=== PATIENT | male | born 1965 | race Caucasian/White ===

== ENCOUNTER 2023-06-30 15:52 | Outpatient (OUT) | payer OTHER, SELFPAY ==
[2023-06-30 16:30] LABS: BUN Creatinine Ratio 18.7; Carbon Dioxide 27.9 mmol/L (21.0-32.0); Chloride 109 mmol/L (98-107); Estimated GFR (African America >60 (>=60); Estimated GFR (Non-African Ame >60 (>=60); Glucose 94 mg/dL (74-106); Potassium 3.9 mmol/L (3.5-5.1); Sodium 143 mmol/L (136-145)
== END 2023-06-30 15:53 | disposition home or self-care (01) ==
LOC: LAB 15:52
PROVIDERS: PCP Family Medicine; Visit Provider Nurse Practitioner Acute Care
DX: I10 Essential (primary) hypertension (principal)
CPT/HCPCS: 36415; 80048

== ENCOUNTER 2023-12-07 15:57 | Outpatient (OUT) | payer OTHER, SELFPAY ==
[2023-12-07 16:34] LABS: Anion Gap 12.9; BUN Creatinine Ratio 19.7; Calcium 9.4 mg/dL (8.5-10.1); Carbon Dioxide 26.8 mmol/L (21.0-32.0); Chloride 103 mmol/L (98-107); Estimated GFR (African America 55 (>=60); Estimated GFR (Non-African Ame 45 (>=60); Glucose 92 mg/dL (74-106); Potassium 3.7 mmol/L (3.5-5.1); Sodium 139 mmol/L (136-145)
== END 2023-12-07 15:58 | disposition home or self-care (01) ==
LOC: LAB 15:58
PROVIDERS: PCP Family Medicine; Visit Provider Internal Medicine Interventional Cardiology
DX: I10 Essential (primary) hypertension (principal)
CPT/HCPCS: 36415; 80048

== ENCOUNTER 2024-02-21 15:15 | Outpatient (OUT) | payer OTHER, SELFPAY ==
[2024-02-21 15:55] LABS: Anion Gap 14.8; BUN Creatinine Ratio 19.5; Calcium 9.6 mg/dL (8.5-10.1); Carbon Dioxide 24.8 mmol/L (21.0-32.0); Chloride 105 mmol/L (98-107); Estimated GFR (African America >60 (>=60); Estimated GFR (Non-African Ame 57 (>=60); Glucose 94 mg/dL (74-106); Potassium 3.6 mmol/L (3.5-5.1); Sodium 141 mmol/L (136-145)
== END 2024-02-21 15:16 | disposition home or self-care (01) ==
LOC: LAB 15:16
PROVIDERS: PCP Family Medicine; Visit Provider Internal Medicine Interventional Cardiology
DX: I11.9 Hypertensive heart disease without heart failure (principal)
CPT/HCPCS: 36415; 80048

== ENCOUNTER 2024-04-15 08:09 | Outpatient (OUT) | payer OTHER, SELFPAY ==
--- OUTSIDE RECORDS SUMMARY | 2024-04-15 08:26 | XMS_ITS | CCD ---
Author Organization [facility] Care Team Providers Care Pelletising Extruder Operator Name Role Phone Dimple Milligan Unavailable Emma Guerrero Unavailable Yasmine Joaquin Unavailable SAMSA, MARYURI Consulting Unavailable HOY ., DR VERDIN Primary Care Unavailable SAMSA, MARYURI Attending Unavailable SAMSA, MARYURI Admitting Unavailable LEE, BRANDAN Consulting Unavailable HOY ., DR VERDIN Primary Care Unavailable LEE, BRANDAN Attending Unavailable LEE, BRANDAN Admitting Unavailable HOY ., DR VERDIN Consulting Unavailable HOY ., DR VERDIN Primary Care Unavailable HOY ., DR VERDIN Attending Unavailable HOY ., DR VERDIN Admitting Unavailable HOY ., DR VERDIN Consulting Unavailable HOY ., DR VERDIN Primary Care Unavailable HOY ., DR VERDIN Attending Unavailable HOY ., DR VERDIN Admitting Unavailable [facility], DR PADMINI Ravi Consulting Unavailable HOY ., DR VERDIN Consulting Unavailable HOY ., DR VERDIN Referring Unavailable HOY ., DR VERDIN Primary Care Unavailable HOY ., DR VERDIN Attending Unavailable HOY ., DR VERDIN Admitting Unavailable SAMSA, MARYURI Consulting Unavailable HOY ., DR VERDIN Primary Care Unavailable SAMSA, MARYURI Attending Unavailable SAMSA, MARYURI Admitting Unavailable HOY ., DR VERDIN Consulting Unavailable HOY ., DR VERDIN Primary Care Unavailable HOY ., DR VERDIN Attending Unavailable HOY ., DR VERDIN Admitting Unavailable SAMSA, MARYURI Consulting Unavailable HOY ., DR VERDIN Primary Care Unavailable SAMSA, MARYURI Attending Unavailable SAMSA, MARYURI Admitting Unavailable ANABELLE PAPPAS Consulting Unavailable JASEN .ANABELLE Attending Unavailable JASEN ., ANABELLE Admitting Unavailable HOY ., DR VERDIN Primary Care Unavailable [facility], DR CHACON Consulting Unavailable HOY ., DR VERDIN Primary Care Unavailable [facility] Attending Unavailable [place], DR CHACON Admitting Unavailable SAMSA, MARYURI Consulting Unavailable HOY ., DR VERDIN Primary Care Unavailable SAMSA, MARYURI Attending Unavailable SAMSA, MARYURI Admitting Unavailable HOY ., DR VERDIN Consulting Unavailable HOY ., DR VERDIN Primary Care Unavailable HOY ., DR VERDIN Attending Unavailable HOY ., DR VERDIN Admitting Unavailable MORENO, WINCHA Consulting Unavailable [place], DR CHACON Consulting Unavailable MARTINA ., DR VERDIN Primary Care Unavailable [facility], DR CHACON Attending Unavailable [facility] Admitting Unavailable [place], INES Attending Unavailable [place], INES Attending Unavailable CECI LEE Attending Unavailable DEBORA ROBLES Attending Unavailable DEBORA ROBLES Attending Unavailable DEBORA ROBLES Referring Unavailable ANDRE PRESCOTT Attending Unavailable RAMANDREE, DEBORA Lynch Attending Unavailable Medications Current Medications Medication Drug Class(es) Dates Sig (Normalized) Sig (Original) amoxicillin 875 mg oral tablet (1 source) Penicillin-class Antibacterial Start: 02-15-2022 take 1 tablet by mouth every eight hours Amoxicillin 875 MG 1 tablet Orally every 8 hrs for 10 day(s) Feb, Active aspirin 81 mg chewable tablet (3 sources) Platelet Aggregation Inhibitor, Nonsteroidal Anti-inflammatory Drug Aspirin Low Dose 81 MG Oral for 90 Days Active atorvastatin 80 mg oral tablet (3 sources) HMG-CoA Reductase Inhibitor Atorvastatin Calcium 80 MG Oral for 90 Days Active Breztri Aerosphere (1 source) Breztri Aerosphe re Active carvedilol 25 mg oral tablet (4 sources) alpha-Adrenergic Zohaib, beta-Adrenergic Zohaib Carvedilol 25 MG Oral for 90 Days Active Coreg Active chlorhexidine gluconate 1.2 mg/ml mouthwash (1 source) Start: 02-15-2022 take 10 mL by mouth twice daily Peridex 0.12 % gargle 10 ml Mouth/Throat twice daily Feb, Active clopidogrel 75 mg oral tablet (3 sources) P2Y12 Platelet Inhibitor Clopidogrel Bisulfate 75 MG Oral for 90 Days Active diclofenac sodium 75 mg delayed release oral tablet (3 sources) Nonsteroidal Anti-inflammatory Drug Diclofenac Sodium 75 MG Oral for 90 Days Active doxazosin 4 mg oral tablet (3 sources) alpha-Adrenergic Zohaib Doxazosin Mesylate 4 MG Oral for 90 Days Active famotidine 40 mg oral tablet (1 source) Histamine-2 Receptor Antagonist Start: 02-17-2023 take 1 tablet by mouth every twenty-four hours Pepcid 40 MG 1 tablet at bedtime Orally Once a day for 30 days Feb, Active fenofibrate 145 mg oral tablet (3 sources) Peroxisome Proliferator Receptor alpha Agonist Fenofibrate 145 MG Oral for 90 Days Active furosemide 20 mg oral tablet (3 sources) Loop Diuretic Furosemide 20 MG Oral for 90 Days Active lisinopril 10 mg oral tablet (3 sources) Angiotensin Converting Enzyme Inhibitor Lisinopril 10 MG Oral for 90 Days Active montelukast (1 source) Leukotriene Receptor Antagonist Montelukast Sodium Active oxaprozin (1 source) Nonsteroidal Anti-inflammatory Drug Oxaprozin Active predniSONE 10 mg oral tablet (3 sources) Start: 02-23-2023 prednisone 10 MG as directed with food Orally 5 tablet x 2 days, 4 tablet x2 days, 3 tablet x2 days, 2 tablet x 2 days, 1 tablet x 2 days for 10 days Feb, Active Start: 02-17-2023 take 1 tablet by prabhakar th every twelve hours predniSONE 20 MG 1 tablet Orally bid for 5 day(s) Feb, Active theophylline 400 mg extended release oral tablet (3 sources) Methylxanthine Theophylline ER 400 MG Oral for 30 Days Active Completed/Discontinued Medications Medication Drug Class(es) Dates Sig (Normalized) Sig (Original) olmesartan (4 sources) Angiotensin 2 Receptor Zohaib Benicar Not-Taking triamcinolone acetonide 40 mg/ml injectable suspension (3 sources) Corticosteroid Start: 02-17-2023 Kenalog-40 Feb, 40 mg Problems Active Problems Problem Classification Problem Date Documented Date Episodic/Chronic Allergic reactions (7 sources) Urticaria, unspecified; Translations: [Idiopathic urticaria] Onset: 02-25-2023 Episodic Asthma (1 source) Moderate persistent asthma, uncomplicated; Translations: [MOD PERSISTENT ASTHMA UNCOMPLICATED] Onset: 07-01-2022 Chronic Coronary atherosclerosis and other heart disease (7 sources) Atherosclerotic heart disease of [place] coronary artery without angina pectoris; Translations: [Coronary atherosclerosis due to lipid rich plaque] Onset: 10-01-2022 Chronic Disorders of lipid metabolism (2 sources) Mixed hyperlipidemia; Translations: [Mixed hyperlipidemia] Onset: 05-29-2023 Chronic Essential hypertension (6 sources) Essential (primary) hypertension; Translations: [ESSENTIAL PRIMARY HYPERTENSION] Onset: 06-30-2022 Chronic Heart valve disorders (1 source) 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; Translations: [RHEUMATIC D/O AORTIC TRICUSPID VALV] Onset: 04-20-2022 Chronic Hypertension with complications and secondary hypertension (2 sources) Hypertensive heart disease without heart failure; Translations: [Hypertensive heart disease without heart failure] Onset: 02-21-2024 Chronic Other aftercare (4 sources) Encounter for therapeutic drug level monitoring; Translations: [ENC THERAPEUTC DRUG LEVL MONITORING] Onset: 03-15-2023 Episodic Other aftercare (1 source) Other prison (current) drug therapy; Translations: [OTH KILN OPERATOR CURRENT DRUG THERAPY] Onset: 03-18-2023 Episodic Other aftercare (1 source) long term acute care registered nurse (current) use of aspirin; Translations: [DETENTION CURRENT USE OF ASPIRIN] Onset: 02-27-2023 Episodic Other screening for suspected conditions (not mental disorders or infectious disease) (3 sources) Encounter for screening for malignant neoplasm of prostate; Translations: [Other specified abnormal findings of blood chemistry] Onset: 01-28-2023 Episodic Residual codes; unclassified (4 sources) Obstructive sleep apnea (adult) (pediatric); Translations: [OBSTRUCTIVE SLEEP APNEA] Onset: 07-27-2022 Chronic Substance-related disorders (1 source) Nicotine dependence, cigarettes, uncomplicated; Translations: [NICOTINE DEPEND CIGARETTES UNCOMP] Onset: 02-27-2023 Chronic Past or Other Problems Problem Classification Problem Date Documented Da te Episodic/Chronic Coronary atherosclerosis and other heart disease (4 sources) Presence of coronary angioplasty implant and graft; Translations: [PRESENCE COR ANGPLSTY IMPLANT AND GRAFT] Onset: 09-02-2022 Episodic Disorders of teeth and jaw (1 source) Periapical abscess without sinus Onset: 02-15-2022 Resolved: 02-15-2022 Episodic Nonspecific chest pain (1 source) Chest pain, unspecified; Translations: [CHEST PAIN UNSPECIFIED] Onset: 04-20-2022 Episodic Other lower respiratory disease (4 sources) Dyspnea, unspecified; Translations: [DYSPNEA UNSPECIFIED] Onset: 05-30-2022 Episodic Other lower respiratory disease (4 sources) Shortness of breath; Translations: [SHORTNESS OF BREATH] Onset: 04-18-2022 Episodic Unclassified (2 sources) Acute cough R05.1 Results Test Name Value Interpretation Reference Range Facility 36on 02-22-2024 36 Regarding lab result s from 02/21/2024: MD Karon Crain MA Great. Please let the patient know his serum creatinine is back to normal. No changes in medications. Thanks LM on VM. [facility] Office Visiton 02-21-2024 Follow-up visit [id number] Jada Grigsby 1965 M Date Provider Department Center 02/21/2024 INES MACEDO Family History Problem Relation Age of Onset Heart failure Father Coronary artery disease Father Family Status - Relation Status Age at Father Level of Service:26094 MO OFFICE/OUTPATIENT ESTABLISHED MOD MDM 30 MIN [facility] Office Visiton 11-27-2023 Follow-up visit [id number] Jdaa Grigsby 1965 M Date Provider Department Center 11/27/2023 INES MACEDO Family History Problem Relation Age of Onset Heart failure Father Coronary artery disease Father Family Status - Relation Status Age at Father Level of Service:95916 MO OFFICE/OUTPATIENT ESTABLISHED MOD MDM 30 MIN [facility] Orders Onlyon 06-21-2023 Orders Only [id number] Jada Grigsby 1965 M Date Provider Department Center 06/21/2023 ATUL DIETZ Family History Problem Relation Age of Onset Heart failure Father Coronary artery disease Father Family Status - Relation Status Age at Father [facility] 3606-19-2023 36 Please advise BP are higher than recommended targets. He can double on his Lisinopril and get BMP in 1 week after changes. Please send script and lab order. Thanks. [facility] Office Visiton 05-29-2023 Follow-up visit [id number] Jada Grigsby 1965 M Date Provider Department Center 05/29/2023 [id number] BROUSSARD [facility] Family History Problem Relation Age of Onset Heart failure Father Coronary artery disease Father Family Status - Relation Status Age at Father Level of Service:50060 MO OFFICE/OUTPATIENT ESTABLISHED LOW MDM 20-29 MIN Normal [facility] THEOPHYLLINEon 03-15-2023 THEOPHYLLINE 5.9 ug/mL Critically low 10.0-20.0 [facility] Comment on above: Performed By: #### T ALAN #### [facility] [address] [address] [address] Navneet Godwin CHUCKIE by IFAon 01-23-2023 Antinuclear Antibodies, IFA Positive Abnormal [facility] Comment on above: Result Comment: Nega tive <1:80 Borderline 1:80 Positive >1:80 Performed By: #### C BC #### [facility] [address] [address] [address] Navneet Godwin Centriole Pattern Normal [facility] Comment on above: Performed By: #### C BC #### [facility] [address] [address] [address] Navneet Godwin Centromere Pattern Normal [facility] Comment on above: Performed By: #### C BC #### [facility] [address] [address] [address] Navneet Godwin Homogeneous Pattern 1:80 Normal [facility] Comment on above: Result Comment: ICAP nomenclature: AC-1 Performed By: #### C BC #### [facility] [address] [address] [address] Navneet Godwin Midbody Pattern Normal [facility] Comment on above: Performed By: #### C BC #### [facility] [address] [address] [address] Navneet Godwin Note: Comment Normal [facility] Comment on above: Result Comment: For more information about Hep-2 cell patterns use ANApatterns.org, the official website for the International Consensus on Antinuclear Antibody (CHUCKIE) Patterns (ICAP). A positive CHUCKIE result may occur in healthy individuals (low titer) or be associated with a variety of diseases. See interpretation chart which is not all inclusive: . Pattern Antigen Detected Suggested Disease Association Homogeneous DNA(ds,ss), SLE - High titers Nucleosomes, Histones Drug-induced SLE Speckled Sm, LINOTYPER, SCL-70, SLE,MCTD,PSS (diffuse form), SS-A/SS-B Sjogrens Nucleolar SCL-70, PM-1/SCL High titers Scleroderma, PM/DM Centromere Centromere PSS (limited form) w/Crest syndrome variable Nuclear Dot [id number] Primary Biliary Cirrhosis Nuclear GP210, Primary Biliary Cirrhosis Membrane ofelia A,B,C Performed By: #### C BC #### [facility] [address] [place] [address] Dr. Navneet Godwin Nuclear Dot Pattern Normal [facility] Comment on above: Performed By: #### C BC #### [facility] [address] [place] [address] Dr. Navneet Godwin Nuclear Membrane Pattern Normal [facility] Comment on above: Performed By: #### C BC #### [facility] [address] [place] [address] Dr. Navneet Godwin Nucleolar Pattern Normal [facility] Comment on above: Performed By: #### C BC #### [facility] [address] [place] [address] Dr. Navneet Godwin PCNA Pattern Normal [facility] Comment on above: Performed By: #### C BC #### [facility] [address] [place] [address] Dr. Navneet Godwin Speckled Pattern Normal [facility] Comment on above: Performed By: #### C BC #### [facility] [address] [place] [address] Dr. Navneet Godwin Spindle Apparatus Pattern Normal [facility] Comment on above: Performed By: #### C BC #### [facility] [address] [place] [address] Dr. Navneet Godwin INSULINon 01-23-2023 Insulin 50.9 uIU/mL Critically high 2.6-24.9 [facility] Comment on above: Performed By: #### I NSULIN #### [facility] [address] [place] [address] Dr. Navneet Godwin ANTISTREPTOLYSIN O AB (ASO)o n 01-22-2023 Antistreptolysin O Ab 55.6 IU/mL Normal 0.0-200.0 [facility] Comment on above: Performed By: #### H GB #### [facility] [address] [place] [address] Dr. Navneet Godwin RHEUMATOID FACTORon 01-23-20 RA Latex Turbid. <10.0 Normal <14.0 [facility] Comment on above: Performed By: #### H GB #### [facility] [address] [place] [address] Dr. Navneet Godwin CBC AUTO DIFFon 01-21-2023 BASO # 0.0 103/ul Normal 0.0-0.1 [facility] Comment on above: Performed By: #### C BC #### [facility] [address] [place] [address] Dr. Navneet Godwin Basophils/100 WBC (Bld) 0.8 % Normal 0.2-2.0 [facility] Comment on above: Performed By: #### C BC #### [facility] [address] [place] [address] Dr. Navneet Godwin EO # 0.1 103/ul Normal 0.0-0.7 [facility] Comment on above: Performed By: #### C BC #### [facility] [address] [place] [address] Dr. Navneet Godwin Eosinophils/100 WBC (Bld) 2.1 % Normal 0.9-7.0 [facility] Comment on above: Performed By: #### C BC #### [facility] [address] [place] [address] Dr. Navneet Godwin Erythrocyte distribution width (RBC) [Ratio] 13.7 % Normal 11.0-15.0 [facility] Comment on above: Performed By: #### C BC #### [facility] [address] [place] [address] Dr. Navneet Godwin Hematocrit (Bld) [Volume fraction] 37.6 % Critically low 42.0-54.0 [facility] Comment on above: Performed By: #### C BC #### [facility] [address] [place] [address] Dr. Navneet Godwin Hemoglobin (Bld) [Mass/Vol] 12.7 g/dL Critically low 14.0-18.0 [facility] Comment on above: Performed By: #### C BC #### [facility] [address] [place] [address] Dr. Navneet Godiwn IG # 0.01 10e3/ul Normal 0.00-0.03 [facility] Comment on above: Performed By: #### C BC #### [facility] [address] [place] [address] Dr. Navneet Godwin IG % 0.2 % Normal 0.0-0.5 [facility] Comment on above: Performed By: #### C BC #### [facility] [address] [place] [address] Dr. Navneet Godwin LYMPH # 1.8 103/ul Normal 1.2-3.8 [facility] Comment on above: Performed By: #### C BC #### [facility] [address] [place] [address] Dr. Navneet Godwin Lymphocytes/100 WBC (Bld) 33.1 % Normal 20.5-60.0 [facility] Comment on above: Performed By: #### C BC #### [facility] [address] [place] [address] Dr. Navneet Godwin MANUAL DIFF REQ NO Normal [facility] [place] Comment on above: Performed By: #### C BC #### [facility] [address] [place] [address] Dr. Navneet Godwin MCH (RBC) [Entitic mass] 29.4 pg Normal 25.9-34.0 [facility] Comment on above: Performed By: #### C BC #### [facility] [address] [place] [address] Dr. Navneet Godwin MCHC (RBC) [Mass/Vol] 33.8 g/dL Normal 29.9-35.2 [facility] Comment on above: Performed By: #### C BC #### [facility] [address] [place] [address] Dr. Navneet Godwin MCV (RBC) [Entitic vol] 87.0 fL Normal 80.0-94.0 [facility] Comment on above: Performed By: #### C BC #### [facility] [address] [place] [address] Dr. Navneet Godwin MONO # 0.4 103/ul Normal 0.3-0.8 [facility] Comment on above: Performed By: #### C BC #### [facility] [address] [place] [address] Dr. Navneet Godwin Monocytes/100 WBC (Bld) 8.1 % Normal 1.7-12.0 [facility] Comment on above: Performed By: #### C BC #### [facility] [address] [place] [address] Dr. Navneet Godwin NEUT # 2.9 103/ul Normal 1.4-6.5 [facility] Comment on above: Performed By: #### C BC #### [facility] [address] [place] [address] Dr. Navneet Godwin Neutrophils/100 WBC (Bld) 55.7 % Normal 43.0-75.0 [facility] Comment on above: Performed By: #### C BC #### [facility] [address] [place] [address] Dr. Navneet Godwin Platelet mean volume (Bld) [Entitic vol] 10.6 fL Normal 9.5-13.5 [facility] Comment on above: Performed By: #### C BC #### [facility] [address] [place] [address] Dr. Navneet Godwin PLT 236 103/ul Normal 150-450 [facility] Comment on above: Performed By: #### C BC #### [facility] [address] [place] [address] Dr. Navneet Godwin RBC 4.32 106/ul Critically low 4.70-6.10 [facility] [place] Comment on above: Performed By: #### C BC #### [facility] [address] [place] [address] Dr. Navneet Godwin WBC 5.3 103/ul Normal 4.0-11.0 [facility] Comment on above: Performed By: #### C BC #### [facility] [address] [address] [address] Navneet Godwin CRPon 01-21-2023 CRP [Mass/Vol] mg/L Normal <=1.0 [facility] Comment on above: Performed By: #### H GB #### [facility] [address] [address] [address] Navneet Godwin FREE THYROXINE INDEX T7on FTI 2.59 Normal 1.30-4.50 [facility] Comment on above: Performed By: #### C BC #### [facility] [address] [address] [address] Navneet Godwin T3U 32.0 % Critically low 33.0-40.0 [facility] Comment on above: Performed By: #### C BC #### [facility] [address] [place] [address] Dr. Navneet Godwin T4 [Mass/Vol] 8.10 ug/dL Normal 4.50-12.10 [facility] Comment on above: Performed By: #### C BC #### [facility] [address] [address] [address] Navneet Godwin GLYCOHEMOGLOBIN A1Con 2022 ADA RECOMMENDATION SEE BELOW Normal [facility] Comment on above: Result Comment: ADA RECOMMENDED LIMIT 4.0 - 6.0 ADA THERAPEUTIC TARGET < 7.0 ACTION SUGGESTED > 7.0 Performed By: #### H GB #### [facility] [address] [place] [address] Dr. Navneet Godwin Glucose [Mass/Vol] 126 mg/dL Normal [facility] Comment on above: Performed By: #### H GB #### [facility] [address] [place] [address] Dr. Navneet Godwin HbA1c (Bld) [Mass fraction] 6.0 % Normal 4.5-6.2 [facility] Comment on above: Performed By: #### H GB #### [facility] [address] [place] [address] Dr. Navneet Godwin LIPID PROFILEon 01-21-2023 CHOL-HDL RATIO NORM SEE BELOW Normal [facility] Comment on above: Result Comment: 3.3 - 4.4 LOW RISK 4.4 - 7.1 AVERAGE RISK 7.1 - 11.0 MODERATE RISK >11.0 HIGH RISK Performed By: #### C BC #### [facility] [address] [address] [address] Navneet Godwin Cholesterol [Mass/Vol] 96 mg/dL Normal <=200 [facility] Comment on above: Performed By: #### C BC #### [facility] [address] [address] [address] Navneet Godwin Cholesterol in HDL [Mass/Vol] 45 mg/dL Normal 40-60 [facility] Comment on above: Performed By: #### C BC #### [facility] [address] [address] [address] Navneet Godwin Cholesterol in LDL [Mass/Vol] 37.2 mg/dL Normal [facility] Comment on above: Performed By: #### C BC #### [facility] [address] [address] [address] Navneet Godwin Cholesterol.total/C holesterol in HDL [Mass ratio] 2.1 {ratio} Normal [facility] Comment on above: Performed By: #### C BC #### [facility] [address] [address] [address] Navneet Godwin HDL NORMAL > or = 60 mg/dl - LO W CARDIOVASCULAR RISK <40 mg/dl - HIGH CARDIOVASCULAR RISK Normal [facility] Comment on above: Performed By: #### C BC #### [facility] [address] [address] [address] Navneet Godwin LDL CALC NORMAL SEE BELOW Normal [facility] Comment on above: Result Comment: <100 mg/dl OPTIMAL 100 - 129 mg/dl NEAR OR ABOVE OPTIMAL 130 - 159 mg/dl BORDERLINE HIGH 160 - 189 mg/dl HIGH >190 mg/dl VERY HIGH Performed By: #### C BC #### [facility] [address] [address] [address] Navneet Godwin Triglyceride [Mass/Vol] 69 mg/dL Normal <=150 [facility] Comment on above: Performed By: #### C BC #### [facility] [address] [place] [address] Dr. Navneet Godwin VLDL CALC 13.8 mg/dL Normal [facility] Comment on above: Performed By: #### C BC #### [facility] [address] [place] [address] Dr. Navneet Godwin OCC BLD IMMUNO SCREENon 01-04 OCCULT BLOOD Negative Normal NEGATIVE [facility] Comment on above: Performed By: #### O BSCRN #### [facility] [address] [place] [address] Dr. Navneet Godwin PROF 14(COMP METB)on 023 Albumin [Mass/Vol] 4.1 g/dL Normal 3.4-5.0 [facility] Comment on above: Performed By: #### C BC #### [facility] [address] [place] [address] Dr. Navneet Godwin Albumin/Globulin [Mass ratio] 1.4 {ratio} Normal [facility] Comment on above: Performed By: #### C BC #### [facility] [address] [place] [address] Dr. Navneet Godwin ALP [Catalytic activity/Vol] 40 U/L Critically low 46-116 [facility] Comment on above: Performed By: #### C BC #### [facility] [address] [place] [address] Dr. Navneet Godwin ALT [Catalytic activity/Vol] 33 U/L Normal 16-63 [facility] Comment on above: Performed By: #### C BC #### [facility] [facility] [address] [place] [address] Dr. Navneet Godwin Anion gap [Moles/Vol] 14.6 mmol/L Normal [facility] Comment on above: Performed By: #### C BC #### [facility] [address] [place] [address] Dr. Navneet Godwin AST [Catalytic activity/Vol] 33 U/L Normal 15-37 [facility] Comment on above: Performed By: #### C BC #### [facility] [address] [address] [address] Navneet Godwin Bilirubin [Mass/Vol] 0.4 mg/dL Normal 0.2-1.0 [facility] Comment on above: Performed By: #### C BC #### [facility] [address] [address] [address] Navneet Godwin Calcium [Mass/Vol] 9.2 mg/dL Normal 8.5-10.1 [facility] Comment on above: Performed By: #### C BC #### [facility] [address] [address] [address] Navneet Godwin Chloride [Moles/Vol] 109 mmol/L Critically high 98-107 [facility] Comment on above: Performed By: #### C BC #### [facility] [address] [place] [address] Dr. Navneet Godwin CO2 [Moles/Vol] 23.1 mmol/L Normal 21.0-32.0 [facility] Comment on above: Performed By: #### C BC #### [facility] [address] [place] [address] Dr. Navneet Godwin Creatinine [Mass/Vol] 1.12 mg/dL Normal 0.70-1.30 [facility] Comment on above: Performed By: #### C BC #### [facility] [address] [place] [address] Dr. Navneet Godwin EGFR-AF BOLIVIAN >60 Normal >=60 [facility] Comment on above: Performed By: #### C BC #### [facility] [address] [place] [address] Dr. Navneet Godwin EGFR-NON AF BOLIVIAN >60 Normal >=60 [facility] Comment on above: Performed By: #### C BC #### [facility] [address] [place] [address] Dr. Navneet Godwin Globulin (S) [Mass/Vol] 2.9 g/dL Normal [facility] Comment on above: Performed By: #### C BC #### [facility] [address] [place] [address] Dr. Navneet Godwin Glucose [Mass/Vol] 109 mg/dL Critically high 74-106 [facility] Comment on above: Performed By: #### C BC #### [facility] [address] [address] [address] Navneet Godwin Potassium [Moles/Vol] 3.7 mmol/L Normal 3.5-5.1 [facility] Comment on above: Performed By: #### C BC #### [facility] [address] [address] [address] Navneet Godwin Protein [Mass/Vol] 7.0 g/dL Normal 6.4-8.2 [facility] Comment on above: Performed By: #### C BC #### [facility] [address] [address] [address] Navneet Godwin Sodium [Moles/Vol] 143 mmol/L Normal 136-145 [facility] Comment on above: Performed By: #### C BC #### [facility] [address] [address] [address] Navneet Godwin Urea nitrogen [Mass/Vol] 18.0 mg/dL Normal 7.0-18.0 [facility] Comment on above: Performed By: #### C BC #### [facility] [address] [address] [address] Navneet Godwin Urea nitrogen/Creatinine [Mass ratio] 16.1 mg/mg Normal [facility] Comment on above: Performed By: #### C BC #### [facility] [address] [address] [address] Navneet Godwin TSHon 01-21-2023 TSH 1.912 uIU/mL Normal 0.358-3.[address] [facility] Comment on above: Performed By: #### H GB #### [facility] [address] [address] [address] Navneet Godwin URIC ACID SERUMon 01-21-2023 Urate [Mass/Vol] 6.9 mg/dL Normal 3.5-7.2 [facility] Comment on above: Performed By: #### H GB #### [facility] [address] [address] [address] Navneet Godwin THEOPHYLLINEon 12-26-2022 THEOPHYLLINE 5.3 ug/mL Critically low 10.0-20.0 [facility] Comment on above: Performed By: #### C BC #### [facility] [address] [address] [address] Navneet Godwin LIPID PROFILEon 10-01-2022 CHOL-HDL RATIO NORM SEE BELOW Normal [facility] Comment on above: Result Comment: 3.3 - 4.4 LOW RISK 4.4 - 7.1 AVERAGE RISK 7.1 - 11.0 MODERATE RISK >11.0 HIGH RISK Performed By: #### L IPID, CMP #### [facility] [address] [address] [address] Navneet Godwin Cholesterol [Mass/Vol] 92 mg/dL Normal <=200 [facility] Comment on above: Performed By: #### L IPID, CMP #### [facility] [address] [address] [address] Navneet Godwin Cholesterol in HDL [Mass/Vol] 40 mg/dL Normal 40-60 [facility] Comment on above: Performed By: #### L IPID, CMP #### [facility] [address] [address] [address] Navneet Godwin Cholesterol in LDL [Mass/Vol] 33.2 mg/dL Normal [facility] Comment on above: Performed By: #### L IPID, CMP #### [facility] [address] [address] [address] Navneet Godwin Cholesterol.total/C holesterol in HDL [Mass ratio] 2.3 {ratio} Normal [facility] Comment on above: Performed By: #### L IPID, CMP #### [facility] [address] [address] [address] Navneet Godwin HDL NORMAL > or = 60 mg/dl - LO W CARDIOVASCULAR RISK <40 mg/dl - HIGH CARDIOVASCULAR RISK Normal [facility] Comment on above: Performed By: #### L IPID, CMP #### [facility] [address] [address] [address] Navneet Godwin LDL CALC NORMAL SEE BELOW Normal [facility] Comment on above: Result Comment: <100 mg/dl OPTIMAL 100 - 129 mg/dl NEAR OR ABOVE OPTIMAL 130 - 159 mg/dl BORDERLINE HIGH 160 - 189 mg/dl HIGH >190 mg/dl VERY HIGH Performed By: #### L IPID, CMP #### [facility] [address] [address] [address] Navneet Godwin Triglyceride [Mass/Vol] 94 mg/dL Normal <=150 [facility] Comment on above: Performed By: #### L IPID, CMP #### [facility] [address] [address] [address] Navneet Godwin VLDL CALC 18.8 mg/dL Normal [facility] Comment on above: Performed By: #### L IPID, CMP #### [facility] [address] [place] [address] Dr. Navneet Godwin PROF 14(COMP METB)on 022 Albumin [Mass/Vol] 3.6 g/dL Normal 3.4-5.0 [facility] Comment on above: Performed By: #### L IPID, CMP #### [facility] [address] [address] [address] Navneet Godwin Albumin/Globulin [Mass ratio] 1.2 {ratio} Normal [facility] Comment on above: Performed By: #### L IPID, CMP #### [facility] [address] [address] [address] Navneet Godwin ALP [Catalytic activity/Vol] 45 U/L Critically low 46-116 [facility] Comment on above: Performed By: #### L IPID, CMP #### [facility] [address] [address] [address] Navneet Godwin ALT [Catalytic activity/Vol] 25 U/L Normal 16-63 [facility] Comment on above: Performed By: #### L IPID, CMP #### [facility] [address] [address] [address] Navneet Godwin Anion gap [Moles/Vol] 13.5 mmol/L Normal [facility] Comment on above: Performed By: #### L IPID, CMP #### [facility] [address] [address] [address] Navneet Godwin AST [Catalytic activity/Vol] 37 U/L Normal 15-37 [facility] Comment on above: Performed By: #### L IPID, CMP #### [facility] [address] [place] [address] Dr. Navneet Godwin Bilirubin [Mass/Vol] 0.4 mg/dL Normal 0.2-1.0 [facility] Comment on above: Performed By: #### L IPID, CMP #### [facility] [address] [place] [address] Dr. Navneet Godwin Calcium [Mass/Vol] 8.9 mg/dL Normal 8.5-10.1 [facility] Comment on above: Performed By: #### L IPID, CMP #### [facility] [address] [place] [address] Dr. Nvaneet Godwin Chloride [Moles/Vol] 109 mmol/L Critically high 98-107 [facility] Comment on above: Performed By: #### L IPID, CMP #### [facility] [address] [place] [address] Dr. Navneet Godwin CO2 [Moles/Vol] 25.3 mmol/L Normal 21.0-32.0 [facility] Comment on above: Performed By: #### L IPID, CMP #### [facility] [address] [place] [address] Dr. Navneet Godwin Creatinine [Mass/Vol] 1.07 mg/dL Normal 0.70-1.30 [facility] Comment on above: Performed By: #### L IPID, CMP #### [facility] [address] [place] [address] Dr. Navneet Godwin EGFR-AF BOLIVIAN >60 Normal >=60 [facility] Comment on above: Performed By: #### L IPID, CMP #### [facility] [address] [place] [address] Dr. Navneet Godwin EGFR-NON AF BOLIVIAN >60 Normal >=60 [facility] Comment on above: Performed By: #### L IPID, CMP #### [facility] [address] [address] [address] Navneet Godwin Globulin (S) [Mass/Vol] 3.1 g/dL Normal [facility] Comment on above: Performed By: #### L IPID, CMP #### [facility] [address] [place] [address] Dr. Navneet Godwin Glucose [Mass/Vol] 115 mg/dL Critically high 74-106 [facility] Comment on above: Performed By: #### L IPID, CMP #### [facility] [address] [place] [address] Dr. Navneet Godwin Potassium [Moles/Vol] 3.8 mmol/L Normal 3.5-5.1 [facility] Comment on above: Performed By: #### L IPID, CMP #### [facility] [address] [place] [address] Dr. Navneet Godwin Protein [Mass/Vol] 6.7 g/dL Normal 6.4-8.2 [facility] Comment on above: Performed By: #### L IPID, CMP #### [facility] [address] [place] [address] Dr. Navneet Godwin Sodium [Moles/Vol] 144 mmol/L Normal 136-145 [facility] Comment on above: Performed By: #### L IPID, CMP #### [facility] [address] [place] [address] Dr. Navneet Godwin Urea nitrogen [Mass/Vol] 21.0 mg/dL Critically high 7.0-18.0 [facility] Comment on above: Performed By: #### L IPID, CMP #### [facility] [address] [place] [address] Dr. Navneet Godwin Urea nitrogen/Creatinine [Mass ratio] 19.6 mg/mg Normal [facility] Comment on above: Performed By: #### L IPID, CMP #### [facility] [address] [place] [address] Dr. Navneet Godwin ASPERGILLUS AB, QUANTITATIVE DIDon 07-08-2022 Aspergillus flavus Negative Normal Neg:<1:1 [facility] Comment on above: Performed By: #### C BC #### [facility] [address] [place] [address] Dr. Navneet Godwin Aspergillus fumigatus Negative Normal Neg:<1:1 [facility] Comment on above: Performed By: #### C BC #### [facility] [address] [place] [address] Dr. Navneet Godwin Aspergillus niger Negative Normal Neg:<1:1 [facility] Comment on above: Performed By: #### C BC #### [facility] [address] [place] [address] Dr. Navneet Godwin IMMUNOGLOBULIN E, TOTALon Immunoglobulin E, Total 102 IU/mL Normal 6-495 [facility] Comment on above: Performed By: #### C BC #### [facility] [address] [place] [address] Dr. Navneet Godwin ANTI NEUTROPHIL CYTOPLASMIC AB (ANCA) PRon 07-05-2022 Anti-MPO Antibodies <0.2 Normal 0.0-0.9 [facility] Comment on above: Result Comment: Perf ormed at: BN Performed By: #### H GB #### [facility] [address] [place] [address] Dr. Navneet Godwin Anti-PR3 Antibodies <0.2 Normal 0.0-0.9 [facility] Comment on above: Result Comment: Perf ormed at: BN Performed By: #### H GB #### [facility] [address] [place] [address] Dr. Navneet Godwin Atypical pANCA <1:20 Normal Neg:<1:20 [facility] Comment on above: Result Comment: The atypical pANCA pattern has been observed in a significant percentage of patients with ulcerative colitis, primary sclerosing cholangitis and autoimmune hepatitis. Performed at: CB Performed By: #### H GB #### [facility] [address] [place] [address] Dr. Navneet Godwin Cytoplasmic (C-ANCA) <1:20 Normal Neg:<1:20 [facility] Comment on above: Result Comment: Perf ormed at: CB Performed By: #### H GB #### [facility] [address] [place] [address] Dr. Navneet Godwin Perinuclear (P-ANCA) <1:20 Normal Neg:<1:20 [facility] Comment on above: Result Comment: The presence of positive fluorescence exhibiting P-ANCA or C-ANCA patterns alone is not specific for the diagnosis of Phoenix's Granulomatosis (WG) or microscopic polyangiitis. Decisions about treatment should not be based solely on ANCA IFA results. The International ANCA [employer] Consensus recommends follow up testing of positive sera with both MO-3 and MPO-ANCA enzyme immunoassays. As many as 5% serum samples are positive only by EIA. Ref. AM J Clin Pathol 1999;111:507-513. Performed at: CB Performed By: #### H GB #### [facility] [address] [place] [address] Dr. Navneet Godwin CBC AUTO DIFFon 06-30-2022 BASO # 0.0 103/ul Normal 0.0-0.1 [facility] Comment on above: Performed By: #### C BC #### [facility] [address] [place] [address] Dr. Navneet Godwin Basophils/100 WBC (Bld) 0.7 % Normal 0.2-2.0 [facility] Comment on above: Performed By: #### C BC #### [facility] [address] [place] [address] Dr. Navneet Godwin EO # 0.1 103/ul Normal 0.0-0.7 [facility] Comment on above: Performed By: #### C BC #### [facility] [address] [place] [address] Dr. Navneet Godwin Eosinophils/100 WBC (Bld) 1.9 % Normal 0.9-7.0 [facility] Comment on above: Performed By: #### C BC #### [facility] [address] [place] [address] Dr. Navneet Godwin Erythrocyte distribution width (RBC) [Ratio] 12.5 % Normal 11.0-15.0 [facility] Comment on above: Performed By: #### C BC #### [facility] [address] [place] [address] Dr. Navneet Godwin Hematocrit (Bld) [Volume fraction] 38.6 % Critically low 42.0-54.0 [facility] Comment on above: Performed By: #### C BC #### [facility] [address] [place] [address] Dr. Navneet Godwin Hemoglobin (Bld) [Mass/Vol] 12.9 g/dL Critically low 14.0-18.0 [facility] Comment on above: Performed By: #### C BC #### [facility] [address] [place] [address] Dr. Navneet Godwin IG # 0.01 10e3/ul Normal 0.00-0.03 [facility] Comment on above: Performed By: #### C BC #### [facility] [address] [place] [address] Dr. Navneet Godwin IG % 0.2 % Normal 0.0-0.5 [facility] Comment on above: Performed By: #### C BC #### [facility] [address] [place] [address] Dr. Navneet Godwin LYMPH # 2.4 103/ul Normal 1.2-3.8 [facility] Comment on above: Performed By: #### C BC #### [facility] [address] [place] [address] Dr. Navneet Godwin Lymphocytes/100 WBC (Bld) 41.7 % Normal 20.5-60.0 [facility] Comment on above: Performed By: #### C BC #### [facility] [address] [place] [address] Dr. Navneet Godwin MANUAL DIFF REQ NO Normal [facility] Comment on above: Performed By: #### C BC #### [facility] [address] [place] [address] Dr. Navneet Godwin MCH (RBC) [Entitic mass] 29.8 pg Normal 25.9-34.0 [facility] Comment on above: Performed By: #### C BC #### [facility] [address] [place] [address] Dr. Navneet Godwin MCHC (RBC) [Mass/Vol] 33.4 g/dL Normal 29.9-35.2 [facility] Comment on above: Performed By: #### C BC #### [facility] [address] [place] [address] Dr. Navneet Godwin MCV (RBC) [Entitic vol] 89.1 fL Normal 80.0-94.0 [facility] Comment on above: Performed By: #### C BC #### [facility] [address] [place] [address] Dr. Navneet Godwin MONO # 0.6 103/ul Normal 0.3-0.8 [facility] Comment on above: Performed By: #### C BC #### [facility] [address] [place] [address] Dr. Navneet Godwin Monocytes/100 WBC (Bld) 10.5 % Normal 1.7-12.0 [facility] Comment on above: Performed By: #### C BC #### [facility] [address] [place] [address] Dr. Navneet Godwin NEUT # 2.6 103/ul Normal 1.4-6.5 [facility] Comment on above: Performed By: #### C BC #### [facility] [address] [place] [address] Dr. Navneet Godwin Neutrophils/100 WBC (Bld) 45.0 % Normal 43.0-75.0 [facility] Comment on above: Performed By: #### C BC #### [facility] [address] [place] [address] Dr. Navneet Godwin Platelet mean volume (Bld) [Entitic vol] 10.1 fL Normal 9.5-13.5 [facility] Comment on above: Performed By: #### C BC #### [facility] [address] [place] [address] Dr. Navneet Godwin PLT 296 103/ul Normal 150-450 [facility] Comment on above: Performed By: #### C BC #### [facility] [address] [address] [address] Navneet Godwin RBC 4.33 106/ul Critically low 4.70-6.10 [facility] Comment on above: Performed By: #### C BC #### [facility] [address] [place] [address] Dr. Navneet Godwin WBC 5.8 103/ul Normal 4.0-11.0 [facility] Comment on above: Performed By: #### C BC #### [facility] [address] [place] [address] Dr. Navneet Godwin PROF CHEM 8 (BAS METB)on Anion gap [Moles/Vol] 13.2 mmol/L Normal [facility] Comment on above: Performed By: #### B MP #### [facility] [address] [place] [address] Dr. Navneet Godwin Calcium [Mass/Vol] 9.1 mg/dL Normal 8.5-10.1 [facility] Comment on above: Performed By: #### B MP #### [facility] [address] [place] [address] Dr. Navneet Godwin Chloride [Moles/Vol] 106 mmol/L Normal 98-107 [facility] Comment on above: Performed By: #### B MP #### [facility] [address] [place] [address] Dr. Navneet Godwin CO2 [Moles/Vol] 23.7 mmol/L Normal 21.0-32.0 [facility] Comment on above: Performed By: #### B MP #### [facility] [address] [place] [address] Dr. Navneet Godwin Creatinine [Mass/Vol] 1.06 mg/dL Normal 0.70-1.30 [facility] Comment on above: Performed By: #### B MP #### [facility] [address] [place] [address] Dr. Navneet Godwin EGFR-AF BOLIVIAN >60 Normal >=60 [facility] Comment on above: Performed By: #### B MP #### [facility] [address] [address] [address] Navneet Godwin EGFR-NON AF BOLIVIAN >60 Normal >=60 [facility] Comment on above: Performed By: #### B MP #### [facility] [address] [address] [address] Navneet Godwin Glucose [Mass/Vol] 94 mg/dL Normal 74-106 [facility] Comment on above: Performed By: #### B MP #### [facility] [address] [address] [address] Navneet Godwin Potassium [Moles/Vol] 3.9 mmol/L Normal 3.5-5.1 [facility] Comment on above: Performed By: #### B MP #### [facility] [address] [address] [address] Navneet Godwin Sodium [Moles/Vol] 139 mmol/L Normal 136-145 [facility] Comment on above: Performed By: #### B MP #### [facility] [address] [address] [address] Navneet Godwin Urea nitrogen [Mass/Vol] 17.0 mg/dL Normal 7.0-18.0 [facility] Comment on above: Performed By: #### B MP #### [facility] [address] [address] [address] Navneet Godwin Urea nitrogen/Creatinine [Mass ratio] 16.0 mg/mg Normal [facility] Comment on above: Performed By: #### B MP #### [facility] [address] [address] [address] Navneet Godwin XR CHEST 2 Von 05-30-2022 XR CHEST 2 V EXAM: CHEST 2 VIEWS HISTORY: Screening mammography prior smoker, shortness of breath for one year TECHNIQUE: PA and lateral views chest. COMPARISON: 01/21/2022. FINDINGS: The lungs are clear. There is no focal lung consolidation, pleural effusion or pneumothorax. Pulmonary vasculature is within normal limits. The cardiomediastinal silhouette is normal. There is a punctate calcification overlying the right scapula, unchanged. There are mild degenerative changes of the spine. IMPRESSION: 1. Stable chest. No acute cardiopulmonary disease. Electronically authenticated by: MICKY MORENO Date: 2022-05-30 10:52 Normal [facility] ECHOCARDIO M/2D COMPLETEon 0 04-18-2022 ECHOCARDIO M/2D COMPLETE Patient: PARAS GRIGSBY Exam Date: 04/18/2022 : 1965 Gender:M Ordering : DR LAMBERT JOSE . Admission #: [id number] Family : Order #: [id number] CLICK HERE TO VIEW EXAM ECHOCARDIOGRAM REPORT PROCEDURE: CARDIO PULMONARY ECHOCARDIO M/2D COMP INDICATIONS: Chest pain, shortness of breath, hypertension, former smoker, emphysema COMPARISON: None. DESCRIPTION: COMPLETE ECHOCARDIOGRAM Real-time transthoracic echocardiography with 2D, M-mode, spectral and color flow Doppler performed. QUALITY: Technical quality was good. LEFT VENTRICLE: Mild dilatation. Normal left ventricular wall thickness. Systolic function is at the lower limits of normal. LV EF: Lower limits of normal left ventricular ejection fraction, (50-55%). DIASTOLIC: Normal diastolic function. ATRIAL SEPTUM: Visually appears intact. LEFT ATRIUM: Normal chamber size. RIGHT ATRIUM: Normal chamber size. RIGHT VENTRICLE: Normal chamber size. Normal right ventricular systolic function. TRICUSPID VALVE: Normal mobility and thickness. No stenosis with mild regurgitation. Doppler studies reveal mildly (35-45) elevated right sided pressures. RVSP 38 mmHg MITRAL VALVE: Normal mobility and thickness. No evidence of mitral valve stenosis. There is no mitral annular calcification. No mitral regurgitation. AORTIC VALVE: Normal trileaflet appearance. Thickened aortic valve. Normal leaflet mobility. No evidence of aortic valve stenosis. Mild aortic regurgitation. AORTIC ROOT: Mildly dilated, 3.9 cm. Ascending aorta is normal in size. PULMONIC VALVE: Normal thickness and mobility. No stenosis. No regurgitation. PERICARDIUM: No evidence of pericardial effusion. IVC: Collapses with inspirations. PLEURA: CONCLUSION: 1. Left ventricular systolic function is at the lower limits of normal. The left ventricle is mildly dilated. LVEF is 50 to 55%. 2. Right ventricular systolic function is normal. 3. Normal diastolic function. 4. Mild aortic valve regurgitation. 5. Mild tricuspid regurgitation. 6. Mildly elevated right-sided pressures. 7. Aortic root is mildly dilated, 3.9 cm. Adult Echocardiography Procedure Report Left Ventricle LVEDD (3.7 - 5.6 cm): 5.81 cm LVESD (2.2 - 4.0 cm): 3.96 cm LVIVS thickness (0.6 - 1.2 cm): 9.99 mm LVPW thickness (0.5 - 1.0 cm): 1.07 cm e': 9.32 cm/s E - e': 8.30 LVOT Area (cm2): 5.31 cm2 LVOT Diameter 2.60 cm Left Ventricular Ejection Fraction: 50-55 % Left Atrium LA Volume Index (2D A2C): 37.90 ml/m2 Left Atrium Systolic Dimension: 4.10 cm Left Atrium Systolic Area(A2C): 25.80 cm2 Left Atrium Systolic Area(A4C): 16.30 cm2 Left Atrium Systolic Volume(A2C): 64098 mm3 Left Atrium Systolic Volume(A4C): 12237 mm3 Mitral Valve MV E to A Ratio: 1 Mitral Valve A-Wave Peak Velocity: 73.10 cm/s Mitral Valve E-Wave Peak Velocity: 55.80 cm/s Mitral Valve A-Wave Peak Velocity: 77.00 cm/s Mitral Valve E-Wave Peak Velocity: 77.00 cm/s Deceleration Time: 213 ms Right Ventricle Aorta AO Root Diam: 3.90 cm Aortic Valve AoV Area (Peak Chandler): 4.04 cm2 Peak Velocity(Antegrade Flow): 151.00 cm/s Peak Gradient(Antegrade Flow): 9 mm[Hg] Tricuspid Valve Pulmonic Valve Peak Velocity: 98.70 cm/s Peak Gradient: 4 mm[Hg] Right Atrium Dictated by: Arturo Yu M.D. on 04/19/2022 at 18:10 Approved by: Arturo Yu M.D. on 04/19/2022 at 18:16 Normal [facility] CTA CHEST WO W CONon -06-2 022 CTA CHEST WO W CON EXAMINATION: CTA YOU ST WO W CON HISTORY: Dyspnea COMPARISON: 01/21/2022 chest x-ray TECHNIQUE: Axial, Coronal, and Sagittal images were created without and with IV contrast. Dose reduction techniques were achieved by using automated exposure control and/or adjustment of mA and/or kV according to patient size and/or use of iterative reconstruction technique. FINDINGS: LUNGS: Minimal scattered emphysematous change most significant in the left apex. No significant pulmonary nodule or mass. PLEURA: No mass, effusion, or pneumothorax. VASCULATURE: Normal postcontrast opacification of the central pulmonary arterial tree PHYLICIA: No mass or adenopathy. MEDIASTINUM: No mass or adenopathy. CARDIAC: No enlargement, pericardial thickening, or significant calcification. AORTA: No aneurysm or dissection. CHEST WALL: No mass or axillary adenopathy. BONES: No bone lesion or fracture. LIMITED ABDOMEN: No suspicious findings. Limited images of the upper abdomen. OTHER: Negative. IMPRESSION: No central pulmonary thromboembolic disease Electronically authenticated by: PADMINI WHITE Date: 2022-04-11 07:16 Normal [facility] HEMOGLOBINon 03-24-2022 Hemoglobin (Bld) [Mass/Vol] 13.2 g/dL Critically low 14.0-18.0 [facility] Comment on above: Performed By: #### H GB #### [facility] [address] [place] [address] Dr. Navneet Godwin Progress Note-Physicianon Progress Note-Physician Patient: PARAS GRIGSBY Age: 53 years Sex: Male : 1965 Associated Diagnoses: None Author: Sg Thayer Jr, DO Postoperative Information Date/ Time: 10/07/19 09:30:00 Preoperative Diagnosis: Acute postoperative pain.. Postoperative Diagnosis: Acute postoperative pain. Procedure: TAP block. Anesthesia Method: Local, Monitored anesthesia care. Performed by: Sg Thayer Jr, DO. Medications Complications: None. Notes: The patient was interviewed and examined prior to the planned operation. Anesthesia options were discussed including TAP block for postoperative analgesia. This discussion included a description of the procedure, risks and benefits, as well as alternatives to the block. The patients questions were addressed and the patient elected to proceed with the TAP block. The patient was placed in the supine position and monitored with continuous pulse oximetry, non-invasive blood pressure, and electrocardiography. The patient was then induced for general anesthesia and preparations for the proposed operation continued. The LEFT and right ABDOMEN AND FLANK AREA was prepped with ChloraPrep and sterilely draped. Anatomical landmarks were identified with ultrasonographic guidance. A 2 x 22 gauge Stimuplex needle was inserted without pain or paresthesias. Following a negative attempted aspiration for blood,e XParel 1.3% with 0.25% bupivicaine was slowly injected with to a total volume of _30_ cc bilaterally. Periodic negative attempts at aspiration for blood were made as the local was injected. The patient tolerated the procedure well. . Normal [facility] Comment on above: Result Comment: Elec tronically Signed By: Sg Thayer Jr, DO\.br\Date and Time Signed: 10/15/19 10:48 EST Coding Summary.on 10-11-2019 Coding Summary. CODING DATE: 019 FINAL [facility] STATUS: Home (Routine DC) PAYOR: [facility] APC DESCRIPTION 5361 Level 1 Laparoscopy and Related Services ADMIT DX: REASON FOR VISIT DX: K42.9 Umbilical hernia without obstruction or gangrene FINAL DX: PRINCIPAL: K42.9 Umbilical hernia without obstruction or gangrene SECONDARY: I10 Essential (primary) hypertension J44.9 Chronic obstructive pulmonary disease, unspecified PYMT PROC APC STAT DESCRIPTION DOCTOR NAME DATE 98161 5361 J1 Laparoscopy, surgical, Lee HAMPTON MD 10/07/2019 repair, ventral, umbilical, spigelian or epigastric hernia (includes mesh insertion, when performed); reducible 47031 Transversus abdominis Sg Thayer Jr, DO 10/07/2019 plane (TAP) block (abdominal plane block, rectus sheath block) bilateral; by injections (includes imaging guidance, when performed) XP Separate practitioner, a service that is distinct because it was performed by a different practitioner [id number] Anesthesia for hernia Sg Thayer Jr, DO 10/07/2019 repairs in upper abdomen; lumbar and ventral (incisional) hernias and/or wound dehiscence NOTE: The code number assigned matches the documented diagnosis and / or procedure in the patient's chart. However, the narrative phrase printed from the coding software may appear abbreviated, or result in slightly different terminology. Revised Coded By: Tisha Gracia Revised Date Saved: 10/11/2019 11:51 am Normal [facility] Progress Note-Physicianon Progress Note-Physician Patient: PARAS GRIGSBY Age: 53 years Sex: Male : 1965 Associated Diagnoses: None Author: Sg Thayer Jr, DO Preoperative Information Time patient last ate or drank:=== (npo 8 hours) Anesthesia history: Patient history: No prior anesthesia problems. Re-evaluation prior to induction: Completed, Initial evaluation reviewed. Review of Systems Respiratory: No shortness of breath. Cardiovascular: No chest pain. Hematology/Lymphatics: No bruising tendency, No bleeding tendency. Health Status Allergies: Allergic Reactions (All) No Known Medication Allergies Canceled/Inactive Reactions (All) No Known Allergies Current medications: (Selected) Inpatient Medications Ordered Lactated Ringers IV Heather 1000 mL 1,000 mL: 1,000 mL, IV, 150 mL/hr, Routine, Start date 10/07/19 7:30:00 EST, 6.7 hour(s), Total volume (mL): 1,000 ampicillin-sulbactam additive + Sodium Chloride 0.9% intravenous solution 100 mL: 3 gram = 1 EA, IV Piggyback, PREOP, Routine, Start date 10/07/19 7:30:00 EST, 200 mL/hr, Infuse over 30 minute(s) Documented Medications Documented Benicar 40 mg Tab: 40 mg = 1 tab(s), Oral, Daily, High blood pressure Multivitamin, Therapeutic w/ Minerals: 1 tab(s), Oral, Daily, Refill(s) 0, Prophylaxis carvedilol 12.5 mg Tab: 12.5 mg = 1 tab(s), Oral, BID, High blood pressure fenofibrate 145 mg Tab: 145 mg = 1 tab(s), Oral, Daily, Other (see comment) Problem list: All Problems COPD exacerbation / SNOMED CT 452917398 / Confirmed BMI 38.0-38.9,adult / SNOMED CT 232676219 / Confirmed Diabetes / SNOMED CT 693033527 / Confirmed new diagnosis on no meds yet Hypertension / SNOMED CT 7070081370 / Confirmed Hypertensive retinopathy / SNOMED CT 16140692 / Confirmed Umbilical hernia / SNOMED CT 0445905868 / Confirmed Resolved: Kidney stone / SNOMED CT 517704393 Histories Past Medical History: Resolved Kidney stone (024745608): Resolved. Family History: Heart disease Father Leukemia Mother Procedure history: Arthroscopy of knee (552297037). Comments: 09/30/2019 10:32 - Deya Guzman RN and left knee 09/18/2019 11:41 - Jose Ramon Caba RIGHT KNEE Tonsillectomy (319260244). ESWL of kidney (16427148). Arthroscopy of shoulder (816199452). Comments: 09/30/2019 10:33 - Thomas RN, Deya bilateral Social History Social & Psychosocial Habits Alcohol 09/18/2019 Risk Assessment: Denies Alcohol Use Substance Abuse 09/18/2019 Risk Assessment: Denies Substance Abuse Tobacco 09/18/2019 Tobacco Use: Former smoker, quit more Smokeless tobacco use: Never Type: Cigarettes. Physical Examination Vital Signs 10/07/2019 07:25 EST Heart Rate Monitored 75 bpm Systolic Blood Pressure 124 mmHg Diastolic Blood Pressure 77 mmHg Mean Arterial Pressure, Monitered 92 mmHg SpO2 97 % 10/07/2019 07:25 EST Apical Heart Rate 72 bpm Blood Pressure Location Right arm 10/07/2019 07:24 EST Temperature Oral 36.6 DegC Heart Rate Monitored 71 bpm Respiratory Rate 16 br/min Systolic Blood Pressure 123 mmHg Diastolic Blood Pressure 71 mmHg Mean Arterial Pressure, Monitered 89 mmHg SpO2 98 % 10/07/2019 07:24 EST Blood Pressure Location Left arm Respiratory: Lungs are clear to auscultation. Cardiovascular: Normal rate, Regular rhythm. Review / Management Results review Interpretation of Outside Results Chest x-ray results Radiology results ECG interpretation Condition Plan [place] Society of Anesthesiologists (ASA) physical status classification: Class III. Anesthetic Preoperative Plan Anesthesia: General. . Anesthetic plan, risks, benefits, and alternatives discussed with the patient and/or family. Risks discussed: nausea, vomiting, headache, sore throat, dental injury, serious complications. Patient verbalized understanding. Communication: face to face with (patient 5 minutes, Pt educated on the importance of smoking cessation.). [facility] Comment on above: Result Comment: Elec tronically Signed By: Sg Thayer Jr, DO\.ryley\Date and Time Signed: 10/11/19 08:51 EST Main OR Intraoperative Recor don 10-08-2019 Main OR Intraoperative Record IntraOp Document Type FT Summary Primary Physician: Lee HAMPTON MD Finalized Date/Time: 10/08/19 13:41:00 Pt. Name: PARAS GRIGSBY./Sex: 1965 Male Med Rec #: [id number] Physician: Lee HAMPTON MD Financial #: [id number] Pt. Type: A Room/Bed: 03/06 Admit/Disch: 10/07/19 07:08:00 - 10/07/19 15:10:00 Institution: Case Times FT Entry 1 Patient Times In Room 10/07/19 09:32:00 Out Room 10/07/19 11:43:00 Procedure Times Start 10/07/19 10:05:00 Stop 10/07/19 11:36:00 Anesthesia Times Start 10/07/19 09:32:00 Stop 10/07/19 11:43:00 Block Timeout w/ 10/07/19 09:47:00 Anesthesia Last Modified By: Angelica Israel CST 10/07/19 11:42:42 General Comments: 0947- bilateral tap block done by Dr. thayer in OR, while patient under anesthesia and constant vitals taken, Mira Logan RN assisting, area prepped wtih chloraprep and ultrasound used. - barbi arias 1016- robot docked by this RN at patient. - barbi arias 1023- surgeon back to console at this time. - barbi arias 1121- surgeon away from console and rescrubbed. - barbi arias 1122- robot undocked at this time by this RN. - barbi arias 10/08/19 Chart opened to review and send charges Gabriela Israel CST Case Attendance FT Entry 1 Entry 2 Entry 3 Case Attendee Jeovany Lester DO, Sg HAMPTON MD, Lee Logan RN, CNOR, Cheyenne Schaffer Role Performed Anesthesiologist of Surgeon - Primary SHOE STITCHER Record Time In 10/07/19 09:32:00 10/07/19 09:32:00 10/07/19 09:32:00 Time Out 10/07/19 11:43:00 10/07/19 11:43:00 10/07/19 11:43:00 Procedure HERNIA REPAIR, ROBOT HERNIA REPAIR, ROBOT HERNIA REPAIR, ROBOT ASSISTED(.) ASSISTED(.) ASSISTED(.) Comments Last Modified By: Harsh RN, Gricelda House RN, Gricelda Richards RN 10/07/19 11:47:03 10/07/19 11:47:03 10/07/19 11:47:03 Entry 4 Entry 5 Case Attendee Harsh RN, Gricelda Richards CST, Ashely Lynch Role Performed Spring Winder - Primary Scrub - Primary Time In 10/07/19 09:32:00 10/07/19 09:32:00 Time Out 10/07/19 11:43:00 10/07/19 11:43:00 Procedure HERNIA REPAIR, ROBOT HERNIA REPAIR, ROBOT ASSISTED(.) ASSISTED(.) Comments Last Modified By: Gricelda Huose RN, RN, Emily A 10/07/19 11:47:03 10/07/19 11:47:03 Perioperative Protocols FT Pre-Care Text: Implements protective measures prior to operative or invasive procedure, confirms identity before the operative or invasive procedure, verifies operative procedure, surgical site, and laterality Entry 1 Procedure(s) HERNIA REPAIR, ROBOT Patient Identity Birthday, ID Band ASSISTED(.) Verified (select at Check, Patient least 2): Participation Consents / H and P Anesthesia Consent, Operative Site N/A Verified HandP, Surgery/Procedure Marking Verified Consent Surgical Site Yes Laterality Verified n/a Verified Procedure Verified Yes Correct Patient Yes Position Verified Availability Equipment, Implant, Prep Dry n/a Verified (If Medication Applicable) PreOp Antibiotic Yes Time Out Jeovany Lester DO, Sg Jim, Given Participants ALEXIA LEWIS, Doreen Pavon RN, CNOR, Cheyenne Schaffer, Harsh ARIAS, Maurice Ghotra CST, Gwen E Time Out Complete 10/07/19 10:03:00 Outcomes Met? Yes Last Modified By: Gricelda House RN 10/07/19 10:25:26 Post-Care Text: The patient is free from signs and symptoms of injury caused by extraneous objects Allergy Information FT Pre-Care Text: Verifies allergies Entry 1 Allergies Reviewed? Yes Allergies Reviewed Self/Patient With Outcomes Met? Yes Last Modified By: Gricelda House RN 10/07/19 10:25:32 Post-Care Text: The patient received appropriate medication(s) safely administered during the perioperative period Surgical Procedures FT Entry 1 Procedure Description Procedure HERNIA REPAIR, ROBOT Modifiers . ASSISTED Surgeon Description ROBOTIC ASSISTED UMBILICAL HERNIA REPAIR WITH MESH Primary Procedure Yes Primary Surgeon Lee HAMPTON MD Start 10/07/19 10:05:00 Stop 10/07/19 11:36:00 Anesthesia Type General Surgical Service General Wound Class 1 - Clean Last Modified By: Gricelda House RN 10/07/19 11:47:05 General Case Data FT Pre-Care Text: Classifies surgical wound, implements aseptic technique, initiates traffic control Entry 1 Case Information OR OR 6 FT Case Level Level 5 Wound Class 1 - Clean Specialty General ASA Class 3 Preop Diagnosis UMBILICAL HERNIA Postop Same As Preop Yes Postop Diagnosis UMBILICAL HERNIA Outcomes Met? Yes Last Modified By: Gricelda House RN 10/07/19 10:47:36 Post-Care Text: The patient is free from signs and symptoms of infection Skin Assessment (Pre Procedure) FT Pre-Care Text: Implements protective measures to prevent skin/ tissue injury due to thermal or mechanical sources Evaluates for signs and symptoms of physical injury to skin and tissue Entry 1 Skin Integrity Intact, Mur[place]ugh, Warm, and Skin Abnormality No Dry Outcomes Met? Yes Last Modified By: Gricelda House RN 10/07/19 10:25:42 Post-Care Text: The patient is free from signs and symptoms of injury caused by extraneous objects Patient Positioning FT Pre-Care Text: Identifies physical alterations that require additional precautions for procedure-specific positioning, verifies presence of prosthetics or corrective devices, positions the patient, evaluates the patient for signs and symptoms of injury as a result of positioning Entry 1 Procedure HERNIA REPAIR, ROBOT Additional gel arm padding used to ASSISTED(.) Information pad left arm and safety strap x2, disposable goggles used for patient Body Position Supine Feet Uncrossed? Yes Left Arm Position Tucked and Padded at Right Arm Position Extended on Padded Arm Side Board Left Leg Position Extended Right Leg Position Extended Positioning Device Safety Strap, Pillow Press Points Checked Yes Under Head Large, Arm Sled Left, Other/See Comments, [place] Wedge Right Side By Gricelda House RN, Blank Outcomes Met? Yes RN, RAZOR, Cheyenne Schaffer, Jeovany Lester DO, ALEXIA Woody MD, Lee R Last Modified By: Gricelda House RN 10/07/19 10:31:55 Post-Care Text: The patient is free from signs and symptoms of injury related to positioning Patient Care Devices FT Pre-Care Text: Implements protective measures to prevent skin/ tissue injury due to thermal or mechanical sources Entry 1 Entry 2 Entry 3 Equipment Type CAUTERY UNIT[F] INSUFLATORS[F] INSUFLOW HEATER UNIT[F] Equipment Number [id number] BOOM ROOM 6 BOOM ROOM 6 Equipment Setting Outcomes Met? Yes Yes Yes Last Modified By: Gricelda House RN, RN, Emily A Coy RN, Emily A 10/07/19 10:27:41 10/07/19 10:27:41 10/07/19 10:27:41 Entry 4 Entry 5 Entry 6 Equipment Type MISTRAL FORCED AIR MONITOR CHARGE SURGERY SONOSITE ULTRASOUND WARMING SYSTEM UNIT[F] [F] UNIT[F] Equipment Number [id number] Equipment Setting Outcomes Met? Yes Yes Yes Last Modified By: Gricelda House RN, RN, Emily A Coy RN, Emily A 10/07/19 10:27:41 10/07/19 10:27:41 10/07/19 10:27:41 Entry 7 Entry 8 Entry 9 Equipment Type VENA FLOW UNIT[F] DAVINCI EQUIPMENT [F] GLIDESCOPE, INTUBATING[F] Equipment Number Equipment Setting Outcomes Met? Yes Yes Yes Last Modified By: Gricelda House RN, RN, Emily A Coy RN, Emily A 10/07/19 10:27:41 10/07/19 10:27:41 10/07/19 10:39:11 Post-Care Text: The patient is free from signs and symptoms of injury caused by extraneous objects Transport To OR FT Pre-Care Text: Transports according to individual needs. Evaluates for signs and symptoms of skin and tissue injury as a result of transfer or transport Entry 1 Via Cart By Gricelda House RN Safety Precautions Side Rails Up Outcomes Met? Yes Last Modified By: Gricelda House RN 10/07/19 10:27:56 Post-Care Text: The patient is free from signs and symptoms of injury related to transfer/transport Cautery FT Pre-Care Text: Implements protective measures to prevent injury due to electrical sources, and evaluates for signs and symptoms of electrical injury Entry 1 ESU Identification Equipment Number C4 ESU Settings Cut 35 Coag 35 Bipolar 35 ESU Grounding Pad Site Right Thigh Hair Removal Pad No Site Pre Pad Site Clear and Intact Post Pad Site Clear and Intact Condition Condition Grounding Pad Gricelda House RN Placed By Outcomes Met? Yes Last Modified By: Gricelda House RN 10/07/19 10:28:12 Post-Care Text: The patient if free from signs and symptoms of electrical injury Counts Verification FT Pre-Care Text: Performs required counts Entry 1 Entry 2 Procedure(s) HERNIA REPAIR, ROBOT HERNIA REPAIR, ROBOT ASSISTED(.) ASSISTED(.) Type Initial Final Items Instruments, Sponges, Sponges, Sharps, Sharps, Other/See Other/See Comments Comments Status Correct Correct Time 10/07/19 09:35:00 10/07/19 11:26:00 By SATISH Logan RN, Lou Coy RN, Emily A, Ann, Churchill CST, Maurice FARLEY, Ashely Lynch Outcomes Met? Yes Yes Last Modified By: Gricelda House RN, RN, Emily A 10/07/19 10:28:52 10/07/19 11:36:04 Post-Care Text: The patient is free from signs and symptoms of injury caused by extraneous objects General Comments: OTHER ITEM COUNTED: SCISSOR PIECES. Cheryl STRINGER RN Skin Prep FT Pre-Care Text: Performs skin preparations Entry 1 Procedure HERNIA REPAIR, ROBOT Prep Area abdomen ASSISTED(.) Prep Agents Betadine Scrub and Solution Hair Removal Methods Clipper Site DR NILL USED CLIPPERS ON ABDOMEN By Doreen ARIAS, Cheyenne COVARRUBIAS Outcomes Met? Yes Last Modified By: Gricelda House RN 10/07/19 10:29:13 Post-Care Text: The patient is free from signs and symptoms of infection Departure From OR FT Pre-Care Text: Transports according to individual needs. Evaluates for signs and symptoms of skin and tissue injury as a result of transfer or transport. Entry 1 Via Patient Bed Safety Precautions Side Rails Up PostOp Destination PACU Transported By Gricelda House RN Patient Status Stable Skin. Condition Other/See Comments Description ABDOMINAL INCISIONS, OTHER SKIN UNCHANGED FROM PREVIOUSLY Airway Maintenance Oxygen in Use? Yes Airway Device Simple Mask Flow Rate 8 L/min Outcomes Met? Yes Last Modified By: Grcielda House RN 10/07/19 11:47:13 Post-Care Text: The patient is free from signs and symptoms of injury related to transfer/transport General Comments: REPORT GIVEN TO BANQUET STEWARD. Cheryl STRINGER RN Dressing/Packing FT Pre-Care Text: Administers care to wound sites Entry 1 Type Dressing Site and Details SKIN AFFIX to all incisions, 2x2 and opsites to 12mm port sites and 4x4 and medipore tape to umbilical area - and abdominal binder Outcomes Met? Yes Last Modified By: Gricelda House RN 10/07/19 11:37:45 Post-Care Text: The patient is free from signs and symptoms of infection Medication Administration FT Pre-Care Text: Verifies allergies, administers prescribed medications and solutions, administers prescribed antibiotic therapy and immunizing agents as ordered, evaluates response to medications Administers prescribed medications and solutions Entry 1 Route of Admin Field Expiration Date Yes Verified Outcomes Met? Yes Last Modified By: Gricelda House RN 10/07/19 10:30:01 Post-Care Text: The patient received appropriate medication(s) safely administered during the perioperative period For Trevino-Steven please see scanned medication reconcilliation form for medications used at the field during the procedure. Implant Log FT Pre-Care Text: Records devices implanted during the operative or invasive procedure Entry 1 Procedure HERNIA REPAIR, ROBOT Implant/Explant Implant ASSISTED(.) Implant Identification FT Description MESH STEX ROUND 9CM Lot Number [id number] (3.6 ) [SYM9][F] Clear Coat Sprayer FT-Pairy Catalog ?# [id number] [F] Size 9cm Expiration Date 11/05/23 Unique Device [id number] Human Readable {[id number] Identifier (DEE) Barcode {[id number]{10 [id number] Machine Readable [id number] Barcode [id number] Usage Data FT Implant Site Abdomen Implant Site Comment umbilical Quantity 1 Implant/Explant Date 10/07/19 10:46:00 Implanted By Lee HAMPTON MD Biological Implants MR Classification MR Conditional Outcomes Met? Yes Last Modified By: Gricelda House RN 10/07/19 10:46:56 Post-Care Text: The patient is free from signs and symptoms of injury caused by extraneous objects Drains/Tubes FT Pre-Care Text: Administers care to invasive device sites Entry 1 Device Type TUBE NASOGASTIC SUMP Location mouth 18FR [[id number]][F] Quantity 1 Inserted By Sg Thayer Jr, DO Present on Arrival? No Immediate DC? No DC'd at End of Case? Yes DC'd By Sg Thayer Jr, DO Outcomes Met? Yes Last Modified By: Gricelda House RN 10/07/19 11:36:13 Post-Care Text: The patient is free from signs and symptoms of infection Urinary Catheter Pre-Care Text: Patient is prepped using sterile technique. Entry 1 Urinary Catheter TRAY URINE DENIS CATH Present Upon Arrival No Inserted LF 16FR [[id number]][F] Insertion Date/Time 10/07/19 09:58:00 Urine Residual 125 Insertion Site Uretheral Urine CLEAR YELLOW URINE Characteristics Inserted By Gricelda House RN Outcomes Met? Yes Last Modified By: Gricelda House RN 10/07/19 10:31:13 Post-Care Text: The patient is free from signs of trauma. Cultures and Specimens FT Pre-Care Text: Manages specimen handling and disposition Manages culture specimen collection Entry 1 Cultures Ordered Yes Culture Disposition Designated OR Area Culture Source urine from villegas Specimens Ordered No Frozen Section Times Outcomes Met? Yes Last Modified By: Gricelda House RN 10/07/19 10:33:26 Post-Care Text: The patient is free from signs and symptoms of injury caused by extraneous objects The patient is free from signs and symptoms of infection Temperature Control Entry 1 Temperature Control BLANKET MISTRAL AIR Quantity 1 Aid TORSO [[id number]][F] Fluid/Strafford Unit Mistral warming system Setting high/43 Body Site Upper anterior torso Last Modified By: Gricelda House RN 10/07/19 10:32:35 Case Comments Finalized By: Angelica Israel CST Document Signatures Signed By: Gricelda House RN 10/07/19 11:47 Angelica Israel CST 10/08/19 13:40 Normal [facility] History and Physicalon 10-07 History and Physical Patient: PARAS GRIGSBY Age: 53 years Sex: Male : 1965 Associated Diagnoses: None Author: Lee HAMPTON MD Subjective no changes to H & P Normal [facility] Comment on above: Result Comment: Elec tronically Signed By: Lee HAMPTON MD\.br\Date and Time Signed: 10/07/19 09:08 EST Inpatient Patient Summaryon 10-07-2019 Inpatient Patient Summary [facility] Clinical Discharge Instructions PERSON INFORMATION Name: PARAS GRIGSBY PHYSICIANS Admitting Physician: Lee HAMPTON MD Attending Physician: Lee HAMPTON MD PCP: Lambert Jose MD Discharge Diagnosis: Hernia, umbilical Comment: PATIENT EDUCATION INFORMATION Instructions: Post Op Patient Instructions - FT (CUSTOM) Medication Leaflets: Follow up: With: Address: When: Lee ALEXIA Rehan [employer] [place] [address] Business (1) Within 7 to 10 days MEDICATION LIST Fill New Prescriptions: acetaminophen-hydrocodone (acetaminophen-hydrocodone 325 mg-5 mg oral tablet) 1 tab(s) By Mouth every 4 hours as needed for Pain take with food or milk Comment: Adiel [facility] Main OR PACU I Recordon Main OR PACU I Record PACU Phase I Document Type FT Summary Primary Physician: Lee HAMPTON MD Finalized Date/Time: 10/07/19 12:51:42 Pt. Name: PARAS GRIGSBY/Sex: 1965 Male Med Rec #: [id number] Physician: Lee HAMPTON MD Financial #: [id number] Pt. Type: A Room/Bed: 03/06 Admit/Disch: 10/07/19 07:08:33 - Institution: Case Times PACU I FT Pre-Care Text: Identifies barriers to communication and implements measures to provide psychological support Develops individualized plan of care, and ensures continuity of care Maintains patient's dignity and privacy, and maintains patient confidentiality Identifies and reports philosophical, cultural, and spiritual beliefs and values Identifies individual values and wishes concerning care Implements aseptic technique, and administers prescribed antibiotic therapy and immunizing agents as ordered Evaluates postoperative tissue perfusion Implements thermoregulation measures, and monitors body temperature Evaluates postoperative respiratory status Evaluates postoperative cardiac status Evaluates postoperative neurological status Assesses pain control, collaborated in initiating patient-controlled analgesia and implements alternative methods of pain control Verifies allergies, administers prescribed medications and solutions, evaluates response to medications Entry 1 In PACU I 10/07/19 11:45:00 Discharge from PACU 10/07/19 12:45:00 I Outcomes Met? Yes Last Modified By: Jason Chacon RN 10/07/19 12:51:27 Post-Care Text: The patient demonstrates knowledge of the expected response to the operative or invasive procedure The patient's care is consistent with the individualized perioperative plan of care The patient's right to privacy is maintained The patient's value system, lifestyle, ethnicity, and culture are considered, respected, and incorporated into the perioperative plan of care The patient participates in decisions affecting his or her perioperative plan of care The patient is free from signs and symptoms of infection The patient has wound/tissue perfusion consistent with or improved from baseline levels established preoperatively The patient is at or returning to normothermia at the conclusion of the immediate postoperative period The patient's respiratory function is consistent with or improved from baseline levels established preoperatively The patient's cardiovascular status is consistent with or improved from baseline levels established preoperatively The patient's cardiovascular status is consistent with or improved from baseline levels established preoperatively The patient demonstrates and/or reports adequate pain control throughout the perioperative period The patient received appropriate medication(s), safely administered during the perioperative period Acuity Level PACU I FT Entry 1 Start Time 10/07/19 11:45:00 Stop Time 10/07/19 12:45:00 Acuity Level Acuity Level I Last Modified By: Jason Chacon RN 10/07/19 12:51:36 Finalized By: Jason Chacon RN Document Signatures Signed By: Jason Chacon RN 10/07/19 12:51 Normal [facility] Main OR PACU II Recordon Main OR PACU II Record PACU Phase II Document Type FT Summary Primary Physician: Lee HAMPTON MD Finalized Date/Time: 10/07/19 17:37:19 Pt. Name: PARAS GRIGSBY/Sex: 1965 Male Med Rec #: [id number] Physician: Lee HAMPTON MD Financial #: [id number] Pt. Type: A Room/Bed: 03/06 Admit/Disch: 10/07/19 07:08:00 - 10/07/19 15:10:00 Institution: Case Times PACU II FT Pre-Care Text: Identifies barriers to communication and implements measures to provide psychological support and determines knowledge level Develops individualized plan of care, and ensures continuity of care Maintains patient's dignity and privacy, and maintains patient confidentiality Identifies and reports philosophical, cultural, and spiritual beliefs and values Identifies individual values and wishes concerning care administers prescribed antibiotic therapy and immunizing agents as ordered, Evaluates postoperative tissue perfusion Implements thermoregulation measures, and monitors body temperature Evaluates postoperative respiratory status Evaluates postoperative cardiac status Evaluates postoperative neurological status Assesses pain control, collaborated in initiating patient-controlled analgesia and implements alternative methods of pain control Verifies allergies, administers prescribed medications and solutions, evaluates response to medications Entry 1 In PACU II 10/07/19 12:50:00 Discharge from PACU 10/07/19 15:10:00 II Outcomes Met? Yes Last Modified By: Karie Fletcher RN 10/07/19 17:36:38 Post-Care Text: The patient demonstrates knowledge of the expected response to the operative or invasive procedure The patient's care is consistent with the individualized perioperative plan of care The patient's right to privacy is maintained The patient's value system, lifestyle, ethnicity, and culture are considered, respected, and incorporated into the perioperative plan of care The patient participates in decisions affecting his or her perioperative plan of care. The patient is free from signs and symptoms of infection The patient has wound/tissue perfusion consistent with or improved from baseline levels established preoperatively The patient is at or returning to normothermia at the conclusion of the immediate postoperative period The patient's respiratory function is consistent with or improved from baseline levels established preoperatively The patient's cardiovascular status is consistent with or improved from baseline levels established preoperatively The patient's neurological status is consistent with or improved from baseline levels established preoperatively The patient demonstrates and/or reports adequate pain control throughout the perioperative period The patient received appropriate medication(s), safely administered during the perioperative period Finalized By: Karie Fletcher RN Document Signatures Signed By: Karie Fletcher RN 10/07/19 17:37 Normal [facility] Main OR Preoperative Recordo n 10-07-2019 Main OR Preoperative Record PreOp Document Type FT Summary Primary Physician: Lee HAMPTON MD Finalized Date/Time: 10/07/19 10:13:38 Pt. Name: PARAS GRIGSBY/Sex: 1965 Male Med Rec #: [id number] Physician: Lee HAMPTON MD Financial #: [id number] Pt. Type: A Room/Bed: [facility] Admit/Disch: 10/07/19 07:08:33 - Institution: Case Times PreOp FT Pre-Care Text: Verifies consent for planned procedure, identifies individual values and wishes concerning care, includes family members in perioperative teaching Entry 1 Patient Times. In Pre Surgery 10/07/19 07:15:00 Out Pre Surgery 10/07/19 09:30:00 Outcomes Met? Yes Last Modified By: Gricelda House RN 10/07/19 10:13:34 Post-Care Text: The patient participates in decisions affecting his or her perioperative plan of care Finalized By: Gricelda House RN Document Signatures Signed By: Gricelda House RN 10/07/19 10:13 Normal [facility] Operative Reporton 9 Operative Report Date of Surgery: 12/2018 SURGEON: Lee Hampton M.D. PREOPERATIVE DIAGNOSIS: Enlarging umbilical hernia POSTOPERATIVE DIAGNOSIS: Enlarging umbilical hernia OPERATION: Robotic-assisted umbilical herniorrhaphy with 9 cm Symbotex mesh insertion ANESTHESIA: General endotracheal ANESTHESIOLOGIST: Sg Thayer Jr., D.O. ESTIMATED BLOOD LOSS: Less than 5 mL INDICATIONS AND CONSENT: The patient is a 53-year-old male with history of enlarging umbilical hernia as well as prominent diastasis recti. Indications, risks, benefits, alternatives of proceeding with umbilical herniorrhaphy with mesh insertion robotic-assisted were explained extensively to the patient including the risk of bleeding, infection, bowel injury, recurrent hernia, blood clot, pulmonary embolus, heart attack, anesthetic complications, need for further surgery or mesh removal. All of his questions were answered. Informed consent was obtained. PROCEDURE: The patient was brought to the Operating Room and placed in the supine position. General anesthesia was induced. Villegas catheter was inserted using sterile technique. Bilateral TAP block was performed by Dr. Thayer. The patient was then prepped and draped in the usual sterile fashion. A right subcostal port site incision was made with a scalpel blade and carried down through subcutaneous tissue using blunt dissection. The fascia was grasped and incised. 2-0 Vicryl stay sutures were placed on either side of the midline fascia. A Marc trocar was inserted and secured. Abdomen was then insufflated with carbon dioxide to a pressure of 15 mmHg. The scope was then inserted and the abdomen was visualized. A robotic camera port was inserted under direct visualization in the right mid abdomen laterally and an 8.5 mm robotic port was placed in the right lower quadrant also under direct visualization. The patient was placed in a slight Trendelenburg position with the right side up. The robot was docked. A bipolar grasper was placed in the #2 arm and a monopolar scissors in the #1 arm. I then broke scrub and went to the console. The peritoneum and fatty tissue to the right of the defect was incised with monopolar scissors and a flap was then created encompassing the area around the umbilical hernia. The peritoneum and fat was dissected free down across the midline allowing an adequate pocket for the mesh insertion. Hemostasis was achieved with electrocautery. Once this was completed, the grasper and scissors were changed out for two needle drivers. It should be noted that a #1 nonabsorbable V-Loc suture had been placed prior to docking the robot and was secured in the falciform ligament. This was then used to close the defect. The fascia was run from the inferior aspect cephalad and then back inferiorly completely closing the defect. Once this was complete, the scissors were brought in. Suture was cut. The needle was then brought out through the right subcostal Marc trocar under direct visualization. After this was complete, the 9 cm Symbotex mesh was inserted through the right subcostal Marc along with three 2-0 absorbable V-Loc sutures. These were all placed within the falciform ligament and the mesh was unrolled so that the coated side was out. Textured side was up against the abdominal wall. The sutures were then used to secure the mesh circumferentially around the outer edge. Once this was complete, the peritoneum was then reapproximated along with the fatty tissue to totally close the area over the mesh. Scissors were then brought in, exchanged for the #2 needle school bus driver/custodian and sutures were all cut. The needles were then brought out through the right subcostal Marc under direct visualization. The remaining grasper was removed. The robot was undocked. I then scrubbed back into the field. The camera was inserted. The area was examined. It was noted to be intact. Completely covered with the peritoneum and fat. Good hemostasis. All port sites were examined. Upon withdrawal of the ports, there was noted to be good hemostasis. The remainder of the abdomen was unremarkable. Abdomen was deflated. The Marc trocar was removed. The right subcostal Marc port site fascia was closed with a 0 Vicryl [id number]-xy-[id number] suture. All port sites were infiltrated with the remaining Exparel solution. The skin was then closed with interrupted 4-0 subcuticular Monocryl sutures and skin glue. Sterile dressings were applied as well as a pressure dressing on the umbilical area and abdominal binder. The patient tolerated the procedure well. Villegas catheter was removed. He was extubated and sent to the Recovery Room in good condition. Lee Hampton M.D. gls Dictated: 10/07/2019 #[id number] Typed: 10/07/2019 #[id number] cc: Alex Hdz M.D. Normal [facility] Comment on above: Result Comment: Elec tronically Signed By: ALEXIA LEWIS, Lee Whitleybr\Date and Time Signed: 10/07/19 13:50 EST Patient Education - Texton 1 12-08-2018 Patient Education - Text Normal [facility] UA With Cult Reflexon 2018 Bilirubin Ql (U) Negative Normal Negative [facility] Comment on above: Performed By: #### 2 491827, 6922239, 9038264, 40766014, 1743630, 5306250 #### [facility] [address] [place] [address] Clarity (U) CLEAR Normal Clear [facility] Comment on above: Performed By: #### 2 605127, 9271319, 3562034, 79183138, 4840200, 2858542 #### [facility] [address] [place] [address] Color (U) YELLOW Normal Yellow [facility] Comment on above: Performed By: #### 2 935153, 3128377, 8783213, 64370467, 3132618, 3228772 #### [facility] [address] [place] [address] Epithelial cells.squamous LM.HPF (Urine sed) [#/Area] 0-2 Normal 0-2 [facility] Comment on above: Performed By: #### 2 072870, 6752878, 5670706, 82326396, 1938689, 9133468 #### [facility] [address] [place] [address] Glucose Test strip (U) [Mass/Vol] Negative Normal Negative [facility] Comment on above: Performed By: #### 2 072706, 7877856, 6988419, 46721656, 6859988, 0510645 #### [facility] [address] [place] [address] Hemoglobin Ql (U) Negative Normal Negative [facility] Comment on above: Performed By: #### 2 572491, 2984068, 5943157, 13188264, 6869880, 2258079 #### [facility] [address] [place] [address] Ketones (U) [Mass/Vol] Negative Normal Negative [facility] Comment on above: Performed By: #### 2 342325, 4960188, 4069794, 45437511, 5180745, 0048003 #### [facility] [address] [place] [address] Hobbs.plasma/Lith ium.RBC (Bld) [Mass ratio] 0-3 Normal 0-3 [facility] Comment on above: Performed By: #### 2 179540, 9836512, 0704175, 47935950, 2747032, 6128803 #### [facility] [address] [place] [address] Nitrite Ql (U) Negative Normal Negative [facility] Comment on above: Performed By: #### 2 590643, 4236527, 2246121, 65813547, 7755573, 7422634 #### [facility] [address] [place] [address] pH (U) 5.5 [pH] 5.0-9.0 [facility] Comment on above: Performed By: #### 2 839384, 4604186, 3811104, 09848826, 9329930, 5207851 #### [facility] [address] [place] [address] Protein (U) [Mass/Vol] Negative Normal Negative [facility] Comment on above: Performed By: #### 2 068297, 9757479, 2927562, 21994576, 8395268, 9981878 #### [facility] [address] [place] [address] Specific gravity (U) [Rel density] >=1.030 1.005-1.030 [facility] Comment on above: Performed By: #### 2 078333, 0870715, 7026714, 53848820, 9019017, 6495630 #### [facility] [address] [place] [address] UA Spec Desc Villegas Normal [facility] Comment on above: Performed By: #### 2 745339, 6529152, 1753156, 56920058, 4252249, 2820447 #### [facility] [address] [place], [place] [address] Urobilinogen Qn (U) 0.2 {Nayeli'U}/dL Normal 0.0-1.0 [facility] Comment on above: Performed By: #### 2 073270, 3900007, 4146925, 89050118, 4898970, 6938245 #### [facility] [address] [place] [address] WBC Auto Ql (U) Negative Normal Negative [facility] Comment on above: Performed By: #### 2 446060, 7387155, 1095139, 90857382, 4931960, 1404182 #### [facility] [address] [place], [place] [address] WBC LM.HPF (Urine sed) [#/Area] 0-5 Normal 0-5 [facility] Comment on above: Performed By: #### 2 598652, 0254464, 7262753, 20241623, 5789003, 9651244 #### [facility] [address] [place], [place] [address] Coding Summary.on 10-01-2019 Coding Summary. CODING DATE: 019 FINAL [facility] STATUS: Home (Routine DC) PAYOR: [facility] DESCRIPTION 5521 Level 1 Imaging without Contrast ADMIT DX: REASON FOR VISIT DX: Z01.818 Encounter for other preprocedural examination FINAL DX: PRINCIPAL: Z01.818 Encounter for other preprocedural examination SECONDARY: PYMT PROC APC STAT DESCRIPTION DOCTOR NAME DATE NOTE: The code number assigned matches the documented diagnosis and / or procedure in the patient's chart. However, the narrative phrase printed from the coding software may appear abbreviated, or result in slightly different terminology. Coded By: Tana Salter CphT Date Saved: 10/01/2019 06:34 am Normal [facility] XR Chest 2 Viewson 9 XR Chest 2 Views Exam Date/Time: 09/30/2019 11:12 EST Reason for Exam: Pre Op Report IMPRESSION: NO ACTIVE DISEASE REASON FOR EXAM: Pre Op COMPARISONS: None available. FINDINGS: 2 views of the chest reveal no active cardiopulmonary disease. Metallic densities consistent with punctate foreign bodies overlies the superficial soft tissues of the right hemithorax. FINAL REPORT Dictated: 10/01/2019 11:31 am Akira Shrestha MD Signed (Electronic Signature): 10/01/2019 11:31 am Signed by: Akira Shrestha MD Transcribed by: ANKITA Technologist: RH Normal [facility] BUNon 09-30-2019 Urea nitrogen [Mass/Vol] 15 mg/dL Normal 5-21 [facility] Comment on above: Performed By: #### 2 163874, 9609390, 2540040, 59015152, 6829315, 8090717 #### [facility] [address] [place] [address] CBC w/Indiceson 09-30-2019 Erythrocyte distribution width (RBC) [Ratio] 13.2 % Normal 10.9-14.2 [facility] Comment on above: Performed By: #### 2 224323, 5691249, 7807448, 52522938, 6180335, 2855490 #### [facility] [address] [place] [address] Hematocrit (Bld) [Volume fraction] 42.9 % Normal 37.7-49.0 [facility] Comment on above: Performed By: #### 2 916971, 2820237, 3056087, 39041964, 9654605, 0931826 #### [facility] [address] [place] [address] Hemoglobin (Bld) [Mass/Vol] 14.7 g/dL Normal 13.5-17.5 [facility] Comment on above: Performed By: #### 2 647860, 5881918, 0864148, 26250785, 4530090, 8133137 #### [facility] [address] [place] [address] 43314 MCH (RBC) [Entitic mass] 31.4 pg Normal 27.0-34.0 [facility] Comment on above: Performed By: #### 2 279992, 9336166, 5228753, 50472149, 8425820, 8088148 #### [facility] [address] [place] [address]46 MCHC (RBC) [Mass/Vol] 34.2 g/dL Normal 31.4-36.0 [facility] Comment on above: Performed By: #### 2 527222, 5425434, 3176203, 81538612, 4006592, 0235812 #### [facility] [address] [place] [address] 38394 MCV (RBC) [Entitic vol] 91.9 fL Normal 80.0-100.0 [facility] Comment on above: Performed By: #### 2 283629, 9275462, 7858888, 03074955, 9402288, 9216701 #### [facility] [address] [place] [address] Platelet mean volume (Bld) [Entitic vol] 9.0 fL Normal 6.4-10.8 [facility] Comment on above: Performed By: #### 2 044330, 1880430, 9289994, 22018759, 3904473, 3717056 #### [facility] [address] [place] [address] Platelets (Bld) [#/Vol] 230.0 E9/L Normal 150.0-500.0 [facility] Comment on above: Performed By: #### 2 596513, 9795474, 9568536, 75963478, 8008279, 5733389 #### [facility] [address] [place] [address] RBC (Bld) [#/Vol] 4.7 E12/L Normal 4.3-5.9 [facility] Comment on above: Performed By: #### 2 519310, 8054954, 6663619, 70287286, 4147140, 6249405 #### [facility] [address] [place] [address] WBC corrected for nucl RBC Auto (Bld) [#/Vol] 5.7 E9/L Normal 4.0-11.0 [facility] Comment on above: Performed By: #### 2 379391, 3343783, 2562496, 89648960, 7021908, 5545269 #### [facility] [address] [place] [address] Creatinineon 09-30-2019 Creatinine [Mass/Vol] 0.8 mg/dL Normal 0.5-1.3 [facility] Comment on above: Performed By: #### 2 537287, 1684056, 7405172, 53023484, 0097280, 1870429 #### [facility] [address] [place] [address] Glucoseon 09-30-2019 Glucose [Mass/Vol] 91 mg/dL Normal 55-199 [facility] Comment on above: Performed By: #### 2 136266, 1013898, 4312134, 81346155, 2606290, 2094550 #### [facility] [address] [place] [address] Lyteson 09-30-2019 Anion gap [Moles/Vol] 13 mmol/L Normal 6-16 [facility] Comment on above: Performed By: #### 2 106476, 4900575, 0199387, 91503947, 0236297, 2642343 #### [facility] [address] [place] [address] Chloride [Moles/Vol] 109 mmol/L Normal 101-111 [facility] Comment on above: Performed By: #### 2 072242, 0104340, 1241996, 73039830, 0741144, 5417396 #### [facility] [address] [place] [address] CO2 [Moles/Vol] 22 mmol/L Normal 21-31 [facility] Comment on above: Performed By: #### 2 451530, 6925528, 1679626, 75842884, 2908388, 5155789 #### [facility] [address] [place] [address] Potassium [Moles/Vol] 4.0 mmol/L Normal 3.5-5.3 [facility] Comment on above: Performed By: #### 2 155393, 5746274, 2769617, 88253400, 3614829, 2498323 #### [facility] [address] [place] [address] Sodium [Moles/Vol] 140 mmol/L Normal 135-145 [facility] Comment on above: Performed By: #### 2 152069, 1043388, 9215016, 95837560, 9760573, 0869020 #### [facility] [address] [place] [address] eGFRon 09-30-2019 GFR/1.73 sq M predicted among blacks MDRD (S/P/Bld) [Vol rate/Area] mL/min/{1.73_m2} Normal >=59 [facility] Comment on above: Order Comment: Order added by Discern Expert. Result Comment: eGFR is race adjusted. AA=. Performed By: #### 2 930352, 3908937, 4246323, 50516871, 0525015, 0648959 #### [facility] [address] [place] [address] GFR/1.73 sq M predicted among non-blacks MDRD (S/P/Bld) [Vol rate/Area] mL/min/{1.73_m2} Normal >=59 [facility] Comment on above: Order Comment: Order added by Discern Expert. Result Comment: Bar Waiter/Waitress amy kidney disease could be indicated at eGFR's of less than 60 mL/min/1.73m2. Kidney failure is indicated at less than 15 mL/min/1.73m2. Performed By: #### 2 642371, 9444260, 8205612, 42731530, 6910413, 7655580 #### [facility] [address] [place] [address] Vital Signs Date Time Vital Sign Value Performing Clinician Facility 02-23-2023 16:25-0400 Body height 170.18 cm Yasmine Joaquin Other [facility] Other 02-23-2023 16:25-0400 Body mass index (BMI) [Ratio] 40.72 kg/m2 Yasmine Joaquin Other [facility] Other 02-23-2023 16:25-0400 Body temperature 98.8 [degF] Yasmine Joaquin Other [facility] Other 02-23-2023 16:25-0400 Body weight 117.94 kg Yasmine Joaquin Other [facility] Other 02-23-2023 16:25-0400 Diastolic blood pressure 70 mm[Hg] Yasmine Joaquin Other [facility] Other 02-23-2023 16:25-0400 Respiratory rate 18 /min Yasmine Joaquin Other [facility] Other 02-23-2023 16:25-0400 SaO2% (BldA) [Mass fraction] 97 % Yasmine Joaquin Other [facility] Other 02-23-2023 16:25-0400 Systolic blood pressure 131 mm[Hg] Yasmine Joaquin Other [facility] Other 02-17-2023 10:10-0400 Body height 170.18 cm Emma Guerrero Other [facility] Other 02-17-2023 10:10-0400 Body mass index (BMI) [Ratio] 40.72 kg/m2 Emma Guerrero Other [facility] Other 02-17-2023 10:10-0400 Body temperature 97.7 [degF] Emma Guerrero Other [facility] Other 02-17-2023 10:10-0400 Body weight 117.94 kg Emma Guerrero Other [facility] Other 02-17-2023 10:10-0400 Respiratory rate 18 /min Emma Guerrero Other [facility] Other 02-17-2023 10:10-0400 SaO2% (BldA) [Mass fraction] 94 % Emma Guerrero Other [facility] Other 02-15-2022 18:45-0400 Body height 170.18 cm Dimple Milligan Other [facility] Other 02-15-2022 18:45-0400 Body mass index (BMI) [Ratio] 39.46 kg/m2 Dimple Milligan Other [facility] Other 02-15-2022 18:45-0400 Body temperature 98.2 [degF] Dimple Milligan Other [facility] Other 02-15-2022 18:45-0400 Body weight 114.31 kg Dimple Milligan Other [facility] Other 02-15-2022 18:45-0400 Diastolic blood pressure 93 mm[Hg] Dimple Milligan Other [facility] Other 02-15-2022 18:45-0400 Respiratory rate 18 /min Dimple Milligan Other [facility] Other 02-15-2022 18:45-0400 SaO2% (BldA) [Mass fraction] 96 % Dimple Milligan Other [facility] Other 02-15-2022 18:45-0400 Systolic blood pressure 158 mm[Hg] Dimple Milligan Other [facility] Other Encounters Encounter Date Encounter Type Care Provider Facility Start: 03-28-2024 End: 03-28-2024 ambulatory DEBORA E RAMBASEK Not Available Start: 02-21-2024 End: 02-21-2024 ambulatory [facility] Start: 02-14-2024 End: 02-14-2024 ambulatory ANDRE PRESCOTT Not Available Start: 11-27-2023 End: 11-27-2023 ambulatory [facility] Start: 11-23-2023 End: 11-23-2023 ambulatory DEBORA E RAMBASEK Not Available Start: 10-09-2023 End: 10-10-2023 ambulatory DEBORA E RAMBASEK Not Available Start: 09-27-2023 End: 09-27-2023 ambulatory DEBORA E RAMBASEK Not Available Start: 05-29-2023 End: 05-29-2023 ambulatory CECI [facility] Start: 03-15-2023 End: 03-16-2023 ambulatory MARYURI HADDAD Facility:[facility]1 Start: 02-25-2023 End: 02-25-2023 ambulatory ANABELLE JASEN . Facility:[facility] Start: 02-23-2023 End: 02-23-2023 ambulatory Yasmine Joaquin Other [facility] Other Start: 02-23-2023 Office outpatient vi sit 15 minutes Yasmine Joaquin [facility] Start: 02-17-2023 End: 02-17-2023 ambulatory Emma Guerrero Other [facility] Other Start: 02-17-2023 Office outpatient vi sit 15 minutes Emmakelsea Guerrero [facility] Start: 01-28-2023 Encounter for genera l adult medical examination without abnormal findings DR LAMBERT JOSE . [facility] Start: 01-21-2023 End: 01-22-[address] LAMBERT JOSE . Facility:[facility]1 Start: 01-21-2023 End: 01-22-2023 Encounter for general adult medical examination without abnormal findings DR LAMBERT JOSE . Facility:[facility] Start: 12-26-2022 End: 12-27-2022 ambulatory MARYURI HADDAD Facility:[facility] Start: 10-01-2022 End: 10-02-[address] INES SERNA Facility:[facility] Start: 09-02-2022 End: 10-12-[address] INES SERNA Facility:[facility]1 Start: 07-27-2022 End: 07-28-2022 ambulatory MARYURI HADDAD Facility:[facility] Start: 06-30-2022 End: 07-01-2022 ambulatory MARYURI HADDAD Facility:[facility] Start: 06-30-2022 End: 07-01-2022 ambulatory BRANDAN HOWARD Facility:[facility] Start: 05-30-2022 End: 05-31-[address] LAMBERT JOSE . Facility:[facility] Start: 04-18-2022 End: 04-19-[address] LAMBERT JOSE . Facility:[facility] Start: 04-09-2022 End: 04-10-[address] LAMBERT JOSE . Facility:[facility] Start: 03-24-2022 End: 03-25-[address] LAMBERT JOSE . Facility:[facility] Start: 02-15-2022 End: 02-15-2022 ambulatory Dimple Milligan Other [facility] Other Start: 02-15-2022 Office outpatient vi sit 15 minutes Dimple Milligan [facility] Procedures Date Procedure Procedure Detail Performing Clinician Start: 01-21-2023 PSA screening MARYURI CHAMPION MSA Comment on above: Performed By: #### P [facility] #### [facility] [address] [place] [address] Dr. Navneet Godwin Payers Date Payer Category Payer Unknown [id number] 2.16.84 [id number] 1965 Unknown [id number] 2.16.84 [id number] 1965 Unknown [id number] 2.16.84 0.1.414241.3.579.2.593 1965 Unknown [id number] 2.16.84 0.1.742977.3.579.2.593 1965 Unknown [id number] 2.16.84 0.1.945187.3.579.2.593 1965 Unknown [id number] 2.16.84 0.1.350217.3.579.2.593 1965 Unknown [id number] 2.16.84 0.1.467229.3.579.2.593 1965 Unknown [id number] 2.16.84 0.1.013503.3.579.2.593 1965 Unknown [id number] 2.16.84 0.1.667137.3.579.2.593 1965 Unknown [id number] 2.16.84 0.1.875218.3.579.2.593 1965 Unknown [id number] 2.16.84 0.1.695378.3.579.2.593 1965 Unknown [id number] 2.16.84 0.1.288988.3.579.2.593 1965 Unknown [id number] 2.16.84 0.1.771475.3.579.2.593 1965 Unknown [id number] 2.16.84 0.1.924448.3.579.2.1259 1965 Unknown [id number] 2.16.84 0.1.770325.3.579.2.1259 1965 Unknown [id number] 2.16.84 0.1.443345.3.579.2.1259 1965 Unknown [id number] 2.16.840 .1.763133.3.579.2.1259 1965 Unknown [id number] 2.16.840 .1.611401.3.579.2.1259 1959 Unknown [id number] 2. [id number] Social History Date Type Detail Facility Sex Assigned At [facility] Other Progress note 02-21-2024 Note Date & Type Note Facility 02-21-2024 Note [facility] Note Chief Complaint: Patient here for 3 mo follow up hypertension, CAD s/p PCI, and hyperlipidemia. Chlorthalidone was added at last visit in Nov 2023. BP readings from home look good. He still denies chest pain and palpitations. Says his VILLAVICENCIO is improving. HPI: Paras Grigsby is a 58 y.o. year old male patient with coronary artery disease status post left circumflex PCI in 2021 and hypertension seen in follow-up. No anginal chest pain, no worsening shortness of breath Notably, he has severe pain in the right elbow, right shoulder, and cervical disc. He is on long-term diclofenac orally He has apparently seen rheumatology in the past without much improvement UPDATE 02/21/2024 Doing well; blood pressure readings from home are markedly improved in the 110s to 130 mmHg systolic range Has no new cardiovascular complaints Started on a new medication for asthma/emphysema Cardiology ROS: Review of Systems Cardiovascular: Positive for dyspnea on exertion (improving). Respiratory: Positive for cough and wheezing. Musculoskeletal: Positive for arthritis, back pain, joint pain and myalgias. Neurological: Positive for light-headedness. All other systems reviewed and are negative. Past Medical History He has a past medical history of COPD (chronic obstructive pulmonary disease) ([facility]), Coronary artery disease, Hyperlipidemia, Hypertension, and Sleep apnea. Surgical History He has a past surgical history that includes Cardiac catheterization (Left, 05/15/2014) and Cardiac catheterization. Social History He reports that he quit smoking about 12 years ago. His smoking use included cigarettes. He has a 30.00 pack-year smoking history. He quit smokeless tobacco use about 22 years ago. He reports that he does not currently use alcohol. He reports that he does not use drugs. Family History Family History Problem Relation Name Age of Onset Heart failure Father Coronary artery disease Father Allergies Patient has no known allergies. Medications Current Outpatient Medications: aspirin 81 mg chewable tablet, CHEW AND SWALLOW 1 TABLET IN THE MORNING, Disp: 90 tablet, Rfl: 3 atorvastatin (Lipitor) 80 mg tablet, TAKE 1 TABLET AT BEDTIME, Disp: 90 tablet, Rfl: 3 carvedilol (Coreg) 25 mg tablet, Take by mouth with breakfast and with evening meal., Disp: , Rfl: chlorthalidone (Hygroton) 25 mg tablet, Take 1 tablet (25 mg) by mouth in the morning., Disp: 90 tablet, Rfl: 3 clopidogrel (Plavix) 75 mg tablet, TAKE 1 TABLET IN THE MORNING, Disp: 90 tablet, Rfl: 3 diclofenac (Voltaren) 50 mg EC tablet, Take 50 mg by mouth twice a day., Disp: , Rfl: doxazosin (Cardura) 4 mg tablet, Take 4 mg by mouth at bedtime., Disp: , Rfl: fenofibrate (Tricor) 145 mg tablet, Take 145 mg by mouth in the morning., Disp: , Rfl: furosemide (Lasix) 20 mg tablet, TAKE ONE-HALF (1/2) TABLET DAILY, Disp: 45 tablet, Rfl: 3 lisinopril 10 mg tablet, TAKE 1 TABLET IN THE MORNING, Disp: 90 tablet, Rfl: 3 lisinopril 20 mg tablet, Take 1 tablet (20 mg) by mouth in the morning., Disp: 90 tablet, Rfl: 3 Last Recorded Vitals BP 114/70 (BP Location: Right arm, Patient Position: Sitting) Pulse 77 Ht 1.702 m (5' 7 ) Wt 115 kg (253 lb) SpO2 96% BMI 39.63 kg/m??? Physical Examination: GENERAL: alert and oriented x3, well developed, in no acute distress. HEAD: atraumatic, normocephalic. EYES: JACKIE, EOMI. NECK: trachea midline, no JVD present, no carotid bruits present. CARDIAC: S1, S2 present. RRR. No murmur, rubs, or gallops. RESPIRATORY: CTAB, no increased effort of breathing, no rales, rhonchi, or wheezing. ABDOMEN: soft, nontender, nondistended. EXTREMITIES: no lower extremity edema, peripheral pulses are 2+ bilaterally. No rash/skin discoloration present. NEURO: strength/sensation equal and symmetric in bilateral upper and lower extremities. PSYCH: appropriate mood, affect, and judgement. Investigations: Recent Labs 01/21/2023 WBC 5.3, hemoglobin 12.7, hematocrit 37.6, platelets 236 Sodium 143, potassium 3.7, chloride 109, BUN 18, serum creatinine 1.12, estimated GFR greater than 60% Total cholesterol 96, HDL 45, triglyceride 69, LDL 37.2 Labs from 12/27/2021 BUN 14, creatinine 0.97 Liver function normal TSH 1.473 normal CBC normal 10/02/2021 cholesterol 155, HDL 48, triglyceride 167 and LDL 73.6 currently well controlled Imaging and other tests Cardiac catheterization 08/03/2022 Final impressions: 1. Severe stenosis of the left circumflex coronary artery successfully treated by balloon angioplasty and Synergy drug-eluting stent placement 2. Mild disease of the left anterior descending with superimposed myocardial bridge 3. Mild disease of the right coronary artery 4. Normal global left ventricular systolic function by noninvasive imaging 5. Normal right-sided heart pressures and wedge pressure 6. Normal cardiac output/cardi (more content not included)... [facility] Progress note 11-27-2023 Note Date & Type Note Facility 11-27-2023 Note [facility] Cardiology Clinic Note Chief Complaint: Patient here for 6 mo follow up CAD, hypertension, and hyperlipidemia. BP log in Jun 2023 continued to show elevated BP so Ceci Lee CNP doubled lisinorpil. BMP was done shortly after. Denies chest pain but has chest soreness , and sometimes sore to the touch. Does see pulmonology with [facility] and had PFT's last month. BP still running mostly between high 130's-high 140's systolic. HPI: Paras Grigsby is a 57 y.o. year old male patient with coronary artery disease status post left circumflex PCI in 2021 and hypertension seen in follow-up. No anginal chest pain, no worsening shortness of breath Notably, he has severe pain in the right elbow, right shoulder, and cervical disc. He is on long-term diclofenac orally He has apparently seen rheumatology in the past without much improvement Cardiology ROS: Review of Systems Cardiovascular: Positive for dyspnea on exertion. Respiratory: Positive for cough and wheezing. Musculoskeletal: Positive for arthritis, back pain, joint pain and myalgias. All other systems reviewed and are negative. Past Medical History He has a past medical history of COPD (chronic obstructive pulmonary disease) ([facility]), Coronary artery disease, Hyperlipidemia, Hypertension, and Sleep apnea. Surgical History He has a past surgical history that includes Cardiac catheterization (Left, 05/15/2014) and Cardiac catheterization. Social History He reports that he quit smoking about 12 years ago. His smoking use included cigarettes. He has a 30.00 pack-year smoking history. He quit smokeless tobacco use about 22 years ago. He reports that he does not currently use alcohol. He reports that he does not use drugs. Family History Family History Problem Relation Name Age of Onset Heart failure Father Coronary artery disease Father Allergies Patient has no known allergies. Medications Current Outpatient Medications: aspirin 81 mg chewable tablet, CHEW AND SWALLOW 1 TABLET IN THE MORNING, Disp: 90 tablet, Rfl: 3 atorvastatin (Lipitor) 80 mg tablet, TAKE 1 TABLET AT BEDTIME, Disp: 90 tablet, Rfl: 3 carvedilol (Coreg) 25 mg tablet, Take by mouth with breakfast and with evening meal., Disp: , Rfl: clopidogrel (Plavix) 75 mg tablet, TAKE 1 TABLET IN THE MORNING, Disp: 90 tablet, Rfl: 3 doxazosin (Cardura) 4 mg tablet, Take 4 mg by mouth at bedtime., Disp: , Rfl: fenofibrate (Tricor) 145 mg tablet, Take 145 mg by mouth in the morning., Disp: , Rfl: furosemide (Lasix) 20 mg tablet, Take 1/2 tab daily, Disp: 45 tablet, Rfl: 3 lisinopril 10 mg tablet, TAKE 1 TABLET IN THE MORNING, Disp: 90 tablet, Rfl: 3 lisinopril 20 mg tablet, Take 1 tablet (20 mg) by mouth in the morning., Disp: 90 tablet, Rfl: 3 Last Recorded Vitals BP 138/78 (BP Location: Left arm, Patient Position: Sitting) Pulse 59 Ht 1.702 m (5' 7 ) Wt 119 kg (262 lb) SpO2 96% BMI 41.04 kg/m??? Physical Examination: GENERAL: alert and oriented x3, well developed, in no acute distress. HEAD: atraumatic, normocephalic. EYES: JACKIE, EOMI. NECK: trachea midline, no JVD present, no carotid bruits present. CARDIAC: S1, S2 present. RRR. No murmur, rubs, or gallops. RESPIRATORY: CTAB, no increased effort of breathing, no rales, rhonchi, or wheezing. ABDOMEN: soft, nontender, nondistended. EXTREMITIES: no lower extremity edema, peripheral pulses are 2+ bilaterally. No rash/skin discoloration present. NEURO: strength/sensation equal and symmetric in bilateral upper and lower extremities. PSYCH: appropriate mood, affect, and judgement. Investigations: Recent Labs 01/21/2023 WBC 5.3, hemoglobin 12.7, hematocrit 37.6, platelets 236 Sodium 143, potassium 3.7, chloride 109, BUN 18, serum creatinine 1.12, estimated GFR greater than 60% Total cholesterol 96, HDL 45, triglyceride 69, LDL 37.2 Labs from 12/27/2021 BUN 14, creatinine 0.97 Liver function normal TSH 1.473 normal CBC normal 10/02/2021 cholesterol 155, HDL 48, triglyceride 167 and LDL 73.6 currently well controlled Imaging and other tests Cardiac catheterization 08/03/2022 Final impressions: 1. Severe stenosis of the left circumflex coronary artery successfully treated by balloon angioplasty and Synergy drug-eluting stent placement 2. Mild disease of the left anterior descending with superimposed myocardial bridge 3. Mild disease of the right coronary artery 4. Normal global left ventricular systolic function by noninvasive imaging 5. Normal right-sided heart pressures and wedge pressure 6. Normal cardiac output/cardiac index Recommendations: 1. Aspirin 81 mg lifelong 2. Plavix 75 mg daily for minimum of 6 months preferably long-term 3. Aggressive cardiovascular risk factor modification 4. Optimal medical therapy for coronary artery disease should include dual antiplatelet therapy, high intensity statin therapy, beta-zohaib plus or min (more content not included)... [facility] Progress note 05-29-2023 Note Date & Type Note Facility 05-29-2023 Note Cardiology Clinic No te Subjective Paras Grigsby is a 57 y.o. year old male patient with coronary artery disease status post left circumflex PCI in 2021 and hypertension seen in follow-up. seen for No chief complaint on file. Patient Active Problem List Diagnosis Chest pain CAD in [place] artery Essential hypertension COPD (chronic obstructive pulmonary disease) ([facility]) S/P drug eluting coronary stent placement Hyperplastic polyp of intestine Dyspnea Shortness of breath Family History Problem Relation Name Age of Onset Heart failure Father Coronary artery disease Father Social History Tobacco Use Smoking status: Former Packs/day: 1.00 Years: 30.00 Pack years: 30.00 Types: Cigarettes Quit date: 2011 Years since quittin.5 Smokeless tobacco: Former Quit date: 2001 Substance Use Topics Alcohol use: Not Currently Drug use: Never PI Paras Grigsby is a 57 y.o. year old male Past medical history of coronary artery disease status post left circumflex PCI (08/03/2022), mild LAD stenosis with superimposed myocardial bridging, hypertension, former tobacco use, and COPD. 11/15/2022 He continues to have VILLAVICENCIO and fatigue. He has seen pulmonary, he's tried a few inhalers without improvement. Bp at home running 120-130s/60-70s. He denies any c/o chest pain, dyspnea at rest, orthopnea, PND, LE edema, dizziness/LH, palpitations. Update: 05/29/2023 Stable dyspnea on exertion Does not monitor BP at home routinely No chest pain, palpitation, or lower extremity edema Review of Systems Cardiovascular: Positive for dyspnea on exertion and syncope. Negative for chest pain, irregular heartbeat, leg swelling, near-syncope, orthopnea, palpitations and paroxysmal nocturnal dyspnea. Objective Visit Vitals BP 152/81 (BP Location: Left arm, Patient Position: Sitting) Pulse 66 Ht 1.702 m (5' 7 ) Wt 116 kg (256 lb) SpO2 96% BMI 40.10 kg/m??? Smoking Status Former BSA 2.34 m??? Physical Exam General: Awake, alert, NAD Pulm: Breath sounds clear to ascultation bilaterally with no wheeze, crackles or rhonchi Cards: Regular rate and rhythm, S1, S2. No S3 or S4 gallop. Murmur: none Extr: Lower extremity edema: None. Skin: warm, dry, well perfused Neuro: A&Ox3, No gross deficits Allergies No Known Allergies Medications Current Outpatient Medications: aspirin 81 mg chewable tablet, , Disp: , Rfl: atorvastatin (Lipitor) 80 mg tablet, Take 1 tablet (80 mg) by mouth at bedtime for 98 doses., Disp: 90 tablet, Rfl: 3 carvedilol (Coreg) 25 mg tablet, Take by mouth with breakfast and with evening meal., Disp: , Rfl: clopidogrel (Plavix) 75 mg tablet, , Disp: , Rfl: doxazosin (Cardura) 4 mg tablet, Take 4 mg by mouth at bedtime., Disp: , Rfl: fenofibrate (Tricor) 145 mg tablet, Take 145 mg by mouth in the morning., Disp: , Rfl: furosemide (Lasix) 20 mg tablet, Take 1/2 tab daily, Disp: 45 tablet, Rfl: 3 lisinopril 10 mg tablet, Take 1 tablet (10 mg) by mouth in the morning., Disp: 90 tablet, Rfl: 3 Recent Labs 01/21/2023 WBC 5.3, hemoglobin 12.7, hematocrit 37.6, platelets 236 Sodium 143, potassium 3.7, chloride 109, BUN 18, serum creatinine 1.12, estimated GFR greater than 60% Total cholesterol 96, HDL 45, triglyceride 69, LDL 37.2 Labs from 12/27/2021 BUN 14, creatinine 0.97 Liver function normal TSH 1.473 normal CBC normal 10/02/2021 cholesterol 155, HDL 48, triglyceride 167 and LDL 73.6 currently well controlled Imaging and other tests Cardiac catheterization 08/03/2022 Final impressions: 1. Severe stenosis of the left circumflex coronary artery successfully treated by balloon angioplasty and Synergy drug-eluting stent placement 2. Mild disease of the left anterior descending with superimposed myocardial bridge 3. Mild disease of the right coronary artery 4. Normal global left ventricular systolic function by noninvasive imaging 5. Normal right-sided heart pressures and wedge pressure 6. Normal cardiac output/cardiac index Recommendations: 1. Aspirin 81 mg lifelong 2. Plavix 75 mg daily for minimum of 6 months preferably long-term 3. Aggressive cardiovascular risk factor modification 4. Optimal medical therapy for coronary artery disease should include dual antiplatelet therapy, high intensity statin therapy, beta-zohaib plus or minus an angiotensin-converting enzyme inhibitor 5. Follow-up with Dr. Serna in the [facility] in the next 2 to 4 weeks 6. Follow-up with his family physician as scheduled Findings: Hemodynamics: RA mean of 13 PCWP mean of 10 PA 32/0] 16 RV 32/4] 6 Cardiac output 6.0/cardiac index 2.72 AO 125/71] 92 AO sat 96%/PA sat 69% Cardiolite stress test: 01/14/2022 no acute or reversible ischemia Diaphragm attenuation artifact versus mild fixed ischemia of the inferior wall Mild left ventriculomegaly Normal wall motion and ejection fraction 61% Echo: 04/18/2022 LV syst (more content not included)... [facility] Progress note 05-29-2023 Note Date & Type Note Facility 05-29-2023 Note Patient here for 6 m o follow up CAD, hypertension, and dyslipidemia. He had routine labs in January 2023. Denies chest pain. Says his VILLAVICENCIO remains unchanged. Review of Systems Cardiovascular: Positive for dyspnea on exertion. Respiratory: Positive for cough and wheezing. Musculoskeletal: Positive for arthritis, back pain, joint pain and myalgias. All other systems reviewed and are negative. [facility] Evaluation note 02-23-2023 Note Date & Type Note Facility 02-23-2023 Evaluation note Encounter Date Diagnosis Assessment Notes Feb, Urticaria (ICD-10 - L50.9) Discussed diagnosis with patient. We will send in Rx of prednisone taper to use as directed. Continue tido-kjf-wgyeefh Benadryl/Zyrtec or Claritin. Advised patient to avoid hot showers/baths encouraged use of cool compresses. Patient needs to follow-up with PCP if this rash does not improve with treatment. Immediate evaluation in ER for signs and symptoms as discussed. Patient verbalizes understanding and is agreeable to treatment plan. [facility] Other Evaluation note 02-17-2023 Note Date & Type Note Facility 02-17-2023 Evaluation note Encounter Date Diagnosis Assessment Notes Feb, Urticaria (ICD-10 - L50.9) Hives home care material was printed Drink plenty fluids, get plenty of rest. Take the prednisone and Pepcid as prescribed, you may stop the Pepcid after 7 days. Take Zyrtec every morning and Benadryl every night until the symptoms are gone. Follow-up with your family physician if no improvement in the rash or no improvement in your cough in 2 to 3 days. Go to the ER for worsening symptoms or concerns Feb, Acute cough (ICD-10 - R05.1) [facility] Other Evaluation note 02-15-2022 Note Date & Type Note Facility 02-15-2022 Evaluation note Encounter Date Diagnosis Assessment Notes Feb, Infected tooth (ICD-10 - K04.7) Take medications as directed.Highly encourage patient to contact dentist TIARA for further treatment of infection. Do not take OTC medications like ibuprofen with prescriptions [facility] Other History general Narrative - Reported Note Date & Type Note Facility History general Narrative - Reported Type Medical History Benign essential HTN Surgical History knee surgery Surgical History shoulder surgery Surgical History tonsillectomy and adenoidectomy Surgical History wisdom teeth Surgical History vasectomy Hospitalization History see above [facility] Other History general Narrative - Reported Note Date & Type Note Facility History general Narrative - Reported Type Medical History Benign essential HTN Medical History High cholesterol Surgical History knee surgery Surgical History shoulder surgery Surgical History tonsillectomy and adenoidectomy Surgical History wisdom teeth Surgical History vasectomy Surgical History stent 2021 Hospitalization History see above [facility] Other Summary Purpose Family History No Family History Records FoundNo Family History Records FoundNo Family History Records FoundNo Family History Records Found Advance Directives No Advanced Directives Records FoundNo Advanced Directives Records FoundNo Advanced Directives Records FoundNo Advanced Directives Records Found Procedure Findings Note Patient: PARAS GRIGSBY [facility]: [id number] Age: 53 years Sex: Male : 1965 Associated Diagnoses: None Author: Sg Thayer Jr, DO Postoperative Information Post Operative Note: Post Anesthesia Care Unit. Anesthetic utilized: General. Health Status Allergies: Allergic Reactions (Selected) No Known Medication Allergies Problem list: All Problems COPD exacerbation / SNOMED CT 346303372 / Confirmed BMI 38.0-38.9,adult / SNOMED CT 774943029 / Confirmed Diabetes / SNOMED CT 314702879 / Confirmed new diagnosis on no meds yet Hypertension / SNOMED CT 4653615812 / Confirmed Hypertensive retinopathy / SNOMED CT 63326235 / Confirmed Umbilical hernia / SNOMED CT 6953701896 / Confirmed Resolved: Kidney stone / SNOMED CT 713825425 Physical Examination Vital Signs 10/07/2019 14:40 EST Heart Rate Monitored 82 bpm Respiratory Rate 16 br/min Systolic Blood Pressure 129 mmHg Diastolic Blood Pressure 78 mmHg Mean Arterial Pressure, Monitered 95 mmHg SpO2 99 % 10/07/2019 13:52 EST Heart (more content not included)... Additional Source Comments (unrecognized sect ion and content) No Status Records FoundNo Status Records FoundNo Status Records FoundNo Status Records Found INFORMATION SOURCE (unrecogn ized section and content) DATE CREATED AUTHOR 02/03/2020 [facility] DATE CREATED AUTHOR AUTHOR'S ORGANIZ ATION 03/19/2023 [facility] DATE CREATED AUTHOR AUTHOR'S ORGANIZ ATION 02/23/2024 [facility] DATE CREATED AUTHOR AUTHOR'S ORGANIZ ATION 03/31/2024 [facility] EPIC REASON FOR VISIT (unrecogniz ed section and content) RIGHT TOOTH PAINRIASH ALL OV ERRASH CAME BACKRIASH ALL OVER FOR RECORDS PERTAINING TO PATIENTS WHO ARE OR HAVE BEEN ENROLLED IN A CHEMICAL DEPENDENCY/SUBSTANCEABUSE PROGRAM, SOME INFORMATION MAY BE OMITTED. This clinical summary was aggregated from multiple sources. Caution should be exercised in using it in the provision of clinical care. This summary normalizes information from multiple sources, and as a consequence, information in this document may materially change the coding, format and clinical context of patient data. In addition, data may be omitted in some cases. CLINICAL DECISIONS SHOULD BE BASED ON THE PRIMARY CLINICAL RECORDS. [employer] provides no warranty or guarantee of the accuracy or [phone] in [phone] [id number]
--- NOTE | 2024-04-15 08:40 | NM_ITS ---
Patient Name: PARAS GRIGSBY MR#: [id number] : 1965 Exam Date: 04/15/2024 Ordering Doctor: DR Ben Jose . RADIOLOGY REPORT PROCEDURE: NM UMESH PERF SPECT REST STR COMPARISON: None. INDICATIONS: CHEST PAIN, HYPERTENSION, CORONARY ARTERY DISEASE TECHNIQUE: Exam Description: Stress/Rest two day protocol gated SPECT Rest Imagin.1 mCi Tc-99m Cardiolite IV on 04/15/2024 Stress Imaging 25.9 mCi Tc-99m Cardiolite IV on 04/16/2024 Exercise Protocol: 0.4 mg Lexiscan given IV Heart Rate (bpm): Rest: 53 Max: 81 PMHR: 50 Blood Pressure: Rest: 104/61 Max: 115/68 Symptoms: Rest and peak stress ECG findings were normal and the exercise portion of the study was normal per attending physician Dr. Patterson . For more details please see separate cardiac stress test report. FINDINGS: QUALITY OF STUDY: Good. PERFUSION DEFECT: LOCATION: Basal inferoseptal. Basal inferior. Mid-inferior. Apical inferior. [place]. SIZE: Large (5 or more segments). SEVERITY: Moderate. TYPE: Persistent. WALL MOTION: Normal. LV SIZE: Enlarged; EDV 144 mL. TID / TCD: None; 1.0 LVEF: Normal. Calculated EF 64%. SUMMARY: Myocardial perfusion imaging study has ABNORMAL findings. CONCLUSION: 1. Large fixed defect in the inferior wall, RCA distribution with no definite reversible ischemia 2. Dilated left ventricle, EDV 144 milliliters 3. Normal exercise test Dictated by: Christ Arce MD on 04/17/2024 at 08:50 Approved by: Christ Arce MD on 04/17/2024 at 08:51
== END 2024-04-15 08:10 | disposition home or self-care (01) ==
LOC: NM 08:10
PROVIDERS: PCP Family Medicine; Visit Provider Family Medicine
DX: R07.9 Chest pain, unspecified (principal); I25.10 Atherosclerotic heart disease of native coronary artery without angina pectoris; R06.00 Dyspnea, unspecified; E78.1 Pure hyperglyceridemia; G25.0 Essential tremor; E78.5 Hyperlipidemia, unspecified; R73.09 Other abnormal glucose; I11.0 Hypertensive heart disease with heart failure; I50.30 Unspecified diastolic (congestive) heart failure
CPT/HCPCS: 36415; 78452; 80053; 80061; 83036; 83525; 83880; 84153; 84436; 84443; 84481; 85025; A9500

== ENCOUNTER 2024-04-15 08:13 | Outpatient (OUT) | payer OTHER, SELFPAY ==
--- OUTSIDE RECORDS SUMMARY | 2024-04-15 08:28 | XMS_ITS | CCD ---
Author Organization [facility] Care Team Providers Care Desktop Operator Name Role Phone Dimple Milligan Unavailable [...] Unavailable HOY ., DR VERDIN Admitting Unavailable GUNNISON, DR PADMINI Ravi Consulting Unavailable HOY ., [...] HOY ., DR VERDIN Primary Care Unavailable [facility], DR CHACON Consulting Unavailable HOY ., DR VERDIN Primary Care Unavailable [facility] CHACON Attending Unavailable [place]TAHAW[place], DR CHACON [...] MARTINA ., DR VERDIN Primary Care Unavailable [facility], DR CHACON Attending Unavailable [facility] DR CHACON Admitting Unavailable [place], INES Attending [...] disease (7 sources) Atherosclerotic heart disease of [place] coronary artery without angina pectoris; Translations: [Coronary [...] 03-15-2023 Episodic Other aftercare (1 source) Other group home (current) drug therapy; Translations: [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 Thanks LM on VM. [facility] Office Visiton 02-21-2024 Follow-up visit [id number] Jada Grigsby 1965 M Date Provider Department Center 02/21/2024 INES MACEDO Family History Problem Relation Age of Onset Heart failure Father Coronary artery disease Father Family Status - Relation Status Age at Father Level of Service:94817 CT OFFICE/OUTPATIENT ESTABLISHED MOD MDM 30 MIN [facility] 11-27-2023 Follow-up visit [id number] Jada Grigsby 1965 M Date Provider Department Center 11/27/2023 INES MACEDO Family History Problem Relation Age of Onset Heart failure Father Coronary artery disease Father Family Status - Relation Status Age at Father Level of Service:14305 CT OFFICE/OUTPATIENT ESTABLISHED MOD MDM 30 MIN [facility] Orders Onlyon 06-21-2023 Orders Only [id number] Jada Grigsby 1965 M Date Provider Department Center 06/21/2023 ATUL DIETZ Family History Problem Relation Age of Onset Heart failure Father Coronary artery disease Father Family Status - Relation Status Age at Father [facility] 3606-19-2023 34 Please advise BP are higher than recommended targets. He can double on his Lisinopril and get BMP in 1 week after changes. Please send script and lab order. Thanks. [facility] 05-29-2023 Follow-up visit [id number] Jada Grigsby 1965 M Date Provider Department Center 05/29/2023 [id number] BROUSSARD [facility] Family History Problem Relation Age of Onset Heart failure Father Coronary artery disease Father Family Status - Relation Status Age at Father Level of Service:33034 CT OFFICE/OUTPATIENT ESTABLISHED LOW MDM 20-29 MIN Normal [facility] THEOPHYLLINEon 03-15-2023 THEOPHYLLINE 5.9 ug/mL Critically low 10.0-20.[address] [facility] Comment on above: Performed By: #### T ALAN #### [facility] [address] [address] [address] Navneet Godwin CHUCKIE by IFAon 01-23-2023 Antinuclear Antibodies, IFA Positive Abnormal [facility] Comment on above: Result Comment: Nega tive <1:80 Borderline 1:80 Positive >1:80 Performed By: #### C BC #### [facility] [address] [address] [address] Navneet Godwin Centriole Pattern Normal [facility] Comment on above: Performed By: #### C BC #### [facility] [address] [address] [address] Navneet Godwin Centromere Pattern Normal [facility] Comment on above: Performed By: #### C BC #### [facility] [address] [address] [address] Navneet Godwin Homogeneous Pattern 1:80 Normal [facility] Comment on above: Result Comment: ICAP nomenclature: AC-1 Performed By: #### C BC #### [facility] [address] [address] [address] Navneet Godwin Midbody Pattern Normal [facility] Comment on above: Performed By: #### C BC #### [facility] [address] [address] [address] Navneet Godwin Note: Comment Normal [facility] Comment on above: Result Comment: For [...] titers Nucleosomes, Histones Drug-induced SLE Speckled Sm, JAVA FLEX DEVELOPER, SCL-70, SLE,MCTD,PSS (diffuse form), SS-A/SS-B Sjogrens Nucleolar SCL-70, PM-1/SCL High titers Scleroderma, PM/DM Centromere Centromere PSS (limited form) w/Crest syndrome variable Nuclear Dot [id number] Primary Biliary Cirrhosis Nuclear GP210, Primary Biliary Cirrhosis Membrane ofelia A,B,C Performed By: #### C BC #### [facility] [address] [place] [address] Dr. Navneet Godwin Nuclear Dot Pattern Normal [facility] Comment on above: Performed By: #### C BC #### [facility] [address] [place] [address] Dr. Navneet Godwin Nuclear Membrane Pattern Normal [facility] Comment on above: Performed By: #### C BC #### [facility] [address] [place] [address] Dr. Navneet Godwin Nucleolar Pattern Normal [facility] Comment on above: Performed By: #### C BC #### [facility] [address] [place] [address] Dr. Navneet Godwin PCNA Pattern Normal [facility] Comment on above: Performed By: #### C BC #### [facility] [address] [place] [address] Dr. Navneet Godwin Speckled Pattern Normal [facility] Comment on above: Performed By: #### C BC #### [facility] [address] [place] [address] Dr. Navneet Godwin Spindle Apparatus Pattern Normal [facility] Comment on above: Performed By: #### C BC #### [facility] [address] [place] [address] Dr. Navneet Godwin INSULINon 01-23-2023 Insulin 50.9 uIU/mL Critically high 2.6-24.9 [facility] Comment on above: Performed By: #### I NSULIN #### [facility] [address] [place] [address] Dr. Navneet Godwin ANTISTREPTOLYSIN O AB (ASO)o n 01-22-2023 Antistreptolysin O Ab 55.6 IU/mL Normal 0.0-200.0 [facility] Comment on above: Performed By: #### H GB #### [facility] [address] [place] [address] Dr. Navneet Godwin RHEUMATOID FACTORon 01-23-20 RA Latex Turbid. <10.0 Normal <14.0 [facility] Comment on above: Performed By: #### H GB #### [facility] [address] [place] [address] Dr. Navneet Godwin CBC AUTO DIFFon 01-21-2023 BASO # 0.0 103/ul Normal 0.0-0.1 [facility] Comment on above: Performed By: #### C BC #### [facility] [address] [place] [address] Dr. Navneet Godwin Basophils/100 WBC (Bld) 0.8 % Normal 0.2-2.0 [facility] Comment on above: Performed By: #### C BC #### [facility] [address] [place] [address] Dr. Navneet Godwin EO # 0.1 103/ul Normal 0.0-0.7 [facility] Comment on above: Performed By: #### C BC #### [facility] [address] [place] [address] Dr. Navneet Godwin Eosinophils/100 WBC (Bld) 2.1 % Normal 0.9-7.0 [facility] Comment on above: Performed By: #### C BC #### [facility] [address] [place] [address] Dr. Navneet Godwin Erythrocyte distribution width (RBC) [Ratio] 13.7 % Normal 11.0-15.0 [facility] Comment on above: Performed By: #### C BC #### [facility] [address] [place] [address] Dr. Navneet Godwin Hematocrit (Bld) [Volume fraction] 37.6 % Critically low 42.0-54.0 [facility] Comment on above: Performed By: #### C BC #### [facility] [address] [place] [address] Dr. Navneet Godwin Hemoglobin (Bld) [Mass/Vol] 12.7 g/dL Critically low 14.0-18.0 [facility] Comment on above: Performed By: #### C BC #### [facility] [address] [place] [address] Dr. Navneet Godwin IG # 0.01 10e3/ul Normal 0.00-0.03 [facility] Comment on above: Performed By: #### C BC #### [facility] [address] [place] [address] Dr. Navneet Godwin IG % 0.2 % Normal 0.0-0.5 [facility] Comment on above: Performed By: #### C BC #### [facility] [address] [place] [address] Dr. Navneet Godwin LYMPH # 1.8 103/ul Normal 1.2-3.8 [facility] Comment on above: Performed By: #### C BC #### [facility] [address] [place] [address] Dr. Navneet Godwin Lymphocytes/100 WBC (Bld) 33.1 % Normal 20.5-60.0 [facility] Comment on above: Performed By: #### C BC #### [facility] [address] [place] [address] Dr. Navneet Godwin MANUAL DIFF REQ NO Normal [facility] Comment on above: Performed By: #### C BC #### [facility] [address] [place] [address] Dr. Navneet Godwin MCH (RBC) [Entitic mass] 29.4 pg Normal 25.9-34.0 [facility] Comment on above: Performed By: #### C BC #### [facility] [address] [place] [address] Dr. Navneet Godwin MCHC (RBC) [Mass/Vol] 33.8 g/dL Normal 29.9-35.2 [facility] Comment on above: Performed By: #### C BC #### [facility] [address] [place] [address] Dr. Navneet Godwin MCV (RBC) [Entitic vol] 87.0 fL Normal 80.0-94.0 [facility] Comment on above: Performed By: #### C BC #### [facility] [address] [place] [address] Dr. Navneet Godwin MONO # 0.4 103/ul Normal 0.3-0.8 [facility] Comment on above: Performed By: #### C BC #### [facility] [address] [place] [address] Dr. Navneet Godwin Monocytes/100 WBC (Bld) 8.1 % Normal 1.7-12.0 [facility] Comment on above: Performed By: #### C BC #### [facility] [address] [place] [address] Dr. Navneet Godwin NEUT # 2.9 103/ul Normal 1.4-6.5 [facility] Comment on above: Performed By: #### C BC #### [facility] [address] [place] [address] Dr. Navneet Godwin Neutrophils/100 WBC (Bld) 55.7 % Normal 43.0-75.0 [facility] Comment on above: Performed By: #### C BC #### [facility] [address] [place] [address] Dr. Navneet Godwin Platelet mean volume (Bld) [Entitic vol] 10.6 fL Normal 9.5-13.5 [facility] Comment on above: Performed By: #### C BC #### [facility] [address] [place] [address] Dr. Navneet Godwin PLT 236 103/ul Normal 150-450 [facility] Comment on above: Performed By: #### C BC #### [facility] [address] [place] [address] Dr. Navneet Godwin RBC 4.32 106/ul Critically low 4.70-6.10 [facility] Comment on above: Performed By: #### C BC #### [facility] [address] [place] [address] Dr. Navneet Godwin WBC 5.3 103/ul Normal 4.0-11.0 [facility] Comment on above: Performed By: #### C BC #### [facility] [address] [address] [address] Navneet Godwin CRPon 01-21-2023 CRP [Mass/Vol] mg/L Normal <=1.0 [facility] Comment on above: Performed By: #### H GB #### [facility] [address] [address] [address] Navneet Godwin FREE THYROXINE INDEX T7on FTI 2.59 Normal 1.30-4.50 [facility] Comment on above: Performed By: #### C BC #### [facility] [address] [address] [address] Navneet Godwin T3U 32.0 % Critically low 33.0-40.0 [facility] Comment on above: Performed By: #### C BC #### [facility] [address] [place] [address] Dr. Navneet Godwin T4 [Mass/Vol] 8.10 ug/dL Normal 4.50-12.10 [facility] Comment on above: Performed By: #### C BC #### [facility] [address] [address] [address] Navneet Godwin GLYCOHEMOGLOBIN A1Con 2022 ADA RECOMMENDATION SEE BELOW Normal [facility] Comment on above: Result Comment: ADA RECOMMENDED LIMIT 4.0 - 6.0 ADA THERAPEUTIC TARGET < 7.0 ACTION SUGGESTED > 7.0 Performed By: #### H GB #### [facility] [address] [place] [address] Dr. Navneet Godwin Glucose [Mass/Vol] 126 mg/dL Normal [facility] Comment on above: Performed By: #### H GB #### [facility] [address] [place] [address] Dr. Navneet Godwin HbA1c (Bld) [Mass fraction] 6.0 % Normal 4.5-6.2 [facility] Comment on above: Performed By: #### H GB #### [facility] [address] [place] [address] Dr. Navneet Godwin LIPID PROFILEon 01-21-2023 CHOL-HDL RATIO NORM SEE BELOW Normal [facility] Comment on above: Result Comment: 3.3 - 4.4 LOW RISK 4.4 - 7.1 AVERAGE RISK 7.1 - 11.0 MODERATE RISK >11.0 HIGH RISK Performed By: #### C BC #### [facility] [address] [address] [address] Navneet Godwin Cholesterol [Mass/Vol] 96 mg/dL Normal <=200 [facility] Comment on above: Performed By: #### C BC #### [facility] [address] [address] [address] Navneet Godwin Cholesterol in HDL [Mass/Vol] 45 mg/dL Normal 40-60 [facility] Comment on above: Performed By: #### C BC #### [facility] [address] [address] [address] Navneet Godwin Cholesterol in LDL [Mass/Vol] 37.2 mg/dL Normal [facility] Comment on above: Performed By: #### C BC #### [facility] [address] [address] [address] Navneet Godwin Cholesterol.total/C holesterol in HDL [Mass ratio] 2.1 {ratio} Normal [facility] Comment on above: Performed By: #### C BC #### [facility] [address] [address] [address] Navneet Godwin HDL NORMAL > or = 60 mg/dl - LO W CARDIOVASCULAR RISK <40 mg/dl - HIGH CARDIOVASCULAR RISK Normal [facility] Comment on above: Performed By: #### C BC #### [facility] [address] [address] [address] Navneet Godwin LDL CALC NORMAL SEE BELOW Normal [facility] Comment on above: Result Comment: <100 mg/dl OPTIMAL 100 - 129 mg/dl NEAR OR ABOVE OPTIMAL 130 - 159 mg/dl BORDERLINE HIGH 160 - 189 mg/dl HIGH >190 mg/dl VERY HIGH Performed By: #### C BC #### [facility] [address] [address] [address] Navneet Godwin Triglyceride [Mass/Vol] 69 mg/dL Normal <=150 [facility] Comment on above: Performed By: #### C BC #### [facility] [address] [place] [address] Dr. Navneet Godwin VLDL CALC 13.8 mg/dL Normal [facility] Comment on above: Performed By: #### C BC #### [facility] [address] [place] [address] Dr. Navneet Godwin OCC BLD IMMUNO SCREENon 01-04 OCCULT BLOOD Negative Normal NEGATIVE [facility] Comment on above: Performed By: #### O BSCRN #### [facility] [address] [place] [address] Dr. Navneet Godwin PROF 14(COMP METB)on 023 Albumin [Mass/Vol] 4.1 g/dL Normal 3.4-5.0 [facility] Comment on above: Performed By: #### C BC #### [facility] [address] [place] [address] Dr. Navneet Godwin Albumin/Globulin [Mass ratio] 1.4 {ratio} Normal [facility] Comment on above: Performed By: #### C BC #### [facility] [address] [place] [address] Dr. Navneet Godwin ALP [Catalytic activity/Vol] 40 U/L Critically low 46-116 [facility] Comment on above: Performed By: #### C BC #### [facility] [address] [place] [address] Dr. Navneet Godwin ALT [Catalytic activity/Vol] 33 U/L Normal 16-63 [facility] Comment on above: Performed By: #### C BC #### [facility] [address] [place] [address] Dr. Navneet Godwin Anion gap [Moles/Vol] 14.6 mmol/L Normal [facility] Comment on above: Performed By: #### C BC #### [facility] [address] [place] [address] Dr. Navneet Godwin AST [Catalytic activity/Vol] 33 U/L Normal 15-37 [facility] Comment on above: Performed By: #### C BC #### [facility] [address] [address] [address] Navneet Godwin Bilirubin [Mass/Vol] 0.4 mg/dL Normal 0.2-1.0 [facility] Comment on above: Performed By: #### C BC #### [facility] [address] [address] [address] Navneet Godwin Calcium [Mass/Vol] 9.2 mg/dL Normal 8.5-10.1 [facility] Comment on above: Performed By: #### C BC #### [facility] [address] [address] [address] Navneet oGdwin Chloride [Moles/Vol] 109 mmol/L Critically high 98-107 [facility] Comment on above: Performed By: #### C BC #### [facility] [address] [place] [address] Dr. Navneet Godwin CO2 [Moles/Vol] 23.1 mmol/L Normal 21.0-32.0 [facility] Comment on above: Performed By: #### C BC #### [facility] [address] [place] [address] Dr. Navneet Godwin Creatinine [Mass/Vol] 1.12 mg/dL Normal 0.70-1.30 [facility] Comment on above: Performed By: #### C BC #### [facility] [address] [place] [address] Dr. Navneet Godwin EGFR-AF PARAGUAYAN >60 Normal >=[address] [facility] Comment on above: Performed By: #### C BC #### [facility] [address] [place] [address] Dr. Navneet Godwin EGFR-NON AF PARAGUAYAN >60 Normal >=60 [facility] Comment on above: Performed By: #### C BC #### [facility] [address] [place] [address] Dr. Navneet Godwin Globulin (S) [Mass/Vol] 2.9 g/dL Normal [facility] Comment on above: Performed By: #### C BC #### [facility] [address] [place] [address] Dr. Navneet Godwin Glucose [Mass/Vol] 109 mg/dL Critically high 74-106 [facility] Comment on above: Performed By: #### C BC #### [facility] [address] [address] [address] Navneet Godwin Potassium [Moles/Vol] 3.7 mmol/L Normal 3.5-5.1 [facility] Comment on above: Performed By: #### C BC #### [facility] [address] [address] [address] Navneet Godwin Protein [Mass/Vol] 7.0 g/dL Normal 6.4-8.2 [facility] Comment on above: Performed By: #### C BC #### [facility] [address] [address] [address] Navneet Godwin Sodium [Moles/Vol] 143 mmol/L Normal 136-145 [facility] Comment on above: Performed By: #### C BC #### [facility] [address] [address] [address] Navneet Godwin Urea nitrogen [Mass/Vol] 18.0 mg/dL Normal 7.0-18.0 [facility] Comment on above: Performed By: #### C BC #### [facility] [address] [address] [address] Navneet Godwin Urea nitrogen/Creatinine [Mass ratio] 16.1 mg/mg Normal [facility] Comment on above: Performed By: #### C BC #### [facility] [address] [address] [address] Navneet Godwin TSHon 01-21-2023 TSH 1.912 uIU/mL Normal 0.358-3.740 [facility] Comment on above: Performed By: #### H GB #### [facility] [address] [address] [address] Navneet Godwin URIC ACID SERUMon 01-21-2023 Urate [Mass/Vol] 6.9 mg/dL Normal 3.5-7.2 [facility] Comment on above: Performed By: #### H GB #### [facility] [address] [address] [address] Navneet Godwin THEOPHYLLINEon 12-26-2022 THEOPHYLLINE 5.3 ug/mL Critically low 10.0-20.0 [facility] Comment on above: Performed By: #### C BC #### [facility] [address] [address] [address] Navneet Godwin LIPID PROFILEon 10-01-2022 CHOL-HDL RATIO NORM SEE BELOW Normal [facility] Comment on above: Result Comment: 3.3 - 4.4 LOW RISK 4.4 - 7.1 AVERAGE RISK 7.1 - 11.0 MODERATE RISK >11.0 HIGH RISK Performed By: #### L IPID, CMP #### [facility] [address] [address] [address] Navneet Godwin Cholesterol [Mass/Vol] 92 mg/dL Normal <=200 [facility] Comment on above: Performed By: #### L IPID, CMP #### [facility] [address] [address] [address] Navneet Godwin Cholesterol in HDL [Mass/Vol] 40 mg/dL Normal 40-60 [facility] Comment on above: Performed By: #### L IPID, CMP #### [facility] [address] [address] [address] Navneet Godwin Cholesterol in LDL [Mass/Vol] 33.2 mg/dL Normal [facility] Comment on above: Performed By: #### L IPID, CMP #### [facility] [address] [address] [address] Navneet Godwin Cholesterol.total/C holesterol in HDL [Mass ratio] 2.3 {ratio} Normal [facility] Comment on above: Performed By: #### L IPID, CMP #### [facility] [address] [address] [address] Navneet Godwin HDL NORMAL > or = 60 mg/dl - LO W CARDIOVASCULAR RISK <40 mg/dl - HIGH CARDIOVASCULAR RISK Normal [facility] Comment on above: Performed By: #### L IPID, CMP #### [facility] [address] [address] [address] Navneet Godwin LDL CALC NORMAL SEE BELOW Normal [facility] Comment on above: Result Comment: <100 mg/dl OPTIMAL 100 - 129 mg/dl NEAR OR ABOVE OPTIMAL 130 - 159 mg/dl BORDERLINE HIGH 160 - 189 mg/dl HIGH >190 mg/dl VERY HIGH Performed By: #### L IPID, CMP #### [facility] [address] [address] [address] Navneet Godwin Triglyceride [Mass/Vol] 94 mg/dL Normal <=150 [facility] Comment on above: Performed By: #### L IPID, CMP #### [facility] [address] [address] [address] Navneet Godwin VLDL CALC 18.8 mg/dL Normal [facility] Comment on above: Performed By: #### L IPID, CMP #### [facility] [address] [place] [address] Dr. Navneet Godwin PROF 14(COMP METB)on 022 Albumin [Mass/Vol] 3.6 g/dL Normal 3.4-5.0 [facility] Comment on above: Performed By: #### L IPID, CMP #### [facility] [address] [address] [address] Navneet Godwin Albumin/Globulin [Mass ratio] 1.2 {ratio} Normal [facility] Comment on above: Performed By: #### L IPID, CMP #### [facility] [address] [address] [address] Navneet Godwin ALP [Catalytic activity/Vol] 45 U/L Critically low 46-116 [facility] Comment on above: Performed By: #### L IPID, CMP #### [facility] [address] [address] [address] Navneet Godwin ALT [Catalytic activity/Vol] 25 U/L Normal 16-63 [facility] Comment on above: Performed By: #### L IPID, CMP #### [facility] [address] [address] [address] Navneet Godwin Anion gap [Moles/Vol] 13.5 mmol/L Normal [facility] Comment on above: Performed By: #### L IPID, CMP #### [facility] [address] [address] [address] Navneet Godwin AST [Catalytic activity/Vol] 37 U/L Normal 15-37 [facility] Comment on above: Performed By: #### L IPID, CMP #### [facility] [address] [place] [address] Dr. Navneet Godwin Bilirubin [Mass/Vol] 0.4 mg/dL Normal 0.2-1.0 [facility] Comment on above: Performed By: #### L IPID, CMP #### [facility] [address] [place] [address] Dr. Navneet Godwin Calcium [Mass/Vol] 8.9 mg/dL Normal 8.5-10.1 [facility] Comment on above: Performed By: #### L IPID, CMP #### [facility] [address] [place] [address] Dr. Navneet Godwin Chloride [Moles/Vol] 109 mmol/L Critically high 98-107 [facility] Comment on above: Performed By: #### L IPID, CMP #### [facility] [address] [place] [address] Dr. Navneet Godwin CO2 [Moles/Vol] 25.3 mmol/L Normal 21.0-32.0 [facility] Comment on above: Performed By: #### L IPID, CMP #### [facility] [address] [place] [address] Dr. Navneet Godwin Creatinine [Mass/Vol] 1.07 mg/dL Normal 0.70-1.30 [facility] Comment on above: Performed By: #### L IPID, CMP #### [facility] [address] [place] [address] Dr. Navneet Godwin EGFR-AF PARAGUAYAN >60 Normal >=60 [facility] Comment on above: Performed By: #### L IPID, CMP #### [facility] [address] [place] [address] Dr. Navneet Godwin EGFR-NON AF PARAGUAYAN >60 Normal >=60 [facility] Comment on above: Performed By: #### L IPID, CMP #### [facility] [address] [address] [address] Navneet Godwin Globulin (S) [Mass/Vol] 3.1 g/dL Normal [facility] Comment on above: Performed By: #### L IPID, CMP #### [facility] [address] [place] [address] Dr. Navneet Godwin Glucose [Mass/Vol] 115 mg/dL Critically high 74-106 [facility] Comment on above: Performed By: #### L IPID, CMP #### [facility] [address] [place] [address] Dr. Navneet Godwin Potassium [Moles/Vol] 3.8 mmol/L Normal 3.5-5.1 [facility] Comment on above: Performed By: #### L IPID, CMP #### [facility] [address] [place] [address] Dr. Navneet Godwin Protein [Mass/Vol] 6.7 g/dL Normal 6.4-8.2 [facility] Comment on above: Performed By: #### L IPID, CMP #### [facility] [address] [place] [address] Dr. Navneet Godwin Sodium [Moles/Vol] 144 mmol/L Normal 136-145 [facility] Comment on above: Performed By: #### L IPID, CMP #### [facility] [address] [place] [address] Dr. Navneet Godwin Urea nitrogen [Mass/Vol] 21.0 mg/dL Critically high 7.0-18.0 [facility] Comment on above: Performed By: #### L IPID, CMP #### [facility] [address] [place] [address] Dr. Navneet Godwin Urea nitrogen/Creatinine [Mass ratio] 19.6 mg/mg Normal [facility] Comment on above: Performed By: #### L IPID, CMP #### [facility] [address] [place] [address] Dr. Navneet Godwin ASPERGILLUS AB, QUANTITATIVE DIDon 07-08-2022 Aspergillus flavus Negative Normal Neg:<1:1 [facility] Comment on above: Performed By: #### C BC #### [facility] [address] [place] [address] Dr. Navneet Godwin Aspergillus fumigatus Negative Normal Neg:<1:1 [facility] Comment on above: Performed By: #### C BC #### [facility] [address] [place] [address] Dr. Navneet Godwin Aspergillus niger Negative Normal Neg:<1:1 [facility] Comment on above: Performed By: #### C BC #### [facility] [address] [place] [address] Dr. Navneet Godwin IMMUNOGLOBULIN E, TOTALon Immunoglobulin E, Total 102 IU/mL Normal 6-495 [facility] Comment on above: Performed By: #### C BC #### [facility] [address] [place] [address] Dr. Navneet Godwin ANTI NEUTROPHIL CYTOPLASMIC AB (ANCA) PRon 07-05-2022 Anti-MPO Antibodies <0.2 Normal 0.0-0.9 [facility] Comment on above: Result Comment: Perf ormed at: BN Performed By: #### H GB #### [facility] [address] [place] [address] Dr. Navneet Godwin Anti-PR3 Antibodies <0.2 Normal 0.0-0.9 [facility] Comment on above: Result Comment: Perf ormed at: BN Performed By: #### H GB #### [facility] [address] [place] [address] Dr. Navneet Godwin Atypical pANCA <1:20 Normal Neg:<1:20 [facility] Comment on above: Result Comment: The atypical pANCA pattern has been observed in a significant percentage of patients with ulcerative colitis, primary sclerosing cholangitis and autoimmune hepatitis. Performed at: CB Performed By: #### H GB #### [facility] [address] [place] [address] Dr. Navneet Godwin Cytoplasmic (C-ANCA) <1:20 Normal Neg:<1:20 [facility] Comment on above: Result Comment: Perf ormed at: CB Performed By: #### H GB #### [facility] [address] [place] [address] Dr. Navneet Godwin Perinuclear (P-ANCA) <1:20 Normal Neg:<1:20 [facility] Comment on above: Result Comment: The presence of positive fluorescence exhibiting P-ANCA or C-ANCA patterns alone is not specific for the diagnosis of Phoenix's Granulomatosis (WG) or microscopic polyangiitis. Decisions about treatment should not be based solely on ANCA IFA results. The International ANCA Group Consensus recommends follow up testing of positive sera with both CT-3 and MPO-ANCA enzyme immunoassays. As many as 5% serum samples are positive only by EIA. Ref. AM J Clin Pathol 1999;111:507-513. Performed at: CB Performed By: #### H GB #### [facility] [address] [place] [address] Dr. Navneet Godwin CBC AUTO DIFFon 06-30-2022 BASO # 0.0 103/ul Normal 0.0-0.1 [facility] Comment on above: Performed By: #### C BC #### [facility] [address] [place] [address] Dr. Navneet Godwin Basophils/100 WBC (Bld) 0.7 % Normal 0.2-2.0 [facility] Comment on above: Performed By: #### C BC #### [facility] [address] [place] [address] Dr. Navneet Godwin EO # 0.1 103/ul Normal 0.0-0.7 [facility] Comment on above: Performed By: #### C BC #### [facility] [address] [place] [address] Dr. Navneet Godwin Eosinophils/100 WBC (Bld) 1.9 % Normal 0.9-7.0 [facility] Comment on above: Performed By: #### C BC #### [facility] [address] [place] [address] Dr. Navneet Godwin Erythrocyte distribution width (RBC) [Ratio] 12.5 % Normal 11.0-15.0 [facility] Comment on above: Performed By: #### C BC #### [facility] [address] [place] [address] Dr. Navneet Godwin Hematocrit (Bld) [Volume fraction] 38.6 % Critically low 42.0-54.0 [facility] Comment on above: Performed By: #### C BC #### [facility] [address] [place] [address] Dr. Navneet Godwin Hemoglobin (Bld) [Mass/Vol] 12.9 g/dL Critically low 14.0-18.0 [facility] Comment on above: Performed By: #### C BC #### [facility] [address] [place] [address] Dr. Navneet Godwin IG # 0.01 10e3/ul Normal 0.00-0.03 [facility] Comment on above: Performed By: #### C BC #### [facility] [address] [place] [address] Dr. Navneet Godwin IG % 0.2 % Normal 0.0-0.5 [facility] Comment on above: Performed By: #### C BC #### [facility] [address] [place] [address] Dr. Navneet Godwin LYMPH # 2.4 103/ul Normal 1.2-3.8 [facility] Comment on above: Performed By: #### C BC #### [facility] [address] [place] [address] Dr. Navneet Godwin Lymphocytes/100 WBC (Bld) 41.7 % Normal 20.5-60.0 [facility] Comment on above: Performed By: #### C BC #### [facility] [address] [place] [address] Dr. Navneet Godwin MANUAL DIFF REQ NO Normal [facility] Comment on above: Performed By: #### C BC #### [facility] [address] [place] [address] Dr. Navneet Godwin MCH (RBC) [Entitic mass] 29.8 pg Normal 25.9-34.0 [facility] Comment on above: Performed By: #### C BC #### [facility] [address] [place] [address] Dr. Navneet Godwin MCHC (RBC) [Mass/Vol] 33.4 g/dL Normal 29.9-35.2 [facility] Comment on above: Performed By: #### C BC #### [facility] [address] [place] [address] Dr. Navneet Godwin MCV (RBC) [Entitic vol] 89.1 fL Normal 80.0-94.0 [facility] Comment on above: Performed By: #### C BC #### [facility] [address] [place] [address] Dr. Navneet Godwin MONO # 0.6 103/ul Normal 0.3-0.8 [facility] Comment on above: Performed By: #### C BC #### [facility] [address] [place] [address] Dr. Navneet Godwin Monocytes/100 WBC (Bld) 10.5 % Normal 1.7-12.0 [facility] Comment on above: Performed By: #### C BC #### [facility] [address] [place] [address] Dr. Navneet Godwin NEUT # 2.6 103/ul Normal 1.4-6.5 [facility] Comment on above: Performed By: #### C BC #### [facility] [address] [place] [address] Dr. Navneet Godwin Neutrophils/100 WBC (Bld) 45.0 % Normal 43.0-75.0 [facility] Comment on above: Performed By: #### C BC #### [facility] [address] [place] [address] Dr. Navneet Godwin Platelet mean volume (Bld) [Entitic vol] 10.1 fL Normal 9.5-13.5 [facility] Comment on above: Performed By: #### C BC #### [facility] [address] [place] [address] Dr. Navneet Godwin PLT 296 103/ul Normal 150-450 [facility] Comment on above: Performed By: #### C BC #### [facility] [address] [address] [address] Navneet Godwin RBC 4.33 106/ul Critically low 4.70-6.10 [facility] Comment on above: Performed By: #### C BC #### [facility] [address] [place] [address] Dr. Navneet Godwin WBC 5.8 103/ul Normal 4.0-11.0 [facility] Comment on above: Performed By: #### C BC #### [facility] [address] [place] [address] Dr. Navneet Godwin PROF CHEM 8 (BAS METB)on Anion gap [Moles/Vol] 13.2 mmol/L Normal [facility] Comment on above: Performed By: #### B MP #### [facility] [address] [place] [address] Dr. Navneet Godwin Calcium [Mass/Vol] 9.1 mg/dL Normal 8.5-10.1 [facility] Comment on above: Performed By: #### B MP #### [facility] [address] [place] [address] Dr. Navneet Godwin Chloride [Moles/Vol] 106 mmol/L Normal 98-107 [facility] Comment on above: Performed By: #### B MP #### [facility] [address] [place] [address] Dr. Navneet Godwin CO2 [Moles/Vol] 23.7 mmol/L Normal 21.0-32.[address] [facility] Comment on above: Performed By: #### B MP #### [facility] [address] [place] [address] Dr. Navneet Godwin Creatinine [Mass/Vol] 1.06 mg/dL Normal 0.70-1.30 [facility] Comment on above: Performed By: #### B MP #### [facility] [address] [place] [address] Dr. Navneet Godwin EGFR-AF PARAGUAYAN >60 Normal >=[address] [facility] Comment on above: Performed By: #### B MP #### [facility] [address] [address] [address] Navneet Godwin EGFR-NON AF PARAGUAYAN >60 Normal >=60 [facility] Comment on above: Performed By: #### B MP #### [facility] [address] [address] [address] Navneet Godwin Glucose [Mass/Vol] 94 mg/dL Normal 74-106 [facility] Comment on above: Performed By: #### B MP #### [facility] [address] [address] [address] Navneet Godwin Potassium [Moles/Vol] 3.9 mmol/L Normal 3.5-5.1 [facility] Comment on above: Performed By: #### B MP #### [facility] [address] [address] [address] Navneet Godwin Sodium [Moles/Vol] 139 mmol/L Normal 136-145 [facility] Comment on above: Performed By: #### B MP #### [facility] [address] [address] [address] Navneet Godwin Urea nitrogen [Mass/Vol] 17.0 mg/dL Normal 7.0-18.0 [facility] Comment on above: Performed By: #### B MP #### [facility] [address] [address] [address] Navneet Godwin Urea nitrogen/Creatinine [Mass ratio] 16.0 mg/mg Normal [facility] Comment on above: Performed By: #### B MP #### [facility] [address] [address] [address] Navneet Godwin XR CHEST 2 Von [...] by: MICKY MORENO Date: 2022-05-30 10:52 Normal [facility] ECHOCARDIO M/2D COMPLETEon 0 04-18-2022 ECHOCARDIO M/2D COMPLETE Patient: PARAS GRIGSBY Exam Date: 04/18/2022 : 1965 Gender:M Ordering : DR LAMBERT JOSE . Admission #: [id number] Family : Order #: [id number] CLICK HERE TO VIEW EXAM ECHOCARDIOGRAM REPORT [...] Area(A4C): 16.30 cm2 Left Atrium Systolic Volume(A2C): 70180 mm3 Left Atrium Systolic Volume(A4C): 83209 mm3 Mitral Valve MV E to A [...] Yu M.D. on 04/19/2022 at 18:16 Normal [facility] CTA CHEST WO W CONon -06-2 [...] PADMINI WHITE Date: 2022-04-11 07:16 Normal [facility] HEMOGLOBINon 03-24-2022 Hemoglobin (Bld) [Mass/Vol] 13.2 g/dL Critically low 14.0-18.0 [facility] Comment on above: Performed By: #### H GB #### [facility] [address] [place] [address] Dr. Navneet Godwin Progress Note-Physicianon Progress Note-Physician [...] patient tolerated the procedure well. . Normal [facility] Comment on above: Result Comment: Elec tronically Signed By: Sg Thayer Jr, DO\.br\Date and Time Signed: 10/15/19 10:48 EST Coding Summary.on 10-11-2019 Coding Summary. CODING DATE: 019 FINAL [facility] STATUS: Home (Routine DC) PAYOR: Medical Arthur APC DESCRIPTION 5361 Level 1 Laparoscopy and Related Services ADMIT DX: REASON FOR VISIT DX: K42.9 Umbilical hernia without obstruction or gangrene FINAL DX: PRINCIPAL: K42.9 Umbilical hernia without obstruction or gangrene SECONDARY: I10 Essential (primary) hypertension J44.9 Chronic obstructive pulmonary disease, unspecified PYMT PROC APC STAT DESCRIPTION DOCTOR NAME DATE 74933 5361 J1 Laparoscopy, surgical, Lee HAMPTON MD 10/07/2019 repair, ventral, umbilical, spigelian or epigastric hernia (includes mesh insertion, when performed); reducible 08593 Transversus abdominis Sg Thayer Jr, DO 10/07/2019 plane (TAP) block (abdominal plane block, rectus sheath block) bilateral; by injections (includes imaging guidance, when performed) XP Separate practitioner, a service that is distinct because it was performed by a different practitioner 94156 Anesthesia for hernia Sg Thayer Jr, DO [...] Revised Date Saved: 10/11/2019 11:51 am Normal [facility] Progress Note-Physicianon Progress Note-Physician Patient: PARAS GRIGSBY [...] All Problems COPD exacerbation / SNOMED CT 580452849 / Confirmed BMI 38.0-38.9,adult / SNOMED CT 890532147 / Confirmed Diabetes / SNOMED CT 402283822 / Confirmed new diagnosis on no meds yet Hypertension / SNOMED CT 9008114323 / Confirmed Hypertensive retinopathy / SNOMED CT 28764835 / Confirmed Umbilical hernia / SNOMED CT 3382873177 / Confirmed Resolved: Kidney stone / SNOMED CT 421460743 Histories Past Medical History: Resolved Kidney stone (840984973): Resolved. Family History: Heart disease Father Leukemia Mother Procedure history: Arthroscopy of knee (676058923). Comments: 09/30/2019 10:32 - Deya Guzman RN and left knee 09/18/2019 11:41 - Jose Ramon Caba RIGHT KNEE Tonsillectomy (040009705). ESWL of kidney (81073479). Arthroscopy of shoulder (261859235). Comments: 09/30/2019 10:33 - Thomas RN, Deya [...] results Radiology results ECG interpretation Condition Plan [place] [employer]hesi[employer] (ASA) physical status classification: Class III. Anesthetic Preoperative Plan Anesthesia: General. . Anesthetic plan, risks, benefits, and alternatives discussed with the patient and/or family. Risks discussed: nausea, vomiting, headache, sore throat, dental injury, serious complications. Patient verbalized understanding. Communication: face to face with (patient 5 minutes, Pt educated on the importance of smoking cessation.). [facility] Comment on above: Result Comment: Elec tronically Signed By: Sg Thayer Jr, DO\.ryley\Date and Time Signed: 10/11/19 08:51 EST Main OR Intraoperative Recor don 10-08-2019 Main OR Intraoperative Record IntraOp Document Type FT Summary Primary Physician: Lee HAMPTON MD Finalized Date/Time: 10/08/19 13:41:00 Pt. Name: PARAS GRIGSBY./Sex: 1965 Male Med Rec #: [id number] Physician: Lee HAMPTON MD Financial #: [id number] Pt. Type: A Room/Bed: 03/06 Admit/Disch: 10/07/19 07:08:00 - 10/07/19 15:10:00 Institution: Case Times FT Entry 1 Patient Times In Room 10/07/19 09:32:00 Out Room 10/07/19 11:43:00 Procedure Times Start 10/07/19 10:05:00 Stop 10/07/19 11:36:00 Anesthesia Times Start 10/07/19 09:32:00 Stop 10/07/19 11:43:00 Block Timeout w/ 10/07/19 09:47:00 Anesthesia Last Modified By: nAgelica Israel CST 10/07/19 11:42:42 General Comments: 0947- [...] Role Performed Anesthesiologist of Surgeon - Primary SECOND BUTLER Record Time In 10/07/19 09:32:00 10/07/19 09:32:00 10/07/19 09:32:00 Time Out 10/07/19 11:43:00 10/07/19 11:43:00 10/07/19 11:43:00 Procedure HERNIA REPAIR, ROBOT HERNIA REPAIR, ROBOT HERNIA REPAIR, ROBOT ASSISTED(.) ASSISTED(.) ASSISTED(.) Comments Last Modified By: Harsh RN, Gricelda House RN, Gricelda Richards RN 10/07/19 11:47:03 10/07/19 11:47:03 10/07/19 11:47:03 Entry 4 Entry 5 Case Attendee Harsh RN, Gricelda Richards CST, Ashely Lynch Role Performed Receivable Clerk - Primary Scrub - Primary Time In 10/07/19 09:32:00 10/07/19 09:32:00 Time Out 10/07/19 11:43:00 10/07/19 11:43:00 Procedure HERNIA REPAIR, ROBOT HERNIA REPAIR, ROBOT ASSISTED(.) ASSISTED(.) Comments Last Modified By: Gricelda House RN, RN, Emily A 10/07/19 11:47:03 10/07/19 [...] Antibiotic Yes Time Out Jeovany Lester DO, gS Jim, Given Participants ALEXIA LEWIS, Doreen Pavon [...] and tissue Entry 1 Skin Integrity Intact, Epps, Warm, and Skin Abnormality No Dry Outcomes [...] Head Large, Arm Sled Left, Other/See Comments, [place] Wedge Right Side By Gricelda House RN, [...] L/min Outcomes Met? Yes Last Modified By: Gricelda House RN 10/07/19 11:47:13 Post-Care Text: The patient is free from signs and symptoms of injury related to transfer/transport General Comments: REPORT GIVEN TO STUMPER FELLER. Cheryl STRINGER RN Dressing/Packing FT Pre-Care Text: [...] Description MESH STEX ROUND 9CM Lot Number [id number] (3.6 ) [SYM9][F] Cheese Blender FT-EntraTympanic Catalog ?# SYM9 [F] Size 9cm Expiration Date 11/05/23 Unique Device [id number] Human Readable {[id number] Identifier (DEE) Barcode [id number]{10 [id number] Machine Readable [id number] Barcode [id number] Usage Data FT Implant Site Abdomen Implant [...] Type TUBE NASOGASTIC SUMP Location mouth 18FR [111021][F] Quantity 1 Inserted By Sg Thayer Jr, [...] Present Upon Arrival No Inserted LF 16FR [[id number]][F] Insertion Date/Time 10/07/19 09:58:00 Urine Residual 125 [...] BLANKET MISTRAL AIR Quantity 1 Aid TORSO [[id number]][F] Fluid/[place] Unit Mistral warming system Setting high/43 Body Site Upper anterior torso Last Modified By: Gricelda House RN 10/07/19 10:32:35 Case Comments Finalized By: Angelica Israel CST Document Signatures Signed By: Gricelda House RN 10/07/19 11:47 Angelica Israel CST 10/08/19 13:40 Normal [facility] History and Physicalon 10-07 History and Physical Patient: PARAS GRIGSBY Age: 53 years Sex: Male : 1965 Associated Diagnoses: None Author: Lee HAMPTON MD Subjective no changes to H & P Normal [facility] Comment on above: Result Comment: Elec tronically Signed By: Lee HAMPTON MD\.br\Date and Time Signed: 10/07/19 09:08 EST Inpatient Patient Summaryon 10-07-2019 Inpatient Patient Summary [facility] Clinical Discharge Instructions PERSON INFORMATION Name: PARAS GRIGSBY PHYSICIANS Admitting Physician: Lee HAMPTON MD Attending Physician: Lee HAMPTON MD PCP: Lambert Jose MD Discharge Diagnosis: Hernia, umbilical Comment: PATIENT EDUCATION INFORMATION Instructions: Post Op Patient Instructions - FT (CUSTOM) Medication Leaflets: Follow up: With: Address: When: Lee ALEXIA [employer] [place] [address] [address] (1) Within 7 to 10 days MEDICATION LIST Fill New Prescriptions: acetaminophen-hydrocodone (acetaminophen-hydrocodone 325 mg-5 mg oral tablet) 1 tab(s) By Mouth every 4 hours as needed for Pain take with food or milk Comment: Adiel [facility] Main OR PACU I Recordon Main OR PACU I Record PACU Phase I Document Type FT Summary Primary Physician: Lee HAMPTON MD Finalized Date/Time: 10/07/19 12:51:42 Pt. Name: PARAS GRIGSBY/Sex: 1965 Male Med Rec #: [id number] Physician: Lee HAMPTON MD Financial #: [id number] Pt. Type: A Room/Bed: 03/06 Admit/Disch: 10/07/19 [...] By: Jason Chacon RN 10/07/19 12:51 Normal [facility] Main OR PACU II Recordon Main OR PACU II Record PACU Phase II Document Type FT Summary Primary Physician: Lee HAMPTON MD Finalized Date/Time: 10/07/19 17:37:19 Pt. Name: PARAS GRIGSBY/Sex: 1965 Male Med Rec #: [id number] Physician: Lee HAMPTON MD Financial #: [id number] Pt. Type: A Room/Bed: 03/06 Admit/Disch: 10/07/19 [...] By: Karie Fletcher RN 10/07/19 17:37 Normal [facility] Main OR Preoperative Recordo n 10-07-2019 Main OR Preoperative Record PreOp Document Type FT Summary Primary Physician: Lee HAMPTON MD Finalized Date/Time: 10/07/19 10:13:38 Pt. Name: PARAS GRIGSBY/Sex: 1965 Male Med Rec #: [id number] Physician: Lee HAMPTON MD Financial #: [id number] Pt. Type: A Room/Bed: [facility] [...] By: Gricelda House RN 10/07/19 10:13 Normal [facility] Operative Reporton 9 Operative Report Date of Surgery: 12/2018 SURGEON: Lee Hampton M.D. PREOPERATIVE DIAGNOSIS: Enlarging umbilical hernia POSTOPERATIVE DIAGNOSIS: Enlarging umbilical hernia OPERATION: Robotic-assisted umbilical herniorrhaphy with 9 cm Symbotex mesh insertion ANESTHESIA: General endotracheal ANESTHESIOLOGIST: Sg hTayer Jr., D.O. ESTIMATED BLOOD LOSS: Less than [...] brought in, exchanged for the #2 needle rickshaw driver and sutures were all cut. The needles [...] fascia was closed with a 0 Vicryl [id number]-[id number] suture. All port sites were infiltrated with [...] condition. Lee Hampton M.D. gls Dictated: 10/07/2019 #[id number] Typed: 10/07/2019 #[id number] cc: Alex Hdz M.D. Normal [facility] Comment on above: Result Comment: Elec tronically Signed By: ALEXIA LEWIS, Lee Whitleybr\Date and Time Signed: 10/07/19 13:50 EST Patient Education - Texton 1 12-08-2018 Patient Education - Text Normal [facility] UA With Cult Reflexon 2018 Bilirubin Ql (U) Negative Normal Negative [facility] Comment on above: Performed By: #### 2 748783, 9210061, 6826748, 67329113, 7321649, 5445627 #### [facility] [address] [place] [address] Clarity (U) CLEAR Normal Clear [facility] Comment on above: Performed By: #### 2 779963, 4240057, 3190220, 09348860, 1511408, 1897115 #### [facility] [address] [place] [address] Color (U) YELLOW Normal Yellow [facility] Comment on above: Performed By: #### 2 147211, 8385316, 9521532, 95783558, 0065375, 3170271 #### [facility] [address] [place] [address] Epithelial cells.squamous LM.HPF (Urine sed) [#/Area] 0-2 Normal 0-2 [facility] Comment on above: Performed By: #### 2 575621, 1484469, 7558163, 78259113, 2469025, 1382401 #### [facility] [address] [place] [address] Glucose Test strip (U) [Mass/Vol] Negative Normal Negative [facility] Comment on above: Performed By: #### 2 646367, 1136830, 7446864, 20991881, 0741501, 1583400 #### [facility] [address] [place] [address] Hemoglobin Ql (U) Negative Normal Negative [facility] Comment on above: Performed By: #### 2 256162, 5628362, 6121215, 60583494, 9525190, 1806088 #### [facility] [address] [place] [address] Ketones (U) [Mass/Vol] Negative Normal Negative [facility] Comment on above: Performed By: #### 2 108055, 1292011, 1264532, 56577056, 2541364, 7666620 #### [facility] [address] [place] [address] [place].plasma/Lith ium.RBC (Bld) [Mass ratio] 0-3 Normal 0-3 [facility] Comment on above: Performed By: #### 2 889812, 4906210, 2476335, 88640053, 2600866, 7416372 #### [facility] [address] [place] [address] Nitrite Ql (U) Negative Normal Negative [facility] Comment on above: Performed By: #### 2 701153, 5847486, 0043350, 50886906, 8544107, 9043941 #### [facility] [address] [place] [address] pH (U) 5.5 [pH] 5.0-9.0 [facility] Comment on above: Performed By: #### 2 634826, 5227675, 6485146, 94338335, 3630415, 9494272 #### [facility] [address] [place] [address] Protein (U) [Mass/Vol] Negative Normal Negative [facility] Comment on above: Performed By: #### 2 158940, 4383878, 9255804, 93986114, 3100431, 6207387 #### [facility] [address] [place] [address] Specific gravity (U) [Rel density] >=1.030 1.005-1.030 [facility] Comment on above: Performed By: #### 2 550373, 4916434, 3810136, 62814181, 0221431, 2603997 #### [facility] [address] [place] [address] UA Spec Desc Villegas Normal [facility] Comment on above: Performed By: #### 2 696363, 8998172, 1670494, 87290043, 1899977, 9034078 #### [facility] [address] [place], [place] [address] Urobilinogen Qn (U) 0.2 {Nayeli'U}/dL Normal 0.0-1.0 [facility] Comment on above: Performed By: #### 2 367388, 8533216, 1432159, 20869499, 5132807, 4069396 #### [facility] [address] [place] [address] WBC Auto Ql (U) Negative Normal Negative [facility] Comment on above: Performed By: #### 2 414945, 6745027, 9832911, 34911605, 8288362, 9977038 #### [facility] [address] [place], [place] [id number] WBC LM.HPF (Urine sed) [#/Area] 0-5 Normal 0-5 [facility] Comment on above: Performed By: #### 2 595335, 9549788, 3460072, 69506087, 5431737, 5082286 #### [facility] [address] [place], [place] [id number] Coding Summary.on 10-01-2019 Coding Summary. CODING DATE: 019 FINAL [facility] STATUS: Home (Routine DC) PAYOR: Medical Arthur APC DESCRIPTION 5521 Level 1 Imaging without [...] CphT Date Saved: 10/01/2019 06:34 am Normal [facility] XR Chest 2 Viewson 9 XR Chest [...] MD Transcribed by: ANKITA Technologist: RH Normal [facility] BUNon 09-30-2019 Urea nitrogen [Mass/Vol] 15 mg/dL Normal 5-21 [facility] Comment on above: Performed By: #### 2 129160, 9065180, 2752172, 70706440, 9306770, 1622031 #### [facility] [address] [place] [address] CBC w/Indiceson 09-30-2019 Erythrocyte distribution width (RBC) [Ratio] 13.2 % Normal 10.9-14.2 [facility] Comment on above: Performed By: #### 2 661618, 0499119, 8039816, 19104656, 3740398, 8726952 #### [facility] [address] [place] [address] Hematocrit (Bld) [Volume fraction] 42.9 % Normal 37.7-49.0 [facility] Comment on above: Performed By: #### 2 681160, 7028398, 5896783, 01554532, 7846785, 6021792 #### [facility] [address] [place] [address] Hemoglobin (Bld) [Mass/Vol] 14.7 g/dL Normal 13.5-17.5 [facility] Comment on above: Performed By: #### 2 769034, 4061063, 9853745, 44002471, 9203239, 0117681 #### [facility] [address] [place] [address] 94067 MCH (RBC) [Entitic mass] 31.4 pg Normal 27.0-34.0 [facility] Comment on above: Performed By: #### 2 653655, 7223707, 9347423, 32714182, 4136273, 4136618 #### [facility] [address] [place] [address]4942 MCHC (RBC) [Mass/Vol] 34.2 g/dL Normal 31.4-36.0 [facility] Comment on above: Performed By: #### 2 147425, 7411886, 3332475, 56830437, 3455600, 5723221 #### [facility] [address] [place] [address]77 MCV (RBC) [Entitic vol] 91.9 fL Normal 80.0-100.0 [facility] Comment on above: Performed By: #### 2 143498, 3693953, 1149858, 06491886, 0345063, 0058045 #### [facility] [address] [place] [address]658 Platelet mean volume (Bld) [Entitic vol] 9.0 fL Normal 6.4-10.8 [facility] Comment on above: Performed By: #### 2 014471, 4159277, 4946420, 28741647, 3690697, 7583399 #### [facility] [address] [place] [address] Platelets (Bld) [#/Vol] 230.0 E9/L Normal 150.0-500.0 [facility] Comment on above: Performed By: #### 2 546731, 5896788, 5590497, 33012760, 4196514, 8228995 #### [facility] [address] [place] [address] RBC (Bld) [#/Vol] 4.7 E12/L Normal 4.3-5.9 [facility] Comment on above: Performed By: #### 2 466568, 7582777, 3970887, 97292464, 2686320, 5426228 #### [facility] [address] [place] [address] WBC corrected for nucl RBC Auto (Bld) [#/Vol] 5.7 E9/L Normal 4.0-11.0 [facility] Comment on above: Performed By: #### 2 248882, 4045465, 6774645, 89006968, 2320036, 1264721 #### [facility] [address] [place] [address] Creatinineon 09-30-2019 Creatinine [Mass/Vol] 0.8 mg/dL Normal 0.5-1.3 [facility] Comment on above: Performed By: #### 2 335673, 0530573, 1164708, 90160486, 2568379, 0276492 #### [facility] [address] [place] [address] Glucoseon 09-30-2019 Glucose [Mass/Vol] 91 mg/dL Normal 55-199 [facility] Comment on above: Performed By: #### 2 532585, 1652853, 8947087, 89555920, 3630715, 1681470 #### [facility] [address] [place] [address] Lyteson 09-30-2019 Anion gap [Moles/Vol] 13 mmol/L Normal 6-16 [facility] Comment on above: Performed By: #### 2 085302, 2681974, 2819140, 68203468, 1758896, 2164708 #### [facility] [address] [place] [address] Chloride [Moles/Vol] 109 mmol/L Normal 101-111 [facility] Comment on above: Performed By: #### 2 592608, 8356050, 7072992, 80350702, 8977889, 3071506 #### [facility] [address] [place] [address] CO2 [Moles/Vol] 22 mmol/L Normal 21-31 [facility] Comment on above: Performed By: #### 2 523775, 7697437, 4753401, 26566631, 4308356, 2207245 #### [facility] [address] [place] [address] Potassium [Moles/Vol] 4.0 mmol/L Normal 3.5-5.3 [facility] Comment on above: Performed By: #### 2 244158, 4669976, 8870863, 36108075, 2549182, 3216667 #### [facility] [address] [place] [address] Sodium [Moles/Vol] 140 mmol/L Normal 135-145 [facility] Comment on above: Performed By: #### 2 941029, 4063501, 0434027, 46277377, 5937234, 8484867 #### [facility] [address] [place] [address] eGFRon 09-30-2019 GFR/1.73 sq M predicted among blacks MDRD (S/P/Bld) [Vol rate/Area] mL/min/{1.73_m2} Normal >=59 [facility] Comment on above: Order Comment: Order added by Discern Expert. Result Comment: eGFR is race adjusted. AA=. Performed By: #### 2 509594, 1294302, 5941726, 45988769, 3665849, 8693032 #### [facility] [address] [place] [address] GFR/1.73 sq M predicted among non-blacks MDRD (S/P/Bld) [Vol rate/Area] mL/min/{1.73_m2} Normal >=59 [facility] Comment on above: Order Comment: Order added by Discern Expert. Result Comment: Tapper Supervisor amy kidney disease could be indicated at eGFR's of less than 60 mL/min/1.73m2. Kidney failure is indicated at less than 15 mL/min/1.73m2. Performed By: #### 2 951888, 9275721, 0291465, 32264227, 5002475, 0685609 #### [facility] [address] [place] [address] Vital Signs Date Time Vital Sign Value Performing Clinician Facility 02-23-2023 16:25-0400 Body height 170.18 cm Yasmine Joaquin Other [facility] Other 02-23-2023 16:25-0400 Body mass index (BMI) [Ratio] 40.72 kg/m2 Yasmine Joaquin Other [facility] Other 02-23-2023 16:25-0400 Body temperature 98.8 [degF] Yasmine Joaquin Other [facility] Other 02-23-2023 16:25-0400 Body weight 117.94 kg Yasmine Joaquin Other [facility] Other 02-23-2023 16:25-0400 Diastolic blood pressure 70 mm[Hg] Yasmine Joaquin Other [facility] Other 02-23-2023 16:25-0400 Respiratory rate 18 /min Yasmine Joaquin Other [facility] Other 02-23-2023 16:25-0400 SaO2% (BldA) [Mass fraction] 97 % Yasmine Joaquin Other [facility] Other 02-23-2023 16:25-0400 Systolic blood pressure 131 mm[Hg] Yasmine Joaquin Other [facility] Other 02-17-2023 10:10-0400 Body height 170.18 cm Emma Guerrero Other [facility] Other 02-17-2023 10:10-0400 Body mass index (BMI) [Ratio] 40.72 kg/m2 Emma Guerrero Other [facility] Other 02-17-2023 10:10-0400 Body temperature 97.7 [degF] Emma Guerrero Other [facility] Other 02-17-2023 10:10-0400 Body weight 117.94 kg Emma Guerrero Other [facility] Other 02-17-2023 10:10-0400 Respiratory rate 18 /min Emma Guerrero Other [facility] Other 02-17-2023 10:10-0400 SaO2% (BldA) [Mass fraction] 94 % Emma Guerrero Other [facility] Other 02-15-2022 18:45-0400 Body height 170.18 cm Dimple Milligan Other [facility] Other 02-15-2022 18:45-0400 Body mass index (BMI) [Ratio] 39.46 kg/m2 Dimple Milligan Other [facility] Other 02-15-2022 18:45-0400 Body temperature 98.2 [degF] Dimple Milligan Other [facility] Other 02-15-2022 18:45-0400 Body weight 114.31 kg Dimple Milligan Other [facility] Other 02-15-2022 18:45-0400 Diastolic blood pressure 93 mm[Hg] Dimple Milligan Other [facility] Other 02-15-2022 18:45-0400 Respiratory rate 18 /min Dimple Milligan Other [facility] Other 02-15-2022 18:45-0400 SaO2% (BldA) [Mass fraction] 96 % Dimple Milligan Other [facility] Other 02-15-2022 18:45-0400 Systolic blood pressure 158 mm[Hg] Dimple Milligan Other [facility] Other Encounters Encounter Date Encounter Type Care Provider Facility Start: 03-28-2024 End: 03-28-2024 ambulatory DEBORA E RAMBASEK Not Available Start: 02-21-2024 End: 02-21-2024 ambulatory [facility] Start: 02-14-2024 End: 02-14-2024 ambulatory ANDRE PRESCOTT Not Available Start: 11-27-2023 End: 11-27-2023 ambulatory [facility] Start: 11-23-2023 End: 11-23-2023 ambulatory DEBORA E RAMBASEK Not Available Start: 10-09-2023 End: 10-10-2023 ambulatory DEBORA E RAMBASEK Not Available Start: 09-27-2023 End: 09-27-2023 ambulatory DEBORA E RAMBASEK Not Available Start: 05-29-2023 End: 05-29-2023 ambulatory CECI [facility] Start: 03-15-2023 End: 03-16-2023 ambulatory MARYURI HADDAD Facility:[facility] Start: 02-25-2023 End: 02-25-2023 ambulatory ANABELLE JASEN . Facility:[facility] Start: 02-23-2023 End: 02-23-2023 ambulatory Yasmine Joaquin Other [facility] Other Start: 02-23-2023 Office outpatient vi sit 15 minutes Yasmine Joaquin [facility] Start: 02-17-2023 End: 02-17-2023 ambulatory Emma Guerrero Other [facility] Other Start: 02-17-2023 Office outpatient vi sit 15 minutes Emmakelsea Guerrero [facility] Start: 01-28-2023 Encounter for genera l adult medical examination without abnormal findings DR LAMBERT JOSE . [facility] Start: 01-21-2023 End: 01-22-[address] [...] 02-15-2022 End: 02-15-2022 ambulatory Dimple Milligan Other [facility] Other Start: 02-15-2022 Office outpatient vi sit [address] [facility] Procedures Date Procedure Procedure Detail Performing Clinician Start: 01-21-2023 PSA screening MARYURI CHAMPION [facility] Comment on above: Performed By: #### P [facility] #### [facility] [address] [place] [address] Dr. Navneet Godwin Payers Date Payer Category Payer Unknown [id number] 2.16.84 0.1.289412.3.579.2.593 1965 Unknown [id number] 2.16.84 0.1.079134.3.579.2.593 1965 Unknown [id number] 2.16.84 0.1.951110.3.579.2.593 1965 Unknown [id number] 2.16.84 0.1.415365.3.579.2.593 1965 Unknown [id number] 2.16.84 0.1.935901.3.579.2.593 1965 Unknown [id number] 2.16.84 0.1.748631.3.579.2.593 1965 Unknown [id number] 2.16.84 0.1.641858.3.579.2.593 1965 Unknown [id number] 2.16.84 0.1.089359.3.579.2.593 1965 Unknown [id number] 2.16.84 0.1.490736.3.579.2.593 1965 Unknown [id number] 2.16.84 0.1.627201.3.579.2.593 1965 Unknown [id number] 2.16.84 0.1.785626.3.579.2.593 1965 Unknown [id number] 2.16.84 0.1.191787.3.579.2.593 1963 Unknown [id number] 2.16.84 0.1.106288.3.579.2.593 1963 Unknown [id number] 2.16.84 0.1.100525.3.579.2.1259 1963 Unknown [id number] 2.16.84 0.1.381952.3.579.2.1259 1963 Unknown [id number] 2.16.84 0.1.085589.3.579.2.1259 1963 Unknown [id number] 2.16.840 .1.008907.3.579.2.1259 1965 Unknown [id number] 2.16.840 .1.029461.3.579.2.1259 1959 Unknown [id number] 2. 16.840.1.163334.19 Social History Date Type Detail Facility Sex Assigned At [facility] Other Progress note 02-21-2024 Note Date & Type Note Facility 02-21-[address] [facility] Cardiology Clinic Note Chief Complaint: Patient here [...] history of COPD (chronic obstructive pulmonary disease) ([facility]), Coronary artery disease, Hyperlipidemia, Hypertension, and Sleep [...] Normal cardiac output/cardi (more content not included)... [facility] Progress note 11-27-2023 Note Date & Type [...] history of COPD (chronic obstructive pulmonary disease) ([facility]), Coronary artery disease, Hyperlipidemia, Hypertension, and Sleep [...] plus or min (more content not included)... [facility] Progress note 05-29-2023 Note Date & Type Note Facility 05-29-2023 Note Cardiology Clinic No te Subjective Paras Grigsby is a 57 y.o. year old male patient with coronary artery disease status post left circumflex PCI in 2021 and hypertension seen in follow-up. seen for No chief complaint on file. Patient Active Problem List Diagnosis Chest pain CAD in [place] artery Essential hypertension COPD (chronic obstructive pulmonary disease) ([facility]) S/P drug eluting coronary stent placement Hyperplastic [...] 5. Follow-up with Dr. Serna in the [facility] in the next 2 to 4 weeks [...] 04/18/2022 LV syst (more content not included)... [facility] Progress note 05-29-2023 Note Date & Type [...] All other systems reviewed and are negative. [facility] Evaluation note 02-23-2023 Note Date & Type Note Facility 02-23-2023 Evaluation note Encounter Date Diagnosis Assessment Notes Feb, Urticaria (ICD-10 - L50.9) Discussed diagnosis with patient. We will send in Rx of prednisone taper to use as directed. Continue dezw-sia-ccswdwa Benadryl/Zyrtec or Claritin. Advised patient to avoid hot showers/baths encouraged use of cool compresses. Patient needs to follow-up with PCP if this rash does not improve with treatment. Immediate evaluation in ER for signs and symptoms as discussed. Patient verbalizes understanding and is agreeable to treatment plan. [facility] Other Evaluation note 02-17-2023 Note Date & [...] concerns Feb, Acute cough (ICD-10 - R05.1) [facility] Other Evaluation note 02-15-2022 Note Date & Type Note Facility 02-15-2022 Evaluation note Encounter Date Diagnosis Assessment Notes Feb, Infected tooth (ICD-10 - K04.7) Take medications as directed.Highly encourage patient to contact dentist TIARA for further treatment of infection. Do not take OTC medications like ibuprofen with prescriptions [facility] Other History general Narrative - Reported Note Date & Type Note Facility History general Narrative - Reported Type Medical History Benign essential HTN Surgical History knee surgery Surgical History shoulder surgery Surgical History tonsillectomy and adenoidectomy Surgical History wisdom teeth Surgical History vasectomy Hospitalization History see above [facility] Other History general Narrative - Reported Note Date & Type Note Facility History general Narrative - Reported Type Medical History Benign essential HTN Medical History High cholesterol Surgical History knee surgery Surgical History shoulder surgery Surgical History tonsillectomy and adenoidectomy Surgical History wisdom teeth Surgical History vasectomy Surgical History stent 2021 Hospitalization History see above [facility] Other Summary Purpose Family History No Family History Records FoundNo Family History Records FoundNo Family History Records FoundNo Family History Records Found Advance Directives No Advanced Directives Records FoundNo Advanced Directives Records FoundNo Advanced Directives Records FoundNo Advanced Directives Records Found Procedure Findings Note Patient: PARAS GRIGSBY [facility]: [id number] Age: 53 years Sex: Male : 1965 Associated Diagnoses: None Author: Sg Thayer Jr, DO Postoperative Information Post Operative Note: Post Anesthesia Care Unit. Anesthetic utilized: General. Health Status Allergies: Allergic Reactions (Selected) No Known Medication Allergies Problem list: All Problems COPD exacerbation / SNOMED CT 111259731 / Confirmed BMI 38.0-38.9,adult / SNOMED CT 868945129 / Confirmed Diabetes / SNOMED CT 167901991 / Confirmed new diagnosis on no meds yet Hypertension / SNOMED CT 4005022035 / Confirmed Hypertensive retinopathy / SNOMED CT 19479027 / Confirmed Umbilical hernia / SNOMED CT 5388652257 / Confirmed Resolved: Kidney stone / SNOMED CT 126389388 Physical Examination Vital Signs 10/07/2019 14:40 EST [...] section and content) DATE CREATED AUTHOR 02/03/2020 [facility] DATE CREATED AUTHOR AUTHOR'S ORGANIZ ATION 03/19/2023 [facility] DATE CREATED AUTHOR AUTHOR'S ORGANIZ ATION 02/23/2024 [facility] DATE CREATED AUTHOR AUTHOR'S ORGANIZ ATION 03/31/2024 [facility] EPIC REASON FOR VISIT (unrecogniz [...] BE BASED ON THE PRIMARY CLINICAL RECORDS. [employer] provides no warranty or guarantee of the accuracy or completeness of information in this document.
[2024-04-15 08:36] LABS: Basophils Absolute Auto 0.1 10^3/uL (0.0-0.1); Basophils Percent Auto 1.1 % (0.2-2.0); Eosinophils Absolute Auto 0.2 10^3/uL (0.0-0.7); Eosinophils Percent Auto 4.2 % (0.9-7.0); Hematocrit 34.8 % (42.0-54.0); Hemoglobin 11.7 g/dL (14.0-18.0); Immature Granulocytes Abs Auto 0.02 10^3/uL (0.00-0.03); Immature Granulocytes Pct Auto 0.4 % (0.0-0.5); Lymphocytes Absolute Auto 1.9 10^3/uL (1.2-3.8); Lymphocytes Percent Auto 34.9 % (20.5-60.0); Mean Corpuscular HGB Conc 33.6 g/dL (29.9-35.2); Mean Corpuscular Hemoglobin 30.5 pg (25.9-34.0); Mean Corpuscular Volume 90.6 fL (80.0-94.0); Mean Platelet Volume 10.2 fL (9.5-13.5); Monocytes Absolute Auto 0.5 10^3/uL (0.3-0.8); Monocytes Percent Auto 8.9 % (1.7-12.0); Neutrophils Absolute Auto 2.8 10^3/uL (1.4-6.5); Neutrophils Percent Auto 50.5 % (43.0-75.0); Platelet Count 256 10^3/uL (150-450); Red Blood Count 3.84 10^6/uL (4.70-6.10); Red Cell Distribution Width 13.3 % (11.0-15.0); White Blood Count 5.5 10^3/uL (4.0-11.0)
[2024-04-15 10:34] LABS: Prostate Specific Antigen Dx 0.83 ng/mL (<=4.00)
[2024-04-15 10:41] LABS: Alanine Aminotransferase 28 U/L (16-63); Albumin Globulin Ratio 1.2; Albumin Level 3.7 g/dL (3.4-5.0); Alkaline Phosphatase 38 U/L (46-116); Anion Gap 13.8; Aspartate Amino Transferase 36 U/L (15-37); BUN Creatinine Ratio 22.1; Bilirubin Total 0.4 mg/dL (0.2-1.0); Calcium 8.9 mg/dL (8.5-10.1); Carbon Dioxide 26.1 mmol/L (21.0-32.0); Chloride 107 mmol/L (98-107); Chol HDL Ratio 2.8; Cholesterol 99 mg/dL (<=200); Estimated GFR (African America 56 (>=60); Estimated GFR (Non-African Ame 46 (>=60); Free T3 1.73 pg/mL (2.18-3.98); Globulin 3.2 g/dL; Glucose 102 mg/dL (74-106); HDL Cholesterol 35 mg/dL (40-60); Potassium 3.9 mmol/L (3.5-5.1); Sodium 143 mmol/L (136-145); Thyroid Stimulating Hormone 1.614 uIU/mL (0.358-3.740); Total Protein 6.9 g/dL (6.4-8.2); Triglycerides 129 mg/dL (<=150); VLDL CHOLESTEROL 25.8 mg/dL
[2024-04-15 10:59] LABS: Estimated Average Glucose 131 mg/dL; Glycohemoglobin A1C 6.2 % (4.5-6.2)
== END 2024-04-15 08:14 | disposition home or self-care (01) ==
LOC: LAB 08:14
PROVIDERS: PCP Family Medicine; Visit Provider Family Medicine
DX: R07.9 Chest pain, unspecified (principal); I25.10 Atherosclerotic heart disease of native coronary artery without angina pectoris; R06.00 Dyspnea, unspecified; E78.1 Pure hyperglyceridemia; G25.0 Essential tremor; E78.5 Hyperlipidemia, unspecified; R73.09 Other abnormal glucose; I50.30 Unspecified diastolic (congestive) heart failure; I11.0 Hypertensive heart disease with heart failure
CPT/HCPCS: 36415; 80053; 80061; 83036; 83525; 83880; 84153; 84436; 84443; 84481; 85025

== ENCOUNTER 2024-04-16 07:29 | Outpatient (OUT) | payer OTHER, SELFPAY ==
--- OUTSIDE RECORDS SUMMARY | 2024-04-16 07:32 | XMS_ITS ---
Patient Summarization (C-CDA 2.1 CCD) Created on: April 16, 2024 Yessica DE LA TORRE~[place] : 1965 Sex: Male Author Organization Sample organization Care Team Providers Care Medical Delivery Driver Name Role Phone Dimple Milligan Unavailable Emma [...] Unavailable HOY ., DR VERDIN Admitting Unavailable W[place], DR PADMINI Ravi Consulting Unavailable HOY ., [...] MARYURI Attending Unavailable SAMSA, MARYURI Admitting Unavailable JASEN .ANABELLE Consulting Unavailable JASEN ., ANABELLE Attending Unavailable JASEN .ANABELLE Admitting Unavailable HOY ., DR VERDIN Primary Care Unavailable ELTAHAWY, DR CHACON Consulting Unavailable HOY ., DR VERDIN Primary Care Unavailable ELTAHAWY, DR CHACON Attending Unavailable ELTAHAWY, DR CHACON Admitting Unavailable SAMSA, MARYURI Consulting Unavailable HOY ., DR VERDIN Primary Care Unavailable SAMSA, MARYURI Attending Unavailable SAMSA, MARYURI Admitting Unavailable HOY ., DR VERDIN Consulting Unavailable HOY ., DR VERDIN Primary Care Unavailable HOY ., DR VERDIN Attending Unavailable HOY ., DR VERDIN Admitting Unavailable MORENO, WINCHA Consulting Unavailable ELTAHAWY, DR CHACON Consulting Unavailable HOY ., DR VERDIN Primary Care Unavailable ELTAHAWY, DR CHACON Attending Unavailable ELTAHAWY, DR CHACON Admitting Unavailable ELTAHAWY, INES Attending Unavailable ELTAHAWY, INES Attending Unavailable GEORGE, CECI Attending Unavailable RAMBASEK, DEBORA Lynch Attending Unavailable RAMBASEK, DEBORA Lynch Attending Unavailable RAMBASEK, DEBORA Lynch Referring Unavailable ANDRE PRESCOTT Attending Unavailable RAMBASEK, DEBORA Lynch Attending Unavailable Encounters Encounter Date Encounter Type Care Provider Facility Start: 03-28-2024 End: 03-28-2024 ambulatory DEBORA E RAMBASEK Not Available Start: 02-21-2024 End: 02-21-2024 ambulatory [facility] Start: 02-14-2024 End: 02-14-2024 ambulatory ANDRE PRESCOTT Not Available Start: 11-27-2023 End: 11-27-2023 ambulatory [facility] Start: 11-23-2023 End: 11-23-2023 ambulatory DEBORA E RAMBASEK Not Available Start: 10-09-2023 End: 10-10-2023 ambulatory DEBORA E RAMBASEK Not Available Start: 09-27-2023 End: 09-27-2023 ambulatory DEBORA E RAMBASEK Not Available Start: 05-29-2023 End: 05-29-2023 ambulatory CECI LEE [facility] Start: 03-15-2023 End: 03-16-2023 ambulatory MARYURI HADDAD Facility:[facility] Start: 02-25-2023 End: 02-25-2023 ambulatory ANABELLE Argueta Facility:[facility] Start: 02-23-2023 End: 02-23-2023 ambulatory Yasmine Joaquin Other [employer] Other Start: 02-23-2023 Office outpatient vi sit 15 minutes Yasmine Joaquin [facility] Start: 02-17-2023 End: 02-17-2023 ambulatory Emma Yolanda Other [employer] Other Start: 02-17-2023 Office outpatient vi sit 15 minutes Emma Oropezamond [facility] Start: 01-28-2023 Encounter for genera l adult medical examination without abnormal findings DR LAMBERT MACK . [facility] Start: 01-21-2023 End: 01-22-[address] LAMBERT MACK . Facility:[facility] Start: 01-21-2023 End: 01-22-2023 Encounter for general adult medical examination without abnormal findings DR LAMBERT MACK . Facility:[facility] Start: 12-26-2022 End: 12-27-2022 ambulatory MARYURI HADDAD Facility:[facility] Start: 10-01-2022 End: 10-02-[address] INES SERNA Facility:[facility] Start: 09-02-2022 End: 10-12-[address] INES SERNA Facility:[facility] Start: 07-27-2022 End: 07-28-2022 ambulatory MARYURI HADDAD Facility:[facility] Start: 06-30-2022 End: 07-01-2022 ambulatory MARYURI HADDAD Facility:[facility] Start: 06-30-2022 End: 07-01-2022 ambulatory BRANDAN HOWARD Facility:[facility] Start: 05-30-2022 End: 05-31-[address] LAMBERT MACK . Facility:[facility] Start: 04-18-2022 End: 04-19-[address] LAMBERT MACK . Facility:[facility] Start: 04-09-2022 End: 04-10-[address] LAMBERT MACK . Facility:[facility] Start: 03-24-2022 End: 03-25-[address] LAMBERT MACK . Facility:[facility] Start: 02-15-2022 End: 02-15-2022 ambulatory Dimple Milligan Other [facility] [employer] Other Start: 02-15-2022 Office outpatient vi sit 15 minutes Dimple Milligan [facility] Medications Current Medications Medication Drug Class(es) Dates [...] Corticosteroid Start: 02-17-2023 Kenalog-40 Feb, 40 mg Payers Date Payer Category Payer Unknown [id number] 2.16.84 [id number] 1965 Unknown [id number] 2.16.84 [id number] 1965 Unknown [id number] 2.16.84 0.1.507318.3.579.2.593 1965 Unknown [id number] 2.16.84 0.1.791441.3.579.2.593 1965 Unknown [id number] 2.16.84 0.1.171502.3.579.2.593 1965 Unknown [id number] 2.16.84 0.1.805750.3.579.2.593 1965 Unknown [id number] 2.16.84 0.1.463322.3.579.2.593 1965 Unknown [id number] 2.16.84 0.1.675708.3.579.2.593 1965 Unknown [id number] 2.16.84 0.1.081500.3.579.2.593 1965 Unknown [id number] 2.16.84 0.1.039163.3.579.2.593 1965 Unknown [id number] 2.16.84 0.1.730701.3.579.2.593 1965 Unknown [id number] 2.16.84 0.1.880166.3.579.2.593 1965 Unknown [id number] 2.16.84 0.1.943564.3.579.2.593 1965 Unknown [id number] 2.16.84 0.1.108342.3.579.2.1259 1965 Unknown [id number] 2.16.84 0.1.355410.3.579.2.1259 1965 Unknown [id number] 2.16.84 0.1.209015.3.579.2.1259 1965 Unknown [id number] 2.16.840 .1.711762.3.579.2.1259 1965 Unknown [id number] 2.16.840 .1.641786.3.579.2.1259 1959 Unknown [id number] 2. [id number] Problems Active Problems Problem Classification Problem Date Documented Date Episodic/Chronic Allergic reactions (7 sources) Urticaria, unspecified; Translations: [Idiopathic urticaria] Onset: 02-25-2023 Episodic Asthma (1 source) Moderate persistent asthma, uncomplicated; Translations: [MOD PERSISTENT ASTHMA UNCOMPLICATED] Onset: 07-01-2022 Chronic Coronary atherosclerosis and other heart disease (7 sources) Atherosclerotic heart disease of [place] coronary artery without angina pectoris; Translations: [Coronary [...] 03-15-2023 Episodic Other aftercare (1 source) 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 Navneet Godwin Results Test Name Value Interpretation Reference Range Facility 36on 02-22-2024 36 Regarding lab result s from 02/21/2024: MD Karon Crain MA Great. Please let the patient know his serum creatinine is back to normal. No changes in medications. Thanks LM on VM. [facility] Office Visiton 02-21-2024 Follow-up visit [id number] Jada Grigsby 1965 M [facility] Provider Department Center 02/21/2024 INES MACEDO Family History Problem Relation Age of Onset Heart failure Father Coronary artery disease Father Family Status - Relation Status Age at Father Level of Service:43768 MT OFFICE/OUTPATIENT ESTABLISHED MOD MDM 30 MIN [facility] Office Visiton 11-27-2023 Follow-up visit [id number] Jada Grigsby 1965 [facility] Provider Department Center 11/27/2023 INES MACEDO Family History Problem Relation Age of Onset Heart failure Father Coronary artery disease Father Family Status - Relation Status Age at Father Level of Service:19599 MT OFFICE/OUTPATIENT ESTABLISHED MOD MDM 30 MIN [facility] Orders Onlyon 06-21-2023 Orders Only [id number] Jada Grigsby 1965 [facility] Provider Department Center 06/21/2023 ATUL DIETZ Family History Problem Relation Age of Onset Heart failure Father Coronary artery disease Father Family Status - Relation Status Age at Father [facility] 36on 06-19-2023 36 Please advise BP are higher than recommended targets. He can double on his Lisinopril and get BMP in 1 week after changes. Please send script and lab order. Thanks. [facility] Office Visiton 05-29-2023 Follow-up visit [id number] Jada Grigsby 1965 [facility] Provider Department Center 05/29/2023 [id number] [facility] Family History Problem Relation Age of Onset Heart failure Father Coronary artery disease Father Family Status - Relation Status Age at Father Level of Service:72560 MT OFFICE/OUTPATIENT ESTABLISHED LOW MDM 20-29 MIN Normal [facility] THEOPHYLLINEon 03-15-2023 THEOPHYLLINE 5.9 ug/mL Critically low 10.0-20.0 [facility] Comment on above: Performed By: #### T ALAN #### [facility] [address] [address] [address] Navneet Godwin CHUCKIE by IFAon 01-23-2023 Antinuclear Antibodies, IFA Positive Abnormal [facility] Comment on above: Result Comment: Nega tive <1:80 Borderline 1:80 Positive >1:80 Performed By: #### C BC #### [facility] [address] [address] [address] Navneet Godwin Centriole Pattern Normal [facility] Comment on above: Performed By: #### C BC #### [facility] [address] [address] [address] Navneet Godwin Centromere Pattern Normal [facility] Comment on above: Performed By: #### C BC #### [facility] [address] [address] [address] Navneet Godwin Homogeneous Pattern 1:80 Normal [facility] Comment on above: Result Comment: ICAP nomenclature: AC-1 Performed By: #### C BC #### [facility] [address] [address] [address] Navneet Godwin Midbody Pattern Normal [facility] Comment on above: Performed By: #### C BC #### [facility] [address] [address] [address] Navneet Godwin Note: Comment Normal [facility] Comment on above: Result Comment: For more [...] titers Nucleosomes, Histones Drug-induced SLE Speckled Sm, COFFIN MAKER, SCL-70, SLE,MCTD,PSS (diffuse form), SS-A/SS-B Sjogrens Nucleolar SCL-70, PM-1/SCL High titers Scleroderma, PM/DM Centromere Centromere PSS (limited form) w/Crest syndrome variable Nuclear Dot Sp100,t30-wackum Primary Biliary Cirrhosis Nuclear GP210, Primary Biliary Cirrhosis Membrane ofelia A,B,C Performed By: #### C BC #### [facility] [address] [place] [address] Dr. Navneet Godwin Nuclear Dot Pattern Normal [facility] Comment on above: Performed By: #### C BC #### [facility] [address] [place] [address] Dr. Navneet Godwin Nuclear Membrane Pattern Normal [facility] Comment on above: Performed By: #### C BC #### [facility] [address] [place] [address] Dr. Navneet Godwin Nucleolar Pattern Normal [facility] Comment on above: Performed By: #### C BC #### [facility] [address] [place] [address] Dr. Navneet Godwin PCNA Pattern Normal [facility] Comment on above: Performed By: #### C BC #### [facility] [address] [address] [address] Navneet Godwin Speckled Pattern Normal [facility] Comment on above: Performed By: #### C BC #### [facility] [address] [place] [address] Dr. Navneet Godwin Spindle Apparatus Pattern Normal [facility] Comment on above: Performed By: #### C BC #### [facility] [address] [place] [address] Dr. Navneet Godwin INSULINon 01-23-2023 Insulin 50.9 uIU/mL Critically high 2.6-24.9 [facility] Comment on above: Performed By: #### I NSULIN #### [facility] [address] [place] [address] Dr. Navneet Godwin ANTISTREPTOLYSIN O AB (ASO)o n 01-22-2023 Antistreptolysin O Ab 55.6 IU/mL Normal 0.0-200.0 [facility] Comment on above: Performed By: #### H GB #### [facility] [address] [address] [address] Navneet Godwin RHEUMATOID FACTORon 01-23-20 RA Latex Turbid. <10.0 Normal <14.0 [facility] Comment on above: Performed By: #### H GB #### [facility] [address] [address] [address] Navneet Godwin CBC AUTO DIFFon 01-21-2023 BASO # 0.0 103/ul Normal 0.0-0.1 [facility] Comment on above: Performed By: #### C BC #### [facility] [address] [address] [address] Navneet Godwin Basophils/100 WBC (Bld) 0.8 % Normal 0.2-2.0 [facility] Comment on above: Performed By: #### C BC #### [facility] [address] [place] [address] Dr. Navneet Godwin EO # 0.1 103/ul Normal 0.0-0.7 [facility] Comment on above: Performed By: #### C BC #### [facility] [address] [place] [address] Dr. Navneet Godwin Eosinophils/100 WBC (Bld) 2.1 % Normal 0.9-7.0 [facility] Comment on above: Performed By: #### C BC #### [facility] [address] [address] [address] Navneet Godwin Erythrocyte distribution width (RBC) [Ratio] 13.7 % Normal 11.0-15.0 [facility] Comment on above: Performed By: #### C BC #### [facility] [address] [place] [address] Dr. Navneet Godwin Hematocrit (Bld) [Volume fraction] 37.6 % Critically low 42.0-54.0 [facility] Comment on above: Performed By: #### C BC #### [facility] [address] [place] [address] Dr. Navneet Godwin Hemoglobin (Bld) [Mass/Vol] 12.7 g/dL Critically low 14.0-18.0 [facility] Comment on above: Performed By: #### C BC #### [facility] [address] [place] [address] Dr. Navneet Godwin IG # 0.01 10e3/ul Normal 0.00-0.03 [facility] Comment on above: Performed By: #### C BC #### [facility] [address] [place] [address] Dr. Navneet Godwin IG % 0.2 % Normal 0.0-0.5 [facility] Comment on above: Performed By: #### C BC #### [facility] [address] [place] [address] Dr. Navneet Godwin LYMPH # 1.8 103/ul Normal 1.2-3.8 [facility] Comment on above: Performed By: #### C BC #### [facility] [address] [place] [address] Dr. Navneet Godwin Lymphocytes/100 WBC (Bld) 33.1 % Normal 20.5-60.0 [facility] Comment on above: Performed By: #### C BC #### [facility] [address] [place] [address] Dr. Navneet Godwin MANUAL DIFF REQ NO Normal [facility] Comment on above: Performed By: #### C BC #### [facility] [address] [place] [address] Dr. Navneet Godwin MCH (RBC) [Entitic mass] 29.4 pg Normal 25.9-34.0 [facility] Comment on above: Performed By: #### C BC #### [facility] [address] [place] [address] Dr. Navneet Godwin MCHC (RBC) [Mass/Vol] 33.8 g/dL Normal 29.9-35.2 [facility] Comment on above: Performed By: #### C BC #### [facility] [address] [place] [address] Dr. Navneet Godwin MCV (RBC) [Entitic vol] 87.0 fL Normal 80.0-94.0 [facility] Comment on above: Performed By: #### C BC #### [facility] [address] [address] [address] Navneet Godwin MONO # 0.4 103/ul Normal 0.3-0.8 [facility] Comment on above: Performed By: #### C BC #### [facility] [address] [address] [address] Navneet Godwin Monocytes/100 WBC (Bld) 8.1 % Normal 1.7-12.0 [facility] Comment on above: Performed By: #### C BC #### [facility] [address] [place] [address] Dr. Navneet Godwin NEUT # 2.9 103/ul Normal 1.4-6.5 [facility] Comment on above: Performed By: #### C BC #### [facility] [address] [place] [address] Dr. Navneet Godwin Neutrophils/100 WBC (Bld) 55.7 % Normal 43.0-75.0 [facility] Comment on above: Performed By: #### C BC #### [facility] [address] [place] [address] Dr. Navneet Godwin Platelet mean volume (Bld) [Entitic vol] 10.6 fL Normal 9.5-13.5 [facility] Comment on above: Performed By: #### C BC #### [facility] [address] [place] [address] Dr. Navneet Godwin PLT 236 103/ul Normal 150-450 [facility] Comment on above: Performed By: #### C BC #### [facility] [address] [place] [address] Dr. Navneet Godwin RBC 4.32 106/ul Critically low 4.70-6.[address] [facility] Comment on above: Performed By: #### C BC #### [facility] [address] [place] [address] Dr. Navneet Godwin WBC 5.3 103/ul Normal 4.0-11.0 [facility] Comment on above: Performed By: #### C BC #### [facility] [address] [address] [address] Navneet Godwin CRPon 01-21-2023 CRP [Mass/Vol] mg/L Normal <=1.0 [facility] Comment on above: Performed By: #### H GB #### [facility] [address] [address] [address] Navneet Godwin FREE THYROXINE INDEX T7on FTI 2.59 Normal 1.30-4.50 [facility] Comment on above: Performed By: #### C BC #### [facility] [address] [address] [address] Navneet Godwin T3U 32.0 % Critically low 33.0-40.0 [facility] Comment on above: Performed By: #### C BC #### [facility] [address] [address] [address] Navneet Godwin T4 [Mass/Vol] 8.10 ug/dL Normal 4.50-12.10 [facility] Comment on above: Performed By: #### C BC #### [facility] [address] [address] [address] Navneet Godwin GLYCOHEMOGLOBIN A1Con 2022 ADA RECOMMENDATION SEE BELOW Normal [facility] Comment on above: Result Comment: ADA RECOMMENDED LIMIT 4.0 - 6.0 ADA THERAPEUTIC TARGET < 7.0 ACTION SUGGESTED > 7.0 Performed By: #### H GB #### [facility] [address] [address] [address] Navneet Godwin Glucose [Mass/Vol] 126 mg/dL Normal [facility] Comment on above: Performed By: #### H GB #### [facility] [address] [address] [address] Navneet Godwin HbA1c (Bld) [Mass fraction] 6.0 % Normal 4.5-6.2 [facility] Comment on above: Performed By: #### H GB #### [facility] [address] [address] [address] Navneet Godwin LIPID PROFILEon 01-21-2023 CHOL-HDL RATIO NORM SEE BELOW Normal [facility] Comment on above: Result Comment: 3.3 - 4.4 LOW RISK 4.4 - 7.1 AVERAGE RISK 7.1 - 11.0 MODERATE RISK >11.0 HIGH RISK Performed By: #### C BC #### [facility] [address] [place] [address] Dr. Navneet Godwin Cholesterol [Mass/Vol] 96 mg/dL Normal <=200 [facility] Comment on above: Performed By: #### C BC #### [facility] [address] [address] [address] Navneet Godwin Cholesterol in HDL [Mass/Vol] 45 mg/dL Normal 40-60 [facility] Comment on above: Performed By: #### C BC #### [facility] [address] [place] [address] Dr. Navneet Godwin Cholesterol in LDL [Mass/Vol] 37.2 mg/dL Normal [facility] Comment on above: Performed By: #### C BC #### [facility] [address] [place] [address] Dr. Navneet Godwin Cholesterol.total/C holesterol in HDL [Mass ratio] 2.1 {ratio} Normal [facility] Comment on above: Performed By: #### C BC #### [facility] [address] [place] [address] Dr. Navneet Godwin HDL NORMAL > or = 60 mg/dl - LO W CARDIOVASCULAR RISK <40 mg/dl - HIGH CARDIOVASCULAR RISK Normal [facility] Comment on above: Performed By: #### C BC #### [facility] [address] [place] [address] Dr. Navneet Godwin LDL CALC NORMAL SEE BELOW Normal [facility] Comment on above: Result Comment: <100 mg/dl OPTIMAL 100 - 129 mg/dl NEAR OR ABOVE OPTIMAL 130 - 159 mg/dl BORDERLINE HIGH 160 - 189 mg/dl HIGH >190 mg/dl VERY HIGH Performed By: #### C BC #### [facility] [address] [place] [address] Dr. Navneet Godwin Triglyceride [Mass/Vol] 69 mg/dL Normal <=150 [facility] Comment on above: Performed By: #### C BC #### [facility] [address] [place] [address] Dr. Navneet Godwin VLDL CALC 13.8 mg/dL Normal [facility] Comment on above: Performed By: #### C BC #### [facility] [address] [place] [address] Dr. Navneet Godwin OCC BLD IMMUNO SCREENon 01-04 OCCULT BLOOD Negative Normal NEGATIVE [facility] Comment on above: Performed By: #### O BSCRN #### [facility] [address] [place] [address] Dr. Navneet Godwin PROF 14(COMP METB)on 023 Albumin [Mass/Vol] 4.1 g/dL Normal 3.4-5.0 [facility] Comment on above: Performed By: #### C BC #### [facility] [address] [place] [address] Dr. Navneet Godwin Albumin/Globulin [Mass ratio] 1.4 {ratio} Normal [facility] Comment on above: Performed By: #### C BC #### [facility] [address] [place] [address] Dr. Navneet Godwin ALP [Catalytic activity/Vol] 40 U/L Critically low 46-116 [facility] Comment on above: Performed By: #### C BC #### [facility] [address] [place] [address] Dr. Navneet Godwin ALT [Catalytic activity/Vol] 33 U/L Normal 16-63 [facility] Comment on above: Performed By: #### C BC #### [facility] [address] [place] [address] Dr. Navneet Godwin Anion gap [Moles/Vol] 14.6 mmol/L Normal [facility] Comment on above: Performed By: #### C BC #### [facility] [address] [place] [address] Dr. Navneet Godwin AST [Catalytic activity/Vol] 33 U/L Normal 15-37 [facility] Comment on above: Performed By: #### C BC #### [facility] [address] [place] [address] Dr. Navneet Godwin Bilirubin [Mass/Vol] 0.4 mg/dL Normal 0.2-1.0 [facility] Comment on above: Performed By: #### C BC #### [facility] [address] [address] [address] Navneet Godwin Calcium [Mass/Vol] 9.2 mg/dL Normal 8.5-10.1 [facility] Comment on above: Performed By: #### C BC #### [facility] [address] [address] [address] Navneet Godwin Chloride [Moles/Vol] 109 mmol/L Critically high 98-107 [facility] Comment on above: Performed By: #### C BC #### [facility] [address] [address] [address] Navneet Godwin CO2 [Moles/Vol] 23.1 mmol/L Normal 21.0-32.0 [facility] Comment on above: Performed By: #### C BC #### [facility] [address] [address] [address] Navneet Godwin Creatinine [Mass/Vol] 1.12 mg/dL Normal 0.70-1.30 [facility] Comment on above: Performed By: #### C BC #### [facility] [address] [place] [address] Dr. Navneet Godwin EGFR-AF MAURITIAN >60 Normal >=60 [facility] Comment on above: Performed By: #### C BC #### [facility] [address] [address] [address] Navneet Godwin EGFR-NON AF MAURITIAN >60 Normal >=60 [facility] Comment on above: Performed By: #### C BC #### [facility] [address] [address] [address] Navneet Godwin Globulin (S) [Mass/Vol] 2.9 g/dL Normal [facility] Comment on above: Performed By: #### C BC #### [facility] [address] [address] [address] Navneet Godwin Glucose [Mass/Vol] 109 mg/dL Critically high 74-106 [facility] Comment on above: Performed By: #### C BC #### [facility] [address] [address] [address] Navneet Godwin Potassium [Moles/Vol] 3.7 mmol/L Normal 3.5-5.1 [facility] Comment on above: Performed By: #### C BC #### [facility] [facility] [address] [address] [address] Navneet Godwin Protein [Mass/Vol] 7.0 g/dL Normal 6.4-8.2 [facility] Comment on above: Performed By: #### C BC #### [facility] [address] [address] [address] Navneet Godwin Sodium [Moles/Vol] 143 mmol/L Normal 136-145 [facility] Comment on above: Performed By: #### C BC #### [facility] [address] [place] [address] Dr. Navneet Godwin Urea nitrogen [Mass/Vol] 18.0 mg/dL Normal 7.0-18.0 [facility] Comment on above: Performed By: #### C BC #### [facility] [address] [place] [address] Dr. Navneet Godwin Urea nitrogen/Creatinine [Mass ratio] 16.1 mg/mg Normal [facility] Comment on above: Performed By: #### C BC #### [facility] [address] [place] [address] Dr. Navneet Godwin TSHon 01-21-2023 TSH 1.912 uIU/mL Normal 0.358-3.740 [facility] Comment on above: Performed By: #### H GB #### [facility] [address] [place] [address] Dr. Navneet Godwin URIC ACID SERUMon 01-21-2023 Urate [Mass/Vol] 6.9 mg/dL Normal 3.5-7.2 [facility] Comment on above: Performed By: #### H GB #### [facility] [address] [place] [address] Dr. Navneet Godwin THEOPHYLLINEon 12-26-2022 THEOPHYLLINE 5.3 ug/mL Critically low 10.0-20.0 [facility] Comment on above: Performed By: #### C BC #### [facility] [address] [address] [address] Navneet Godwin LIPID PROFILEon 10-01-2022 CHOL-HDL RATIO NORM SEE BELOW Normal [facility] Comment on above: Result Comment: 3.3 - 4.4 LOW RISK 4.4 - 7.1 AVERAGE RISK 7.1 - 11.0 MODERATE RISK >11.0 HIGH RISK Performed By: #### L IPID, CMP #### [facility] [address] [address] [address] Navneet Godwin Cholesterol [Mass/Vol] 92 mg/dL Normal <=200 [facility] Comment on above: Performed By: #### L IPID, CMP #### [facility] [address] [address] [address] Navneet Godwin Cholesterol in HDL [Mass/Vol] 40 mg/dL Normal 40-60 [facility] Comment on above: Performed By: #### L IPID, CMP #### [facility] [address] [address] [address] Navneet Godwin Cholesterol in LDL [Mass/Vol] 33.2 mg/dL Normal [facility] Comment on above: Performed By: #### L IPID, CMP #### [facility] [address] [address] [address] Navneet Godwin Cholesterol.total/C holesterol in HDL [Mass ratio] 2.3 {ratio} Normal [facility] Comment on above: Performed By: #### L IPID, CMP #### [facility] [address] [address] [address] Navneet Godwin HDL NORMAL > or = 60 mg/dl - LO W CARDIOVASCULAR RISK <40 mg/dl - HIGH CARDIOVASCULAR RISK Normal [facility] Comment on above: Performed By: #### L IPID, CMP #### [facility] [address] [address] [address] Navneet Godwin LDL CALC NORMAL SEE BELOW Normal [facility] Comment on above: Result Comment: <100 mg/dl OPTIMAL 100 - 129 mg/dl NEAR OR ABOVE OPTIMAL 130 - 159 mg/dl BORDERLINE HIGH 160 - 189 mg/dl HIGH >190 mg/dl VERY HIGH Performed By: #### L IPID, CMP #### [facility] [address] [address] [address] Navneet Gowdin Triglyceride [Mass/Vol] 94 mg/dL Normal <=150 [facility] Comment on above: Performed By: #### L IPID, CMP #### [facility] [address] [address] [address] Navneet Godwin VLDL CALC 18.8 mg/dL Normal [facility] Comment on above: Performed By: #### L IPID, CMP #### [facility] [address] [address] [address] Navneet Godwin PROF 14(COMP METB)on 022 Albumin [Mass/Vol] 3.6 g/dL Normal 3.4-5.0 [facility] Comment on above: Performed By: #### L IPID, CMP #### [facility] [address] [place] [address] Dr. Navneet Godwin Albumin/Globulin [Mass ratio] 1.2 {ratio} Normal [facility] Comment on above: Performed By: #### L IPID, CMP #### [facility] [address] [place] [address] Dr. Navneet Godwin ALP [Catalytic activity/Vol] 45 U/L Critically low 46-116 [facility] Comment on above: Performed By: #### L IPID, CMP #### [facility] [address] [place] [address] Dr. Navneet Godwin ALT [Catalytic activity/Vol] 25 U/L Normal 16-63 [facility] Comment on above: Performed By: #### L IPID, CMP #### [facility] [address] [place] [address] Dr. Navneet Godwin Anion gap [Moles/Vol] 13.5 mmol/L Normal [facility] Comment on above: Performed By: #### L IPID, CMP #### [facility] [address] [address] [address] Navneet Godwin AST [Catalytic activity/Vol] 37 U/L Normal 15-37 [facility] Comment on above: Performed By: #### L IPID, CMP #### [facility] [address] [address] [address] Navneet Godwin Bilirubin [Mass/Vol] 0.4 mg/dL Normal 0.2-1.0 [facility] Comment on above: Performed By: #### L IPID, CMP #### [facility] [address] [address] [address] Navneet Godwin Calcium [Mass/Vol] 8.9 mg/dL Normal 8.5-10.1 [facility] Comment on above: Performed By: #### L IPID, CMP #### [facility] [address] [place] [address] Dr. Navneet Godwin Chloride [Moles/Vol] 109 mmol/L Critically high 98-107 [facility] Comment on above: Performed By: #### L IPID, CMP #### [facility] [address] [place] [address] Dr. Navneet Godwin CO2 [Moles/Vol] 25.3 mmol/L Normal 21.0-32.0 [facility] Comment on above: Performed By: #### L IPID, CMP #### [facility] [address] [place] [address] Dr. Navneet Godwin Creatinine [Mass/Vol] 1.07 mg/dL Normal 0.70-1.30 [facility] Comment on above: Performed By: #### L IPID, CMP #### [facility] [address] [place] [address] Dr. Navneet Godwin EGFR-AF MAURITIAN >60 Normal >=60 [facility] Comment on above: Performed By: #### L IPID, CMP #### [facility] [address] [place] [address] Dr. Navneet Godwin EGFR-NON AF MAURITIAN >60 Normal >=60 [facility] Comment on above: Performed By: #### L IPID, CMP #### [facility] [address] [address] [address] Navneet Godwin Globulin (S) [Mass/Vol] 3.1 g/dL Normal [facility] Comment on above: Performed By: #### L IPID, CMP #### [facility] [address] [address] [address] Navneet Godwin Glucose [Mass/Vol] 115 mg/dL Critically high 74-106 [facility] Comment on above: Performed By: #### L IPID, CMP #### [facility] [address] [address] [address] Navneet Godwin Potassium [Moles/Vol] 3.8 mmol/L Normal 3.5-5.1 [facility] Comment on above: Performed By: #### L IPID, CMP #### [facility] [address] [place] [address] Dr. Navneet Godwin Protein [Mass/Vol] 6.7 g/dL Normal 6.4-8.2 [facility] Comment on above: Performed By: #### L IPID, CMP #### [facility] [address] [place] [address] Dr. Navneet Godwin Sodium [Moles/Vol] 144 mmol/L Normal 136-145 [facility] Comment on above: Performed By: #### L IPID, CMP #### [facility] [address] [place] [address] Dr. Navneet Godwin Urea nitrogen [Mass/Vol] 21.0 mg/dL Critically high 7.0-18.0 [facility] Comment on above: Performed By: #### L IPID, CMP #### [facility] [address] [place] [address] Dr. Navneet Godwin Urea nitrogen/Creatinine [Mass ratio] 19.6 mg/mg Normal [facility] Comment on above: Performed By: #### L IPID, CMP #### [facility] [address] [place] [address] Dr. Navneet Godwin ASPERGILLUS AB, QUANTITATIVE DIDon 07-08-2022 Aspergillus flavus Negative Normal Neg:<1:1 [facility] Comment on above: Performed By: #### C BC #### [facility] [address] [address] [address] Navneet Godwin Aspergillus fumigatus Negative Normal Neg:<1:1 [facility] Comment on above: Performed By: #### C BC #### [facility] [address] [place] [address] Dr. Navneet Godwin Aspergillus niger Negative Normal Neg:<1:1 [facility] Comment on above: Performed By: #### C BC #### [facility] [address] [place] [address] Dr. Navneet Godwin IMMUNOGLOBULIN E, TOTALon Immunoglobulin E, Total 102 IU/mL Normal 6-495 [facility] Comment on above: Performed By: #### C BC #### [facility] [address] [place] [address] Dr. Navneet Godwin ANTI NEUTROPHIL CYTOPLASMIC AB (ANCA) PRon 07-05-2022 Anti-MPO Antibodies <0.2 Normal 0.0-0.9 [facility] Comment on above: Result Comment: Perf ormed at: BN Performed By: #### H GB #### [facility] [address] [place] [address] Dr. Navneet Godwin Anti-PR3 Antibodies <0.2 Normal 0.0-0.9 [facility] Comment on above: Result Comment: Perf ormed at: BN Performed By: #### H GB #### [facility] [address] [place] [address] Dr. Navneet oGdwin Atypical pANCA <1:20 Normal Neg:<1:20 [facility] Comment on above: Result Comment: The atypical pANCA pattern has been observed in a significant percentage of patients with ulcerative colitis, primary sclerosing cholangitis and autoimmune hepatitis. Performed at: CB Performed By: #### H GB #### [facility] [address] [place] [address] Dr. Navneet Godwin Cytoplasmic (C-ANCA) <1:20 Normal Neg:<1:20 [facility] Comment on above: Result Comment: Perf ormed at: CB Performed By: #### H GB #### [facility] [address] [place] [address] Dr. Navneet Godwin Perinuclear (P-ANCA) <1:20 Normal Neg:<1:20 [facility] Comment on above: Result Comment: The presence of positive fluorescence exhibiting P-ANCA or C-ANCA patterns alone is not specific for the diagnosis of [place]'s Granulomatosis (WG) or microscopic polyangiitis. Decisions about treatment should not be based solely on ANCA IFA results. The [employer] ANCA [employer] Consensus recommends follow up testing of positive sera with both MT-3 and MPO-ANCA enzyme immunoassays. As many as 5% serum samples are positive only by EIA. Ref. AM J Clin Pathol 1999;111:507-513. Performed at: CB Performed By: #### H GB #### [facility] [address] [place] [address] Dr. Navneet Godwin CBC AUTO DIFFon 06-30-2022 BASO # 0.0 103/ul Normal 0.0-0.1 [facility] Comment on above: Performed By: #### C BC #### [facility] [address] [place] [address] Dr. Navneet Godwin Basophils/100 WBC (Bld) 0.7 % Normal 0.2-2.0 [facility] Comment on above: Performed By: #### C BC #### [facility] [address] [place] [address] Dr. Navneet Godwin EO # 0.1 103/ul Normal 0.0-0.7 [facility] Comment on above: Performed By: #### C BC #### [facility] [address] [place] [address] Dr. Navneet Godwin Eosinophils/100 WBC (Bld) 1.9 % Normal 0.9-7.0 [facility] Comment on above: Performed By: #### C BC #### [facility] [address] [place] [address] Dr. Navneet Godwin Erythrocyte distribution width (RBC) [Ratio] 12.5 % Normal 11.0-15.0 [facility] Comment on above: Performed By: #### C BC #### [facility] [address] [place] [address] Dr. Navneet Godwin Hematocrit (Bld) [Volume fraction] 38.6 % Critically low 42.0-54.0 [facility] Comment on above: Performed By: #### C BC #### [facility] [address] [place] [address] Dr. Navneet Godwin Hemoglobin (Bld) [Mass/Vol] 12.9 g/dL Critically low 14.0-18.0 [facility] Comment on above: Performed By: #### C BC #### [facility] [address] [place] [address] Dr. Navneet Godwin IG # 0.01 10e3/ul Normal 0.00-0.03 [facility] Comment on above: Performed By: #### C BC #### [facility] [address] [place] [address] Dr. Navneet Godwin IG % 0.2 % Normal 0.0-0.5 [facility] Comment on above: Performed By: #### C BC #### [facility] [address] [place] [address] Dr. Navneet Godwin LYMPH # 2.4 103/ul Normal 1.2-3.8 [facility] Comment on above: Performed By: #### C BC #### [facility] [address] [place] [address] Dr. Navneet Godwin Lymphocytes/100 WBC (Bld) 41.7 % Normal 20.5-60.0 [facility] Comment on above: Performed By: #### C BC #### [facility] [address] [place] [address] Dr. Navneet Godwin MANUAL DIFF REQ NO Normal [facility] Comment on above: Performed By: #### C BC #### [facility] [address] [place] [address] Dr. Navneet Godwin MCH (RBC) [Entitic mass] 29.8 pg Normal 25.9-34.0 [facility] Comment on above: Performed By: #### C BC #### [facility] [address] [place] [address] Dr. Navneet Godwin MCHC (RBC) [Mass/Vol] 33.4 g/dL Normal 29.9-35.2 [facility] Comment on above: Performed By: #### C BC #### [facility] [address] [place] [address] Dr. Navneet Godwin MCV (RBC) [Entitic vol] 89.1 fL Normal 80.0-94.0 [facility] Comment on above: Performed By: #### C BC #### [facility] [address] [place] [address] Dr. Navneet Godwin MONO # 0.6 103/ul Normal 0.3-0.8 [facility] Comment on above: Performed By: #### C BC #### [facility] [address] [place] [address] Dr. Navneet Godwin Monocytes/100 WBC (Bld) 10.5 % Normal 1.7-12.0 [facility] Comment on above: Performed By: #### C BC #### [facility] [address] [place] [address] Dr. Navneet Godwin NEUT # 2.6 103/ul Normal 1.4-6.5 [facility] Comment on above: Performed By: #### C BC #### [facility] [address] [place] [address] Dr. Navneet Godwin Neutrophils/100 WBC (Bld) 45.0 % Normal 43.0-75.0 [facility] Comment on above: Performed By: #### C BC #### [facility] [address] [place] [address] Dr. Navneet Godwin Platelet mean volume (Bld) [Entitic vol] 10.1 fL Normal 9.5-13.5 [facility] Comment on above: Performed By: #### C BC #### [facility] [address] [place] [address] Dr. Navneet Godwin PLT 296 103/ul Normal 150-450 [facility] Comment on above: Performed By: #### C BC #### [facility] [address] [place] [address] Dr. Navneet Godwin RBC 4.33 106/ul Critically low 4.70-6.10 [facility] Comment on above: Performed By: #### C BC #### [facility] [address] [place] [address] Dr. Navneet Godwin WBC 5.8 103/ul Normal 4.0-11.0 [facility] Comment on above: Performed By: #### C BC #### [facility] [address] [place] [address] Dr. Navneet Godwin PROF CHEM 8 (BAS METB)on Anion gap [Moles/Vol] 13.2 mmol/L Normal [facility] Comment on above: Performed By: #### B MP #### [facility] [address] [place] [address] Dr. Navneet Godwin Calcium [Mass/Vol] 9.1 mg/dL Normal 8.5-10.1 [facility] Comment on above: Performed By: #### B MP #### [facility] [address] [place] [address] Dr. Navneet Godwin Chloride [Moles/Vol] 106 mmol/L Normal 98-107 [facility] Comment on above: Performed By: #### B MP #### [facility] [address] [place] [address] Dr. Navneet Godwin CO2 [Moles/Vol] 23.7 mmol/L Normal 21.0-32.0 [facility] Comment on above: Performed By: #### B MP #### [facility] [address] [place] [address] Dr. Navneet Godwin Creatinine [Mass/Vol] 1.06 mg/dL Normal 0.70-1.30 [facility] Comment on above: Performed By: #### B MP #### [facility] [address] [place] [address] Dr. Navneet Godwin EGFR-AF MAURITIAN >60 Normal >=60 [facility] Comment on above: Performed By: #### B MP #### [facility] [address] [place] [address] Dr. Navneet Godwin EGFR-NON AF MAURITIAN >60 Normal >=60 [facility] Comment on above: Performed By: #### B MP #### [facility] [address] [address] [address] Navneet Godwin Glucose [Mass/Vol] 94 mg/dL Normal 74-106 [facility] Comment on above: Performed By: #### B MP #### [facility] [id number] Navneet Godwin Potassium [Moles/Vol] 3.9 mmol/L Normal 3.5-5.1 [facility] Comment on above: Performed By: #### B MP #### [facility] [address] [address] [address] Navneet Godwin Sodium [Moles/Vol] 139 mmol/L Normal 136-145 [facility] Comment on above: Performed By: #### B MP #### [facility] [address] [address] [address] Navneet Godwin Urea nitrogen [Mass/Vol] 17.0 mg/dL Normal 7.0-18.0 [facility] Comment on above: Performed By: #### B MP #### [facility] [id number] Navneet Godwin Urea nitrogen/Creatinine [Mass ratio] 16.0 mg/mg Normal [facility] Comment on above: Performed By: #### B MP #### [facility] [id number] Navneet Godwin XR CHEST 2 Von [...] by: MICKY MORENO Date: 2022-05-30 10:52 Normal [facility] ECHOCARDIO M/2D COMPLETEon 0 6-13-2022 ECHOCARDIO M/2D COMPLETE Patient: PARAS GRIGSBY Exam Date: 04/18/2022 : 1965 Gender:M Ordering : DR LAMBERT MACK . Admission #: [id number] Family : Order #: [id number] CLICK HERE TO VIEW EXAM ECHOCARDIOGRAM REPORT [...] Area(A4C): 16.30 cm2 Left Atrium Systolic Volume(A2C): 26867 mm3 Left Atrium Systolic Volume(A4C): 86103 mm3 Mitral Valve MV E to A [...] Yu M.D. on 04/19/2022 at 18:16 Normal [facility] CTA CHEST WO W CONon 06-06-2 022 CTA CHEST WO W CON EXAMINATION: [...] by: PADMINI WHITE Date: 2022-04-11 07:16 Normal [facility] HEMOGLOBINon 03-24-2022 Hemoglobin (Bld) [Mass/Vol] 13.2 g/dL Critically low 14.0-18.0 [facility] Comment on above: Performed By: #### H GB #### [facility] [address] [place] [address] Dr. Navneet Godwin Progress Note-Physicianon Progress Note-Physician [...] patient tolerated the procedure well. . Normal [facility] Comment on above: Result Comment: Elec tronically Signed By: Sg Thayer Jr, DO\.br\Date and Time Signed: 10/15/19 10:48 EST Coding Summary.on 10-11-2019 Coding Summary. CODING DATE: 019 FINAL [facility] STATUS: Home (Routine DC) PAYOR: [facility] [place] [facility] DESCRIPTION 5361 Level 1 Laparoscopy and Related Services ADMIT DX: REASON FOR VISIT DX: K42.9 Umbilical hernia without obstruction or gangrene FINAL DX: PRINCIPAL: K42.9 Umbilical hernia without obstruction or gangrene SECONDARY: I10 Essential (primary) hypertension J44.9 Chronic obstructive pulmonary disease, unspecified PYMT PROC APC STAT DESCRIPTION DOCTOR NAME DATE 88556 5361 J1 Laparoscopy, surgical, Lee HAMPTON MD 10/07/2019 repair, ventral, umbilical, spigelian or epigastric hernia (includes mesh insertion, when performed); reducible 94017 Transversus abdominis Sg Thayer Jr, DO 10/07/2019 plane (TAP) block (abdominal plane block, rectus sheath block) bilateral; by injections (includes imaging guidance, when performed) XP Separate practitioner, a service that is distinct because it was performed by a different practitioner 96361 Anesthesia for hernia Sg Thayer Jr, DO [...] Gracia Revised Date Saved: 10/11/2019 11:51 am [facility] Progress Note-Physicianon Progress Note-Physician Patient: PARAS [...] All Problems COPD exacerbation / SNOMED CT 056794296 / Confirmed BMI 38.0-38.9,adult / SNOMED CT 364235495 / Confirmed Diabetes / SNOMED CT 213243399 / Confirmed new diagnosis on no meds yet Hypertension / SNOMED CT 7719992300 / Confirmed Hypertensive retinopathy / SNOMED CT 54919288 / Confirmed Umbilical hernia / SNOMED CT 5331344422 / Confirmed Resolved: Kidney stone / SNOMED CT 104416503 Histories Past Medical History: Resolved Kidney stone (371130968): Resolved. Family History: Heart disease Father Leukemia Mother Procedure history: Arthroscopy of knee (548187807). Comments: 09/30/2019 10:32 - Deya Guzman RN and left knee 09/18/2019 11:41 - Jose Ramon Caba RIGHT KNEE Tonsillectomy (471367951). ESWL of kidney (93516817). Arthroscopy of shoulder (052462357). Comments: 09/30/2019 10:33 - Thomas RN, Deya [...] results Radiology results ECG interpretation Condition Plan [place] [employer] (ASA) physical status classification: Class III. Anesthetic Preoperative Plan Anesthesia: General. . Anesthetic plan, risks, benefits, and alternatives discussed with the patient and/or family. Risks discussed: nausea, vomiting, headache, sore throat, dental injury, serious complications. Patient verbalized understanding. Communication: face to face with (patient 5 minutes, Pt educated on the importance of smoking cessation.). [facility] Comment on above: Result Comment: Elec tronically Signed By: Sg Thayer Jr, DO\.br\Date and Time Signed: 10/11/19 08:51 EST Main OR Intraoperative Recor don 10-08-2019 Main OR Intraoperative Record IntraOp Document Type FT Summary Primary Physician: Lee HAMPTON MD Finalized Date/Time: 10/08/19 13:41:00 Pt. Name: PARAS GRIGSBY./Sex: 1965 Male Med Rec #: [id number] Physician: Lee HAMPTON MD Financial #: [id number] Pt. Type: A Room/Bed: 03/06 Admit/Disch: 10/07/19 07:08:00 - 10/07/19 15:10:00 Institution: Case Times FT Entry 1 Patient Times In Room 10/07/19 09:32:00 Out Room 10/07/19 11:43:00 Procedure Times Start 10/07/19 10:05:00 Stop 10/07/19 11:36:00 Anesthesia Times Start 10/07/19 09:32:00 Stop 10/07/19 11:43:00 Block Timeout w/ 10/07/19 09:47:00 Anesthesia Last Modified By: Angelica Israel CST 10/07/19 11:42:42 General Comments: 47- bilateral tap block done by Dr. thayer in OR, while patient under anesthesia and constant vitals taken, Mira Logan RN assisting, area prepped wtih chloraprep and ultrasound used. - barbi rn 1016- robot docked by this RN at patient. - barbi rn 1023- surgeon back to console at this time. - barbi rn 1121- surgeon away from console and rescrubbed. - barbi rn 1122- robot undocked at this time by this RN. - barbi arias 10/08/19 Chart opened to review and send charges J Jhonatan FARLEY Case Attendance FT Entry 1 Entry 2 Entry 3 Case Attendee Jeovany Lester DO, Sg HAMPTON MD, Lee Logan RN, CNOR, Cheyenne Schaffer Role Performed Anesthesiologist of Surgeon - Primary DUMP GROUNDS CHECKER Record Time In 10/07/19 09:32:00 10/07/19 09:32:00 10/07/19 09:32:00 Time Out 10/07/19 11:43:00 10/07/19 11:43:00 10/07/19 11:43:00 Procedure HERNIA REPAIR, ROBOT HERNIA REPAIR, ROBOT HERNIA REPAIR, ROBOT ASSISTED(.) ASSISTED(.) ASSISTED(.) Comments Last Modified By: Harsh RN, Gricelda House RN, Gricelda House RN, Gricelda Jim 10/07/19 11:47:03 10/07/19 11:47:03 10/07/19 11:47:03 Entry 4 Entry 5 Case Attendee Harsh RN, Gricelda Richards CST, Ashely Lynch Role Performed Stopperer Assembler - Primary Scrub - Primary Time In [...] LEWIS, Doreen Pavon RN, CNOR, Cheyenne Schaffer, Gricelda House RN, [place] FAMILY PRACTICE PHYSICIAN, Ashely Lynch Time Out Complete 10/07/19 10:03:00 Outcomes Met? [...] and tissue Entry 1 Skin Integrity Intact, [place], Warm, and Skin Abnormality No Dry Outcomes [...] Head Large, Arm Sled Left, Other/See Comments, [place] Wedge Right Side By Harsh ARIAS, Doreen Ghotra Outcomes Met? Yes RN, RAZOR, Cheyenne Schaffer, Jeovany Lester DO, ALEXIA Woody MD, Lee Wagner Last Modified By: Gricelda House RN 10/07/19 [...] House RN, RN, Emily A Coy RN, Gricelda A 10/07/19 10:27:41 10/07/19 10:27:41 10/07/19 10:27:41 Entry 4 Entry 5 Entry 6 Equipment Type MISTRAL FORCED AIR MONITOR CHARGE SURGERY SONOSITE ULTRASOUND WARMING SYSTEM UNIT[F] [F] UNIT[F] Equipment Number M3 Equipment Setting Outcomes Met? Yes Yes Yes Last Modified By: Gricelda House RN, RN, Gricelda Richards RN 10/07/19 10:27:41 10/07/19 10:27:41 10/07/19 10:27:41 Entry [...] Outcomes Met? Yes Last Modified By: Gricelda oHuse RN 10/07/19 10:28:12 Post-Care Text: The patient if free from signs and symptoms of electrical injury Counts Verification FT Pre-Care Text: Performs required counts Entry 1 Entry 2 Procedure(s) HERNIA REPAIR, ROBOT HERNIA REPAIR, ROBOT ASSISTED(.) ASSISTED(.) Type Initial Final Items Instruments, Sponges, Sponges, Sharps, Sharps, Other/See Other/See Comments Comments Status Correct Correct Time 10/07/19 09:35:00 10/07/19 11:26:00 By Doreen ARIAS, SATISH, Gricelda Self RN, Ann, Maurice FAMILY PRACTICE PHYSICIAN, [place] FAMILY PRACTICE PHYSICIAN, Ashely Lynch Outcomes Met? Yes Yes Last [...] Solution Hair Removal Methods Clipper Site DR NILRenetta USED CLIPPERS ON ABDOMEN By Doreen ARIAS, [...] to transfer/transport General Comments: REPORT GIVEN TO BOOK JOGGER. Cheryl STRINGER RN Dressing/Packing FT Pre-Care Text: [...] Description MESH STEX ROUND 9CM Lot Number [id number] (3.6 ) [SYM9][F] Truss Puller Helper FT-eTutor Catalog ?# SYM9 [F] Size 9cm Expiration Date 11/05/23 Unique Device [id number] Human Readable [id number] Identifier (DEE) Barcode [id number]{10 [id number] Machine Readable [id number] Barcode [id number] Usage Data FT Implant Site Abdomen Implant [...] Type TUBE NASOGASTIC SUMP Location mouth 18FR [[id number]][F] Quantity 1 Inserted By Sg Thayer Jr, [...] Present Upon Arrival No Inserted LF 16FR [[id number]][F] Insertion Date/Time 10/07/19 09:58:00 Urine Residual 125 [...] BLANKET MISTRAL AIR Quantity 1 Aid TORSO [[id number]][F] Fluid/[place] Unit Mistral warming system Setting high/43 Body Site Upper anterior torso Last Modified By: Gricelda House RN 10/07/19 10:32:35 Case Comments Finalized By: Angelica Israel CST Document Signatures Signed By: Gricelda House RN 10/07/19 11:47 Angelica Israel CST 10/08/19 13:40 Normal [facility] History and Physicalon 10-07 History and Physical Patient: PARAS GRIGSBY Age: 53 years Sex: Male : 1965 Associated Diagnoses: None Author: Lee HAMPTON MD Subjective no changes to H & P Normal [facility] Comment on above: Result Comment: Elec tronically Signed By: Lee HAMPTON MD\.br\Date and Time Signed: 10/07/19 09:08 EST Inpatient Patient Summaryon 10-07-2019 Inpatient Patient Summary [facility] Clinical Discharge Instructions PERSON INFORMATION Name: PARAS GRIGSBY PHYSICIANS Admitting Physician: Lee HAMPTON MD Attending Physician: Lee HAMPTON MD PCP: Rebeca LEWIS, Lambert Discharge Diagnosis: Hernia, umbilical Comment: PATIENT EDUCATION INFORMATION Instructions: Post Op Patient Instructions - FT (CUSTOM) Medication Leaflets: Follow up: With: Address: When: Lee HAMPTON [address] [place] [address] Business (1) Within 7 to 10 days MEDICATION LIST Fill New Prescriptions: acetaminophen-hydrocodone (acetaminophen-hydrocodone 325 mg-5 mg oral tablet) 1 tab(s) By Mouth every 4 hours as needed for Pain take with food or milk Comment: Adiel [facility] Main OR PACU I [facility] Main OR PACU I Record PACU Phase I Document Type FT Summary Primary Physician: Lee HAMPTON MD Finalized Date/Time: 10/07/19 12:51:42 Pt. Name: PARAS GRIGSBY/Sex: 1965 Male Med Rec #: [id number] Physician: Lee HAMPTON MD Financial #: [id number] Pt. Type: A Room/Bed: [facility] Admit/Disch: 10/07/19 07:08:33 - Institution: Case [...] By: Jason Chacon RN 10/07/19 12:51 Normal [facility] Main OR PACU II Recordon Main OR PACU II Record PACU Phase II Document Type FT Summary Primary Physician: Lee HAMPTON MD Finalized Date/Time: 10/07/19 17:37:19 Pt. Name: SHANTE GRIGSBYALIVIA Cabrera/Sex: 1965 Male Med Rec #: [id number] Physician: Lee HAMPTON MD Financial #: [id number] Pt. Type: A Room/Bed: Admit/Disch: 10/07/19 07:08:00 - 10/07/19 15:10:00 Institution: [...] By: Karie Fletcher RN 10/07/19 17:37 Normal [facility] Main OR Preoperative Recordo n 10-07-2019 Main OR Preoperative Record PreOp Document Type FT Summary Primary Physician: Lee HAMPTON MD Finalized Date/Time: 10/07/19 10:13:38 Pt. Name: PARAS GRIGSBY/Sex: 1965 Male Med Rec #: [id number] Physician: Lee HAMPTON MD Financial #: [id number] Pt. 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 The [...] fascia was closed with a 0 Vicryl aegqom-jc-asgbf suture. All port sites were infiltrated with [...] condition. Lee Hampton M.D. gls Dictated: 10/07/2019 #[id number] Typed: 10/07/2019 #[id number] cc: Alex Hdz M.D. Normal [facility] Comment on above: Result Comment: Elec tronically Signed By: ALEXIA LEWIS, Lee Whitleybr\Date and Time Signed: 10/07/19 13:50 EST Patient Education - Texton 1 12-08-2018 Patient Education - Text Normal [facility] UA With Cult Reflexon 2018 Bilirubin Ql (U) Negative Normal Negative [facility] Comment on above: Performed By: #### 2 787676, 6972994, 5642550, 34841629, 4657653, 7157434 #### [facility] [address] [place] [address] Clarity (U) CLEAR Normal Clear [facility] Comment on above: Performed By: #### 2 396313, 4068822, 1881953, 33044691, 9169745, 0226901 #### [facility] [address] [place] [address] Color (U) YELLOW Normal Yellow [facility] Comment on above: Performed By: #### 2 183553, 8818865, 8208242, 76928284, 7182687, 4514743 #### [facility] [address] [place] [address] Epithelial cells.squamous LM.HPF (Urine sed) [#/Area] 0-2 Normal 0-2 [facility] Comment on above: Performed By: #### 2 947732, 9661498, 1823835, 13465068, 8471685, 4578636 #### [facility] [address] [place] [address] Glucose Test strip (U) [Mass/Vol] Negative Normal Negative [facility] Comment on above: Performed By: #### 2 318396, 3698628, 7901930, 66825271, 8469959, 3348929 #### [facility] [address] [place] [address] Hemoglobin Ql (U) Negative Normal Negative [facility] Comment on above: Performed By: #### 2 926954, 1709512, 4542413, 92971717, 0517627, 6249560 #### [facility] [address] [place] [address] Ketones (U) [Mass/Vol] Negative Normal Negative [facility] Comment on above: Performed By: #### 2 373853, 7454240, 3571292, 10804384, 3281178, 4928819 #### [facility] [address] [place] [address] [place].plasma/Lith ium.RBC (Bld) [Mass ratio] 0-3 Normal 0-3 [facility] Comment on above: Performed By: #### 2 064407, 1304959, 2370724, 92813286, 2750431, 9319805 #### [facility] [address] [place] [address] Nitrite Ql (U) Negative Normal Negative [facility] Comment on above: Performed By: #### 2 323692, 1413255, 5569597, 23945100, 9668908, 7201828 #### [facility] [address] [place] [address] pH (U) 5.5 [pH] 5.0-9.0 [facility] Comment on above: Performed By: #### 2 624695, 7130386, 4246549, 34770142, 0789663, 2462708 #### [facility] [address] [place] [address] Protein (U) [Mass/Vol] Negative Normal Negative [facility] Comment on above: Performed By: #### 2 421770, 8352026, 5986814, 31848325, 1174627, 3738186 #### [facility] [address] [place] [address] Specific gravity (U) [Rel density] >=1.030 1.005-1.030 [facility] Comment on above: Performed By: #### 2 268160, 3284842, 3914775, 37178409, 5345988, 2888832 #### [facility] [address] [place] [address] UA Spec Desc Villegas Normal [facility] Comment on above: Performed By: #### 2 227876, 5334181, 3027092, 93944540, 2503570, 4269345 #### [facility] [address] [id number] Urobilinogen Qn (U) 0.2 {Nayeli'U}/dL Normal 0.0-1.0 [facility] Comment on above: Performed By: #### 2 543951, 1406834, 1652875, 13253456, 4156070, 6046439 #### [facility] [address] [place] [address] WBC Auto Ql (U) Negative Normal Negative [facility] Comment on above: Performed By: #### 2 939386, 8747544, 6871321, 62901659, 4616225, 7119498 #### [facility] [address] [place] [address] WBC LM.HPF (Urine sed) [#/Area] 0-5 Normal 0-5 [facility] Comment on above: Performed By: #### 2 765442, 0889361, 4069677, 84578040, 3624291, 5108651 #### [facility] [address] [place] [address] Coding Summary.on 10-01-2019 Coding Summary. CODING DATE: 019 FINAL [facility] STATUS: Home (Routine DC) PAYOR: [employer] [place] [employer] DESCRIPTION 5521 Level 1 Imaging without [...] CphT Date Saved: 10/01/2019 06:34 am Normal [facility] XR Chest 2 Viewson 9 XR Chest [...] Akira Shrestha MD Transcribed by: ANKITA Technologist: SUNITA Normal [facility] BUNon 09-30-2019 Urea nitrogen [Mass/Vol] 15 mg/dL Normal 5-21 [facility] Comment on above: Performed By: #### 2 612864, 9319844, 0561653, 66588176, 4273007, 8749426 #### [facility] [address] [place] [address] CBC w/Indiceson 09-30-2019 Erythrocyte distribution width (RBC) [Ratio] 13.2 % Normal 10.9-14.2 [facility] Comment on above: Performed By: #### 2 259257, 9688829, 6562683, 94975939, 2477310, 5643358 #### [facility] [address] [place] [address] Hematocrit (Bld) [Volume fraction] 42.9 % Normal 37.7-49.0 [facility] Comment on above: Performed By: #### 2 845314, 6905371, 3240518, 26980669, 2660806, 4391208 #### [facility] [address] [place] [address] Hemoglobin (Bld) [Mass/Vol] 14.7 g/dL Normal 13.5-17.5 [facility] Comment on above: Performed By: #### 2 792606, 6489079, 6316759, 69332637, 8744967, 3900347 #### [facility] [address] [place] [address] MCH (RBC) [Entitic mass] 31.4 pg Normal 27.0-34.0 [facility] Comment on above: Performed By: #### 2 278794, 7775662, 9326924, 85898898, 7557095, 0274469 #### [facility] [address] [place] [address] MCHC (RBC) [Mass/Vol] 34.2 g/dL Normal 31.4-36.0 [facility] Comment on above: Performed By: #### 2 170467, 8225930, 7446950, 94034895, 0123348, 8332320 #### [facility] [address] [place] [address] MCV (RBC) [Entitic vol] 91.9 fL Normal 80.0-100.0 [facility] Comment on above: Performed By: #### 2 563682, 5456766, 8026970, 92418200, 4608773, 8296045 #### [facility] [address] [place] [address] Platelet mean volume (Bld) [Entitic vol] 9.0 fL Normal 6.4-10.8 [facility] Comment on above: Performed By: #### 2 566109, 9851411, 9153089, 36476218, 1177829, 9192222 #### [facility] [address] [place] [address] Platelets (Bld) [#/Vol] 230.0 E9/L Normal 150.0-500.0 [facility] Comment on above: Performed By: #### 2 552016, 2909843, 7783793, 83143216, 0387059, 6237254 #### [facility] [address] [place] [address] RBC (Bld) [#/Vol] 4.7 E12/L Normal 4.3-5.9 [facility] Comment on above: Performed By: #### 2 657307, 4492177, 8374365, 27032361, 3682700, 6016362 #### [facility] [address] [id number] WBC corrected for nucl RBC Auto (Bld) [#/Vol] 5.7 E9/L Normal 4.0-11.0 [facility] Comment on above: Performed By: #### 2 612300, 3675703, 5044235, 65039446, 0826314, 2003464 #### [facility] [address] [place] [address] Creatinineon 09-30-2019 Creatinine [Mass/Vol] 0.8 mg/dL Normal 0.5-1.3 [facility] Comment on above: Performed By: #### 2 615700, 7487799, 3551503, 78746823, 0141473, 6211481 #### [facility] [address] [id number] Glucoseon 09-30-2019 Glucose [Mass/Vol] 91 mg/dL Normal 55-199 [facility] Comment on above: Performed By: #### 2 196566, 8268574, 7152961, 28086230, 2751053, 1938485 #### [facility] [address] [place] [address] Lyteson 09-30-2019 Anion gap [Moles/Vol] 13 mmol/L Normal 6-16 [facility] Comment on above: Performed By: #### 2 354044, 4264836, 3690431, 93030906, 5660634, 2564866 #### [facility] [address] [place] [address] Chloride [Moles/Vol] 109 mmol/L Normal 101-111 [facility] Comment on above: Performed By: #### 2 656698, 0085987, 8662950, 98586130, 4585318, 2194386 #### [facility] [address] [place] [address] CO2 [Moles/Vol] 22 mmol/L Normal 21-31 [facility] Comment on above: Performed By: #### 2 582149, 4735380, 9488955, 52094911, 2725824, 0150976 #### [facility] [address] [place] [address] Potassium [Moles/Vol] 4.0 mmol/L Normal 3.5-5.3 [facility] Comment on above: Performed By: #### 2 947330, 1776012, 3877350, 77891115, 4286888, 0603209 #### [facility] [address] [place] [address] Sodium [Moles/Vol] 140 mmol/L Normal 135-145 [facility] Comment on above: Performed By: #### 2 384440, 9264871, 4235750, 57827123, 6040377, 3056156 #### [facility] [address] [place] [address] eGFRon 09-30-2019 GFR/1.73 sq M predicted among blacks MDRD (S/P/Bld) [Vol rate/Area] mL/min/{1.73_m2} Normal >=59 [facility] Comment on above: Order Comment: Order added by Discern Expert. Result Comment: eGFR is race adjusted. AA=. Performed By: #### 2 723877, 0670544, 0108610, 98484084, 3230747, 8570651 #### [facility] [address] [place] [address] GFR/1.73 sq M predicted among non-blacks MDRD (S/P/Bld) [Vol rate/Area] mL/min/{1.73_m2} Normal >=59 [facility] Comment on above: Order Comment: Order added by Discern Expert. Result Comment: Copy And Print Associate amy kidney disease could be indicated at eGFR's of less than 60 mL/min/1.73m2. Kidney failure is indicated at less than 15 mL/min/1.73m2. Performed By: #### 2 593737, 3005719, 3856093, 89674006, 1727272, 1816045 #### [facility] [address] [place] [address] Social History Date Type Detail Facility Sex Assigned At [facility] Other Vital Signs Date Time Vital Sign Value Performing Clinician Facility 02-23-2023 16:25-0400 Body height 170.18 cm Yasmine Joaquin Other [facility] Other 02-23-2023 16:25-0400 Body mass index (BMI) [Ratio] 40.72 kg/m2 Yasmine Joaquin Other [facility] Other 02-23-2023 16:25-0400 Body temperature 98.8 [degF] Yasmine Joaquin Other [facility] Other 02-23-2023 16:25-0400 Body weight 117.94 kg Yasmine Joaquin Other [facility] Other 02-23-2023 16:25-0400 Diastolic blood pressure 70 mm[Hg] Yasmine Joaquin Other [facility] Other 02-23-2023 16:25-0400 Respiratory rate 18 /min Yasmine Joaquin Other [facility] Other 02-23-2023 16:25-0400 SaO2% (BldA) [Mass fraction] 97 % Yasmine Joaquin Other [facility] Other 02-23-2023 16:25-0400 Systolic blood pressure 131 mm[Hg] Yasmine Joaquin Other [facility] Other 02-17-2023 10:10-0400 Body height 170.18 cm Emma Guerrero Other [facility] Other 02-17-2023 10:10-0400 Body mass index (BMI) [Ratio] 40.72 kg/m2 Emma Guerrero Other [facility] Other 02-17-2023 10:10-0400 Body temperature 97.7 [degF] Emma Guerrero Other [facility] Other 02-17-2023 10:10-0400 Body weight 117.94 kg Emma Guerrero Other [facility] Other 02-17-2023 10:10-0400 Respiratory rate 18 /min Emma Guerrero Other [facility] Other 02-17-2023 10:10-0400 SaO2% (BldA) [Mass fraction] 94 % Emma Guerrero Other [facility] Other 02-15-2022 18:45-0400 Body height 170.18 cm Dimple Milligan Other [facility] Other 02-15-2022 18:45-0400 Body mass index (BMI) [Ratio] 39.46 kg/m2 Dimple Milligan Other [facility] Other 02-15-2022 18:45-0400 Body temperature 98.2 [degF] Dimple Milligan Other [facility] Other 02-15-2022 18:45-0400 Body weight 114.31 kg Dimple Milligan Other [facility] Other 02-15-2022 18:45-0400 Diastolic blood pressure 93 mm[Hg] Dimple Milligan Other [facility] Other 02-15-2022 18:45-0400 Respiratory rate 18 /min Dimple Milligan Other [facility] Other 02-15-2022 18:45-0400 SaO2% (BldA) [Mass fraction] 96 % Dimple Milligan Other [facility] Other 02-15-2022 18:45-0400 Systolic blood pressure 158 mm[Hg] Dimple Milligan Other [facility] Other Progress note 02-21-2024 Note Date & Type Note Facility 02-21-2024 Note [facility] Cardiology Clinic Note Chief Complaint: Patient [...] history of COPD (chronic obstructive pulmonary disease) ([facility]), Coronary artery disease, Hyperlipidemia, Hypertension, and Sleep [...] Normal cardiac output/cardi (more content not included)... [facility] Progress note 11-27-2023 Note Date & Type Note Facility 11-27-2023 Note [facility] Cardiology Clinic Note Chief Complaint: Patient [...] history of COPD (chronic obstructive pulmonary disease) ([facility]), Coronary artery disease, Hyperlipidemia, Hypertension, and Sleep [...] plus or min (more content not included)... [facility] Progress note 05-29-2023 Note Date & Type Note Facility 05-29-2023 Note Cardiology Clinic No te Subjective Paras Grigsby is a 57 y.o. year old male patient with coronary artery disease status post left circumflex PCI in 2021 and hypertension seen in follow-up. seen for No chief complaint on file. Patient Active Problem List Diagnosis Chest pain CAD in [place] artery Essential hypertension COPD (chronic obstructive pulmonary disease) ([facility]) S/P drug eluting coronary stent placement Hyperplastic [...] 5. Follow-up with Dr. Serna in the [facility] in the next 2 to 4 [...] 04/18/2022 LV syst (more content not included)... [facility] Progress note 05-29-2023 Note Date & Type [...] All other systems reviewed and are negative. [facility] Evaluation note 02-23-2023 Note Date & Type Note Facility 02-23-2023 Evaluation note Encounter Date Diagnosis Assessment Notes Feb, Urticaria (ICD-10 - L50.9) Discussed diagnosis with patient. We will send in Rx of prednisone taper to use as directed. Continue [id number] Benadryl/Zyrtec or Claritin. Advised patient to avoid hot showers/baths encouraged use of cool compresses. Patient needs to follow-up with PCP if this rash does not improve with treatment. Immediate evaluation in ER for signs and symptoms as discussed. Patient verbalizes understanding and is agreeable to treatment plan. [facility] Other Evaluation note 02-17-2023 Note Date & [...] concerns Feb, Acute cough (ICD-10 - R05.1) [facility] Other Evaluation note 02-15-2022 Note Date & Type Note Facility 02-15-2022 Evaluation note Encounter Date Diagnosis Assessment Notes Feb, Infected tooth (ICD-10 - K04.7) Take medications as directed.Highly encourage patient to contact dentist TIARA for further treatment of infection. Do not take OTC medications like ibuprofen with prescriptions [facility] Other History general Narrative - Reported Note Date & Type Note Facility History general Narrative - Reported Type Medical History Benign essential HTN Surgical History knee surgery Surgical History shoulder surgery Surgical History tonsillectomy and adenoidectomy Surgical History wisdom teeth Surgical History vasectomy Hospitalization History see above [facility] Other History general Narrative - Reported Note Date & Type Note Facility History general Narrative - Reported Type Medical History Benign essential HTN Medical History High cholesterol Surgical History knee surgery Surgical History shoulder surgery Surgical History tonsillectomy and adenoidectomy Surgical History wisdom teeth Surgical History vasectomy Surgical History stent 2021 Hospitalization History see above [facility] Other Summary Purpose Family History No Family History Records FoundNo Family History Records FoundNo Family History Records FoundNo Family History Records Found Advance Directives No Advanced Directives Records FoundNo Advanced Directives Records FoundNo Advanced Directives Records FoundNo Advanced Directives Records Found Procedure Findings Note Patient: PARAS GRIGSBY Age: 53 years Sex: Male : 1965 Associated Diagnoses: None Author: Sg Thayer Jr, DO Postoperative Information Post Operative Note: Post Anesthesia Care Unit. Anesthetic utilized: General. Health Status Allergies: Allergic Reactions (Selected) No Known Medication Allergies Problem list: All Problems COPD exacerbation / SNOMED CT 897004086 / Confirmed BMI 38.0-38.9,adult / SNOMED CT 162874730 / Confirmed Diabetes / SNOMED CT 614232859 / Confirmed new diagnosis on no meds yet Hypertension / SNOMED CT 2345130427 / Confirmed Hypertensive retinopathy / SNOMED CT 64611509 / Confirmed Umbilical hernia / SNOMED CT 0525684830 / Confirmed Resolved: Kidney stone / SNOMED CT 272035782 Physical Examination Vital Signs 10/07/2019 14:40 EST [...] section and content) DATE CREATED AUTHOR 02/03/2020 [facility] DATE CREATED AUTHOR AUTHOR'S ORGANIZ ATION 03/19/2023 [facility] DATE CREATED AUTHOR AUTHOR'S ORGANIZ ATION 02/23/2024 [facility] DATE CREATED AUTHOR AUTHOR'S ORGANIZ ATION 03/31/2024 [facility] EPIC REASON FOR VISIT (unrecogniz ed [...] BE BASED ON THE PRIMARY CLINICAL RECORDS. [employer] provides no warranty or guarantee of the accuracy or completeness of information in this document.
[2024-04-16] MEDS: REGADENOSON 0.4 MG/5 ML SYRINGE 0.400000000000000022 MG IV (08:16)
--- NOTE | 2024-04-16 17:27 | P.STRESS_ITS ---
Stress Test Stress Test Requesting physician: Ben Jose Procedure: Lexiscan Cardiolite stress test General Information: Reason for Stress Test: Dyspnea Cardiac History and Risk Factors: Cardiac stent, father had VT. Resting 12 - Lead Electrocardiogram: Rate & rhythm: Sinus bradycardia at a rate of 53. [place]: Normal T-waves: Flattened T-waves across all leads ST-segments: Normal orientation Stress Test: Protocol: Lexiscan protocol was initiated with injection of 0.4mg Lexiscan IV push followed by Cardiolite. Blood pressure: Initial: 104/61, Maximum: 115/68 Rate & rhythm: Patient remained in sinus rhythm during the exercise and recovery portions of the study.? The maximum heart rate was 81, which was 50% of the maximum predicted heart rate. PVCs were noted. ST-segments & T-waves: There were no T-wave changes and no ST-segment changes when compared to the baseline EKG. Patient response/symptoms: There were no symptoms similar to the chief complaint . Interpretation: Normal Lexiscan stress test without electrocardiographical evidence of ischemia. Patient was asymptomatic regarding chief complaint. Cardiolite imaging interpretation will be reported separately. Clinical correlation required.
== END 2024-04-16 07:30 | disposition home or self-care (01) ==
LOC: CARD 07:30
PROVIDERS: PCP Family Medicine; Visit Provider Family Medicine
DX: R07.9 Chest pain, unspecified (principal); I10 Essential (primary) hypertension; I25.10 Atherosclerotic heart disease of native coronary artery without angina pectoris
CPT/HCPCS: 93017; J2785

== ENCOUNTER 2024-04-24 08:29 | Outpatient (OUT) | payer OTHER, SELFPAY ==
--- OUTSIDE RECORDS SUMMARY | 2024-04-24 08:53 | XMS_ITS | CCD ---
Author Organization [facility] Care Team Providers Care Honeycomb Blanket Maker Name Role Phone Dimple Milligan Unavailable YolandaDyanEmma Unavailable Yasmine Joaquin Unavailable SAMSA, MARYURI Consulting [...] DR VERDIN Attending Unavailable HOY ., DR VERDNI Admitting Unavailable TOBIAS, DR PADMINI Ravi Consulting Unavailable HOY ., [...] Consulting Unavailable JASEN .ANABELLE Attending Unavailable JASEN .ANABELLE Admitting Unavailable HOY ., DR VERDIN Primary Care Unavailable [facility], DR CHACON Consulting Unavailable HOY ., DR VERDIN Primary Care Unavailable [facility], DR CHACON Attending Unavailable ELTAHAWY, DR CHACON Admitting Unavailable SAMSA, MARYURI Consulting Unavailable HOY ., DR VERDIN Primary Care Unavailable SAMSA, MARYURI Attending Unavailable SAMSA, MARYURI Admitting Unavailable HOY ., DR VERDIN Consulting Unavailable HOY ., DR VERDIN Primary Care Unavailable HOY ., DR VERDIN Attending Unavailable HOY ., DR VERDIN Admitting Unavailable MORENO, WINCHA Consulting Unavailable [facility], DR CHACON Consulting Unavailable MARTINA ., DR VERDIN Primary Care Unavailable [facility], DR CHACON Attending Unavailable ELTAHAWY, DR CHACON Admitting Unavailable RAMBASEKDEBORA Attending Unavailable RAMBASEK, DEBORA Lynch Attending Unavailable RAMBASEK, DEBORA Lynch Referring Unavailable ANDRE PRESCOTT Attending Unavailable RAMADVIDK, DEBORA Lynch Attending Unavailable CECI LEE Attending [facility] Attending Unavailable [facility], INES Attending Unavailable Medications Current Medications Medication Drug [...] disease (7 sources) Atherosclerotic heart disease of chilkoot coronary artery without angina pectoris; Translations: [Coronary [...] 03-15-2023 Episodic Other aftercare (1 source) Other correction (current) drug therapy; Translations: [OTH RESIDENTIAL CURRENT DRUG THERAPY] Onset: 03-18-2023 Episodic Other aftercare (1 source) intermediate (current) use of aspirin; Translations: [RESIDENTIAL CURRENT USE OF ASPIRIN] Onset: 02-27-2023 Episodic [...] Name Value Interpretation Reference Range Facility 36on 04-19-2024 [address] tried to call [address]. Jose's office back on this. No VM. Can you please follow up on this and try to call them Monday? Thanks. [facility] 36 Good morning. I was off yesterday, but Atul left me a message about this patient. She said Dr. Jose's office called and asked what the plan was with this patient's recent stress test. When I got in today, I realized that you didn't order it. Dr. Jose did. I scanned it into [employer] Experience for you to review. Thanks. [facility] 36on 02-22-2024 36 Regarding lab result s from 02/21/2024: MD Karon Crain MA Great. Please let the patient know his serum creatinine is back to normal. No changes in medications. Thanks LM on VM. [facility] Office Visiton 02-21-2024 Follow-up visit [id number] Jada Grigsby 1965 M Date Provider Department Center 02/21/2024 INES MACEDO Family History Problem Relation Age of Onset Heart failure Father Coronary artery disease Father Family Status - Relation Status Age at Father Level of Service:28119 CA OFFICE/OUTPATIENT ESTABLISHED MOD MDM 30 MIN [facility] Office Visiton 11-27-2023 Follow-up visit [id number] Jada Grigsby 1965 M Date Provider Department Center 11/27/2023 INES MACEDO Family History Problem Relation Age of Onset Heart failure Father Coronary artery disease Father Family Status - Relation Status Age at Father Level of Service:89360 CA OFFICE/OUTPATIENT ESTABLISHED MOD MDM 30 MIN [facility] Orders Onlyon 06-21-2023 Orders Only [id number] Jada Grigsby 1965 M Date Provider Department Center 06/21/2023 ATUL DIETZ GENNARO [facility] Family History Problem Relation Age of Onset Heart failure Father Coronary artery disease Father Family Status - Relation Status Age at Father Normal [facility] 36on 06-19-2023 36 Please advise BP are higher than recommended targets. He can double on his Lisinopril and get BMP in 1 week after changes. Please send script and lab order. Thanks. Normal [facility] Office Visiton 05-29-2023 Follow-up visit [id number] Jada Grigsby 1965 M Date Provider Department Center 05/29/2023 [id number] RAMACHANDRAN GENNARO [facility] Family History Problem Relation Age of Onset Heart failure Father Coronary artery disease Father Family Status - Relation Status Age at Father Level of Service:27717 CA OFFICE/OUTPATIENT ESTABLISHED LOW MDM 20-29 MIN Normal [facility] THEOPHYLLINEon 03-15-2023 THEOPHYLLINE 5.9 ug/mL Critically low 10.0-20.0 [facility] Comment on above: Performed By: #### T ALAN #### [facility] [address] [address] [address] Navneet Godwin CHUCKIE by IFAon 01-23-2023 Antinuclear Antibodies, IFA Positive Abnormal [facility] Comment on above: Result Comment: Nega tive <1:80 Borderline 1:80 Positive >1:80 Performed By: #### C BC #### [facility] [address] [address] [address] Navneet Godwin Centriole Pattern Normal [facility] Comment on above: Performed By: #### C BC #### [facility] [address] [address] [address] Navneet Godwin Centromere Pattern Normal [facility] Comment on above: Performed By: #### C BC #### [facility] [address] [address] [address] Navneet Godwin Homogeneous Pattern 1:80 Normal [facility] Comment on above: Result Comment: ICAP nomenclature: AC-1 Performed By: #### C BC #### [facility] [address] [place], [place] [address] Dr. Navneet Godwin Midbody Pattern Normal [facility] Comment on above: Performed By: #### C BC #### [facility] [address] [place], [place] [address] Dr. Navneet Godwin Note: Comment Normal [facility] Comment on above: Result Comment: For [...] titers Nucleosomes, Histones Drug-induced SLE Speckled Sm, HOBBING PRESS OPERATOR, SCL-70, SLE,MCTD,PSS (diffuse form), SS-A/SS-B Sjogrens Nucleolar SCL-70, PM-1/SCL High titers Scleroderma, PM/DM Centromere Centromere PSS (limited form) w/Crest syndrome variable Nuclear Dot [id number] Primary Biliary Cirrhosis Nuclear GP210, Primary Biliary Cirrhosis Membrane ofelia A,B,C Performed By: #### C BC #### [facility] [address] [place] [address] Dr. Navneet Godwin Nuclear Dot Pattern Normal [facility] Comment on above: Performed By: #### C BC #### [facility] [address] [place] [address] Dr. Navneet Godwin Nuclear Membrane Pattern Normal [facility] Comment on above: Performed By: #### C BC #### [facility] [address] [place] [address] Dr. Navneet Godwin Nucleolar Pattern Normal [facility] Comment on above: Performed By: #### C BC #### [facility] [address] [place] [address] Dr. Navneet Godwin PCNA Pattern Normal [facility] Comment on above: Performed By: #### C BC #### [facility] [address] [place] [address] Dr. Navneet Godwin Speckled Pattern Normal [facility] Comment on above: Performed By: #### C BC #### [facility] [address] [place] [address] Dr. Navneet Godwin Spindle Apparatus Pattern Normal [facility] Comment on above: Performed By: #### C BC #### [facility] [address] [place] [address] Dr. Navneet Godwin INSULINon 01-23-2023 Insulin 50.9 uIU/mL Critically high 2.6-24.9 [facility] Comment on above: Performed By: #### I NSULIN #### [facility] [address] [place] [address] Dr. Navneet Godwin ANTISTREPTOLYSIN O AB (ASO)o n 01-22-2023 Antistreptolysin O Ab 55.6 IU/mL Normal 0.0-200.0 [facility] Comment on above: Performed By: #### H GB #### [facility] [address] [place] [address] Dr. Navneet Godwin RHEUMATOID FACTORon 01-23-20 RA Latex Turbid. <10.0 Normal <14.0 [facility] Comment on above: Performed By: #### H GB #### [facility] [address] [place] [address] Dr. Navneet Godwin CBC AUTO DIFFon 01-21-2023 BASO # 0.0 103/ul Normal 0.0-0.1 [facility] Comment on above: Performed By: #### C BC #### [facility] [address] [place] [address] Dr. Navneet Godwin Basophils/100 WBC (Bld) 0.8 % Normal 0.2-2.0 [facility] Comment on above: Performed By: #### C BC #### [facility] [address] [place] [address] Dr. Navneet Godwin EO # 0.1 103/ul Normal 0.0-0.7 [facility] Comment on above: Performed By: #### C BC #### [facility] [address] [place] [address] Dr. Navneet Godwin Eosinophils/100 WBC (Bld) 2.1 % Normal 0.9-7.0 [facility] Comment on above: Performed By: #### C BC #### [facility] [address] [place] [address] Dr. Navneet Godwin Erythrocyte distribution width (RBC) [Ratio] 13.7 % Normal 11.0-15.0 [facility] Comment on above: Performed By: #### C BC #### [facility] [address] [place] [address] Dr. Navneet Godwin Hematocrit (Bld) [Volume fraction] 37.6 % Critically low 42.0-54.0 [facility] Comment on above: Performed By: #### C BC #### [facility] [address] [place] [address] Dr. Navneet Godwin Hemoglobin (Bld) [Mass/Vol] 12.7 g/dL Critically low 14.0-18.0 [facility] Comment on above: Performed By: #### C BC #### [facility] [address] [place] [address] Dr. Navneet Godwin IG # 0.01 10e3/ul Normal 0.00-0.03 [facility] Comment on above: Performed By: #### C BC #### [facility] [address] [place] [address] Dr. Navneet Godwin IG % 0.2 % Normal 0.0-0.5 [facility] Comment on above: Performed By: #### C BC #### [facility] [address] [place] [address] Dr. Navneet Godwin LYMPH # 1.8 103/ul Normal 1.2-3.8 [facility] Comment on above: Performed By: #### C BC #### [facility] [address] [place] [address] Dr. Navneet Godwin Lymphocytes/100 WBC (Bld) 33.1 % Normal 20.5-60.0 [facility] Comment on above: Performed By: #### C BC #### [facility] [address] [place] [address] Dr. Navneet Godwin MANUAL DIFF REQ NO Normal [facility] Comment on above: Performed By: #### C BC #### [facility] [address] [place] [address] Dr. Navneet Godwin MCH (RBC) [Entitic mass] 29.4 pg Normal 25.9-34.0 [facility] Comment on above: Performed By: #### C BC #### [facility] [address] [place] [address] Dr. Navneet Godwin MCHC (RBC) [Mass/Vol] 33.8 g/dL Normal 29.9-35.2 [facility] Comment on above: Performed By: #### C BC #### [facility] [address] [place] [address] Dr. Navneet Godwin MCV (RBC) [Entitic vol] 87.0 fL Normal 80.0-94.0 [facility] Comment on above: Performed By: #### C BC #### [facility] [address] [place] [address] Dr. Navneet Godwin MONO # 0.4 103/ul Normal 0.3-0.8 [facility] Comment on above: Performed By: #### C BC #### [facility] [address] [place] [address] Dr. Navneet Godwin Monocytes/100 WBC (Bld) 8.1 % Normal 1.7-12.0 [facility] Comment on above: Performed By: #### C BC #### [facility] [address] [place] [address] Dr. Navneet Godwin NEUT # 2.9 103/ul Normal 1.4-6.5 [facility] Comment on above: Performed By: #### C BC #### [facility] [address] [place] [address] Dr. Navneet Godwin Neutrophils/100 WBC (Bld) 55.7 % Normal 43.0-75.0 [facility] Comment on above: Performed By: #### C BC #### [facility] [address] [place] [address] Dr. Navneet Godwin Platelet mean volume (Bld) [Entitic vol] 10.6 fL Normal 9.5-13.5 [facility] Comment on above: Performed By: #### C BC #### [facility] [address] [place] [address] Dr. Navneet Godwin PLT 236 103/ul Normal 150-450 [facility] Comment on above: Performed By: #### C BC #### [facility] [address] [address] [address] Navneet Godwin RBC 4.32 106/ul Critically low 4.70-6.10 [facility] Comment on above: Performed By: #### C BC #### [facility] [address] [address] [address] Navneet Godwin WBC 5.3 103/ul Normal 4.0-11.0 [facility] Comment on above: Performed By: #### C BC #### [facility] [address] [address] [address] Navneet Godwin CRPon 01-21-2023 CRP [Mass/Vol] mg/L Normal <=1.0 [facility] Comment on above: Performed By: #### H GB #### [facility] [address] [place] [address] Dr. Navneet Godwin FREE THYROXINE INDEX T7on FTI 2.59 Normal 1.30-4.50 [facility] Comment on above: Performed By: #### C BC #### [facility] [address] [place] [address] Dr. Navneet Godwin T3U 32.0 % Critically low 33.0-40.0 [facility] Comment on above: Performed By: #### C BC #### [facility] [address] [address] [address] Navneet Godwin T4 [Mass/Vol] 8.10 ug/dL Normal 4.50-12.10 [facility] Comment on above: Performed By: #### C BC #### [facility] [address] [place] [address] Dr. Navneet Godwin GLYCOHEMOGLOBIN A1Con 2022 ADA RECOMMENDATION SEE BELOW Normal [facility] Comment on above: Result Comment: ADA RECOMMENDED LIMIT 4.0 - 6.0 ADA THERAPEUTIC TARGET < 7.0 ACTION SUGGESTED > 7.0 Performed By: #### H GB #### [facility] [address] [address] [address] Navneet Godwin Glucose [Mass/Vol] 126 mg/dL Normal [facility] Comment on above: Performed By: #### H GB #### [facility] [address] [address] [address] Navneet Godwin HbA1c (Bld) [Mass fraction] 6.0 % Normal 4.5-6.2 [facility] Comment on above: Performed By: #### H GB #### [facility] [address] [address] [address] Navneet Godwin LIPID PROFILEon 01-21-2023 CHOL-HDL RATIO NORM SEE BELOW Normal [facility] Comment on above: Result Comment: 3.3 - 4.4 LOW RISK 4.4 - 7.1 AVERAGE RISK 7.1 - 11.0 MODERATE RISK >11.0 HIGH RISK Performed By: #### C BC #### [facility] [address] [place] [address] Dr. Navneet Godwin Cholesterol [Mass/Vol] 96 mg/dL Normal <=200 [facility] Comment on above: Performed By: #### C BC #### [facility] [address] [address] [address] Navneet Godwin Cholesterol in HDL [Mass/Vol] 45 mg/dL Normal 40-60 [facility] Comment on above: Performed By: #### C BC #### [facility] [address] [place] [address] Dr. Navneet Godwin Cholesterol in LDL [Mass/Vol] 37.2 mg/dL Normal [facility] Comment on above: Performed By: #### C BC #### [facility] [address] [place] [address] Dr. Navneet Godwin Cholesterol.total/C holesterol in HDL [Mass ratio] 2.1 {ratio} Normal [facility] Comment on above: Performed By: #### C BC #### [facility] [address] [address] [address] Navneet Godwin HDL NORMAL > or = 60 mg/dl - LO W CARDIOVASCULAR RISK <40 mg/dl - HIGH CARDIOVASCULAR RISK Normal [facility] Comment on above: Performed By: #### C BC #### [facility] [address] [address] [address] Navneet Godwin LDL CALC NORMAL SEE BELOW Normal [facility] Comment on above: Result Comment: <100 mg/dl OPTIMAL 100 - 129 mg/dl NEAR OR ABOVE OPTIMAL 130 - 159 mg/dl BORDERLINE HIGH 160 - 189 mg/dl HIGH >190 mg/dl VERY HIGH Performed By: #### C BC #### [facility] [address] [place] [address] Dr. Navneet Godwin Triglyceride [Mass/Vol] 69 mg/dL Normal <=150 [facility] Comment on above: Performed By: #### C BC #### [facility] [address] [place] [address] Dr. Navneet Godwin VLDL CALC 13.8 mg/dL Normal [facility] Comment on above: Performed By: #### C BC #### [facility] [address] [place] [address] Dr. Navneet Godwin OCC BLD IMMUNO SCREENon 01-04 OCCULT BLOOD Negative Normal NEGATIVE [facility] Comment on above: Performed By: #### O BSCRN #### [facility] [address] [place] [address] Dr. Navneet Godwin PROF 14(COMP METB)on 023 Albumin [Mass/Vol] 4.1 g/dL Normal 3.4-5.0 [facility] Comment on above: Performed By: #### C BC #### [facility] [address] [place] [address] Dr. Navneet Godwin Albumin/Globulin [Mass ratio] 1.4 {ratio} Normal [facility] Comment on above: Performed By: #### C BC #### [facility] [address] [place] [address] Dr. Navneet Godwin ALP [Catalytic activity/Vol] 40 U/L Critically low 46-116 [facility] Comment on above: Performed By: #### C BC #### [facility] [address] [place] [address] Dr. Navneet Godwin ALT [Catalytic activity/Vol] 33 U/L Normal 16-63 [facility] Comment on above: Performed By: #### C BC #### [facility] [address] [address] [address] Navneet Godwin Anion gap [Moles/Vol] 14.6 mmol/L Normal [facility] Comment on above: Performed By: #### C BC #### [facility] [address] [address] [address] Navneet Godwin AST [Catalytic activity/Vol] 33 U/L Normal 15-37 [facility] Comment on above: Performed By: #### C BC #### [facility] [address] [address] [address] Navneet Godwin Bilirubin [Mass/Vol] 0.4 mg/dL Normal 0.2-1.0 [facility] Comment on above: Performed By: #### C BC #### [facility] [address] [address] [address] Navneet Godwin Calcium [Mass/Vol] 9.2 mg/dL Normal 8.5-10.1 [facility] Comment on above: Performed By: #### C BC #### [facility] [address] [address] [address] Navneet Godwin Chloride [Moles/Vol] 109 mmol/L Critically high 98-107 [facility] Comment on above: Performed By: #### C BC #### [facility] [address] [address] [address] Navneet Godwin CO2 [Moles/Vol] 23.1 mmol/L Normal 21.0-32.0 [facility] Comment on above: Performed By: #### C BC #### [facility] [address] [address] [address] Navneet Godwin Creatinine [Mass/Vol] 1.12 mg/dL Normal 0.70-1.30 [facility] Comment on above: Performed By: #### C BC #### [facility] [address] [address] [address] Navneet Godwin EGFR-AF NAMIBIAN >60 Normal >=60 [facility] Comment on above: Performed By: #### C BC #### [facility] [address] [place] [address] Dr. Navneet Godwin EGFR-NON AF NAMIBIAN >60 Normal >=60 [facility] Comment on above: Performed By: #### C BC #### [facility] [address] [address] [address] Navneet Godwin Globulin (S) [Mass/Vol] 2.9 g/dL Normal [facility] Comment on above: Performed By: #### C BC #### [facility] [address] [address] [address] Navneet Godwin Glucose [Mass/Vol] 109 mg/dL Critically high 74-106 [facility] Comment on above: Performed By: #### C BC #### [facility] [address] [place] [address] Dr. Navneet Godwin Potassium [Moles/Vol] 3.7 mmol/L Normal 3.5-5.1 [facility] Comment on above: Performed By: #### C BC #### [facility] [address] [place] [address] Dr. Navneet Godwin Protein [Mass/Vol] 7.0 g/dL Normal 6.4-8.2 [facility] Comment on above: Performed By: #### C BC #### [facility] [address] [place] [address] Dr. Navneet Godwin Sodium [Moles/Vol] 143 mmol/L Normal 136-145 [facility] Comment on above: Performed By: #### C BC #### [facility] [address] [place] [address] Dr. Navneet Godwin Urea nitrogen [Mass/Vol] 18.0 mg/dL Normal 7.0-18.0 [facility] Comment on above: Performed By: #### C BC #### [facility] [address] [place] [address] Dr. Navneet Godwin Urea nitrogen/Creatinine [Mass ratio] 16.1 mg/mg Normal [facility] Comment on above: Performed By: #### C BC #### [facility] [address] [place], [place] [id number] Dr. Navneet Godwin TSHon 01-21-2023 TSH 1.912 uIU/mL Normal 0.358-3.740 [facility] Comment on above: Performed By: #### H GB #### [facility] [address] [place] [address] Dr. Navneet Godwin URIC ACID SERUMon 01-21-2023 Urate [Mass/Vol] 6.9 mg/dL Normal 3.5-7.2 [facility] Comment on above: Performed By: #### H GB #### [facility] [address] [place] [address] Dr. Navneet Godwin THEOPHYLLINEon 12-26-2022 THEOPHYLLINE 5.3 ug/mL Critically low 10.0-20.0 [facility] Comment on above: Performed By: #### C BC #### [facility] [address] [place] [address] Dr. Navneet Godwin LIPID PROFILEon 10-01-2022 CHOL-HDL RATIO NORM SEE BELOW Normal [facility] Comment on above: Result Comment: 3.3 - 4.4 LOW RISK 4.4 - 7.1 AVERAGE RISK 7.1 - 11.0 MODERATE RISK >11.0 HIGH RISK Performed By: #### L IPID, CMP #### [facility] [address] [place] [address] Dr. Navneet Godwin Cholesterol [Mass/Vol] 92 mg/dL Normal <=200 [facility] Comment on above: Performed By: #### L IPID, CMP #### [facility] [address] [place] [address] Dr. Navneet Godwin Cholesterol in HDL [Mass/Vol] 40 mg/dL Normal 40-60 [facility] Comment on above: Performed By: #### L IPID, CMP #### [facility] [address] [place] [address] Dr. Navneet Godwin Cholesterol in LDL [Mass/Vol] 33.2 mg/dL Normal [facility] Comment on above: Performed By: #### L IPID, CMP #### [facility] [address] [place] [address] Dr. Navneet Godwin Cholesterol.total/C holesterol in HDL [Mass ratio] 2.3 {ratio} Normal [facility] Comment on above: Performed By: #### L IPID, CMP #### [facility] [address] [address] [address] Navneet Godwin HDL NORMAL > or = 60 mg/dl - LO W CARDIOVASCULAR RISK <40 mg/dl - HIGH CARDIOVASCULAR RISK Normal [facility] Comment on above: Performed By: #### L IPID, CMP #### [facility] [address] [address] [address] Navneet Godwin LDL CALC NORMAL SEE BELOW Normal [facility] Comment on above: Result Comment: <100 mg/dl OPTIMAL 100 - 129 mg/dl NEAR OR ABOVE OPTIMAL 130 - 159 mg/dl BORDERLINE HIGH 160 - 189 mg/dl HIGH >190 mg/dl VERY HIGH Performed By: #### L IPID, CMP #### [facility] [address] [address] [address] Navneet Godwin Triglyceride [Mass/Vol] 94 mg/dL Normal <=150 [facility] Comment on above: Performed By: #### L IPID, CMP #### [facility] [address] [address] [address] Navneet Godwin VLDL CALC 18.8 mg/dL Normal [facility] Comment on above: Performed By: #### L IPID, CMP #### [facility] [address] [address] [address] Navneet Godwin PROF 14(COMP METB)on 022 Albumin [Mass/Vol] 3.6 g/dL Normal 3.4-5.0 [facility] Comment on above: Performed By: #### L IPID, CMP #### [facility] [address] [address] [address] Navneet Godwin Albumin/Globulin [Mass ratio] 1.2 {ratio} Normal [facility] Comment on above: Performed By: #### L IPID, CMP #### [facility] [address] [address] [address] Navneet Godwin ALP [Catalytic activity/Vol] 45 U/L Critically low 46-116 [facility] Comment on above: Performed By: #### L IPID, CMP #### [facility] [address] [place] [address] Dr. Navneet Godwin ALT [Catalytic activity/Vol] 25 U/L Normal 16-63 [facility] Comment on above: Performed By: #### L IPID, CMP #### [facility] [address] [place] [address] Dr. Navneet Godwin Anion gap [Moles/Vol] 13.5 mmol/L Normal [facility] Comment on above: Performed By: #### L IPID, CMP #### [facility] [address] [place] [address] Dr. Navneet Godwin AST [Catalytic activity/Vol] 37 U/L Normal 15-37 [facility] Comment on above: Performed By: #### L IPID, CMP #### [facility] [address] [place] [address] Dr. Navneet Godwin Bilirubin [Mass/Vol] 0.4 mg/dL Normal 0.2-1.0 [facility] Comment on above: Performed By: #### L IPID, CMP #### [facility] [address] [place] [address] Dr. Navneet Godwin Calcium [Mass/Vol] 8.9 mg/dL Normal 8.5-10.1 [facility] Comment on above: Performed By: #### L IPID, CMP #### [facility] [address] [place] [address] Dr. Navneet Godwin Chloride [Moles/Vol] 109 mmol/L Critically high 98-107 [facility] Comment on above: Performed By: #### L IPID, CMP #### [facility] [address] [place] [address] Dr. Navneet Godwin CO2 [Moles/Vol] 25.3 mmol/L Normal 21.0-32.0 [facility] Comment on above: Performed By: #### L IPID, CMP #### [facility] [address] [place] [address] Dr. Navneet Godwin Creatinine [Mass/Vol] 1.07 mg/dL Normal 0.70-1.30 [facility] Comment on above: Performed By: #### L IPID, CMP #### [facility] [address] [place] [address] Dr. Navneet Godwin EGFR-AF NAMIBIAN >60 Normal >=60 [facility] Comment on above: Performed By: #### L IPID, CMP #### [facility] [address] [address] [address] Navneet Godwin EGFR-NON AF NAMIBIAN >60 Normal >=60 [facility] Comment on above: Performed By: #### L IPID, CMP #### [facility] [address] [place] [address] Dr. Navneet Godwin Globulin (S) [Mass/Vol] 3.1 g/dL Normal [facility] Comment on above: Performed By: #### L IPID, CMP #### [facility] [address] [place] [address] Dr. Navneet Godwin Glucose [Mass/Vol] 115 mg/dL Critically high 74-106 [facility] Comment on above: Performed By: #### L IPID, CMP #### [facility] [address] [place] [address] Dr. Navneet Godwin Potassium [Moles/Vol] 3.8 mmol/L Normal 3.5-5.1 [facility] Comment on above: Performed By: #### L IPID, CMP #### [facility] [address] [place] [address] Dr. Navneet Godwin Protein [Mass/Vol] 6.7 g/dL Normal 6.4-8.2 [facility] Comment on above: Performed By: #### L IPID, CMP #### [facility] [address] [place] [address] Dr. Navneet Godwin Sodium [Moles/Vol] 144 mmol/L Normal 136-145 [facility] Comment on above: Performed By: #### L IPID, CMP #### [facility] [address] [place] [address] Dr. Navneet Godwin Urea nitrogen [Mass/Vol] 21.0 mg/dL Critically high 7.0-18.0 [facility] Comment on above: Performed By: #### L IPID, CMP #### [facility] [address] [place] [address] Dr. Navneet Godwin Urea nitrogen/Creatinine [Mass ratio] 19.6 mg/mg Normal [facility] Comment on above: Performed By: #### L IPID, CMP #### [facility] [address] [place] [address] Dr. Navneet Godwin ASPERGILLUS AB, QUANTITATIVE DIDon 07-08-2022 Aspergillus flavus Negative Normal Neg:<1:1 [facility] Comment on above: Performed By: #### C BC #### [facility] [address] [place] [address] Dr. Navneet Godwin Aspergillus fumigatus Negative Normal Neg:<1:1 [facility] Comment on above: Performed By: #### C BC #### [facility] [address] [place] [address] Dr. Navneet Godwin Aspergillus niger Negative Normal Neg:<1:1 [facility] Comment on above: Performed By: #### C BC #### [facility] [address] [place] [address] Dr. Navneet Godwin IMMUNOGLOBULIN E, TOTALon Immunoglobulin E, Total 102 IU/mL Normal 6-495 [facility] Comment on above: Performed By: #### C BC #### [facility] [address] [place] [address] Dr. Navneet Godwin ANTI NEUTROPHIL CYTOPLASMIC AB (ANCA) PRon 07-05-2022 Anti-MPO Antibodies <0.2 Normal 0.0-0.9 [facility] Comment on above: Result Comment: Perf ormed at: BN Performed By: #### H GB #### [facility] [address] [place] [address] Dr. Navneet Godwin Anti-PR3 Antibodies <0.2 Normal 0.0-0.9 [facility] Comment on above: Result Comment: Perf ormed at: BN Performed By: #### H GB #### [facility] [address] [address] [address] Navneet Godwin Atypical pANCA <1:20 Normal Neg:<1:20 [facility] Comment on above: Result Comment: The atypical pANCA pattern has been observed in a significant percentage of patients with ulcerative colitis, primary sclerosing cholangitis and autoimmune hepatitis. Performed at: CB Performed By: #### H GB #### [facility] [address] [address] [address] Navneet Godwin Cytoplasmic (C-ANCA) <1:20 Normal Neg:<1:20 [facility] Comment on above: Result Comment: Perf ormed at: CB Performed By: #### H GB #### [facility] [address] [place] [address] Dr. Navneet Godwin Perinuclear (P-ANCA) <1:20 Normal Neg:<1:20 [facility] Comment on above: Result Comment: The presence of positive fluorescence exhibiting P-ANCA or C-ANCA patterns alone is not specific for the diagnosis of [place]'s Granulomatosis (WG) or microscopic polyangiitis. Decisions about treatment should not be based solely on ANCA IFA results. The [employer] ANCA [employer] Consensus recommends follow up testing of positive sera with both CA-3 and MPO-ANCA enzyme immunoassays. As many as 5% serum samples are positive only by EIA. Ref. AM J Clin Pathol 1999;111:507-513. Performed at: CB Performed By: #### H GB #### [facility] [address] [place] [address] Dr. Navneet Godwin CBC AUTO DIFFon 06-30-2022 BASO # 0.0 103/ul Normal 0.0-0.1 [facility] Comment on above: Performed By: #### C BC #### [facility] [address] [place] [address] Dr. Navneet Godwin Basophils/100 WBC (Bld) 0.7 % Normal 0.2-2.0 [facility] Comment on above: Performed By: #### C BC #### [facility] [address] [place] [address] Dr. Navneet Godwin EO # 0.1 103/ul Normal 0.0-0.7 [facility] Comment on above: Performed By: #### C BC #### [facility] [address] [place] [address] Dr. Navneet Godwin Eosinophils/100 WBC (Bld) 1.9 % Normal 0.9-7.0 [facility] Comment on above: Performed By: #### C BC #### [facility] [address] [place] [address] Dr. Navneet Godwin Erythrocyte distribution width (RBC) [Ratio] 12.5 % Normal 11.0-15.0 [facility] Comment on above: Performed By: #### C BC #### [facility] [address] [place] [address] Dr. Navneet Godwin Hematocrit (Bld) [Volume fraction] 38.6 % Critically low 42.0-54.0 [facility] Comment on above: Performed By: #### C BC #### [facility] [address] [place] [address] Dr. Navneet Godwin Hemoglobin (Bld) [Mass/Vol] 12.9 g/dL Critically low 14.0-18.0 [facility] Comment on above: Performed By: #### C BC #### [facility] [address] [place] [address] Dr. Navneet Godwin IG # 0.01 10e3/ul Normal 0.00-0.03 [facility] Comment on above: Performed By: #### C BC #### [facility] [address] [place] [address] Dr. Navneet Godwin IG % 0.2 % Normal 0.0-0.5 [facility] Comment on above: Performed By: #### C BC #### [facility] [address] [place] [address] Dr. Navneet Godwin LYMPH # 2.4 103/ul Normal 1.2-3.8 [facility] Comment on above: Performed By: #### C BC #### [facility] [address] [place] [address] Dr. Navneet Godwin Lymphocytes/100 WBC (Bld) 41.7 % Normal 20.5-60.0 [facility] Comment on above: Performed By: #### C BC #### [facility] [address] [place] [address] Dr. Navneet Godwin MANUAL DIFF REQ NO Normal [facility] Comment on above: Performed By: #### C BC #### [facility] [address] [place] [address] Dr. Navneet Godwin MCH (RBC) [Entitic mass] 29.8 pg Normal 25.9-34.0 [facility] Comment on above: Performed By: #### C BC #### [facility] [address] [place] [address] Dr. Navneet Godwin MCHC (RBC) [Mass/Vol] 33.4 g/dL Normal 29.9-35.2 [facility] Comment on above: Performed By: #### C BC #### [facility] [address] [place] [address] Dr. Navneet Godwin MCV (RBC) [Entitic vol] 89.1 fL Normal 80.0-94.0 [facility] Comment on above: Performed By: #### C BC #### [facility] [address] [place] [address] Dr. Navneet Godwin MONO # 0.6 103/ul Normal 0.3-0.8 [facility] Comment on above: Performed By: #### C BC #### [facility] [address] [place] [address] Dr. Navneet Godwin Monocytes/100 WBC (Bld) 10.5 % Normal 1.7-12.0 [facility] Comment on above: Performed By: #### C BC #### [facility] [address] [place] [address] Dr. Navneet Godwin NEUT # 2.6 103/ul Normal 1.4-6.5 [facility] Comment on above: Performed By: #### C BC #### [facility] [address] [place] [address] Dr. Navneet Godwin Neutrophils/100 WBC (Bld) 45.0 % Normal 43.0-75.0 [facility] Comment on above: Performed By: #### C BC #### [facility] [address] [place] [address] Dr. Navneet Godwin Platelet mean volume (Bld) [Entitic vol] 10.1 fL Normal 9.5-13.5 [facility] Comment on above: Performed By: #### C BC #### [facility] [address] [place] [address] Dr. Navneet Godwin PLT 296 103/ul Normal 150-450 [facility] Comment on above: Performed By: #### C BC #### [facility] [address] [address] [address] Navneet Godwin RBC 4.33 106/ul Critically low 4.70-6.10 [facility] Comment on above: Performed By: #### C BC #### [facility] [address] [place] [address] Dr. Navneet Godwin WBC 5.8 103/ul Normal 4.0-11.0 [facility] Comment on above: Performed By: #### C BC #### [facility] [address] [place] [address] Dr. Navneet Godwin PROF CHEM 8 (BAS METB)on Anion gap [Moles/Vol] 13.2 mmol/L Normal [facility] Comment on above: Performed By: #### B MP #### [facility] [address] [place] [address] Dr. Navneet Godwin Calcium [Mass/Vol] 9.1 mg/dL Normal 8.5-10.1 [facility] Comment on above: Performed By: #### B MP #### [facility] [address] [place] [address] Dr. Navneet Godwin Chloride [Moles/Vol] 106 mmol/L Normal 98-107 [facility] Comment on above: Performed By: #### B MP #### [facility] [address] [place] [address] Dr. Navneet Godwin CO2 [Moles/Vol] 23.7 mmol/L Normal 21.0-32.0 [facility] Comment on above: Performed By: #### B MP #### [facility] [address] [address] [address] Navneet Godwin Creatinine [Mass/Vol] 1.06 mg/dL Normal 0.70-1.30 [facility] Comment on above: Performed By: #### B MP #### [facility] [address] [address] [address] Navneet Godwin EGFR-AF NAMIBIAN >60 Normal >=60 [facility] Comment on above: Performed By: #### B MP #### [facility] [address] [address] [address] Navneet Godwin EGFR-NON AF NAMIBIAN >60 Normal >=60 [facility] Comment on above: Performed By: #### B MP #### [facility] [address] [place] [address] Dr. Navneet Godwin Glucose [Mass/Vol] 94 mg/dL Normal 74-106 [facility] Comment on above: Performed By: #### B MP #### [facility] [address] [place] [address] Dr. Navneet Godwin Potassium [Moles/Vol] 3.9 mmol/L Normal 3.5-5.1 [facility] Comment on above: Performed By: #### B MP #### [facility] [address] [place] [address] Dr. Navneet Godwin Sodium [Moles/Vol] 139 mmol/L Normal 136-145 [facility] Comment on above: Performed By: #### B MP #### [facility] [address] [place] [address] Dr. Navenet Godwin Urea nitrogen [Mass/Vol] 17.0 mg/dL Normal 7.0-18.0 [facility] Comment on above: Performed By: #### B MP #### [facility] [address] [place] [address] Dr. Navneet Godwin Urea nitrogen/Creatinine [Mass ratio] 16.0 mg/mg Normal [facility] Comment on above: Performed By: #### B MP #### [facility] [address] [place] [address] Dr. Navneet Godwin XR CHEST 2 Von [...] by: MICKY MORENO Date: 2022-05-30 10:52 Normal [facility] ECHOCARDIO M/2D COMPLETEon 0 04-18-2022 ECHOCARDIO M/2D COMPLETE Patient: PARAS GRIGSBY Exam Date: 04/18/2022 : 1965 Gender:M Ordering : DR LAMBERT JOSE . Admission #: [id number] Family : Order #: [id number] CLICK HERE TO VIEW EXAM ECHOCARDIOGRAM REPORT [...] Area(A4C): 16.30 cm2 Left Atrium Systolic Volume(A2C): 95886 mm3 Left Atrium Systolic Volume(A4C): 33013 mm3 Mitral Valve MV E to A [...] Yu M.D. on 04/19/2022 at 18:16 Normal [facility] CHEST WO W CONon 022 CTA CHEST WO W CON EXAMINATION: [...] by: PADMINI WHITE Date: 2022-04-11 07:16 Normal [facility] HEMOGLOBINon 03-24-2022 Hemoglobin (Bld) [Mass/Vol] 13.2 g/dL Critically low 14.0-18.0 [facility] Comment on above: Performed By: #### H GB #### [facility] [address] [place] [address] Dr. Navneet Godwin Progress Note-Physicianon Progress Note-Physician [...] patient tolerated the procedure well. . Normal [facility] Comment on above: Result Comment: Elec tronically Signed By: Sg Thayer Jr, DO\.br\Date and Time Signed: 10/15/19 10:48 EST Coding Summary.on 10-11-2019 Coding Summary. CODING DATE: 019 FINAL [facility] STATUS: Home (Routine DC) PAYOR: [facility] [place] [facility] DESCRIPTION 5361 Level 1 Laparoscopy and Related Services ADMIT DX: REASON FOR VISIT DX: K42.9 Umbilical hernia without obstruction or gangrene FINAL DX: PRINCIPAL: K42.9 Umbilical hernia without obstruction or gangrene SECONDARY: I10 Essential (primary) hypertension J44.9 Chronic obstructive pulmonary disease, unspecified PYMT PROC APC STAT DESCRIPTION DOCTOR NAME DATE 22109 5361 J1 Laparoscopy, surgical, ALEXIA LEWIS, Lee Wagner 10/07/2019 repair, ventral, umbilical, spigelian or epigastric hernia (includes mesh insertion, when performed); reducible 22335 Transversus abdominis Sg Thayer Jr, DO 10/07/2019 plane (TAP) block (abdominal plane block, rectus sheath block) bilateral; by injections (includes imaging guidance, when performed) XP Separate practitioner, a service that is distinct because it was performed by a different practitioner 08835 Anesthesia for hernia Sg Thayer Jr, DO [...] Revised Date Saved: 10/11/2019 11:51 am Normal [facility] Progress Note-Physicianon Progress Note-Physician Patient: PARAS [...] All Problems COPD exacerbation / SNOMED CT 857012200 / Confirmed BMI 38.0-38.9,adult / SNOMED CT 301097944 / Confirmed Diabetes / SNOMED CT 263895580 / Confirmed new diagnosis on no meds yet Hypertension / SNOMED CT 4863100966 / Confirmed Hypertensive retinopathy / SNOMED CT 95736729 / Confirmed Umbilical hernia / SNOMED CT 5394973700 / Confirmed Resolved: Kidney stone / SNOMED CT 700049052 Histories Past Medical History: Resolved Kidney stone (592122610): Resolved. Family History: Heart disease Father Leukemia Mother Procedure history: Arthroscopy of knee (336969489). Comments: 09/30/2019 10:32 - Deya Guzman RN and left knee 09/18/2019 11:41 - Jose Ramon Caba RIGHT KNEE Tonsillectomy (853432576). ESWL of kidney (99048434). Arthroscopy of shoulder (781246286). Comments: 09/30/2019 10:33 - Deya Guzman RN bilateral Social History Social & Psychosocial Habits [...] results Radiology results ECG interpretation Condition Plan [place] [employer] Anesthesiologists (ASA) physical status classification: Class III. Anesthetic Preoperative Plan Anesthesia: General. . Anesthetic plan, risks, benefits, and alternatives discussed with the patient and/or family. Risks discussed: nausea, vomiting, headache, sore throat, dental injury, serious complications. Patient verbalized understanding. Communication: face to face with (patient 5 minutes, Pt educated on the importance of smoking cessation.). [facility] Comment on above: Result Comment: Elec tronically Signed By: Sg Thayer Jr, DO\.br\Date and Time Signed: 10/11/19 08:51 EST Main OR Intraoperative Recor don 10-08-2019 Main OR Intraoperative Record IntraOp Document Type FT Summary Primary Physician: Lee HAMPTON MD Finalized Date/Time: 10/08/19 13:41:00 Pt. Name: PARAS GRIGSBY /Sex: 1965 Male Med Rec #: [id number] Physician: Lee HAMPTON MD Financial #: [id number] Pt. Type: A Room/Bed: 03/06 Admit/Disch: 10/07/19 [...] 1 Entry 2 Entry 3 Case Attendee Sg Thayer Jr, DO, MD, Lee Logan RN, CNOR, Janet Role Performed Anesthesiologist of Surgeon - Primary INSEAM TRIMMER Record Time In 10/07/19 09:32:00 10/07/19 09:32:00 10/07/19 09:32:00 Time Out 10/07/19 11:43:00 10/07/19 11:43:00 10/07/19 11:43:00 Procedure HERNIA REPAIR, ROBOT HERNIA REPAIR, ROBOT HERNIA REPAIR, ROBOT ASSISTED(.) ASSISTED(.) ASSISTED(.) Comments Last Modified By: Harsh ARIAS, Gricelda House RN, Gricelda Richards RN 10/07/19 11:47:03 10/07/19 11:47:03 10/07/19 11:47:03 Entry 4 Entry 5 Case Attendee Harsh ARIAS, Gricelda Richards CST, Ashely Lynch Role Performed Supervisor Cook Room - Primary Scrub - Primary Time In 10/07/19 09:32:00 10/07/19 09:32:00 Time Out 10/07/19 11:43:00 10/07/19 11:43:00 Procedure HERNIA REPAIR, ROBOT HERNIA REPAIR, ROBOT ASSISTED(.) ASSISTED(.) Comments Last Modified By: Harsh RN, Gricelda Richards RN 10/07/19 11:47:03 10/07/19 11:47:03 Perioperative Protocols FT [...] Medication Applicable) PreOp Antibiotic Yes Time Out Sg Thayer Jr, DO, Given Participants ALEXIA LEWIS, Doreen Pavon RN, CNOR, Harsh Gonzales RN, Maurice Ghotra CST, Ashely Lynch Time Out Complete 10/07/19 10:03:00 [...] and tissue Entry 1 Skin Integrity Intact, [place], Warm, and Skin Abnormality No Dry Outcomes [...] Head Large, Arm Sled Left, Other/See Comments, [place] Wedge Right Side By [place] RN, Gricelda A, Blank Outcomes Met? Yes RN, CNOR, Cheyenne Schaffer, Jeovany Lester DO, ALEXIA Woody [...] Richards RN 10/07/19 10:27:41 10/07/19 10:27:41 10/07/19 10:39:11 Post-Care [...] Outcomes Met? Yes Last Modified By: Gricelda Hosue RN 10/07/19 10:28:12 Post-Care Text: The patient if free from signs and symptoms of electrical injury Counts Verification FT Pre-Care Text: Performs required counts Entry 1 Entry 2 Procedure(s) HERNIA REPAIR, ROBOT HERNIA REPAIR, ROBOT ASSISTED(.) ASSISTED(.) Type Initial Final Items Instruments, Sponges, Sponges, Sharps, Sharps, Other/See Other/See Comments Comments Status Correct Correct Time 10/07/19 09:35:00 10/07/19 11:26:00 By SATISH Logan RN, Gricelda Self RN, Ann, [place] RADIO REPAIR TEACHER, Maurice FARLEY, Ashely Lynch Outcomes Met? Yes Yes Last Modified By: Gricelda House RN, RN, Emily A 10/07/19 10:28:52 10/07/19 11:36:04 Post-Care Text: The patient is free from signs and symptoms of injury caused by extraneous objects General Comments: OTHER ITEM COUNTED: SCISSOR PIECES. - E.HARSH ARIAS Skin Prep FT Pre-Care Text: Performs skin preparations Entry 1 Procedure HERNIA REPAIR, ROBOT Prep Area abdomen ASSISTED(.) Prep Agents Betadine Scrub and Solution Hair Removal Methods Clipper Site DR HAMPTON USED CLIPPERS ON ABDOMEN By Doreen ARIAS, SATISH, Cheyenne Schaffer Outcomes Met? Yes Last Modified By: Gricelda [...] to transfer/transport General Comments: REPORT GIVEN TO HVAC DESIGN ENGINEERRN. Cheryl STRINGER RN Dressing/Packing FT Pre-Care Text: [...] safely administered during the perioperative period For [place] please see scanned medication reconcilliation form for medications used at the field during the procedure. Implant Log FT Pre-Care Text: Records devices implanted during the operative or invasive procedure Entry 1 Procedure HERNIA REPAIR, ROBOT Implant/Explant Implant ASSISTED(.) Implant Identification FT Description MESH STEX ROUND 9CM Lot Number [id number] (3.6 ) [SYM9][F] Store Group Manager FT-AddMyBest Catalog ?# SYM9 [F] Size 9cm Expiration Date 11/05/23 Unique Device [id number] Human Readable [id number] Identifier (DEE) Barcode {[id number]{10 [id number] Machine Readable [id number] Barcode [id number] Usage Data FT Implant Site Abdomen Implant Site Comment umbilical Quantity 1 Implant/Explant Date 10/07/19 10:46:00 Implanted By ALEXIA LEWIS, Lee Wagner Biological Implants MR Classification MR Conditional Outcomes Met? Yes Last Modified By: Gricelda House RN 10/07/19 10:46:56 Post-Care Text: The patient is free from signs and symptoms of injury caused by extraneous objects Drains/Tubes FT Pre-Care Text: Administers care to invasive device sites Entry 1 Device Type TUBE NASOGASTIC SUMP Location mouth 18FR [[id number]][F] Quantity 1 Inserted By Sg Thayer Jr, [...] Present Upon Arrival No Inserted LF 16FR [[id number]][F] Insertion Date/Time 10/07/19 09:58:00 Urine Residual 125 [...] BLANKET MISTRAL AIR Quantity 1 Aid TORSO [[id number]][F] Fluid/Riverbank Unit Mistral warming system Setting high/43 Body Site Upper anterior torso Last Modified By: Gricelda House RN 10/07/19 10:32:35 Case Comments Finalized By: Angelica Israel CST Document Signatures Signed By: Gricelda House RN 10/07/19 11:47 Angelica Israel CST 10/08/19 13:40 Normal [facility] History and Physicalon 10-07 History and Physical Patient: PARAS GRIGSBY Age: 53 years Sex: Male : 1965 Associated Diagnoses: None Author: Lee HAMPTON MD Subjective no changes to H & P Normal [facility] Comment on above: Result Comment: Elec tronically Signed By: Lee HAMPTON MD\.br\Date and Time Signed: 10/07/19 09:08 EST Inpatient Patient Summaryon 10-07-2019 Inpatient Patient Summary [facility] Clinical Discharge Instructions PERSON INFORMATION Name: PARAS GRIGSBY PHYSICIANS Admitting Physician: Lee HAMPTON MD Attending Physician: Lee HAMPTON MD PCP: Martina LEWIS, Lambert Discharge Diagnosis: Hernia, umbilical Comment: PATIENT EDUCATION INFORMATION Instructions: Post Op Patient Instructions - FT (CUSTOM) Medication Leaflets: Follow up: With: Address: When: [place] [address] [facility] ([place] Within 7 to 10 days MEDICATION LIST Fill New Prescriptions: acetaminophen-hydrocodone (acetaminophen-hydrocodone 325 mg-5 mg oral tablet) 1 tab(s) By Mouth every 4 hours as needed for Pain take with food or milk Comment: Normal [facility] Main OR PACU I [facility] Main OR PACU I Record PACU Phase I Document Type FT Summary Primary Physician: Lee HAMPTON MD Finalized Date/Time: 10/07/19 12:51:42 Pt. Name: PARAS GRIGSBY /Sex: 1965 Male Med Rec #: [id number] Physician: Lee HAMPTON MD Financial #: [id number] Pt. Type: A Room/Bed: Admit/Disch: 10/07/19 07:08:33 - Institution: Case Times [...] By: Jason Chacon RN 10/07/19 12:51 Normal [facility] Main OR PACU II Recordon Main OR PACU II Record PACU Phase II Document Type FT Summary Primary Physician: Lee HAMPTON MD Finalized Date/Time: 10/07/19 17:37:19 Pt. Name: PARAS GRIGSBY/Sex: 1965 Male Med Rec #: [id number] Physician: Lee HAMPTON MD Financial #: [id number] Pt. Type: A Room/Bed: [facility] Admit/Disch: 10/07/19 07:08:00 - 10/07/19 15:10:00 Institution: [...] Signed By: Karie Fletcher RN 10/07/19 17:37 [facility] OR Preoperative Recordo n 10-07-2019 Main OR Preoperative Record PreOp Document Type FT Summary Primary Physician: Lee HAMPTON MD Finalized Date/Time: 10/07/19 10:13:38 Pt. Name: PARAS GRIGSBY /Sex: 1965 Male Med Rec #: [id number] Physician: Lee HAMPTON MD Financial #: [id number] Pt. Type: A Room/Bed: Admit/Disch: 10/07/19 07:08:33 - Institution: Case Times [...] By: Gricelda House RN 10/07/19 10:13 Normal [facility] Operative Reporton 9 Operative Report Date [...] brought in, exchanged for the #2 needle tram driver and sutures were all cut. The [...] fascia was closed with a 0 Vicryl cxppia-cz-tgfks suture. All port sites were infiltrated with [...] condition. Lee Hampton M.D. gls Dictated: 10/07/2019 #[id number] Typed: 10/07/2019 #[id number] cc: Alex Hdz M.D. Normal [facility] Comment on above: Result Comment: Elec tronically Signed By: ALEXIA LEWIS, Lee Cervantes.br\Date and Time Signed: 10/07/19 13:50 EST Patient Education - Texton 1 12-08-2018 Patient Education - Text Normal [facility] UA With Cult Reflexon 2018 Bilirubin Ql (U) Negative Normal Negative [facility] Comment on above: Performed By: #### 2 871925, 8208049, 2372870, 07810975, 3056493, 6874792 #### [facility] [address] [place] [address] Clarity (U) CLEAR Normal Clear [facility] Comment on above: Performed By: #### 2 631448, 1736949, 2128663, 65984059, 7557389, 8384158 #### [facility] [address] [place] [address] Color (U) YELLOW Normal Yellow [facility] Comment on above: Performed By: #### 2 797855, 6101649, 7579842, 21892565, 0739224, 9628667 #### [facility] [address] [place] [address] Epithelial cells.squamous LM.HPF (Urine sed) [#/Area] 0-2 Normal 0-2 [facility] Comment on above: Performed By: #### 2 617712, 0854094, 3866454, 40213491, 4237489, 7649139 #### [facility] [address] [place] [address] Glucose Test strip (U) [Mass/Vol] Negative Normal Negative [facility] Comment on above: Performed By: #### 2 751663, 3259483, 9595790, 83584900, 6103014, 2849969 #### [facility] [address] [place] [address] Hemoglobin Ql (U) Negative Normal Negative [facility] Comment on above: Performed By: #### 2 909310, 5352234, 4879343, 58545641, 0262656, 3585257 #### [facility] [address] [place] [address] Ketones (U) [Mass/Vol] Negative Normal Negative [facility] Comment on above: Performed By: #### 2 215389, 2528993, 3261498, 53070511, 5176836, 5130830 #### [facility] [address] [place] [address] Cobden.plasma/Lith ium.RBC (Bld) [Mass ratio] 0-3 Normal 0-3 [facility] Comment on above: Performed By: #### 2 590859, 3114210, 5519189, 27511754, 9485454, 8992364 #### [facility] [address] [place] [address] Nitrite Ql (U) Negative Normal Negative [facility] Comment on above: Performed By: #### 2 567612, 3783238, 3120544, 40612868, 1584539, 3535185 #### [facility] [address] [place] [address] pH (U) 5.5 [pH] 5.0-9.0 [facility] Comment on above: Performed By: #### 2 055905, 2406570, 6646999, 27127596, 4284434, 9427222 #### [facility] [address] [place] [address] Protein (U) [Mass/Vol] Negative Normal Negative [facility] Comment on above: Performed By: #### 2 231051, 3563546, 3044433, 98611607, 2377063, 3263374 #### [facility] [address] [place] [address] Specific gravity (U) [Rel density] >=1.030 1.005-1.030 [facility] Comment on above: Performed By: #### 2 569840, 2127110, 3278494, 76110305, 6422570, 7224689 #### [facility] [address] [place] [address] UA Spec Desc Villegas Normal [facility] Comment on above: Performed By: #### 2 829492, 3670513, 0519844, 06379556, 2013228, 2851081 #### [facility] [address] [place] [address] Urobilinogen Qn (U) 0.2 {Nayeli'U}/dL Normal 0.0-1.0 [facility] Comment on above: Performed By: #### 2 200517, 6167700, 9435182, 42711677, 5940258, 6179342 #### [facility] [address] [place] [address] WBC Auto Ql (U) Negative Normal Negative [facility] Comment on above: Performed By: #### 2 063936, 2682191, 3823469, 81840543, 7262483, 1735151 #### [facility] [address] [place] [address] WBC LM.HPF (Urine sed) [#/Area] 0-5 Normal 0-5 [facility] Comment on above: Performed By: #### 2 387859, 1262159, 0244219, 05022734, 3217455, 8330769 #### [facility] [address] [place] [address] Coding Summary.on 10-01-2019 Coding Summary. CODING DATE: 019 FINAL [facility] STATUS: Home (Routine DC) PAYOR: Medical [place] [facility] DESCRIPTION 5521 Level 1 Imaging without [...] CphT Date Saved: 10/01/2019 06:34 am Normal [facility] XR Chest 2 Viewson 9 XR [...] MD Transcribed by: ANKITA Technologist: RH Normal [facility] BUNon 09-30-2019 Urea nitrogen [Mass/Vol] 15 mg/dL Normal 5-21 [facility] Comment on above: Performed By: #### 2 487238, 6287229, 3832833, 58760727, 9029323, 5375908 #### [facility] [address] [place] [address] CBC w/Indiceson 09-30-2019 Erythrocyte distribution width (RBC) [Ratio] 13.2 % Normal 10.9-14.2 [facility] Comment on above: Performed By: #### 2 756507, 1313008, 4216607, 21581380, 2845271, 5187993 #### [facility] [address] [place] [address] Hematocrit (Bld) [Volume fraction] 42.9 % Normal 37.7-49.0 [facility] Comment on above: Performed By: #### 2 188376, 0035251, 2854175, 66833412, 8586775, 7101371 #### [facility] [address] [place] [address] Hemoglobin (Bld) [Mass/Vol] 14.7 g/dL Normal 13.5-17.5 [facility] Comment on above: Performed By: #### 2 968896, 8662483, 9850669, 18349015, 0271981, 3538608 #### [facility] [address] [place] [address] MCH (RBC) [Entitic mass] 31.4 pg Normal 27.0-34.0 [facility] Comment on above: Performed By: #### 2 357870, 6732579, 5681606, 78899401, 0552819, 0633087 #### [facility] [address] [place] [address] MCHC (RBC) [Mass/Vol] 34.2 g/dL Normal 31.4-36.0 [facility] Comment on above: Performed By: #### 2 742596, 4656439, 7588927, 60769148, 3266841, 2669053 #### [facility] [address] [place] [address] MCV (RBC) [Entitic vol] 91.9 fL Normal 80.0-100.0 [facility] Comment on above: Performed By: #### 2 632788, 6880034, 3187724, 60209830, 7285569, 4187998 #### [facility] [address] [place] [address] Platelet mean volume (Bld) [Entitic vol] 9.0 fL Normal 6.4-10.8 [facility] Comment on above: Performed By: #### 2 731223, 5252573, 3452176, 53857604, 8913429, 6077731 #### [facility] [address] [place] [address] Platelets (Bld) [#/Vol] 230.0 E9/L Normal 150.0-500.0 [facility] Comment on above: Performed By: #### 2 305582, 8448117, 1735634, 81580018, 0944191, 2465275 #### [facility] [address] [place] [address] RBC (Bld) [#/Vol] 4.7 E12/L Normal 4.3-5.9 [facility] Comment on above: Performed By: #### 2 235096, 1693765, 7782482, 41959363, 2525029, 4677693 #### [facility] [address] [place] [address] WBC corrected for nucl RBC Auto (Bld) [#/Vol] 5.7 E9/L Normal 4.0-11.0 [facility] Comment on above: Performed By: #### 2 860306, 8501711, 7610128, 23858892, 3525122, 3542752 #### [facility] [address] [place] [address] Creatinineon 09-30-2019 Creatinine [Mass/Vol] 0.8 mg/dL Normal 0.5-1.3 [facility] Comment on above: Performed By: #### 2 976467, 6914257, 1444876, 37799526, 4372553, 7150061 #### [facility] [address] [place] [address] Glucoseon 09-30-2019 Glucose [Mass/Vol] 91 mg/dL Normal 55-199 [facility] Comment on above: Performed By: #### 2 771395, 5715698, 3948226, 91934179, 7320920, 7904427 #### [facility] [address] [place] [address] Lyteson 09-30-2019 Anion gap [Moles/Vol] 13 mmol/L Normal 6-16 [facility] Comment on above: Performed By: #### 2 181715, 8155557, 8588893, 30415452, 0820080, 7609937 #### [facility] [address] [place] [address] Chloride [Moles/Vol] 109 mmol/L Normal 101-111 [facility] Comment on above: Performed By: #### 2 352416, 9474361, 5064765, 45657712, 0000369, 8229345 #### [facility] [address] [place] [address] CO2 [Moles/Vol] 22 mmol/L Normal 21-31 [facility] Comment on above: Performed By: #### 2 657276, 0150611, 1186216, 67106758, 3172281, 3103786 #### [facility] [address] [place] [address] Potassium [Moles/Vol] 4.0 mmol/L Normal 3.5-5.3 [facility] Comment on above: Performed By: #### 2 268723, 2631565, 4393257, 64179934, 8971428, 2575499 #### [facility] [address] [place] [address] Sodium [Moles/Vol] 140 mmol/L Normal 135-145 [facility] Comment on above: Performed By: #### 2 051109, 7388810, 3429467, 07149836, 4110280, 5768655 #### [facility] [address] [place] [address] eGFRon 09-30-2019 GFR/1.73 sq M predicted among blacks MDRD (S/P/Bld) [Vol rate/Area] mL/min/{1.73_m2} Normal >=59 [facility] Comment on above: Order Comment: Order added by Discern Expert. Result Comment: eGFR is race adjusted. AA=. Performed By: #### 2 991792, 7045971, 2964544, 67684284, 6846328, 6915708 #### [facility] [address] [place] [address] GFR/1.73 sq M predicted among non-blacks MDRD (S/P/Bld) [Vol rate/Area] mL/min/{1.73_m2} Normal >=59 [facility] Comment on above: Order Comment: Order added by Discern Expert. Result Comment: Telephone Surveyor amy kidney disease could be indicated at eGFR's of less than 60 mL/min/1.73m2. Kidney failure is indicated at less than 15 mL/min/1.73m2. Performed By: #### 2 079938, 1725406, 3261579, 16480949, 3443752, 3726205 #### [facility] [address] [place] [address] Vital Signs Date Time Vital Sign Value Performing Clinician Facility 02-23-2023 16:25-0400 Body height 170.18 cm Yasmine Joaquin Other [facility] Other 02-23-2023 16:25-0400 Body mass index (BMI) [Ratio] 40.72 kg/m2 Yasmine Joaquin Other [facility] Other 02-23-2023 16:25-0400 Body temperature 98.8 [degF] Yasmine Joaquin Other [facility] Other 02-23-2023 16:25-0400 Body weight 117.94 kg Yasmine Joaquin Other [facility] Other 02-23-2023 16:25-0400 Diastolic blood pressure 70 mm[Hg] Yasmine Joaquin Other [facility] Other 02-23-2023 16:25-0400 Respiratory rate 18 /min Yasmine Joaquin Other [facility] Other 02-23-2023 16:25-0400 SaO2% (BldA) [Mass fraction] 97 % Yasmine Jemal Other [facility] Other 02-23-2023 16:25-0400 Systolic blood pressure 131 mm[Hg] Yasmine Joaquin Other [facility] Other 02-17-2023 10:10-0400 Body height 170.18 cm Emma Guerrero Other [facility] Other 02-17-2023 10:10-0400 Body mass index (BMI) [Ratio] 40.72 kg/m2 Emma Oropezamond Other [facility] Other 02-17-2023 10:10-0400 Body temperature 97.7 [degF] Emma Yolanda Other [facility] Other 02-17-2023 10:10-0400 Body weight 117.94 kg Emma Yolanda Other [facility] Other 02-17-2023 10:10-0400 Respiratory rate 18 /min Emma Oropezamond Other [facility] Other 02-17-2023 10:10-0400 SaO2% (BldA) [Mass fraction] 94 % Emma Yolanda Other [facility] Other 02-15-2022 18:45-0400 Body height 170.18 cm Dimple Milligan Other [facility] Other 02-15-2022 18:45-0400 Body mass index (BMI) [Ratio] 39.46 kg/m2 Dimple Milligan Other [facility] Other 02-15-2022 18:45-0400 Body temperature 98.2 [degF] Dimple Milligan Other [facility] Other 02-15-2022 18:45-0400 Body weight 114.31 kg Dimple Milligan Other [facility] Other 02-15-2022 18:45-0400 Diastolic blood pressure 93 mm[Hg] Dimple Milligan Other [facility] Other 02-15-2022 18:45-0400 Respiratory rate 18 /min Dimple Milligan Other [facility] Other 02-15-2022 18:45-0400 SaO2% (BldA) [Mass fraction] 96 % Dimple Milligan Other [facility] Other 02-15-2022 18:45-0400 Systolic blood pressure 158 mm[Hg] Dimple Milligan Other [facility] Other Encounters Encounter Date Encounter Type Care Provider Facility Start: 03-28-2024 End: 03-28-2024 ambulatory DEBORA E RAMBASEK Not Available Start: 02-21-2024 End: 02-21-2024 ambulatory EHAB [facility] Start: 02-14-2024 End: 02-14-2024 ambulatory ANDRE Yessica GENIE Not Available Start: 11-27-2023 End: 11-27-2023 ambulatory [facility] Start: 11-23-2023 End: 11-23-2023 ambulatory DEBORA E RAMBASEK Not Available Start: 10-09-2023 End: 10-10-2023 ambulatory DEBORA E RAMBASEK Not Available Start: 09-27-2023 End: 09-27-2023 ambulatory DEBORA E RAMBASEK Not Available Start: 05-29-2023 End: 05-29-2023 [facility] Start: 03-15-2023 End: 03-16-2023 ambulatory MARYURI HADDAD Facility:[facility] Start: 02-25-2023 End: 02-25-2023 ambulatory ANABELLE AGGARWAL . Facility:[facility] Start: 02-23-2023 End: 02-23-2023 ambulatory Yasmine Joaquin Other [facility] Other Start: 02-23-2023 Office outpatient vi sit 15 minutes Yasmine Joaquin [facility] Start: 02-17-2023 End: 02-17-2023 ambulatory mEma Guerrero Other [facility] Other Start: 02-17-2023 Office outpatient vi sit 15 minutes Emmakelsea Guerrero [facility] Start: 01-28-2023 Encounter for genera l adult medical examination without abnormal findings DR LAMBERT JOSE . [facility] Start: 01-21-2023 End: 01-22-[address] LAMBERT JOSE . Facility:[facility] Start: 01-21-2023 End: 01-22-2023 Encounter for general adult medical examination without abnormal findings DR LAMBERT JOSE . Facility:[facility] Start: 12-26-2022 End: 12-27-2022 ambulatory MARYURI HADDAD Facility:[facility] Start: 10-01-2022 End: 10-02-[address] INES SERNA Facility:[facility] Start: 09-02-2022 End: 10-12-[address] INES SERNA Facility:[facility] Start: 07-27-2022 End: 07-28-2022 ambulatory MARYURI JESSICA Facility:[facility] Start: 06-30-2022 End: 07-01-2022 ambulatory MARYURI [...] 02-15-2022 End: 02-15-2022 ambulatory Dimple Milligan Other [facility] Other Start: 02-15-2022 Office outpatient vi sit 15 minutes Dimple Milligan [facility] Procedures Date Procedure Procedure Detail Performing Clinician Start: 01-21-2023 PSA screening MARYURI CHAMPION [facility] Comment on above: Performed By: #### P [facility] #### [facility] [address] [place] [address] Dr. Navneet Godwin Payers Date Payer Category Payer Unknown [id number] 2.16.84 0.1.504307.3.579.2.593 1965 Unknown [id number] 2.16.84 0.1.870340.3.579.2.593 1965 Unknown [id number] 2.16.84 0.1.727336.3.579.2.593 1965 Unknown [id number] 2.16.84 0.1.900581.3.579.2.593 1965 Unknown [id number] 2.16.84 0.1.419312.3.579.2.593 1965 Unknown [id number] 2.16.84 0.1.041363.3.579.2.593 1965 Unknown [id number] 2.16.84 0.1.223815.3.579.2.593 1965 Unknown [id number] 2.16.84 0.1.453340.3.579.2.593 1965 Unknown [id number] 2.16.84 0.1.995647.3.579.2.593 1965 Unknown [id number] 2.16.84 0.1.368728.3.579.2.593 1965 Unknown [id number] 2.16.84 0.1.581843.3.579.2.593 1965 Unknown [id number] 2.16.84 0.1.961139.3.579.2.593 1965 Unknown [id number] 2.16.84 0.1.401749.3.579.2.593 1965 Unknown [id number] 2.16.84 0.1.544998.3.579.2.1259 1965 Unknown [id number] 2.16.84 0.1.864126.3.579.2.1259 1965 Unknown [id number] 2.16.84 0.1.217001.3.579.2.1259 1965 Unknown [id number] 2.16.840 .1.218640.3.579.2.1259 1965 Unknown [id number] 2.16.840 .1.680238.3.579.2.1259 1959 Unknown [id number] 2. 16.840.1.618397.19 Social History Date Type Detail Facility Sex Assigned At [facility] Other Progress note 02-21-2024 Note Date & Type Note Facility 02-21-2024 Note [facility] Cardiology Clinic Note Chief Complaint: Patient [...] history of COPD (chronic obstructive pulmonary disease) ([facility]), Coronary artery disease, Hyperlipidemia, Hypertension, [...] Normal cardiac output/cardi (more content not included)... [facility] Progress note 11-27-2023 Note Date & Type Note Facility 11-27-2023 Note [facility] Cardiology Clinic Note Chief Complaint: Patient [...] history of COPD (chronic obstructive pulmonary disease) ([facility]), Coronary artery disease, Hyperlipidemia, Hypertension, [...] plus or min (more content not included)... [facility] Progress note 05-29-2023 Note Date & Type Note Facility 05-29-2023 Note [facility]iology [facility] No te Subjective Paras Grigsby is a 57 y.o. year old male patient with coronary artery disease status post left circumflex PCI in 2021 and hypertension seen in follow-up. seen for No chief complaint on file. Patient Active Problem List Diagnosis Chest pain CAD in chilkoot artery Essential hypertension COPD (chronic obstructive pulmonary disease) ([facility]) S/P drug eluting coronary stent [...] 5. Follow-up with Dr. Serna in the [facility] in the next 2 to 4 [...] 04/18/2022 LV syst (more content not included)... [facility] Progress note 05-29-2023 Note Date & [...] All other systems reviewed and are negative. [facility] Evaluation note 02-23-2023 Note Date & Type Note Facility 02-23-2023 Evaluation note Encounter Date Diagnosis Assessment Notes Feb, Urticaria (ICD-10 - L50.9) Discussed diagnosis with patient. We will send in Rx of prednisone taper to use as directed. Continue ppac-apg-ysbrlhh Benadryl/Zyrtec or Claritin. Advised patient to avoid hot showers/baths encouraged use of cool compresses. Patient needs to follow-up with PCP if this rash does not improve with treatment. Immediate evaluation in ER for signs and symptoms as discussed. Patient verbalizes understanding and is agreeable to treatment plan. [facility] Other Evaluation note 02-17-2023 Note Date & [...] concerns Feb, Acute cough (ICD-10 - R05.1) [facility] Other Evaluation note 02-15-2022 Note Date & Type Note Facility 02-15-2022 Evaluation note Encounter Date Diagnosis Assessment Notes Feb, Infected tooth (ICD-10 - K04.7) Take medications as directed.Highly encourage patient to contact dentist TIARA for further treatment of infection. Do not take OTC medications like ibuprofen with prescriptions [facility] Other History general Narrative - Reported Note Date & Type Note Facility History general Narrative - Reported Type Medical History Benign essential HTN Surgical History knee surgery Surgical History shoulder surgery Surgical History tonsillectomy and adenoidectomy Surgical History wisdom teeth Surgical History vasectomy Hospitalization History see above [facility] Other History general Narrative - Reported Note Date & Type Note Facility History general Narrative - Reported Type Medical History Benign essential HTN Medical History High cholesterol Surgical History knee surgery Surgical History shoulder surgery Surgical History tonsillectomy and adenoidectomy Surgical History wisdom teeth Surgical History vasectomy Surgical History stent 2021 Hospitalization History see above [facility] Other Summary Purpose Family History No Family [...] All Problems COPD exacerbation / SNOMED CT 172499482 / Confirmed BMI 38.0-38.9,adult / SNOMED CT 937716631 / Confirmed Diabetes / SNOMED CT 032012873 / Confirmed new diagnosis on no meds yet Hypertension / SNOMED CT 3306921726 / Confirmed Hypertensive retinopathy / SNOMED CT 75218372 / Confirmed Umbilical hernia / SNOMED CT 7805600393 / Confirmed Resolved: Kidney stone / SNOMED CT 915807475 Physical Examination Vital Signs 10/07/2019 14:40 EST [...] section and content) DATE CREATED AUTHOR 02/03/2020 [place] [facility] DATE CREATED AUTHOR AUTHOR'S ORGANIZ ATION 03/19/2023 [facility] DATE CREATED AUTHOR AUTHOR'S ORGANIZ ATION 03/31/2024 [facility] DATE CREATED AUTHOR AUTHOR'S ORGANIZ ATION 04/20/2024 [facility] REASON FOR VISIT (unrecogniz ed section and [...] BE BASED ON THE PRIMARY CLINICAL RECORDS. [facility]. provides no warranty or guarantee of the accuracy or completeness of information in this document.
[2024-04-24 10:14] LABS: Anion Gap 14.9; BUN Creatinine Ratio 19.4; Calcium 8.4 mg/dL (8.5-10.1); Chloride 109 mmol/L (98-107); Estimated GFR (African America >60 (>=60); Estimated GFR (Non-African Ame 54 (>=60); Glucose 103 mg/dL (74-106); Potassium 3.9 mmol/L (3.5-5.1); Sodium 144 mmol/L (136-145)
== END 2024-04-24 08:30 | disposition home or self-care (01) ==
LOC: LAB 08:31
PROVIDERS: PCP Family Medicine; Visit Provider Family Medicine
DX: N28.9 Disorder of kidney and ureter, unspecified (principal)
CPT/HCPCS: 36415; 80048

== ENCOUNTER 2024-05-27 08:18 | Outpatient (OUT) | payer OTHER, SELFPAY ==
--- NOTE | 2024-05-21 15:00 | CA_ITS ---
Patient Name: PARAS GRIGSYB MR#: [id number] : 1965 Exam Date: 05/21/2024 Ordering Doctor: ISAAC TANG CNP ECHOCARDIOGRAM REPORT PROCEDURE: CA ECHO DOPPLER COMPLETE INDICATIONS: Dyspnea on exertion, CABG COMPARISON: None. DESCRIPTION: COMPLETE ECHOCARDIOGRAM Real-time transthoracic echocardiography with 2D, M-mode, spectral and color flow Doppler performed. QUALITY: Technical quality was good. BSA 2.26 m2 LEFT VENTRICLE: Mild dilatation. Mild concentric left ventricular hypertrophy. Global left ventricular systolic function is normal. LV EF: Visual estimation of left ventricular ejection fraction is 65% DIASTOLIC: ATRIAL SEPTUM: LEFT ATRIUM: Moderate dilatation. RIGHT ATRIUM: Moderate dilatation. RIGHT VENTRICLE: Normal chamber size. Normal right ventricular systolic function. TRICUSPID VALVE: Normal mobility and thickness. No stenosis with mild to moderate regurgitation. Mild pulmonary hypertension. RVSP 38 mmHg MITRAL VALVE: Normal mobility and thickness. No evidence of mitral valve stenosis. Trivial mitral regurgitation. AORTIC VALVE: Normal trileaflet appearance. No visible sclerosis. Normal leaflet mobility. No evidence of aortic valve stenosis. Mild to moderate aortic regurgitation. AORTIC ROOT: Mildly dilated, measuring 4.1 cm. Normal size ascending aorta measuring 3.6 cm. PULMONIC VALVE: Normal thickness and mobility. No stenosis. No regurgitation. PERICARDIUM: No evidence of pericardial effusion. IVC: Dilated, measuring 30 mm. Collapses with inspirations. PLEURA: CONCLUSION: 1. Mild eccentric left ventricular hypertrophy with normal systolic function, LVEF is estimated at 65%. 2. Normal right ventricular size and systolic function. 3. Moderate biatrial dilatation. 4. Mild to moderate aortic and tricuspid regurgitation. 5. Mildly elevated right-sided pressures. RVSP is 38 mmHg. 6. Mildly dilated aortic root measuring 4.1 cm. Adult Echocardiography Procedure Report Left Ventricle LVEDD (3.7 - 5.6 cm): 5.94 cm LVESD (2.2 - 4.0 cm): 3.93 cm LVIVS thickness (0.6 - 1.2 cm): 1.27 cm LVPW thickness (0.5 - 1.0 cm): 1.23 cm e': 0.12 m/s E - e': 8.11 LVOT Max Gradient: 6.60 mm[Hg] LVOT Area (cm2): 1.28 m/s Peak Velocity (LVOT): 1.28 m/s Mean Velocity (LVOT): 0.86 m/s LVOT Diameter 2.12 cm Left Ventricular Ejection Fraction: 65 % Left Atrium LA Volume Index (2D A2C): 53.01 ml/m2 Left Atrium Systolic Dimension: 4.22 cm Mitral Valve MV E to A Ratio: 1.05 Mitral Valve A-Wave Peak Velocity: 0.95 m/s Mitral Valve E-Wave Peak Velocity: 1.00 m/s Right Ventricle RV Internal Diastolic Dimension: 3.84 cm Aorta AO Root Diam: 4.13 cm Ascending Ao Diam: 3.63 cm Aortic Valve AoV Area (Peak Chandler): 2.30 cm2, 2.30 cm2 AoV Area (VTI): 2.68 cm2, 2.68 cm2 Deceleration Crenshaw: 2.33 m/s2 Pressure Half-Time: 469.93 ms Peak Velocity(Antegrade Flow): 1.97 m/s Peak Gradient(Antegrade Flow): 15.50 mm[Hg] Mean Velocity(Antegrade Flow): 1.18 m/s Mean Gradient(Antegrade Flow): 6.66 mm[Hg] Velocity Time Integral: 40.22 cm Tricuspid Valve Peak Velocity (Regurgitant Flow): 2.17 m/s, 2.24 m/s, 2.76 m/s Pulmonic Valve Mean Gradient: 2.98 mm[Hg], 2.76 mm[Hg] Mean Velocity: 0.81 m/s, 0.78 m/s Peak Velocity: 1.11 m/s Peak Gradient: 5.30 mm[Hg], 4.60 mm[Hg] Right Atrium Right Atrium Systolic Pressure: 122.28 ml, 122.28 ml Dictated by: Arturo Yu M.D. on 05/21/2024 at 19:42 Approved by: Arturo Yu M.D. on 05/21/2024 at 19:48
--- OUTSIDE RECORDS SUMMARY | 2024-05-27 08:33 | XMS_ITS | CCD ---
Author Organization [facility] Care Team Providers Care Chain Maker Hand Name Role Phone Dimple Milligan Unavailable YolandaDyanEmma [...] Unavailable HOY ., DR VERDIN Admitting Unavailable TIRO, DR PADMINI Ravi Consulting Unavailable HOY ., [...] HOY ., DR VERDIN Primary Care Unavailable [facility] Consulting Unavailable HOY ., DR VERDIN Primary Care Unavailable [facility] CHAC[facility] Attending Unavailable [place], [...] MARTINA ., DR VERDIN Primary Care Unavailable [facility], DR CHACON Attending Unavailable [place], DR CHACON Admitting Unavailable RAMBASEKDEBORA Attending Unavailable RAMBASEK, DEBORA Lynch Attending Unavailable RAMBASEKDEBORA Referring Unavailable ANDRE PRESCOTT Attending Unavailable DEBORA ROBLES Attending Unavailable CECI LEE Attending [facility] Attending [facility] Attending Unavailable ISAAC TANG Attending Unavailable Medications Current Medications Medication Drug [...] disease (7 sources) Atherosclerotic heart disease of [place] coronary artery without angina pectoris; Translations: [Coronary [...] 03-15-2023 Episodic Other aftercare (1 source) Other oysterman (current) drug therapy; Translations: [OTH CANVASS MANAGER CURRENT DRUG THERAPY] Onset: 03-18-2023 Episodic Other aftercare (1 source) jail (current) use of aspirin; Translations: [CANVASS MANAGER CURRENT USE OF ASPIRIN] Onset: 02-27-2023 Episodic Other lower respiratory disease (2 sources) Other forms of dyspnea; Translations: [Other forms of dyspnea] Onset: 05-29-2023 Episodic Other screening for suspected conditions (not [...] Test Name Value Interpretation Reference Range Facility Office Visiton 04-30-2024 Follow-up visit [id number] Jada Grigsby 1965 M Date Provider Department Center 04/30/2024 ISAAC TELLEZ Family History Problem Relation Age of Onset Heart failure Father Coronary artery disease Father Family Status - Relation Status Age at Father Level of Service:84166 [place] OFFICE/OUTPATIENT ESTABLISHED MOD MDM 30 MIN Reason for Visit and Comments: Shortness of Breath [059342] Coronary Artery Disease [187] [facility] 36on 04-19-2024 [address] tried to call [address]. Jose's office back on this. No VM. Can you please follow up on this and try to call them Monday? Thanks. [facility] 36 Good morning. I was off yesterday, but Atul left me a message about this patient. She said Dr. Jose's office called and asked what the plan was with this patient's recent stress test. When I got in today, I realized that you didn't order it. Dr. Jose did. I scanned it into FromUs for you to review. Thanks. [facility] 36on 02-22-2024 36 Regarding lab result s from 02/21/2024: MD Karon Crain MA Great. Please let the patient know his serum creatinine is back to normal. No changes in medications. Thanks LM on VM. [facility] Office Visiton 02-21-2024 Follow-up visit [id number] Jada Grigsby 1965 M Date Provider Department Center 02/21/2024 INES MACEDO Family History Problem Relation Age of Onset Heart failure Father Coronary artery disease Father Family Status - Relation Status Age at Father Level of Service:83972 ND OFFICE/OUTPATIENT ESTABLISHED MOD MDM 30 MIN [facility] Office Visiton 11-27-2023 Follow-up visit [id number] TanikamindyJada 1965 M Date Provider Department Center 11/27/2023 Delaney-INES SERNA CARD [facility] Family History Problem Relation Age of Onset Heart failure Father Coronary artery disease Father Family Status - Relation Status Age at Father Level of Service:75783 ND OFFICE/OUTPATIENT ESTABLISHED MOD MDM 30 MIN [facility] Orders Onlyon 06-21-2023 Orders Only [id number] Jada Grigsby 1965 M Date Provider Department Center 06/21/2023 ATUL DIETZ CARD [facility] Family History Problem Relation Age of Onset Heart failure Father Coronary artery disease Father Family Status - Relation Status Age at Father [facility] 36on 06-19-2023 36 Please advise BP are higher than recommended targets. He can double on his Lisinopril and get BMP in 1 week after changes. Please send script and lab order. Thanks. Normal [facility] Office Visiton 05-29-2023 Follow-up visit [id number] Jada Grigsby 1965 M Date Provider Department Center 05/29/2023 [id number] RAMACHANDRAN GENNARO Zelaya [facility] Family History Problem Relation Age of Onset Heart failure Father Coronary artery disease Father Family Status - Relation Status Age at Father Level of Service:87857 [place] OFFICE/OUTPATIENT ESTABLISHED LOW MDM 20-29 MIN [facility] THEOPHYLLINEon 03-15-2023 THEOPHYLLINE 5.9 ug/mL Critically low 10.0-20.0 [facility] Comment on above: Performed By: #### T ALAN #### [facility] [address] [address] [address] Navneet Godwin CHUCKIE by IFAon 01-23-2023 Antinuclear Antibodies, IFA Positive Abnormal [facility] Comment on above: Result Comment: Nega tive <1:80 Borderline 1:80 Positive >1:80 Performed By: #### C BC #### [facility] [address] [address] [address] Navneet Godwin Centriole Pattern Normal [facility] Comment on above: Performed By: #### C BC #### [facility] [address] [address] [address] Navneet Godwin Centromere Pattern Normal [facility] Comment on above: Performed By: #### C BC #### [facility] [address] [address] [address] Navneet Godwin Homogeneous Pattern 1:80 Normal [facility] Comment on above: Result Comment: ICAP nomenclature: AC-1 Performed By: #### C BC #### [facility] [address] [address] [address] Navneet Godwin Midbody Pattern Normal [facility] Comment on above: Performed By: #### C BC #### [facility] [address] [address] [address] Navneet Godwin Note: Comment Normal [facility] Comment on above: Result Comment: For [...] titers Nucleosomes, Histones Drug-induced SLE Speckled Sm, CHEMICAL PROCESS EQUIPMENT OPERATOR, SCL-70, SLE,MCTD,PSS (diffuse form), SS-A/SS-B Sjogrens Nucleolar SCL-70, PM-1/SCL High titers Scleroderma, PM/DM Centromere Centromere PSS (limited form) w/Crest syndrome variable Nuclear Dot [id number] Primary Biliary Cirrhosis Nuclear GP210, Primary Biliary Cirrhosis Membrane ofelia A,B,C Performed By: #### C BC #### [facility] [address] [place] [address] Dr. Navneet Godwin Nuclear Dot Pattern Normal [facility] Comment on above: Performed By: #### C BC #### [facility] [address] [address] [address] Navneet Godwin Nuclear Membrane Pattern Normal [facility] Comment on above: Performed By: #### C BC #### [facility] [address] [address] [address] Navneet Godwin Nucleolar Pattern Normal [facility] Comment on above: Performed By: #### C BC #### [facility] [address] [place] [address] Dr. Navneet Godwin PCNA Pattern Normal [facility] Comment on above: Performed By: #### C BC #### [facility] [address] [address] [address] Navneet Godwin Speckled Pattern Normal [facility] Comment on above: Performed By: #### C BC #### [facility] [address] [address] [address] Navneet Godwin Spindle Apparatus Pattern Normal [facility] Comment on above: Performed By: #### C BC #### [facility] [address] [place] [address] Dr. Navneet Godwin INSULINon 01-23-2023 Insulin 50.9 uIU/mL Critically high 2.6-24.9 [facility] Comment on above: Performed By: #### I NSULIN #### [facility] [address] [place] [address] Dr. Navneet Godwin ANTISTREPTOLYSIN O AB (ASO)o n 01-22-2023 Antistreptolysin O Ab 55.6 IU/mL Normal 0.0-200.0 [facility] Comment on above: Performed By: #### H GB #### [facility] [address] [place] [address] Dr. Navneet Godwin RHEUMATOID FACTORon 01-23-20 23 RA Latex Turbid. <10.0 Normal <14.0 [facility] Comment on above: Performed By: #### H GB #### [facility] [address] [place] [address] Dr. Navneet Godwin CBC AUTO DIFFon 01-21-2023 BASO # 0.0 103/ul Normal 0.0-0.1 [facility] Comment on above: Performed By: #### C BC #### [facility] [address] [place] [address] Dr. Navneet Godwin Basophils/100 WBC (Bld) 0.8 % Normal 0.2-2.0 [facility] Comment on above: Performed By: #### C BC #### [facility] [address] [place] [address] Dr. Navneet Godwin EO # 0.1 103/ul Normal 0.0-0.7 [facility] Comment on above: Performed By: #### C BC #### [facility] [address] [place] [address] Dr. Navneet Godwin Eosinophils/100 WBC (Bld) 2.1 % Normal 0.9-7.0 [facility] Comment on above: Performed By: #### C BC #### [facility] [address] [place] [address] Dr. Navneet Godwin Erythrocyte distribution width (RBC) [Ratio] 13.7 % Normal 11.0-15.0 [facility] Comment on above: Performed By: #### C BC #### [facility] [address] [place] [address] Dr. Navneet Godwin Hematocrit (Bld) [Volume fraction] 37.6 % Critically low 42.0-54.0 [facility] Comment on above: Performed By: #### C BC #### [facility] [address] [place] [address] Dr. Navneet Godwin Hemoglobin (Bld) [Mass/Vol] 12.7 g/dL Critically low 14.0-18.0 [facility] Comment on above: Performed By: #### C BC #### [facility] [address] [place] [address] Dr. Navneet Godwin IG # 0.01 10e3/ul Normal 0.00-0.03 [facility] Comment on above: Performed By: #### C BC #### [facility] [address] [place] [address] Dr. Navneet Godwin IG % 0.2 % Normal 0.0-0.5 [facility] Comment on above: Performed By: #### C BC #### [facility] [address] [place] [address] Dr. Navneet Godwin LYMPH # 1.8 103/ul Normal 1.2-3.8 [facility] Comment on above: Performed By: #### C BC #### [facility] [address] [place] [address] Dr. Navneet Godwin Lymphocytes/100 WBC (Bld) 33.1 % Normal 20.5-60.0 [facility] Comment on above: Performed By: #### C BC #### [facility] [address] [place] [address] Dr. Navneet Godwin MANUAL DIFF REQ NO Normal [facility] Comment on above: Performed By: #### C BC #### [facility] [address] [place] [address] Dr. Navneet Godwin MCH (RBC) [Entitic mass] 29.4 pg Normal 25.9-34.0 [facility] Comment on above: Performed By: #### C BC #### [facility] [address] [place] [address] Dr. Navneet Godwin MCHC (RBC) [Mass/Vol] 33.8 g/dL Normal 29.9-35.2 [facility] Comment on above: Performed By: #### C BC #### [facility] [address] [place] [address] Dr. Navneet Godwin MCV (RBC) [Entitic vol] 87.0 fL Normal 80.0-94.0 [facility] Comment on above: Performed By: #### C BC #### [facility] [address] [place] [address] Dr. Navneet Godwin MONO # 0.4 103/ul Normal 0.3-0.8 [facility] Comment on above: Performed By: #### C BC #### [facility] [address] [place] [address] Dr. Navneet Godwin Monocytes/100 WBC (Bld) 8.1 % Normal 1.7-12.0 [facility] Comment on above: Performed By: #### C BC #### [facility] [address] [place] [address] Dr. Navneet Godwin NEUT # 2.9 103/ul Normal 1.4-6.5 [facility] Comment on above: Performed By: #### C BC #### [facility] [address] [address] [address] Navneet Godwin Neutrophils/100 WBC (Bld) 55.7 % Normal 43.0-75.0 [facility] Comment on above: Performed By: #### C BC #### [facility] [address] [place] [address] Dr. Navneet Godwin Platelet mean volume (Bld) [Entitic vol] 10.6 fL Normal 9.5-13.5 [facility] Comment on above: Performed By: #### C BC #### [facility] [address] [address] [address] Navneet Godwin PLT 236 103/ul Normal 150-450 [facility] Comment on above: Performed By: #### C BC #### [facility] [address] [place] [address] Dr. Navneet Godwin RBC 4.32 106/ul Critically low 4.70-6.10 [facility] Comment on above: Performed By: #### C BC #### [facility] [address] [place] [address] Dr. Navneet Godwin WBC 5.3 103/ul Normal 4.0-11.0 [facility] Comment on above: Performed By: #### C BC #### [facility] [address] [place] [address] Dr. Navneet Godwin CRPon 01-21-2023 CRP [Mass/Vol] mg/L Normal <=1.0 [facility] Comment on above: Performed By: #### H GB #### [facility] [address] [place] [address] Dr. Navneet Godwin FREE THYROXINE INDEX T7on FTI 2.59 Normal 1.30-4.50 [facility] Comment on above: Performed By: #### C BC #### [facility] [address] [place] [address] Dr. Navneet Godwin T3U 32.0 % Critically low 33.0-40.0 [facility] Comment on above: Performed By: #### C BC #### [facility] [address] [address] [address] Navneet Godwin T4 [Mass/Vol] 8.10 ug/dL Normal 4.50-12.10 [facility] Comment on above: Performed By: #### C BC #### [facility] [address] [address] [address] Navneet Godwin GLYCOHEMOGLOBIN A1Con 2022 ADA RECOMMENDATION SEE BELOW Normal [facility] Comment on above: Result Comment: ADA RECOMMENDED LIMIT 4.0 - 6.0 ADA THERAPEUTIC TARGET < 7.0 ACTION SUGGESTED > 7.0 Performed By: #### H GB #### [facility] [address] [place] [address] Dr. Navneet Godwin Glucose [Mass/Vol] 126 mg/dL Normal [facility] Comment on above: Performed By: #### H GB #### [facility] [address] [place] [address] Dr. Navneet Godwin HbA1c (Bld) [Mass fraction] 6.0 % Normal 4.5-6.2 [facility] Comment on above: Performed By: #### H GB #### [facility] [address] [place] [address] Dr. Navneet Godwin LIPID PROFILEon 01-21-2023 CHOL-HDL RATIO NORM SEE BELOW Normal [facility] Comment on above: Result Comment: 3.3 - 4.4 LOW RISK 4.4 - 7.1 AVERAGE RISK 7.1 - 11.0 MODERATE RISK >11.0 HIGH RISK Performed By: #### C BC #### [facility] [address] [place] [address] Dr. Navneet Godwin Cholesterol [Mass/Vol] 96 mg/dL Normal <=200 [facility] Comment on above: Performed By: #### C BC #### [facility] [address] [place] [address] Dr. Navneet Godwin Cholesterol in HDL [Mass/Vol] 45 mg/dL Normal 40-60 [facility] Comment on above: Performed By: #### C BC #### [facility] [address] [place] [address] Dr. Navneet Godwin Cholesterol in LDL [Mass/Vol] 37.2 mg/dL Normal [facility] Comment on above: Performed By: #### C BC #### [facility] [address] [address] [address] Navneet Godwin Cholesterol.total/C holesterol in HDL [Mass ratio] 2.1 {ratio} Normal [facility] Comment on above: Performed By: #### C BC #### [facility] [address] [address] [address] Navneet Godwin HDL NORMAL > or = 60 mg/dl - LO W CARDIOVASCULAR RISK <40 mg/dl - HIGH CARDIOVASCULAR RISK Normal [facility] Comment on above: Performed By: #### C BC #### [facility] [address] [place] [address] Dr. Navneet Godwin LDL CALC NORMAL SEE BELOW Normal [facility] Comment on above: Result Comment: <100 mg/dl OPTIMAL 100 - 129 mg/dl NEAR OR ABOVE OPTIMAL 130 - 159 mg/dl BORDERLINE HIGH 160 - 189 mg/dl HIGH >190 mg/dl VERY HIGH Performed By: #### C BC #### [facility] [address] [address] [address] Navneet Godwin Triglyceride [Mass/Vol] 69 mg/dL Normal <=150 [facility] Comment on above: Performed By: #### C BC #### [facility] [address] [place] [address] Dr. Navneet Godwin VLDL CALC 13.8 mg/dL Normal [facility] Comment on above: Performed By: #### C BC #### [facility] [address] [address] [address] Navneet Godwin OCC BLD IMMUNO SCREENon 01-04 OCCULT BLOOD Negative Normal NEGATIVE [facility] Comment on above: Performed By: #### O BSCRN #### [facility] [address] [place] [address] Dr. Navneet Godwin PROF 14(COMP METB)on 023 Albumin [Mass/Vol] 4.1 g/dL Normal 3.4-5.0 [facility] Comment on above: Performed By: #### C BC #### [facility] [address] [address] [address] Navneet Godwin Albumin/Globulin [Mass ratio] 1.4 {ratio} Normal [facility] Comment on above: Performed By: #### C BC #### [facility] [address] [place] [address] Dr. Navneet Godwin ALP [Catalytic activity/Vol] 40 U/L Critically low 46-116 [facility] Comment on above: Performed By: #### C BC #### [facility] [address] [place] [address] Dr. Navneet Godwin ALT [Catalytic activity/Vol] 33 U/L Normal 16-63 [facility] Comment on above: Performed By: #### C BC #### [facility] [address] [place] [address] Dr. Navneet Godwin Anion gap [Moles/Vol] 14.6 mmol/L Normal [facility] Comment on above: Performed By: #### C BC #### [facility] [address] [place] [address] Dr. Navneet Godwin AST [Catalytic activity/Vol] 33 U/L Normal 15-37 [facility] Comment on above: Performed By: #### C BC #### [facility] [address] [place] [address] Dr. Navneet Godwin Bilirubin [Mass/Vol] 0.4 mg/dL Normal 0.2-1.0 [facility] Comment on above: Performed By: #### C BC #### [facility] [address] [place] [address] Dr. Navneet Godwin Calcium [Mass/Vol] 9.2 mg/dL Normal 8.5-10.1 [facility] Comment on above: Performed By: #### C BC #### [facility] [address] [place] [address] Dr. Navneet Godwin Chloride [Moles/Vol] 109 mmol/L Critically high 98-107 [facility] Comment on above: Performed By: #### C BC #### [facility] [address] [place] [address] Dr. Navneet Godwin CO2 [Moles/Vol] 23.1 mmol/L Normal 21.0-32.0 [facility] Comment on above: Performed By: #### C BC #### [facility] [address] [place] [address] Dr. Navneet Godwin Creatinine [Mass/Vol] 1.12 mg/dL Normal 0.70-1.30 [facility] Comment on above: Performed By: #### C BC #### [facility] [address] [place] [address] Dr. Navneet Godwin EGFR-AF TOGOLESE >60 Normal >=60 [facility] Comment on above: Performed By: #### C BC #### [facility] [address] [place] [address] Dr. Navneet Godwin EGFR-NON AF TOGOLESE >60 Normal >=60 [facility] Comment on above: Performed By: #### C BC #### [facility] [address] [place] [address] Dr. Navneet Godwin Globulin (S) [Mass/Vol] 2.9 g/dL Normal [facility] Comment on above: Performed By: #### C BC #### [facility] [address] [place] [address] Dr. Navneet Godwin Glucose [Mass/Vol] 109 mg/dL Critically high 74-106 [facility] Comment on above: Performed By: #### C BC #### [facility] [address] [place] [address] Dr. Navneet Godwin Potassium [Moles/Vol] 3.7 mmol/L Normal 3.5-5.1 [facility] Comment on above: Performed By: #### C BC #### [facility] [address] [place] [address] Dr. Navneet Godwin Protein [Mass/Vol] 7.0 g/dL Normal 6.4-8.2 [facility] Comment on above: Performed By: #### C BC #### [facility] [address] [place] [address] Dr. Navneet Godwin Sodium [Moles/Vol] 143 mmol/L Normal 136-145 [facility] Comment on above: Performed By: #### C BC #### [facility] [address] [place] [address] Dr. Navneet Godwin Urea nitrogen [Mass/Vol] 18.0 mg/dL Normal 7.0-18.0 [facility] Comment on above: Performed By: #### C BC #### [facility] [address] [address] [address] Navneet Godwin Urea nitrogen/Creatinine [Mass ratio] 16.1 mg/mg Normal [facility] Comment on above: Performed By: #### C BC #### [facility] [address] [place] [address] Dr. Navneet Godwin TSHon 01-21-2023 TSH 1.912 uIU/mL Normal 0.358-3.740 [facility] Comment on above: Performed By: #### H GB #### [facility] [address] [place] [address] Dr. Navneet Godwin URIC ACID SERUMon 01-21-2023 Urate [Mass/Vol] 6.9 mg/dL Normal 3.5-7.2 [facility] Comment on above: Performed By: #### H GB #### [facility] [address] [place] [address] Dr. Navneet Godwin THEOPHYLLINEon 12-26-2022 THEOPHYLLINE 5.3 ug/mL Critically low 10.0-20.0 [facility] Comment on above: Performed By: #### C BC #### [facility] [address] [place] [address] Dr. Navneet Godwin LIPID PROFILEon 10-01-2022 CHOL-HDL RATIO NORM SEE BELOW Normal [facility] Comment on above: Result Comment: 3.3 - 4.4 LOW RISK 4.4 - 7.1 AVERAGE RISK 7.1 - 11.0 MODERATE RISK >11.0 HIGH RISK Performed By: #### L IPID, CMP #### [facility] [address] [place] [address] Dr. Navneet Godwin Cholesterol [Mass/Vol] 92 mg/dL Normal <=200 [facility] Comment on above: Performed By: #### L IPID, CMP #### [facility] [address] [address] [address] Navneet Godwin Cholesterol in HDL [Mass/Vol] 40 mg/dL Normal 40-60 [facility] Comment on above: Performed By: #### L IPID, CMP #### [facility] [address] [address] [address] Navneet Godwin Cholesterol in LDL [Mass/Vol] 33.2 mg/dL Normal [facility] Comment on above: Performed By: #### L IPID, CMP #### [facility] [address] [address] [address] Navneet Godwin Cholesterol.total/C holesterol in HDL [Mass ratio] 2.3 {ratio} Normal [facility] Comment on above: Performed By: #### L IPID, CMP #### [facility] [address] [place] [address] Dr. Navneet Godwin HDL NORMAL > or = 60 mg/dl - LO W CARDIOVASCULAR RISK <40 mg/dl - HIGH CARDIOVASCULAR RISK Normal [facility] Comment on above: Performed By: #### L IPID, CMP #### [facility] [address] [address] [address] Navneet Godwin LDL CALC NORMAL SEE BELOW Normal [facility] Comment on above: Result Comment: <100 mg/dl OPTIMAL 100 - 129 mg/dl NEAR OR ABOVE OPTIMAL 130 - 159 mg/dl BORDERLINE HIGH 160 - 189 mg/dl HIGH >190 mg/dl VERY HIGH Performed By: #### L IPID, CMP #### [facility] [address] [address] [address] Navneet Godwin Triglyceride [Mass/Vol] 94 mg/dL Normal <=150 [facility] Comment on above: Performed By: #### L IPID, CMP #### [facility] [address] [place] [address] Dr. Navneet Godwin VLDL CALC 18.8 mg/dL Normal [facility] Comment on above: Performed By: #### L IPID, CMP #### [facility] [address] [address] [address] Navneet Godwin PROF 14(COMP METB)on 022 Albumin [Mass/Vol] 3.6 g/dL Normal 3.4-5.0 [facility] Comment on above: Performed By: #### L IPID, CMP #### [facility] [address] [place] [address] Dr. Navneet Godwin Albumin/Globulin [Mass ratio] 1.2 {ratio} Normal [facility] Comment on above: Performed By: #### L IPID, CMP #### [facility] [address] [address] [address] Navneet Godwin ALP [Catalytic activity/Vol] 45 U/L Critically low 46-116 [facility] Comment on above: Performed By: #### L IPID, CMP #### [facility] [address] [place] [address] Dr. Navneet Godwin ALT [Catalytic activity/Vol] 25 U/L Normal 16-63 [facility] Comment on above: Performed By: #### L IPID, CMP #### [facility] [address] [place] [address] Dr. Navneet Godwin Anion gap [Moles/Vol] 13.5 mmol/L Normal [facility] Comment on above: Performed By: #### L IPID, CMP #### [facility] [address] [place] [address] Dr. Navneet Godwin AST [Catalytic activity/Vol] 37 U/L Normal 15-37 [facility] Comment on above: Performed By: #### L IPID, CMP #### [facility] [address] [place] [address] Dr. Navneet Godwin Bilirubin [Mass/Vol] 0.4 mg/dL Normal 0.2-1.0 [facility] Comment on above: Performed By: #### L IPID, CMP #### [facility] [address] [place] [address] Dr. Navneet Godwin Calcium [Mass/Vol] 8.9 mg/dL Normal 8.5-10.1 [facility] Comment on above: Performed By: #### L IPID, CMP #### [facility] [address] [address] [address] Navneet Godwin Chloride [Moles/Vol] 109 mmol/L Critically high 98-107 [facility] Comment on above: Performed By: #### L IPID, CMP #### [facility] [address] [address] [address] Navneet Godwin CO2 [Moles/Vol] 25.3 mmol/L Normal 21.0-32.0 [facility] Comment on above: Performed By: #### L IPID, CMP #### [facility] [address] [address] [address] Navneet Godwin Creatinine [Mass/Vol] 1.07 mg/dL Normal 0.70-1.30 [facility] Comment on above: Performed By: #### L IPID, CMP #### [facility] [address] [place] [address] Dr. Navneet Godwin EGFR-AF TOGOLESE >60 Normal >=60 [facility] Comment on above: Performed By: #### L IPID, CMP #### [facility] [address] [address] [address] Navneet Godwin EGFR-NON AF TOGOLESE >60 Normal >=60 [facility] Comment on above: Performed By: #### L IPID, CMP #### [facility] [address] [place] [address] Dr. Navneet Godwin Globulin (S) [Mass/Vol] 3.1 g/dL Normal [facility] Comment on above: Performed By: #### L IPID, CMP #### [facility] [address] [address] [address] Navneet Godwin Glucose [Mass/Vol] 115 mg/dL Critically high 74-106 [facility] Comment on above: Performed By: #### L IPID, CMP #### [facility] [address] [address] [address] Navneet Godwin Potassium [Moles/Vol] 3.8 mmol/L Normal 3.5-5.1 [facility] Comment on above: Performed By: #### L IPID, CMP #### [facility] [address] [place] [address] Dr. Navneet Godwin Protein [Mass/Vol] 6.7 g/dL Normal 6.4-8.2 [facility] Comment on above: Performed By: #### L IPID, CMP #### [facility] [address] [place] [address] Dr. Navneet Godwin Sodium [Moles/Vol] 144 mmol/L Normal 136-145 [facility] Comment on above: Performed By: #### L IPID, CMP #### [facility] [address] [place] [address] Dr. Navneet Godwin Urea nitrogen [Mass/Vol] 21.0 mg/dL Critically high 7.0-18.0 [facility] Comment on above: Performed By: #### L IPID, CMP #### [facility] [address] [place] [address] Dr. Navneet Godwin Urea nitrogen/Creatinine [Mass ratio] 19.6 mg/mg Normal [facility] Comment on above: Performed By: #### L IPID, CMP #### [facility] [address] [place] [address] Dr. Navneet Godwin ASPERGILLUS AB, QUANTITATIVE DIDon 07-08-2022 Aspergillus flavus Negative Normal Neg:<1:1 [facility] Comment on above: Performed By: #### C BC #### [facility] [address] [place] [address] Dr. Navneet Godwin Aspergillus fumigatus Negative Normal Neg:<1:1 [facility] Comment on above: Performed By: #### C BC #### [facility] [address] [place] [address] Dr. Navneet Godwin Aspergillus niger Negative Normal Neg:<1:1 [facility] Comment on above: Performed By: #### C BC #### [facility] [address] [place] [address] Dr. Navneet Godwin IMMUNOGLOBULIN E, TOTALon Immunoglobulin E, Total 102 IU/mL Normal 6-495 [facility] Comment on above: Performed By: #### C BC #### [facility] [address] [place] [address] Dr. Navneet Godwin ANTI NEUTROPHIL CYTOPLASMIC AB (ANCA) PRon 07-05-2022 Anti-MPO Antibodies <0.2 Normal 0.0-0.9 [facility] Comment on above: Result Comment: Perf ormed at: BN Performed By: #### H GB #### [facility] [address] [place] [address] Dr. Navneet Godwin Anti-PR3 Antibodies <0.2 Normal 0.0-0.9 [facility] Comment on above: Result Comment: Perf ormed at: BN Performed By: #### H GB #### [facility] [address] [place] [address] Dr. Navneet Godwin Atypical pANCA <1:20 Normal Neg:<1:20 [facility] Comment on above: Result Comment: The atypical pANCA pattern has been observed in a significant percentage of patients with ulcerative colitis, primary sclerosing cholangitis and autoimmune hepatitis. Performed at: CB Performed By: #### H GB #### [facility] [address] [place] [address] Dr. Navneet Godwin Cytoplasmic (C-ANCA) <1:20 Normal Neg:<1:20 [facility] Comment on above: Result Comment: Perf ormed at: CB Performed By: #### H GB #### [facility] [address] [place] [address] Dr. Navneet Godwin Perinuclear (P-ANCA) <1:20 Normal Neg:<1:20 [facility] Comment on above: Result Comment: The presence of positive fluorescence exhibiting P-ANCA or C-ANCA patterns alone is not specific for the diagnosis of Phoenix's Granulomatosis (WG) or microscopic polyangiitis. Decisions about treatment should not be based solely on ANCA IFA results. The International ANCA Group Consensus recommends follow up testing of positive sera with both ND-3 and MPO-ANCA enzyme immunoassays. As many as 5% serum samples are positive only by EIA. Ref. AM J Clin Pathol 1999;111:507-513. Performed at: CB Performed By: #### H GB #### [facility] [address] [place] [address] Dr. Navneet Godwin CBC AUTO DIFFon 06-30-2022 BASO # 0.0 103/ul Normal 0.0-0.1 [facility] Comment on above: Performed By: #### C BC #### [facility] [address] [place] [address] Dr. Navneet Godwin Basophils/100 WBC (Bld) 0.7 % Normal 0.2-2.0 [facility] Comment on above: Performed By: #### C BC #### [facility] [address] [place] [address] Dr. Navneet Godwin EO # 0.1 103/ul Normal 0.0-0.7 [facility] Comment on above: Performed By: #### C BC #### [facility] [address] [place] [address] Dr. Navneet Godwin Eosinophils/100 WBC (Bld) 1.9 % Normal 0.9-7.0 [facility] Comment on above: Performed By: #### C BC #### [facility] [address] [place] [address] Dr. Navneet Godwin Erythrocyte distribution width (RBC) [Ratio] 12.5 % Normal 11.0-15.0 [facility] Comment on above: Performed By: #### C BC #### [facility] [address] [place] [address] Dr. Navneet Godwin Hematocrit (Bld) [Volume fraction] 38.6 % Critically low 42.0-54.0 [facility] Comment on above: Performed By: #### C BC #### [facility] [address] [place] [address] Dr. Navneet Godwin Hemoglobin (Bld) [Mass/Vol] 12.9 g/dL Critically low 14.0-18.0 [facility] Comment on above: Performed By: #### C BC #### [facility] [address] [place] [address] Dr. Navneet Godwin IG # 0.01 10e3/ul Normal 0.00-0.03 [facility] Comment on above: Performed By: #### C BC #### [facility] [address] [place] [address] Dr. Navneet Godwin IG % 0.2 % Normal 0.0-0.5 [facility] Comment on above: Performed By: #### C BC #### [facility] [address] [place] [address] Dr. Navneet Godwin LYMPH # 2.4 103/ul Normal 1.2-3.8 [facility] Comment on above: Performed By: #### C BC #### [facility] [address] [place] [address] Dr. Navneet Godwin Lymphocytes/100 WBC (Bld) 41.7 % Normal 20.5-60.0 [facility] Comment on above: Performed By: #### C BC #### [facility] [address] [place] [address] Dr. Navneet Godwin MANUAL DIFF REQ NO Normal [facility] Comment on above: Performed By: #### C BC #### [facility] [address] [place] [address] Dr. Navneet Godwin MCH (RBC) [Entitic mass] 29.8 pg Normal 25.9-34.0 [facility] Comment on above: Performed By: #### C BC #### [facility] [address] [place] [address] Dr. Navneet Godwin MCHC (RBC) [Mass/Vol] 33.4 g/dL Normal 29.9-35.2 [facility] Comment on above: Performed By: #### C BC #### [facility] [address] [place] [address] Dr. Navneet Godwin MCV (RBC) [Entitic vol] 89.1 fL Normal 80.0-94.0 [facility] Comment on above: Performed By: #### C BC #### [facility] [address] [place] [address] Dr. Navneet Godwin MONO # 0.6 103/ul Normal 0.3-0.8 [facility] Comment on above: Performed By: #### C BC #### [facility] [address] [place] [address] Dr. Navneet Godwin Monocytes/100 WBC (Bld) 10.5 % Normal 1.7-12.0 [facility] Comment on above: Performed By: #### C BC #### [facility] [address] [place] [address] Dr. Navneet Godwin NEUT # 2.6 103/ul Normal 1.4-6.5 [facility] Comment on above: Performed By: #### C BC #### [facility] [address] [place] [address] Dr. Navneet Godwin Neutrophils/100 WBC (Bld) 45.0 % Normal 43.0-75.0 [facility] Comment on above: Performed By: #### C BC #### [facility] [address] [place] [address] Dr. Navneet Godwin Platelet mean volume (Bld) [Entitic vol] 10.1 fL Normal 9.5-13.5 [facility] Comment on above: Performed By: #### C BC #### [facility] [address] [place] [address] Dr. Navneet Godwin PLT 296 103/ul Normal 150-450 [facility] Comment on above: Performed By: #### C BC #### [facility] [address] [place] [address] Dr. Navneet Godwin RBC 4.33 106/ul Critically low 4.70-6.10 [facility] Comment on above: Performed By: #### C BC #### [facility] [address] [place] [address] Dr. Navneet Godwin WBC 5.8 103/ul Normal 4.0-11.0 [facility] Comment on above: Performed By: #### C BC #### [facility] [address] [place] [address] Dr. Navneet Godwin PROF CHEM 8 (BAS METB)on Anion gap [Moles/Vol] 13.2 mmol/L Normal [facility] Comment on above: Performed By: #### B MP #### [facility] [address] [place] [address] Dr. Navneet Godwin Calcium [Mass/Vol] 9.1 mg/dL Normal 8.5-10.1 [facility] Comment on above: Performed By: #### B MP #### [facility] [address] [address] [address] Navneet Godwin Chloride [Moles/Vol] 106 mmol/L Normal 98-107 [facility] Comment on above: Performed By: #### B MP #### [facility] [address] [address] [address] Navneet Godwin CO2 [Moles/Vol] 23.7 mmol/L Normal 21.0-32.0 [facility] Comment on above: Performed By: #### B MP #### [facility] [address] [place] [address] Dr. Navneet Godwin Creatinine [Mass/Vol] 1.06 mg/dL Normal 0.70-1.30 [facility] Comment on above: Performed By: #### B MP #### [facility] [address] [place] [address] Dr. Navneet Godwin EGFR-AF TOGOLESE >60 Normal >=60 [facility] Comment on above: Performed By: #### B MP #### [facility] [address] [place] [address] Dr. Navneet Godwin EGFR-NON AF TOGOLESE >60 Normal >=60 [facility] Comment on above: Performed By: #### B MP #### [facility] [address] [address] [address] Navneet Godwin Glucose [Mass/Vol] 94 mg/dL Normal 74-106 [facility] Comment on above: Performed By: #### B MP #### [facility] [address] [address] [address] Navneet Godwin Potassium [Moles/Vol] 3.9 mmol/L Normal 3.5-5.1 [facility] Comment on above: Performed By: #### B MP #### [facility] [address] [place] [address] Dr. Navneet Godwin Sodium [Moles/Vol] 139 mmol/L Normal 136-145 [facility] Comment on above: Performed By: #### B MP #### [facility] [address] [place], [place] [address] Dr. Navneet Godwin Urea nitrogen [Mass/Vol] 17.0 mg/dL Normal 7.0-18.0 [facility] Comment on above: Performed By: #### B MP #### [facility] [address] [place], [place] [address] Dr. Navneet Godwin Urea nitrogen/Creatinine [Mass ratio] 16.0 mg/mg Normal [facility] Comment on above: Performed By: #### B MP #### [facility] [address] [place], [place] [address] Dr. Navneet Godwin XR CHEST 2 Von [...] by: MICKY MORENO Date: 2022-05-30 10:52 Normal [facility] ECHOCARDIO M/2D COMPLETEon 0 04-18-2022 ECHOCARDIO M/2D COMPLETE Patient: PARAS GRIGSBY Exam Date: 04/18/2022 : 1965 Gender:M Ordering : DR LAMBERT JOSE . Admission #: [id number] Family : Order #: [id number] CLICK HERE TO VIEW EXAM ECHOCARDIOGRAM REPORT [...] Area(A4C): 16.30 cm2 Left Atrium Systolic Volume(A2C): 82614 mm3 Left Atrium Systolic Volume(A4C): 13547 mm3 Mitral Valve MV E to A [...] Yu M.D. on 04/19/2022 at 18:16 Normal [facility] CTA CHEST WO W CONon 022 CTA CHEST WO W CON EXAMINATION: CTA YOU ST W CON HISTORY: Dyspnea COMPARISON: 01/21/2022 chest [...] PADMINI WHITE Date: 2022-04-11 07:16 Normal [facility] HEMOGLOBINon 03-24-2022 Hemoglobin (Bld) [Mass/Vol] 13.2 g/dL Critically low 14.0-18.0 [facility] Comment on above: Performed By: #### H GB #### [facility] [address] [place] [address] Dr. Navneet Godwin Progress Note-Physicianon Progress Note-Physician [...] patient tolerated the procedure well. . Normal [facility] Comment on above: Result Comment: Elec tronically Signed By: Sg Thayer Jr, DO\.br\Date and Time Signed: 10/15/19 10:48 EST Coding Summary.on 10-11-2019 Coding Summary. CODING DATE: 019 FINAL [facility] STATUS: Home (Routine DC) PAYOR: [facility] [place] [facility] DESCRIPTION 3548 Level 1 Laparoscopy and Related Services ADMIT DX: REASON FOR VISIT DX: K42.9 Umbilical hernia without obstruction or gangrene FINAL DX: PRINCIPAL: K42.9 Umbilical hernia without obstruction or gangrene SECONDARY: I10 Essential (primary) hypertension J44.9 Chronic obstructive pulmonary disease, unspecified PYMT PROC APC STAT DESCRIPTION DOCTOR NAME DATE 99327 3540 J1 Laparoscopy, surgical, NILL MD, Lee Wagner 10/07/2019 repair, ventral, umbilical, spigelian or epigastric hernia (includes mesh insertion, when performed); reducible 21669 Transversus abdominis Sg Thayer Jr, DO 10/07/2019 plane (TAP) block (abdominal plane block, rectus sheath block) bilateral; by injections (includes imaging guidance, when performed) XP Separate practitioner, a service that is distinct because it was performed by a different practitioner 11124 Anesthesia for hernia Sg Thayer Jr, DO [...] Revised Date Saved: 10/11/2019 11:51 am Normal [facility] Progress Note-Physicianon Progress Note-Physician Patient: PARAS GRIGSBY [...] All Problems COPD exacerbation / SNOMED CT 969470241 / Confirmed BMI 38.0-38.9,adult / SNOMED CT 852188892 / Confirmed Diabetes / SNOMED CT 235420402 / Confirmed new diagnosis on no meds yet Hypertension / SNOMED CT 4118948495 / Confirmed Hypertensive retinopathy / SNOMED CT 24916668 / Confirmed Umbilical hernia / SNOMED CT 1167621320 / Confirmed Resolved: Kidney stone / SNOMED CT 722632190 Histories Past Medical History: Resolved Kidney stone (377584913): Resolved. Family History: Heart disease Father Leukemia Mother Procedure history: Arthroscopy of knee (403547275). Comments: 09/30/2019 10:32 - Deya Guzman RN and left knee 09/18/2019 11:41 - Jose Ramon Caba RIGHT KNEE Tonsillectomy (172666760). ESWL of kidney (18288809). Arthroscopy of shoulder (027638178). Comments: 09/30/2019 10:33 - Deya Guzman RN [...] results Radiology results ECG interpretation Condition Plan [place] [employer]hesi[employer] (ASA) physical status classification: Class III. Anesthetic Preoperative Plan Anesthesia: General. . Anesthetic plan, risks, benefits, and alternatives discussed with the patient and/or family. Risks discussed: nausea, vomiting, headache, sore throat, dental injury, serious complications. Patient verbalized understanding. Communication: face to face with (patient 5 minutes, Pt educated on the importance of smoking cessation.). Normal [facility] Comment on above: Result Comment: Elec tronically Signed By: Jeovany Lester DO, Sg Jim\.br\Date and Time Signed: 10/11/19 08:51 EST Main OR Intraoperative Recor don 10-08-2019 Main OR Intraoperative Record IntraOp Document Type FT Summary Primary Physician: Lee HAMPTON MD Finalized Date/Time: 10/08/19 13:41:00 Pt. Name: PARAS GRIGSBY/Sex: 1965 Male Med Rec #: [id number] Physician: Lee HAMPTON MD Financial #: [id number] Pt. Type: A Room/Bed: [facility] Admit/Disch: 10/07/19 07:08:00 - 10/07/19 15:10:00 [...] prepped wtih chloraprep and ultrasound used. - e.coy rn 1016- robot docked by this RN at patient. - barbi rn 1023- surgeon back to console at this time. - barbi rn 1121- surgeon away from console and rescrubbed. - barbi rn 1122- robot undocked at this time by this RN. - barbi rn 10/08/19 Chart opened to review and send charges Gabriela Israel [facility] Case Attendance FT Entry 1 Entry 2 Entry 3 Case Attendee Jeovany Lester DO, Sg HAMPTON MD, Lee Logan RN, CNOR, Cheyenne Schafefr Role Performed Anesthesiologist of Surgeon - Primary SUPPLY ASSISTANT Record Time In 10/07/19 09:32:00 10/07/19 09:32:00 10/07/19 09:32:00 Time Out 10/07/19 11:43:00 10/07/19 11:43:00 10/07/19 11:43:00 Procedure HERNIA REPAIR, ROBOT HERNIA REPAIR, ROBOT HERNIA REPAIR, ROBOT ASSISTED(.) ASSISTED(.) ASSISTED(.) Comments Last Modified By: Harsh RN, Gricelda House RN, Gricelda Richards RN 10/07/19 11:47:03 10/07/19 11:47:03 10/07/19 11:47:03 Entry 4 Entry 5 Case Attendee Harsh ARIAS, Gricelda Richards CST, Ashely Lynch Role Performed Advertising Sales Representative - Primary Scrub - Primary Time In 10/07/19 09:32:00 10/07/19 09:32:00 Time Out 10/07/19 11:43:00 10/07/19 11:43:00 Procedure HERNIA REPAIR, ROBOT HERNIA REPAIR, ROBOT ASSISTED(.) ASSISTED(.) Comments Last Modified By: Harsh RN, Gricelda House RN, Gricelda Jim 10/07/19 11:47:03 10/07/19 11:47:03 Perioperative Protocols FT [...] CNOR, Cheyenne Schaffer, Gricelda House RN, Churchill STRAIGHTEDGE MAN, Ashely E Time Out Complete 10/07/19 10:03:00 Outcomes [...] and tissue Entry 1 Skin Integrity Intact, [place], Warm, and Skin Abnormality No Dry Outcomes [...] Head Large, Arm Sled Left, Other/See Comments, [place] Wedge Right Side By Gricelda House RN, [...] Met? Yes Yes Yes Last Modified By: Harsh RN, Gricelda House RN, Gricelda Richards RN 10/07/19 10:27:41 10/07/19 10:27:41 10/07/19 10:27:41 Entry 4 Entry 5 Entry 6 Equipment Type MISTRAL FORCED AIR MONITOR CHARGE SURGERY SONOSITE ULTRASOUND WARMING SYSTEM UNIT[F] [F] UNIT[F] Equipment Number M3 Equipment Setting Outcomes Met? Yes Yes Yes Last Modified By: Harsh ARIAS, Gricelda House RN, Gricelda Richards RN 10/07/19 10:27:41 10/07/19 [...] Time 10/07/19 09:35:00 10/07/19 11:26:00 By Doreen RN, CNOR, Gricelda Self RN, Ann, Churchill STRAIGHTEDGE MAN, Maurice FARLEY, Ashely Lynch Outcomes Met? Yes [...] USED CLIPPERS ON ABDOMEN By Doreen ARIAS, CNOR, Cheyenne Schaffer Outcomes Met? Yes Last Modified [...] to transfer/transport General Comments: REPORT GIVEN TO LEASE PURCHASE TRUCK DRIVERRN. Cheryl STRINGER RN Dressing/Packing FT Pre-Care Text: [...] Description MESH STEX ROUND 9CM Lot Number [id number] (3.6 ) [SYM9][F] Rand Cementer FT-TraityOLIVERIO Catalog ?# SYM9 [F] Size 9cm Expiration Date 11/05/23 Unique Device [id number] Human Readable [id number] Identifier (DEE) Barcode [id number] [id number] Machine Readable [id number] Barcode [id number] Usage Data FT Implant Site Abdomen Implant [...] Type TUBE NASOGASTIC SUMP Location mouth 18FR [[id number]][F] Quantity 1 Inserted By Sg Thayer Jr, [...] Present Upon Arrival No Inserted LF 16FR [[id number]][F] Insertion Date/Time 10/07/19 09:58:00 Urine Residual 125 [...] BLANKET MISTRAL AIR Quantity 1 Aid TORSO [[id number]][F] Fluid/[place] Unit Mistral warming system Setting high/43 Body Site Upper anterior torso Last Modified By: Gricelda House RN 10/07/19 10:32:35 Case Comments Finalized By: Angelica Israel CST Document Signatures Signed By: Gricelda House RN 10/07/19 11:47 Angelica Israel CST 10/08/19 13:40 [facility] History and Physicalon 10-07 History and Physical Patient: PARAS GRIGSBY Age: 53 years Sex: Male : 1965 Associated Diagnoses: None Author: Lee HAMPTON MD Subjective no changes to H & P [facility] Comment on above: Result Comment: Elec tronically Signed By: Lee HAMPTON MD\.br\Date and Time Signed: 10/07/19 09:08 EST Inpatient Patient Summaryon 10-07-2019 Inpatient Patient Summary [facility] Clinical Discharge Instructions PERSON INFORMATION Name: PARAS GRIGSBY PHYSICIANS Admitting Physician: Lee HAMPTON MD Attending Physician: Lee HAMPTON MD PCP: Martina LEWIS, Lambert Discharge Diagnosis: Hernia, umbilical Comment: PATIENT EDUCATION INFORMATION Instructions: Post Op Patient Instructions - FT (CUSTOM) Medication Leaflets: Follow up: With: Address: When: Lee HAMPTON [address] [place] [address] [facility] (1) Within 7 to 10 days MEDICATION LIST Fill New Prescriptions: acetaminophen-hydrocodone (acetaminophen-hydrocodone 325 mg-5 mg oral tablet) 1 tab(s) By Mouth every 4 hours as needed for Pain take with food or milk Comment: Normal [facility] Main OR PACU I Recordon Main OR PACU I Record PACU Phase I Document Type FT Summary Primary Physician: Lee HAMPTON MD Finalized Date/Time: 10/07/19 12:51:42 Pt. Name: PARAS GRIGSBY Yessica Boyd./Sex: 1965 Male Med Rec #: [id number] Physician: Lee HAMPTON MD Financial #: [id number] Pt. Type: A Room/Bed: Admit/Disch: 10/07/19 07:08:33 [...] By: Jason Chacon RN 10/07/19 12:51 Normal [facility] Main OR PACU II Recordon Main OR PACU II Record PACU Phase II Document Type FT Summary Primary Physician: Lee HAMPTON MD Finalized Date/Time: 10/07/19 17:37:19 Pt. Name: PARAS GRIGSBY Yessica /Sex: 1965 Male Med Rec #: [id number] Physician: Lee HAMPTON MD Financial #: [id number] Pt. Type: A Room/Bed: [facility] Admit/Disch: 10/07/19 07:08:00 - 10/07/19 15:10:00 [...] By: Karie Fletcher RN 10/07/19 17:37 Normal [facility] Main OR Preoperative Recordo n 10-07-2019 Main OR Preoperative Record PreOp Document Type FT Summary Primary Physician: Lee HAMPTON MD Finalized Date/Time: 10/07/19 10:13:38 Pt. Name: PARAS GRIGSBY/Sex: 1965 Male Med Rec #: [id number] Physician: Lee HAMPTON MD Financial #: [id number] Pt. Type: A Room/Bed: [place] [address] Admit/Disch: 10/07/19 07:08:33 - Institution: Case Times [...] By: Gricelda House RN 10/07/19 10:13 Normal [facility] Operative Reporton 9 Operative Report Date of [...] brought in, exchanged for the #2 needle driver/sales workers and sutures were all cut. The needles [...] fascia was closed with a 0 Vicryl [id number] suture. All port sites were infiltrated with [...] to the Recovery Room in good condition. Alex Roe Dictated: 10/07/2019 #[id number] Typed: 10/07/2019 #[id number] cc: Alex Hdz M.D. [facility] Comment on above: Result Comment: Elec tronically Signed By: Lee HAMPTON MDbr\Date and Time Signed: 10/07/19 13:50 EST Patient Education - Texton 1 12-08-2018 Patient Education - Text Normal [facility] UA With Cult Reflexon 2018 Bilirubin Ql (U) Negative Normal Negative [facility] Comment on above: Performed By: #### 2 [id number], [id number], [id number], [id number], [id number], [id number] #### [facility] [address] [place] [address] Clarity (U) CLEAR Normal Clear [facility] Comment on above: Performed By: #### 2 [id number], [id number], [id number], [id number], [id number], [id number] #### [facility] [address] [place] [address] Color (U) YELLOW Normal Yellow [facility] Comment on above: Performed By: #### 2 369944, 8143378, 8417409, 30013489, 4899721, 9537612 #### [facility] [address] [place] [address] Epithelial cells.squamous LM.HPF (Urine sed) [#/Area] 0-2 Normal 0-2 [facility] Comment on above: Performed By: #### 2 452292, 4696651, 0807534, 13821964, 9919019, 9146579 #### [facility] [address] [place] [address] Glucose Test strip (U) [Mass/Vol] Negative Normal Negative [facility] Comment on above: Performed By: #### 2 602214, 1007389, 5502611, 47069447, 5535397, 4243533 #### [facility] [address] [place] [address] Hemoglobin Ql (U) Negative Normal Negative [facility] Comment on above: Performed By: #### 2 280299, 1458863, 8484327, 28985037, 5900072, 0594699 #### [facility] [address] [place] [address] Ketones (U) [Mass/Vol] Negative Normal Negative [facility] Comment on above: Performed By: #### 2 825071, 8259273, 0934709, 03035175, 7385900, 1321724 #### [facility] [address] [place] [address] [place].plasma/Lith ium.RBC (Bld) [Mass ratio] 0-3 Normal 0-3 [facility] Comment on above: Performed By: #### 2 708345, 3263388, 7360981, 83406826, 8400359, 4198713 #### [facility] [address] [place] [address] Nitrite Ql (U) Negative Normal Negative [facility] Comment on above: Performed By: #### 2 277440, 5484520, 6192304, 20727871, 5870002, 1645235 #### [facility] [address] [place] [address] pH (U) 5.5 [pH] 5.0-9.0 [facility] Comment on above: Performed By: #### 2 976675, 1228668, 5142371, 30167496, 6335852, 5648429 #### [facility] [address] [place] [address] Protein (U) [Mass/Vol] Negative Normal Negative [facility] Comment on above: Performed By: #### 2 166608, 3768660, 0206334, 81212774, 9508828, 5809606 #### [facility] [address] [place] [address] Specific gravity (U) [Rel density] >=1.030 1.005-1.030 [facility] Comment on above: Performed By: #### 2 384309, 2939604, 1098621, 72094036, 6067897, 3843930 #### [facility] [address] [place] [address] UA Spec Desc Villegas Normal [facility] Comment on above: Performed By: #### 2 969274, 9821494, 2004990, 21874562, 2671451, 3860010 #### [facility] [address] [place] [address] Urobilinogen Qn (U) 0.2 {Nayeli'U}/dL Normal 0.0-1.0 [facility] Comment on above: Performed By: #### 2 266794, 6065857, 3772219, 47938024, 7482039, 7041610 #### [facility] [address] [place] [address] WBC Auto Ql (U) Negative Normal Negative [facility] Comment on above: Performed By: #### 2 398535, 3803283, 1926805, 96518973, 6454472, 1799352 #### [facility] [address] [place] [address] WBC LM.HPF (Urine sed) [#/Area] 0-5 Normal 0-5 [facility] Comment on above: Performed By: #### 2 442706, 4598079, 2975008, 40536756, 1593358, 3616739 #### [facility] [address] [place] [address] Coding Summary.on 10-01-2019 Coding Summary. CODING DATE: 019 FINAL [facility] STATUS: Home (Routine DC) PAYOR: [facility] [place] [employer] DESCRIPTION 5521 Level 1 Imaging without [...] CphT Date Saved: 10/01/2019 06:34 am Normal [facility] XR Chest 2 Viewson 9 XR Chest [...] MD Transcribed by: ANKITA Technologist: RH Normal [facility] BUNon 09-30-2019 Urea nitrogen [Mass/Vol] 15 mg/dL Normal 5-21 [facility] Comment on above: Performed By: #### 2 315283, 2321516, 1096692, 13362537, 1742030, 3667170 #### [facility] [address] [place] [address] CBC w/Indiceson 09-30-2019 Erythrocyte distribution width (RBC) [Ratio] 13.2 % Normal 10.9-14.2 [facility] Comment on above: Performed By: #### 2 709129, 6230664, 7258055, 59006809, 2771812, 5152776 #### [facility] [address] [place] [address] Hematocrit (Bld) [Volume fraction] 42.9 % Normal 37.7-49.0 [facility] Comment on above: Performed By: #### 2 084656, 9064792, 3644277, 43376813, 8964669, 5416112 #### [facility] [address] [place] [address] Hemoglobin (Bld) [Mass/Vol] 14.7 g/dL Normal 13.5-17.5 [facility] Comment on above: Performed By: #### 2 876655, 5656034, 8574348, 57636091, 5343908, 3056832 #### [facility] [address] [place] [address] MCH (RBC) [Entitic mass] 31.4 pg Normal 27.0-34.0 [facility] Comment on above: Performed By: #### 2 195491, 3209162, 2894469, 45409045, 1769674, 1671354 #### [facility] [address] [place] [address] MCHC (RBC) [Mass/Vol] 34.2 g/dL Normal 31.4-36.0 [facility] Comment on above: Performed By: #### 2 831494, 0654874, 0097766, 30430067, 4593806, 6590619 #### [facility] [address] [place] [address] MCV (RBC) [Entitic vol] 91.9 fL Normal 80.0-100.0 [facility] Comment on above: Performed By: #### 2 189106, 3290820, 9030957, 20799841, 4614287, 8359131 #### [facility] [address] [place] [address] Platelet mean volume (Bld) [Entitic vol] 9.0 fL Normal 6.4-10.8 [facility] Comment on above: Performed By: #### 2 381647, 3153870, 8734401, 01974499, 8826903, 5793691 #### [facility] [address] [place] [address] Platelets (Bld) [#/Vol] 230.0 E9/L Normal 150.0-500.0 [facility] Comment on above: Performed By: #### 2 434430, 9033495, 9579801, 82626074, 5889925, 1553172 #### [facility] [address] [place] [address] RBC (Bld) [#/Vol] 4.7 E12/L Normal 4.3-5.9 [facility] Comment on above: Performed By: #### 2 294583, 8463345, 6904803, 45139671, 7174125, 5946979 #### [facility] [address] [place] [address] WBC corrected for nucl RBC Auto (Bld) [#/Vol] 5.7 E9/L Normal 4.0-11.0 [facility] Comment on above: Performed By: #### 2 562190, 9785862, 0619440, 22290127, 9763023, 1689209 #### [facility] [address] [place] [address] Creatinineon 09-30-2019 Creatinine [Mass/Vol] 0.8 mg/dL Normal 0.5-1.3 [facility] Comment on above: Performed By: #### 2 525964, 0062827, 8908537, 57512542, 9953820, 0938205 #### [facility] [address] [place] [address] Glucoseon 09-30-2019 Glucose [Mass/Vol] 91 mg/dL Normal 55-199 [facility] Comment on above: Performed By: #### 2 537687, 6442737, 0092754, 08219544, 7796810, 4397810 #### [facility] [address] [place] [address] Lyteson 09-30-2019 Anion gap [Moles/Vol] 13 mmol/L Normal 6-16 [facility] Comment on above: Performed By: #### 2 064617, 7940444, 2011208, 40692825, 1564247, 2894280 #### [facility] [address] [place] [address] Chloride [Moles/Vol] 109 mmol/L Normal 101-111 [facility] Comment on above: Performed By: #### 2 570766, 1118586, 4188941, 02634880, 3480100, 8424743 #### [facility] [address] [place] [address] CO2 [Moles/Vol] 22 mmol/L Normal 21-31 [facility] Comment on above: Performed By: #### 2 936873, 6284768, 3574948, 21087931, 5391372, 5962305 #### [facility] [address] [place] [address] Potassium [Moles/Vol] 4.0 mmol/L Normal 3.5-5.3 [facility] Comment on above: Performed By: #### 2 266356, 4189980, 1507372, 68790479, 0843833, 2191382 #### [facility] [address] [place] [address] Sodium [Moles/Vol] 140 mmol/L Normal 135-145 [facility] Comment on above: Performed By: #### 2 827942, 5086091, 1160816, 47452994, 9020220, 6740329 #### [facility] [address] [place] [address] eGFRon 09-30-2019 GFR/1.73 sq M predicted among blacks MDRD (S/P/Bld) [Vol rate/Area] mL/min/{1.73_m2} Normal >=59 [facility] Comment on above: Order Comment: Order added by Discern Expert. Result Comment: eGFR is race adjusted. AA=. Performed By: #### 2 823860, 5101914, 3556358, 80773197, 3524045, 3924953 #### [facility] [address] [place] [address] GFR/1.73 sq M predicted among non-blacks MDRD (S/P/Bld) [Vol rate/Area] mL/min/{1.73_m2} Normal >=59 [facility] Comment on above: Order Comment: Order added by Discern Expert. Result Comment: [employer] amy kidney disease could be indicated at eGFR's of less than 60 mL/min/1.73m2. Kidney failure is indicated at less than 15 mL/min/1.73m2. Performed By: #### 2 155165, 6196512, 2255268, 36392678, 8774614, 3337719 #### [facility] [address] [place] [address] Vital Signs Date Time Vital Sign Value Performing Clinician Facility 02-23-2023 16:25-0400 Body height 170.18 cm Yasmine Joaquin Other [facility] 02-23-2023 16:25-0400 Body mass index (BMI) [Ratio] 40.72 kg/m2 Yasmine Joaquin Other [facility] 02-23-2023 16:25-0400 Body temperature 98.8 [degF] Yasmine Joaquin Other [facility] Other 02-23-2023 16:25-0400 Body weight 117.94 kg Yasmine Joaquin Other [facility] Other 02-23-2023 16:25-0400 Diastolic blood pressure 70 mm[Hg] Yasmine Joaquin Other [facility] Other 02-23-2023 16:25-0400 Respiratory rate 18 /min Yasmine Jemal Other [facility] Other 02-23-2023 16:25-0400 SaO2% (BldA) [Mass fraction] 97 % Yasmine Jemal Other [facility] Other 02-23-2023 16:25-0400 Systolic blood pressure 131 mm[Hg] Yasmine Joaquin Other [facility] Other 02-17-2023 10:10-0400 Body height 170.18 cm Emma Guerrero Other [facility] Other 02-17-2023 10:10-0400 Body mass index (BMI) [Ratio] 40.72 kg/m2 Emma Yolanda Other [facility] Other 02-17-2023 10:10-0400 Body temperature 97.7 [degF] Emma Guerrero Other [facility] Other 02-17-2023 10:10-0400 Body weight 117.94 kg Emma Guerrero Other [facility] Other 02-17-2023 10:10-0400 Respiratory rate 18 /min Emma Guerrero Other [facility] Other 02-17-2023 10:10-0400 SaO2% (BldA) [Mass fraction] 94 % Emma Guerrero Other [facility] Other 02-15-2022 18:45-0400 Body height 170.18 cm Dimple Arguetaault Other [facility] Other 02-15-2022 18:45-0400 Body mass index (BMI) [Ratio] 39.46 kg/m2 Dimple Arguetaault Other [facility] Other 02-15-2022 18:45-0400 Body temperature 98.2 [degF] Dimple Arguetaault Other [facility] Other 02-15-2022 18:45-0400 Body weight 114.31 kg Dimple Srini Other [facility] Other 02-15-2022 18:45-0400 Diastolic blood pressure 93 mm[Hg] Dimple Srini Other [facility] Other 02-15-2022 18:45-0400 Respiratory rate 18 /min Dimple Srini Other [facility] Other 02-15-2022 18:45-0400 SaO2% (BldA) [Mass fraction] 96 % Dimple Milligan Other [facility] Other 02-15-2022 18:45-0400 Systolic blood pressure 158 mm[Hg] Dimple Milligan Other [facility] Other Encounters Encounter Date Encounter Type Care Provider Facility Start: 04-30-2024 End: 05-01-2024 ambulatory [facility] Start: 03-28-2024 End: 03-28-2024 ambulatory DEBORA E RAMBASEK Not Available Start: 02-21-2024 End: 02-21-2024 ambulatory [facility] Start: 02-14-2024 End: 02-14-2024 ambulatory ANDRE PRESCOTT Not Available Start: 11-27-2023 End: 11-27-2023 ambulatory [facility] Start: 11-23-2023 End: 11-23-2023 ambulatory DEBORA E RAMBASEK Not Available Start: 10-09-2023 End: 10-10-2023 ambulatory DEBORA E RAMBASEK Not Available Start: 09-27-2023 End: 09-27-2023 ambulatory DEBORA E RAMBASEK Not Available Start: 05-29-2023 End: [facility]29[facility]: 03-15-2023 End: 03-16-2023 ambulatory MARYURI HADDAD Facility:[facility] Start: 02-25-2023 End: 02-25-2023 ambulatory ANABELLE AGGARWAL . Facility:[facility] Start: 02-23-2023 End: 02-23-2023 ambulatory Yasmine Joaquin Other [facility] Start: 02-23-2023 Office outpatient vi sit 15 minutes Yasmine Joaquin [facility] Start: 02-17-2023 End: 02-17-2023 ambulatory Emma Guerrero Other [facility] Other Start: 02-17-2023 Office outpatient vi sit 15 minutes Emma Guerrero [facility] Start: 01-28-2023 Encounter for genera l adult medical examination without abnormal findings DR LAMBERT JOSE . [facility] Start: 01-21-2023 End: 01-22-[address] [...] 02-15-2022 End: 02-15-2022 ambulatory Dimple Milligan Other [facility] Start: 02-15-2022 Office outpatient vi sit 15 minutes Dimple Milligan [facility] Procedures Date Procedure Procedure Detail Performing Clinician Start: 01-21-2023 PSA screening MARYURI CHAMPION [facility] Comment on above: Performed By: #### P [facility] #### [facility] [address] [place] [address] Dr. Navneet Godwin Payers Date Payer Category Payer Unknown [id number] 2.16.84 [id number] 1965 Unknown [id number] 2.16.84 0.1.192919.3.579.2.593 1963 Unknown [id number] 2.16.84 0.1.641435.3.579.2.593 1963 Unknown [id number] 2.16.84 0.1.655881.3.579.2.593 1963 Unknown [id number] 2.16.84 0.1.659428.3.579.2.593 1963 Unknown [id number] 2.16.84 0.1.439251.3.579.2.593 1963 Unknown [id number] 2.16.84 0.1.546594.3.579.2.593 1963 Unknown [id number] 2.16.84 0.1.697511.3.579.2.593 1963 Unknown [id number] 2.16.84 0.1.809641.3.579.2.593 1963 Unknown [id number] 2.16.84 0.1.072399.3.579.2.593 1963 Unknown [id number] 2.16.84 0.1.814668.3.579.2.593 1963 Unknown [id number] 2.16.84 0.1.846305.3.579.2.593 1963 Unknown [id number] 2.16.84 0.1.946548.3.579.2.593 1963 Unknown [id number] 2.16.84 0.1.916028.3.579.2.1259 1963 Unknown [id number] 2.16.84 0.1.939091.3.579.2.1259 1963 Unknown [id number] 2.16.84 0.1.764267.3.579.2.1259 1963 Unknown [id number] 2.16.840 .1.952020.3.579.2.9 1963 Unknown [id number] 2.16.840 .1.389765.3.579.2.1259 1959 Unknown [id number] 2. 16.840.1.149948.19 Social History Date Type Detail Facility Sex Assigned At [facility] Other Clinical Notes 02-15-2022 to 04-30-2024 Note Date & Type Note Facility 04-30-2024 Note Cardiovascular Medic [facility] SUBJECTIVE Chief Complaint Patient presents with Shortness of Breath Coronary Artery Disease Paras Grigsby is a 58 y.o. male here for follow-up. HPI PMHx: hypertension, CAD s/p PCI Lcx 2021, and hyperlipidemia He is having continued SOB. He notes that his dyspnea did improve after his PCI in 2021, but it didn't further improve beyond this and has been frustrating for him as he gets SOB with minimal exertion. This past weekend he had some chest tightness while washing his RV. Chest pain was generalized. Worsened with coughing. His PCP has stopped chlorthalidone due to impaired renal function. He had a stress test 04/16/24 - reviewed by Dr. Serna, no further cardiac interventions needed at this time . BP at home running 140/70 Denies orthopnea, PND, LE edema, palpations, syncope. Patient Active Problem List Diagnosis Chest pain CAD in [place] artery Essential hypertension COPD (chronic obstructive pulmonary disease) ([facility]) S/P drug eluting coronary stent placement Hyperplastic polyp of intestine Dyspnea Shortness of breath Severe persistent asthma with acute exacerbation Past Medical History: Diagnosis Date COPD (chronic obstructive pulmonary disease) ([facility]) Coronary artery disease Hyperlipidemia Hypertension Sleep apnea Family History Problem Relation Name Age of Onset Heart failure Father Coronary artery disease Father Social History Tobacco Use Smoking status: Former Packs/day: 1.00 Years: 30.00 Additional pack years: 0.00 Total pack years: 30.00 Types: Cigarettes Quit date: 2011 Years since quittin.5 Smokeless tobacco: Former Quit date: 2001 Substance Use Topics Alcohol use: Not Currently Drug use: Never No Known Allergies ROS Cardiovascular: Positive for chest pain (1 episode a few days ago) and dyspnea on exertion. Musculoskeletal: Positive for arthritis, back pain, joint pain and myalgias. Neurological: Positive for light-headedness. All other systems reviewed and are negative. OBJECTIVE Visit Vitals BP 146/74 (BP Location: Right arm, Patient Position: Sitting) Pulse 56 Ht 1.702 m (5' 7 ) Wt 119 kg (262 lb) SpO2 97% BMI 41.04 kg/m??? Smoking Status Former BSA 2.37 m??? Medications: Current Outpatient Medications: aspirin 81 mg chewable [...] by mouth at bedtime., Disp: , Rfl: dupilumab (Dupixent Pen) 300 mg/2 mL pen injector, , Disp: , Rfl: fenofibrate (Tricor) 145 mg tablet, Take 145 mg by mouth in the morning., Disp: , Rfl: FeroSuL 325 mg (65 mg iron) tablet, Take 1 tablet by mouth in the morning and at bedtime., Disp: , Rfl: furosemide (Lasix) 20 mg tablet, TAKE ONE-HALF (1/2) TABLET DAILY, Disp: 45 tablet, Rfl: 3 lisinopril 20 mg tablet, Take 1 tablet (20 mg) by mouth in the morning., Disp: 90 tablet, Rfl: 3 Physical Exam Constitutional: Appearance: Normal appearance. He is obese. HENT: Head: Normocephalic and atraumatic. Right Ear: External ear normal. Left Ear: External ear normal. Eyes: Extraocular Movements: Extraocular movements intact. Pupils: Pupils are equal, round, and reactive to light. Neck: Vascular: No carotid bruit. Cardiovascular: Rate and Rhythm: Normal rate and regular rhythm. Pulses: Normal pulses. Heart sounds: Normal heart sounds. Pulmonary: Effort: Pulmonary effort is normal. Breath sounds: Normal breath sounds. Abdominal: General: Bowel sounds are normal. Palpations: Abdomen is soft. Musculoskeletal: General: Normal range of motion. Cervical back: Neck supple. Right lower leg: No edema. Left lower leg: No edema. Skin: General: Skin is warm and dry. Neurological: General: No focal deficit present. Mental Status: He is alert and oriented to person, place, and time. Psychiatric: Mood and Affect: Mood normal. Behavior: Behavior normal. Thought Content: Thought content normal. Judgment: Judgment normal. Labs: Admission on 08/03/2022, Discharged on 08/04/2022 Component Date Value Ref Range Status Ventricular Rate 08/03/2022 53 BPM Final Atrial Rate 08/03/2022 53 BPM Final ND Interval 08/03/2022 164 ms Final QRS DURATION 08/03/2022 100 ms Final QT Interval 08/03/2022 424 ms Final QTC CALCULATION(BAZETT) 08/03/2022 397 ms Final P [place] 08/03/2022 39 degrees Final R-[place] 08/03/2022 -7 degrees Final T Wave [place] 08/03/2022 51 degrees Final Auto WBC 08/03/2022 4.48 4.00 - 10.60 10*3/uL Tigist (more content not included)... [facility] 04-30-2024 Note Patient here per Dr. Jose for abnormal stress test. Says PCP ordered testing for SOB. He does see pulmonology in [place]. He states the only recent chest pain was a few days ago when he was washing a camper. Dr. Jose stopped chlorthalidone after recent lab results. Review of Systems Cardiovascular: Positive for chest pain (1 episode a few days ago) and dyspnea on exertion. Musculoskeletal: Positive for arthritis, back pain, joint pain and myalgias. Neurological: Positive for light-headedness. All other systems reviewed and are negative. [facility] 02-21-2024 Note [facility] Cardiology Clinic Note Chief Complaint: [...] history of COPD (chronic obstructive pulmonary disease) ([facility]), Coronary artery disease, Hyperlipidemia, Hypertension, and Sleep [...] Normal cardiac output/cardi (more content not included)... [facility] 11-27-2023 Note [facility] Cardiology Clinic Note Chief Complaint: [...] history of COPD (chronic obstructive pulmonary disease) ([facility]), Coronary artery disease, Hyperlipidemia, Hypertension, and Sleep [...] plus or min (more content not included)... [facility] 05-29-2023 Note Patient here for 6 m o follow up CAD, hypertension, and dyslipidemia. He had routine labs in January 2023. Denies chest pain. Says his VILLAVICENCIO remains unchanged. Review of Systems Cardiovascular: Positive for dyspnea on exertion. Respiratory: Positive for cough and wheezing. Musculoskeletal: Positive for arthritis, back pain, joint pain and myalgias. All other systems reviewed and are negative. [facility] 05-29-2023 Note Cardiology Clinic No te Subjective Paras Grigsby is a 57 y.o. year old male patient with coronary artery disease status post left circumflex PCI in 2021 and hypertension seen in follow-up. seen for No chief complaint on file. Patient Active Problem List Diagnosis Chest pain CAD in [place] artery Essential hypertension COPD (chronic obstructive pulmonary disease) ([facility]) S/P drug eluting coronary stent placement Hyperplastic [...] 5. Follow-up with Dr. Serna in the [facility] in the next 2 to 4 [...] 04/18/2022 LV syst (more content not included)... [facility] 02-23-2023 Evaluation note Encounter Date Diagnosis Assessment Notes Feb, Urticaria (ICD-10 - L50.9) Discussed diagnosis with patient. We will send in Rx of prednisone taper to use as directed. Continue [id number] Benadryl/Zyrtec or Claritin. Advised patient to avoid hot showers/baths encouraged use of cool compresses. Patient needs to follow-up with PCP if this rash does not improve with treatment. Immediate evaluation in ER for signs and symptoms as discussed. Patient verbalizes understanding and is agreeable to treatment plan. [facility] Other 04-14-2023 Evaluation note* Encounter Date Diagnosis Assessment Notes Treatment Notes Treatment Clinical Notes Feb, Urticaria (ICD-10 - L50.9) Hives [...] concerns Feb, Acute cough (ICD-10 - R05.1) [facility] Other 04-12-2022 Evaluation note* Encounter Date Diagnosis Assessment Notes Treatment Notes Treatment Clinical Notes Feb, Infected tooth (ICD-10 - K04.7) Take medications as directed.Highly encourage patient to contact dentist TIARA for further treatment of infection. Do not take OTC medications like ibuprofen with prescriptions [facility] Other History general Narrative - Reported* Type Description Date Medical History Benign essential HTN Surgical History knee surgery Surgical History shoulder surgery Surgical History tonsillectomy and adenoidectomy Surgical History wisdom teeth Surgical History vasectomy Hospitalization History see above [facility] Other History general Narrative - Reported* Type Description Date Medical History Benign essential HTN Medical History High cholesterol Surgical History knee surgery Surgical History shoulder surgery Surgical History tonsillectomy and adenoidectomy Surgical History wisdom teeth Surgical History vasectomy Surgical History stent 2021 Hospitalization History see above [facility] Other Summary Purpose Family History No Family [...] All Problems COPD exacerbation / SNOMED CT 492310768 / Confirmed BMI 38.0-38.9,adult / SNOMED CT 453582577 / Confirmed Diabetes / SNOMED CT 936143762 / Confirmed new diagnosis on no meds yet Hypertension / SNOMED CT 6668310781 / Confirmed Hypertensive retinopathy / SNOMED CT 86843231 / Confirmed Umbilical hernia / SNOMED CT 4607803897 / Confirmed Resolved: Kidney stone / SNOMED CT 306202968 Physical Examination Vital Signs 10/07/2019 14:40 EST [...] section and content) DATE CREATED AUTHOR 02/03/2020 [facility] DATE CREATED AUTHOR AUTHOR'S ORGANIZ ATION 03/19/2023 [facility] for Rehabilitation DATE CREATED AUTHOR AUTHOR'S ORGANIZ ATION 03/31/2024 [facility] EPIC DATE CREATED AUTHOR AUTHOR'S ORGANIZ ATION 05/09/2024 [facility] REASON FOR VISIT (unrecogniz ed section [...] BE BASED ON THE PRIMARY CLINICAL RECORDS. [employer] [facility]. provides no warranty or guarantee of the accuracy or completeness of information in this document.
== END 2024-05-27 08:19 | disposition home or self-care (01) ==
LOC: CARD 08:18
PROVIDERS: PCP Family Medicine; Visit Provider Nurse Practitioner Family
DX: R06.09 Other forms of dyspnea (principal); I25.810 Atherosclerosis of coronary artery bypass graft(s) without angina pectoris
CPT/HCPCS: 93306

== ENCOUNTER 2024-06-11 15:40 | Outpatient (OUT) | payer OTHER, SELFPAY ==
[2024-06-11 16:24] LABS: Anion Gap 9.5; BUN Creatinine Ratio 19.8; Calcium 9.1 mg/dL (8.5-10.1); Carbon Dioxide 26.3 mmol/L (21.0-32.0); Chloride 106 mmol/L (98-107); Estimated GFR (African America >60 (>=60); Estimated GFR (Non-African Ame 56 (>=60); Glucose 86 mg/dL (74-106); Potassium 3.8 mmol/L (3.5-5.1); Sodium 138 mmol/L (136-145)
== END 2024-06-11 15:41 | disposition home or self-care (01) ==
LOC: LAB 15:43
PROVIDERS: PCP Family Medicine; Visit Provider Nurse Practitioner Family
DX: R60.9 Edema, unspecified (principal)
CPT/HCPCS: 36415; 80048

== ENCOUNTER 2024-07-09 15:14 | Outpatient (OUT) | payer OTHER, SELFPAY ==
--- NOTE | 2024-07-09 15:19 | XR_ITS ---
[facility] [place] [id number] Patient Name: PARAS GRIGSBY MRN: [id number] date: 1965 Sex: M Assigned Patient Location: [facility] Current Patient Location: Accession/Order Number: [id number] Exam Date: 07/09/2024 15:25 Report Date: 07/10/2024 12:55 At the request of: INES WALLER Procedure: XR cervical spine 2-3V EXAMINATION: XR cervical spine 2-3V HISTORY: Cervicalgia M54.2 ; chronic neck pain COMPARISON: No relevant comparison available. FINDINGS: BONES: No significant spondylosis, scoliosis, fracture, or visible bony lesion. DISC SPACES: C6-7 marked narrowing. PARASPINOUS: Negative. No paraspinous abnormality is seen. OTHER: Negative. XR/XR cervical spine 2-3V IMPRESSION: 1. C6-7 moderate disc space narrowing likely contributing to patient's symptoms. Electronically authenticated by: SERA AMAYA Date: 07/10/2024 12:55
--- OUTSIDE RECORDS SUMMARY | 2024-07-09 15:36 | XMS_ITS | CCD ---
Author Organization [facility] Care Team Providers Care Chemical Equipment Repairer Name Role Phone Dimple Milligan Unavailable YolandaDyanEmma [...] Unavailable HOY ., DR VERDIN Admitting Unavailable ERICK, DR PADMINI Ravi Consulting Unavailable HOY ., [...] HOY ., DR VERDIN Primary Care Unavailable [facility] Consulting Unavailable HOY ., DR VERDIN Primary Care Unavailable [facility] CHACON Attending Unavailable [place], DR CHACON [...] MARTINA ., DR VERDIN Primary Care Unavailable [facility] CHACON Attending Unavailable [place], DR CHACON Admitting Unavailable RAMBASEKDEBORA Attending Unavailable RAMBASEK, DEBORA Lynch Attending Unavailable RAMBASEKDEBORA Referring Unavailable ANDRE PRESCOTT Attending Unavailable DEBORA ROBLES Attending Unavailable CECI LEE Attending Unavailable [facility]ES Attending Unavailable [facility] INES Attending Unavailable ISAAC TANG Attending Unavailable [...] disease (7 sources) Atherosclerotic heart disease of [place] coronary artery without angina pectoris; Translations: [Coronary [...] 03-15-2023 Episodic Other aftercare (1 source) 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; Translations: [OTH JAIL CURRENT DRUG THERAPY] Onset: 03-18-2023 Episodic Other aftercare (1 source) [facility] (current) use of aspirin; Translations: [JAIL CURRENT USE OF ASPIRIN] Onset: 02-27-2023 Episodic [...] Range Facility Office Visiton 04-30-2024 Follow-up visit [id number] Jada Grigsby 1965 M Date Provider Department Center 04/30/2024 ISAAC TELLEZ Family History Problem Relation Age of Onset Heart failure Father Coronary artery disease Father Family Status - Relation Status Age at Father Level of Service:12829 UT OFFICE/OUTPATIENT ESTABLISHED MOD MDM 30 MIN Reason for Visit and Comments: Shortness of Breath [415638] Coronary Artery Disease [187] [facility] 36on 04-19-2024 [address] tried to call [address]. Jose's office back on this. No VM. Can you please follow up on this and try to call them Monday? Thanks. [facility] 36 Good morning. I was off yesterday, but Atul left me a message about this patient. She said Dr. Jose's office called and asked what the plan was with this patient's recent stress test. When I got in today, I realized that you didn't order it. Dr. Jose did. I scanned it into [facility] for you to review. Thanks. [facility] 36on 02-22-2024 36 Regarding lab result s from 02/21/2024: MD Karon Crain MA Great. Please let the patient know his serum creatinine is back to normal. No changes in medications. Thanks LM on VM. [facility] Office Visiton 02-21-2024 Follow-up visit [id number] Jada Grigsby 1965 M Date Provider Department Center 02/21/2024 INES MACEDO Family History Problem Relation Age of Onset Heart failure Father Coronary artery disease Father Family Status - Relation Status Age at Father Level of Service:72267 UT OFFICE/OUTPATIENT ESTABLISHED MOD MDM 30 MIN [facility] Office Visiton 11-27-2023 Follow-up visit [id number] TanikaantonioJada 1965 M Date Provider Department Center 11/27/2023 Delaney-INES SERNA CARD Nathalie [facility] Family History Problem Relation Age of Onset Heart failure Father Coronary artery disease Father Family Status - Relation Status Age at Father Level of Service:56879 UT OFFICE/OUTPATIENT ESTABLISHED MOD MDM 30 MIN [facility] Orders Onlyon 06-21-2023 Orders Only [id number] Jada Grigsby 1965 M Date Provider Department Center 06/21/2023 ATUL DIETZ CARD Nathalie [facility] Family History Problem Relation Age of Onset Heart failure Father Coronary artery disease Father Family Status - Relation Status Age at Father [facility] 36on 06-19-2023 36 Please advise BP are higher than recommended targets. He can double on his Lisinopril and get BMP in 1 week after changes. Please send script and lab order. Thanks. [facility] Office Visiton 05-29-2023 Follow-up visit [id number] Jada Grigsby 1965 M Date Provider Department Center 05/29/2023 [id number] RAMACHANDRAN GENNARO Zelaya [facility] Family History Problem Relation Age of Onset Heart failure Father Coronary artery disease Father Family Status - Relation Status Age at Father Level of Service:26950 UT OFFICE/OUTPATIENT ESTABLISHED LOW MDM 20-29 MIN [facility] THEOPHYLLINEon 03-15-2023 THEOPHYLLINE 5.9 ug/mL Critically low 10.0-20.0 [facility] Comment on above: Performed By: #### T ALAN #### [facility] [address] [address] [address] Navneet Godwin CHUCKIE by IFAon 01-23-2023 Antinuclear Antibodies, IFA Positive Abnormal [facility] Comment on above: Result Comment: Nega tive <1:80 Borderline 1:80 Positive >1:80 Performed By: #### C BC #### [facility] [address] [address] [address] Navneet Godwin Centriole Pattern Normal [facility] Comment on above: Performed By: #### C BC #### [facility] [address] [address] [address] Navneet Godwin Centromere Pattern Normal [facility] Comment on above: Performed By: #### C BC #### [facility] [address] [address] [address] Navneet Godwin Homogeneous Pattern 1:80 Normal [facility] Comment on above: Result Comment: ICAP nomenclature: AC-1 Performed By: #### C BC #### [facility] [address] [address] [address] Navneet Godwin Midbody Pattern Normal [facility] Comment on above: Performed By: #### C BC #### [facility] [address] [address] [address] Navneet Godwin Note: Comment Normal [facility] Comment on above: Result Comment: For [...] titers Nucleosomes, Histones Drug-induced SLE Speckled Sm, PER DIEM PHYSICAL THERAPIST, SCL-70, SLE,MCTD,PSS (diffuse form), SS-A/SS-B Sjogrens Nucleolar SCL-70, PM-1/SCL High titers Scleroderma, PM/DM Centromere Centromere PSS (limited form) w/Crest syndrome variable Nuclear Dot [id number] Primary Biliary Cirrhosis Nuclear GP210, Primary Biliary Cirrhosis Membrane ofelia A,B,C Performed By: #### C BC #### [facility] [address] [place] [address] Dr. Navneet Godwin Nuclear Dot Pattern Normal [facility] Comment on above: Performed By: #### C BC #### [facility] [address] [address] [address] Navneet Godwin Nuclear Membrane Pattern Normal [facility] Comment on above: Performed By: #### C BC #### [facility] [address] [address] [address] Navneet Godwin Nucleolar Pattern Normal [facility] Comment on above: Performed By: #### C BC #### [facility] [address] [place] [address] Dr. Navneet Godwin PCNA Pattern Normal [facility] Comment on above: Performed By: #### C BC #### [facility] [address] [address] [address] Navneet Godwin Speckled Pattern Normal [facility] Comment on above: Performed By: #### C BC #### [facility] [address] [address] [address] Navneet Godwin Spindle Apparatus Pattern Normal [facility] Comment on above: Performed By: #### C BC #### [facility] [address] [place] [address] Dr. Navneet Godwin INSULINon 01-23-2023 Insulin 50.9 uIU/mL Critically high 2.6-24.9 [facility] Comment on above: Performed By: #### I NSULIN #### [facility] [address] [place] [address] Dr. Navneet Godwin ANTISTREPTOLYSIN O AB (ASO)o n 01-22-2023 Antistreptolysin O Ab 55.6 IU/mL Normal 0.0-200.0 [facility] Comment on above: Performed By: #### H GB #### [facility] [address] [place] [address] Dr. Navneet Godwin RHEUMATOID FACTORon 01-23-20 23 RA Latex Turbid. <10.0 Normal <14.0 [facility] Comment on above: Performed By: #### H GB #### [facility] [address] [place] [address] Dr. Navneet Godwin CBC AUTO DIFFon 01-21-2023 BASO # 0.0 103/ul Normal 0.0-0.1 [facility] Comment on above: Performed By: #### C BC #### [facility] [address] [place] [address] Dr. Navneet Godwin Basophils/100 WBC (Bld) 0.8 % Normal 0.2-2.0 [facility] Comment on above: Performed By: #### C BC #### [facility] [address] [place] [address] Dr. Navneet Godwin EO # 0.1 103/ul Normal 0.0-0.7 [facility] Comment on above: Performed By: #### C BC #### [facility] [address] [place] [address] Dr. Navneet Godwin Eosinophils/100 WBC (Bld) 2.1 % Normal 0.9-7.0 [facility] Comment on above: Performed By: #### C BC #### [facility] [address] [place] [address] Dr. Navneet Godwin Erythrocyte distribution width (RBC) [Ratio] 13.7 % Normal 11.0-15.0 [facility] Comment on above: Performed By: #### C BC #### [facility] [address] [place] [address] Dr. Navneet Godwin Hematocrit (Bld) [Volume fraction] 37.6 % Critically low 42.0-54.0 [facility] Comment on above: Performed By: #### C BC #### [facility] [address] [place] [address] Dr. Navneet Godwin Hemoglobin (Bld) [Mass/Vol] 12.7 g/dL Critically low 14.0-18.0 [facility] Comment on above: Performed By: #### C BC #### [facility] [address] [place] [address] Dr. Navneet Godwin IG # 0.01 10e3/ul Normal 0.00-0.03 [facility] Comment on above: Performed By: #### C BC #### [facility] [address] [place] [address] Dr. Navneet Godwin IG % 0.2 % Normal 0.0-0.5 [facility] Comment on above: Performed By: #### C BC #### [facility] [address] [place] [address] Dr. Navneet Godwin LYMPH # 1.8 103/ul Normal 1.2-3.8 [facility] Comment on above: Performed By: #### C BC #### [facility] [address] [place] [address] Dr. Navneet Godwin Lymphocytes/100 WBC (Bld) 33.1 % Normal 20.5-60.0 [facility] Comment on above: Performed By: #### C BC #### [facility] [address] [place] [address] Dr. Navneet Godwin MANUAL DIFF REQ NO Normal [facility] Comment on above: Performed By: #### C BC #### [facility] [address] [place] [address] Dr. Navneet Godwin MCH (RBC) [Entitic mass] 29.4 pg Normal 25.9-34.0 [facility] Comment on above: Performed By: #### C BC #### [facility] [address] [place] [address] Dr. Navneet Godwin MCHC (RBC) [Mass/Vol] 33.8 g/dL Normal 29.9-35.2 [facility] Comment on above: Performed By: #### C BC #### [facility] [address] [place] [address] Dr. Navneet Godwin MCV (RBC) [Entitic vol] 87.0 fL Normal 80.0-94.0 [facility] Comment on above: Performed By: #### C BC #### [facility] [address] [place] [address] Dr. Navneet Godwin MONO # 0.4 103/ul Normal 0.3-0.8 [facility] Comment on above: Performed By: #### C BC #### [facility] [address] [place] [address] Dr. Navneet Godwin Monocytes/100 WBC (Bld) 8.1 % Normal 1.7-12.0 [facility] Comment on above: Performed By: #### C BC #### [facility] [address] [place] [address] Dr. Navneet Godwin NEUT # 2.9 103/ul Normal 1.4-6.5 [facility] Comment on above: Performed By: #### C BC #### [facility] [address] [address] [address] Navneet Godwin Neutrophils/100 WBC (Bld) 55.7 % Normal 43.0-75.0 [facility] Comment on above: Performed By: #### C BC #### [facility] [address] [place] [address] Dr. Navneet Godwin Platelet mean volume (Bld) [Entitic vol] 10.6 fL Normal 9.5-13.5 [facility] Comment on above: Performed By: #### C BC #### [facility] [address] [address] [address] Navneet Godwin PLT 236 103/ul Normal 150-450 [facility] Comment on above: Performed By: #### C BC #### [facility] [address] [place] [address] Dr. Navneet Godwin RBC 4.32 106/ul Critically low 4.70-6.10 [facility] Comment on above: Performed By: #### C BC #### [facility] [address] [place] [address] Dr. Navneet Godwin WBC 5.3 103/ul Normal 4.0-11.0 [facility] Comment on above: Performed By: #### C BC #### [facility] [address] [place] [address] Dr. Navneet Godwin CRPon 01-21-2023 CRP [Mass/Vol] mg/L Normal <=1.0 [facility] Comment on above: Performed By: #### H GB #### [facility] [address] [place] [address] Dr. Navneet Godwin FREE THYROXINE INDEX T7on FTI 2.59 Normal 1.30-4.50 [facility] Comment on above: Performed By: #### C BC #### [facility] [address] [place] [address] Dr. Navneet Godwin T3U 32.0 % Critically low 33.0-40.0 [facility] Comment on above: Performed By: #### C BC #### [facility] [address] [address] [address] Navneet Godwin T4 [Mass/Vol] 8.10 ug/dL Normal 4.50-12.10 [facility] Comment on above: Performed By: #### C BC #### [facility] [address] [address] [address] Navneet Godwin GLYCOHEMOGLOBIN A1Con 2022 ADA RECOMMENDATION SEE BELOW Normal [facility] Comment on above: Result Comment: ADA RECOMMENDED LIMIT 4.0 - 6.0 ADA THERAPEUTIC TARGET < 7.0 ACTION SUGGESTED > 7.0 Performed By: #### H GB #### [facility] [address] [place] [address] Dr. Navneet Godwin Glucose [Mass/Vol] 126 mg/dL Normal [facility] Comment on above: Performed By: #### H GB #### [facility] [address] [place] [address] Dr. Navneet Godwin HbA1c (Bld) [Mass fraction] 6.0 % Normal 4.5-6.2 [facility] Comment on above: Performed By: #### H GB #### [facility] [address] [place] [address] Dr. Navneet Godwin LIPID PROFILEon 01-21-2023 CHOL-HDL RATIO NORM SEE BELOW Normal [facility] Comment on above: Result Comment: 3.3 - 4.4 LOW RISK 4.4 - 7.1 AVERAGE RISK 7.1 - 11.0 MODERATE RISK >11.0 HIGH RISK Performed By: #### C BC #### [facility] [address] [place] [address] Dr. Navneet Godwin Cholesterol [Mass/Vol] 96 mg/dL Normal <=200 [facility] Comment on above: Performed By: #### C BC #### [facility] [address] [place] [address] Dr. Navneet Godwin Cholesterol in HDL [Mass/Vol] 45 mg/dL Normal 40-60 [facility] Comment on above: Performed By: #### C BC #### [facility] [address] [place] [address] Dr. Navneet Godwin Cholesterol in LDL [Mass/Vol] 37.2 mg/dL Normal [facility] Comment on above: Performed By: #### C BC #### [facility] [address] [address] [address] Navneet Godwin Cholesterol.total/C holesterol in HDL [Mass ratio] 2.1 {ratio} Normal [facility] Comment on above: Performed By: #### C BC #### [facility] [address] [address] [address] Navneet Godwin HDL NORMAL > or = 60 mg/dl - LO W CARDIOVASCULAR RISK <40 mg/dl - HIGH CARDIOVASCULAR RISK Normal [facility] Comment on above: Performed By: #### C BC #### [facility] [address] [place] [address] Dr. Navneet Godwin LDL CALC NORMAL SEE BELOW Normal [facility] Comment on above: Result Comment: <100 mg/dl OPTIMAL 100 - 129 mg/dl NEAR OR ABOVE OPTIMAL 130 - 159 mg/dl BORDERLINE HIGH 160 - 189 mg/dl HIGH >190 mg/dl VERY HIGH Performed By: #### C BC #### [facility] [address] [address] [address] Navneet Godwin Triglyceride [Mass/Vol] 69 mg/dL Normal <=150 [facility] Comment on above: Performed By: #### C BC #### [facility] [address] [place] [address] Dr. Navneet Godwin VLDL CALC 13.8 mg/dL Normal [facility] Comment on above: Performed By: #### C BC #### [facility] [address] [address] [address] Navneet Godwin OCC BLD IMMUNO SCREENon 01-04 OCCULT BLOOD Negative Normal NEGATIVE [facility] Comment on above: Performed By: #### O BSCRN #### [facility] [address] [place] [address] Dr. Navneet Godwin PROF 14(COMP METB)on 023 Albumin [Mass/Vol] 4.1 g/dL Normal 3.4-5.0 [facility] Comment on above: Performed By: #### C BC #### [facility] [address] [address] [address] Navneet Godwin Albumin/Globulin [Mass ratio] 1.4 {ratio} Normal [facility] Comment on above: Performed By: #### C BC #### [facility] [address] [place] [address] Dr. Navneet Godwin ALP [Catalytic activity/Vol] 40 U/L Critically low 46-116 [facility] Comment on above: Performed By: #### C BC #### [facility] [address] [place] [address] Dr. Navneet Godwin ALT [Catalytic activity/Vol] 33 U/L Normal 16-63 [facility] Comment on above: Performed By: #### C BC #### [facility] [address] [place] [address] Dr. Navneet Godwin Anion gap [Moles/Vol] 14.6 mmol/L Normal [facility] Comment on above: Performed By: #### C BC #### [facility] [address] [place] [address] Dr. Navneet Godwin AST [Catalytic activity/Vol] 33 U/L Normal 15-37 [facility] Comment on above: Performed By: #### C BC #### [facility] [address] [place] [address] Dr. Navneet Godwin Bilirubin [Mass/Vol] 0.4 mg/dL Normal 0.2-1.0 [facility] Comment on above: Performed By: #### C BC #### [facility] [address] [place] [address] Dr. Navneet Godwin Calcium [Mass/Vol] 9.2 mg/dL Normal 8.5-10.1 [facility] Comment on above: Performed By: #### C BC #### [facility] [address] [place] [address] Dr. Navneet Godwin Chloride [Moles/Vol] 109 mmol/L Critically high 98-107 [facility] Comment on above: Performed By: #### C BC #### [facility] [address] [place] [address] Dr. Navneet Godwin CO2 [Moles/Vol] 23.1 mmol/L Normal 21.0-32.0 [facility] Comment on above: Performed By: #### C BC #### [facility] [address] [place] [address] Dr. Navneet Godwin Creatinine [Mass/Vol] 1.12 mg/dL Normal 0.70-1.30 [facility] Comment on above: Performed By: #### C BC #### [facility] [address] [place] [address] Dr. Navneet Godwin EGFR-AF MONTSERR[place]IAN >60 Normal >=60 [facility] Comment on above: Performed By: #### C BC #### [facility] [address] [place] [address] Dr. Navneet Godwin EGFR-NON AF [place] >60 Normal >=60 [facility] Comment on above: Performed By: #### C BC #### [facility] [address] [place] [address] Dr. Navneet Godwin Globulin (S) [Mass/Vol] 2.9 g/dL Normal [facility] Comment on above: Performed By: #### C BC #### [facility] [address] [place] [address] Dr. Navneet Godwin Glucose [Mass/Vol] 109 mg/dL Critically high 74-106 [facility] Comment on above: Performed By: #### C BC #### [facility] [address] [place] [address] Dr. Navneet Godwin Potassium [Moles/Vol] 3.7 mmol/L Normal 3.5-5.1 [facility] Comment on above: Performed By: #### C BC #### [facility] [address] [place] [address] Dr. Navneet Godwin Protein [Mass/Vol] 7.0 g/dL Normal 6.4-8.2 [facility] Comment on above: Performed By: #### C BC #### [facility] [address] [place] [address] Dr. Navneet Godwin Sodium [Moles/Vol] 143 mmol/L Normal 136-145 [facility] Comment on above: Performed By: #### C BC #### [facility] [address] [place] [address] Dr. Navneet Godwin Urea nitrogen [Mass/Vol] 18.0 mg/dL Normal 7.0-18.0 [facility] Comment on above: Performed By: #### C BC #### [facility] [address] [address] [address] Navneet Godwin Urea nitrogen/Creatinine [Mass ratio] 16.1 mg/mg Normal [facility] Comment on above: Performed By: #### C BC #### [facility] [address] [place] [address] Dr. Navneet Godwin TSHon 01-21-2023 TSH 1.912 uIU/mL Normal 0.358-3.740 [facility] Comment on above: Performed By: #### H GB #### [facility] [address] [place] [address] Dr. Navneet Godwin URIC ACID SERUMon 01-21-2023 Urate [Mass/Vol] 6.9 mg/dL Normal 3.5-7.2 [facility] Comment on above: Performed By: #### H GB #### [facility] [address] [place] [address] Dr. Navneet Godwin THEOPHYLLINEon 12-26-2022 THEOPHYLLINE 5.3 ug/mL Critically low 10.0-20.0 [facility] Comment on above: Performed By: #### C BC #### [facility] [address] [place] [address] Dr. Navneet Godwin LIPID PROFILEon 10-01-2022 CHOL-HDL RATIO NORM SEE BELOW Normal [facility] Comment on above: Result Comment: 3.3 - 4.4 LOW RISK 4.4 - 7.1 AVERAGE RISK 7.1 - 11.0 MODERATE RISK >11.0 HIGH RISK Performed By: #### L IPID, CMP #### [facility] [address] [place] [address] Dr. Navneet Godwin Cholesterol [Mass/Vol] 92 mg/dL Normal <=200 [facility] Comment on above: Performed By: #### L IPID, CMP #### [facility] [address] [address] [address] Navneet Godwin Cholesterol in HDL [Mass/Vol] 40 mg/dL Normal 40-60 [facility] Comment on above: Performed By: #### L IPID, CMP #### [facility] [address] [address] [address] Navneet Godwin Cholesterol in LDL [Mass/Vol] 33.2 mg/dL Normal [facility] Comment on above: Performed By: #### L IPID, CMP #### [facility] [address] [address] [address] Navneet Godwin Cholesterol.total/C holesterol in HDL [Mass ratio] 2.3 {ratio} Normal [facility] Comment on above: Performed By: #### L IPID, CMP #### [facility] [address] [place] [address] Dr. Navneet Godwin HDL NORMAL > or = 60 mg/dl - LO W CARDIOVASCULAR RISK <40 mg/dl - HIGH CARDIOVASCULAR RISK Normal [facility] Comment on above: Performed By: #### L IPID, CMP #### [facility] [address] [address] [address] Navneet Godwin LDL CALC NORMAL SEE BELOW Normal [facility] Comment on above: Result Comment: <100 mg/dl OPTIMAL 100 - 129 mg/dl NEAR OR ABOVE OPTIMAL 130 - 159 mg/dl BORDERLINE HIGH 160 - 189 mg/dl HIGH >190 mg/dl VERY HIGH Performed By: #### L IPID, CMP #### [facility] [address] [address] [address] Navneet Godwin Triglyceride [Mass/Vol] 94 mg/dL Normal <=150 [facility] Comment on above: Performed By: #### L IPID, CMP #### [facility] [address] [place] [address] Dr. Navneet Godwin VLDL CALC 18.8 mg/dL Normal [facility] Comment on above: Performed By: #### L IPID, CMP #### [facility] [address] [address] [address] Navneet Godwin PROF 14(COMP METB)on 022 Albumin [Mass/Vol] 3.6 g/dL Normal 3.4-5.0 [facility] Comment on above: Performed By: #### L IPID, CMP #### [facility] [address] [place] [address] Dr. Navneet Godwin Albumin/Globulin [Mass ratio] 1.2 {ratio} Normal [facility] Comment on above: Performed By: #### L IPID, CMP #### [facility] [address] [address] [address] Navneet Godwin ALP [Catalytic activity/Vol] 45 U/L Critically low 46-116 [facility] Comment on above: Performed By: #### L IPID, CMP #### [facility] [address] [place] [address] Dr. Navneet Godwin ALT [Catalytic activity/Vol] 25 U/L Normal 16-63 [facility] Comment on above: Performed By: #### L IPID, CMP #### [facility] [address] [place] [address] Dr. Navneet Godwin Anion gap [Moles/Vol] 13.5 mmol/L Normal [facility] Comment on above: Performed By: #### L IPID, CMP #### [facility] [address] [place] [address] Dr. Navneet Godwin AST [Catalytic activity/Vol] 37 U/L Normal 15-37 [facility] Comment on above: Performed By: #### L IPID, CMP #### [facility] [address] [place] [address] Dr. Navneet Godwin Bilirubin [Mass/Vol] 0.4 mg/dL Normal 0.2-1.0 [facility] Comment on above: Performed By: #### L IPID, CMP #### [facility] [address] [place] [address] Dr. Navneet Godwin Calcium [Mass/Vol] 8.9 mg/dL Normal 8.5-10.1 [facility] Comment on above: Performed By: #### L IPID, CMP #### [facility] [address] [address] [address] Navneet Godwin Chloride [Moles/Vol] 109 mmol/L Critically high 98-107 [facility] Comment on above: Performed By: #### L IPID, CMP #### [facility] [address] [address] [address] Navneet Godwin CO2 [Moles/Vol] 25.3 mmol/L Normal 21.0-32.0 [facility] Comment on above: Performed By: #### L IPID, CMP #### [facility] [address] [address] [address] Navneet Godwin Creatinine [Mass/Vol] 1.07 mg/dL Normal 0.70-1.30 [facility] Comment on above: Performed By: #### L IPID, CMP #### [facility] [address] [place] [address] Dr. Navneet Godwin EGFR-AF MONTSERRATIAN >60 Normal >=60 [facility] Comment on above: Performed By: #### L IPID, CMP #### [facility] [address] [address] [address] Navneet Godwin EGFR-NON AF MONTSERRATIAN >60 Normal >=60 [facility] Comment on above: Performed By: #### L IPID, CMP #### [facility] [address] [place] [address] Dr. Navneet Godwin Globulin (S) [Mass/Vol] 3.1 g/dL Normal [facility] Comment on above: Performed By: #### L IPID, CMP #### [facility] [address] [address] [address] Navneet Godwin Glucose [Mass/Vol] 115 mg/dL Critically high 74-106 [facility] Comment on above: Performed By: #### L IPID, CMP #### [facility] [address] [address] [address] Navneet Godwin Potassium [Moles/Vol] 3.8 mmol/L Normal 3.5-5.1 [facility] Comment on above: Performed By: #### L IPID, CMP #### [facility] [address] [place] [address] Dr. Navneet Godwin Protein [Mass/Vol] 6.7 g/dL Normal 6.4-8.2 [facility] Comment on above: Performed By: #### L IPID, CMP #### [facility] [address] [place] [address] Dr. Navneet Godwin Sodium [Moles/Vol] 144 mmol/L Normal 136-145 [facility] Comment on above: Performed By: #### L IPID, CMP #### [facility] [address] [place] [address] Dr. Navneet Godwin Urea nitrogen [Mass/Vol] 21.0 mg/dL Critically high 7.0-18.0 [facility] Comment on above: Performed By: #### L IPID, CMP #### [facility] [address] [place] [address] Dr. Navneet Godwin Urea nitrogen/Creatinine [Mass ratio] 19.6 mg/mg Normal [facility] Comment on above: Performed By: #### L IPID, CMP #### [facility] [address] [place] [address] Dr. Navneet Godwin ASPERGILLUS AB, QUANTITATIVE DIDon 07-08-2022 Aspergillus flavus Negative Normal Neg:<1:1 [facility] Comment on above: Performed By: #### C BC #### [facility] [address] [place] [address] Dr. Navneet Godwin Aspergillus fumigatus Negative Normal Neg:<1:1 [facility] Comment on above: Performed By: #### C BC #### [facility] [address] [place] [address] Dr. Navneet Godwin Aspergillus niger Negative Normal Neg:<1:1 [facility] Comment on above: Performed By: #### C BC #### [facility] [address] [place] [address] Dr. Navneet Godwin IMMUNOGLOBULIN E, TOTALon Immunoglobulin E, Total 102 IU/mL Normal 6-495 [facility] Comment on above: Performed By: #### C BC #### [facility] [address] [place] [address] Dr. Navneet Godwin ANTI NEUTROPHIL CYTOPLASMIC AB (ANCA) PRon 07-05-2022 Anti-MPO Antibodies <0.2 Normal 0.0-0.9 [facility] Comment on above: Result Comment: Perf ormed at: BN Performed By: #### H GB #### [facility] [address] [place] [address] Dr. Navneet Godwin Anti-PR3 Antibodies <0.2 Normal 0.0-0.9 [facility] Comment on above: Result Comment: Perf ormed at: BN Performed By: #### H GB #### [facility] [address] [place] [address] Dr. Navneet Godwin Atypical pANCA <1:20 Normal Neg:<1:20 [facility] Comment on above: Result Comment: The atypical pANCA pattern has been observed in a significant percentage of patients with ulcerative colitis, primary sclerosing cholangitis and autoimmune hepatitis. Performed at: CB Performed By: #### H GB #### [facility] [address] [place] [address] Dr. Navneet Godwin Cytoplasmic (C-ANCA) <1:20 Normal Neg:<1:20 [facility] Comment on above: Result Comment: Perf ormed at: CB Performed By: #### H GB #### [facility] [address] [place] [address] Dr. Navneet Godwin Perinuclear (P-ANCA) <1:20 Normal Neg:<1:20 [facility] Comment on above: Result Comment: The presence of positive fluorescence exhibiting P-ANCA or C-ANCA patterns alone is not specific for the diagnosis of Phoenix's Granulomatosis (WG) or microscopic polyangiitis. Decisions about treatment should not be based solely on ANCA IFA results. The International ANCA Group Consensus recommends follow up testing of positive sera with both UT-3 and MPO-ANCA enzyme immunoassays. As many as 5% serum samples are positive only by EIA. Ref. AM J Clin Pathol 1999;111:507-513. Performed at: CB Performed By: #### H GB #### [facility] [address] [place] [address] Dr. Navneet Godwin CBC AUTO DIFFon 06-30-2022 BASO # 0.0 103/ul Normal 0.0-0.1 [facility] Comment on above: Performed By: #### C BC #### [facility] [address] [place] [address] Dr. Navneet Godwin Basophils/100 WBC (Bld) 0.7 % Normal 0.2-2.0 [facility] Comment on above: Performed By: #### C BC #### [facility] [address] [place] [address] Dr. Navneet Godwin EO # 0.1 103/ul Normal 0.0-0.7 [facility] Comment on above: Performed By: #### C BC #### [facility] [address] [place] [address] Dr. Navneet Godwin Eosinophils/100 WBC (Bld) 1.9 % Normal 0.9-7.0 [facility] Comment on above: Performed By: #### C BC #### [facility] [address] [place] [address] Dr. Navneet Godwin Erythrocyte distribution width (RBC) [Ratio] 12.5 % Normal 11.0-15.0 [facility] Comment on above: Performed By: #### C BC #### [facility] [address] [place] [address] Dr. Navneet Godwin Hematocrit (Bld) [Volume fraction] 38.6 % Critically low 42.0-54.0 [facility] Comment on above: Performed By: #### C BC #### [facility] [address] [place] [address] Dr. Navneet Godwin Hemoglobin (Bld) [Mass/Vol] 12.9 g/dL Critically low 14.0-18.0 [facility] Comment on above: Performed By: #### C BC #### [facility] [address] [place] [address] Dr. Navneet Godwin IG # 0.01 10e3/ul Normal 0.00-0.03 [facility] Comment on above: Performed By: #### C BC #### [facility] [address] [place] [address] Dr. Navneet Godwin IG % 0.2 % Normal 0.0-0.5 [facility] Comment on above: Performed By: #### C BC #### [facility] [address] [place] [address] Dr. Navneet Godwin LYMPH # 2.4 103/ul Normal 1.2-3.8 [facility] Comment on above: Performed By: #### C BC #### [facility] [address] [place] [address] Dr. Navneet Godwin Lymphocytes/100 WBC (Bld) 41.7 % Normal 20.5-60.0 [facility] Comment on above: Performed By: #### C BC #### [facility] [address] [place] [address] Dr. Navneet Godwin MANUAL DIFF REQ NO Normal [facility] Comment on above: Performed By: #### C BC #### [facility] [address] [place] [address] Dr. Navneet Godwin MCH (RBC) [Entitic mass] 29.8 pg Normal 25.9-34.0 [facility] Comment on above: Performed By: #### C BC #### [facility] [address] [place] [address] Dr. Navneet Godwin MCHC (RBC) [Mass/Vol] 33.4 g/dL Normal 29.9-35.2 [facility] Comment on above: Performed By: #### C BC #### [facility] [address] [place] [address] Dr. Navneet Godwin MCV (RBC) [Entitic vol] 89.1 fL Normal 80.0-94.0 [facility] Comment on above: Performed By: #### C BC #### [facility] [address] [place] [address] Dr. Navneet Godwin MONO # 0.6 103/ul Normal 0.3-0.8 [facility] Comment on above: Performed By: #### C BC #### [facility] [address] [place] [address] Dr. Navneet Godwin Monocytes/100 WBC (Bld) 10.5 % Normal 1.7-12.0 [facility] Comment on above: Performed By: #### C BC #### [facility] [address] [place] [address] Dr. Navneet Godwin NEUT # 2.6 103/ul Normal 1.4-6.5 [facility] Comment on above: Performed By: #### C BC #### [facility] [address] [place] [address] Dr. Navneet Godwin Neutrophils/100 WBC (Bld) 45.0 % Normal 43.0-75.0 [facility] Comment on above: Performed By: #### C BC #### [facility] [address] [place] [address] Dr. Navneet Godwin Platelet mean volume (Bld) [Entitic vol] 10.1 fL Normal 9.5-13.5 [facility] Comment on above: Performed By: #### C BC #### [facility] [address] [place] [address] Dr. Navneet Godwin PLT 296 103/ul Normal 150-450 [facility] Comment on above: Performed By: #### C BC #### [facility] [address] [place] [address] Dr. Navneet Godwin RBC 4.33 106/ul Critically low 4.70-6.10 [facility] Comment on above: Performed By: #### C BC #### [facility] [address] [place] [address] Dr. Navneet Godwin WBC 5.8 103/ul Normal 4.0-11.0 [facility] Comment on above: Performed By: #### C BC #### [facility] [address] [place] [address] Dr. Navneet Godwin PROF CHEM 8 (BAS METB)on Anion gap [Moles/Vol] 13.2 mmol/L Normal [facility] Comment on above: Performed By: #### B MP #### [facility] [address] [place] [address] Dr. Navneet Godwin Calcium [Mass/Vol] 9.1 mg/dL Normal 8.5-10.1 [facility] Comment on above: Performed By: #### B MP #### [facility] [address] [address] [address] Navneet Godwin Chloride [Moles/Vol] 106 mmol/L Normal 98-107 [facility] Comment on above: Performed By: #### B MP #### [facility] [address] [address] [address] Navneet Godwin CO2 [Moles/Vol] 23.7 mmol/L Normal 21.0-32.0 [facility] Comment on above: Performed By: #### B MP #### [facility] [address] [place] [address] Dr. Navneet Godwin Creatinine [Mass/Vol] 1.06 mg/dL Normal 0.70-1.30 [facility] Comment on above: Performed By: #### B MP #### [facility] [address] [place] [address] Dr. Navneet Godwin EGFR-AF MONTSERRATIAN >60 Normal >=60 [facility] Comment on above: Performed By: #### B MP #### [facility] [address] [place] [address] Dr. Navneet Godwin EGFR-NON AF MONTSERRATIAN >60 Normal >=60 [facility] Comment on above: Performed By: #### B MP #### [facility] [address] [address] [address] Navneet Godwin Glucose [Mass/Vol] 94 mg/dL Normal 74-106 [facility] Comment on above: Performed By: #### B MP #### [facility] [address] [address] [address] Navneet Godwin Potassium [Moles/Vol] 3.9 mmol/L Normal 3.5-5.1 [facility] Comment on above: Performed By: #### B MP #### [facility] [address] [place] [address] Dr. Navneet Godwin Sodium [Moles/Vol] 139 mmol/L Normal 136-145 [facility] Comment on above: Performed By: #### B MP #### [facility] [address], [place] [address] Dr. Navneet Godwin Urea nitrogen [Mass/Vol] 17.0 mg/dL Normal 7.0-18.0 [facility] Comment on above: Performed By: #### B MP #### [facility] [address] [place], [place] [address] Dr. Navneet Godwin Urea nitrogen/Creatinine [Mass ratio] 16.0 mg/mg Normal [facility] Comment on above: Performed By: #### B MP #### [facility] [address] [place], [place] [address] Dr. Navneet Godwin XR CHEST 2 Von [...] by: MICKY MORENO Date: 2022-05-30 10:52 Normal [facility] ECHOCARDIO M/2D COMPLETEon 0 04-18-2022 ECHOCARDIO M/2D COMPLETE Patient: PARAS GRIGSBY Exam Date: 04/18/2022 : 1965 Gender:M Ordering : DR LAMBERT JOSE . Admission #: [id number] Family : Order #: [id number] CLICK HERE TO VIEW EXAM ECHOCARDIOGRAM REPORT [...] Area(A4C): 16.30 cm2 Left Atrium Systolic Volume(A2C): 68745 mm3 Left Atrium Systolic Volume(A4C): 91072 mm3 Mitral Valve MV E to A [...] Yu M.D. on 04/19/2022 at 18:16 Normal [facility] CTA CHEST WO W CONon 022 [...] PADMINI WHITE Date: 2022-04-11 07:16 Normal [facility] HEMOGLOBINon 03-24-2022 Hemoglobin (Bld) [Mass/Vol] 13.2 g/dL Critically low 14.0-18.0 [facility] Comment on above: Performed By: #### H GB #### [facility] [address] [place] [address] Dr. Navneet Godwin Progress Note-Physicianon Progress Note-Physician [...] patient tolerated the procedure well. . Normal [facility] Comment on above: Result Comment: Elec tronically Signed By: Sg Thayer Jr, DO\.br\Date and Time Signed: 10/15/19 10:48 EST Coding Summary.on 10-11-2019 Coding Summary. CODING DATE: 019 FINAL [facility] STATUS: Home (Routine DC) PAYOR: [facility] DESCRIPTION 2888 Level 1 Laparoscopy and Related Services ADMIT DX: REASON FOR VISIT DX: K42.9 Umbilical hernia without obstruction or gangrene FINAL DX: PRINCIPAL: K42.9 Umbilical hernia without obstruction or gangrene SECONDARY: I10 Essential (primary) hypertension J44.9 Chronic obstructive pulmonary disease, unspecified PYMT PROC APC STAT DESCRIPTION DOCTOR NAME DATE 94538 5610 J1 Laparoscopy, surgical, NILL MD, Lee Wagner 10/07/2019 repair, ventral, umbilical, spigelian or epigastric hernia (includes mesh insertion, when performed); reducible 61783 Transversus abdominis Sg Thayer Jr, DO 10/07/2019 plane (TAP) block (abdominal plane block, rectus sheath block) bilateral; by injections (includes imaging guidance, when performed) XP Separate practitioner, a service that is distinct because it was performed by a different practitioner [id number] Anesthesia for hernia Sg Thayer Jr, DO [...] Revised Date Saved: 10/11/2019 11:51 am Normal [facility] Progress Note-Physicianon Progress Note-Physician Patient: PARAS GRIGSBY [...] All Problems COPD exacerbation / SNOMED CT 586078526 / Confirmed BMI 38.0-38.9,adult / SNOMED CT 626290220 / Confirmed Diabetes / SNOMED CT 943600637 / Confirmed new diagnosis on no meds yet Hypertension / SNOMED CT 7032048483 / Confirmed Hypertensive retinopathy / SNOMED CT 34962892 / Confirmed Umbilical hernia / SNOMED CT 7454091971 / Confirmed Resolved: Kidney stone / SNOMED CT 536642649 Histories Past Medical History: Resolved Kidney stone (237393900): Resolved. Family History: Heart disease Father Leukemia Mother Procedure history: Arthroscopy of knee (734169302). Comments: 09/30/2019 10:32 - Deya Guzman RN and left knee 09/18/2019 11:41 - Jose Ramon Caba RIGHT KNEE Tonsillectomy (738139701). ESWL of kidney (48146195). Arthroscopy of shoulder (446694136). Comments: 09/30/2019 10:33 - Deya Guzman RN [...] results Radiology results ECG interpretation Condition Plan [place] [employer]esthesiologists (ASA) physical status classification: Class III. Anesthetic Preoperative Plan Anesthesia: General. . Anesthetic plan, risks, benefits, and alternatives discussed with the patient and/or family. Risks discussed: nausea, vomiting, headache, sore throat, dental injury, serious complications. Patient verbalized understanding. Communication: face to face with (patient 5 minutes, Pt educated on the importance of smoking cessation.). Normal [facility] Comment on above: Result Comment: Elec tronically Signed By: Jeovany Lester DO, Sg Jim\.br\Date and Time Signed: 10/11/19 08:51 EST Main OR Intraoperative Recor don 10-08-2019 Main OR Intraoperative Record IntraOp Document Type FT Summary Primary Physician: Lee HAMPTON MD Finalized Date/Time: 10/08/19 13:41:00 Pt. Name: PARAS GRIGSBY/Sex: 1965 Male Med Rec #: [id number] Physician: Lee HAMPTON MD Financial #: [id number] Pt. Type: A Room/Bed: [facility] Admit/Disch: 10/07/19 07:08:00 - 10/07/19 15:10:00 [...] to review and send charges Gabriela Israel [facility] Case Attendance FT Entry 1 Entry 2 Entry 3 Case Attendee Jeovany Lester DO, Sg HAMPTON MD, Lee Logan RN, CNOR, Cheyenne Schaffer Role Performed Anesthesiologist of Surgeon - Primary CLINICAL STUDIES SPECIALIST Record Time In 10/07/19 09:32:00 10/07/19 09:32:00 10/07/19 09:32:00 Time Out 10/07/19 11:43:00 10/07/19 11:43:00 10/07/19 11:43:00 Procedure HERNIA REPAIR, ROBOT HERNIA REPAIR, ROBOT HERNIA REPAIR, ROBOT ASSISTED(.) ASSISTED(.) ASSISTED(.) Comments Last Modified By: Harsh RN, Gricelda House RN, Gricelda Richards RN 10/07/19 11:47:03 10/07/19 11:47:03 10/07/19 11:47:03 Entry 4 Entry 5 Case Attendee Harsh ARIAS, Gricelda Richards CST, Ashely Lynch Role Performed Crisis Intervention Counselor - Primary Scrub - Primary Time In [...] CNOR, Cheyenne Schaffer, Gricelda House RN, Churchill MESSAGING ARCHITECT, Ashely E Time Out Complete 10/07/19 10:03:00 [...] and tissue Entry 1 Skin Integrity Intact, Intercourse, Warm, and Skin Abnormality No Dry Outcomes [...] Head Large, Arm Sled Left, Other/See Comments, [place] Wedge Right Side By Gricelda House RN, [...] RN, CNOR, Gricelda Self RN, Ann, Churchill MESSAGING ARCHITECT, Maurice FARLEY, Ashely Lynch Outcomes Met? Yes [...] to transfer/transport General Comments: REPORT GIVEN TO AIR CONDITIONING SPECIALISTRN. Cheryl STRINGER RN Dressing/Packing FT Pre-Care Text: [...] Description MESH STEX ROUND 9CM Lot Number [id number] (3.6 ) [SYM9][F] [employer] Attendant FT-[employer] Catalog ?# SYM9 [F] Size 9cm Expiration Date 11/05/23 Unique Device [id number] Human Readable {01}[id number] Identifier (DEE) Barcode {[id number]{10 [id number] Machine Readable [id number] Barcode [id number] Usage Data FT Implant Site Abdomen Implant [...] Type TUBE NASOGASTIC SUMP Location mouth 18FR [[id number]][F] Quantity 1 Inserted By Sg Thayer Jr, [...] Present Upon Arrival No Inserted LF 16FR [[id number]][F] Insertion Date/Time 10/07/19 09:58:00 Urine Residual 125 [...] BLANKET MISTRAL AIR Quantity 1 Aid TORSO [[id number]][F] Fluid/[place] Unit Mistral warming system Setting high/43 Body Site Upper anterior torso Last Modified By: Gricelda House RN 10/07/19 10:32:35 Case Comments Finalized By: Angelica Israel CST Document Signatures Signed By: Gricelda House RN 10/07/19 11:47 Angelica Israel CST 10/08/19 13:40 [facility] History and Physicalon 10-07 History and Physical Patient: PARAS GRIGSBY Age: 53 years Sex: Male : 1965 Associated Diagnoses: None Author: Lee HAMPTON MD Subjective no changes to H & P [facility] Comment on above: Result Comment: Elec tronically Signed By: Lee HAMPTON MD\.br\Date and Time Signed: 10/07/19 09:08 EST Inpatient Patient Summaryon 10-07-2019 Inpatient Patient Summary [facility] Clinical Discharge Instructions PERSON INFORMATION Name: PARAS GRIGSBY [facility]ICIANS Admitting Physician: Lee HAMPTON MD Attending Physician: Lee HAMPTON MD PCP: Martina LEWIS, Lambert Discharge Diagnosis: Hernia, umbilical Comment: PATIENT EDUCATION INFORMATION Instructions: Post Op Patient Instructions - FT (CUSTOM) Medication Leaflets: Follow up: With: Address: When: Lee HAMPTON [address] [place] [address] [facility] (1) Within 7 to 10 days MEDICATION LIST Fill New Prescriptions: acetaminophen-hydrocodone (acetaminophen-hydrocodone 325 mg-5 mg oral tablet) 1 tab(s) By Mouth every 4 hours as needed for Pain take with food or milk Comment: Normal [facility] Main OR PACU I Recordon Main OR PACU I Record PACU Phase I Document Type FT Summary Primary Physician: Lee HAMPTON MD Finalized Date/Time: 10/07/19 12:51:42 Pt. Name: PARAS GRIGSBY Yessica Boyd./Sex: 1965 Male Med Rec #: [id number] Physician: Lee HAMPTON MD Financial #: [id number] Pt. Type: A Room/Bed: Admit/Disch: 10/07/19 07:08:33 [...] By: Jason Chacon RN 10/07/19 12:51 [facility] [facility] Main OR PACU II Recordon Main OR PACU II Record PACU Phase II Document Type FT Summary Primary Physician: Lee HAMPTON MD Finalized Date/Time: 10/07/19 17:37:19 Pt. Name: PARAS GRIGSBY Yessica /Sex: 1965 Male Med Rec #: [id number] Physician: Lee HAMPTON MD Financial #: [id number] Pt. Type: A Room/Bed: [facility] Admit/Disch: 10/07/19 07:08:00 - 10/07/19 15:10:00 [...] By: Karie Fletcher RN 10/07/19 17:37 Normal [facility] Main OR Preoperative Recordo n 10-07-2019 Main OR Preoperative Record PreOp Document Type FT Summary Primary Physician: Lee HAMPTON MD Finalized Date/Time: 10/07/19 10:13:38 Pt. Name: PARAS GRIGSBY/Sex: 1965 Male Med Rec #: [id number] Physician: Lee HAMPTON MD Financial #: [id number] Pt. 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 The [...] fascia was closed with a 0 Vicryl bymmbc-kr-bfoij suture. All port sites were infiltrated with [...] in good condition. Alex Roe Dictated: 10/07/2019 #[id number] Typed: 10/07/2019 #[id number] cc: Alex Hdz M.D. [facility] Comment on above: Result Comment: Elec tronically Signed By: Lee HAMPTON MDbr\Date and Time Signed: 10/07/19 13:50 EST Patient Education - Texton 1 12-08-2018 Patient Education - Text Normal [facility] UA With Cult Reflexon 2018 Bilirubin Ql (U) Negative Normal Negative [facility] Comment on above: Performed By: #### 2 239377, 8496777, 8597256, 10810172, 4196790, 5998913 #### [facility] [address] [place] [address] Clarity (U) CLEAR Normal Clear [facility] Comment on above: Performed By: #### 2 210634, 4922426, 2710018, 03437096, 1186212, 2476931 #### [facility] [address] [place] [address] Color (U) YELLOW Normal Yellow [facility] Comment on above: Performed By: #### 2 948594, 7254916, 8348934, 13752373, 9533322, 7311180 #### [facility] [address] [place] [address] Epithelial cells.squamous LM.HPF (Urine sed) [#/Area] 0-2 Normal 0-2 [facility] Comment on above: Performed By: #### 2 269719, 5384295, 1662479, 03562759, 5193070, 3378375 #### [facility] [address] [place] [address] Glucose Test strip (U) [Mass/Vol] Negative Normal Negative [facility] Comment on above: Performed By: #### 2 979354, 2173758, 2774875, 35024910, 5569919, 1057956 #### [facility] [address] [place] [address] Hemoglobin Ql (U) Negative Normal Negative [facility] Comment on above: Performed By: #### 2 143316, 0385920, 5163479, 21447970, 5765779, 3790091 #### [facility] [address] [place] [address] Ketones (U) [Mass/Vol] Negative Normal Negative [facility] Comment on above: Performed By: #### 2 315339, 6969281, 3699989, 75321223, 6249249, 7628330 #### [facility] [address] [place] [address] [place].plasma/Lith ium.RBC (Bld) [Mass ratio] 0-3 Normal 0-3 [facility] Comment on above: Performed By: #### 2 051054, 7089233, 8743716, 49549601, 0727118, 3988924 #### [facility] [address] [place] [address] Nitrite Ql (U) Negative Normal Negative [facility] Comment on above: Performed By: #### 2 499862, 1660394, 4202324, 16142820, 0182044, 4013694 #### [facility] [address] [place] [address] pH (U) 5.5 [pH] 5.0-9.0 [facility] Comment on above: Performed By: #### 2 730304, 4570931, 6770000, 70472838, 9226273, 9673500 #### [facility] [address] [place] [address] Protein (U) [Mass/Vol] Negative Normal Negative [facility] Comment on above: Performed By: #### 2 282258, 4901866, 7154430, 48840452, 1212272, 9385118 #### [facility] [address] [place] [address] Specific gravity (U) [Rel density] >=1.030 1.005-1.030 [facility] Comment on above: Performed By: #### 2 596161, 0012937, 6982413, 74090200, 9150642, 2516903 #### [facility] [address] [place] [address] UA Spec Desc Villegas Normal [facility] Comment on above: Performed By: #### 2 526773, 5125796, 1185648, 79895244, 2220034, 3994039 #### [facility] [address] [place] [address] Urobilinogen Qn (U) 0.2 {Nayeli'U}/dL Normal 0.0-1.0 [facility] Comment on above: Performed By: #### 2 059720, 6155444, 6632441, 93832846, 1608465, 4211677 #### [facility] [address] [place] [address] WBC Auto Ql (U) Negative Normal Negative [facility] Comment on above: Performed By: #### 2 820572, 7044828, 6093376, 61646257, 8434998, 9972872 #### [facility] [address] [place] [address] WBC LM.HPF (Urine sed) [#/Area] 0-5 Normal 0-5 [facility] Comment on above: Performed By: #### 2 944590, 3147130, 1397250, 82057674, 2712768, 9129341 #### [facility] [address] [place] [address] Coding Summary.on 10-01-2019 Coding Summary. CODING DATE: 019 FINAL [facility] STATUS: Home (Routine DC) PAYOR: [facility] DESCRIPTION 5521 Level 1 Imaging without [...] CphT Date Saved: 10/01/2019 06:34 am Normal [facility] XR Chest 2 Viewson 9 XR Chest [...] MD Transcribed by: ANKITA Technologist: RH Normal [facility] BUNon 09-30-2019 Urea nitrogen [Mass/Vol] 15 mg/dL Normal 5-21 [facility] Comment on above: Performed By: #### 2 482836, 4227757, 1591541, 90584084, 6564957, 6124269 #### [facility] [address] [place] [address] CBC w/Indiceson 09-30-2019 Erythrocyte distribution width (RBC) [Ratio] 13.2 % Normal 10.9-14.2 [facility] Comment on above: Performed By: #### 2 480880, 6247144, 8034310, 26347209, 2804342, 0790155 #### [facility] [address] [place] [address] Hematocrit (Bld) [Volume fraction] 42.9 % Normal 37.7-49.0 [facility] Comment on above: Performed By: #### 2 572911, 2305989, 0614051, 67245240, 0309695, 2705393 #### [facility] [address] [place] [address] Hemoglobin (Bld) [Mass/Vol] 14.7 g/dL Normal 13.5-17.5 [facility] Comment on above: Performed By: #### 2 605757, 5424834, 4044723, 93798752, 5040294, 8892105 #### [facility] [address] [place] [address] MCH (RBC) [Entitic mass] 31.4 pg Normal 27.0-34.0 [facility] Comment on above: Performed By: #### 2 687661, 7864664, 5609346, 41428231, 2729980, 3852320 #### [facility] [address] [place] [address] MCHC (RBC) [Mass/Vol] 34.2 g/dL Normal 31.4-36.0 [facility] Comment on above: Performed By: #### 2 606436, 5370495, 4907206, 51162215, 7912229, 4100871 #### [facility] [address] [place] [address] MCV (RBC) [Entitic vol] 91.9 fL Normal 80.0-100.0 [facility] Comment on above: Performed By: #### 2 948573, 5765060, 9581358, 99705700, 1350826, 2244441 #### [facility] [address] [place] [address] Platelet mean volume (Bld) [Entitic vol] 9.0 fL Normal 6.4-10.8 [facility] Comment on above: Performed By: #### 2 511775, 4041948, 0597507, 08606024, 9262289, 8831210 #### [facility] [address] [place] [address] Platelets (Bld) [#/Vol] 230.0 E9/L Normal 150.0-500.0 [facility] Comment on above: Performed By: #### 2 074977, 7185150, 9149559, 87345012, 3009499, 6451648 #### [facility] [address] [place] [address] RBC (Bld) [#/Vol] 4.7 E12/L Normal 4.3-5.9 [facility] Comment on above: Performed By: #### 2 435597, 2931146, 2431011, 21860377, 4816336, 8389377 #### [facility] [address] [place] [address] WBC corrected for nucl RBC Auto (Bld) [#/Vol] 5.7 E9/L Normal 4.0-11.0 [facility] Comment on above: Performed By: #### 2 725180, 0653340, 9136959, 89812993, 2251960, 2225928 #### [facility] [address] [place] [address] Creatinineon 09-30-2019 Creatinine [Mass/Vol] 0.8 mg/dL Normal 0.5-1.3 [facility] Comment on above: Performed By: #### 2 395661, 4232682, 8338447, 44323806, 4217262, 7252845 #### [facility] [address] [place] [address] Glucoseon 09-30-2019 Glucose [Mass/Vol] 91 mg/dL Normal 55-199 [facility] Comment on above: Performed By: #### 2 692183, 0541822, 2135549, 90452674, 1619156, 5357082 #### [facility] [address] [place] [address] Lyteson 09-30-2019 Anion gap [Moles/Vol] 13 mmol/L Normal 6-16 [facility] Comment on above: Performed By: #### 2 847232, 9829469, 2153775, 75337517, 1514918, 1369924 #### [facility] [address] [place] [address] Chloride [Moles/Vol] 109 mmol/L Normal 101-111 [facility] Comment on above: Performed By: #### 2 409524, 0410320, 8941729, 78190939, 9875484, 3726106 #### [facility] [address] [place] [address] CO2 [Moles/Vol] 22 mmol/L Normal 21-31 [facility] Comment on above: Performed By: #### 2 201221, 7104371, 0050761, 67871365, 6899032, 4924160 #### [facility] [address] [place] [address] Potassium [Moles/Vol] 4.0 mmol/L Normal 3.5-5.3 [facility] Comment on above: Performed By: #### 2 132006, 3367633, 5529099, 02353475, 5416236, 5579461 #### [facility] [address] [place] [address] Sodium [Moles/Vol] 140 mmol/L Normal 135-145 [facility] Comment on above: Performed By: #### 2 123320, 6161625, 8346793, 11364493, 5124156, 2080565 #### [facility] [address] [place] [address] eGFRon 09-30-2019 GFR/1.73 sq M predicted among blacks MDRD (S/P/Bld) [Vol rate/Area] mL/min/{1.73_m2} Normal >=59 [facility] Comment on above: Order Comment: Order added by Discern Expert. Result Comment: eGFR is race adjusted. AA=. Performed By: #### 2 817331, 7463799, 6499359, 12595979, 1484508, 8884078 #### [facility] [address] [place] [address] GFR/1.73 sq M predicted among non-blacks MDRD (S/P/Bld) [Vol rate/Area] mL/min/{1.73_m2} Normal >=59 [facility] Comment on above: Order Comment: Order added by Discern Expert. Result Comment: [employer] amy kidney disease could be indicated at eGFR's of less than 60 mL/min/1.73m2. Kidney failure is indicated at less than 15 mL/min/1.73m2. Performed By: #### 2 175869, 3979959, 0578113, 50012073, 4889032, 6717174 #### [facility] [address] [place] [address] Vital Signs Date Time Vital Sign Value Performing Clinician Facility 02-23-2023 16:25-0400 Body height 170.18 cm Yasmine Joaquin Other [facility] 02-23-2023 16:25-0400 Body mass index (BMI) [Ratio] 40.72 kg/m2 Yasmine Joaquin Other [facility] 02-23-2023 16:25-0400 Body temperature 98.8 [degF] Yasmine Joaquin Other [facility] Other 02-23-2023 16:25-0400 Body weight 117.94 kg Yasmine Joaquin Other [facility] Other 02-23-2023 16:25-0400 Diastolic blood pressure 70 mm[Hg] Yasmine Joaquin Other [facility] 02-23-2023 16:25-0400 Respiratory rate 18 /min Yasmine Jemal Other [facility] 02-23-2023 16:25-0400 SaO2% (BldA) [Mass fraction] 97 % Yasmine Jemal Other [facility] Other 02-23-2023 16:25-0400 Systolic blood pressure 131 mm[Hg] Yasmine Joaquin Other [facility] 02-17-2023 10:10-0400 Body height 170.18 cm Emma Guerrero Other [facility] Other 02-17-2023 10:10-0400 Body mass index (BMI) [Ratio] 40.72 kg/m2 Emma Yolanda Other [facility] Other 02-17-2023 10:10-0400 Body temperature 97.7 [degF] Emma Guerrero Other [facility] Other 02-17-2023 10:10-0400 Body weight 117.94 kg Emma Guerrero Other [facility] Other 02-17-2023 10:10-0400 Respiratory rate 18 /min Emma Guerrero Other [facility] Other 02-17-2023 10:10-0400 SaO2% (BldA) [Mass fraction] 94 % Emma Guerrero Other [facility] Other 02-15-2022 18:45-0400 Body height 170.18 cm Dimple Arguetaault Other [facility] Other 02-15-2022 18:45-0400 Body mass index (BMI) [Ratio] 39.46 kg/m2 Dimple Arguetaault Other [facility] Other 02-15-2022 18:45-0400 Body temperature 98.2 [degF] Dimlpe Arguetaault Other [facility] Other 02-15-2022 18:45-0400 Body weight 114.31 kg Dimple Srini Other [facility] Other 02-15-2022 18:45-0400 Diastolic blood pressure 93 mm[Hg] Dimple Srini Other [facility] Other 02-15-2022 18:45-0400 Respiratory rate 18 /min Dimple Srini Other [facility] Other 02-15-2022 18:45-0400 SaO2% (BldA) [Mass fraction] 96 % Dimple Milligan Other [facility] Other 02-15-2022 18:45-0400 Systolic blood pressure 158 mm[Hg] Dimple Milligan Other [facility] Other Encounters Encounter Date Encounter Type Care Provider Facility Start: 04-30-2024 End: 05-01-2024 ambulatory [facility] Start: 03-28-2024 End: 03-28-2024 ambulatory DEBORA [...] Available Start: 05-29-2023 End: 05-29-20[facility] Start: 03-15-2023 End: 03-16-2023 ambulatory MARYURI HADDAD Facility:[facility] Start: 02-25-2023 End: 02-25-2023 ambulatory ANABELLE AGGARWAL . Facility:[facility] Start: 02-23-2023 End: 02-23-2023 ambulatory Yasmine Joaquin Other [facility] Start: 02-23-2023 Office outpatient vi sit 15 minutes Yasmine Joaquin [facility] Start: 02-17-2023 End: 02-17-2023 ambulatory Emma Guerrero Other [facility] Other Start: 02-17-2023 Office outpatient vi sit 15 minutes Emma Guerrero [facility] Start: 01-28-2023 Encounter for genera l adult medical examination without abnormal findings DR LAMBERT JOSE . [facility] Start: 01-21-2023 End: 01-22-[address] [...] 02-15-2022 End: 02-15-2022 ambulatory Dimple Milligan Other [facility] Other Start: 02-15-2022 Office outpatient vi sit 15 minutes Dimple Milligan [facility] Procedures Date Procedure Procedure Detail Performing Clinician Start: 01-21-2023 PSA screening MARYURI CHAMPION [facility] Comment on above: Performed By: #### P [place] [place] [facility] #### [facility] [address] [place] [address] Dr. Navneet Godwin Payers Date Payer Category Payer Unknown [id number] 2.16.84 0.1.414884.3.579.2.593 1965 Unknown [id number] 2.16.84 0.1.811308.3.579.2.593 1965 Unknown [id number] 2.16.84 0.1.671553.3.579.2.593 1965 Unknown [id number] 2.16.84 0.1.279566.3.579.2.593 1965 Unknown [id number] 2.16.84 0.1.907259.3.579.2.593 1965 Unknown [id number] 2.16.84 0.1.694862.3.579.2.593 1965 Unknown [id number] 2.16.84 0.1.793727.3.579.2.593 1965 Unknown [id number] 2.16.84 0.1.589726.3.579.2.593 1965 Unknown [id number] 2.16.84 0.1.533601.3.579.2.593 1965 Unknown [id number] 2.16.84 0.1.573309.3.579.2.593 1965 Unknown [id number] 2.16.84 0.1.268527.3.579.2.593 1965 Unknown [id number] 2.16.84 0.1.022959.3.579.2.593 1965 Unknown [id number] 2.16.84 0.1.091633.3.579.2.593 1965 Unknown [id number] 2.16.84 0.1.157859.3.579.2.1259 1965 Unknown [id number] 2.16.84 0.1.219189.3.579.2.1259 1965 Unknown [id number] 2.16.84 0.1.538739.3.579.2.1259 1965 Unknown [id number] 2.16.840 .1.002894.3.579.2.9 1965 Unknown [id number] 2.16.840 .1.861912.3.579.2.1259 1961 Unknown [id number] 2. 16.840.1.846268.19 Social History Date Type Detail Facility Sex Assigned At [facility] Other Clinical Notes 02-15-2022 to 04-30-2024 Note Date & Type Note Facility 04-30-2024 Note Cardiovascular [facility] SUBJECTIVE Chief Complaint Patient presents with [...] Problem List Diagnosis Chest pain CAD in [place] artery Essential hypertension COPD (chronic obstructive pulmonary disease) ([facility]) S/P drug eluting coronary stent placement Hyperplastic polyp of intestine Dyspnea Shortness of breath Severe persistent asthma with acute exacerbation Past Medical History: Diagnosis Date COPD (chronic obstructive pulmonary disease) ([facility]) Coronary artery disease Hyperlipidemia Hypertension Sleep apnea [...] Final Atrial Rate 08/03/2022 53 BPM Final UT Interval 08/03/2022 164 ms Final QRS DURATION 08/03/2022 100 ms Final QT Interval 08/03/2022 424 ms Final QTC CALCULATION(BAZETT) 08/03/2022 397 ms Final P [place] 08/03/2022 39 degrees Final R-[place] 08/03/2022 -7 degrees Final T Wave [place] 08/03/2022 51 degrees Final Auto WBC 08/03/2022 4.48 4.00 - 10.60 10*3/uL Tigist (more content not included)... [facility] 04-30-2024 Note Patient here per Dr. Jose for abnormal stress test. Says PCP ordered testing for SOB. He does see pulmonology in [place]. He states the only recent chest pain [...] All other systems reviewed and are negative. [facility] 02-21-2024 Note [facility] Cardiology Clinic Note Chief Complaint: Patient here [...] history of COPD (chronic obstructive pulmonary disease) ([facility]), Coronary artery disease, Hyperlipidemia, Hypertension, [...] Normal cardiac output/cardi (more content not included)... [facility] 11-27-2023 Note [facility] Cardiology Clinic Note Chief Complaint: Patient here [...] history of COPD (chronic obstructive pulmonary disease) ([facility]), Coronary artery disease, Hyperlipidemia, Hypertension, [...] plus or min (more content not included)... [facility] 05-29-2023 Note Patient here for 6 m o follow up CAD, hypertension, and dyslipidemia. He had routine labs in January 2023. Denies chest pain. Says his VILLAVICENCIO remains unchanged. Review of Systems Cardiovascular: Positive for dyspnea on exertion. Respiratory: Positive for cough and wheezing. Musculoskeletal: Positive for arthritis, back pain, joint pain and myalgias. All other systems reviewed and are negative. [facility] 05-29-2023 Note Cardiology Clinic No te Subjective Paras Grigsby is a 57 y.o. year old male patient with coronary artery disease status post left circumflex PCI in 2021 and hypertension seen in follow-up. seen for No chief complaint on file. Patient Active Problem List Diagnosis Chest pain CAD in [place] artery Essential hypertension COPD (chronic obstructive pulmonary disease) ([facility]) S/P drug eluting coronary stent [...] 5. Follow-up with Dr. Serna in the [facility] in the next 2 to 4 [...] 04/18/2022 LV syst (more content not included)... [facility] 02-23-2023 Evaluation note Encounter Date Diagnosis Assessment Notes Feb, Urticaria (ICD-10 - L50.9) Discussed diagnosis with patient. We will send in Rx of prednisone taper to use as directed. Continue zekw-jua-druwoat Benadryl/Zyrtec or Claritin. Advised patient to avoid hot showers/baths encouraged use of cool compresses. Patient needs to follow-up with PCP if this rash does not improve with treatment. Immediate evaluation in ER for signs and symptoms as discussed. Patient verbalizes understanding and is agreeable to treatment plan. [facility] Other 04-14-2023 Evaluation note* Encounter Date Diagnosis [...] concerns Feb, Acute cough (ICD-10 - R05.1) [facility] 04-12-2022 Evaluation note* Encounter Date Diagnosis Assessment Notes Treatment Notes Treatment Clinical Notes Feb, Infected tooth (ICD-10 - K04.7) Take medications as directed.Highly encourage patient to contact dentist TIARA for further treatment of infection. Do not take OTC medications like ibuprofen with prescriptions [facility] Other History general Narrative - Reported* Type Description Date Medical History Benign essential HTN Surgical History knee surgery Surgical History shoulder surgery Surgical History tonsillectomy and adenoidectomy Surgical History wisdom teeth Surgical History vasectomy Hospitalization History see above [facility] Other History general Narrative - Reported* Type Description Date Medical History Benign essential HTN Medical History High cholesterol Surgical History knee surgery Surgical History shoulder surgery Surgical History tonsillectomy and adenoidectomy Surgical History wisdom teeth Surgical History vasectomy Surgical History stent 2021 Hospitalization History see above [facility] Other Summary Purpose Family History No Family [...] All Problems COPD exacerbation / SNOMED CT 750060148 / Confirmed BMI 38.0-38.9,adult / SNOMED CT 077868516 / Confirmed Diabetes / SNOMED CT 083173834 / Confirmed new diagnosis on no meds yet Hypertension / SNOMED CT 3005548465 / Confirmed Hypertensive retinopathy / SNOMED CT 02620318 / Confirmed Umbilical hernia / SNOMED CT 1172506518 / Confirmed Resolved: Kidney stone / SNOMED CT 002215197 Physical Examination Vital Signs 10/07/2019 14:40 EST [...] section and content) DATE CREATED AUTHOR 02/03/2020 [facility] DATE CREATED AUTHOR AUTHOR'S ORGANIZ ATION 03/19/2023 [facility] DATE CREATED AUTHOR AUTHOR'S ORGANIZ ATION 03/31/2024 [facility] EPIC DATE CREATED AUTHOR AUTHOR'S ORGANIZ ATION 05/09/2024 [facility] REASON FOR VISIT (unrecogniz ed section [...] BE BASED ON THE PRIMARY CLINICAL RECORDS. [employer] [facility]. provides no warranty or guarantee of the accuracy or completeness of information in this document.
== END 2024-07-09 15:15 | disposition home or self-care (01) ==
LOC: RAD 15:15
PROVIDERS: PCP Family Medicine; Visit Provider Internal Medicine Interventional Cardiology
DX: M54.2 Cervicalgia (principal)
CPT/HCPCS: 72040

== ENCOUNTER 2025-04-24 08:20 | Outpatient (OUT) | payer OTHER, SELFPAY ==
--- OUTSIDE RECORDS SUMMARY | 2025-04-24 08:25 | XMS_ITS | CCD ---
Author Organization [facility] Care Team Providers Care Director Of Testing Name Role Phone Dimple Milligan Unavailable Emma [...] Unavailable HOY ., DR VERDIN Admitting Unavailable TEXHOMA, DR PADMINI Ravi Consulting Unavailable HOY ., [...] HOY ., DR VERDIN Primary Care Unavailable ELTAHAWSharmaine, DR CHACON Consulting Unavailable MARTINA ., DR VERDIN Primary Care Unavailable ELTAHAWY, DR CHACON Attending Unavailable ELTAHAWY, DR CHACON Admitting Unavailable SAMSA, MARYURI Consulting Unavailable MARTINA ., DR VERDIN Primary Care Unavailable SAMSA, MARYURI Attending Unavailable SAMSA, MARYURI Admitting Unavailable MARTINA ., DR VERDIN Consulting Unavailable MARTINA ., DR VERDIN Primary Care Unavailable SONY ., DR VERDIN Attending Unavailable SONY ., DR VERDIN Admitting Unavailable MORENO, WINCHA Consulting Unavailable ELTAHAWY, DR CHACON Consulting Unavailable MARTINA ., DR VERDIN Primary Care Unavailable ELTAHAWSharmaine, DR CHACON Attending Unavailable BRYANNATAPARVEZ, DR CHACON Admitting Unavailable Lambert Mack MD Primary Care Provider [phone] GIOVANNY TATUM Referring Unavailable JR. GLENDA, HERACLIO Beach Attending Unavaila DEBORA Hubbard Attending Unavailable ANDRE PRESCOTT Attending Unavailable DEBORA DUNHAM Attending Unavailable DEBORA DUNHAM Attending Unavailable LAMBERT MACK Referring Unavailable GIOVANNY TATUM Attending Unavailable GIOVANNY TATUM Referring Unavailable ISAAC TANG Attending Unavailable JUSTINO SERNA Attending Unavailable JUSTINO SERNA Attending Unavailable SREE XAVIER Attending Unavailable Medications Current Medications Medication Drug Class(es) Dates Sig (Normalized) Sig (Original) amoxicillin 875 mg oral tablet (1 source) Penicillin-class Antibacterial Start: 02-15-2022 take 1 tablet by mouth every eight hours Amoxicillin 875 MG 1 tablet Orally every 8 hrs for 10 day(s) Feb, Active aspirin 81 mg chewable tablet (15 sources) Platelet Aggregation Inhibitor, Nonsteroidal Anti-inflammatory Drug Start: 08-03-2022 aspirin 81 MG chewable tablet CHEW AND SWALLOW 1 TABLET IN THE MORNING 08/03/2022 Active atorvastatin 80 mg oral tablet (15 sources) HMG-CoA Reductase Inhibitor Start: 08-03-2022 take 1 tablet by mouth at bedtime atorvastatin (Lipitor) 80 MG tablet Take 80 mg by mouth at bedtime 08/03/2022 Active Breztri Aerosphere (1 source) Breztri Aerosphe re Active carvedilol 25 mg oral tablet (16 sources) alpha-Adrenergic Kali, beta-Adrenergic Kali take 1 tablet by mouth in the morning carvedilol (Coreg) 25 MG tablet Take 1 tablet by mouth in the morning and 1 tablet before bedtime. Active Coreg Active chlorhexidine gluconate 1.2 mg/ml mouthwash (1 source) Start: 02-15-2022 take 10 mL by mouth twice daily Peridex 0.12 % gargle 10 ml Mouth/Throat twice daily Feb, Active clopidogrel 75 mg oral tablet (15 sources) P2Y12 Platelet Inhibitor Start: 09-06-2023 take 1 tablet by mouth in the morning clopidogrel (Plavix) 75 MG tablet Take 75 mg by mouth in the morning. 09/06/2023 Active Clopidogrel Bisu lfate 75 MG Oral for 90 Days Active diclofenac sodium 75 mg delayed release oral tablet (14 sources) Nonsteroidal Anti-inflammatory Drug take 1 tablet by mouth in the morning diclofenac (Voltaren) 75 MG EC tablet Take 75 mg by mouth in the morning and 75 mg before bedtime. Do not crush, chew, or split.. Active End: 07-15-2024 take 1 tablet by mouth in the morning diclofenac (Voltaren) 50 MG EC tablet Take 50 mg by mouth in the morning and 50 mg before bedtime. Do not crush, chew, or split. . 07/15/2024 Discontinued (Therapy completed) doxazosin 4 mg oral tablet (15 sources) alpha-Adrenergic Kali take 1 tablet by mouth once daily doxazosin (Cardura) 4 MG tablet Take 1 tablet by mouth Daily Active 2 ml dupilumab 150 mg/ml auto-injector (14 sources) Interleukin-4 Receptor alpha Antagonist Start: 07-15-20 dupilumab (Dupixent) 300 MG/2ML injection Indications: Severe persistent asthma with (acute) exacerbation (CMS/[facility]) Inject 2 mL (300 mg) under the skin every 14 (fourteen) days 4 mL 6 07/15/2024 Active Start: 01-24-2024 End: 07-15-2024 Dupixent 300 MG/2ML injectio n 01/24/2024 07/15/2024 Discontinued (Reorder) famotidine 40 mg oral tablet (4 sources) Histamine-2 Receptor Antagonist Start: 02-17-2023 End: 07-15-2024 take 1 tablet by mouth at bedtime famotidine (Pepcid) 40 MG tablet Take 40 mg by mouth at bedtime 02/18/2023 Active fenofibrate 145 mg oral tablet (15 sources) Peroxisome Proliferator Receptor alpha Agonist take 1 tablet by mouth in the morning fenofibrate (Tricor) 145 MG tablet Take 145 mg by mouth in the morning. Active ferrous sulfate 325 mg oral tablet (11 sources) take 1 tablet by mouth at mealtime ferrous sulfate 325 (65 Fe) MG tablet Take 325 mg by mouth in the morning. Take with meals. Active furosemide 40 mg oral tablet (17 sources) Loop Diuretic Start: 11-05-2024 furosemide (Lasix) 40 MG tablet 11/05/2024 Active Start: 08-03-2022 End: 12-04-2024 take 2 tablets by mouth once daily furosemide (Lasix) 20 MG tablet Take 40 mg by mouth Daily 08/03/2022 12/04/2024 Discontinued Start: 08-03-2022 furosemide (La six) 20 MG tablet TAKE ONE-HALF (1/2) TABLET DAILY 08/03/2022 Active Furosemide 20 MG Oral for 90 Days Active hydrOXYzine hydrochloride 50 mg oral tablet (12 sources) Antihistamine hydrOXYzine HCl (Atarax) 50 MG tablet Take by mouth. Active lisinopril 20 mg oral tablet (15 sources) Angiotensin Converting Enzyme Inhibitor lisinopril 20 MG tab let Take by mouth Daily. Active Lisinopril 10 MG Oral for 90 Days [...] Drug Class(es) Dates Sig (Normalized) Sig (Original) chlorthalidone 25 mg oral tablet (6 sources) Thiazide-like Diuretic Start: 12-07-2023 End: 01-16-2025 take 1 tablet by mouth in the morning chlorthalidone (Hygroton) 25 MG tablet Take 25 mg by mouth in the morning. 12/07/2023 07/15/2024 Discontinued (Therapy completed) End: 07-15-2024 chlorthalidone (HYGROTEN) 15 MG tablet Chlorthalidone 07/15/2024 Discontinued (Therapy completed) olmesartan (4 sources) Angiotensin 2 Receptor Kali Benicar Not-Taking triamcinolone acetonide 40 mg/ml injectable suspension (3 sources) Corticosteroid Start: 02-17-2023 Kenalog-40 14 Feb, 2023 40 mg Problems Active Problems Problem Classification Problem Date Documented Date Episodic/Chronic Allergic reactions (7 sources) Urticaria, unspecified; Translations: [Idiopathic urticaria] Onset: 02-25-2023 Episodic Asthma (17 sources) Moderate persistent asthma, uncomplicated; Translations: [Exacerbation of severe persistent asthma] Onset: 07-01-2022 07-15-2024 Chronic Chronic obstructive pulmonary disease and bronchiectasis (6 sources) Chronic obstructive lung disease; Translations: [Chronic obstructive pulmonary disease, unspecified] Onset: 08-04-2022 12-04-2024 Chronic Coronary atherosclerosis and other heart disease (13 sources) Atherosclerotic heart disease of [place] coronary artery without angina pectoris; Translations: [Coronary atherosclerosis due to lipid rich plaque] Onset: 08-03-2022 Chronic Disorders of lipid metabolism (2 sources) Mixed hyperlipidemia; Translations: [Mixed hyperlipidemia] Onset: 04-18-2025 Chronic Essential hypertension (12 sources) Essential (primary) hypertension; Translations: [Essential hypertension] Onset: 06-30-2022 Chronic Heart valve disorders (1 source) 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; Translations: [RHEUMATIC D/O AORTIC TRICUSPID VALV] Onset: 04-20-2022 Chronic Joint disorders and dislocations; trauma-related (4 sources) Derangement of left knee; Translations: [Unspecified internal derangement of left knee] 11-20-2024 Chronic Joint disorders and dislocations; trauma-related (2 sources) Acute tear of medial meniscus of left knee; Translations: [Other tear of medial meniscus, current injury, left knee, initial encounter] 12-05-2024 Episodic Other aftercare (4 sources) Encounter for therapeutic drug level monitoring; Translations: [ENC THERAPEUTC DRUG LEVL MONITORING] Onset: 03-15-2023 Episodic Other aftercare (1 source) Other shelter (current) drug therapy; Translations: [OTH GROUP HOME CURRENT DRUG THERAPY] Onset: 03-18-2023 Episodic Other aftercare (1 source) 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; 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] Onset: 02-27-2023 Episodic Other non-traumatic joint disorders (4 sources) Pain in left knee; Translations: [Pain in joint, lower leg] 11-19-2024 Episodic Other screening for suspected conditions (not mental disorders or infectious disease) (1 source) Encounter for screening for malignant neoplasm of prostate; Translations: [ENC SCREEN MALIG NEOPLASM PROSTATE] Onset: 01-28-2023 Episodic Residual codes; unclassified (4 [...] Translations: [SHORTNESS OF BREATH] Onset: 04-18-2022 Episodic Other lower respiratory disease (2 sources) Other forms of dyspnea; Translations: [Other forms of dyspnea] Onset: 05-29-2023 Episodic Unclassified (2 sources) Acute cough R05.1 Results Test Name Value Interpretation Reference Range Facility Office Visiton 04-18-2025 Follow-up visit [id number] Jada Grigsby 1965 M Date Provider Department Center 04/18/2025 [id number], ADAM GENNARO [facility] Family History Problem Relation Age of Onset Heart failure Father Coronary artery disease Father Family Status - Relation Status Age at Mother Father Level of Service:63118 OK OFFICE/OUTPATIENT ESTABLISHED MOD MDM 30 MIN Normal [facility] MR KNEE LEFT WO IV CONTRASTo n 11-27-2024 MR KNEE LEFT WO IV CONTRAST Exam: MR KNEE LEFT WO IV CONTRAST History: Medial knee pain. Technique: Multiplanar multisequence MRI of the knee was performed without contrast. Comparison: Radiographs November 20, 2024 Findings: Quadriceps and patellar tendons are intact. Metallic susceptibility artifact in the region of the superior patella secondary to metallic foreign body within the subcutaneous soft tissues. Small joint effusion. Anterior and posterior cruciate ligaments are intact. The medial collateral ligament, lateral collateral ligament, and popliteus are intact. Complex tear of the body through posterior horn of the medial meniscus including complete radial tear of the posterior horn. Peripheral extrusion of the body of the medial meniscus. The lateral meniscus is intact. No well-defined or measurable cartilage defect. Subtle thin linear transversely oriented hypointense signal within the medial tibial plateau located approximately 6 mm distal to the subchondral cortex with adjacent bone marrow edema is concerning for impaction fracture. No subchondral cortical depression. Popliteal fossa structures are intact. Thin Ortega's cyst measures approximately 4.5 cm in craniocaudal length. IMPRESSION: Complex tear of the medial meniscus. Impaction fracture of the medial tibial plateau. ELECTRONICALLY SIGNED BY: Varun Ceballos, DO Normal Not Available XR Knee - left 1 or 2 Viewso n 11-20-2024 Imaging Result: AP and Lateral left knee: No acute fracture or dislocation Small metalic foreign body in prepatellar soft tissues best seen on lateral view Joint space preservation to medial and lateral weight bearing surface. Mild patella femoral changes for arthritis Impression: no acute bony process left knee with age indeterminate metallic foreign body. [facility] Healthcare Radiology Study observation (narrative) [facility] Office Visiton 10-07-2024 Follow-up visit [id number] Jada Grigsby 1965 M Date Provider Department Center 10/07/2024 271-JUSTINO SERNA GENNARO [facility] Family History Problem Relation Age of Onset Heart failure Father Coronary artery disease Father Family Status - Relation Status Age at Father Level of Service:26836 OK OFFICE/OUTPATIENT ESTABLISHED LOW MDM 20 MIN Normal [facility] MR CERVICAL SPINE WO CONTRAS Ton 07-30-2024 MR CERVICAL SPINE WO CONTRAST TITLE OF EXAM: MR - MRI CERVICAL SPINE WO REASON FOR EXAM: Chronic neck pain, bilateral arm numbness and tingling TECHNIQUE: Multisequence, multiplanar MRI of the cervical spine COMPARISON: Cervical spine MRI 06/17/2020 FINDINGS: General findings: There are 7 nonrib-bearing cervical vertebrae. No fracture; normal vertebral body heights. Anatomic alignment of the vertebral bodies and posterior elements. Straightening of normal cervical lordosis. Craniocervical and atlantoaxial relationships: Anatomic. Marrow: Normal. Spinal canal: No mass. Normal cord signal and caliber. Paraspinal muscles and visualized soft tissues: Thickening of the posterior longitudinal ligament C2-4, similar to prior. Degenerative findings: C1-C2: No significant degenerative changes. No spinal canal or neural foraminal stenosis. C2-3: Mild left facet osteoarthrosis. Mild left neural foraminal stenosis. No significant right foraminal or spinal canal narrowing. C3-4: Posterior longitudinal ligament thickening as above. Mild left facet osteoarthrosis. Mild left neural foraminal and mild to moderate spinal canal stenosis. No significant right foraminal narrowing. C4-5: Mild to moderate right facet osteoarthrosis. Mild uncovertebral proliferation. Mild right neural foraminal stenosis. No significant left foraminal narrowing. Mild spinal canal narrowing. C5-6: Mild uncovertebral proliferation. Mild bilateral neural foraminal and spinal canal stenosis. C6-7: Mild degenerative disc disease. Broad-based disc bulge. Uncovertebral proliferation. Moderate to severe bilateral neural foraminal stenosis. Moderate spinal canal narrowing. C7-T1: No significant degenerative changes. No spinal canal or neural foraminal stenosis. IMPRESSION: 1. No cervical spine fracture or significant listhesis. 2. Straightening of normal cervical lordosis could be positional, developmental, or reflect muscle spasm. 3. Degenerative changes as detailed, most significantly contributing to moderate to severe neural foraminal stenosis bilaterally at C6-7. Spinal canal stenosis is greatest at this level as well, moderate. DICTATED ON: 07/30/2024 3:33 PM This report has been electronically signed in approved by the interpreting radiologist. Electronically Signed Dl Barragan M.D. 2024-07-30 15:37:43 Normal Not Available 36on 07-10-2024 36 In regarding to Yong Wood ine x ray from yesterday From: Justino Serna MD Sent: 07/10/2024 3:03 PM EDT To: Karon Silvestre MA Subject: RE: Scan Please let pt know there is evidence of cervical disc space narrowing; I would recommend he speak to his PCP about an MRI and/or referral to a account management specialist Pt was informed about the message Normal [facility] Office Visiton 07-09-2024 Follow-up visit [id number] Jada Grigsby 1965 M Date Provider Department Center 07/09/2024 271-JUSTINO SERNA Family History Problem Relation Age of Onset Heart failure Father Coronary artery disease Father Family Status - Relation Status Age at Father Level of Service:66042 OK OFFICE/OUTPATIENT ESTABLISHED MOD MDM 30 MIN Normal [facility] Office Visiton 04-30-2024 Follow-up visit [id number] Jada Grigsby 1965 M Date Provider Department Center 04/30/2024 ISAAC TELLEZ Family History Problem Relation Age of Onset Heart failure Father Coronary artery disease Father Family Status - Relation Status Age at Father Level of Service:36678 OK OFFICE/OUTPATIENT ESTABLISHED MOD MDM 30 MIN Reason for Visit and Comments: Shortness of Breath [824243] Coronary Artery Disease [187] Normal [facility] THEOPHYLLINEon 03-15-2023 THEOPHYLLINE 5.9 ug/mL Critically low 10.0-20.0 [facility] Comment on above: Performed By: #### T ALAN #### [facility] [address] [address] [address] Navneet Godwin CHUCKIE by IFAon 01-23-2023 Antinuclear Antibodies, IFA Positive Abnormal [facility] Comment on above: Result Comment: Nega tive <1:80 Borderline 1:80 Positive >1:80 Performed By: #### C BC #### [facility] [address] [address] [address] Navneet Godwin Centriole Pattern Normal [facility] Comment on above: Performed By: #### C BC #### [facility] [address] [address] [address] Navneet Godwin Centromere Pattern Normal [facility] Comment on above: Performed By: #### C BC #### [facility] [address] [address] [address] Navneet Godwin Homogeneous Pattern 1:80 Normal [facility] Comment on above: Result Comment: ICAP nomenclature: AC-1 Performed By: #### C BC #### [facility] [address] [address] [address] Navneet Godwin Midbody Pattern Normal [facility] Comment on above: Performed By: #### C BC #### [facility] [address] [address] [address] Navneet Godwin Note: Comment Normal [facility] Comment on above: Result Comment: For more [...] titers Nucleosomes, Histones Drug-induced SLE Speckled Sm, DRUG ROOM CLERK, SCL-70, SLE,MCTD,PSS (diffuse form), SS-A/SS-B Sjogrens Nucleolar SCL-70, PM-1/SCL High titers Scleroderma, PM/DM Centromere Centromere PSS (limited form) w/Crest syndrome variable Nuclear Dot Sp100,[id number] Primary Biliary Cirrhosis Nuclear GP210, Primary Biliary Cirrhosis Membrane ofelia A,B,C Performed By: #### C BC #### [facility] [address] [place] [address] Dr. Navneet Godwin Nuclear Dot Pattern Normal [facility] Comment on above: Performed By: #### C BC #### [facility] [address] [address] [address] Navneet Godwin Nuclear Membrane Pattern Normal [facility] Comment on above: Performed By: #### C BC #### [facility] [address] [address] [address] Navneet Godwin Nucleolar Pattern Normal [facility] Comment on above: Performed By: #### C BC #### [facility] [address] [address] [address] Navneet Godwin PCNA Pattern Normal [facility] Comment on above: Performed By: #### C BC #### [facility] [address] [place] [address] Dr. Navneet Godwin Speckled Pattern Normal [facility] Comment on above: Performed By: #### C BC #### [facility] [address] [address] [address] Navneet Godwin Spindle Apparatus Pattern Normal [facility] Comment on above: Performed By: #### C BC #### [facility] [address] [place] [address] Dr. Navneet Godwin INSULINon 01-23-2023 Insulin 50.9 uIU/mL Critically high 2.6-24.9 [facility] Comment on above: Performed By: #### I NSULIN #### [facility] [address] [place] [address] Dr. Navneet Godwin ANTISTREPTOLYSIN O AB (ASO)o n 01-22-2023 Antistreptolysin O Ab 55.6 IU/mL Normal 0.0-200.0 [facility] Comment on above: Performed By: #### H GB #### [facility] [address] [place] [address] Dr. Navneet Godwin RHEUMATOID FACTORon 01-23-20 23 RA Latex Turbid. <10.0 Normal <14.0 [facility] Comment on above: Performed By: #### H GB #### [facility] [address] [place] [address] Dr. Navneet Godwin CBC AUTO DIFFon 01-21-2023 BASO # 0.0 103/ul Normal 0.0-0.1 [facility] Comment on above: Performed By: #### C BC #### [facility] [address] [place] [address] Dr. Navneet Godwin Basophils/100 WBC (Bld) 0.8 % Normal 0.2-2.0 [facility] Comment on above: Performed By: #### C BC #### [facility] [address] [place] [address] Dr. Navneet Godwin EO # 0.1 103/ul Normal 0.0-0.7 [facility] Comment on above: Performed By: #### C BC #### [facility] [address] [place] [address] Dr. Navneet Godwin Eosinophils/100 WBC (Bld) 2.1 % Normal 0.9-7.0 [facility] Comment on above: Performed By: #### C BC #### [facility] [address] [place] [address] Dr. Navneet Godwin Erythrocyte distribution width (RBC) [Ratio] 13.7 % Normal 11.0-15.0 [facility] Comment on above: Performed By: #### C BC #### [facility] [address] [place] [address] Dr. Navneet Godwin Hematocrit (Bld) [Volume fraction] 37.6 % Critically low 42.0-54.0 [facility] Comment on above: Performed By: #### C BC #### [facility] [address] [place] [address] Dr. Navneet Godwin Hemoglobin (Bld) [Mass/Vol] 12.7 g/dL Critically low 14.0-18.0 [facility] Comment on above: Performed By: #### C BC #### [facility] [address] [place] [address] Dr. Navneet Godwin IG # 0.01 10e3/ul Normal 0.00-0.03 [facility] Comment on above: Performed By: #### C BC #### [facility] [address] [place] [address] Dr. Navneet Godwin IG % 0.2 % Normal 0.0-0.5 [facility] Comment on above: Performed By: #### C BC #### [facility] [address] [place] [address] Dr. Navneet Godwin LYMPH # 1.8 103/ul Normal 1.2-3.8 [facility] Comment on above: Performed By: #### C BC #### [facility] [address] [place] [address] Dr. Navneet Godwin Lymphocytes/100 WBC (Bld) 33.1 % Normal 20.5-60.0 [facility] Comment on above: Performed By: #### C BC #### [facility] [address] [place] [address] Dr. Navneet Godwin MANUAL DIFF REQ NO Normal [facility] Comment on above: Performed By: #### C BC #### [facility] [address] [place] [address] Dr. Navneet Godwin MCH (RBC) [Entitic mass] 29.4 pg Normal 25.9-34.0 [facility] Comment on above: Performed By: #### C BC #### [facility] [address] [place] [address] Dr. Navneet Godwin MCHC (RBC) [Mass/Vol] 33.8 g/dL Normal 29.9-35.2 [facility] Comment on above: Performed By: #### C BC #### [facility] [address] [place] [address] Dr. Navneet Godwin MCV (RBC) [Entitic vol] 87.0 fL Normal 80.0-94.0 [facility] Comment on above: Performed By: #### C BC #### [facility] [address] [place] [address] Dr. Navneet Godwin MONO # 0.4 103/ul Normal 0.3-0.8 [facility] Comment on above: Performed By: #### C BC #### [facility] [address] [place] [address] Dr. Navneet Godwin Monocytes/100 WBC (Bld) 8.1 % Normal 1.7-12.0 [facility] Comment on above: Performed By: #### C BC #### [facility] [address] [place] [address] Dr. Navneet Godwin NEUT # 2.9 103/ul Normal 1.4-6.5 [facility] Comment on above: Performed By: #### C BC #### [facility] [address] [place], [place] [id number] Dr. aNvneet Godwin Neutrophils/100 WBC (Bld) 55.7 % Normal 43.0-75.0 [facility] Comment on above: Performed By: #### C BC #### [facility] [address] [place] [address] Dr. Navneet Godwin Platelet mean volume (Bld) [Entitic vol] 10.6 fL Normal 9.5-13.5 [facility] Comment on above: Performed By: #### C BC #### [facility] [address] [place] [address] Dr. Navneet Godwin PLT 236 103/ul Normal 150-450 [facility] Comment on above: Performed By: #### C BC #### [facility] [address] [place] [address] Dr. Navneet Godwin RBC 4.32 106/ul Critically low 4.70-6.10 [facility] Comment on above: Performed By: #### C BC #### [facility] [address] [place] [address] Dr. Navneet Godwin WBC 5.3 103/ul Normal 4.0-11.0 [facility] Comment on above: Performed By: #### C BC #### [facility] [address] [place] [address] Dr. Navneet Godwin CRPon 01-21-2023 CRP [Mass/Vol] mg/L Normal <=1.0 [facility] Comment on above: Performed By: #### H GB #### [facility] [address] [place] [address] Dr. Navneet Godwin FREE THYROXINE INDEX T7on FTI 2.59 Normal 1.30-4.50 [facility] Comment on above: Performed By: #### C BC #### [facility] [address] [place] [address] Dr. Navneet Godwin T3U 32.0 % Critically low 33.0-40.0 [facility] Comment on above: Performed By: #### C BC #### [facility] [address] [place] [address] Dr. Navneet Godwin T4 [Mass/Vol] 8.10 ug/dL Normal 4.50-12.10 [facility] Comment on above: Performed By: #### C BC #### [facility] [address] [place] [address] Dr. Navneet Godwin GLYCOHEMOGLOBIN A1Con 2022 ADA RECOMMENDATION SEE BELOW Normal [facility] Comment on above: Result Comment: ADA RECOMMENDED LIMIT 4.0 - 6.0 ADA THERAPEUTIC TARGET < 7.0 ACTION SUGGESTED > 7.0 Performed By: #### H GB #### [facility] [address] [place] [address] Dr. Navneet Godwin Glucose [Mass/Vol] 126 mg/dL Normal [facility] Comment on above: Performed By: #### H GB #### [facility] [address] [place] [address] Dr. Navneet Godwin HbA1c (Bld) [Mass fraction] 6.0 % Normal 4.5-6.2 [facility] Comment on above: Performed By: #### H GB #### [facility] [address] [place] [address] Dr. Navneet Godwin LIPID PROFILEon 01-21-2023 CHOL-HDL RATIO NORM SEE BELOW Normal [facility] Comment on above: Result Comment: 3.3 - 4.4 LOW RISK 4.4 - 7.1 AVERAGE RISK 7.1 - 11.0 MODERATE RISK >11.0 HIGH RISK Performed By: #### C BC #### [facility] [address] [place] [address] Dr. Navneet Godwin Cholesterol [Mass/Vol] 96 mg/dL Normal <=200 [facility] Comment on above: Performed By: #### C BC #### [facility] [address] [place] [address] Dr. Navneet Godwin Cholesterol in HDL [Mass/Vol] 45 mg/dL Normal 40-60 [facility] Comment on above: Performed By: #### C BC #### [facility] [address] [place] [address] Dr. Navneet Godwin Cholesterol in LDL [Mass/Vol] 37.2 mg/dL Normal [facility] Comment on above: Performed By: #### C BC #### [facility] [address] [address] [address] Navneet Godwin Cholesterol.total/C holesterol in HDL [Mass ratio] 2.1 {ratio} Normal [facility] Comment on above: Performed By: #### C BC #### [facility] [address] [address] [address] Navneet Godwin HDL NORMAL > or = 60 mg/dl - LO W CARDIOVASCULAR RISK <40 mg/dl - HIGH CARDIOVASCULAR RISK Normal [facility] Comment on above: Performed By: #### C BC #### [facility] [address] [address] [address] Navneet Godwin LDL CALC NORMAL SEE BELOW Normal [facility] Comment on above: Result Comment: <100 mg/dl OPTIMAL 100 - 129 mg/dl NEAR OR ABOVE OPTIMAL 130 - 159 mg/dl BORDERLINE HIGH 160 - 189 mg/dl HIGH >190 mg/dl VERY HIGH Performed By: #### C BC #### [facility] [address] [place] [address] Dr. Navneet Godwin Triglyceride [Mass/Vol] 69 mg/dL Normal <=150 [facility] Comment on above: Performed By: #### C BC #### [facility] [address] [place] [address] Dr. Navneet Godwin VLDL CALC 13.8 mg/dL Normal [facility] Comment on above: Performed By: #### C BC #### [facility] [address] [place] [address] Dr. Navneet Godwin OCC BLD IMMUNO SCREENon 01-04 OCCULT BLOOD Negative Normal NEGATIVE [facility] Comment on above: Performed By: #### O BSCRN #### [facility] [address] [place] [address] Dr. Navneet Godwin PROF 14(COMP METB)on 023 Albumin [Mass/Vol] 4.1 g/dL Normal 3.4-5.0 [facility] Comment on above: Performed By: #### C BC #### [facility] [address] [place] [address] Dr. Navneet Godwin Albumin/Globulin [Mass ratio] 1.4 {ratio} Normal [facility] Comment on above: Performed By: #### C BC #### [facility] [address] [place] [address] Dr. Navneet Godwin ALP [Catalytic activity/Vol] 40 U/L Critically low 46-116 [facility] Comment on above: Performed By: #### C BC #### [facility] [address] [place] [address] Dr. Navneet Godwin ALT [Catalytic activity/Vol] 33 U/L Normal 16-63 [facility] Comment on above: Performed By: #### C BC #### [facility] [address] [place] [address] Dr. Navneet Godwin Anion gap [Moles/Vol] 14.6 mmol/L Normal [facility] Comment on above: Performed By: #### C BC #### [facility] [address] [place] [address] Dr. Navneet Godwin AST [Catalytic activity/Vol] 33 U/L Normal 15-37 [facility] Comment on above: Performed By: #### C BC #### [facility] [address] [place] [address] Dr. Navneet Godwin Bilirubin [Mass/Vol] 0.4 mg/dL Normal 0.2-1.0 [facility] Comment on above: Performed By: #### C BC #### [facility] [address] [place] [address] Dr. Navneet Godwin Calcium [Mass/Vol] 9.2 mg/dL Normal 8.5-10.1 [facility] Comment on above: Performed By: #### C BC #### [facility] [address] [place] [address] Dr. Navneet Godwin Chloride [Moles/Vol] 109 mmol/L Critically high 98-107 [facility] Comment on above: Performed By: #### C BC #### [facility] [address] [place] [address] Dr. Navneet Godwin CO2 [Moles/Vol] 23.1 mmol/L Normal 21.0-32.0 [facility] Comment on above: Performed By: #### C BC #### [facility] [address] [place] [address] Dr. Navneet Godwin Creatinine [Mass/Vol] 1.12 mg/dL Normal 0.70-1.30 [facility] Comment on above: Performed By: #### C BC #### [facility] [address] [address] [address] Navneet Godwin EGFR-AF PERUVIAN >60 Normal >=60 [facility] Comment on above: Performed By: #### C BC #### [facility] [address] [place] [address] Dr. Navneet Godwin EGFR-NON AF PERUVIAN >60 Normal >=60 [facility] Comment on above: Performed By: #### C BC #### [facility] [address] [place] [address] Dr. Navneet Godwin Globulin (S) [Mass/Vol] 2.9 g/dL Normal [facility] Comment on above: Performed By: #### C BC #### [facility] [address] [place] [address] Dr. Navneet Godwin Glucose [Mass/Vol] 109 mg/dL Critically high 74-106 [facility] Comment on above: Performed By: #### C BC #### [facility] [address] [place] [address] Dr. Navneet Godwin Potassium [Moles/Vol] 3.7 mmol/L Normal 3.5-5.1 [facility] Comment on above: Performed By: #### C BC #### [facility] [address] [place] [address] Dr. Navneet Godwin Protein [Mass/Vol] 7.0 g/dL Normal 6.4-8.2 [facility] Comment on above: Performed By: #### C BC #### [facility] [address] [place] [address] Dr. Navneet Godwin Sodium [Moles/Vol] 143 mmol/L Normal 136-145 [facility] Comment on above: Performed By: #### C BC #### [facility] [address] [place] [address] Dr. Navneet Godwin Urea nitrogen [Mass/Vol] 18.0 mg/dL Normal 7.0-18.0 [facility] Comment on above: Performed By: #### C BC #### [facility] [address] [place] [address] Dr. Navneet Godwin Urea nitrogen/Creatinine [Mass ratio] 16.1 mg/mg Normal [facility] Comment on above: Performed By: #### C BC #### [facility] [address] [place] [address] Dr. Navneet Godwin TSHon 01-21-2023 TSH 1.912 uIU/mL Normal 0.358-3.740 [facility] Comment on above: Performed By: #### H GB #### [facility] [address] [place] [address] Dr. Navneet Godwin URIC ACID SERUMon 01-21-2023 Urate [Mass/Vol] 6.9 mg/dL Normal 3.5-7.2 [facility] Comment on above: Performed By: #### H GB #### [facility] [address] [place] [address] Dr. Navneet Godwin THEOPHYLLINEon 12-26-2022 THEOPHYLLINE 5.3 ug/mL Critically low 10.0-20.0 [facility] Comment on above: Performed By: #### C BC #### [facility] [address] [place] [address] Dr. Navneet Godwin LIPID PROFILEon 10-01-2022 CHOL-HDL RATIO NORM SEE BELOW Normal [facility] Comment on above: Result Comment: 3.3 - 4.4 LOW RISK 4.4 - 7.1 AVERAGE RISK 7.1 - 11.0 MODERATE RISK >11.0 HIGH RISK Performed By: #### L IPID, CMP #### [facility] [address] [place] [address] Dr. Navneet Godwin Cholesterol [Mass/Vol] 92 mg/dL Normal <=200 [facility] Comment on above: Performed By: #### L IPID, CMP #### [facility] [address] [address] [address] Navneet Godwin Cholesterol in HDL [Mass/Vol] 40 mg/dL Normal 40-60 [facility] Comment on above: Performed By: #### L IPID, CMP #### [facility] [address] [address] [address] Navneet Godwin Cholesterol in LDL [Mass/Vol] 33.2 mg/dL Normal [facility] Comment on above: Performed By: #### L IPID, CMP #### [facility] [address] [address] [address] Navneet Godwin Cholesterol.total/C holesterol in HDL [Mass ratio] 2.3 {ratio} Normal [facility] Comment on above: Performed By: #### L IPID, CMP #### [facility] [address] [address] [address] Navneet Godwin HDL NORMAL > or = 60 mg/dl - LO W CARDIOVASCULAR RISK <40 mg/dl - HIGH CARDIOVASCULAR RISK Normal [facility] Comment on above: Performed By: #### L IPID, CMP #### [facility] [address] [address] [address] Navneet Godwin LDL CALC NORMAL SEE BELOW Normal [facility] Comment on above: Result Comment: <100 mg/dl OPTIMAL 100 - 129 mg/dl NEAR OR ABOVE OPTIMAL 130 - 159 mg/dl BORDERLINE HIGH 160 - 189 mg/dl HIGH >190 mg/dl VERY HIGH Performed By: #### L IPID, CMP #### [facility] [address] [address] [address] Navneet Godwin Triglyceride [Mass/Vol] 94 mg/dL Normal <=150 [facility] Comment on above: Performed By: #### L IPID, CMP #### [facility] [address] [address] [address] Navneet Godwin VLDL CALC 18.8 mg/dL Normal [facility] Comment on above: Performed By: #### L IPID, CMP #### [facility] [address] [address] [address] Navneet Godwin PROF 14(COMP METB)on 022 Albumin [Mass/Vol] 3.6 g/dL Normal 3.4-5.0 [facility] Comment on above: Performed By: #### L IPID, CMP #### [facility] [address] [address] [address] Navneet Godwin Albumin/Globulin [Mass ratio] 1.2 {ratio} Normal [facility] Comment on above: Performed By: #### L IPID, CMP #### [facility] [address] [address] [address] Navneet Godwin ALP [Catalytic activity/Vol] 45 U/L Critically low 46-116 [facility] Comment on above: Performed By: #### L IPID, CMP #### [facility] [address] [address] [address] Navneet Godwin ALT [Catalytic activity/Vol] 25 U/L Normal 16-63 [facility] Comment on above: Performed By: #### L IPID, CMP #### [facility] [address] [address] [address] Navneet Godwin Anion gap [Moles/Vol] 13.5 mmol/L Normal [facility] Comment on above: Performed By: #### L IPID, CMP #### [facility] [address] [address] [address] Navneet Godwin AST [Catalytic activity/Vol] 37 U/L Normal 15-37 [facility] Comment on above: Performed By: #### L IPID, CMP #### [facility] [address] [address] [address] Navneet Godwin Bilirubin [Mass/Vol] 0.4 mg/dL Normal 0.2-1.0 [facility] Comment on above: Performed By: #### L IPID, CMP #### [facility] [address] [address] [address] Navneet Godwin Calcium [Mass/Vol] 8.9 mg/dL Normal 8.5-10.1 [facility] Comment on above: Performed By: #### L IPID, CMP #### [facility] [address] [address] [address] Navneet Godwin Chloride [Moles/Vol] 109 mmol/L Critically high 98-107 [facility] Comment on above: Performed By: #### L IPID, CMP #### [facility] [address] [place] [address] Dr. Navneet Godwin CO2 [Moles/Vol] 25.3 mmol/L Normal 21.0-32.0 [facility] Comment on above: Performed By: #### L IPID, CMP #### [facility] [address] [place] [address] Dr. Navneet Godwin Creatinine [Mass/Vol] 1.07 mg/dL Normal 0.70-1.30 [facility] Comment on above: Performed By: #### L IPID, CMP #### [facility] [address] [place] [address] Dr. Navneet Godwin EGFR-AF PERUVIAN >60 Normal >=60 [facility] Comment on above: Performed By: #### L IPID, CMP #### [facility] [address] [place] [address] Dr. Navneet Godwin EGFR-NON AF PERUVIAN >60 Normal >=60 [facility] Comment on above: Performed By: #### L IPID, CMP #### [facility] [address] [place] [address] Dr. Navneet Godwin Globulin (S) [Mass/Vol] 3.1 g/dL Normal [facility] Comment on above: Performed By: #### L IPID, CMP #### [facility] [address] [place] [address] Dr. Navneet Godwin Glucose [Mass/Vol] 115 mg/dL Critically high 74-106 [facility] Comment on above: Performed By: #### L IPID, CMP #### [facility] [address] [place] [address] Dr. Navneet Godwin Potassium [Moles/Vol] 3.8 mmol/L Normal 3.5-5.1 [facility] Comment on above: Performed By: #### L IPID, CMP #### [facility] [address] [place] [address] Dr. Navneet Godwin Protein [Mass/Vol] 6.7 g/dL Normal 6.4-8.2 [facility] Comment on above: Performed By: #### L IPID, CMP #### [facility] [address] [place] [address] Dr. Navneet Godwin Sodium [Moles/Vol] 144 mmol/L Normal 136-145 [facility] Comment on above: Performed By: #### L IPID, CMP #### [facility] [address] [place] [address] Dr. Navneet Godwin Urea nitrogen [Mass/Vol] 21.0 mg/dL Critically high 7.0-18.0 [facility] Comment on above: Performed By: #### L IPID, CMP #### [facility] [address] [place] [address] Dr. Navneet Godwin Urea nitrogen/Creatinine [Mass ratio] 19.6 mg/mg Normal [facility] Comment on above: Performed By: #### L IPID, CMP #### [facility] [address] [place] [address] Dr. Navneet Godwin ASPERGILLUS AB, QUANTITATIVE DIDon 07-08-2022 Aspergillus flavus Negative Normal Neg:<1:1 [facility] Comment on above: Performed By: #### C BC #### [facility] [address] [place] [address] Dr. Navneet Godwin Aspergillus fumigatus Negative Normal Neg:<1:1 [facility] Comment on above: Performed By: #### C BC #### [facility] [address] [place] [address] Dr. Navneet Godwin Aspergillus niger Negative Normal Neg:<1:1 [facility] Comment on above: Performed By: #### C BC #### [facility] [address] [place] [address] Dr. Navneet Godwin IMMUNOGLOBULIN E, TOTALon Immunoglobulin E, Total 102 IU/mL Normal 6-495 [facility] Comment on above: Performed By: #### C BC #### [facility] [address] [place] [address] Dr. Navneet Godwin ANTI NEUTROPHIL CYTOPLASMIC AB (ANCA) PRon 07-05-2022 Anti-MPO Antibodies <0.2 Normal 0.0-0.9 [facility] Comment on above: Result Comment: Perf ormed at: BN Performed By: #### H GB #### [facility] [address] [address] [address] Navneet Godwin Anti-PR3 Antibodies <0.2 Normal 0.0-0.9 [facility] Comment on above: Result Comment: Perf ormed at: BN Performed By: #### H GB #### [facility] [address] [place] [address] Dr. Navneet Godwin Atypical pANCA <1:20 Normal Neg:<1:20 [facility] Comment on above: Result Comment: The atypical pANCA pattern has been observed in a significant percentage of patients with ulcerative colitis, primary sclerosing cholangitis and autoimmune hepatitis. Performed at: CB Performed By: #### H GB #### [facility] [address] [address] [address] Navneet Godwin Cytoplasmic (C-ANCA) <1:20 Normal Neg:<1:20 [facility] Comment on above: Result Comment: Perf ormed at: CB Performed By: #### H GB #### [facility] [address] [place] [address] Dr. Navneet Godwin Perinuclear (P-ANCA) <1:20 Normal Neg:<1:20 [facility] Comment on above: Result Comment: The presence of positive fluorescence exhibiting P-ANCA or C-ANCA patterns alone is not specific for the diagnosis of [place]'s Granulomatosis (WG) or microscopic polyangiitis. Decisions about treatment should not be based solely on ANCA IFA results. The [employer] ANCA [employer] Consensus recommends follow up testing of positive sera with both OK-3 and MPO-ANCA enzyme immunoassays. As many as 5% serum samples are positive only by EIA. Ref. AM J Clin Pathol 1999;111:507-513. Performed at: CB Performed By: #### H GB #### [facility] [address] [place] [address] Dr. Navneet Godwin CBC AUTO DIFFon 06-30-2022 BASO # 0.0 103/ul Normal 0.0-0.1 [facility] Comment on above: Performed By: #### C BC #### [facility] [address] [place] [address] Dr. Navneet Godwin Basophils/100 WBC (Bld) 0.7 % Normal 0.2-2.0 [facility] Comment on above: Performed By: #### C BC #### [facility] [address] [place] [address] Dr. Navneet Godwin EO # 0.1 103/ul Normal 0.0-0.7 [facility] Comment on above: Performed By: #### C BC #### [facility] [address] [place] [address] Dr. Navneet Godwin Eosinophils/100 WBC (Bld) 1.9 % Normal 0.9-7.0 [facility] Comment on above: Performed By: #### C BC #### [facility] [address] [place] [address] Dr. Navneet Godwin Erythrocyte distribution width (RBC) [Ratio] 12.5 % Normal 11.0-15.0 [facility] Comment on above: Performed By: #### C BC #### [facility] [address] [place] [address] Dr. Navneet Godwin Hematocrit (Bld) [Volume fraction] 38.6 % Critically low 42.0-54.0 [facility] Comment on above: Performed By: #### C BC #### [facility] [address] [place] [address] Dr. Navneet Godwin Hemoglobin (Bld) [Mass/Vol] 12.9 g/dL Critically low 14.0-18.0 [facility] Comment on above: Performed By: #### C BC #### [facility] [address] [place] [address] Dr. Navneet Godwin IG # 0.01 10e3/ul Normal 0.00-0.03 [facility] Comment on above: Performed By: #### C BC #### [facility] [address] [place] [address] Dr. Navneet Godwin IG % 0.2 % Normal 0.0-0.5 [facility] Comment on above: Performed By: #### C BC #### [facility] [address] [place] [address] Dr. Navneet Godwin LYMPH # 2.4 103/ul Normal 1.2-3.8 [facility] Comment on above: Performed By: #### C BC #### [facility] [address] [place] [address] Dr. Navneet Godwin Lymphocytes/100 WBC (Bld) 41.7 % Normal 20.5-60.0 [facility] Comment on above: Performed By: #### C BC #### [facility] [address] [place] [address] Dr. Navneet Godwin MANUAL DIFF REQ NO Normal [facility] Comment on above: Performed By: #### C BC #### [facility] [address] [place] [address] Dr. Navneet Godwin MCH (RBC) [Entitic mass] 29.8 pg Normal 25.9-34.0 [facility] Comment on above: Performed By: #### C BC #### [facility] [address] [place] [address] Dr. Navneet Godwin MCHC (RBC) [Mass/Vol] 33.4 g/dL Normal 29.9-35.2 [facility] Comment on above: Performed By: #### C BC #### [facility] [address] [place] [address] Dr. Navneet Godwin MCV (RBC) [Entitic vol] 89.1 fL Normal 80.0-94.0 [facility] Comment on above: Performed By: #### C BC #### [facility] [address] [place] [address] Dr. Navneet Godwin MONO # 0.6 103/ul Normal 0.3-0.8 [facility] Comment on above: Performed By: #### C BC #### [facility] [address] [place] [address] Dr. Navneet Godwin Monocytes/100 WBC (Bld) 10.5 % Normal 1.7-12.0 [facility] Comment on above: Performed By: #### C BC #### [facility] [address] [place] [address] Dr. Navneet Godwin NEUT # 2.6 103/ul Normal 1.4-6.5 [facility] Comment on above: Performed By: #### C BC #### [facility] [address] [place] [address] Dr. Navneet Godwin Neutrophils/100 WBC (Bld) 45.0 % Normal 43.0-75.0 [facility] Comment on above: Performed By: #### C BC #### [facility] [address] [place] [address] Dr. Navneet Godwin Platelet mean volume (Bld) [Entitic vol] 10.1 fL Normal 9.5-13.5 [facility] Comment on above: Performed By: #### C BC #### [facility] [address] [place] [address] Dr. Navneet Godwin PLT 296 103/ul Normal 150-450 [facility] Comment on above: Performed By: #### C BC #### [facility] [address] [place] [address] Dr. Navneet Godwin RBC 4.33 106/ul Critically low 4.70-6.10 [facility] Comment on above: Performed By: #### C BC #### [facility] [address] [place] [address] Dr. Navneet Godwin WBC 5.8 103/ul Normal 4.0-11.0 [facility] Comment on above: Performed By: #### C BC #### [facility] [address] [place] [address] Dr. Navneet Godwin PROF CHEM 8 (BAS METB)on Anion gap [Moles/Vol] 13.2 mmol/L Normal [facility] Comment on above: Performed By: #### B MP #### [facility] [address] [place] [address] Dr. Navneet Godwin Calcium [Mass/Vol] 9.1 mg/dL Normal 8.5-10.1 [facility] Comment on above: Performed By: #### B MP #### [facility] [address] [address] [address] Navneet Godwin Chloride [Moles/Vol] 106 mmol/L Normal 98-107 [facility] Comment on above: Performed By: #### B MP #### [facility] [address] [address] [address] Navneet Godwin CO2 [Moles/Vol] 23.7 mmol/L Normal 21.0-32.0 [facility] Comment on above: Performed By: #### B MP #### [facility] [address] [address] [address] Navneet Godwin Creatinine [Mass/Vol] 1.06 mg/dL Normal 0.70-1.30 [facility] Comment on above: Performed By: #### B MP #### [facility] [address] [address] [address] Navneet Godwin EGFR-AF PERUVIAN >60 Normal >=60 [facility] [place] [facility] Comment on above: Performed By: #### B MP #### [facility] [address] [address] [address] Navneet Godwin EGFR-NON AF PERUVIAN >60 Normal >=60 [facility] Comment on above: Performed By: #### B MP #### [facility] [address] [place] [address] Dr. Navneet Godwin Glucose [Mass/Vol] 94 mg/dL Normal 74-106 [facility] Comment on above: Performed By: #### B MP #### [facility] [address] [address] [address] Navneet Godwin Potassium [Moles/Vol] 3.9 mmol/L Normal 3.5-5.1 [facility] Comment on above: Performed By: #### B MP #### [facility] [address] [address] [address] Navneet Godwin Sodium [Moles/Vol] 139 mmol/L Normal 136-145 [facility] Comment on above: Performed By: #### B MP #### [facility] [address] [place], [place] [address] Dr. Navneet Godwin Urea nitrogen [Mass/Vol] 17.0 mg/dL Normal 7.0-18.0 [facility] Comment on above: Performed By: #### B MP #### [facility] [address] [place], [place] [address] Dr. Navneet Godwin Urea nitrogen/Creatinine [Mass ratio] 16.0 mg/mg Normal [facility] Comment on above: Performed By: #### B MP #### [facility] [address] [place], [place] [address] Dr. Navneet Godwin XR CHEST 2 Von [...] by: MICKY MORENO Date: 2022-05-30 10:52 Normal [facility] ECHOCARDIO M/2D COMPLETEon 0 04-18-2022 ECHOCARDIO M/2D COMPLETE Patient: PARAS GRIGSBY Exam Date: 04/18/2022 : 1965 Gender:M Ordering : DR LAMBERT MACK . Admission #: [id number] Family : Order #: [id number] CLICK HERE TO VIEW EXAM ECHOCARDIOGRAM REPORT [...] Area(A4C): 16.30 cm2 Left Atrium Systolic Volume(A2C): 09806 mm3 Left Atrium Systolic Volume(A4C): 42987 mm3 Mitral Valve MV E to A [...] Gradient: 4 mm[Hg] Right Atrium Dictated by: Heraclio Yu M.D. on 04/19/2022 at 18:10 Approved by: Heraclio Yu M.D. on 04/19/2022 at 18:16 Normal [facility] CTA CHEST WO W CONon 022 CTA [...] WHITE Date: 2022-04-11 07:16 Normal [facility] HEMOGLOBINon 03-24-2022 Hemoglobin (Bld) [Mass/Vol] 13.2 g/dL Critically low 14.0-18.0 [facility] Comment on above: Performed By: #### H GB #### [facility] [address] [place] [address] Dr. Nanveet Godwin Progress Note-Physicianon Progress Note-Physician Patient: PARAS [...] The patient tolerated the procedure well. . [facility] Comment on above: Result Comment: Elec tronically Signed By: Sg Thayer Jr, DO\.br\Date and Time Signed: 10/15/19 10:48 EST Coding Summary.on 10-11-2019 Coding Summary. CODING DATE: 019 FINAL [facility] STATUS: Home (Routine DC) PAYOR: Medical [employer] APC DESCRIPTION 9670 Level 1 Laparoscopy and Related Services ADMIT DX: REASON FOR VISIT DX: K42.9 Umbilical hernia without obstruction or gangrene FINAL DX: PRINCIPAL: K42.9 Umbilical hernia without obstruction or gangrene SECONDARY: I10 Essential (primary) hypertension J44.9 Chronic obstructive pulmonary disease, unspecified PYMT PROC APC STAT DESCRIPTION DOCTOR NAME DATE 75884 9259 J1 Laparoscopy, surgical, Lee HALE MD 10/07/2019 repair, ventral, umbilical, spigelian or epigastric hernia (includes mesh insertion, when performed); reducible 64812 Transversus abdominis Sg Thayer Jr, DO 10/07/2019 plane (TAP) block (abdominal plane block, rectus sheath block) bilateral; by injections (includes imaging guidance, when performed) XP Separate practitioner, a service that is distinct because it was performed by a different practitioner 08317 Anesthesia for hernia Sg Thayer Jr, DO [...] Revised Date Saved: 10/11/2019 11:51 am Normal [facility] Progress Note-Physicianon Progress Note-Physician Patient: PARAS [...] All Problems COPD exacerbation / SNOMED CT 247254229 / Confirmed BMI 38.0-38.9,adult / SNOMED CT 436434564 / Confirmed Diabetes / SNOMED CT 487217140 / Confirmed new diagnosis on no meds yet Hypertension / SNOMED CT 9036063925 / Confirmed Hypertensive retinopathy / SNOMED CT 70100892 / Confirmed Umbilical hernia / SNOMED CT 1508625400 / Confirmed Resolved: Kidney stone / SNOMED CT 728190156 Histories Past Medical History: Resolved Kidney stone (489724673): Resolved. Family History: Heart disease Father Leukemia Mother Procedure history: Arthroscopy of knee (901053744). Comments: 09/30/2019 10:32 - Deya Guzman RN and left knee 09/18/2019 11:41 - Jose Ramon Caba RIGHT KNEE Tonsillectomy (233584878). ESWL of kidney (25206911). Arthroscopy of shoulder (364709201). Comments: 09/30/2019 10:33 - Deya Guzman RN [...] results Radiology results ECG interpretation Condition Plan [place] [employer]esthesiologists (ASA) physical status classification: Class III. Anesthetic Preoperative Plan Anesthesia: General. . Anesthetic plan, risks, benefits, and alternatives discussed with the patient and/or family. Risks discussed: nausea, vomiting, headache, sore throat, dental injury, serious complications. Patient verbalized understanding. Communication: face to face with (patient 5 minutes, Pt educated on the importance of smoking cessation.). Normal [facility] Comment on above: Result Comment: Elec tronically Signed By: Sg Thayer Jr, DO\.br\Date and Time Signed: 10/11/19 08:51 EST Main OR Intraoperative Recor don 10-08-2019 Main OR Intraoperative Record IntraOp Document Type FT Summary Primary Physician: Lee HALE MD Finalized Date/Time: 10/08/19 13:41:00 Pt. Name: PARAS GRIGSBY/Sex: 1965 Male Med Rec #: [id number] Physician: Lee HALE MD Financial #: [id number] Pt. Type: A Room/Bed: [place] [address] Admit/Disch: 10/07/19 07:08:00 - 10/07/19 15:10:00 Institution: [...] undocked at this time by this RN. Cheryl stringer rn 10/08/19 Chart opened to review and send charges Gabriela Israel CUSTOMER SUCCESS DIRECTOR Case Attendance FT Entry 1 Entry 2 Entry 3 Case Attendee Jeovany Lester DO, Sg HALE MD, Lee Logan RN, CNOR, Cheyenne Schaffer Role Performed Anesthesiologist of Surgeon - Primary MALL PLANT CARETAKER Record Time In 10/07/19 09:32:00 10/07/19 09:32:00 10/07/19 09:32:00 Time Out 10/07/19 11:43:00 10/07/19 11:43:00 10/07/19 11:43:00 Procedure HERNIA REPAIR, ROBOT HERNIA REPAIR, ROBOT HERNIA REPAIR, ROBOT ASSISTED(.) ASSISTED(.) ASSISTED(.) Comments Last Modified By: Harsh RN, Gricelda House RN, Gricelda Richards RN 10/07/19 11:47:03 10/07/19 11:47:03 10/07/19 11:47:03 Entry 4 Entry 5 Case Attendee Harsh ARIAS, Gricelda Richards CST, Ashely Lynch Role Performed Set Staff Fitter - Primary Scrub - Primary Time In [...] Yes Time Out Jeovany Lester DO, Sg A, Given Participants ALEXIA LEWIS, Lee Wagner, Doreen RN, CNOR, Cheyenne Schaffer, Gricelda House RN, Churchill CUSTOMER SUCCESS DIRECTOR, Ashely Lynch Time Out Complete 10/07/19 10:03:00 [...] MESH Primary Procedure Yes Primary Surgeon Lee HALE MD Start 10/07/19 10:05:00 Stop 10/07/19 11:36:00 [...] and tissue Entry 1 Skin Integrity Intact, Nicholson, Warm, and Skin Abnormality No Dry Outcomes [...] Head Large, Arm Sled Left, Other/See Comments, [place] Wedge Right Side By Gricelda House RN, Blank Outcomes Met? Yes RN, CNOR, Cheyenne [...] 09:35:00 10/07/19 11:26:00 By Doreen RN, CNOR, Cheyenne House RN, Karime Ghotra Churchill CUSTOMER SUCCESS DIRECTOR, Maurice FARLEY, Ashely Lynch Outcomes Met? 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 Yes Last Modified By: Gricelda House RN 10/07/19 10:46:56 Post-Care Text: The patient is free from signs and symptoms of injury caused by extraneous objects Drains/Tubes FT Pre-Care Text: Administers care to invasive device sites Entry 1 Device Type TUBE NASOGASTIC SUMP Location mouth 18FR [[id number]][F] Quantity 1 Inserted By Sg Thayer Jr, [...] Present Upon Arrival No Inserted LF 16FR [[id number]][F] Insertion Date/Time 10/07/19 09:58:00 Urine Residual 125 [...] Designated OR Area Culture Source urine from [place] Specimens Ordered No Frozen Section Times Outcomes Met? Yes Last Modified By: Gricelda House RN 10/07/19 10:33:26 Post-Care Text: The patient is free from signs and symptoms of injury caused by extraneous objects The patient is free from signs and symptoms of infection Temperature Control Entry 1 Temperature Control BLANKET MISTRAL AIR Quantity 1 Aid TORSO [[id number]][F] Fluid/[place]ari[place] Unit Mistral warming system Setting high/43 Body Site Upper anterior torso Last Modified By: Gricelda House RN 10/07/19 10:32:35 Case Comments Finalized By: Angelica Israel CST Document Signatures Signed By: Gricelda House RN 10/07/19 11:47 Angelica Israel CST 10/08/19 13:40 [facility] History and Physicalon 10-07 History and Physical Patient: PARAS GRIGSBY Age: 53 years Sex: Male : 1965 Associated Diagnoses: None Author: Lee HALE MD Subjective no changes to H & P [facility] Comment on above: Result Comment: Elec tronically Signed By: Lee HALE MD\.br\Date and Time Signed: 10/07/19 09:08 EST Inpatient Patient Summaryon 10-07-2019 Inpatient Patient Summary [facility] Clinical Discharge Instructions PERSON INFORMATION Name: PARAS GRIGSBY PHYSICIANS Admitting Physician: Lee HALE MD Attending Physician: Lee HALE MD PCP: Lamebrt Mack MD Discharge Diagnosis: Hernia, umbilical Comment: PATIENT EDUCATION INFORMATION Instructions: Post Op Patient Instructions - FT (CUSTOM) Medication Leaflets: Follow up: With: Address: When: Lee HALE [address] [place] [id number] [facility] () Within 7 to 10 days MEDICATION LIST Fill New Prescriptions: acetaminophen-hydrocodone (acetaminophen-hydrocodone 325 mg-5 mg oral tablet) 1 tab(s) By Mouth every 4 hours as needed for Pain take with food or milk Comment: [facility] Main OR PACU I Recordon Main OR PACU I Record PACU Phase I Document Type FT Summary Primary Physician: Lee HALE MD Finalized Date/Time: 10/07/19 12:51:42 Pt. Name: PARAS GRIGSBY /Sex: 1965 Male Med Rec #: [id number] Physician: Lee HALE MD Financial #: [id number] Pt. Type: A Room/Bed: [facility] Admit/Disch: 10/07/19 07:08:33 - Institution: Case Times [...] By: Jason Chacon RN 10/07/19 12:51 Normal [facility] Main OR PACU II Recordon Main OR PACU II Record PACU Phase II Document Type FT Summary Primary Physician: Lee HALE MD Finalized Date/Time: 10/07/19 17:37:19 Pt. Name: PARAS GRIGSBY Yessica MercadoB./Sex: 1965 Male Med Rec #: [id number] Physician: Lee HALE MD Financial #: [id number] Pt. Type: A Room/Bed: Admit/Disch: 10/07/19 07:08:00 [...] By: Karie Fletcher RN 10/07/19 17:37 Normal [facility] Main OR Preoperative Recordo n 10-07-2019 Main OR Preoperative Record PreOp Document Type FT Summary Primary Physician: Lee HALE MD Finalized Date/Time: 10/07/19 10:13:38 Pt. Name: PARAS GRIGSBY/Sex: 1965 Male Med Rec #: [id number] Physician: Lee HALE MD Financial #: [id number] Pt. Type: A Room/Bed: [facility] Admit/Disch: 10/07/19 07:08:33 - Institution: Case Times [...] By: Gricelda House RN 10/07/19 10:13 Normal [facility] Operative Reporton 9 Operative Report Date of Surgery: 12/2018 SURGEON: Lee Hale M.D. PREOPERATIVE DIAGNOSIS: Enlarging umbilical hernia POSTOPERATIVE [...] the supine position. General anesthesia was induced. [place] catheter was inserted using sterile technique. 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 The [...] fascia was closed with a 0 Vicryl [id number] suture. All port sites were infiltrated with the remaining Exparel solution. The skin was then closed with interrupted 4-0 subcuticular Monocryl sutures and skin glue. Sterile dressings were applied as well as a pressure dressing on the umbilical area and abdominal binder. The patient tolerated the procedure well. [place] catheter was removed. He was extubated and sent to the Recovery Room in good condition. Lee Hale M.D. gls Dictated: 10/07/2019 #[id number] Typed: 10/07/2019 #[id number] cc: Alex Hdz M.D. [facility] Comment on above: Result Comment: Elec tronically Signed By: Lee HALE MD\Date and Time Signed: 10/07/19 13:50 EST Patient Education - Texton 1 12-08-2018 Patient Education - Text Normal [facility] UA With Cult Reflexon 2018 Bilirubin Ql (U) Negative Normal Negative [facility] Comment on above: Performed By: #### 2 344316, 4424429, 0462443, 08995507, 0281202, 0198236 #### [facility] [address] [place] [address] Clarity (U) CLEAR Normal Clear [facility] Comment on above: Performed By: #### 2 721950, 5936765, 1610685, 94578661, 1999661, 8628947 #### [facility] [address] [place] [address] Color (U) YELLOW Normal Yellow [facility] Comment on above: Performed By: #### 2 302621, 2162658, 6587462, 50848306, 4858567, 9513213 #### [facility] [address] [place] [address] Epithelial cells.squamous LM.HPF (Urine sed) [#/Area] 0-2 Normal 0-2 [facility] Comment on above: Performed By: #### 2 782707, 7284827, 6014353, 13610845, 6712570, 3585306 #### [facility] [address] [place] [address] Glucose Test strip (U) [Mass/Vol] Negative Normal Negative [facility] Comment on above: Performed By: #### 2 681284, 1596721, 9906868, 02234618, 7605442, 9521380 #### [facility] [address] [place] [address] Hemoglobin Ql (U) Negative Normal Negative [facility] Comment on above: Performed By: #### 2 768074, 6573684, 4207285, 77920192, 8421950, 3409146 #### [facility] [address] [place] [address] Ketones (U) [Mass/Vol] Negative Normal Negative [facility] Comment on above: Performed By: #### 2 970186, 4298564, 2639918, 54800188, 3731711, 9032854 #### [facility] [address] [place] [address] [place].plasma/Lith ium.RBC (Bld) [Mass ratio] 0-3 Normal 0-3 [facility] Comment on above: Performed By: #### 2 451842, 6900962, 1650622, 37623612, 1740481, 6150355 #### [facility] [address] [place] [address] Nitrite Ql (U) Negative Normal Negative [facility] Comment on above: Performed By: #### 2 244400, 9264066, 2164130, 61489035, 4831293, 3293735 #### [facility] [address] [place] [address] pH (U) 5.5 [pH] 5.0-9.0 [facility] Comment on above: Performed By: #### 2 774160, 0998086, 0802212, 96592609, 3429525, 1845439 #### [facility] [address] [place] [address] Protein (U) [Mass/Vol] Negative Normal Negative [facility] Comment on above: Performed By: #### 2 890640, 9267508, 1342807, 77331463, 6446255, 0947381 #### [facility] [address] [place] [address] Specific gravity (U) [Rel density] >=1.030 1.005-1.030 [facility] Comment on above: Performed By: #### 2 185747, 0169979, 3144284, 93312514, 5560338, 8322958 #### [facility] [address] [place] [address] UA Spec Desc [place] Normal [facility] Comment on above: Performed By: #### 2 310419, 0854531, 8864039, 11884799, 3590833, 0898615 #### [facility] [address] [place] [address] Urobilinogen Qn (U) 0.2 {Nayeli'U}/dL Normal 0.0-1.0 [facility] Comment on above: Performed By: #### 2 804019, 0773099, 0389874, 91383611, 9241097, 7167773 #### [facility] [address] [place] [address] WBC Auto Ql (U) Negative Normal Negative [facility] Comment on above: Performed By: #### 2 340568, 3420876, 6632145, 04729650, 9173419, 0136946 #### [facility] [address] [place] [address] WBC LM.HPF (Urine sed) [#/Area] 0-5 Normal 0-5 [facility] Comment on above: Performed By: #### 2 558279, 5213198, 9438393, 18052450, 6633775, 8572588 #### [facility] [address] [place] [address] Coding Summary.on 10-01-2019 Coding Summary. 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 DESCRIPTION 5521 Level 1 Imaging without [...] CphT Date Saved: 10/01/2019 06:34 am Normal [facility] XR Chest 2 Viewson 10-01- 9 XR Chest 2 Views Exam Date/Time: [...] Signed by: Akira Shrestha MD Transcribed by: DP Technologist: RH Normal [facility] BUNon 09-30-2019 Urea nitrogen [Mass/Vol] 15 mg/dL Normal 5-21 [facility] Comment on above: Performed By: #### 2 875442, 4661612, 0472066, 31602300, 6857176, 2129736 #### [facility] [address] [place] [address] CBC w/Indiceson 09-30-2019 Erythrocyte distribution width (RBC) [Ratio] 13.2 % Normal 10.9-14.2 [facility] Comment on above: Performed By: #### 2 152087, 5477810, 8854775, 40462770, 1987851, 6765189 #### [facility] [address] [place] [address] Hematocrit (Bld) [Volume fraction] 42.9 % Normal 37.7-49.0 [facility] Comment on above: Performed By: #### 2 849027, 2797456, 0966015, 96391164, 4842473, 9018040 #### [facility] [address] [place] [address] Hemoglobin (Bld) [Mass/Vol] 14.7 g/dL Normal 13.5-17.5 [facility] Comment on above: Performed By: #### 2 084624, 6300175, 6683841, 79707538, 6728547, 8151308 #### [facility] [address] [place] [address] MCH (RBC) [Entitic mass] 31.4 pg Normal 27.0-34.0 [facility] Comment on above: Performed By: #### 2 090797, 0002855, 7989440, 57991571, 4955046, 5548055 #### [facility] [address] [place] [address] MCHC (RBC) [Mass/Vol] 34.2 g/dL Normal 31.4-36.0 [facility] Comment on above: Performed By: #### 2 687299, 0144349, 8239512, 37072853, 5935676, 4188634 #### [facility] [address] [place] [address] MCV (RBC) [Entitic vol] 91.9 fL Normal 80.0-100.0 [facility] Comment on above: Performed By: #### 2 243680, 0055670, 4853957, 95147841, 3492343, 2207708 #### [facility] [address] [place] [address] Platelet mean volume (Bld) [Entitic vol] 9.0 fL Normal 6.4-10.8 [facility] Comment on above: Performed By: #### 2 617693, 4440592, 1385109, 43555572, 1809894, 2199071 #### [facility] [address] [place] [address] Platelets (Bld) [#/Vol] 230.0 E9/L Normal 150.0-500.0 [facility] Comment on above: Performed By: #### 2 593820, 6742099, 1877197, 02776275, 9054006, 9530046 #### [facility] [address] [place] [address] RBC (Bld) [#/Vol] 4.7 E12/L Normal 4.3-5.9 [facility] Comment on above: Performed By: #### 2 614808, 3174130, 9423151, 81639765, 5823118, 6074866 #### [facility] [address] [place] [address] WBC corrected for nucl RBC Auto (Bld) [#/Vol] 5.7 E9/L Normal 4.0-11.0 [facility] Comment on above: Performed By: #### 2 618257, 0803203, 9587056, 79778273, 1352137, 4965166 #### [facility] [address] [place] [address] Creatinineon 09-30-2019 Creatinine [Mass/Vol] 0.8 mg/dL Normal 0.5-1.3 [facility] Comment on above: Performed By: #### 2 319356, 8549926, 6872003, 06418490, 5046701, 7606574 #### [facility] [address] [place] [address] Glucoseon 09-30-2019 Glucose [Mass/Vol] 91 mg/dL Normal 55-199 [facility] Comment on above: Performed By: #### 2 210153, 0403448, 1857792, 76695076, 4698485, 0407114 #### [facility] [address] [place] [address] Lyteson 09-30-2019 Anion gap [Moles/Vol] 13 mmol/L Normal 6-16 [facility] Comment on above: Performed By: #### 2 197918, 4885623, 9576580, 93767104, 1279878, 6182267 #### [facility] [address] [place] [address] Chloride [Moles/Vol] 109 mmol/L Normal 101-111 [facility] Comment on above: Performed By: #### 2 772262, 6984357, 9102262, 71332024, 5200239, 5900147 #### [facility] [address] [place] [address] CO2 [Moles/Vol] 22 mmol/L Normal 21-31 [facility] Comment on above: Performed By: #### 2 916424, 9815534, 4055590, 64736049, 6418766, 6705199 #### [facility] [address] [place] [address] Potassium [Moles/Vol] 4.0 mmol/L Normal 3.5-5.3 [facility] Comment on above: Performed By: #### 2 430393, 6509819, 7310862, 57366285, 3043182, 9631536 #### [facility] [address] [place] [address] Sodium [Moles/Vol] 140 mmol/L Normal 135-145 [facility] Comment on above: Performed By: #### 2 948957, 7409525, 3810364, 18786434, 0110404, 4586752 #### [facility] [address] [place] [address] eGFRon 09-30-2019 GFR/1.73 sq M predicted among blacks MDRD (S/P/Bld) [Vol rate/Area] mL/min/{1.73_m2} Normal >=59 [facility] Comment on above: Order Comment: Order added by Discern Expert. Result Comment: eGFR is race adjusted. AA=. Performed By: #### 2 229233, 3790581, 8921166, 67019446, 2685212, 2414961 #### [facility] [address] [place] [address] GFR/1.73 sq M predicted among non-blacks MDRD (S/P/Bld) [Vol rate/Area] mL/min/{1.73_m2} Normal >=59 [facility] Comment on above: Order Comment: Order added by Discern Expert. Result Comment: Sailing Master amy kidney disease could be indicated at eGFR's of less than 60 mL/min/1.73m2. Kidney failure is indicated at less than 15 mL/min/1.73m2. Performed By: #### 2 211475, 8978865, 3246263, 87466226, 9418248, 3085812 #### [facility] [address] [place] [address] Vital Signs Date Time Vital Sign Value Performing Clinician Facility 01-30-2025 15:57-0400 Body mass index (BMI) [Ratio] 40.41 kg/m2 Debora Dunham MD Work Phone: [facility] 01-30-2025 15:57-0400 Body weight 117.03 kg Debora Dunham MD Work Phone: [facility] 11-20-2024 13:32-0500 Body height 170.2 cm Giovanny Tatum PA Work Phone: [facility] 11-20-2024 13:32-0500 Body mass index (BMI) [Ratio] 37.59 kg/m2 Giovanny Tatum PA Work Phone: [facility] 11-20-2024 13:32-0500 Body weight 108.86 kg Giovanny Tatum PA Work Phone: [facility] 07-15-2024 15:18-0400 Body mass index (BMI) [Ratio] 40.25 kg/m2 Debora Dunham MD Work Phone: [facility] 07-15-2024 15:18-0400 Body weight 116.57 kg Debora Dunham MD Work Phone: [facility] 02-23-2023 16:25-0400 Body height 170.18 cm Yasmine Joaquin Other [facility] Other 02-23-2023 16:25-0400 Body mass index (BMI) [Ratio] 40.72 kg/m2 Yasmine Joaquin Other [facility] Other 02-23-2023 16:25-0400 Body temperature 98.8 [degF] Yasmine Joaquin Other [facility] Other 02-23-2023 16:25-0400 Body weight 117.94 kg Yasmine Joaquin Other [facility] Other 02-23-2023 16:25-0400 Diastolic blood pressure 70 mm[Hg] Yasmine Joaquin Other [facility] Other 02-23-2023 16:25-0400 Respiratory rate 18 /min Yasmine Joaquin Other [facility] Other 02-23-2023 16:25-0400 SaO2% (BldA) [Mass fraction] 97 % Yasmine Joaquin Other [facility] Other 02-23-2023 16:25-0400 Systolic blood pressure 131 mm[Hg] Yasmine Joaquin Other [facility] Other 02-17-2023 10:10-0400 Body height 170.18 cm Emma Oropezamond Other [facility] Other 02-17-2023 10:10-0400 Body mass index (BMI) [Ratio] 40.72 kg/m2 Emma Oropezamond Other [facility] Other 02-17-2023 10:10-0400 Body temperature 97.7 [degF] Emma Oropezamond Other [facility] Other 02-17-2023 10:10-0400 Body weight 117.94 kg Emma Guerrero Other [facility] Other 02-17-2023 10:10-0400 Respiratory rate 18 /min Emma Oropezamond Other [facility] Other 02-17-2023 10:10-0400 SaO2% (BldA) [Mass fraction] 94 % Emma Oropezamond Other [facility] Other 02-15-2022 18:45-0400 Body height 170.18 cm Dimple Milligan Other [facility] Other 02-15-2022 18:45-0400 Body mass index (BMI) [Ratio] 39.46 kg/m2 Dimple Milligan Other [facility] Other 02-15-2022 18:45-0400 Body temperature 98.2 [degF] Dimple Milligan Other [facility] Other 02-15-2022 18:45-0400 Body weight 114.31 kg Dimple Milligan Other [facility] Other 02-15-2022 18:45-0400 Diastolic blood pressure 93 mm[Hg] Dimple Milligan Other [facility] Other 02-15-2022 18:45-0400 Respiratory rate 18 /min Dimple Milligan Other [facility] Other 02-15-2022 18:45-0400 SaO2% (BldA) [Mass fraction] 96 % Dimple Milligan Other [facility] Other 02-15-2022 18:45-0400 Systolic blood pressure 158 mm[Hg] Dimlpe Milligan Other [facility] Other Encounters Encounter Date Encounter Type Care Provider Facility Start: 04-18-2025 End: 04-18-2025 ambulatory [facility] Start: 01-30-2025 End: 01-30-2025 Office outpatient visit 15 minutes Debora Dunham MD Work Phone: [facility] Comment on above: 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 Heraclio Doshi DO Work Phone: [facility] Comment on above: Acute pain of left k nee (Primary Dx); Acute medial meniscus tear of left knee, initial encounter Start: 12-06-2024 End: 12-06-2024 ambulatory HERACLIO AMAYA Not Available Start: 11-27-2024 End: 11-27-2024 ambulatory GIOVANNY TATUM Not Available Start: 11-20-2024 End: 11-20-2024 Bamboo flowsheet Giovanny SALDIVAR Work Phone: [facility] Start: 11-20-2024 End: 11-20-2024 Bamboo flowsheet Giovanny Tatum PA Work Phone: [facility] Start: 11-20-2024 End: 11-20-2024 Office outpatient new 30 minutes Giovanny Tatum PA Work Phone: [facility] Comment on above: Acute pain of left k nee (Primary Dx); Internal derangement of left knee Start: 11-20-2024 End: 11-20-2024 ambulatory GIOVANNY TATUM Not Available Start: 10-07-2024 End: 10-07-2024 ambulatory [facility] Start: 07-30-2024 End: 07-30-2024 ambulatory LAMBERT MACK Not Available Start: 07-15-2024 End: 07-15-2024 Office outpatient visit 15 minutes Debora Dunham MD Work Phone: [facility] Comment on above: Severe persistent as thma with (acute) exacerbation (CMS/HCC) (Primary Dx) Start: 07-15-2024 End: 07-15-2024 ambulatory DEBORA DUNHAM Not Available Start: 07-15-2024 End: 07-15-2024 Bamboo flowsemily Dunham MD Work Phone: [facility] Start: 07-15-2024 End: 07-15-2024 Bamboo flowsemily Dunham MD Work Phone: [facility] Start: 07-09-2024 End: 07-09-2024 ambulatory [facility] Start: 04-30-2024 End: 05-01-2024 ambulatory [facility] Start: 03-28-2024 End: 03-28-2024 ambulatory DEBORA DUNHAM Not Available Start: 02-14-2024 End: 02-14-2024 ambulatory ANDRE Juan GENIE Not Available Start: 03-15-2023 End: 03-16-2023 ambulatory MARYURI JESSICA Facility: Start: 02-25-2023 End: 02-25-2023 ambulatory ANABELLE AGGARWAL . Facility:[facility] Start: 02-23-2023 End: 02-23-2023 ambulatory Yasmine Joaquin Other [facility] Other Start: 02-23-2023 Office outpatient vi sit 15 minutes Yasmine Joaquin [facility] Start: 02-17-2023 End: 02-17-2023 ambulatory Emma Guerrero Other [facility] Other Start: 02-17-2023 Office outpatient vi sit 15 minutes Emma Guerrero [facility] Start: 01-28-2023 Encounter for genera l adult medical examination without abnormal findings DR LAMBERT MACK . [facility] Start: 01-21-2023 End: 01-22-[address] LAMBERT MACK . Facility:[facility] Start: 01-21-2023 End: 01-22-2023 Encounter for general adult medical examination without abnormal findings DR LAMBERT MACK . Facility:[facility] Start: 12-26-2022 End: 12-27-2022 ambulatory MARYURI JESSICA Facility:[facility] Start: 10-01-2022 End: 10-02-[address] JUSTINO SERNA Facility:[facility] Start: 09-02-2022 End: 10-12-[address] JUSTINO SERNA Facility:[facility] Start: 07-27-2022 End: 07-28-[address] [facility] Facility:[facility] Start: 06-30-2022 End: 07-01-2022 ambulatory MARYURI [facility] Facility:[facility] Start: 06-30-2022 End: 07-01-2022 ambulatory BRANDAN HOWARD Facility:[facility] Start: 05-30-2022 End: 05-31-[address] LAMBERT MACK . Facility:[facility] Start: 04-18-2022 End: 04-19-[address] LAMBERT MACK . Facility:[facility] Start: 04-09-2022 End: 04-10-[address] LAMBERT MACK . Facility:[facility] Start: 03-24-2022 End: 03-25-[address] LAMBERT MACK . Facility:[facility] Start: 02-15-2022 End: 02-15-2022 ambulatory Dimple Milligan Other [facility] Other Start: 02-15-2022 Office outpatient vi sit 15 minutes Dimple Milligan [facility] Procedures Date Procedure Procedure Detail Performing Clinician Start: 11-20-2024 Radiologic examinati on knee 1/2 views Giovanny SALDIVAR Work Phone: Start: 01-21-2023 PSA screening MARYURI CHAMPION [facility] Comment on above: Performed By: #### P [facility] #### [facility] [address] [place] [address] Dr. Navneet Godwin Start: 08-03-2022 History of placement of stent for coronary artery disease History of coronary artery stent placement Jr. Glenda RICHARDSON Work Phone: Plan of Treatment Date Care Activity Detail Author Start: 08-04-2025 End: 08-04-2025 Patient encounter procedure 08/04/2025 4:00 PM EDT Office Visit [facility] [address] [place] [phone] Debora Dunham MD [address] [place] [address] [facility] Start: 01-30-2025 End: 01-30-2025 Patient encounter procedure [facility] Comment on above: Arrived Start: 12-31-2024 End: 12-31-2024 Patient encounter procedure 12/31/2024 11:30 AM EST Office Visit [facility] [address] [phone] Jr. Heraclio Doshi DO [address] [facility] [address] [place] [address] [facility] Start: 12-06-2024 End: 12-06-2024 Patient [facility] Comment on above: Acute pain of left k nee (Primary Dx); Acute medial meniscus tear of left knee, initial encounter Start: 11-20-2024 End: 11-20-2025 MR Knee - left WO contrast MR knee left wo IV contrast Imaging Routine Internal derangement of left knee Expected: 11/20/2024 (Approximate), Expires: 11/20/2025 [facility] Work Phone: Comment on above: Expected: 11/20/2024 (Approximate), Expires: 11/20/2025 Start: 11-20-2024 End: 11-20-2024 Patient encounter procedure 11/20/2024 1:30 PM EST Office Visit [facility] [address] [place] [phone] Giovanny Tatum PA [address] [place] [address] Acute pain of left knee (Primary Dx) [facility] Comment on above: Acute pain of left k nee (Primary Dx) Start: 07-15-2024 End: 07-15-2024 Patient encounter procedure 07/15/2024 3:20 PM EDT [facility] [address] [place] [phone] Debora Dunham MD [address] [place] [address] [facility] Comment on above: Arrived Start: 07-07-2024 Influenza vaccination Influenza Vacc ine (#1) [facility] Start: 1965 Screening for malignant neoplasm of colon [facility] Payers Date Payer Category Payer Private Health Insurance [employer] [id number] 2022 Unknown [employer] [id number] 2022-Present [address] [place] [address] [id number] 1965 Unknown [id number] 2.16.840.1.999756.3.579.2. 593 1965 Unknown [id number] 2.16.840.1.697182.3.579.2. 593 1963 Unknown [id number] 2.16.840.1.219738.3.579.2. 593 1963 Unknown [id number] 2.16.840.1.684009.3.579.2. 593 1963 Unknown [id number] 2.16.840.1.442099.3.579.2. 593 1963 Unknown [id number] 2.16.840.1.477601.3.579.2. 593 1963 Unknown [id number] 2.16.840.1.239322.3.579.2. 593 1963 Unknown [id number] 2.16.840.1.472768.3.579.2. 593 1963 Unknown [id number] 2.16.840.1.461775.3.579.2. 593 1963 Unknown [id number] 2.840.1.562019.3.579.2. 593 1963 Unknown [id number] 2.16.840.1.294057.3.579.2. 593 1963 Unknown [id number] 2.16.840.1.500547.3.579.2. 593 1963 Unknown [id number] 2.16840.1.972268.3.579.2. 593 1963 Unknown [id number] 2.16840.1.571824.3.579.2. 1259 1963 Unknown [id number] 2.16.840.1.402533.3.579.2. 1259 1963 Unknown [id number] 2.16.840.1.929235.3.579.2. 1259 1963 Unknown [id number] 2.16.840.1.389390.3.579.2. 1259 1963 Unknown [id number] 2.16.840.1.636533.3.579.2. 1259 1963 Unknown [id number] 2.16.840.1.050975.3.579.2. 1259 1963 Unknown [id number] 2.16.840.1.578599.3.579.2. 9 1965 Unknown [id number] 2.16.840.1.992078.3.579.2. 1259 1963 Unknown [id number] 2.16.840.1.999843.3.579.2. 1259 1959 Unknown [id number] 2.16.840.1.858609.19 Social History Date Type Detail Facility Start: 03-28-2024 End: 01-30-2025 Sex Assigned At [facility] [employer] Other Start: 02-14-2024 Tobacco smoking stat [facility] Ex-smoker [facility] Start: 12-11-1986 End: 10-27-2011 History of tobacco use Current smoker [facility] Start: 12-11-1986 End: 10-27-2011 History of tobacco use Cigarette Smoker [facility] Start: 02-14-2024 Tobacco use and exposure Former smokeless tobacco user [facility] End: 12-11-1994 History of tobacco use Snuff User [facility] Start: 07-15-2024 End: 01-30-2025 Alcoholic beverage intake Ex-drinker (finding) [facility] Start: 03-28-2024 End: 01-30-2025 History of Social function [facility] Start: 06-12-2023 Alcohol Comment Caffeine intak e: >4 cups per day [facility] Start: 1965 Sex assigned at Male [facility] Start: 06-05-2023 Gender identity Identifies as male gender (finding) [facility] Clinical Notes 02-15-2022 to 04-18-2025 Debora Dunham MD - 01/30/2025 4:00 PM EDTJr. Heraclio Doshi DO - 12/06/2024 8:15 AM JANNA Cohen - 11/20/2024 1:30 PM Jorge A Dunham MD - 07/15/2024 3:20 PM EDT Note Date & Type Note Facility 04-18-2025 Note Patient here today f or a 6 month. Patient states he been sick with the URI x1 week. Patient taking ATB. Patient state he still has VILLAVICENCIO, lightheaded. Review of Systems Cardiovascular: Positive for dyspnea on exertion. Neurological: Positive for light-headedness. [facility] 04-18-2025 Note SUBJECTIVE Reason for Visit: Paras Grigsby is a 59 y.o. year old male patient being seen for 6-month follow-up visit HPI: Paras Grigsby is a 59 y.o. year old male with significant medical history of hypertension, CAD s/p PCI, and hyperlipidemia. 04/18/2025 office visit: Patient was seen and evaluated in the office today. He denies chest pain or palpitations. He endorses exertional dyspnea, particularly with activities such as lifting, picking up objects, or shoveling. Symptoms have remained stable over time without progression. He reports recent lightheadedness that began in the context of an URI associated with fever and chills. He is currently being treated with antibiotics and states he is feeling much improved, with near resolution of fever and chills. He was instructed to notify the office if his lightheadedness gets worse, and asked to keep blood pressure log at home for next visit. 10/07/2024 office visit (Dr. Serna): Feels much better now that he is lost some weight. This was intentional by diet changes. No significant chest pain. No orthopnea, no paroxysmal tunnel dyspnea, no lower extremity edema. Update 07/26/2024: Patient is concerned regarding left-sided chest discomfort that comes and goes without specific precipitating or relieving factors. This cannot go for the whole day. It can last for few hours and resolved. It is not related to exertion. He is also frustrated as his shortness of breath has not improved despite being placed on medications for his emphysema. He categorically states that the chest discomfort does not feel like it felt before his PCI and stent placement in the past. He is not sure but thinks he probably has arthritis of the back. UPDATE 02/21/2024 Doing well; blood pressure readings from home are markedly improved in the 110s to 130 mmHg systolic range Has no new cardiovascular complaints Started on a new medication for asthma/emphysema Medical History[1] Surgical History[2] Problem List[3] family history includes Coronary artery disease in his father; Heart failure in his father. Social History[4] OBJECTIVE Visit Vitals Smoking Status Former Physical Exam Constitutional: General Appearance: well-developed, appears stated age. Level of Distress: no acute distress. Neck: Jugular Veins: normal jugular venous pressure. Lungs: Auscultation: no rales or rhonchi and normal breath sounds. Cardiovascular: Rate And Rhythm: regular Heart Sounds: normal S1 and s2; Systolic Murmur: not heard. Diastolic Murmur: not heard. Extremities: no edema Peripheral Pulses: Pulses: full and equal in all extremities except if noted. Abdomen: Inspection and Palpation: non distended or tender and soft. Musculoskeletal: Inspection: no joint tenderness or swelling. Neurologic: Gait: normal gait. Psychiatric: Mental Status: alert and normal affect. Skin: Inspection and Palpation: warm and dry. Allergies: Allergies[5] Outpatient Medications: Current Outpatient Medications Medication Instructions aspirin 81 mg chewable tablet CHEW AND SWALLOW 1 TABLET IN THE MORNING atorvastatin (LIPITOR) 80 mg, oral, Nightly carvedilol (Coreg) 25 mg tablet oral, 2 times daily with meals clopidogrel (PLAVIX) 75 mg, oral, Every morning diclofenac (VOLTAREN) 50 mg, oral, 2 times daily doxazosin (CARDURA) 4 mg, oral, Nightly dupilumab (Dupixent Pen) 300 mg/2 mL pen injector No dose, route, or frequency recorded. fenofibrate (TRICOR) 145 mg, oral, Daily FeroSuL 325 mg (65 mg iron) tablet 1 tablet, oral, 2 times daily RT furosemide (Lasix) 20 mg tablet TAKE ONE-HALF (1/2) TABLET DAILY furosemide (LASIX) 40 mg, oral, Daily lisinopril 20 mg, oral, Daily Recent Labs: No visits with results within 6 Month(s) from this visit. Latest known visit with results is: Admission on 08/03/2022, Discharged on 08/04/2022 Component Date Value Ventricular Rate 08/03/2022 53 Atrial Rate 08/03/2022 53 OK Interval 08/03/2022 164 QRS DURATION 08/03/2022 100 QT Interval 08/03/2022 424 QTC CALCULATION(BAZETT) 08/03/2022 397 P Trumann 08/03/2022 39 R-Trumann 08/03/2022 -7 T Wave Trumann 08/03/2022 51 Auto WBC 08/03/2022 4.48 RBC 08/03/2022 4.48 Hemoglobin 08/03/2022 13.3 Hematocrit 08/03/2022 39.7 MCV 08/03/2022 88.6 MCH 08/03/2022 29.7 MCHC 08/03/2022 33.5 RDW 08/03/2022 13.3 Platelets 08/03/2022 259 Sodium 08/03/2022 139 Potassium 08/03/2022 4.6 Chloride 08/03/2022 109 (H) CO2 08/03/2022 22 BUN 08/03/2022 18 Creatinine 08/03/2022 1.13 Glucose 08/03/2022 103 (H) Calcium 08/03/2022 9.5 Anion Gap 08/03/2022 8 eGFR 08/03/2022 71.2 BUN/Creatinine Ratio 08/03/2022 15.93 SARS-CoV-2 Ag POC 08/03/2022 Negative Ventricular Rate 08/03/2022 50 Atrial Rate 08/03/2022 50 OK Interval 08/03/2022 170 QRS DURATION 08/03/2022 104 QT Interval 08/03/2022 436 QTC CALCULATION(BAZETT) 08/03/2022 397 P Trumann 08/03/2022 50 R-Trumann 08/03/2022 4 T (more content not included)... [facility] 01-30-2025 History of Present illness Narrative Paras Grigsby returns to the office today for a follow-up visit for severe persistent asthma. Asthma control test in the office today is 20. He still has been having dyspnea on exertion in spite of use of Dupixent. He feels that this has not been very helpful for him. He feels he can walk. We walked 7 minutes in the hallway and he did well with this. He has a normal echo. He smoked from age 23 until 38 about one pack per day. Pre rescue bronchodilator FEV1 was 57% in 2022. EXAM The patient appears comfortable in the office today. Lungs are clear to auscultation bilaterally. The oral mucosa is pink and healthy without any lesions or ulcers. The palate elevates in the midline. The nasal mucosa is pink and healthy. There is no epistaxis mucopus or nasal polyposis noted. The nasal septum is approximately in the midline. The skin is clear of any lesions, excoriations, or erythema. IMPRESSION: Dyspnea on exertion - defer Ohtuvarye per patient preference. Stop Dupixent per patient preference. I cautioned the patient about the potential for severe exacerbation while off medication but he would like to stop all his medications and see how he does and he is aware of this risk. Follow-up in 6 months or sooner should problems arise. documented in this encounter [facility] 12-06-2024 History of Present illness Narrative Images from the original note were not included. HISTORY OF PRESENT ILLNESS: EST PT Paras Grigsby is an 59 y.o. @ male. (EST PT-PREVIOUSLY SAW ROSENDO TATUM ON 11/20/24) RECHECK LT KNEE PAIN ~2 MONTHS. PT FELT A POP IN KNEE- PT STATES PAIN IS IMPROVING. HERE FOR MRI RESULTS, DONE ON 11/27/24 AT [facility]. PT IS ON PLAVIX XRAY LT KNEE 11/20/24 [facility] MRI LT KNEE 11/27/24 [facility] ([facility]) NO CORTISONE INJ NO MDP/PREDNISONE HX LT KNEE SCOPE (PER DR DOSHI YRS AGO) PAIN MEDIAL KNEE, INTERMITTENT- WORSE WITH PROLONGED STANDING/WB, AND SIT TO STAND-SWELLING HAS RESOLVED- GOOD ROM- +STIFFNESS WITH PROLONG SITTING- AMBULATES WITH LIMP, THIS HAS IMPROVED SOME- +TYLENOL PRN- DENIES N/T- +CRACKING, POPPING, GRINDING. ALLERGIES: No Known Allergies HOME MEDICATIONS: Current Outpatient Medications Medication Instructions aspirin 81 MG chewable tablet CHEW AND SWALLOW 1 TABLET IN THE MORNING atorvastatin (LIPITOR) 80 mg, Nightly carvedilol (Coreg) 25 MG tablet 1 tablet, 2 times daily clopidogrel (PLAVIX) 75 mg, Every morning diclofenac (VOLTAREN) 75 mg, 2 times daily doxazosin (Cardura) 4 MG tablet 1 tablet, Daily Dupixent 300 mg, Subcutaneous, Every 14 days fenofibrate (TRICOR) 145 mg, Daily RT ferrous sulfate 325 mg, Daily with breakfast furosemide (Lasix) 40 MG tablet hydrOXYzine HCl (Atarax) 50 MG tablet Take by mouth. lisinopril 20 MG tablet Daily PHYSICAL EXAM: Knee Musculoskeletal Exam Gait Antalgic: left Limp: left Inspection Leg length disparity: no discrepancy Left Erythema: none Effusion: mild Edema: none Ecchymosis: none Deformity: none Alignment: normal Palpation Left Increased warmth: none Masses: none Tenderness: none Range of Motion Left Left knee range of motion is normal and full. Active extension: 0 Passive extension: 0 Active flexion: 120 Passive flexion: 120 Range of motion additional comments: minimal PAIN ON TERMINAL FLEXION AND EXTENSION Strength Left Extension: 5/5. Extension is not affected by pain. Flexion: 5/5. Flexion is not affected by pain. Instability Left Instability signs: none - stable Varus stress grade: normal Valgus stress grade: normal Anterior drawer: normal Medial Jojo test: positive Neurovascular Left Left knee neurovascular exam is normal. Pulses - PT: normal Posterior tibial: 2+ Capillary refill: warm and well-perfused Special Signs Left Left knee special signs are normal. Patellar apprehension: none General Constitutional: appears stated age Labored breathing: no Psychiatric: normal mood and affect Neurological: alert Skin: intact Lymphadenopathy: none Vitals: There is no height or weight on file to calculate BMI. Tobacco Use: Medium Risk (12/06/2024) Patient History Smoking Tobacco Use: Former Smokeless Tobacco Use: Former Passive Exposure: Not on file Alcohol Use: Not on file IMAGING: Procedures No orders of the defined types were placed in this encounter. ASSESSMENT: ICD-10-CM 1. Acute pain of left knee M25.562 2. Acute medial meniscus tear of left knee, initial encounter S83.242A PLAN: We've discussed his case with him at length including symptoms, physical exam, MRI, and x-rays. MRI is consistent with a bone bruise and medial meniscus tear. Patient is nearly completely asymptomatic today on exam and symptoms. We have discussed his restrictions in his home exercise program. We'll see him back in 1 month. If his symptoms persist or worsen, we'll recommend a diagnostic and operative arthroscopy for medial meniscus tear, but right now he is refusing surgical intervention because he's progressing very well. He understands the risks and benefits of said treatment. documented in this encounter [facility] 11-20-2024 History of Present illness Narrative Images from the original note were not included. NAME: Paras Grigsby : 1965 HISTORY OF PRESENT ILLNESS: NEW PT Paras Grigsby is an 59 y.o. @ male. NEW PT WITH LT KNEE PAIN ~2MO- PT FELT A POP IN KNEE- PT STATES SYMPTOMS ARE GRADUALLY WORSENING XRAY LT KNEE TODAY EPIC 11/20/24 NO MRI NO CORTISONE INJ NO MDP/PREDNISONE HX LT KNEE SCOPE (PER DR DOSHI YRS AGO) PAIN MEDIAL KNEE- SOME SWELLING- CONSTANT ACHINESS- INCREASE PAIN WITH ACTIVITY- GOOD ROM- +STIFFNESS WITH PROLONG SITTING- AMBULATES WITH LIMP- SOME WEAKNESS- +TYLENOL PRN History of Present Illness The patient presents for left knee pain. He has been experiencing persistent left knee pain for the past 2 months, which he attributes to an incident where he felt a sharp pain while operating his tractor. The pain is described as sharp and is particularly pronounced on the medial side of the knee. He also reports occasional catching sensations in the same area. The pain is a daily occurrence and intensifies with weight-bearing activities. PAST MEDICAL HISTORY: Past Medical History: Diagnosis Date Asthma (CMS/HCC) 2021 COPD (chronic obstructive pulmonary disease) ([facility]/HCC) 2021 History of medical problems 2012 precancerous throat polyps Hyperlipidemia (CMS/HCC) Hypertension ([facility]) PAST SURGICAL HISTORY: Past Surgical History: Procedure Laterality Date CARDIAC SURGERY 07/2022 Heart stent placed KNEE SURGERY OTHER SURGICAL HISTORY 07/16/2013 DL with Excision of Left Pharyngeal Epiglottic mucosa ROTATOR CUFF REPAIR repair of bilat. torn rotator cuffs TONSILLECTOMY SOCIAL HISTORY: Social History Occupational History Not on file Tobacco Use Smoking status: Former Current packs/day: 0.00 Types: Cigarettes Start date: 12/11/1986 Quit date: 10/27/2011 Years since quittin.0 Smokeless tobacco: Former Types: Snuff Quit date: 12/11/1994 Vaping Use Vaping status: Never Used Substance and Sexual Activity Alcohol use: Not Currently Comment: Caffeine intake: >4 cups per day Drug use: Never Sexual activity: Yes Partners: Female control/protection: Male Sterilization ALLERGIES: No Known Allergies HOME MEDICATIONS: Current Outpatient Medications Medication Instructions aspirin 81 MG chewable tablet CHEW AND SWALLOW 1 TABLET IN THE MORNING atorvastatin (LIPITOR) 80 mg, Oral, Nightly carvedilol (Coreg) 25 MG tablet 1 tablet, Oral, 2 times daily clopidogrel (PLAVIX) 75 mg, Oral, Every morning diclofenac (VOLTAREN) 75 mg, Oral, 2 times daily, Do not crush, chew, or split. doxazosin (Cardura) 4 MG tablet 1 tablet, Oral, Daily Dupixent 300 mg, Subcutaneous, Every 14 days fenofibrate (TRICOR) 145 mg, Oral, Daily RT ferrous sulfate 325 mg, Oral, Daily with breakfast furosemide (LASIX) 40 mg, Oral, Daily hydrOXYzine HCl (Atarax) 50 MG tablet Oral lisinopril 20 MG tablet Oral, Daily REVIEW OF SYSTEMS: Review of Systems Vitals: Body mass index is 37.59 kg/m . Tobacco Use: Medium Risk (11/20/2024) Patient History Smoking Tobacco Use: Former Smokeless Tobacco Use: Former Passive Exposure: Not on file Alcohol Use: Not on file PHYSICAL EXAM: Knee Musculoskeletal Exam Gait Antalgic: left Limp: left Inspection Leg length disparity: no discrepancy Left Erythema: none Effusion: mild Edema: none Ecchymosis: none Deformity: none Alignment: normal Palpation Left Increased warmth: none Masses: none Tenderness: present Medial joint line: moderate Range of Motion Left Left knee range of motion is normal and full. Range of motion additional comments: + PAIN ON TERMINAL FLEXION AND EXTENSION Strength Left Extension: 5/5. Extension is affected by pain. Flexion: 5/5. Flexion is affected by pain. Instability Left Instability signs: none - stable Varus stress grade: normal Valgus stress grade: normal Anterior drawer: normal Medial Jojo test: positive Neurovascular Left Left knee neurovascular exam is normal. Pulses - PT: normal Posterior tibial: 2+ Capillary refill: warm and well-perfused Special Signs Left Left knee special signs are normal. Patellar apprehension: none General Constitutional: appears stated age Labored breathing: no Psychiatric: normal mood and affect Neurological: alert Skin: intact Lymphadenopathy: none Physical Exam IMAGING: XR knee 1 or 2 views left Imaging Result: AP and Lateral left knee: No acute fracture or dislocation Small metalic foreign body in prepatellar soft tissues best seen on lateral view Joint space preservation to medial and lateral weight bearing surface. Mild patella femoral changes for arthritis Impression: no acute bony process left knee with age indeterminate metallic foreign body. Results Procedures Orders Placed This Encounter Procedures XR knee 1 or 2 views left Order Specific Question: Reason for exam: Answer: PAIN ASSESSMENT: ICD-10-CM 1. Acute pain of left knee M25.562 XR knee 1 or 2 views left 2. Internal derangement of left knee M23.92 F/U Dr. Doshi s/p MRI to discuss need for possible: Consider knee arthroscopy for partial medial meniscectomy Surgical and non surgical tx options discussed with conservative measures reviewed. Recommend ICE/ ELEVATION, continued activity modification in interim. Pt would consider surgical intervention to possibly improve symptoms. Assessment & Plan 1. Left knee pain. The patient has been experiencing pain for 2 months after feeling a sharp pain in his knee while on his tractor. Symptoms are present daily, worse with weightbearing, sharp, and include occasional catching in the medial knee. An MRI is recommended for further evaluation of a likely medial meniscus tear. He would consider surgical intervention as symptoms are not improving and have worsened since they started. Questions answered in laymen terms at the bedside. The diagnosis, home exercise plan and any ongoing restrictions/ recommendations reviewed. If unable to be reached in office, I recommend evaluation at nearest Emergency Room if any symptoms worsened or new symptoms develop for requiring urgent evaluation. documented in this encounter [facility] 10-07-[address] [facility] Cardiology Clinic Note Chief Complaint: Patient here for 3 mo follow up hypertension, CAD s/p PCI, and hyperlipidemia. VILLAVICENCIO continues to improve. Has chest pain every now and then . HPI: Paras Grigsby is a 58 y.o. [...] Started on a new medication for asthma/emphysema Update 07/26/2024: Patient is concerned regarding left-sided chest discomfort that comes and goes without specific precipitating or relieving factors. This cannot go for the whole day. It can last for few hours and resolved. It is not related to exertion. He is also frustrated as his shortness of breath has not improved despite being placed on medications for his emphysema. He categorically states that the chest discomfort does not feel like it felt before his PCI and stent placement in the past. He is not sure but thinks he probably has arthritis of the back. Update 10/07/2024: Feels much better now that he is lost some weight. This was intentional by diet changes. No significant chest pain. No orthopnea, no paroxysmal tunnel dyspnea, no lower extremity edema. Cardiology ROS: Review of Systems Cardiovascular: Positive for chest pain ( now and then ) and dyspnea on exertion (improving). Respiratory: Positive for cough and wheezing. Musculoskeletal: Positive for arthritis, back pain, joint pain and myalgias. All other systems reviewed and are negative. Past Medical History He has a past medical history of COPD (chronic obstructive pulmonary disease) ([facility]), Coronary artery disease, Hyperlipidemia, Hypertension, and Sleep apnea. Surgical History He has a past surgical history that includes Cardiac catheterization (Left, 05/15/2014) and Cardiac catheterization. Social History He reports that he quit smoking about 12 years ago. His smoking use included cigarettes. He started smoking about 42 years ago. He has a 30 pack-year smoking history. He quit smokeless tobacco [...] 20 mg tablet, TAKE ONE-HALF (1/2) TABLET DAILY (Patient not taking: Reported on 07/09/2024), Disp: 45 tablet, Rfl: 3 furosemide (Lasix) 40 mg tablet, Take 1 tablet (40 mg) by mouth in the morning., Disp: 90 tablet, Rfl: 3 lisinopril 20 mg tablet, Take 1 tablet (20 mg) by mouth in the morning., Disp: 90 tablet, Rfl: 3 VITAL SIGNS BP 123/73 (BP Location: Left arm, Patient Position: Sitting) Pulse 55 Ht 1.702 m (5' 7 ) Wt 113 kg (249 lb) SpO2 96% BMI 39.00 kg/m??? Physical Examination: GENERAL: alert and oriented [...] Sodium 143, potassium 3.7, chloride 109, BUN 1 (more content not included)... [facility] 07-15-2024 History of Present illness Narrative Paras Grigsby returns to the office today For follow-up assessment for severe persistent asthma. Asthma control test today is 17. He got a recent URI starting about 10 days ago. He feels the Dupixent has been very helpful for his severe persistent asthma and he seems like he has less dyspnea on exertion since he has been on this. He has no side effects from this medication. He has not been using any inhaled corticosteroid. EXAM The patient appears comfortable in the office today. Lungs are clear to auscultation bilaterally. The oral mucosa is pink and healthy without any lesions or ulcers. The palate elevates in the midline. The nasal mucosa is pink and healthy. There is no epistaxis mucopus or nasal polyposis noted. The nasal septum is approximately in the midline. The skin is clear of any lesions, excoriations, or erythema. IMPRESSION: severe persistent asthma - we will continue his Dupixent as he has been having an excellent response to this. We agreed he will try and exercise more with regular walking and follow-up is arranged in 6 months sooner should problems arise. documented in this encounter [facility] 07-09-[address] [facility] Cardiology Clinic Note Chief Complaint: Patient [...] Started on a new medication for asthma/emphysema Update 07/26/2024: Patient is concerned regarding left-sided chest discomfort that comes and goes without specific precipitating or relieving factors. This cannot go for the whole day. It can last for few hours and resolved. It is not related to exertion. He is also frustrated as his shortness of breath has not improved despite being placed on medications for his emphysema. He categorically states that the chest discomfort does not feel like it felt before his PCI and stent placement in the past. He is not sure but thinks he probably has arthritis of the back. Cardiology ROS: Review of Systems Cardiovascular: Positive for dyspnea on exertion (improving). Respiratory: Positive for cough and wheezing. Musculoskeletal: Positive for arthritis, back pain, joint pain and myalgias. Neurological: Positive for light-headedness. All other systems reviewed and are negative. Past Medical History He has a past medical history of COPD (chronic obstructive pulmonary disease) ([facility]), Coronary artery disease, Hyperlipidemia, Hypertension, [...] at bedtime., Disp: , Rfl: furosemide (Lasix) 40 mg tablet, Take 1 tablet (40 mg) by mouth in the morning., Disp: 90 tablet, Rfl: 3 lisinopril 20 mg tablet, Take 1 tablet (20 mg) by mouth in the morning., Disp: 90 tablet, Rfl: 3 furosemide (Lasix) 20 mg tablet, TAKE ONE-HALF (1/2) TABLET DAILY (Patient not taking: Reported on 07/09/2024), Disp: 45 tablet, Rfl: 3 Last Recorded Vitals BP 114/64 (BP Location: Left arm, Patient Position: Sitting) Pulse 67 Ht 1.702 m (5' 7 ) Wt 114 kg (252 lb) SpO2 97% BMI 39.47 kg/m??? Physical Examination: GENERAL: alert and oriented [...] 45, triglyceride 69, LDL 37.2 Labs from 12/08 (more content not included)... [facility] 04-30-2024 Note Cardiovascular Medic ine [facility] SUBJECTIVE Chief Complaint Patient presents with Shortness of Breath Coronary Artery Disease aPras Grigsby is a 58 y.o. male here [...] Problem List Diagnosis Chest pain CAD in [place] artery Essential hypertension COPD (chronic obstructive pulmonary disease) ([facility]) S/P drug eluting coronary stent placement Hyperplastic polyp of intestine Dyspnea Shortness of breath Severe persistent asthma with acute exacerbation Past Medical History: Diagnosis Date COPD (chronic obstructive pulmonary disease) ([facility]) Coronary artery disease Hyperlipidemia Hypertension [...] Final Atrial Rate 08/03/2022 53 BPM Final OK Interval 08/03/2022 164 ms Final QRS DURATION 08/03/2022 100 ms Final QT Interval 08/03/2022 424 ms Final QTC CALCULATION(BAZETT) 08/03/2022 397 ms Final P Trumann 08/03/2022 39 degrees Final R-Trumann 08/03/2022 -7 degrees Final T Wave Trumann 08/03/2022 51 degrees Final Auto WBC 08/03/2022 4.48 4.00 - 10.60 10*3/uL Tigist (more content not included)... [facility] 04-30-2024 Note Patient here per Dr. Mack for abnormal stress test. Says PCP ordered testing for SOB. He does see pulmonology in [place]. He states the only recent chest pain was a few days ago when he was washing a camper. Dr. Mack stopped chlorthalidone after recent lab results. Review of Systems Cardiovascular: Positive for chest pain (1 episode a few days ago) and dyspnea on exertion. Musculoskeletal: Positive for arthritis, back pain, joint pain and myalgias. Neurological: Positive for light-headedness. All other systems reviewed and are negative. [facility] 02-23-2023 Evaluation note Encounter Date Diagnosis Assessment Notes Feb, Urticaria (ICD-10 - L50.9) Discussed diagnosis with patient. We will send in Rx of prednisone taper to use as directed. Continue fkey-qkr-ebvvyig Benadryl/Zyrtec or Claritin. Advised patient to avoid hot showers/baths encouraged use of cool compresses. Patient needs to follow-up with PCP if this rash does not improve with treatment. Immediate evaluation in ER for signs and symptoms as discussed. Patient verbalizes understanding and is agreeable to treatment plan. [facility] Other 04-14-2023 Evaluation note* Encounter Date Diagnosis [...] concerns Feb, Acute cough (ICD-10 - R05.1) [facility] Other 04-12-2022 Evaluation note* Encounter Date Diagnosis Assessment Notes Treatment Notes Treatment Clinical Notes Feb, Infected tooth (ICD-10 - K04.7) Take medications as directed.Highly encourage patient to contact dentist TIARA for further treatment of infection. Do not take OTC medications like ibuprofen with prescriptions Rebls Other Evaluation note* Diagnosis Severe persistent asthma with (acute) exacerbation (CMS/HCC)- Primary documented in this encounter [facility] HealthcareEvaluation note* Diagnosis Acute pain of left knee- Primary Internal derangement of left knee documented in this encounter [facility]* Diagnosis Acute pain of left knee- Primary Acute medial meniscus tear of left knee, initial encounter documented in this encounter [facility] note* Diagnosis Severe persistent asthma without complication (CMS/HCC)- Primary documented in this encounter [facility] HealthcareHistory general Narrative - Reported* Type Description Date Medical History Benign essential HTN Surgical History knee surgery Surgical History shoulder surgery Surgical History tonsillectomy and adenoidectomy Surgical History wisdom teeth Surgical History vasectomy Hospitalization History see above Rebls Other History general Narrative - Reported* Type Description Date Medical History Benign essential HTN Medical History High cholesterol Surgical History knee surgery Surgical History shoulder surgery Surgical History tonsillectomy and adenoidectomy Surgical History wisdom teeth Surgical History vasectomy Surgical History stent 2021 Hospitalization History see above Rebls Other Summary Purpose Family History No Family [...] All Problems COPD exacerbation / SNOMED CT 509221216 / Confirmed BMI 38.0-38.9,adult / SNOMED CT 327396310 / Confirmed Diabetes / SNOMED CT 507525593 / Confirmed new diagnosis on no meds yet Hypertension / SNOMED CT 0749392260 / Confirmed Hypertensive retinopathy / SNOMED CT 17231602 / Confirmed Umbilical hernia / SNOMED CT 3373886809 / Confirmed Resolved: Kidney stone / SNOMED CT 107620800 Physical Examination Vital Signs 10/07/2019 14:40 EST [...] section and content) DATE CREATED AUTHOR 02/03/2020 [facility] DATE CREATED AUTHOR AUTHOR'S ORGANIZ ATION 03/19/2023 [facility] DATE CREATED AUTHOR AUTHOR'S ORGANIZ ATION 02/01/2025 [facility] EPIC DATE CREATED AUTHOR AUTHOR'S ORGANIZ ATION 04/21/2025 [facility] REASON FOR VISIT (unrecogniz ed section and content) Reason Comments Follow-up No surgeries; no hos pital stays. Reason Comments Pain Reason Comments Follow-up Care Teams (unrecognized sec tion and content) Director Of Testing Relationship Specialty Start Date End Date Lambert Mack MD [address] [place] [address] PCP - General 06/05/23 Director Of Testing Relationship Specialty Start Date End Date Lambert Mack MD [address] [place] [address] PCP - General 06/05/23 Director Of Testing Relationship Specialty Start Date End Date Lambert Mack MD [address] [place] [facility] [place] [address] PCP - General 06/05/23 Director Of Testing Relationship Specialty Start Date End Date Lambert Mack MD [address] [place] [facility] [place] [address] PCP - General 06/05/23 Director Of Testing Relationship Specialty Start Date End Date Lambert Mack MD [address] [place] [facility] [place] [address] PCP - General 06/05/23 Director Of Testing Relationship Specialty Start Date End Date Lambert Mack MD [address] [place] [facility] [place] [address] PCP - General 06/05/23 FOR RECORDS PERTAINING TO PATIENTS WHO ARE [...] BE BASED ON THE PRIMARY CLINICAL RECORDS. [facility] [employer] [facility]. provides no warranty or guarantee of the accuracy or completeness of information in this document.
[2025-04-24 08:42] LABS: Basophils Absolute Auto 0.1 10^3/uL (0.0-0.1); Eosinophils Absolute Auto 0.2 10^3/uL (0.0-0.7); Eosinophils Percent Auto 2.8 % (0.9-7.0); Hemoglobin 11.9 g/dL (14.0-18.0); Immature Granulocytes Abs Auto 0.13 10^3/uL (0.00-0.03); Immature Granulocytes Pct Auto 1.8 % (0.0-0.5); Lymphocytes Absolute Auto 2.5 10^3/uL (1.2-3.8); Lymphocytes Percent Auto 34.6 % (20.5-60.0); Mean Corpuscular Hemoglobin 30.8 pg (25.9-34.0); Mean Corpuscular Volume 90.7 fL (80.0-94.0); Mean Platelet Volume 10.1 fL (9.5-13.5); Monocytes Absolute Auto 0.6 10^3/uL (0.3-0.8); Monocytes Percent Auto 8.3 % (1.7-12.0); Neutrophils Absolute Auto 3.7 10^3/uL (1.4-6.5); Neutrophils Percent Auto 51.5 % (43.0-75.0); Platelet Count 364 10^3/uL (150-450); Red Blood Count 3.86 10^6/uL (4.70-6.10); Red Cell Distribution Width 13.2 % (11.0-15.0); White Blood Count 7.1 10^3/uL (4.0-11.0)
[2025-04-24 09:29] LABS: Alanine Aminotransferase 25 U/L (16-63); Albumin Level 3.3 g/dL (3.4-5.0); Alkaline Phosphatase 63 U/L (46-116); Anion Gap 13.5; Aspartate Amino Transferase 34 U/L (15-37); BUN Creatinine Ratio 20.2; Bilirubin Total 0.3 mg/dL (0.2-1.0); Calcium 8.7 mg/dL (8.5-10.1); Carbon Dioxide 24.8 mmol/L (21.0-32.0); Chloride 107 mmol/L (98-107); Chol HDL Ratio 2.3; Cholesterol 84 mg/dL (<=200); Estimated GFR (African America >60 (>=60 mL/min/1.73m^2); Estimated GFR (Non-African Ame >60 (>=60 mL/min/1.73m^2); Globulin 3.3 g/dL; Glucose 105 mg/dL (74-106); HDL Cholesterol 36 mg/dL (40-60); Potassium 4.3 mmol/L (3.5-5.1); Sodium 141 mmol/L (136-145); Total Protein 6.6 g/dL (6.4-8.2); Triglycerides 206 mg/dL (<=150); VLDL CHOLESTEROL 41.2 mg/dL
== END 2025-04-24 08:21 | disposition home or self-care (01) ==
LOC: LAB 08:21
PROVIDERS: PCP Family Medicine
DX: I25.10 Atherosclerotic heart disease of native coronary artery without angina pectoris (principal); I10 Essential (primary) hypertension; E78.2 Mixed hyperlipidemia
CPT/HCPCS: 36415; 80053; 80061; 85025

== ENCOUNTER 2025-05-15 15:51 | Outpatient (OUT) | payer OTHER, SELFPAY ==
[2025-05-15 16:39] LABS: Free T3 1.31 pg/mL (2.18-3.98); Thyroid Stimulating Hormone 1.654 uIU/mL (0.358-3.740)
[2025-05-15 16:52] LABS: Prostate Specific Antigen Dx 1.21 ng/mL (<=4.00)
== END 2025-05-15 15:52 | disposition home or self-care (01) ==
LOC: LAB 15:52
PROVIDERS: PCP Family Medicine; Visit Provider Family Medicine
DX: K52.9 Noninfective gastroenteritis and colitis, unspecified (principal); E03.9 Hypothyroidism, unspecified
CPT/HCPCS: 36415; 84153; 84436; 84443; 84481

== ENCOUNTER 2025-05-16 16:22 | Outpatient (REF) | payer OTHER, SELFPAY ==
[2025-05-16 18:38] LABS: C. Difficile PCR POSITIVE
== END 2025-05-16 16:23 | disposition home or self-care (01) ==
LOC: LAB 16:22
PROVIDERS: PCP Family Medicine; Visit Provider Family Medicine
DX: K52.9 Noninfective gastroenteritis and colitis, unspecified (principal)
CPT/HCPCS: 87045; 87046; 87427; 87493

== ENCOUNTER 2025-06-10 15:59 | Outpatient (OUT) | payer OTHER, SELFPAY ==
--- OUTSIDE RECORDS SUMMARY | 2025-05-22 09:54 | XMS_ITS ---
Author Organization [facility] in [place] Address [address] [place] [address] Care Team Providers Care Production Posting Clerk Name Role Phone Joe Jose Primary Care Provider REASON FOR VISIT bp check Vital Signs Height 67 in 05/22/2025 Encounters Encounter Location Date Provider Diagnosis [facility] [address] [facility] [place] [address] 05/22/2025 Joe Jose Plan Of Treatment No Information Progress Notes * Sajan GRIGSBY SDOB: [birth year] (59 yo M)Acc No.[id number]:05/22/2025 Patient: Peace MALIN Sajan Yessica :1965 A ge:59 Y S ex:Male Address:[address] , [place] [address] Subjective: * Chief Complaints: * B p check * Medical History: * Surgical History: * Hospitalization/Major Diagno stic Procedure: * Medications: Objective: * Vitals: H t: 67 in, Ht-cm: 170.18 cm. * Physical Examination: Assessment: Plan: * Treatment: * Procedure Codes: * true * Date: Generated for Jose Eduardo camacho/Fabenitag/eTransmitting on: 0 06/10/2025 04:03 PM EDT
--- OUTSIDE RECORDS SUMMARY | 2025-05-22 10:00 | XMS_ITS ---
Author Organization The [facility] in [place] Address [address] [place] [address] Care Team Providers Care Industrial Painter Name Role Phone Jeo Jose Primary Care Provider [phone] REASON FOR VISIT BP CHECK Vital Signs Height 67 in 05/22/2025 Blood pressure systolic 118 mm Hg 05/22/20 25 Blood pressure diastolic 62 mm Hg 025 Encounters Encounter Location Date Provider Diagnosis [facility] [address] [place] [address] 05/22/2025 Joe Jose Hypertension I10 Assessments Encounter Date Diagnosis (ICD Code) Assessment Notes Treatment Notes Treatment Clinical Notes Section Notes 05/22/2025 Hypertension (ICD-10 - I10) Plan Of Treatment No Information Progress Notes * Sajan GRIGSBY SDOB: [birth year] (59 yo M)Acc No.[id number]:05/22/2025 BP Check Patient: Sajan MARTIN Provider: Cornelio Jose (JHOAN)MD :1965 A ge:59 Y S ex:Male Date:05/22/2025 Address:[address] [place], [place] [address], [id number] Check In:01:48 PM ESTCheck O ut:01:52 PM EST Subjective: * Chief Complaints: * 1 . BP CHECK. * HPI: G eneral: presents to the office for a bp check. * Active Problem List H52.03 Hypermetropia, bilat eral Modified On:02/26/2023 Status:confirmed H52.4 Presbyopia Modified On:02/26/2023 Status:confirmed H53.131 Sudden visual loss, right eye Modified On:02/26/2023 Status:confirmed J43.2 Centrilobular emphys eric Modified On:03/22/2023 Status:confirmed J45.40 Moderate persistent asthma, uncomplicated Modified On:03/22/2023 Status:confirmed Z79.51 bed bug exterminator (current) use of inhaled steroids Modified On:03/22/2023 Status:confirmed R07.9 Chest pain Modified On:02/26/2023 Status:confirmed I10 Hypertension Modified On:11/29/2023 Status:confirmed E29.1 Hypogonadism male Modified On:02/26/2023 Status:confirmed I25.10 Coronary artery dise ase Modified On:03/22/2023 Status:confirmed R06.00 Dyspnea Modified On:02/26/2023 Status:confirmed G47.30 Sleep apnea Modified On:02/26/2023 Status:confirmed G47.33 Obstructive sleep ap aniyah Modified On:03/22/2023 Status:confirmed R53.81 Malaise Modified On:02/26/2023 Status:confirmed 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 Modified On:02/26/2023 Status:confirmed E78.1 Hypertriglyceridemia Modified On:02/26/2023 Status:confirmed M25.50 Arthralgia Modified On:02/26/2023 Status:confirmed Z00.00 Well adult Modified On:02/26/2023 Status:confirmed K58.9 Irritable bowel synd evelin Modified On:02/26/2023 Status:confirmed R55 Near syncope Modified On:02/26/2023 Status:confirmed E66.3 Over weight Modified On:02/26/2023 Status:confirmed 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 Modified On:02/26/2023 Status:confirmed R76.8 Elevated IgE level Modified On:03/22/2023 Status:confirmed Z87.891 History of tobacco a buse Modified On:03/22/2023 Status:confirmed R22.1 Mass in neck Modified On:02/26/2023 Status:confirmed K42.9 Hernia, umbilical Modified On:02/26/2023 Status:confirmed J44.9 COPD, moderate Modified On:02/26/2023 Status:confirmed J44.1 Acute exacerbation o f chronic obstructive airways disease Modified On:02/26/2023 Status:confirmed H66.90 Unspecified otitis m edia Modified On:02/26/2023 Status:confirmed H35.039 Hypertensive retinop athy Modified On:02/26/2023 Status:confirmed I10 Essential Hypertensi on Modified On:03/22/2023 Status:confirmed G56.03 Carpal tunnel syndro me, bilateral upper limbs Modified On:02/26/2023 Status:confirmed Z87.898 H/O headache Modified On:02/26/2023 Status:confirmed I27.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 Modified On:03/22/2023 Status:confirmed J39.2 Disorder of pharynx Modified On:02/26/2023 Status:confirmed J39.2 Oropharyngeal lesion Modified On:02/26/2023 Status:confirmed Z86.16 History of COVID-19 Modified On:03/22/2023 Status:confirmed M54.50 Low back pain, unspe cified Modified On:02/26/2023 Status:confirmed R22.41 Localized swelling, mass and lump, right lower limb Modified On:02/26/2023 Status:confirmed T78.3XXA Angioneurotic edema, initial encounter Modified On:03/08/2023 Status:confirmed L30.8 Other specified derm atitis Modified On:03/08/2023 Status:confirmed E66.01 Morbid (severe) obes ity due to excess calories Modified On:03/22/2023 Status:confirmed M25.50 Pain in unspecified joint Modified On:04/21/2023W/U Status:confirmed M50.90 Cervical disc diseas e Modified On:07/15/2024/U Status:confirmed M54.12 Cervical radiculopat hy Modified On:07/18/2024/U Status:confirmed E03.9 Hypothyroidism Modified On:05/16/2025W/U Status:confirmed * Medical History: Objective: * Vitals: H t: 67 in, BP:118/62mm Hg, Ht-cm: 170.18 cm. Assessment: * Assessment: 1. H ypertension - I10 (Primary) Plan: * Treatment: * * Sign off status: Completed Visit Status: C HK (Check Out) true * Provider: Cornelio Jose ([facility])MD Date: 0 05/22/2025 Generated for Jose Eduardo camacho/Juan/Manuelitting on: 06/10/2025 04:02 PM EDT History and Physical Notes * HPI (History of Present Illness) Category Sub-Category Detail Notes Category Not es General presents to the office for a bp check
--- OUTSIDE RECORDS SUMMARY | 2025-05-24 11:44 | XMS_ITS ---
Author Organization [facility] in [place] Address [address] [place] [address] Care Team Providers Care Automotive Generator Repairer Name Role Phone Joe Jose Primary Care Provider REASON FOR VISIT stool test Encounters Encounter Location Date Provider Diagnosis [facility] [address] [place] [address] 05/24/2025 Joe Jose Plan Of Treatment No Information Progress Notes * Sajan GRIGSBY SDOB: [birth year] (59 yo M)Acc No.[id number]:05/24/2025 Patient: Peace Sajan MALIN :1965 A ge:59 Y S ex:Male [address] [place] [address] * true * Date: Generated for Jose Eduardo camacho/Juan/eTransmitting on: 0 06/10/2025 04:01 PM EDT
--- OUTSIDE RECORDS SUMMARY | 2025-06-05 15:20 | XMS_ITS | Encounter Summary ---
Author Organization The [facility] Address [address] [place] [address] Care Team Providers Care Linoleum Mechanic Name Role Phone Ben Jose MD Primary Care Provider [phone] Reason for Referral * Imaging (Routine) - Pending Review Specialty Diagnoses / Procedures Referred By Karo t Referred To Contact Cardiology Diagnoses Shortness of breath Coronary artery disease involving [place] coronary artery of [place] heart without angina pectoris Procedures Transthoracic echo (TTE) complete Ivet Jane CNP [address] [place] [address] Phone: tel: fax: Referral ID Status Reason Start Date Expiration Date Visits Requested Visits Authorized [id number] Pending Review Perform Procedure 06/05/2025 06/05/2026 1 1 * (Routine) - Pending Review Specialty Diagnoses / Procedures Referred By Contbenito aparicio Referred To Contact Diagnoses Shortness of breath Procedures ECG 12 lead unit performed Ivet Jane CNP [address] [place] [address] Phone: tel: fax: Referral ID Status Reason Start Date Expiration Date V isits Requested Visits Authorized [id number] Pending Review 06/05/2025 06/05/2026 1 1 Reason for Visit * Reason Comments Chest Pain Coronary Artery Disease Encounter Details Date Type Department Care Team ([facility] st Contact Info) Description 06/05/2025 3:20 PM EDT Office Visit [facility] [address] [place] [address] Ivet Jane, SLITTER HELPER [address] [place] [phone] Coronary artery disease of [place] artery of [place] heart with stable angina pectoris (Primary Dx); Shortness of breath; History of coronary artery stent placement; VILLAVICENCIO (dyspnea on exertion); Mixed hyperlipidemia; Benign hypertensive heart disease without congestive heart failure; Pulmonary emphysema, unspecified emphysema type (CMS/HCC) Social History Tobacco Use Types Packs/Day Years Used Date Smoking Tobacco: Former Cigarettes 2011 Passive Smoke Exposure: Past Smokeless Tobacco: Former Quit: 2001 Alcohol Use Standard Drinks/Week Comments Not Currently 0 (1 standard drink = 0.6 oz pur e alcohol) [place] Safety & Environment Answer Date Rec orded Fear of Current or Ex-Partner Not on file Emotionally Abused Not on file 12/28/2023 Physically Abused Not on file 12/28/2023 Sexually Abused Not on file 12/28/2023 Physically or Sexually Abused Not on file Sex and Gender Information Value Date Recorded Sex Assigned at Male 06/04/2025 3:27 PM EDT Legal Sex Male 10:39 PM EDT Gender Identity Male 06/04/2025 3:27 PM EDT Sexual Orientation Heterosexual or Straight 05/08 3:27 PM EDT documented as of this encounter Last Filed Vital Signs Vital Sign Reading Time Taken Comments Blood Pressure 124/84 06/05/2025 3:39 PM EDT Pulse 62 06/05/2025 3:39 PM EDT Temperature - - Respiratory Rate - - Oxygen Saturation 96% 06/05/2025 3:39 PM EDT Inhaled Oxygen Concentration - - Weight 112 kg (247 lb) 06/05/2025 3:39 PM EDT Height 170.2 cm (5' 7 ) 06/05/2025 3:39 PM EDT Body Mass Index 38.69 06/05/2025 3:39 PM EDT documented in this encounter Progress Notes * Karon Silvestre MA - 06/05/2025 3:20 PM EDT Patient here c/o SOB. He was seen last month by Damian Wright CNP last month for routine [address] Jose just decreased his carvedilol to 12.5mg bid due to low BP's and lightheadedness. C/o chest pain also. Hasn't had echo or stress test since summer 2023. Review of Systems Constitutional: Positive for diaphoresis and malaise/fatigue. Cardiovascular: Positive for chest pain and dyspnea on exertion. Respiratory: Positive for shortness of breath. Musculoskeletal: Positive for joint pain. Neurological: Positive for excessive daytime sleepiness and light-headedness. All other systems reviewed and are negative. * Ivet Jane CNP - 06/05/2025 3:20 PM EDT Images from the original note were not included. Cardiovascular Medicine [facility] SUBJECTIVE Chief Complaint Patient presents with Chest Pain Coronary Artery Disease Sajan Humphreys is a 59 y.o. male here for follow-up. HPI PMHx: hypertension, CAD s/p PCI Lcx 2021, and hyperlipidemia COPD 04/30/2024 He is having continued SOB. He notes [...] Dr. Serna, no further cardiac interventions needed atthis time. BP at home running 140/70 Denies orthopnea, PND, LE edema, palpations, syncope. 06/05/2025 Patient here c/o SOB. He was seen last month by Damian Wright CNP last month for routine [address] Jose just decreased his carvedilol to 12.5mg bid due to low BP's and lightheadedness. C/o chest pain also. Hasn't had echo or stress test since summer 2023. He notes for the past few weeks has not felt well. He has noticed increase SOB and chest pain with exertion. He cannot roller picker his grandchildren or get up into his tractor without feeling SOB and/or chest pain He c/o increased fatigue and increased sweating with exertion. Chest pain is left sided, non radiating, 5- 6/10. Resting improves the pain and dyspnea. Denies any palpitations. He has some dizziness. He was experiencing some low BP's, dr. Jose reduced his coreg to 12.5mg BID. BP at home runing 100-120/60s Patient Active Problem List Diagnosis Chest pain CAD in [place] artery Essential hypertension COPD (chronic obstructive pulmonary disease) ([facility]) S/P drug eluting coronary stent placement Hyperplastic polyp of intestine Dyspnea Shortness of breath Severe persistent asthma with acute exacerbation ([facility]) Degeneration of intervertebral disc of cervical region Other cervical disc displacement at C6-C7 level Radiculopathy, cervical region Spinal stenosis, cervical region Hypertensive retinopathy Umbilical hernia VILLAVICENCIO (dyspnea on exertion) Past Medical History: Diagnosis Date COPD (chronic obstructive pulmonary disease) ([facility]) Coronary artery disease Hyperlipidemia Hypertension Sleep apnea Family History Problem Relation Name Age of Onset Heart failure Father Coronary artery disease Father Social History Tobacco Use Smoking status: Former Current packs/day: 0.00 Average packs/day: 1 pack/day for 30.0 years (30.0 ttl pk-yrs) Types: Cigarettes Start date: 1981 Quit date: 2011 Years since quittin.5 Passive exposure: Past Smokeless tobacco: Former Quit date: 2001 Substance Use Topics Alcohol use: Not Currently Drug use: Never No Known Allergies OBJECTIVE Visit Vitals BP 124/84 (BP Location: Right arm, Patient Position: Sitting) Pulse 62 Ht 1.702 m (5' 7 ) Wt 112 kg (247 lb) SpO2 96% BMI 38.69 kg/m?? Smoking Status Former BSA 2.3 m?? Medications: Current Outpatient Medications: aspirin 81 mg chewable tablet, CHEW AND SWALLOW 1 TABLET IN THE MORNING, Disp: 90 tablet, Rfl: 3 atorvastatin (Lipitor) 80 mg tablet, TAKE 1 TABLET AT BEDTIME, Disp: 90 tablet, Rfl: 3 carvedilol (Coreg) 12.5 mg tablet, Take 12.5 mg by mouth with breakfast and with evening [...] , Rfl: furosemide (Lasix) 40 mg tablet, TAKE 1 TABLET IN THE [...] Final Atrial Rate 08/03/2022 53 BPM Final VA Interval 08/03/2022 164 ms Final QRS DURATION 08/03/2022 100 ms Final QT Interval 08/03/2022 424 ms Final QTC CALCULATION(BAZETT) 08/03/2022 397 ms Final P [place] 08/03/2022 39 degrees Final R-[place] 08/03/2022 -7 degrees Final T Wave [place] 08/03/2022 51 degrees Final Auto WBC 08/03/2022 4.48 4.00 - 10.60 10*3/uL Final RBC 08/03/2022 4.48 4.20 - 5.70 10*6/uL Final Hemoglobin 08/03/2022 13.3 13.0 - 17.0 g/dL Final Hematocrit 08/03/2022 39.7 39.0 - 55.0 % Final MCV 08/03/2022 88.6 82.0 - 98.0 fL Final MCH 08/03/2022 29.7 27.0 - 33.0 pg Final MCHC 08/03/2022 33.5 32.0 - 35.0 g/dL Final RDW 08/03/2022 13.3 11.5 - 15.0 % Final Platelets 08/03/2022 259 150 - 400 10*3/uL Final Sodium 08/03/2022 139 136 - 145 mmol/L Final Potassium 08/03/2022 4.6 3.5 - 5.1 mmol/L Final Chloride 08/03/2022 109 (H) 98 - 107 mmol/L Final CO2 08/03/2022 22 21 - 31 mmol/L Final BUN 08/03/2022 18 7 - 25 mg/dL Final Creatinine 08/03/2022 1.13 0.70 - 1.30 mg/dL Final Glucose 08/03/2022 103 (H) 70 - 100 mg/dL Final Calcium 08/03/2022 9.5 8.6 - 10.3 mg/dL Final Anion Gap 08/03/2022 8 <=30 mmol/L Final eGFR 08/03/2022 71.2 >60.0 mL/min/1.73m*2 Final BUN/Creatinine Ratio 08/03/2022 15.93 Final SARS-CoV-2 Ag POC 08/03/2022 Negative Negative Final Ventricular Rate 08/03/2022 50 BPM Final Atrial Rate 08/03/2022 50 BPM Final VA Interval 08/03/2022 170 ms Final QRS DURATION 08/03/2022 104 ms Final QT Interval 08/03/2022 436 ms Final QTC CALCULATION(BAZETT) 08/03/2022 397 ms Final P [place] 08/03/2022 50 degrees Final R-[place] 08/03/2022 4 degrees Final T Wave [place] 08/03/2022 7 degrees Final Ventricular Rate 08/03/2022 49 BPM Final Atrial Rate 08/03/2022 49 BPM Final VA Interval 08/03/2022 166 ms Final QRS DURATION 08/03/2022 106 ms Final QT Interval 08/03/2022 428 ms Final QTC CALCULATION(BAZETT) 08/03/2022 386 ms Final P [place] 08/03/2022 50 degrees Final R-[place] 08/03/2022 0 degrees Final T Wave [place] 08/03/2022 44 degrees Final Sodium 08/04/2022 138 136 - 145 mmol/L Final Potassium 08/04/2022 4.2 3.5 - 5.1 mmol/L Final Chloride 08/04/2022 108 (H) 98 - 107 mmol/L Final CO2 08/04/2022 22 21 - 31 mmol/L Final BUN 08/04/2022 18 7 - 25 mg/dL Final Creatinine 08/04/2022 1.04 0.70 - 1.30 mg/dL Final Glucose 08/04/2022 97 70 - 100 mg/dL Final Calcium 08/04/2022 9.2 8.6 - 10.3 mg/dL Final Anion Gap 08/04/2022 8 <=30 mmol/L Final eGFR 08/04/2022 78.8 >60.0 mL/min/1.73m*2 Final BUN/Creatinine Ratio 08/04/2022 17.31 Final Auto WBC 08/04/2022 6.09 4.00 - 10.60 10*3/uL Final RBC 08/04/2022 4.08 (L) 4.20 - 5.70 10*6/uL Final Hemoglobin 08/04/2022 12.3 (L) 13.0 - 17.0 g/dL Final Hematocrit 08/04/2022 36.6 (L) 39.0 - 55.0 % Final MCV 08/04/2022 89.7 82.0 - 98.0 fL Final MCH 08/04/2022 30.1 27.0 - 33.0 pg Final MCHC 08/04/2022 33.6 32.0 - 35.0 g/dL Final RDW 08/04/2022 13.5 11.5 - 15.0 % Final Neutrophils % 08/04/2022 60.5 40.0 - 72.0 % Final Lymphocytes % 08/04/2022 27.6 20.0 - 45.0 % Final Monocytes % 08/04/2022 8.5 5.0 - 12.0 % Final Eosinophils % 08/04/2022 2.6 0.0 - 6.0 % Final Basophils % 08/04/2022 0.5 0.0 - 1.0 % Final Neutrophils Absolute 08/04/2022 3.68 1.60 - 7.60 10*3/uL Final Lymphocytes Absolute 08/04/2022 1.68 1.20 - 4.00 10*3/uL Final Monocytes Absolute 08/04/2022 0.52 0.10 - 1.00 10*3/uL Final Eosinophils Absolute 08/04/2022 0.16 0.00 - 0.50 10*3/uL Final Basophils Absolute 08/04/2022 0.03 0.00 - 0.20 10*3/uL Final Platelets 08/04/2022 214 150 - 400 10*3/uL Final nRBC % 08/04/2022 0.0 0.0 - 0.0 % Final RDWSD 08/04/2022 43.8 Final Immature Granulocytes % 08/04/2022 0.3 0.0 - 1.0 % Final Immature Granulocytes Absolute 08/04/2022 0.02 0.00 - 0.20 10*3/uL Final No results found for: EXTCMP , BMPR1A , CBCDIF , BNP , LASAP , RED 04/25/2025 Hgb 11.9, WBC 7.1, plt 364 Cr 0.99, BUN 20, K 4.3, Na 141, eGFR >60, ALT 25, AST 34 Chol 84, HDL 36, LDL 7, trig 206 04/26/2024 Cr 1.34, BUN 26, K 3.9, Na 144, eGFR 54 04/15/2024 Cr 1.54, BUN 34, Na 143, K 3.9, eGFR 46 AST 36, ALT 28 NTproBNP 27 02/21/2024 Cr 1.28, BUN 25, K 3.6, Na 141, eGFR 57 Testing/Procedures: ECHO 05/21/2024 Mild LVH with normal systolic function, LVEF 65% Normal RV size and systolic function Moderate biatrial dilatation Mild to moderate aortic and tricuspid regurg Mildly elevated right sided pressures with RVSP at 38 Mildly dilated aortic root measuring 4.1cm Lexiscan stress test 04/16/24 -No ischemic EKG changes Cardiac catheterization 08/03/2022 Final impressions: 1. Severe [...] 5. Follow-up with Dr. Serna in the [facility] in the next 2 to 4 weeks [...] and ejection fraction 61% Echo: 04/18/2022 LV systolic function is lower limits of normal with ejection fraction 50 to 55%. LV is mildly dilated. RV systolic function is normal Normal diastolic function Mild aortic valve and tricuspid valve regurg Mildly elevated right-sided pressures with RVSP of 38 CTA chest: 04/11/2022 no central pulmonary thromboembolic disease Lungs show minimal scattered emphysematous change most significant in the left apex No significant pulmonary nodule mass Vasculature normal postcontrast opacification of the central pulmonary artery tree Mediastinum no new mass or adenopathy Cardiac no enlargement, pericardial thickening, or significant calcification Aorta no aneurysm or dissection ASSESSMENT/PLAN: 1. Coronary artery disease of [place] artery of [place] heart with stable angina pectoris 2. Shortness of breath 3. History of coronary artery stent placement 4. VILLAVICENCIO (dyspnea on exertion) 5. Mixed hyperlipidemia 6. Benign hypertensive heart disease without congestive heart failure 7. Pulmonary emphysema, unspecified emphysema type (CMS/HCC) #Coronary artery disease, history of PCI/stent placement to the left circumflex 07/2022 #Stable angina #VILLAVICENCIO, worsening -He c/o CP with exertion with accompanied worsened VILLAVICENCIO for the past month or so. He notes that sx'sfeel similar to the sx's he had prior to his stent placement in 2021. -Will order an ECHO to assess heart function, valve function, etc. -Discussed with Dr. Serna, will proceed with a coronary angiogram to assess for any areas of significant stenosis given he had a prior normal stress test before his last stent placement. Will alsoproceed with a RHC to assess his right sided pressures. Pt is agreeable with this plan. -Continue ASA, plavix, statin, BB. #HTN -Well controlled -Continue current doses of coreg, lisinopril, doxazosin #HLD -Recent lipid panel from 04/25/25 reviewed with pt - triglycerides are elevated at 206, discussed cutting back on carbs, sugars, and ETOH intake. #COPD #CKD Follow up in about 1 month (around 07/06/2025). Ivet Jane CNP [facility] Cardiovascular Medicine documented in this encounter Plan of Treatment Upcoming Encounters Date Type Department Care Team (Late st Contact Info) Description 06/12/2025 12:30 PM EDT Hospital Encounter [facility] V[facility] Lab [address] [place] [address] Arturo Yu MD [address] [facility] [place] [address] Chest pain, unspecified type; VILLAVICENCIO (dyspnea on exertion) 06/12/2025 12:30 PM EDT - 06/12/2025 1:45 PM EDT Surgery [facility] [address] [place] [phone] Arturo Yu MD [address] [facility] [place] [address] Coronary angiography Scheduled Orders Name Type Priority Associated Diagnoses Order Schedule Transthoracic echo (TTE) complete Echocardiography Routine Shortness of breath Coronary artery disease of [place] artery of [place] heart with stable angina pectoris Expected: 06/05/2025 (Approximate), Expires: 06/05/2027 Scheduled Procedures Name Priority Associated Diagnoses Date/Ti me RIGHT HEART CATH VILLAVICENCIO (dyspnea on exertion) documented as of this encounter Procedures Procedure Name Priority Date/Time Associated Diagnosis Comments ECG 12 LEAD UNIT PERFORMED Routine 06/05/2025 3:32 PM EDT Shortness of breath documented in this encounter Results * ECG 12 lead unit performed (06/05/2025 3:32 PM EDT) Ivet Jane [facility] ECG ORDERABLES Final Result documented in this encounter Visit Diagnoses Diagnosis Coronary artery disease of [place] artery of [place] heart with stable angina pectoris- Primary Shortness of breath History of coronary artery stent placement VILLAVICENCIO (dyspnea on exertion) Other dyspnea and respiratory abnormality Mixed hyperlipidemia Benign hypertensive heart disease without congestive heart failure Benign hypertensive heart disease without heart failure Pulmonary emphysema, unspecified emphysema type (CMS/HCC) VILLAVICENCIO (dyspnea on exertion)- Primary Other dyspnea and respiratory abnormality Chest pain, unspecified type Chest pain, unspecified type VILLAVICENCIO (dyspnea on exertion) Other dyspnea and respiratory abnormality documented in this encounter Care Teams Linoleum Mechanic Relationship Specialty Start Date End Date Ben Jose MD [address] [facility] [place] [address] PCP - General 11/15/22 documented as of this encounter
--- OUTSIDE RECORDS SUMMARY | 2025-06-10 16:02 | XMS_ITS | Encounter Summary ---
Author Organization [facility] Address [address] [address] Care Team Providers Care Professor Of Management Name Role Phone Ben Jose MD Primary Care Provider [phone] Encounter Details Date Type Department Care Team (Late Contact Info) Description 06/12/2023 Abstract [facility] [facility] [address] [place] [phone] Cesar Dunham MD [address] [facility] [address] [place] [address] Social History Tobacco Use Types Packs/Day Years Used Date Smoking Tobacco: Former Cigarettes Q uit: 10/2017 Smokeless Tobacco: Never Tobacco Cessation:Counseling Given: Not Answered Alcohol Use Standard Drinks/Week Comments Never 0 (1 standard drink = 0.6 oz pure alcohol) Caffeine intake: >4 cups per day Sex and Gender Information Value Date Recorded Sex Assigned at Male 06/05/2023 3:46 PM EDT Legal Sex Male 7:06 PM EDT Gender Identity Male 06/05/2023 3:46 PM EDT Sexual Orientation Not on file COVID-19 Exposure Response Date Recorded In the last 10 days, have yo u been in contact with someone who was confirmed or suspected to have Coronavirus/COVID-19? No / Unsure 06/05/2023 6:22 PM EDT documented as of this encounter Plan of Treatment Upcoming Encounters Date Type Department Care Team (Late Contact Info) Description 08/04/2025 4:00 PM EDT Office Visit [facility] [address] [place] [address] Cesar Dunham MD [address] [facility] [address] [place] [address] documented as of this encounter Visit Diagnoses Not on filedocumented in this encounter Care Teams Professor Of Management Relationship Specialty Start Date End Date Ben Jose MD [address] [place] [phone] PCP - General 06/05/23 documented as of this encounter
--- OUTSIDE RECORDS SUMMARY | 2025-06-10 16:02 | XMS_ITS | Clinical Summary ---
Author Organization [facility] Address [id number] [address] [place] [address] Care Team Providers Care Business And Marketing Teacher Name Role Phone Ben Jose MD Primary Care Provider [phone] Allergies No known active allergies Medications olmesartan (BENICAR) 40 mg tablet Take 40 mg by mouth daily. Active WELCHOL 625 mg tablet Take 4 tablets by mouth daily. 8 Active albuterol (PROVENTIL HFA;VENTOLIN HFA) 90 mcg/actuation inhaler Inhale 2 puffs every 4 (four) hours as needed for wheezing. 18 g 11 8 Active carvedilol (COREG) 12.5 mg tablet Take 1 tablet (12.5 mg total) by mouth 2 (two) times a day. 180 tablet 3 9 Active Additional Information Patient taking differently: 25 mgoralDaily, Reported on 04/26/2019 glycopyrrolate- formoterol (BEVESPI AEROSPHERE) 9-4.8 mcg HFA aerosol inhaler Inhale 2 puffs 2 (two) times a day. 4 Inhaler 9 Active nabumetone (RELAFEN) 500 mg tablet Take 1,000 mg by mouth 2 (two) times a day. Active Active Problems Problem Noted Date Diagnosed Date Shortness of breath 11/22/2018 Hyperplastic polyp of intestine 05/03/2017 Hypertension Immunizations Immunization Administration Dates Next Due Tdap 04/30/2019 Family History Medical History Relation Name Comments Heart disease Father Leukemia Mother Relation Name Status Comments Father Mother Social History Tobacco Use Types Packs/Day Years Used Date Smoking Tobacco: Former Cigarettes 1.5 25 1 12/08/1991 - 10/07/2017 Smokeless Tobacco: Never Tobacco Cessation:Ready to Q uit: Yes Alcohol Use Standard Drinks/Week Comments No 0 (1 standard drink = 0.6 oz pur e alcohol) Childcare Answer Date Recorded Childcare Unknown 04/11/2019 Employment Answer Date Recorded Employment Unknown 04/11/2019 Purpose - Life Answer Date Recorded Purpose and direction in life Unknown Sex and Gender Information Value Date Recorded Sex Assigned at Not on file Legal Sex Male 11:43 AM EDT Gender Identity Not on file Sexual Orientation Not on file Last Filed Vital Signs Vital Sign Reading Time Taken Comments Blood Pressure 156/115 04/30/2019 8:42 PM EDT Pulse 90 04/30/2019 8:42 PM EDT Temperature 36.7 C (98.1 F) 04/30/2019 8:42 PM EDT Respiratory Rate 18 04/30/2019 8:42 PM EDT Oxygen Saturation 97% 04/30/2019 8:42 PM EDT Inhaled Oxygen Concentration - - Weight 108.9 kg (240 lb) 04/30/2019 8:42 PM EDT Height 170.2 cm (5' 7 ) 04/30/2019 8:42 PM EDT Body Mass Index 37.59 04/30/2019 8:42 PM EDT Plan of Treatment Health Maintenance Due Date Last Done Comments Depression Screening 1975 Tobacco Screening 1975 Adult BMI Screening 1981 Zoster (Shingles) Vaccine (1 of 2) 2013 Influenza Vaccine 07/07/2025 DTaP,Tdap and Td Vaccines (2 - Td or Tdap) 04/30/2029 04/30/2019 Medical Devices Not on file Insurance [employer] Care Teams Business And Marketing Teacher Relationship Specialty Start Date End Date Ben Jose MD PCP - General 03/28/17
--- OUTSIDE RECORDS SUMMARY | 2025-06-10 16:02 | XMS_ITS | Encounter Summary ---
Author Organization [facility] Address [address] [place] [address] Care Team Providers Care Boat Designer Name Role Phone Ben Jose MD Primary Care Provider [phone] Reason for Visit * Reason Onset Date Comments Med Refill 06/05/2025 Encounter Details Date Type Department Care Team (Late st Contact Info) Description 06/05/2025 Refill [facility] [address] [place] [phone] [facility] [place] Social History Tobacco Use Types Packs/Day Years Used Date Smoking Tobacco: Former Cigarettes 2011 Passive Smoke Exposure: Past Smokeless Tobacco: Former Quit: 2001 Alcohol Use Standard Drinks/Week Comments Not Currently 0 (1 standard drink = 0.6 oz pur e alcohol) [place] Safety & Environment Answer Date Rec orded [...] Description 06/12/2025 12:30 PM EDT Hospital Encounter [facility] [place] [facility] [address] [place] [phone] Arturo Yu MD [address] [facility] [address] [place] [phone] Chest pain, unspecified type; VILLAVICENCIO (dyspnea on exertion) 06/12/2025 12:30 PM EDT - 06/12/2025 1:45 PM EDT Surgery [facility] [place] [facility] [address] [place] [phone] Arturo Yu MD [address] [facility] [address] [place] [address] Coronary angiography Scheduled Procedures Name Priority Associated Diagnoses Date/Ti me RIGHT HEART CATH VILLAVICENCIO (dyspnea on exertion) documented as of this encounter Visit Diagnoses Not on filedocumented in this encounter Care Teams Boat Designer Relationship Specialty Start Date End Date Ben Joes MD [address] [facility] [address] PCP - General 11/15/22 documented as of this encounter
--- OUTSIDE RECORDS SUMMARY | 2025-06-10 16:02 | XMS_ITS | Encounter Summary ---
Author Organization [facility] Address [address] [place] [address] Care Team Providers Care Manager Of Exhibitions And Collections Name Role Phone Ben Jose MD Primary Care Provider [phone] Reason for Visit * Reason Comments Med Refill Encounter Details Date Type Department Care Team (Late st Contact Info) Description 09/06/2023 Refill [facility] Heart at [facility] [address] [place] [address] Justino Serna MD [address] [facility] [address] [facility] [place] [address] CAD in [place] artery Social History Tobacco Use Types Packs/Day Years Used Date Smoking Tobacco: Former Cigarettes 2 - 2011 Smokeless Tobacco: Former Quit: 2001 Alcohol Use Standard Drinks/Week Comments Not Currently 0 (1 standard drink = 0.6 oz pur e alcohol) Sex and Gender Information Value Date Recorded Sex Assigned at Male 06/04/2025 3:27 PM EDT Legal Sex Male 10:39 PM EDT Gender Identity Male 06/04/2025 3:27 PM EDT Sexual Orientation Heterosexual or Straight 05/08 3:27 PM EDT documented as of this encounter Plan of Treatment Upcoming Encounters Date Type Department Care Team (Late st Contact Info) Description 06/12/2025 12:30 PM EDT Hospital Encounter [facility] Heart and Vascular Center Vascular Lab [address] [place] [address] Arturo Yu MD [address] [facility] [address] [facility] [place] [address] Chest pain, unspecified type; VILLAVICENCIO (dyspnea on exertion) 06/12/2025 12:30 PM EDT - 06/12/2025 1:45 PM EDT Surgery [facility] Heart and Vascular Center Vascular Lab [address] [place] [phone] Arturo Yu MD [address] [facility] [address] [facility] [place] [phone] Coronary angiography Scheduled Procedures Name Priority Associated Diagnoses Date/Ti me RIGHT HEART CATH VILLAVICENCIO (dyspnea on exertion) documented as of this encounter Visit Diagnoses Diagnosis CAD in [place] artery VILLAVICENCIO (dyspnea on exertion)- Primary Other dyspnea and respiratory abnormality Chest pain, unspecified type Chest pain, unspecified type VILLAVICENCIO (dyspnea on exertion) Other dyspnea and respiratory abnormality documented in this encounter Care Teams Manager Of Exhibitions And Collections Relationship Specialty Start Date End Date Ben Jose MD [address] [facility] [place] [address] PCP - General 11/15/22 documented as of this encounter
--- OUTSIDE RECORDS SUMMARY | 2025-06-10 16:03 | XMS_ITS | Encounter Summary ---
Author Organization [facility] Address [address] [place] [address] Care Team Providers Care Medical Cost Consultant Name Role Phone Ben Jose MD Primary Care Provider [phone] Encounter Details Date Type Department Care Team (Late st Contact Info) Description 06/06/2025 Orders Only [facility] [address] [place] [address] Karime De Souza MA Encounter for pre-operative examination (Primary Dx); VILLAVICENCIO (dyspnea on exertion) Social History Tobacco Use Types Packs/Day Years Used Date Smoking Tobacco: Former Cigarettes 2011 Passive Smoke Exposure: Past Smokeless Tobacco: Former Quit: 2001 Alcohol Use Standard Drinks/Week Comments Not Currently 0 (1 standard drink = 0.6 oz pur e alcohol) [place] Safety & Environment Answer Date Rec orded [...] Description 06/12/2025 12:30 PM EDT Hospital Encounter [facility] Heart and Vascular [place] [facility] [address] [place] [address] Arturo Yu MD [address] [facility] [address] [place] [address] Chest pain, unspecified type; VILLAVICENCIO (dyspnea on exertion) 06/12/2025 12:30 PM EDT - 06/12/2025 1:45 PM EDT Surgery [facility] Heart [facility] Vascular [place] [facility] [address] [place] [address] Arturo Yu MD [address] [place] [address] Coronary angiography Scheduled Orders Name Type Priority Associated Diagnoses Orde r Schedule Basic metabolic panel Lab Routine Encounter for pre-operative examination Expected: 06/06/2025 (Approximate), Expires: 06/06/2026 CBC and differential Lab Routine Encounter for pre-operative examination Expected: 06/06/2025 (Approximate), Expires: 06/06/2026 Scheduled Procedures Name Priority Associated Diagnoses Date/Ti ut RIGHT HEART CATH VILLAVICENCIO (dyspnea on exertion) documented as of this encounter Visit Diagnoses Diagnosis Encounter for pre-operative examination- Primary VILLAVICENCIO (dyspnea on exertion) Other dyspnea and respiratory abnormality VILLAVICENCIO (dyspnea on exertion)- Primary Other dyspnea and respiratory abnormality Chest pain, unspecified type Chest pain, unspecified type VILLAVICENCIO (dyspnea on exertion) Other dyspnea and respiratory abnormality documented in this encounter Care Teams Medical Cost Consultant Relationship Specialty Start Date End Date Ben Jose MD [address] [facility] [place] [address] PCP - General 11/15/22 documented as of this encounter
--- OUTSIDE RECORDS SUMMARY | 2025-06-10 16:03 | XMS_ITS | Encounter Summary ---
Author Organization [facility] Address [address] [place] [address] Care Team Providers Care Lithographic Stripper Name Role Phone Ben Jose MD Primary Care Provider [phone] Encounter Details Date Type Department Care Team (Late st Contact Info) Description 06/06/2025 Orders Only [facility] [address] [place] [address] Karime De Souza MA Chest pain, unspecified type (Primary Dx); VILLAVICENCIO (dyspnea on exertion) Social History Tobacco Use Types Packs/Day Years Used Date Smoking Tobacco: Former Cigarettes 2011 Passive Smoke Exposure: Past Smokeless Tobacco: Former Quit: 2001 Alcohol Use Standard Drinks/Week Comments Not Currently 0 (1 standard drink = 0.6 oz pur e alcohol) CT Safety & Environment Answer Date Rec orded [...] EDT Hospital Encounter [facility] Heart and Vascular [place] Vascular Lab [address] [place] [address] Arturo Yu MD [address] [facility] [address] [place] [address] Chest pain, unspecified type; VILLAVICENCIO (dyspnea on exertion) 06/12/2025 12:30 PM EDT - 06/12/2025 1:45 PM EDT Surgery [facility] [place] [facility] [address] [place] [address] Arturo Yu MD [address] [facility] [address] [place] [address] Coronary angiography Scheduled Procedures Name Priority Associated Diagnoses Date/Ti me RIGHT HEART CATH VILLAVICENCIO (dyspnea on exertion) documented as of this encounter Visit Diagnoses Diagnosis Chest pain, unspecified type- Primary VILLAVICENCIO (dyspnea on exertion) Other dyspnea and respiratory abnormality VILLAVICENCIO (dyspnea on exertion)- Primary Other dyspnea and respiratory abnormality Chest pain, unspecified type Chest pain, unspecified type VILLAVICENCIO (dyspnea on exertion) Other dyspnea and respiratory abnormality documented in this encounter Care Teams Lithographic Stripper Relationship Specialty Start Date End Date Ben Jose MD [address] [facility] [place] [address] PCP - General 11/15/22 documented as of this encounter
--- OUTSIDE RECORDS SUMMARY | 2025-06-10 16:03 | XMS_ITS | Encounter Summary ---
Author Organization [facility] Address [address] [place] [address] Care Team Providers Care Presser Cotton Ginning Name Role Phone Ben Jose MD Primary Care Provider [phone] Reason for Visit * Reason Comments Med Refill Encounter Details Date Type Department Care Team (Late st Contact Info) Description 03/18/2023 Refill [facility] [address] [place] [address] Alexus Mcarthur, NICHOLAS [address] [place] [address] Social History Tobacco Use Types Packs/Day Years Used Date Smoking Tobacco: Former Cigarettes - 2011 Smokeless Tobacco: Former Quit: 2001 [...] Description 06/12/2025 12:30 PM EDT Hospital Encounter [facility] Heart and Vascular Center Vascular Lab [address] [place] [address] Arturo Yu MD [address] [place] [address] Chest pain, unspecified type; VILLAVICENCIO (dyspnea on exertion) 06/12/2025 12:30 PM EDT - 06/12/2025 1:45 PM EDT Surgery [facility] Heart and Vascular Center Vascular Lab [address] [place] [phone] Arturo Yu MD [address] [facility] [address] [place] [address] Coronary angiography Scheduled Procedures Name Priority Associated Diagnoses Date/Ti me RIGHT HEART CATH VILLAVICENCIO (dyspnea on exertion) documented as of this encounter Visit Diagnoses Not on filedocumented in this encounter Care Teams Presser Cotton Ginning Relationship Specialty Start Date End Date Ben Jose MD [address] [facility] [address] [address] PCP - General 11/15/22 documented as of this encounter
--- OUTSIDE RECORDS SUMMARY | 2025-06-10 16:03 | XMS_ITS | Clinical Summary ---
Author Organization [facility] Address [address] [place] [address] Care Team Providers Care Operating System Programmer Name Role Phone Ben Jose MD Primary Care Provider [phone] Allergies No known active allergies Medications hydrOXYzine HCl (Atarax) 50 MG tablet Take by mouth. Active aspirin 81 MG chewable tablet CHEW AND SWALLOW 1 TABLET IN THE MORNING 2 Active lisinopril 20 MG tablet Take by mouth Daily. Active atorvastatin (Lipitor) 80 MG tablet Take 80 mg by mouth at bedtime 2 Active carvedilol (Coreg) 25 MG tablet Take 1 tablet by mouth in the morning and 1 tablet before bedtime. Active clopidogrel (Plavix) 75 MG tablet Take 75 mg by mouth in the morning. 3 Active doxazosin (Cardura) 4 MG tablet Take 1 tablet by mouth Daily Active fenofibrate (Tricor) 145 MG tablet Take 145 mg by mouth in the morning. Active ferrous sulfate 325 (65 Fe) MG tablet Take 325 mg by mouth in the morning. Take with meals. Active dupilumab (Dupixent) 300 MG/2ML injectionIndicati ons:Severe persistent asthma with (acute) exacerbation (HCC) Inject 2 mL (300 mg) under the skin every 14 (fourteen) days 4 mL 6 4 Active diclofenac (Voltaren) 75 MG EC tablet Take 75 mg by mouth in the morning and 75 mg before bedtime. Do not crush, chew, or split.. Active furosemide (Lasix) 40 MG tablet 4 Active Active Problems Problem Noted Date Diagnosed Date Severe persistent asthma with acute exacerbation 11/23/2023 COPD (chronic obstructive pulmonary disease) Essential hypertension 08/04/2022 CAD in [place] artery 08/03/2022 History of coronary artery stent placement 08/03 Encounters Date Type Department Care Team Description 04/30/2025 4:15 PM EDT Office Visit [facility] [address] [place] [address] Angel Alcaraz DPM Onychodystrophy (Primary Dx); Onychomycosis 04/30/2025 Bamboo flowsheet [facility] [address] [place] [address] Angel Alcaraz DPM 04/30/2025 Travel 04/29/2025 Travel 04/14/2025 Travel from Last 3 Months Family History Medical History Relation Name Comments Heart disease Father [place] Heart disease Maternal Grandfather Diabetes Maternal Grandmother Mae Hypertension Maternal Grandmother Mae Diabetes Mother Mae No Known Problems Paternal Grandfather No Known Problems Paternal Grandmother Relation Name Status Comments Father [place] Maternal Grandfather Maternal Grandmother Mae Mother Mae Alive Paternal Grandfather Paternal Grandmother Social History Tobacco Use Types Packs/Day Years Used Date Smoking Tobacco: Former Cigarettes 0 12/11/1986 - 10/27/2011 Smokeless Tobacco: Former Snuff Quit: 12/11/1994 Tobacco Cessation:Counseling Given: Not Answered Alcohol Use Standard Drinks/Week Comments Not Currently 0 (1 standard drink = 0.6 oz pure alcohol) Caffeine intake: >4 cups per day Sex and Gender Information Value Date Recorded Sex Assigned at Male 06/05/2023 3:46 PM EDT Legal Sex Male 7:06 PM EDT Gender Identity Male 06/05/2023 3:46 PM EDT Sexual Orientation Not on file Last Filed Vital Signs Vital Sign Reading Time Taken Comments Blood Pressure 133/76 04/17/2018 12:00 PM EDT Pulse - - Temperature - - Respiratory Rate - - Oxygen Saturation - - Inhaled Oxygen Concentration - - Weight 117 kg (258 lb) 04/30/2025 4:14 PM EDT Height 170.2 cm (5' 7 ) 04/30/2025 4:14 PM EDT Body Mass Index 40.41 04/30/2025 4:14 PM EDT Plan of Treatment Upcoming Encounters Date Type Department Care Team (Late st Contact Info) Description 08/04/2025 4:00 PM EDT Office Visit [facility] [address] [place] [phone] Cesar Dunham MD [address] [facility] [address] [place] [address] Health Maintenance Due Date Last Done Comments CT Colonography 1963 Colonoscopy 1963 Colorectal Cancer Screening 1963 FIT-DNA 1963 FIT 1963 FOBT 1963 Sigmoidoscopy 1963 Influenza Vaccine (#1) 2025 Insurance [employer] Care Teams Operating System Programmer Relationship Specialty Start Date End Date Ben Jose MD [address] [facility] [place] [address] PCP - General 06/05/23
--- OUTSIDE RECORDS SUMMARY | 2025-06-10 16:03 | XMS_ITS | Patient Health Record ---
Author Organization [facility] Address [address] [place] [address] Care Team Providers Care Radio Division Captain Name Role Phone Joe Mack Primary Care Provider [phone] Allergies No Known Allergies Results Component Value Reference Range Notes PROF CHEM 8 (BAS METB) Reviewed date:06/11/2024 08:27:07 PM Interpretation: Performing Lab: Notes/Report: [facility] , Sodium 138 136-145 mmol/L Potassium 3.8 3.5-5.1 mmol/L Chloride 106 98-107 mmol/L Carbon Dioxide 26.3 21.0-32.0 mmol/L Anion Gap 9.5 Glucose 86 74-106 mg/dL Blood Urea Nitrogen 26.0 7.0-18.0 mg/dL Creatinine 1.31 0.70-1.30 mg/dL Estimated GFR ( Rosemary >60 >=60 Estimated GFR (Non- Nicole 56 >=60 BUN Creatinine Ratio 19.8 Calcium 9.1 8.5-10.1 mg/dL Performing Lab: see note ML - [facility] LB XR cervical spine 2-3V Reviewed date:07/10/2024 07:39:57 PM Interpretation: Performing Lab: Notes/Report: Source Facility: [facility]-[address] [place] [address] [place] [address] XRay Report Signed Patient: SAJAN GRIGSBY MR#: [id number] : 1965 Acct:[id number] Age/Sex: 58 / M ADM Date: 07/09/24 Loc: RAD Attending Dr: Justino Serna M.D. Ordering Physician: Justino Serna M.D. Date of Service: 07/09/24 Procedure(s): XR cervical spine 2-3V Accession Number(s): [id number] cc: Justino Serna M.D.; Ben Mack M.D. The [place] [address] Patient Name: SAJAN GRIGSBY MRN: [id number] date: 1965 Sex: M Assigned Patient Location: RAD Current Patient Location: Accession/Order Number: [id number] Exam Date: 07/09/2024 15:25 Report Date: 07/10/2024 12:55 At the request of: JUSTINO SERNA Procedure: XR cervical spine 2-3V EXAMINATION: XR cervical spine 2-3V HISTORY: Cervicalgia M54.2 ; chronic neck pain COMPARISON: No relevant comparison available. FINDINGS: BONES: No significant spondylosis, scoliosis, fracture, or visible bony lesion. DISC SPACES: C6-7 marked narrowing. PARASPINOUS: Negative. No paraspinous abnormality is seen. OTHER: Negative. XR/XR cervical spine 2-3V IMPRESSION: 1. C6-7 moderate disc space narrowing likely contributing to patient's symptoms. Electronically authenticated by: RAVIN HART Date: 07/10/2024 12:55 Dictated By: Ravin Hart M.D. Signed By: 07/10/24 1258 DD/ 1255 TD/TT: Signal Mechanic: [place] [address] XRay Report Signed Patient: HAIDER GRIGSBY MR#: [id number] : 1965 Acct:[id number] Age/Sex: 58 / M ADM Date: 07/09/24 Loc: RAD Attending Dr: Justino Serna M.D. Ordering Physician: Justino Serna M.D. Date of Service: 07/09/24 Procedure(s): XR cervical spine 2-3V Accession Number(s): [id number] cc: Justino Serna M.D.; Ben Mack M.D. The [address] [address] Patient Name: SAJAN GRIGSBY MRN: [id number] date: 1965 Sex: M Assigned Patient Location: [facility] Current Patient Location: Accession/Order Number: [id number] Exam Date: 07/09/2024 15:25 Report Date: 07/10/2024 12:55 At the request of: JUSTINO SERNA Procedure: XR cervic al spine 2-3V EXAMINATION: XR cervical spine 2-3V HISTORY: Cervicalgia M54.2 ; chronic neck pain COMPARISON: No relevant comparison available. FINDINGS: BONES: No significan t spondylosis, scoliosis, fracture, or visible bony lesion. DISC SPACES: C6-7 marked narrowing. PARASPINOUS: Negativ e. No paraspinous abnormality is seen. OTHER: Negative. XR/XR cervical spine 2-3V IMPRESSION: 1. C6-7 moderate dis c space narrowing likely contributing to patient's symptoms. Electronically authenticated by: RAVIN HART Date: 07/10/2024 12:55 Dictated By: Ravin Hart M.D. Signed By: 07/10/24 1258 DD/ 1255 TD/TT: Signal Mechanic: CBC AUTO DIFF Reviewed date:04/24/2025 07:09:42 PM Interpretation: Performing Lab: Notes/Report: [facility] , White Blood Count 7.1 4.0-11.0 10 3/uL Red Blood Count 3.86 4.70-6.10 10 6/uL Hemoglobin 11.9 14.0-18.0 g/dL Hematocrit 35.0 42.0-54.0 % Mean Corpuscular Volume 90.7 80.0-94.0 fL Mean Corpuscular Hemoglobin 30.8 25.9-34.0 pg Mean Corpuscular HGB Conc 34.0 29.9-35.2 g/dL Red Cell Distribution Width 13.2 11.0-15.0 % Platelet Count 364 150-450 10 3/uL Mean Platelet Volume 10.1 9.5-13.5 fL Neutrophils Percent Auto 51.5 43.0-75.0 % Lymphocytes Percent Auto 34.6 20.5-60.0 % Monocytes Percent Auto 8.3 1.7-12.0 % Eosinophils Percent Auto 2.8 0.9-7.0 % Basophils Percent Auto 1.0 0.2-2.0 % Immature Granulocytes Pct Auto 1.8 0.0-0.5 % Neutrophils Absolute Auto 3.7 1.4-6.5 10 3/uL Lymphocytes Absolute Auto 2.5 1.2-3.8 10 3/uL Monocytes Absolute Auto 0.6 0.3-0.8 10 3/uL Eosinophils Absolute Auto 0.2 0.0-0.7 10 3/uL Basophils Absolute Auto 0.1 0.0-0.1 10 3/uL Immature Granulocytes Abs Auto 0.13 0.00-0.03 10 3/uL Performing Lab: see note ML - [facility] LB PROF 14(COMP METB) Reviewed date:04/24/2025 07:09:42 PM Interpretation: Performing Lab: Notes/Report: [facility] , Sodium 141 136-145 mmol/L Potassium 4.3 3.5-5.1 mmol/L Chloride 107 98-107 mmol/L Carbon Dioxide 24.8 21.0-32.0 mmol/L Anion Gap 13.5 Glucose 105 74-106 mg/dL Blood Urea Nitrogen 20.0 7.0-18.0 mg/dL Creatinine 0.99 0.70-1.30 mg/dL Estimated GFR ( Rosemary >60 >=60 mL/min/1.73m 2 Estimated GFR (Non- Nicole >60 >=60 mL/min/1.73m 2 BUN Creatinine Ratio 20.2 Calcium 8.7 8.5-10.1 mg/dL Bilirubin Total 0.3 0.2-1.0 mg/dL Aspartate Amino Transferase 34 15-37 U/L Alanine Aminotransferase 25 16-63 U/L Alkaline Phosphatase 63 46-116 U/L Total Protein 6.6 6.4-8.2 g/dL Albumin Level 3.3 3.4-5.0 g/dL Globulin 3.3 Albumin Globulin Ratio 1.0 Performing Lab: see note ML - [facility] LB FREE T3 Reviewed date:05/15/2025 07:12:38 PM Interpretation: Performing Lab: Notes/Report: [facility] , Free T3 1.31 2.18-3.98 pg/mL Performing Lab: see note - [facility] LB PSA Reviewed date:05/15/2025 07:12:38 PM Interpretation: Performing Lab: Notes/Report: [facility] , Prostate Specific Antigen Dx 1.21 <=4.00 ng/mL Performing Lab: see note - [facility] LB T4 Reviewed date:05/15/2025 07:12:38 PM Interpretation: Performing Lab: Notes/Report: [facility] , T4 Thyroxine 6.10 4.50-12.10 ug/dL Performing Lab: see note - [facility] LB TSH Reviewed date:05/15/2025 07:12:38 PM Interpretation: Performing Lab: Notes/Report: [facility] , Thyroid Stimulating Hormone 1.654 0.358-3.740 uIU/mL Performing Lab: see note - [facility] E coli Shiga Toxin EIA Reviewed date:05/21/2025 08:24:52 PM Interpretation: Performing Lab: Notes/Report: [facility] , E coli Shiga Toxin EIA See Below For Report E coli Shiga Toxin EIA E coli Shiga Toxin EIA Negative E coli Shiga Toxin EIA E coli Shiga Toxin EIA Performed at: [facility] E coli Shiga Toxin EIA E coli Shiga Toxin EIA [address] [place], [place] [id number] E coli Shiga Toxin EIA E coli Shiga Toxin EIA Electrical Design Technologist: Suleiman Cartagena PhD, Phone: [phone] E coli Shiga Toxin EIA Performing Lab: see note [facility] SEE REPORT - Log Skidder Id information not found for OBX-specific lead tank mechanic legend Salmonella/Shigella Screen Reviewed date:05/24/2025 03:45:05 PM Interpretation: Performing Lab: Notes/Report: [facility] , Salmonella/Shigella Screen See Below For Report Salmonella/Shigella Screen Salmonella/Shigella Screen No Salmonella or Shigella recovered. Salmonella/Shigella Screen Performing Lab: see note [facility] LB Campylobacter Culture Reviewed date:05/24/2025 03:45:05 PM Interpretation: Performing Lab: Notes/Report: [facility] , Campylobacter Culture See Below For Report Campylobacter Culture No Campylobacter species isolated. Performing Lab: see note - [facility] LB E coli Shiga Toxin EIA Reviewed date:05/24/2025 03:45:05 PM Interpretation: Performing Lab: Notes/Report: [facility] , E coli Shiga Toxin EIA See Below For Report E coli Shiga Toxin EIA E coli Shiga Toxin EIA Negative E coli Shiga Toxin EIA E coli Shiga Toxin EIA Performed at: [facility] E coli Shiga Toxin EIA E coli Shiga Toxin EIA [address] [place], [place] [id number] E coli Shiga Toxin EIA E coli Shiga Toxin EIA Electrical Design Technologist: Suleiman Cartagena PhD, Phone: [phone] E coli Shiga Toxin EIA Performing Lab: see note - [facility] LB SEE REPORT - Log Skidder Id information not found for OBX-specific lead tank mechanic legend LIPID PROFILE Reviewed date:04/24/2025 07:09:42 PM Interpretation: Performing Lab: Notes/Report: [facility] , Triglycerides 206 <=150 mg/dL Cholesterol 84 <=200 mg/dL HDL Cholesterol 36 40-60 mg/dL > or =60 mg/dl - LOW CARDIOVASCULAR RISK <40 mg/dl - HIGH CARDIOVASCULAR RISK LDL Cholesterol Calculated 7.0 <100 mg/dl OPTIMAL 100-129 mg/dl NEAR OR ABOVE OPTIMAL 130-159 mg/dl BORDERLINE HIGH 160-189 mg/dl HIGH >190 mg/dl VERY HIGH VLDL CHOLESTEROL 41.2 Chol HDL Ratio 2.3 3.3 - 4.4 LOW RISK 4.4 - 7.1 AVERAGE RISK 7.1 - 11.0 MODERATE RISK >11.0 HIGH RISK Performing Lab: see note ML - [facility] LB C. Difficile PCR Reviewed date:05/18/2025 04:45:05 PM Interpretation: Performing Lab: Notes/Report: [facility] , C. Difficile PCR POSITIVE RESULTS ERICH LED TO DR. MACK Performing Lab: see note ML - [facility] LB Reason For Referral Diagnosis 1 Cervical disc diseas e (M50.90) Referral Organization [facility] Referring Provider First Name Joe Referring Provider Last Name Rebeca Referring Provider Speciality [facility] Referred Provider Specialty Neurological Surgery Referral Priority Routine Medications Medication SIG (Take, Route, Frequency, Duration) Notes Start Date End Date Status Clopidogrel Bisulfate 75 MG 1 tablet Ora lly Once a day Active CPAP Supplies -- Mask and Tubing Active Lisinopril 20 MG 1 tablet Orally Once a day Active Diclofenac Sodium 75 MG 1 tablet as need ed Orally Twice a day for 90 days Active Chlorthalidone 25 MG 1 tablet orally onc e daily Active Ozempic (0.25 or 0.5 MG/DOSE) 2 MG/3ML 0.25 mg Subcutaneous weekly for 28 days 07/18/2024 Active Liothyronine Sodium 5 MCG 2 tablet on an empty stomach Orally Once a day for 30 days 05/16/2025 Active Vancomycin HCl 125 MG 1 capsule Orally q id for 10 days 05/18/2025 Active Fenofibrate 145 mg TAKE 1 TABLET DAILY Active Dupixent 300 MG/2ML as directed Subcutan eous every other week Active Carvedilol 25 mg TAKE 1/2 TABLET TWIC E A DAY Active CPAP Supplies -- Use mask and tubing via CPAP machine every evening for 90 days 12/07/2023 Active Atorvastatin Calcium 80 MG 1 tablet Oral ly Once a day Active Furosemide 20 MG 1/2 tab Orally Once a day Active Hyoscyamine Sulfate 0.125 MG 1-2 tabs SL SL every 4 hrs PRN abd pain 05/14/2025 Active Cardura 4 MG 1 tablet Orally Once a day for 90 days Active Hyoscyamine Sulfate 0.125 MG 1-2 tabs SL SL every 4 hrs PRN abd pain 04/16/2025 Active Aspirin Adult Low Dose 81 MG 1 tablet Orally Once a day Active FeroSul 325 (65 Fe) MG TAKE 1 TABLET TWICE A DAY Active Viagra 100 MG 1 tablet as needed O rally Once a day for 30 day(s) 05/14/2025 Active Vancomycin HCl 125 MG 1 capsule Orally q id for 10 days 05/19/2025 Active Immunizations Vaccine Route Administration Date Status Comme nts SARS-COV-2 (COVID 19 Moderna - Booster 0.25mL) Unknown 10/25/2021 Administered Tdap (Boostrix) Unknown 04/30/2019 Administered Social History Tobacco Use: Social History Observation Description Date Details (start date - stop date) Former Smoker NA - NA Tobacco Use/Smoking Question Answer Notes Patient is a former smoker How long has it been since y ou last smoked? 5-10 years Additional Findings: Tobacco Non-User Ex-heavy c igarette smoker (20-30/day) Alcohol Screen (Audit-C) Question Answer Notes Did you have a drink containing alcohol in the p ast year? No Points 0 Interpretation Negative AUDIT-C (Standard) Question Answer Notes Did you have a drink containing alcohol in the p ast year? No Points 0 Interpretation Negative Problems Problem Type SNOMED Code ICD Code Onset Dates Problem Status W/U Status Risk Notes Problem 646753973 Morbid (severe) obesity due to excess calories (E66.01) Active confirmed Problem Hypermetropia (79162823) Hypermetropia, bilateral (H52.03) Active confirmed Problem Presbyopia (84591088) Presbyopia (H52.4) Active confirmed Problem Sudden visual loss (43483351) Sudden visual loss, right eye (H53.131) Active confirmed Problem Centrilobular emphysema (40084538) Centrilobular emphysema (J43.2) Active confirmed Problem Uncomplicated moderate persistent asthma (376230986) Moderate persistent asthma, uncomplicated (J45.40) Active confirmed Problem 39707616 Other specified dermatitis (L30.8) Active confirmed Problem Joint pain (55839882) Pain in un specified joint (M25.50) Active confirmed Problem Localized swelli ng, mass and lump, right lower limb (R22.41) Active confirmed Problem 07479017 Angioneurotic edema, initial encounter (T78.3XXA) Active confirmed Problem Long-term current us e of inhaled steroid (443619748) correction (current) use of inhaled steroids (Z79.51) Active confirmed Problem Chest pain (04634898) Chest pain (R07.9) Active confirmed Problem Hypertension (26078297) Hypertension (I10) Active confirmed Problem Male hypogonadism (49020138) Hypogonadism male (E29.1) Active confirmed Problem Cervical radiculopathy (22488581) Cervical radiculopathy (M54.12) Active confirmed Problem Hypothyroidism (93399307) Hypothyroidism (E03.9) Active confirmed Problem Coronary artery disease (81666100) Coronary artery disease (I25.10) Active confirmed Problem Dyspnea (400024048) Dyspnea (R06.00) Active con firmed Problem Sleep apnea (43542348) Sleep apnea (G47.30) Active confirmed Problem Obstructive sleep apnea (82951461) Obstructive sleep apnea (G47.33) Active confirmed Problem Malaise (436098176) Malaise (R53.81) Active con firmed Problem 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 Problem Hypertriglyceridemia (300037287) Hypertriglyceridemi a (E78.1) Active confirmed Problem Arthralgia (30703474) Arthralgia (M25.50) Active confirmed Problem Well adult (307798734) Well adult (Z00.00) Active confirmed Problem Irritable bowel syndrome (33839898) Irritable bowel syndrome (K58.9) Active confirmed Problem Cervical disc diseas e (800753480) Cervical disc disease (M50.90) Active confirmed Problem Near syncope (757175829) Near syncope (R55) Active confirmed Problem Overweight (578729251) Over weight (E66.3) Active confirmed Problem Essential tremor (493110759) Benign essential tremor (G25.0) Active confirmed Problem Increased immunoglobulin (396571397) Elevated IgE level (R76.8) Active confirmed Problem Ex-tobacco user (finding) (008471698) History of tobacco abuse (Z87.891) Active confirmed 27 pack-yea r history Problem Mass of neck (248431511) Mass in neck (R22.1) Active confirmed Problem Umbilical hernia (716436720) Hernia, umbilical (K42.9) Active confirmed Problem Chronic obstructive pulmonary disease (53744945) COPD, moderate (J44.9) Active confirmed Problem Acute exacerbation o f chronic obstructive airways disease (517734648) Acute exacerbation of chronic obstructive airways disease (J44.1) Active confirmed Problem Otitis media (15080500) Unspecified otitis media (H66.90) Active confirmed Problem Hypertensive retinopathy (1421793) Hypertensive retinopathy (H35.039) Active confirmed Problem Essential hypertension (46726107) Essential Hypertension (I10) Active confirmed Problem Carpal tunnel syndrome (29844700) Carpal tunnel syndrome, bilateral upper limbs (G56.03) Active confirmed Problem History of headache (480825191) H/O headache (Z87.898) Active confirmed Problem Secondary pulmonary hypertension (58882353) Other secondary pulmonary hypertension (I27.29) Active confirmed Problem Disorder of pharynx (63187863) Disorder of pharynx (J39.2) Active confirmed Problem Oropharyngeal lesion (90650449082499) Oropharyngeal lesion (J39.2) Active confirmed Problem History of COVID-19 (414626350174102799) History of COVID-19 (Z86.16) Active confirmed 06/11/2022 Problem Low back pain (866915128) Low back pain, unspecified (M54.50) Active confirmed Vital Signs Temperature 99.0 degrees Fahrenheit 04/10/2025 Blood pressure diastolic 62 mm Hg 05/22/2025 Height 67 in 05/22/2025 Blood pressure systolic 118 mm Hg 05/22/2025 Weight 253 lbs 05/14/2025 BMI 39.62 kg/m2 05/14/2025 Encounters Encounter Location Date Provider Diagnosis [facility] [address] [place] [address] 04/10/2025 Joe Hoy Acute bronchitis, unspecified organism J20.9 [facility] [address] [place] [address] 05/22/2025 Joe Hoy Hypertension I10 [facility] [address] [place] [address] 07/18/2024 Joe Hoy Cervical radiculopat hy M54.12 ; Insulin resistance complicating O26.899 and Insulin resistance, unspecified E88.819 [facility] [address] [place] [address] 05/14/2025 Joe Hoy Gastroenteritis K52. 9 [facility] [address] [place] [address] 05/18/2025 Joe Hoy [facility] [address] [place] [address] 05/18/2025 Joe Hoy [facility] [address] [place] [address] 05/18/2025 Joe Hoy [facility] [address] [place] [address] 05/21/2025 Joe Hoy [facility] [address] [place] [address] 05/22/2025 Joe Mack [facility] [address] [facility] [address] 05/24/2025 Joe Mack [facility] [address] [place] [address] 07/31/2024 Joe Prietoy [facility] [address] [place] [address] 08/05/2024 Joe Mack [facility] [address] [place] [facility] [address] 04/16/2025 Joe herman [facility] [address] [facility] [address] 04/16/2025 Joe Mack [facility] [address] [place] [facility] [place] [address] 04/24/2025 Joe Mack [facility] [address] [facility] [address] 05/15/2025 Joe Hoy Hypothyroidism E03.9 [facility] [address] [facility] [address] 07/10/2024 Joe Hoy Cervical pain M54.2 [place] [address] [facility] [address] 07/11/2024 Joe Hoy Cervical disc diseas e M50.90 Assessments Encounter Date Diagnosis (ICD Code) Assessment Notes Treatment Notes Treatment Clinical Notes Section Notes 07/18/2024 Cervical radiculopathy (ICD-10 - M54.12) 07/18/2024 Insulin resistance complicating (ICD-10 - O26.899) 04/10/2025 Acute bronchitis, unspecified organism (ICD-10 - J20.9) Rest and drink more liquids, especially water. You may use a humidifier or vaporizer to help keep the drainage moist. Uheh-iur-mrpvmfu Nasal Saline may help the stuffy and runny nose. Use Ibuprofen and or Tylenol as needed for fever, chills, body aches or pain. Children 5 years old should not be given ljaf-qcm-lzmgjim cough and cold medications such as guaifenesin and dextromethorphan. If you're over age 5, you may try nhhp-lpw-wrcumpl cold medications such as guaifenesin and dextromethorphan, or multi-symptom cold reliever such as Dayquil to help reduce the symptoms. Antibiotics have been prescribed. You should take these until completed and follow the directions. Antibiotics can sometimes cause upset stomach, and in rare cases, serious allergic reactions or serious gastrointestinal problems. If you start having severe abdominal pain, severe vomiting, or bloody diarrhea, you should be reevaluated by your physician or urgent care immediately. Follow up with your Primary Care Provider or return to clinic if symptoms do not improve within 3-5 days. If you develop severe symptoms such as shortness of breath, repeated vomiting, coughing up blood, or chest pain you should go to the emergency room or call 911 05/14/2025 Gastroenteritis (ICD-10 - K52.9) Get plenty of rest. Stay hydrated by sucking on ice chips or taking small sips of water. You can also try drinking clear soda, clear broths or noncaffeinated sports drinks. Stop eating solid foods for a few hours to let your stomach settle. East back into eating by eating bland, fmru-oj-otihli foods like crackers, toast, gelatin, bananas, rice and chicken. Try to avoid foods/substances including dairy products, caffeine, alcohol, nicotine and fatty or highly seasoned foods. Medications such as ibuprofen or tylenol can make your stomach more upset, so use sparingly if at all. Also avoid tjnn-fiq-divwnxu anti-diarrheal medications because it can make it harder for your body to eliminate the virus. 05/22/2025 Hypertension (ICD-10 - I10) 07/10/2024 Cervical pain (ICD-10 - M54.2) 07/11/2024 Cervical disc disease (ICD-10 - M50.90) 05/15/2025 Hypothyroidism (ICD-10 - E03.9) 07/18/2024 Insulin resistance, unspecified (ICD-10 - E88.819) Plan Of Treatment Pending Test Test Name Order Date CMP (COMPLETE METABOLIC PANEL) CULTURE, STOOL 05/14/2025 HEMOGLOBIN A1C (GLYCO) 04/08/2024 INSULIN, TOTAL 04/08/2024 LIPID PANEL (CHOL/TRIG/HDL/LDL) 04/08/20 24 CBC WITH DIFF 04/08/2024 BMP w/GFR 04/15/2024 CARDIO Stress Test - Lexiscan Nuclear C DIFF TOX PCR STOOL 05/14/2025 PSA, TOTAL 05/14/2025 PSA, TOTAL 04/08/2024 MRI CSPINE WO CON 07/18/2024 MRI CSPINE WO CON 07/10/2024 THYROID PANEL (T4/TSH/FREE T3) 5 THYROID PANEL (T4/TSH/FREE T3) 5 THYROID PANEL (T4/TSH/FREE T3) 4 Insurance Providers Payer Name Payer Address Payer Phone Subscriber Number Group Number Insured Name Patient Relationship to Insured Coverage Start Date Coverage End Date MMO [employer] [address] [place] [address] [id number] Kayla Grigsby Spouse - patient is the spouse of the insured Medications Administered Medication Instructions Date of Administration Dosage Notes Diazalog-40 03/08/2023 120 mg 120 Medical (General) History Medical History History ICD Code Hypertriglyceridemia E78.1 Irritable bowel syndrome K58.9 Carpal tunnel syndrome, bilateral upper limbs G56.03 Hypogonadism male E29.1 Localized swelling, mass and lump, right lower limb R22.41 Benign essential tremor G25.0 Arthralgia M25.50 Oropharyngeal lesion J39.2 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 Near syncope R55 Disorder of pharynx J39.2 Mass in neck R22.1 Hypertensive retinopathy H35.039 Hypermetropia, bilateral H52.03 Presbyopia H52.4 Hernia, umbilical K42.9 Essential Hypertension I10 Centrilobular emphysema J43.2 Coronary artery disease I25.10 Elevated IgE level R76.8 History of COVID-19 Z86.16 History of tobacco abuse Z87.891 Moderate persistent asthma, uncomplicate d J45.40 Obstructive sleep apnea G47.33 Other secondary pulmonary hypertension I 27.29 correction (current) use of inhaled stero ids Z79.51 Surgical History Surgery Date(Month/Year) torn meniscus repair bilat bilat rotator cuff repair hernia repair
--- OUTSIDE RECORDS SUMMARY | 2025-06-10 16:03 | XMS_ITS | Encounter Summary ---
Author Organization [facility] Address [address] [place] [address] Care Team Providers Care Snow Shoveler Name Role Phone Chris Martinez MD Primary Care Provider [phone] Ben Jose MD Primary Care Provider [phone] Reason for Visit * Reason Comments Med Refill Encounter Details Date Type Department Care Team (Late st Contact Info) Description 09/29/2022 Refill [facility] Cardiology [address] [place] [phone] Alexus Mcarthur, WATER MAIN PIPE LAYER [address] [place] [address] Social History Tobacco Use Types [...] Heterosexual or Straight 05/08 3:27 PM EDT COVID-19 Exposure Response Date Recorded In the last 10 days, have yo u been in contact with someone who was confirmed or suspected to have Coronavirus/COVID-19? No / Unsure 09/23/2022 2:55 PM EST documented as of this encounter Plan of Treatment Upcoming Encounters Date Type Department Care Team (Late st Contact Info) Description 06/12/2025 12:30 PM EDT Hospital Encounter [facility] Heart [facility] Vascular [place] [facility] [address] [place] [address] Arturo Yu MD [address] [facility] [address] [place] [address] Chest pain, unspecified type; VILLAVICENCIO (dyspnea on exertion) 06/12/2025 12:30 PM EDT - 06/12/2025 1:45 PM EDT Surgery [facility] Heart [facility] Vascular [place] [facility] [address] [place] [address] Arturo Yu MD [address] [facility] 1 [place] [address] Coronary angiography Scheduled Procedures Name Priority Associated Diagnoses Date/Ti me RIGHT HEART CATH VILLAVICENCIO (dyspnea on exertion) documented as of this encounter Visit Diagnoses Not on filedocumented in this encounter Care Teams Snow Shoveler Relationship Specialty Start Date End Date Chris Martinez MD [address] [place] [address] [address] [place] [address] PCP - General 07/28/22 11/14/22 Ben Jose MD [address] [facility] [facility] [place] [address] PCP - General 11/15/22 documented as of this encounter
--- OUTSIDE RECORDS SUMMARY | 2025-06-10 16:03 | XMS_ITS | Encounter Summary ---
Author Organization [facility] Address [address] [place] [address] Care Team Providers Care Charger Name Role Phone Ben Jose MD Primary Care Provider [phone] Encounter Details Date Type Department Care Team (Latest Contact Info) Description 06/09/2025 Travel Social History Tobacco Use Types Packs/Day Years Used Date Smoking Tobacco: Former Cigarettes 2011 Passive Smoke Exposure: Past Smokeless Tobacco: Former Quit: 2001 Alcohol Use Standard Drinks/Week Comments Not Currently 0 (1 standard drink = 0.6 oz pur e alcohol) MA Safety & Environment Answer Date Rec orded [...] Description 06/12/2025 12:30 PM EDT Hospital Encounter [facility] Lab [address] [place] [phone] Arturo Yu MD [address] [facility] [address] [facility] [place] [address] Chest pain, unspecified type; VILLAVICENCIO (dyspnea on exertion) 06/12/2025 12:30 PM EDT - 06/12/2025 1:45 PM EDT Surgery [facility] [address] [place] [phone] Arturo Yu MD [address] [facility] [address] [facility] [place] [address] Coronary angiography Scheduled Procedures Name Priority Associated Diagnoses Date/Ti me RIGHT HEART CATH VILLAVICENCIO (dyspnea on exertion) documented as of this encounter Visit Diagnoses Not on filedocumented in this encounter Care Teams Charger Relationship Specialty Start Date End Date Ben Jose MD [address] [facility] [address] [address] PCP - General 11/15/22 documented as of this encounter
--- OUTSIDE RECORDS SUMMARY | 2025-06-10 16:03 | XMS_ITS | Clinical Summary ---
Author Organization [facility] Address [address] [place] [address] Care Team Providers Care Software Design Engineer Name Role Phone Ben Jose MD Primary Care Provider [phone] Allergies No known active allergies Medications carvedilol (Coreg) 12.5 mg tablet Take 12.5 mg by mouth with breakfast and with evening meal. Active doxazosin (Cardura) 4 mg tablet Take 4 mg by mouth at bedtime. Active fenofibrate (Tricor) 145 mg tablet Take 145 mg by mouth in the morning. Active aspirin 81 mg chewable tabletIndication s:CAD in [place] artery CHEW AND SWALLOW 1 TABLET IN THE MORNING 90 tablet 3 3 Active diclofenac (Voltaren) 50 mg EC tablet Take 50 mg by mouth twice a day. Active FeroSuL 325 mg (65 mg iron) tablet Take 1 tablet by mouth in the morning and at bedtime. 4 Active atorvastatin (Lipitor) 80 mg tabletIndication s:CAD in [place] artery TAKE 1 TABLET AT BEDTIME 90 tablet 3 4 Active clopidogrel (Plavix) 75 mg tabletIndication s:CAD in [place] artery TAKE 1 TABLET IN THE MORNING 90 tablet 3 4 Active lisinopril 20 mg tabletIndication s:Essential hypertension Take 1 tablet (20 mg) by mouth in the morning. 90 tablet 3 5 Active furosemide (Lasix) 40 mg tabletIndication s:Edema, unspecified type TAKE 1 TABLET IN THE MORNING 90 tablet 3 5 Active furosemide (Lasix) 20 mg tabletIndication s:Edema, unspecified type TAKE ONE-HALF (1/2) TABLET DAILY 45 tablet 3 4 06/05/20 25 Discontin ued(Med List Cleanup) dupilumab (Dupixent Pen) 300 mg/2 mL pen injector 4 06/06/20 25 Discontin ued(Med List Cleanup) Active Problems Problem Noted Date Diagnosed Date VILLAVICENCIO (dyspnea on exertion) 06/06/2025 Hypertensive retinopathy 04/18/2025 Umbilical hernia 04/18/2025 Degeneration of intervertebral disc of cervical region 10/07/2024 Other cervical disc displacement at C6-C7 level 10/07/2024 Radiculopathy, cervical region 10/07/2024 Spinal stenosis, cervical region 10/07/2024 Severe persistent asthma with acute exacerbation 11/23/2023 11/27/2023 Essential hypertension 08/04/2022 COPD (chronic obstructive pulmonary disease) S/P drug eluting coronary stent placement 2021 CAD in [place] artery 08/03/2022 Chest pain 07/14/2022 Overview (07/14/2022): Added automatically from request for surgery [id number] Dyspnea 06/07/2022 05/29/2023 Shortness of breath 11/22/2018 05/29/2023 Hyperplastic polyp of intestine 05/03/2017 05/29/2023 Encounters Date Type Department Care Team Description 06/09/2025 Travel 06/06/2025 Orders Only [facility] [address] [place] [address] Karime De Souza MA Encounter for pre-operative examination (Primary Dx); VILLAVICENCIO (dyspnea on exertion) 06/06/2025 Orders Only [facility] [address] [place] [address] Karime De Souza MA Chest pain, unspecified type (Primary Dx); VILLAVICENCIO (dyspnea on exertion) 06/05/2025 3:20 PM EDT Office Visit [facility] [address] [place] [address] Ivet Jane, NICHOLAS Coronary artery disease of [place] artery of [place] heart with stable angina pectoris (Primary Dx); Shortness of breath; History of coronary artery stent placement; VILLAVICENCIO (dyspnea on exertion); Mixed hyperlipidemia; Benign hypertensive heart disease without congestive heart failure; Pulmonary emphysema, unspecified emphysema type (CMS/HCC) 06/05/[address] [facility] [address] [place] [facility] [address] Karon Silvestre MA 05/05/[address] [facility] [address] [place] [facility] [place] [address] Ivet Jane CNP Edema, unspecified type 04/25/[address] [facility] [address] [place] [facility] [address] Damian Wright CNP 04/18/2025 3:20 PM EDT Office Visit [facility] [address] [place] [address] Damian Wright CNP Coronary artery disease involving [place] coronary artery of [place] heart without angina pectoris (Primary Dx); Primary hypertension; Mixed hyperlipidemia; Dyspnea on exertion from Last 3 Months Family History Medical History Relation Name Comments Coronary artery disease Father Heart failure Father Relation Name Status Comments Father Mother Social History Tobacco Use Types Packs/Day Years Used Date Smoking Tobacco: Former Cigarettes 2011 Passive Smoke Exposure: Past Smokeless Tobacco: Former Quit: 2001 Tobacco Cessation:Counseling Given: Not Answered Alcohol Use [...] Heterosexual or Straight 05/08 3:27 PM EDT Last Filed Vital Signs Vital Sign Reading Time Taken Comments Blood Pressure 124/84 06/05/2025 3:39 PM EDT Pulse 62 06/05/2025 3:39 PM EDT Temperature 36.8 C (98.2 F) 08/04/2022 8:00 AM EDT Respiratory Rate 19 08/04/2022 8:00 AM EDT Oxygen Saturation 96% 06/05/2025 3:39 PM EDT Inhaled Oxygen Concentration - - Weight 112 kg (247 lb) 06/05/2025 3:39 PM EDT Height 170.2 cm (5' 7 ) 06/05/2025 3:39 PM EDT Body Mass Index 38.69 06/05/2025 3:39 PM EDT Plan of Treatment Upcoming Encounters Date Type Department Care Team (Late st Contact Info) Description 06/12/2025 12:30 PM EDT Hospital Encounter [facility] Lab [address] [place] [phone] Arturo Yu MD [address] [place] [address] Chest pain, unspecified type; VILLAVICENCIO (dyspnea on exertion) 06/12/2025 12:30 PM EDT - 06/12/2025 1:45 PM EDT Surgery [facility] Lab [address] [place] [address] Arturo Yu MD [address] [place] [address] Coronary angiography Scheduled Procedures Name Priority Associated Diagnoses Date/Ti me RIGHT HEART CATH VILLAVICENCIO (dyspnea on exertion) Health Maintenance Due Date Last Done Comments CT Colonography 1963 Colonoscopy 1963 Colorectal Cancer Screening 1965 FIT-DNA 1965 FIT 1965 FOBT 1965 Sigmoidoscopy 1963 Depression Screening 1975 Pneumococcal Vaccine: Pediatrics (0 to 5 Years) and At-Risk Patients (6 to 64 Years) (1 of 2 - PCV) 1982 Zoster Vaccines (1 of 2) 2013 COVID-19 Vaccine (4 - season) 2024 10/25/2021, 02/16/2021, 01/19/2021 Influenza Vaccine (#1) 2025 Adult Tetanus 04/30/2029 04/30/2019, 04/06, 05/15/2013, Additional history exists HIB Vaccines Aged Out No longer eligi ble based on patient's age to complete this topic HPV Vaccines Aged Out No longer eligi ble based on patient's age to complete this topic IPV Vaccines Aged Out No longer eligi ble based on patient's age to complete this topic Meningococcal B Vaccine Aged Out No l onger eligible based on patient's age to complete this topic Meningococcal Vaccine Aged Out No neil kelsey eligible based on patient's age to complete this topic Rotavirus Vaccines Aged Out No longer eligible based on patient's age to complete this topic Medical Devices Implanted Type Area Coater Associate Device Identifier Shelf Expiration Date Model / Serial / Lot Stent,Synergy Mr 3.50 X 38 - [id number] Implanted:Qty: 1 on 08/03/2022 by Justino Serna MD at [facility] Drug Eluting Stent [employer] [id number] 04/12/2024 [id number] / / [id number] Procedures Procedure Name Priority Date/Time Associated Diagnosis Comments ECG 12 LEAD UNIT PERFORMED Routine 06/05/2025 3:32 PM EDT Shortness of breath LIPID PANEL Routine 04/24/2025 8:30 AM EDT COMPREHENSIVE METABOLIC PANEL Routine 04/24/2025 8:30 AM EDT CBC Routine 04/24/2025 8:30 AM EDT from Last 3 Months Results * ECG 12 lead unit performed (06/05/2025 3:32 PM EDT) Ivet Jane [facility] ECG ORDERABLES Final Result * CBC (04/24/2025 8:30 AM EDT) Blood Venous blood specimen / Unknown us Damian Wright [facility] LAB BLOOD ORDERABLES Final Resul t * Lipid panel (04/24/2025 8:30 AM EDT) Blood Venous blood specimen / Unknown us Damian Wright [facility] BLOOD ORDERABLES Final Resul t * Comprehensive metabolic panel (04/24/2025 8:30 AM EDT) Blood Venous blood specimen / Unknown Damian Wright [facility] BLOOD ORDERABLES Final Resul t from Last 3 Months Insurance [employer] Advance Directives * Full Code (Latest Code Status on File) Date Activated Date Inactivated Comments 08/03/2022 12:28 PM 08/04/2022 1:04 PM Care Teams Software Design Engineer Relationship Specialty Start Date End Date Ben Jose MD [address] [facility] [address] [address] PCP - General 11/15/22
--- OUTSIDE RECORDS SUMMARY | 2025-06-10 16:03 | XMS_ITS | Encounter Summary ---
Author Organization [facility] Address [address] [place] [address] Care Team Providers Care Fire Equipment Repairer Inspector Name Role Phone Ben Jose MD Primary Care Provider [phone] Reason for Visit * Reason Comments Med Refill Encounter Details Date Type Department Care Team (Late st Contact Info) Description 02/10/2025 [facility]ill [facility] [address] [place] [address] Cesar Dunham MD [address] [place] [address] Severe persistent asthma with (acute) exacerbation (HCC) Social History Tobacco Use Types Packs/Day Years Used Date Smoking Tobacco: Former Cigarettes 0 12/11/1986 - 10/27/2011 Smokeless Tobacco: Former Snuff Quit: 12/11/1994 Alcohol Use Standard Drinks/Week Comments Not Currently 0 (1 standard drink = 0.6 oz pure alcohol) Caffeine intake: >4 cups per day Sex and Gender Information Value Date Recorded Sex Assigned at Male 06/05/2023 3:46 PM EDT Legal Sex Male 7:06 PM EDT Gender Identity Male 06/05/2023 3:46 PM EDT Sexual Orientation Not on file documented as of this encounter Plan of Treatment Upcoming Encounters Date Type Department Care Team (Late st Contact Info) Description 08/04/2025 4:00 PM EDT Office [facility] [address] [place] [address] Cesar Dunham MD [address] [place] [address] documented as of this encounter Visit Diagnoses Diagnosis Severe persistent asthma with (acute) exacerbation (HCC) documented in this encounter Care Teams Fire Equipment Repairer Inspector Relationship Specialty Start Date End Date Ben Jose MD [address] [place] [address] PCP - General 06/05/23 documented as of this encounter
[2025-06-10 16:43] LABS: Free T3 2.12 pg/mL (2.18-3.98); Thyroid Stimulating Hormone 1.644 uIU/mL (0.358-3.740)
== END 2025-06-10 16:00 | disposition home or self-care (01) ==
LOC: LAB 16:00
PROVIDERS: PCP Family Medicine; Visit Provider Family Medicine
DX: E03.9 Hypothyroidism, unspecified (principal)
CPT/HCPCS: 36415; 84436; 84443; 84481

== ENCOUNTER 2025-06-10 16:03 | Outpatient (OUT) | payer OTHER, SELFPAY ==
[2025-06-10 16:21] LABS: Hematocrit 34.2 % (42.0-54.0); Hemoglobin 11.4 g/dL (14.0-18.0); Immature Granulocytes Abs Auto 0.01 10^3/uL (0.00-0.03); Immature Granulocytes Pct Auto 0.2 % (0.0-0.5); Lymphocytes Absolute Auto 2.2 10^3/uL (1.2-3.8); Mean Corpuscular HGB Conc 33.3 g/dL (29.9-35.2); Mean Corpuscular Hemoglobin 30.1 pg (25.9-34.0); Mean Corpuscular Volume 90.2 fL (80.0-94.0); Platelet Count 265 10^3/uL (150-450); Red Blood Count 3.79 10^6/uL (4.70-6.10); White Blood Count 5.8 10^3/uL (4.0-11.0)
[2025-06-10 16:26] LABS: Anion Gap 10.9; Blood Urea Nitrogen 22.0 mg/dL (7.0-18.0); Calcium 9.0 mg/dL (8.5-10.1); Carbon Dioxide 25.9 mmol/L (21.0-32.0); Chloride 108 mmol/L (98-107); Estimated GFR (African America >60 (>=60 mL/min/1.73m^2); Estimated GFR (Non-African Ame >60 (>=60 mL/min/1.73m^2); Glucose 106 mg/dL (74-106); Potassium 3.8 mmol/L (3.5-5.1); Sodium 141 mmol/L (136-145)
== END 2025-06-10 16:04 | disposition home or self-care (01) ==
PROVIDERS: PCP Family Medicine; Visit Provider Nurse Practitioner Family
DX: Z01.818 Encounter for other preprocedural examination (principal); E03.9 Hypothyroidism, unspecified
CPT/HCPCS: 36415; 80048; 84436; 84443; 84481; 85025

== ENCOUNTER 2025-06-25 15:42 | Outpatient (OUT) | payer OTHER, SELFPAY ==
--- OUTSIDE RECORDS SUMMARY | 2025-05-24 11:44 | XMS_ITS ---
Author Organization The [facility] in [place] Address [address] [place] [address] Care Team Providers Care Land Clearer Name Role Phone Joe Jose Primary Care Provider REASON FOR VISIT stool test Encounters Encounter Location Date Provider Diagnosis [facility] [address] [place] [address] 05/24/2025 Joe Jose Plan Of Treatment No Information Progress Notes * Sajan HUMPHREYS SDOB: [birth year] (59 yo M)Acc No.[id number]:05/24/2025 Patient: Peace Sajan MALIN :1965 A ge:59 Y S ex:Male Address:[address] [facility], [place] [address] * true * Date: Generated for Jassi doug/Fabenitag/eTransmitting on: 0 06/25/2025 03:47 PM EDT
--- OUTSIDE RECORDS SUMMARY | 2025-06-11 08:50 | XMS_ITS ---
Author Organization [facility] Address [address] [place] [address] Care Team Providers Care Photo Editor Name Role Phone Rebeca Joe Primary Care Provider [phone] Reason For Referral Diagnosis 1 Anemia (D64.9) Referral Organization [facility] Referring Provider First Name Joe Referring Provider Last Name Rebeca Referring Provider Speciality Family Med [place] Referred Provider Lee Hampton Referred Provider Specialty General Surg tylor Referral Priority Routine REASON FOR VISIT review labs Medications Medication SIG (Take, Route, Frequency, Duration) Notes Start Date End Date Status Liothyronine Sodium 5 MCG 3 tablet on an empty stomach Orally Once a day for 30 days 05/16/2025 Active Problems Problem Type SNOMED Code ICD Code Onset Dates Problem Status W/U Status Risk Notes Problem Anemia (787581393) Anemia (D64.9) Active confirmed Encounters Encounter Location Date Provider Diagnosis [facility] [address] [place] [address] 06/11/2025 Joe Jose Hypothyroidism E03.9 and Anemia D64.9 Assessments Encounter Date Diagnosis (ICD Code) Assessment Notes Treatment Notes Treatment Clinical Notes Section Notes 06/11/2025 Hypothyroidism (ICD-10 - E03.9) 06/11/2025 Anemia (ICD-10 - D64.9) Plan Of Treatment Medication Medication Name Sig Start Date Stop Date Notes Liothyronine Sodium 5 MCG 3 tablet on an empty stomach Orally Once a day for 30 days 05/16/2025 Pending Test Test Name Order Date THYROID PANEL (T4/TSH/FREE T3) 5 Referrals Referral Date Details 06/12/2025 06/12/2025, Lee Hampton Progress Notes * Sajan GRIGSBY SDOB: [birth year] (59 yo M)Acc No.[id number]:06/11/2025 Patient: Sajan MARTIN :1965 A ge:59 Y S ex:Male Address:[address] [place] [id number] * Refills Refill Liothyronine Sodium Tablet, 5 MCG, Orally, 90 Tablet, 3 tablet on an empty stomach, Once a day, 30 days, Refills=1 Subjective: * Chief Complaints: * R eview labs * Medical History: * Surgical History: * Hospitalization/Major Diagno stic Procedure: * Medications: Objective: * Vitals: * Physical Examination: Assessment: * Assessment: 1. H ypothyroidism - E03.9 (Primary) 2 . A nemia - D64.9 Plan: * Treatment: 2. A nemia Referral To:Lee Hampton General Surgery Reason: 3. O thers Refill Liothyronine Sodium Tablet, 5 MCG, 3 tablet on an empty stomach, Orally, Once a day, 30 days, 90 Tablet, Refills 1. * Procedure Codes: * true * Date: Generated for Jose Eduardo camacho/Juan/Josesmitting on: 0 06/25/2025 03:47 PM EDT Consultation Request Notes Referral Date Referring Provider Referred Provider Not es 06/12/2025 Joe Jose Michael
--- OUTSIDE RECORDS SUMMARY | 2025-06-12 10:51 | XMS_ITS | Encounter Summary ---
Author Organization [facility] Address [address] [place] [address] Care Team Providers Care On Site Wastewater Systems Technician Name Role Phone Ben Jose MD Primary Care Provider [phone] Reason for Referral * Consultation (Routine) - Pending Review Specialty Diagnoses / Procedures Referred By Contact Referred To Contact Cardiopulmonary Rehab / CardioPulmonary Rehab Diagnoses CAD in [place] artery Procedures [place] OFFICE/OUTPATIENT [facility] 60 MINUTES Arturo Yu MD [address] [facility] [place] [address] Phone: tel: fax: [facility] [address] [place] [address] [place] [address] Phone: tel:[phone] fax:[phone] Referral ID Status Reason Start Date Expiration Date Visits Requested Visits Authorized [id number] Pending Review Specialty Services Required 06/12/2025 06/12/2026 1 1 * (Routine) - Pending Review Specialty Diagnoses / Procedures Referred By Contac t Referred To Contact Procedures Electrocardiogram, 12-lead Arturo Yu MD [address] [facility] [place] [address] Phone: tel: fax: Referral ID Status Reason Start Date Expiration Date V isits Requested Visits Authorized [id number] Pending Review 06/12/2025 06/12/2026 1 1 Reason for Visit * Auth/Cert (Routine) Specialty Diagnoses / Procedures Referred By Contac t Referred To Contact Diagnoses Chest pain, unspecified type VILLAVICENCIO (dyspnea on exertion) Chest pain, unspecified type [R07.9] VILLAVICENCIO (dyspnea on exertion) [R06.09] Procedures [place] RIGHT HEART CATH O2 SATURATION & CARDIAC OUTPUT [place] CATH PLMT R HRT & ARTS W/NJX & ANGIO IMG S&I Coronary angiography Right heart cath Arturo Yu MD [address] [place] [address] Phone: tel: fax: [facility] [address] [place] [address] Phone: tel: fax: Referral ID Status Reason Start Date Expiration Date Visits Re quested Visits Authorized [id number] 1 1 Encounter Details Date Type Department Care Team (Late st Contact Info) Description 06/12/2025 10:51 AM EDT - 06/12/2025 3:50 PM EDT Hospital Encounter [facility] [address] [place] [address] Arturo Yu MD [address] [place] [address] CAD in [place] artery (Primary Dx); Chest pain, unspecified type; VILLAVICENCIO (dyspnea on exertion) Discharge Disposition: Home or Self Care () Social History Tobacco Use Types Packs/Day Years Used Date Smoking Tobacco: Former Cigarettes 2011 Passive Smoke Exposure: Past Smokeless Tobacco: Former Quit: 2001 Alcohol Use Standard Drinks/Week Comments Not Currently 0 (1 standard drink = 0.6 oz pur e alcohol) [place] Safety [employer] Environment Answer Date Rec orded [...] Sign Reading Time Taken Comments Blood Pressure 116/78 06/12/2025 3:45 PM EDT Pulse 58 06/12/2025 3:45 PM EDT Temperature - - Respiratory Rate 20 06/12/2025 3:45 PM EDT Oxygen Saturation 96% 06/12/2025 3:45 PM EDT Inhaled Oxygen Concentration - - Weight - - Height - - Body Mass Index - - documented in this encounter Discharge Instructions * Attachments The following attachments cannot be sent through Care Everywhere. * Angiogram Care After [id number] (Guyanese) * Moderate Conscious Sedation Adult Care After (Guyanese) documented in this encounter Medications at Time of Discharge aspirin 81 mg chewable tabletIndications: CAD in [place] artery CHEW AND SWALLOW 1 TABLET IN THE MORNING 90 tablet 3 09/06/2023 atorvastatin (Lipitor) 80 mg tabletIndications: CAD in [place] artery TAKE 1 TABLET AT BEDTIME 90 tablet 3 09/02/2024 carvedilol (Coreg) 12.5 mg tablet Take 12.5 mg by mouth with breakfast and with evening meal. clopidogrel (Plavix) 75 mg tabletIndications: CAD in [place] artery TAKE 1 TABLET IN THE MORNING 90 tablet 3 09/02/2024 diclofenac (Voltaren) 50 mg EC tablet Take 50 mg by mouth twice a day. doxazosin (Cardura) 4 mg tablet Take 4 mg by mouth at bedtime. fenofibrate (Tricor) 145 mg tablet Take 145 mg by mouth in the morning. FeroSuL 325 mg (65 mg iron) tablet Take 1 tablet by mouth in the morning and at bedtime. 04/17/2024 furosemide (Lasix) 40 mg tabletIndications: Edema, unspecified type TAKE 1 TABLET IN THE MORNING 90 tablet 3 05/05/2025 liothyronine (Cytomel) 5 mcg tablet Take 15 mcg by mouth in the morning. 06/11/2025 lisinopril 20 mg tabletIndications: Essential hypertension Take 1 tablet (20 mg) by mouth in the morning. 90 tablet 3 11/15/2024 documented as of this encounter H&P Notes * Barbara Abrams MD - 06/12/2025 11:34 AM EDT H&P reviewed. The patient was examined and there are no changes to the H&P. Will proceed with coronary angiography and right heart catheterization for further evaluation of his symptoms. Consent for blood products obtained. Risks, benefits, and alternatives to procedure discussed with patient in detail who expressed understanding and agreed to proceed. Cosigned by Arturo Yu MD at 06/12/2025 11:37 AM EDT Source Note - Ivet Jane CNP - 06/05/2025 3:20 PM EDT Images from the original note were not included. Cardiovascular Medicine [facility] SUBJECTIVE Chief Complaint Patient presents with [...] and chest pain with exertion. He cannot picking tech his grandchildren or get up into his [...] Problem List Diagnosis Chest pain CAD in [place] artery Essential hypertension COPD (chronic obstructive pulmonary disease) (CMS/[facility]) S/P drug eluting coronary stent placement Hyperplastic polyp of intestine Dyspnea Shortness of breath Severe persistent asthma with acute exacerbation (CMS/HCC) Degeneration of intervertebral disc of cervical region Other cervical disc displacement at C6-C7 level Radiculopathy, cervical region Spinal stenosis, cervical region Hypertensive retinopathy Umbilical hernia VILLAVICENCIO (dyspnea on exertion) Past Medical History: Diagnosis Date COPD (chronic obstructive pulmonary disease) (CMS/HCC) Coronary artery disease Hyperlipidemia Hypertension Sleep apnea [...] Final Atrial Rate 08/03/2022 53 BPM Final OH Interval 08/03/2022 164 ms Final QRS DURATION 08/03/2022 100 ms Final QT Interval 08/03/2022 424 ms Final QTC CALCULATION(BAZETT) 08/03/2022 397 ms Final P [place] 08/03/2022 39 degrees Final R-[place] 08/03/2022 -7 degrees Final T Wave [place] 08/03/2022 51 degrees Final Auto WBC [...] Final Atrial Rate 08/03/2022 50 BPM Final [place] Interval 08/03/2022 170 ms Final QRS DURATION 08/03/2022 104 ms Final QT Interval 08/03/2022 436 ms Final QTC CALCULATION(BAZETT) 08/03/2022 397 ms Final P [place] 08/03/2022 50 degrees Final R-[place] 08/03/2022 4 degrees Final T Wave [place] 08/03/2022 7 degrees Final Ventricular Rate 08/03/2022 49 BPM Final Atrial Rate 08/03/2022 49 BPM Final OH Interval 08/03/2022 166 ms Final QRS DURATION 08/03/2022 106 ms Final QT Interval 08/03/2022 428 ms Final QTC CALCULATION(BAZETT) 08/03/2022 386 ms Final P [place] 08/03/2022 50 degrees Final R-[place] 08/03/2022 0 degrees Final T Wave [place] 08/03/2022 44 degrees Final Sodium 08/04/2022 [...] 5. Follow-up with Dr. Serna in the [facility] in the next 2 to 4 weeks [...] dissection ASSESSMENT/PLAN: 1. Coronary artery disease of [place] of [place] heart with stable angina pectoris 2. Shortness [...] UTP Cardiovascular Medicine documented in this encounter Nursing Notes * Karyn Parks RN - 06/12/2025 3:47 PM EDT RN educated pt on d/c instructions. This included: site care, limited physical activity, resume normal diet, future appointments, medications, and moderate sedation instructions. RN educated pt on when to notify physician and when to go to the hospital. RN provided pt with arm sling and educated pt on importance of not using arm for 24 hours for radial sites. RN encouraged pt to voice any questions or concerns, and answered any questions or concerns if pt verbalized. Pt was wheeled off of unit with all of belongings. documented in this encounter Miscellaneous Notes * Pre-Sedation Documentation - Barbara Abrams MD - 06/12/2025 11:34 AM EDT Patient: Sajan Humphreys Pre-sedation Evaluation: Moderate sedation History of Present Illness: Patient here for coronary angiography and right heart cath Medical History[1] Principle problems: Patient Active Problem List Diagnosis Date Noted Hypertensive retinopathy 04/18/2025 Umbilical hernia 04/18/2025 Degeneration of intervertebral disc of cervical region 10/07/2024 Other cervical disc displacement at C6-C7 level 10/07/2024 Radiculopathy, cervical region 10/07/2024 Spinal stenosis, cervical region 10/07/2024 Severe persistent asthma with acute exacerbation ([facility]) 11/23/2023 Essential hypertension 08/04/2022 COPD (chronic obstructive pulmonary disease) (CMS/[facility]) 08/04/2022 S/P drug eluting coronary stent placement 08/04/2022 CAD in [place] artery 08/03/2022 Dyspnea 06/07/2022 Shortness of breath 11/22/2018 Hyperplastic polyp of intestine 05/03/2017 VILLAVICENCIO (dyspnea on exertion) 06/06/2025 Chest pain 07/14/2022 Allergies: Allergies[2] STAFF INTERNIST OFFICE BASED ONLY/Current Medications: Prescriptions Prior to Admission[3] Current Medications[4] Past Surgical History: has a past surgical history that includes Cardiac catheterization (Left, 05/15/2014) and Cardiac catheterization. Recent sedation/surgery (24 hours) No Review of Systems: Please check all that apply: Cardiac Disease NPO guidelines met: Yes Physical Exam Airway Mallampati: III Cardiovascular Rhythm: regular Rate: normal (-) murmur, peripheral edema Dental Pulmonary (+) wheezes Plan ASA 3 Moderate Consent for blood products obtained. Risks, benefits, and alternatives to procedure discussed with patient in detail who expressed understanding and agreed to proceed. 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 06/12/2025 clopidogrel (Plavix) 75 mg tablet TAKE 1 TABLET IN THE MORNING 90 tablet 3 06/12/2025 diclofenac (Voltaren) 50 mg EC tablet Take 50 mg by mouth twice a day. 06/12/2025 doxazosin (Cardura) 4 mg tablet Take 4 mg by mouth at bedtime. 06/12/2025 fenofibrate (Tricor) 145 mg tablet Take 145 mg by mouth in the morning. 06/12/2025 FeroSuL 325 mg (65 mg iron) tablet Take 1 tablet by mouth in the morning and at bedtime. 06/12/2025 furosemide (Lasix) 40 mg tablet TAKE 1 TABLET IN THE MORNING 90 tablet 3 06/12/2025 liothyronine (Cytomel) 5 mcg tablet Take 15 mcg by mouth in the morning. 06/11/2025 lisinopril 20 mg tablet Take 1 tablet (20 mg) by mouth in the morning. 90 tablet 3 06/12/2025 [4] No current facility-administered medications for this encounter. Cosigned by Arturo Yu MD at 06/12/2025 11:38 AM EDT documented in this encounter Plan of Treatment Upcoming Encounters Date Type Department Care Team (Late st Contact Info) Description 07/10/2025 1:40 PM EDT Follow-Up [facility] [address] [place] [address] Ivet Jane, SHEARER OPERATOR [address] [place] [address] Scheduled Referrals Name Type Priority Associated Diagnoses Order Schedule Ambulatory referral to Cardiac Rehab Outpatient Referral Routine CAD in [place] artery Expected: 06/12/2025 (Approximate), Expires: 12/13/2025 documented as of this encounter Procedures Procedure Name Priority Date/Time Associated Diagnosis Comments RIGHT HEART CATH Routine 06/12/2025 1:38 PM EDT Chest pain, unspecified type VILLAVICENCIO (dyspnea on exertion) CORONARY ANGIOGRAPHY Routine 06/12/2025 1:38 PM EDT Chest pain, unspecified type VILLAVICENCIO (dyspnea on exertion) POCT HBO2% Routine 06/12/2025 1:26 PM EDT ECG 12-LEAD Routine 06/12/2025 11:33 AM EDT documented in this encounter Results * CORONARY ANGIOGRAPHY, RIGHT HEART CATH (06/12/2025 1:38 PM EDT) Anatomical Region Laterality Modality Other Narrative 06/12/2025 1:49 PM EDT PROCEDURE PHYSICIAN: Arturo Yu MD . Indications: Sajan Humphreys is a 59 y.o. male who has a history of coronary disease status post stenting of the circumflex in the past. He was evaluated in cardiology clinic because of worsening in symptoms of shortness of breath on exertion. Because of worsening symptoms he was referred for cardiac catheterization. In the past his stress test was negative at the time of requiring stenting of the circumflex. Assistants: Cardiovascular Fellow Dr Barbara Abrams. Procedure Performed: Bilateral selective coronary angiogram. Right heart catheterization. Access into the right internal jugular vein under ultrasound guidance. Access into the left radial artery under ultrasound guidance. Methods: Procedure was explained to the patient with risks and benefits; he signed informed consent. he was brought to the field laborer in a fasting state. The right neck area was prepped and draped in usual fashion. Micropuncture technique was used for access under ultrasound guidance into the right internal jugular vein. A 6-Bulgarian x 11 cm sheath was placed. A 6-Bulgarian Lovett catheter was used for right heart catheterization and measurement of pressures and calculation of cardiac output using the estimated Sydnie method. Lovett catheter was removed. The left wrist area was prepped and draped in usual fashion. Micropuncture technique was used for access in the radial artery. A 6-Bulgarian x 11 cm sheath was placed. Verapamil was given through the sheath, and heparin was administered intravenously. Bilateral selective coronary angiography was then performed using 6-Bulgarian JL4 diagnostic catheter for engagement of the left coronary artery and 6-Bulgarian JR4 diagnostic catheter for engagement of the right coronary artery. Catheters were removed. Hemostasis was achieved by TR band in the radial artery manual compression in the internal jugular vein. he tolerated the procedure well and was transferred back to the cardiovascular recovery area. Hemodynamic Data: RA: 9 RV: 27/3, 10 PA: 30/18 (23) PCWP: 12 CO: 5.75 CI: 2.6 O2 Sat: PA sat: 64%, AO sat: 95% AO: 101/59 (78) Coronary angiography: This is a right-dominant circulation. Left Main: This arises from the left coronary cusp. It bifurcates into left anterior descending and circumflex vessels. This is angiographically normal. Left anterior descending: This is a large vessel that tapers distally. Proximally it has mild disease. In the mid to distal segment there is mild diffuse disease up to 20%. No obstructive lesions noted in the LAD and diagonal branches. Circumflex: This is a non-dominant vessel. It gives rise to 2 large obtuse marginal branches. The first obtuse marginal branch is a large vessel with mild luminal irregularities. The mid segment of the circumflex has a previously placed stent extending into the second obtuse marginal branch. The stent is. The stent there is a stepdown in. The rest of the obtuse is free of disease. The main circumflex in the AV groove is a small caliber vessel and has mild luminal irregularities. Right coronary artery: This arises from the right coronary cusp. It is a dominant vessel. This has mild luminal irregularities but no obstructive lesions. Impression/Findings: Nonobstructive coronary artery disease with patent previously placed circumflex/obtuse marginal branch stent Normal left filling pressures. Mild elevation of right filling pressures. Mild pulmonary hypertension. Normal cardiac output and cardiac index. Controlled systemic hypertension. Plan: Medical therapy for coronary artery disease. Aspirin 81 mg daily for life. Statin therapy for life. Maximize antianginal therapy. Follow up in Cardiology Clinic with Dr Justino Serna. Arturo Yu MD Study Details VILLAVICENCIO (dyspnea on exertion) [R06.09], Coronary artery disease involving [place] coronary artery of [place] heart with other form of angina pectoris [I25.118] Ivet Jane CNP CV CARDIAC CATH PROCEDURES Fi nal Result * (ABNORMAL) POC Hb02% (06/12/2025 1:26 PM EDT) Pathologist [facility] [id number]% 64.1(A) 90 - 95 % QC Pass/Fail Passed QC LOT # [id number] QC Expiration Date 73,126 SAMPLESITE nl Blood Venous blood specimen / Unknown 06/12/2025 1:26 PM EDT Narrative Wilfred Aguiar MT - 06/13/2025 6:42 AM EDT Oper [id number] Arturo Yu MD POINT OF CARE TEST ENTER/ALCON T ORDERABLES Final Result * Electrocardiogram, 12-lead (06/12/2025 11:33 AM EDT) Pathologist [facility] Ventricular Rate 53 BPM GE MUSE Atrial Rate 53 BPM GE MUSE [place] Interval 156 ms GE MUSE QRS DURATION 100 ms GE MUSE QT Interval 436 ms GE MUSE QTC CALCULATION(BAZE TT) 409 ms GE MUSE P [place] 78 degrees GE MUSE R-[place] 1 degrees GE MUSE T Wave [place] 57 degrees GE MUSE 06/12/2025 11:2 4 AM EDT 06/12/2025 12:50 PM EDT Impressions GE MUSE - 06/12/2025 12:50 PM EDT Sinus bradycardia Otherwise normal ECG When compared with ECG of 03-AUG-2022 13:19, No significant change was found Confirmed by Tomi Scruggs (80) on 06/12/2025 12:50:28 PM Narrative Procedure Note Tomi Scruggs MD - 06/12/2025 IMPRESSION: Sinus bradycardia Otherwise normal ECG When compared with ECG of 03-AUG-2022 13:19, No significant change was found Confirmed by Tomi Scruggs (80) on 06/12/2025 12:50:28 PM Arturo Yu MD ECG ORDERABLES Final Result KAREN HAYES documented in this encounter Visit Diagnoses Diagnosis VILLAVICENCIO (dyspnea on exertion)- Primary Other dyspnea and respiratory abnormality Chest pain, unspecified type VILLAVICENCIO (dyspnea on exertion) Other dyspnea and respiratory abnormality CAD in [place] artery Chest pain Unspecified chest pain Coronary artery disease involving [place] coronary artery of [place] heart with other form of angina pectoris VILLAVICENCIO (dyspnea on exertion) Other dyspnea and respiratory abnormality documented in this encounter Admitting Diagnoses Diagnosis Chest pain Unspecified chest pain VILLAVICENCIO (dyspnea on exertion) Other dyspnea and respiratory abnormality documented in this encounter Active and Recently Administered Medications Times are shown in EDT. PRN Medication Order 06/10/2025 06/11/2025 06/12/2025 fentaNYL (Sublimaze) injection (CANCELED) As needed, Starting on Vicki 06/12/25 at 1316, Intraprocedure 1316 (Given - Provid er: Sunshine Rudd RN) heparin (porcine) injection (CANCELED) As needed, Starting on Vicki 06/12/25 at 1329, Intraprocedure 1329 (Given - Provid er: Sunshine Rudd RN) heparin irrigation 2 units/mL in NS (CANCELED) As needed, Starting on Vicki 06/12/25 at 1259, Intraprocedure 1259 (Given - Provid er: Arturo Yu MD) iodixanol (VISIPaque) 320 mg iodine/mL injection (CANCELED) As needed, Starting on Vicki 06/12/25 at 1337, Intraprocedure 1337 (Given - Provid er: Arturo Yu MD) lidocaine (PF) (Xylocaine) 10 mg/mL (1 %) injection (CANCELED) As needed, Starting on Vicki 06/12/25 at 1259, Intraprocedure 1259 (Given - Provid er: Arturo Yu MD) midazolam (Versed) injection (CANCELED) As needed, Starting on Vicki 06/12/25 at 1316, Intraprocedure 1316 (Given - Provid er: Sunshine Rudd, HUGO) sodium chloride 0.9 % infusion (COMPLETED) Continuous PRN, Starting on Vicki 06/12/25 at 1259, Intraprocedure 1259 (New Bag - Prov ider: Carmel Chavez RN) verapamil (Isoptin) injection (CANCELED) As needed, Starting on Vicki 06/12/25 at 1328, Intraprocedure 1328 (Given - Provid er: Arturo Yu MD) documented in this encounter Care Teams On Site Wastewater Systems Technician Relationship Specialty Start Date End Date Ben Jose MD [id number] [facility] [place] [id number] PCP - General 11/15/22 documented as of this encounter
--- OUTSIDE RECORDS SUMMARY | 2025-06-12 12:30 | XMS_ITS | Encounter Summary ---
Author Organization [facility] Address [address] [address] Care Team Providers Care Energy Projects Lead Name Role Phone Ben Jose MD Primary Care Provider [phone] Reason for Visit * Auth/Cert (Routine) Specialty Diagnoses / Procedures Referred By Contac t Referred To Contact Diagnoses Chest pain, unspecified type VILLAVICENCIO (dyspnea on exertion) Chest pain, unspecified type [R07.9] VILLAVICENCIO (dyspnea on exertion) [R06.09] Procedures ID RIGHT HEART CATH O2 SATURATION & CARDIAC OUTPUT ID CATH PLMT R HRT & ARTS W/NJX & ANGIO IMG S&I Coronary angiography Right heart cath Arturo Yu MD [address] [place] [address] Phone: tel: fax: [facility] [address] [place] [address] Phone: tel: fax: Referral ID Status Reason Start Date Expiration Date Visits Re quested Visits Authorized [id number] 1 1 Encounter Details Date Type Department Care Team (Late st Contact Info) Description 06/12/2025 12:30 PM EDT - 06/12/2025 1:45 PM EDT Surgery [facility] [address] [place] [address] Arturo Yu MD [address] [facility] [address] [place] [address] Coronary angiography Social History Tobacco Use Types Packs/Day Years [...] Sign Reading Time Taken Comments Blood Pressure 123/71 06/12/2025 1:39 PM EDT Pulse 50 06/12/2025 1:39 PM EDT Temperature - - Respiratory Rate 15 06/12/2025 1:39 PM EDT Oxygen Saturation 96% 06/12/2025 1:39 PM EDT Inhaled Oxygen Concentration - - Weight - - Height - - Body Mass Index - - documented in this encounter Discharge Instructions * Attachments The following attachments cannot be sent through Care Everywhere. * Angiogram Care After Uejc-fi-Nqvc (Swedish) * Moderate Conscious Sedation Adult Care After (Swedish) documented in this encounter Medications at Time of Discharge aspirin 81 mg chewable tabletIndications: CAD in [place] artery CHEW AND SWALLOW 1 TABLET IN THE MORNING 90 tablet 3 09/06/2023 atorvastatin (Lipitor) 80 mg tabletIndications: CAD in [place] artery TAKE 1 TABLET AT BEDTIME 90 tablet 3 09/02/2024 carvedilol (Coreg) 12.5 mg tablet Take 12.5 mg by mouth with breakfast and with evening meal. clopidogrel (Plavix) 75 mg tabletIndications: CAD in [place] artery TAKE 1 TABLET IN THE MORNING [...] original note were not included. Cardiovascular Medicine [facility] SUBJECTIVE Chief Complaint Patient presents with Chest [...] and chest pain with exertion. He cannot pick up man his grandchildren or get up into his [...] Problem List Diagnosis Chest pain CAD in [place] artery Essential hypertension COPD (chronic obstructive pulmonary disease) ([facility]) S/P drug eluting coronary stent placement Hyperplastic polyp of intestine Dyspnea Shortness of breath Severe persistent asthma with acute exacerbation ([facility]) Degeneration of intervertebral disc of cervical region [...] Types: Cigarettes Start date: 1981 Quit date: 2012 Years since quittin.5 Passive exposure: Past Smokeless [...] Final Atrial Rate 08/03/2022 53 BPM Final ID Interval 08/03/2022 164 ms Final QRS DURATION 08/03/2022 100 ms Final QT Interval 08/03/2022 424 ms Final QTC CALCULATION(BAZETT) 08/03/2022 397 ms Final P [place] 08/03/2022 39 degrees Final R-[place] 08/03/2022 -7 degrees Final T Wave [place] 08/03/2022 51 degrees Final Auto WBC [...] Final Atrial Rate 08/03/2022 50 BPM Final ID Interval 08/03/2022 170 ms Final QRS DURATION 08/03/2022 104 ms Final QT Interval 08/03/2022 436 ms Final QTC CALCULATION(BAZETT) 08/03/2022 397 ms Final P [place] 08/03/2022 50 degrees Final R-[place] 08/03/2022 4 degrees Final T Wave [place] 08/03/2022 7 degrees Final Ventricular Rate 08/03/2022 49 BPM Final Atrial Rate 08/03/2022 49 BPM Final ID Interval 08/03/2022 166 ms Final QRS DURATION 08/03/2022 106 ms Final QT Interval 08/03/2022 428 ms Final QTC CALCULATION(BAZETT) 08/03/2022 386 ms Final P [place] 08/03/2022 50 degrees Final R-[place] 08/03/2022 0 degrees Final T Wave [place] 08/03/2022 44 degrees Final Sodium 08/04/2022 [...] 5. Follow-up with Dr. Serna in the [facility] in the next 2 to 4 [...] dissection ASSESSMENT/PLAN: 1. Coronary artery disease of [place] artery of [place] heart with stable angina pectoris 2. Shortness [...] 10/07/2024 Severe persistent asthma with acute exacerbation ([facility]) 11/23/2023 Essential hypertension 08/04/2022 COPD (chronic obstructive pulmonary disease) ([facility]) 08/04/2022 S/P drug eluting coronary stent placement 08/04/2022 CAD in [place] artery 08/03/2022 Dyspnea 06/07/2022 Shortness of breath 11/22/2018 Hyperplastic polyp of intestine 05/03/2017 VILLAVICENCIO (dyspnea on exertion) 06/06/2025 Chest pain 07/14/2022 Allergies: Allergies[2] BAKER DOUGHNUT/Current Medications: Prescriptions Prior to Admission[3] Current Medications[4] [...] and agreed to proceed. Barbara Abrams PGY-4 Courtesy Driver [facility] [1] Past Medical History: Diagnosis Date COPD (chronic obstructive pulmonary disease) ([facility]) Coronary artery disease Hyperlipidemia Hypertension Sleep apnea [...] Info) Description 07/10/2025 1:40 PM EDT Follow[facility]Up [facility] [address] [place] [address] Ivet Jane, JACK FRAME TENDER [address] [place] [address] Scheduled Referrals Name Type Priority Associated Diagnoses Order Schedule Ambulatory referral to Cardiac Rehab Outpatient Referral Routine CAD in [place] artery Expected: 06/12/2025 (Approximate), Expires: 12/13/2025 documented [...] informed consent. he was brought to the chemical processing laborer in a fasting state. The right neck area was prepped and draped in usual fashion. Micropuncture technique was used for access under ultrasound guidance into the right internal jugular vein. A 6-Qatari x 11 cm sheath was placed. A 6-Qatari Lovett catheter was used for right heart catheterization and measurement of pressures and calculation of cardiac output using the estimated Sydnie method. Lovett catheter was removed. The left wrist area was prepped and draped in usual fashion. Micropuncture technique was used for access in the radial artery. A 6-Qatari x 11 cm sheath was placed. Verapamil was given through the sheath, and heparin was administered intravenously. Bilateral selective coronary angiography was then performed using 6-Qatari JL4 diagnostic catheter for engagement of the left coronary artery and 6-Qatari JR4 diagnostic catheter for engagement of the [...] on exertion) [R06.09], Coronary artery disease involving [place] coronary artery of [place] heart with other form of angina pectoris [I25.118] Ivet Jane CNP CV CARDIAC CATH PROCEDURES Fi nal Result * (ABNORMAL) POC Hb02% (06/12/2025 1:26 PM EDT) [facility] [id number]% 64.1(A) 90 - 95 % QC Pass/Fail Passed QC LOT # [id number] QC Expiration Date 73,126 SAMPLESITE nl Blood Venous blood specimen / Unknown 06/12/2025 1:26 PM EDT Narrative StefaniaLorenzael, [place] - 06/13/2025 6:42 AM EDT Oper [id number] Arturo Yu MD POINT OF CARE TEST ENTER/ALCON T ORDERABLES Final Result * Electrocardiogram, 12-lead (06/12/2025 11:33 AM EDT) Pathologist [facility] Ventricular Rate 53 BPM GE MUSE Atrial Rate 53 BPM GE MUSE ID Interval 156 ms GE MUSE QRS DURATION 100 ms GE MUSE QT Interval 436 ms GE MUSE QTC CALCULATION(BAZE TT) 409 ms GE MUSE P [place] 78 degrees GE MUSE R-[place] 1 degrees GE MUSE T Wave [place] 57 degrees GE MUSE 06/12/2025 11:2 4 AM EDT 06/12/2025 12:50 PM EDT Impressions GE MUSE - 06/12/2025 12:50 PM EDT Sinus bradycardia Otherwise normal ECG When compared with ECG of 03-AUG-2022 13:19, No significant change was found Confirmed by Toim Scruggs (80) on 06/12/2025 12:50:28 PM Narrative Procedure Note Tomi Scruggs MD - 06/12/2025 IMPRESSION: Sinus bradycardia Otherwise normal ECG When compared with ECG of 03-AUG-2022 13:19, No significant change was found Confirmed by Tomi Scruggs (80) on 06/12/2025 12:50:28 PM Arturo Yu MD ECG ORDERABLES Final Result GE ABIGAIL documented in this encounter Visit Diagnoses Diagnosis VILLAVICENCIO (dyspnea on exertion)- Primary Other dyspnea and respiratory abnormality Chest pain, unspecified type VILLAVICENCIO (dyspnea on exertion) Other dyspnea and respiratory abnormality CAD in [place] artery Chest pain Unspecified chest pain Coronary artery disease involving [place] coronary artery of [place] heart with other form of angina pectoris VILLAVICENCIO (dyspnea on exertion) Other dyspnea and respiratory abnormality documented in this encounter Admitting Diagnoses Diagnosis Chest pain Unspecified chest pain VILLAVICENCIO (dyspnea on exertion) Other dyspnea and respiratory abnormality documented in this encounter Administered Medications Inactive Administered Medications - up to 3 most recent administrations Medication Order MAR Action Action Date Dose Rate Site fentaNYL (Sublimaze) injection As needed, Starting on Vicki 06/12/25 at 1316, Intraprocedure Given 06/12/2025 1:16 PM EDT 25 mcg heparin (porcine) injection As needed, Starting on Vicki 06/12/25 at 1329, Intraprocedure Given 06/12/2025 1:29 PM EDT 5,000 Units heparin irrigation 2 units/mL in NS As needed, Starting on Vicki 06/12/25 at 1259, Intraprocedure Given 06/12/2025 12:59 PM EDT 2,000 mL iodixanol (VISIPaque) 320 mg iodine/mL injection As needed, Starting on Vicki 06/12/25 at 1337, Intraprocedure Given 06/12/2025 1:37 PM EDT 35 mL lidocaine (PF) (Xylocaine) 10 mg/mL (1 %) injection As needed, Starting on Vicki 06/12/25 at 1259, Intraprocedure Given 06/12/2025 12:59 PM EDT 10 mL midazolam (Versed) injection As needed, Starting on Vicki 06/12/25 at 1316, Intraprocedure Given 06/12/2025 1:16 PM EDT 1 mg sodium chloride 0.9 % infusion Continuous PRN, Starting on Vicki 06/12/25 at 1259, Intraprocedure New Bag 06/12/2025 12:59 PM EDT 20 mL/hr 20 mL/hr verapamil (Isoptin) injection As needed, Starting on Vicki 06/12/25 at 1328, Intraprocedure Given 06/12/2025 1:28 PM EDT 1.5 mg documented in this encounter Active and Recently [...] MD) documented in this encounter Care Teams Energy Projects Lead Relationship Specialty Start Date End Date Ben Jose MD [address] [facility] [place] [id number] PCP - General 11/15/22 documented as of this encounter
--- OUTSIDE RECORDS SUMMARY | 2025-06-18 08:05 | XMS_ITS ---
Author Organization [facility] [place] Address [address] [place] [address] Care Team Providers Care Forge Operator Name Role Phone Joe Jose Primary Care Provider REASON FOR VISIT QPD Case Management Encounters Encounter Location Date Provider Diagnosis [facility] Programs Department [address] [place] [address] 06/18/2025 Joe Jose Plan Of Treatment No Information Progress Notes * Sajan GRIGSBY SDOB: [birth year] (59 yo M)Acc No.[id number]:06/18/2025 Patient: Peace DINESHYessicaSajan :1965 A ge:59 Y S ex:Male Address:[address] [place] [address] * true * Date: Generated for Jassi doug/Fabenitag/eTransmitting on: 0 06/25/2025 03:47 PM EDT
--- OUTSIDE RECORDS SUMMARY | 2025-06-25 15:47 | XMS_ITS | Clinical Summary ---
Author Organization [employer] Address [id number] [address] [place] [address] Care Team Providers Care Director Of Global Talent Name Role Phone Ben Jose MD Primary Care Provider [phone] Allergies No known active allergies Medications olmesartan [...] on file Insurance [employer] Care Teams Director Of Global Talent Relationship Specialty Start Date End Date Ben Jose MD PCP - General 03/28/17
--- OUTSIDE RECORDS SUMMARY | 2025-06-25 15:47 | XMS_ITS | Patient Health Record ---
Author Organization [facility] Address [address] [place] [place] [address] Care Team Providers Care Auto Refinisher Name Role Phone Ben Jose Primary Care Provider Fior Arshad Unavailable Allergies No Known Allergies Reason For Referral No Information Medications Medication SIG (Take, Route, Fr equency, Duration) Notes Start Date End Date Status Baby Aspirin prn Act jennifer atorvastatin Active doxazosin Active clopidogrel Active lisinopril Active furosemide Active ferrous sulfate Acti ve DICLOFENAC SODIUM Ac tive carvedilol Active fenofibrate Active Social History Tobacco Use: Social History Observation Description Date Details (start date - stop date) Former Smoker NA - NA AUDIT-C (Standard) Question Answer Notes Did you have a drink containing alcohol in the p ast year? 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 Office [address] [place] [address] [address] [place] [address] 08/09/2024 Fior [place] Other cervical disc degeneration, high cervical region M50.31 ; Other cervical disc degeneration at C6-C7 level M50.323 ; Other cervical disc displacement at C6-C7 level M50.223 ; Radiculopathy, cervical region M54.12 and Spinal stenosis, cervical region M48.02 Assessments Encounter Date Diagnosis (ICD Code) Assessment Notes Treatment Notes Treatment Clinical Notes Section Notes 08/09/2024 Other cervical disc degeneration at C6-C7 level (ICD-10 - M50.323) 1. C3-4, C6-7 DDD/HNP/rad iculopathy/ NFS 08/09/2024 Other cervical disc degeneration, high cervical region (ICD-10 - M50.31) 1. C3-4, C6-7 DDD/HNP/rad iculopathy/ NFS 08/09/2024 Other cervical disc displacement at C6-C7 level (ICD-10 - M50.223) 1. C3-4, C6-7 DDD/HNP/rad iculopathy/ NFS 08/09/2024 Radiculopathy, cervical region (ICD-10 - M54.12) 1. C3-4, C6-7 DDD/HNP/rad iculopathy/ NFS 08/09/2024 Spinal stenosis, cervical region (ICD-10 - M48.02) 1. C3-4, C6-7 DDD/HNP/rad iculopathy/ NFS 08/09/2024 Other Plan established by Dr. Brown. Patient evaluated by myself and Dr. Brown today. Dr. Brown reviewed patient's MRI results with him and at this time is recommending physical therapy. We will see the patient back on an as-needed basis. The patient is very much in agreement with the treatment and/or diagnostic plan set forth and all questions were answered to the patient's satisfaction. Thanks once again. If we can be of further service to your patients with disorders of the spine, cervical, thoracic, or lumbar, please do not hesitate to contact Dr. Brown. Best regards, 1. C3-4, C6-7 DDD/HNP/rad iculopathy/ NFS Plan Of Treatment Pending Test Test Name Order Date SFS - Cervical Spine PT Orde r, Isometrics & Strenghening w/Modalities as needed. 2-3 x Week for 4-6 Weeks 08/09/2024 Insurance Providers Payer Name Payer Address Payer Phone Subscriber Number Group Number Insured Name Patient Relationship to Insured Coverage Start Date Coverage End Date [employer] [address] [place] [address] [id number] PARAS GRIGSBY Self - patient is the insured Medical (General) History Medical History History ICD Code High Blood Pressure Asthma Kidney stones Sleep apnea Do you have a CPAP machine? Yes Do you use the CPAP machine? Yes Surgical History Surgery Date(Month/Year) Knees Hernia Shoulder
--- OUTSIDE RECORDS SUMMARY | 2025-06-25 15:47 | XMS_ITS | Encounter Summary ---
Author Organization [facility] Address [address] [place] [address] Care Team Providers Care Equine Vet Name Role Phone Ben Jose MD Primary Care Provider [phone] Encounter Details Date Type Department Care Team (Latest Contact Info) Description 06/12/2025 Travel Social History Tobacco Use Types Packs/Day Years Used Date Smoking Tobacco: Former Cigarettes [id number] Passive Smoke Exposure: Past Smokeless Tobacco: Former [...] 07/10/2025 1:40 PM EDT Follow-Up [facility] [address] [place] [address] Ivet Jane, SHIPPING ORDER CLERK [address] [place] [address] documented as of this encounter Visit Diagnoses Not on filedocumented in this encounter Care Teams Equine Vet Relationship Specialty Start Date End Date Ben Jose MD [address] [facility] [place] [address] PCP - General 11/15/22 documented as of this encounter
--- OUTSIDE RECORDS SUMMARY | 2025-06-25 15:47 | XMS_ITS | Encounter Summary ---
Author Organization [facility] Address [address] [place] [place] [address] Care Team Providers Care Duster Tender Name Role Phone Ben Jose MD Primary Care Provider [phone] Encounter Details Date Type Department Care Team (Late Contact Info) Description 06/12/2023 Abstract [facility] [address] [place] [address] Cesar Dunham MD [address] [facility] [address] [place] [address] Social History Tobacco Use Types Packs/Day Years [...] Allergy [address] [place] [address] Cesar Dunham MD [address] [facility] [address] [place] [address] documented as of this encounter Visit Diagnoses Not on filedocumented in this encounter Care Teams Duster Tender Relationship Specialty Start Date End Date Ben Jose MD [address] [place] [phone] PCP - General 06/05/23 documented as of this encounter
--- OUTSIDE RECORDS SUMMARY | 2025-06-25 15:48 | XMS_ITS | Clinical Summary ---
Author Organization [facility] Address [address] [place] [address] Care Team Providers Care Heater Tender Name Role Phone Ben Jose MD Primary Care Provider [phone] Allergies No known active allergies Medications carvedilol (Coreg) 12.5 mg tablet Take 12.5 mg by mouth with breakfast and with evening meal. Active doxazosin (Cardura) 4 mg tablet Take 4 mg by mouth at bedtime. Active fenofibrate (Tricor) 145 mg tablet Take 145 mg by mouth in the morning. Active aspirin 81 mg chewable tabletIndication s:CAD in [place] artery CHEW AND SWALLOW 1 TABLET IN THE MORNING 90 tablet 3 3 Active diclofenac (Voltaren) 50 mg EC tablet Take 50 mg by mouth twice a day. Active FeroSuL 325 mg (65 mg iron) tablet Take 1 tablet by mouth in the morning and at bedtime. 4 Active atorvastatin (Lipitor) 80 mg tabletIndication s:CAD in [place] artery TAKE 1 TABLET AT BEDTIME 90 tablet 3 4 Active clopidogrel (Plavix) 75 mg tabletIndication s:CAD in [place] artery TAKE 1 TABLET IN THE MORNING 90 tablet 3 4 Active lisinopril 20 mg tabletIndication s:Essential hypertension Take 1 tablet (20 mg) by mouth in the morning. 90 tablet 3 5 Active furosemide (Lasix) 40 mg tabletIndication s:Edema, unspecified type TAKE 1 TABLET IN THE MORNING 90 tablet 3 5 Active liothyronine (Cytomel) 5 mcg tablet Take 15 mcg by mouth in the morning. 5 Active furosemide (Lasix) 20 mg tabletIndication [...] eluting coronary stent placement 2021 CAD in [place] artery 08/03/2022 Chest pain 07/14/2022 Overview (07/14/2022): Added automatically from request for surgery [id number] Dyspnea 06/07/2022 05/29/2023 Shortness of breath 11/22/2018 05/29/2023 Hyperplastic polyp of intestine 05/03/2017 05/29/2023 Encounters Date Type Department Care Team Description 06/12/2025 12:30 PM EDT - 06/12/2025 1:45 PM EDT Surgery [facility] Heart [facility] Vascular [facility] Vascular Lab [address] [place] [address] Arturo Yu MD Coronary angiography 06/12/2025 10:51 AM EDT - 06/12/2025 3:50 PM EDT Hospital Encounter [facility] Heart [facility] Vascular [place] [facility] [address] [place] [address] Arturo Yu MD CAD in [place] artery (Primary Dx); Chest pain, unspecified type; VILLAVICENCIO (dyspnea on exertion) Discharge Disposition: Home or Self Care () 06/12/2025 Travel 06/09/2025 Travel 06/06/2025 Orders Only [place] [address] [facility] [address] Karime De Souza MA Encounter for pre-operative examination (Primary Dx); VILLAVICENCIO (dyspnea on exertion) 06/06/2025 Orders Only [address] [place] [address] Karime De Souza MA Chest pain, unspecified type (Primary Dx); VILLAVICENCIO (dyspnea on exertion) 06/05/2025 3:20 PM EDT Office Visit [address] [place] [address] Ivet Jane CNP Coronary artery disease of [place] artery of [place] heart with stable angina pectoris (Primary Dx); Shortness of breath; History of coronary artery stent placement; VILLAVICENCIO (dyspnea on exertion); Mixed hyperlipidemia; Benign hypertensive heart disease without congestive heart failure; Pulmonary emphysema, unspecified emphysema type (CMS/HCC) 06/05/[address] [place] [address] Karon Silvestre MA 05/05/2025 Refill [facility] [address] [place] [address] Ivet Jane CNP Edema, unspecified type 04/25/2025 Orders [place] [address] [place] [address] Damian Wright CNP 04/18/2025 3:20 PM EDT Office Visit [address] [place] [address] Damian Wright CNP Coronary artery disease involving [place] coronary artery of [place] heart without angina pectoris (Primary Dx); Primary [...] Pulse 58 06/12/2025 3:45 PM EDT Temperature 36.8 C (98.2 F) 08/04/2022 8:00 AM EDT Respiratory Rate 20 06/12/2025 3:45 PM EDT [...] Info) Description 07/10/2025 1:40 PM EDT Follow-Up [facility] Heart at [facility] [address] [place] [address] Ivet Jane, EDUCATIONAL DIRECTOR [address] [place] [address] Health Maintenance Due Date Last Done Comments [...] this topic Medical Devices Implanted Type Area Fuel Yard Operator Device Identifier Shelf Expiration Date Model / Serial / Lot Stent,Synergy Mr 3.50 X 38 - [id number] Implanted:Qty: 1 on 08/03/2022 by Justino Serna MD at [facility] Drug Eluting Stent [employer] [id number] 04/12/2024 [id number] / / [id number] Procedures Procedure Name Priority Date/Time Associated Diagnosis Comments RIGHT HEART CATH Routine 06/12/2025 1:38 PM EDT Chest pain, unspecified type VILLAVICENCIO (dyspnea on exertion) CORONARY ANGIOGRAPHY Routine 06/12/2025 1:38 PM EDT Chest pain, unspecified type VILLAVICENCIO (dyspnea on exertion) POCT HBO2% Routine 06/12/2025 1:26 PM EDT ECG 12-LEAD Routine 06/12/2025 11:33 AM EDT ECG 12 LEAD UNIT PERFORMED Routine 06/05/2025 3:32 PM EDT Shortness of breath LIPID PANEL Routine 04/24/2025 8:30 AM EDT COMPREHENSIVE METABOLIC PANEL Routine 04/24/2025 8:30 AM EDT CBC Routine 04/24/2025 8:30 AM EDT from Last 3 Months Results * CORONARY ANGIOGRAPHY, RIGHT HEART CATH [...] informed consent. he was brought to the general labor in a fasting state. The right neck area was prepped and draped in usual fashion. Micropuncture technique was used for access under ultrasound guidance into the right internal jugular vein. A 6-Israeli x 11 cm sheath was placed. A 6-Israeli Lovett catheter was used for right heart catheterization and measurement of pressures and calculation of cardiac output using the estimated Sydnie method. Lovett catheter was removed. The left wrist area was prepped and draped in usual fashion. Micropuncture technique was used for access in the radial artery. A 6-Israeli x 11 cm sheath was placed. Verapamil was given through the sheath, and heparin was administered intravenously. Bilateral selective coronary angiography was then performed using 6-Israeli JL4 diagnostic catheter for engagement of the left coronary artery and 6-Israeli JR4 diagnostic catheter for engagement of the [...] on exertion) [R06.09], Coronary artery disease involving [place] coronary artery of [place] heart with other form of angina pectoris [I25.118] us Ivet Jane [facility] CV CARDIAC CATH PROCEDURES Fi nal Result * (ABNORMAL) POC Hb02% (06/12/2025 1:26 PM EDT) QTCFBY33% 64.1(A) 90 - 95 % QC Pass/Fail Passed QC LOT # [id number] QC Expiration Date 73,126 SAMPLESITE nl Blood Venous blood specimen / Unknown 06/12/2025 1:26 PM EDT Narrative Stefania WilfredASHLEY - 06/13/2025 6:42 AM EDT Oper [id number] Arturo Yu MD POINT OF CARE TEST ENTER/ALCON T ORDERABLES Final Result * Electrocardiogram, 12-lead (06/12/2025 11:33 AM EDT) Pathologist [facility] Ventricular Rate 53 BPM GE MUSE Atrial Rate 53 BPM GE MUSE HI Interval 156 ms GE MUSE QRS DURATION 100 ms GE MUSE QT Interval 436 ms GE MUSE QTC CALCULATION(BAZE TT) 409 ms GE MUSE P Spark[place] 78 degrees GE MUSE R-Sparkill 1 degrees GE MUSE T Wave Sparkill 57 degrees GE MUSE 06/12/2025 11:2 4 AM EDT 06/12/2025 12:50 PM EDT Impressions GE MUSE - 06/12/2025 12:50 PM EDT Sinus bradycardia Otherwise normal ECG When compared with ECG of 03-AUG-2022 13:19, No significant change was found Confirmed by Tomi Scruggs ([id number]) on 06/12/2025 12:50:28 PM Narrative Procedure Note oTmi Scruggs MD - 06/12/2025 IMPRESSION: Sinus bradycardia Otherwise normal ECG When compared with ECG of 03-AUG-2022 13:19, No significant change was found Confirmed by Tomi Scruggs (80) on 06/12/2025 12:50:28 PM Arturo Yu MD ECG ORDERABLES Final Result GE MUSE * ECG 12 lead unit performed (06/05/2025 3:32 PM EDT) Ivet Jane EDUCATIONAL DIRECTOR ECG ORDERABLES Final Result * CBC (04/24/2025 8:30 AM EDT) Blood Venous blood specimen / Unknown Damian Wright EDUCATIONAL DIRECTOR LAB BLOOD ORDERABLES Final Resul t * Lipid panel (04/24/2025 8:30 AM EDT) Blood Venous blood specimen / Unknown Damian Wright EDUCATIONAL DIRECTOR LAB BLOOD ORDERABLES Final Resul t * Comprehensive metabolic panel (04/24/2025 8:30 AM EDT) Blood Venous blood specimen / Unknown Damian Wright CNP LAB BLOOD ORDERABLES Final Resul t from Last 3 Months Insurance [employer] Advance Directives * Full Code (Latest Code Status on File) Date Activated Date Inactivated Comments 08/03/2022 12:28 PM 08/04/2022 1:04 PM Care Teams Heater Tender Relationship Specialty Start Date End Date Ben Jose MD [address] [facility] [address] [address] PCP - General 11/15/22
--- OUTSIDE RECORDS SUMMARY | 2025-06-25 15:48 | XMS_ITS | Encounter Summary ---
Author Organization [facility] Address [address] [place] [address] Care Team Providers Care Core Sucker Name Role Phone Ben Jose MD Primary Care Provider [phone] Reason for Visit * Reason Comments Med Refill Encounter Details Date Type Department Care Team (Late st Contact Info) Description 03/18/2023 Refill [facility] Cardiology [address] [place] [address] Alexus Mcarthur, NICHOLAS [address] [place] [address] Social History Tobacco Use Types Packs/Day Years Used Date Smoking Tobacco: Former Cigarettes - 2011 Smokeless Tobacco: Former Quit: 2002 Alcohol Use Standard Drinks/Week Comments Not Currently [...] Info) Description 07/10/2025 1:40 PM EDT Follow-Up [facility] Heart at [facility] [address] [place] [address] Ivet Jane, FLIGHT OPERATION COORDINATOR [address] [place] [address] documented as of this encounter Visit Diagnoses Not on filedocumented in this encounter Care Teams Core Sucker Relationship Specialty Start Date End Date Ben Jose MD [address] [facility] [place] [address] PCP - General 11/15/22 documented as of this encounter
--- OUTSIDE RECORDS SUMMARY | 2025-06-25 15:48 | XMS_ITS | Encounter Summary ---
Author Organization [facility] Address [address] [place] [address] Care Team Providers Care Change Control Analyst Name Role Phone Chris Martinez MD Primary Care Provider [phone] Ben Jose MD Primary Care Provider [phone] Reason for Visit * Reason Comments Med Refill Encounter Details Date Type Department Care Team (Late st Contact Info) Description 09/29/2022 Refill [facility] Cardiology [address] [place] [address] Alexus Mcarthur, FORMING DEPARTMENT SUPERVISOR [address] [place] [address] Social History Tobacco Use Types [...] Info) Description 07/10/2025 1:40 PM EDT Follow-Up [facility] Heart at [facility] [address] [place] [address] Ivet Jane, FORMING DEPARTMENT SUPERVISOR [address] [place] [address] documented as of this encounter Visit Diagnoses Not on filedocumented in this encounter Care Teams Change Control Analyst Relationship Specialty Start Date End Date Chris Martinez MD [address] [place] [address] PCP - General 07/28/22 11/14/22 Ben Jose MD [address] [facility] [address] [address] PCP - General 11/15/22 documented as of this encounter
--- OUTSIDE RECORDS SUMMARY | 2025-06-25 15:48 | XMS_ITS | Encounter Summary ---
Author Organization [facility] Address [address] [place] [address] Care Team Providers Care Channel Account Manager Name Role Phone Ben Jose MD Primary Care Provider [phone] Reason for Visit * Reason Comments Med Refill Encounter Details Date Type Department Care Team (Late st Contact Info) Description 09/06/[address] [address] Justino Serna MD [address] [facility] [address] [facility] [address] CAD in [place] artery Social History Tobacco Use Types Packs/Day [...] Info) Description 07/10/2025 1:40 PM EDT Follow-Up [place] [address] [place] [address] Ivet Jane POWDER WORKER TNT [address] [place] [address] documented as of this encounter Visit Diagnoses Diagnosis CAD in [place] artery documented in this encounter Care Teams Channel Account Manager Relationship Specialty Start Date End Date Ben Jose MD [address] [facility] [place] [address] PCP - General 11/15/22 documented as of this encounter
--- OUTSIDE RECORDS SUMMARY | 2025-06-25 15:48 | XMS_ITS | Patient Health Record ---
Author Organization The [facility] in [place] Address [address] [place] [address] Care Team Providers Care Account Development Executive Name Role Phone Joe Mack Primary Care Provider [phone] Allergies No Known Allergies Results Component Value Reference Range Notes XR cervical spine 2-3V Reviewed date:07/10/2024 07:39:57 PM Interpretation: Performing Lab: Notes/Report: Source Facility: [place] [address] XRay Report Signed Patient: SAJAN GRIGSBY MR#: [id number] : 1965 Acct:[id number] Age/Sex: 58 / M ADM Date: 07/09/24 Loc: RAD Attending Dr: Justino Waller M.D. Ordering Physician: Justino Waller M.D. Date of Service: 07/09/24 Procedure(s): XR cervical spine 2-3V Accession Number(s): [id number] cc: Justino Waller M.D.; Ben Mack M.D. [place] [id number] Patient Name: SAJAN GRIGSBY MRN: [id number] date: 1965 Sex: M Assigned Patient Location: RAD Current Patient Location: Accession/Order Number: [id number] Exam Date: 07/09/2024 15:25 Report Date: 07/10/2024 12:55 At the request of: JUSTINO WALLER Procedure: XR cervical spine 2-3V EXAMINATION: XR [...] Signed By: 07/10/24 1258 DD/ 1255 TD/TT: [employer]isher: [place] [address] XRay Report Signed Patient: HAIDER GRIGSBY MR#: [id number] : 1965 Acct:[id number] Age/Sex: 58 / M ADM Date: 07/09/24 Loc: RAD Attending Dr: Justino Walelr M.D. Ordering Physician: Justino Waller M.D. Date of Service: 07/09/24 Procedure(s): XR cervical spine 2-3V Accession Number(s): [id number] cc: Justino Waller M.D.; Ben Mack M.D. The [place] [id number] Patient Name: SAJAN GRIGSBY MRN: [id number] date: 1965 Sex: M Assigned Patient Location: RAD Current Patient Location: Accession/Order Number: [id number] Exam Date: 07/09/2024 15:25 Report Date: 07/10/2024 12:55 At the request of: JUSTINO WALLER Procedure: XR cervic al spine 2-3V EXAMINATION: [...] Signed By: 07/10/24 1258 DD/ 1255 TD/TT: [employer]: LIPID PROFILE Reviewed date:04/24/2025 07:09:42 PM Interpretation: Performing Lab: Notes/Report: [facility] , Triglycerides 206 <=150 mg/dL Cholesterol 84 <=200 mg/dL HDL Cholesterol 36 40-60 mg/dL <40 mg/dl - HIGH CARDIOVASCULAR RISK > or =60 mg/dl - LOW CARDIOVASCULAR RISK LDL Cholesterol Calculated 7.0 >190 mg/dl VERY HIGH 100-129 mg/dl NEAR OR ABOVE OPTIMAL 130-159 mg/dl BORDERLINE HIGH <100 mg/dl OPTIMAL 160-189 mg/dl HIGH VLDL CHOLESTEROL 41.2 Chol HDL Ratio 2.3 >11.0 HIGH RISK 3.3 - 4.4 LOW RISK 7.1 - 11.0 MODERATE RISK 4.4 - 7.1 AVERAGE RISK Performing Lab: see note ML - [facility] LB PROF 14(COMP METB) Reviewed date:04/24/2025 07:09:42 PM Interpretation: Performing Lab: Notes/Report: [facility] , Sodium 141 136-145 mmol/L Potassium [...] 1.0 Performing Lab: see note ML - [facility] FREE T3 Reviewed date:05/15/2025 07:12:38 PM Interpretation: Performing Lab: Notes/Report: [facility] , Free T3 1.31 2.18-3.98 pg/mL Performing Lab: see note ML - [facility] LB PSA Reviewed date:05/15/2025 07:12:38 PM Interpretation: Performing Lab: Notes/Report: [facility] , Prostate Specific Antigen Dx 1.21 <=4.00 ng/mL Performing Lab: see note ML - [facility] LB T4 Reviewed date:05/15/2025 07:12:38 PM Interpretation: Performing Lab: Notes/Report: [facility] , T4 Thyroxine 6.10 4.50-12.10 ug/dL Performing Lab: see note ML - [facility] LB TSH Reviewed date:05/15/2025 07:12:38 PM Interpretation: Performing Lab: Notes/Report: [facility] , Thyroid Stimulating Hormone 1.654 0.358-3.740 uIU/mL Performing Lab: see note ML - [facility] LB C. Difficile PCR Reviewed date:05/18/2025 04:45:05 PM Interpretation: Performing Lab: Notes/Report: [facility] , C. Difficile PCR POSITIVE RESULTS ERICH LED TO DR. MACK Performing Lab: see note ML - [facility] LB E coli Shiga Toxin EIA Reviewed date:05/21/2025 08:24:52 PM Interpretation: Performing Lab: Notes/Report: [facility] , E coli Shiga Toxin EIA See Below For Report E coli Shiga Toxin EIA E coli Shiga Toxin EIA Negative E col i Shiga Toxin EIA E coli Shiga Toxin EIA Performed at: [facility] E coli Shiga Toxin EIA E coli Shiga Toxin EIA [address] [place], [place] [id number] E coli Shiga Toxin EIA E coli Shiga Toxin EIA Mastic Sprayer: Suleiman Cartagena PhD, Phone: [phone] E coli Shiga Toxin EIA Performing Lab: see note [facility] SEE REPORT - [employer] Agent Id information not found for OBX-specific film producer legend Salmonella/Shigella Screen Reviewed date:05/24/2025 03:45:05 PM Interpretation: Performing Lab: Notes/Report: [facility] , Salmonella/Shigella Screen See Below For Report Salmonella/Shigella Screen Salmonella/Shigella Screen No Salmonella or Shigella recovered. Salmonella/Shigella Screen Performing Lab: see note [facility] LB Campylobacter Culture Reviewed date:05/24/2025 03:45:05 PM Interpretation: Performing Lab: Notes/Report: [facility] , Campylobacter Culture See Below For Report No Campylobacter species isolated. Campylobacter Culture Performing Lab: see note [facility] E coli Shiga Toxin EIA Reviewed date:05/24/2025 03:45:05 PM Interpretation: Performing Lab: Notes/Report: [facility] , E coli Shiga Toxin EIA See Below For Report E coli Shiga Toxin EIA E coli Shiga Toxin EIA Negative E coli Shiga Toxin EIA E coli Shiga Toxin EIA Performed at: [facility] E coli Shiga Toxin EIA E coli Shiga Toxin EIA [address] [place], [place] [id number] E coli Shiga Toxin EIA E coli Shiga Toxin EIA Mastic Sprayer: Suleiman Cartagena PhD, Phone: [phone] E coli Shiga Toxin EIA Performing Lab: see note SEE REPORT - [employer] Agent Id information not found for OBX-specific film producer legend [facility] FREE T3 Reviewed date:06/11/2025 12:51:27 PM Interpretation: Performing Lab: Notes/Report: [facility] , Free T3 2.12 2.18-3.98 pg/mL Performing Lab: see note - [facility] LB PROF CHEM 8 (BAS METB) Reviewed date:06/11/2025 12:51:27 PM Interpretation: Performing Lab: Notes/Report: [facility] , Sodium 141 136-145 mmol/L Potassium 3.8 3.5-5.1 mmol/L Chloride 108 98-107 mmol/L Carbon Dioxide 25.9 21.0-32.0 mmol/L Anion Gap 10.9 Glucose 106 74-106 mg/dL Blood Urea Nitrogen 22.0 7.0-18.0 mg/dL Creatinine 1.21 0.70-1.30 mg/dL Estimated GFR ( Rosemary >60 >=60 mL/min/1.73m 2 Estimated GFR (Non- Nicole >60 >=60 mL/min/1.73m 2 BUN Creatinine Ratio 18.2 Calcium 9.0 8.5-10.1 mg/dL Performing Lab: see note ML - [facility] LB T4 Reviewed date:06/11/2025 12:51:27 PM Interpretation: Performing Lab: Notes/Report: [facility] , T4 Thyroxine 6.10 4.50-12.10 ug/dL Performing Lab: see note - [facility] LB TSH Reviewed date:06/11/2025 12:51:28 PM Interpretation: Performing Lab: Notes/Report: [facility] , Thyroid Stimulating Hormone 1.644 0.358-3.740 uIU/mL Performing Lab: see note - [facility] LB CBC AUTO DIFF Reviewed date:04/24/2025 07:09:42 PM Interpretation: Performing Lab: Notes/Report: [facility] , White Blood Count 7.1 4.0-11.0 [...] 3/uL Performing Lab: see note ML - [facility] LB CBC AUTO DIFF Reviewed date:06/11/2025 12:51:27 PM Interpretation: Performing Lab: Notes/Report: [facility] , White Blood Count 5.8 4.0-11.0 10 3/uL Red Blood Count 3.79 4.70-6.10 10 6/uL Hemoglobin 11.4 14.0-18.0 g/dL Hematocrit 34.2 42.0-54.0 % Mean Corpuscular Volume 90.2 80.0-94.0 fL Mean Corpuscular Hemoglobin 30.1 25.9-34.0 pg Mean Corpuscular HGB Conc 33.3 29.9-35.2 g/dL Red Cell Distribution Width 13.9 11.0-15.0 % Platelet Count 265 150-450 10 3/uL Mean Platelet Volume 10.7 9.5-13.5 fL Neutrophils Percent Auto 46.5 43.0-75.0 % Lymphocytes Percent Auto 37.8 20.5-60.0 % Monocytes Percent Auto 9.0 1.7-12.0 % Eosinophils Percent Auto 5.5 0.9-7.0 % Basophils Percent Auto 1.0 0.2-2.0 % Immature Granulocytes Pct Auto 0.2 0.0-0.5 % Neutrophils Absolute Auto 2.7 1.4-6.5 10 3/uL Lymphocytes Absolute Auto 2.2 1.2-3.8 10 3/uL Monocytes Absolute Auto 0.5 0.3-0.8 10 3/uL Eosinophils Absolute Auto 0.3 0.0-0.7 10 3/uL Basophils Absolute Auto 0.1 0.0-0.1 10 3/uL Immature Granulocytes Abs Auto 0.01 0.00-0.03 10 3/uL Performing Lab: see note ML - [facility] LB Reason For Referral Diagnosis 1 Cervical disc diseas e (M50.90) Referral Organization [facility] Referring Provider First Name Joe Referring Provider Last Name Rebeca Referring Provider [facility] Referred Provider Specialty Neurological Surgery Referral Priority Routine Diagnosis 1 Anemia (D64.9) Referral Organization [facility] Referring Provider First Name Joe Referring Provider Last Name Rebeca Referring Provider [facility] Referred Provider [facility] Referred Provider Specialty General Surg tylor Referral Priority Routine Medications Medication SIG (Take, [...] days 07/18/2024 Active Liothyronine Sodium 5 MCG 3 tablet on [...] Problem Status W/U Status Risk Notes Problem 522083740 Morbid (severe) obesity due to excess calories (E66.01) Active confirmed Problem Hypermetropia (31237051) Hypermetropia, bilateral (H52.03) Active confirmed Problem Presbyopia (30847561) Presbyopia (H52.4) Active confirmed Problem Sudden visual loss (96107630) Sudden visual loss, right eye (H53.131) Active confirmed Problem Centrilobular emphysema (86155674) Centrilobular emphysema (J43.2) Active confirmed Problem Uncomplicated moderate persistent asthma (770554623) Moderate persistent asthma, uncomplicated (J45.40) Active confirmed Problem 86499644 Other specified dermatitis (L30.8) Active confirmed Problem Joint pain (45492929) Pain in un specified joint (M25.50) Active confirmed Problem Localized swelli ng, mass and lump, right lower limb (R22.41) Active confirmed Problem 70326469 Angioneurotic edema, initial encounter (T78.3XXA) Active confirmed Problem Long-term current us e of inhaled steroid (688059245) oysterman (current) use of inhaled steroids (Z79.51) Active confirmed Problem Chest pain (83884898) Chest pain (R07.9) Active confirmed Problem Hypertension (24454214) Hypertension (I10) Active confirmed Problem Male hypogonadism (00092406) Hypogonadism male (E29.1) Active confirmed Problem Cervical radiculopathy (99607933) Cervical radiculopathy (M54.12) Active confirmed Problem Hypothyroidism (69902326) Hypothyroidism (E03.9) Active confirmed Problem Coronary artery disease (41965083) Coronary artery disease (I25.10) Active confirmed Problem Anemia (265901587) Anemia (D64.9) Active confir med Problem Dyspnea (383382712) Dyspnea (R06.00) Active con firmed Problem Sleep apnea (08135959) Sleep apnea (G47.30) Active confirmed Problem Obstructive sleep apnea (59083429) Obstructive sleep apnea (G47.33) Active confirmed Problem Malaise (097765256) Malaise (R53.81) Active con firmed Problem 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 Problem Hypertriglyceridemia (860969096) Hypertriglyceridemi a (E78.1) Active confirmed Problem Arthralgia (35994730) Arthralgia (M25.50) Active confirmed Problem Well adult (234197032) Well adult (Z00.00) Active confirmed Problem Irritable bowel syndrome (88243659) Irritable bowel syndrome (K58.9) Active confirmed Problem Cervical disc diseas e (788160463) Cervical disc disease (M50.90) Active confirmed Problem Near syncope (398753950) Near syncope (R55) Active confirmed Problem Overweight (133211689) Over weight (E66.3) Active confirmed Problem Essential tremor (923786683) Benign essential tremor (G25.0) Active confirmed Problem Increased immunoglobulin (316315934) Elevated IgE level (R76.8) Active confirmed Problem Ex-tobacco user (finding) (992047407) History of tobacco abuse (Z87.891) Active confirmed 27 pack-yea r history Problem Mass of neck (093029861) Mass in neck (R22.1) Active confirmed Problem Umbilical hernia (438759401) Hernia, umbilical (K42.9) Active confirmed Problem Chronic obstructive pulmonary disease (66245326) COPD, moderate (J44.9) Active confirmed Problem Acute exacerbation o f chronic obstructive airways disease (763578745) Acute exacerbation of chronic obstructive airways disease (J44.1) Active confirmed Problem Otitis media (51616451) Unspecified otitis media (H66.90) Active confirmed Problem Hypertensive retinopathy (1602512) Hypertensive retinopathy (H35.039) Active confirmed Problem Essential hypertension (09876002) Essential Hypertension (I10) Active confirmed Problem Carpal tunnel syndrome (87047110) Carpal tunnel syndrome, bilateral upper limbs (G56.03) Active confirmed Problem History of headache (964382747) H/O headache (Z87.898) Active confirmed Problem Secondary pulmonary hypertension (96567791) Other secondary pulmonary hypertension (I27.29) Active confirmed Problem Disorder of pharynx (88465750) Disorder of pharynx (J39.2) Active confirmed Problem Oropharyngeal lesion (08344322639606) Oropharyngeal lesion (J39.2) Active confirmed Problem History of COVID-19 (682165454364113780) History of COVID-19 (Z86.16) Active confirmed 06/11/2022 Problem Low back pain (375061020) Low back pain, unspecified (M54.50) Active confirmed Vital Signs Temperature 99.0 degrees Fahrenheit 04/10/2025 Blood pressure diastolic 62 mm Hg 05/22/2025 Height 67 in 05/22/2025 Blood pressure systolic 118 mm Hg 05/22/2025 Weight 253 lbs 05/14/2025 BMI 39.62 kg/m2 05/14/2025 Encounters Encounter Location Date Provider Diagnosis [place] [id number] [place] [address] 04/10/2025 Joe Hoy Acute bronchitis, unspecified organism J20.9 [place] [address] [place] [address] 07/18/2024 Joe Hoy Cervical radiculopat hy M54.12 ; Insulin resistance complicating O26.899 and Insulin resistance, unspecified E88.819 [facility] [address] [place] [address] 05/14/2025 Joe Hoy Gastroenteritis K52. [address] [address] 07/10/2024 Joe Hoy Cervical pain M54.2 [facility] [address] [facility] [place] [address] 07/11/2024 Joe Hoy Cervical disc diseas e M50.90 [facility] [address] [facility] [address] 07/31/2024 Joe Hoy [facility] [address] [facility] [address] 08/05/2024 Joe Hoy [facility] [address] [facility] [place] [address] 04/16/2025 Joe y [facility] [address] [facility] [address] 04/16/2025 Joe Hoy [facility] [address] [facility] [place] [address] 04/24/2025 Joe Hoy [facility] [address] [place] [address] 05/15/2025 Joe Hoy Hypothyroidism E03.9 [facility] [address] [place] [address] 05/18/2025 Joe Hoy [facility] [address] [place] [address] 05/18/2025 Joe Hoy [facility] [address] [facility] [address] 05/18/2025 Joe Hoy [facility] [address] [place] [address] 05/21/2025 Joe Hoy [facility] [address] [facility] [address] [facility] [place] [address] 05/22/2025 Joe y [facility] [address] [facility] [place] [address] 05/24/2025 Joe Hoy [facility] [address] [place] [address] 06/11/2025 Joe Hoy Hypothyroidism E03.9 and Anemia D64.9 [facility] [address] [place] [address] 06/18/2025 Joe Mack [facility] [address] [place] [address] 05/22/2025 Joe Mack Hypertension I10 Assessments Encounter Date Diagnosis (ICD Code) Assessment Notes Treatment Notes Treatment Clinical Notes Section Notes 04/10/2025 Acute bronchitis, unspecified organism (ICD-10 - J20.9) Rest and drink more liquids, especially water. You may use a humidifier or vaporizer to help keep the drainage moist. Unio-tfv-scdjuyv Nasal Saline may help the stuffy and runny nose. Use Ibuprofen and or Tylenol as needed for fever, chills, body aches or pain. Children 5 years old should not be given jcrz-wfc-nyeacmq cough and cold medications such as guaifenesin and dextromethorphan. If you're over age 5, you may try vdhc-zkg-bvxncca cold medications such as guaifenesin and dextromethorphan, [...] East back into eating by eating bland, leub-jb-ukipyd foods like crackers, toast, gelatin, bananas, rice and chicken. Try to avoid foods/substances including dairy products, caffeine, alcohol, nicotine and fatty or highly seasoned foods. Medications such as ibuprofen or tylenol can make your stomach more upset, so use sparingly if at all. Also avoid rkzt-bfp-nzpfexg anti-diarrheal medications because it can make it harder for your body to eliminate the virus. 05/22/2025 Hypertension (ICD-10 - I10) 07/10/2024 Cervical pain (ICD-10 - M54.2) 07/11/2024 Cervical disc disease (ICD-10 - M50.90) 05/15/2025 Hypothyroidism (ICD-10 - E03.9) 06/11/2025 Hypothyroidism (ICD-10 - E03.9) 06/11/2025 Anemia (ICD-10 - D64.9) 07/18/2024 Cervical radiculopathy (ICD-10 - M54.12) 07/18/2024 Insulin resistance complicating (ICD-10 - O26.899) 07/18/2024 Insulin resistance, unspecified (ICD-10 - E88.819) Plan Of Treatment Pending Test Test Name Order Date CMP (COMPLETE METABOLIC PANEL) 4 CULTURE, STOOL 05/14/2025 HEMOGLOBIN A1C (GLYCO) 04/08/2024 [...] Insured Coverage Start Date Coverage End Date [employer] PLUS [address] [place] [address] [id number] Kayla Grigsby Spouse - patient is the spouse of the insured Medications Administered Medication Instructions Date of Administration Dosage Notes Tirso-Vikki 03/08/2023 120 mg 120 Medical (General) History [...] G47.33 Other secondary pulmonary hypertension I 27.29 [facility] (current) use of inhaled stero ids Z79.51 Surgical History Surgery Date(Month/Year) torn meniscus repair bilat bilat rotator cuff repair hernia repair
--- OUTSIDE RECORDS SUMMARY | 2025-06-25 15:49 | XMS_ITS | Clinical Summary ---
Author Organization [facility] Healthcare Address [address] [place] [address] Care Team Providers Care Manager Eligibility Name Role Phone Ben Jose MD Primary [...] pulmonary disease) Essential hypertension 08/04/2022 CAD in [place] artery 08/03/2022 History of coronary artery stent placement 08/03 Encounters Date Type Department Care Team Description 04/30/2025 4:15 PM EDT Office Visit [facility] [address] [place] [address] Angel Alcaraz DPM Onychodystrophy (Primary Dx); Onychomycosis 04/30/2025 Bamboo flowsheet [facility] [address] [place] [address] Angel Alcaraz DPM 04/30/2025 Travel 04/29/2025 Travel [...] Allergy [address] [place] [address] Cesar Dunham MD [address] [facility] [address] [place] [address] Health Maintenance Due Date Last Done Comments CT Colonography 1965 Colonoscopy 1965 Colorectal Cancer Screening 1965 FIT-DNA 1965 FIT 1965 FOBT 1965 Sigmoidoscopy 1965 Influenza Vaccine (#1) 2025 Insurance [employer] Care Teams Manager Eligibility Relationship Specialty Start Date End Date Ben Jose MD [address] [facility] [place] [address] PCP - General 06/05/23
--- OUTSIDE RECORDS SUMMARY | 2025-06-25 15:49 | XMS_ITS | Encounter Summary ---
Author Organization [facility] Address [address] [place] [address] Care Team Providers Care Rubber Goods Finisher Name Role Phone Ben Jose MD Primary Care Provider [phone] Reason for Visit * Reason Comments Med Refill Encounter Details Date Type Department Care Team (Late st Contact Info) Description 02/10/2025 Refill [facility] [address] [place] [address] Cesar Dunham MD [address] [place] [address] Severe persistent asthma with (acute) exacerbation (HCC) [...] Allergy [address] [place] [address] Cesar Dunham MD [address] [place] [address] documented as of this encounter Visit Diagnoses Diagnosis Severe persistent asthma with (acute) exacerbation (HCC) documented in this encounter Care Teams Rubber Goods Finisher Relationship Specialty Start Date End Date Ben Jose MD [address] [place] [address] PCP - General 06/05/23 documented as of this encounter
--- NOTE | 2025-06-25 15:56 | CA_ITS ---
Patient Name: PARAS GRIGSBY MR#: [id number] : 1965 Exam Date: 06/25/2025 Ordering Doctor: ISAAC TANG CNP ECHOCARDIOGRAM REPORT PROCEDURE: CA ECHO DOPPLER COMPLETE INDICATIONS: Shortness of breath COMPARISON: None. DESCRIPTION: COMPLETE ECHOCARDIOGRAM Real-time transthoracic echocardiography with 2D, M-mode, spectral and color flow Doppler performed. QUALITY: Technical quality was good. LEFT VENTRICLE: Normal chamber size. Borderline left ventricular hypertrophy. Global left ventricular systolic function is normal. LV EF: Estimated left ventricular ejection fraction is 60%. DIASTOLIC: Diastolic function is indeterminate. ATRIAL SEPTUM: LEFT ATRIUM: Mild dilatation. RIGHT ATRIUM: Moderate dilatation. RIGHT VENTRICLE: Mild dilatation. Normal right ventricular systolic function. TRICUSPID VALVE: Normal mobility and thickness. No stenosis with trivial regurgitation. Mild pulmonary hypertension. RVSP 36 mmHg. MITRAL VALVE: Normal mobility and thickness. No evidence of mitral valve stenosis. There is no mitral annular calcification. Trivial mitral regurgitation. AORTIC VALVE: Normal trileaflet appearance. Thickened aortic valve. Normal leaflet mobility. No evidence of aortic valve stenosis. Mild aortic regurgitation. AORTIC ROOT: Mildly dilated, measuring 4.3 cm which is mildly increased from previous exam of 4.1cm. The ascending aorta measures 3.6 cm. PULMONIC VALVE: Normal thickness and mobility. No stenosis. No regurgitation. PERICARDIUM: No evidence of pericardial effusion. IVC: Collapses with inspiration. Mild dilatation measuring 2.4 cm. PLEURA: CONCLUSION: 1. Borderline left ventricular hypertrophy with normal systolic function. LVEF is estimated at 60%. 2. Mildly dilated right ventricle with normal systolic function. 3. Mild to moderate biatrial dilatation. 4. Mild aortic regurgitation. 5. Mildly elevated right-sided pressures. 6. Mildly dilated aortic root measuring 4.3 cm. The ascending aorta is normal in size measuring 3.6 cm. Adult Echocardiography Procedure Report Left Ventricle LVEDD (3.7 - 5.6 cm): 6.10 cm LVESD (2.2 - 4.0 cm): 4.00 cm LVIVS thickness (0.6 - 1.2 cm): 0.96 cm LVPW thickness (0.5 - 1.0 cm): 1.03 cm e': 0.12 m/s E - e': 6.04 LVOT Max Gradient: 5.51 mm[Hg] LVOT Area (cm2): 1.17 m/s Peak Velocity (LVOT): 1.17 m/s Mean Velocity (LVOT): 0.73 m/s LVOT Diameter 2.19 cm Left Ventricular Ejection Fraction: 60 % Left Atrium LA Volume Index (2D A2C): 32.64 ml/m2 Left Atrium Systolic Dimension: 4.33 cm Mitral Valve MV E to A Ratio: 0.78 Mitral Valve A-Wave Peak Velocity: 0.92 m/s Mitral Valve E-Wave Peak Velocity: 0.71 m/s Right Ventricle RV Internal Diastolic Dimension: 4.59 cm Aorta AO Root Diam: 4.27 cm Ascending Ao Diam: 3.59 cm Aortic Valve AoV Area ([place]): 3.03 cm2, 3.03 cm2 AoV Area (VTI): 3.21 cm2, 3.21 cm2 Deceleration [place]: 1.06 m/s2 Pressure Half-Time: 907.43 ms Peak Velocity(Antegrade Flow): 1.46 m/s Peak Gradient(Antegrade Flow): 8.48 mm[Hg] Mean Velocity(Antegrade Flow): 0.85 m/s Mean Gradient(Antegrade Flow): 3.54 mm[Hg] Velocity Time Integral: 29.61 cm Tricuspid Valve Peak Velocity (Regurgitant Flow): 2.23 m/s, 2.19 m/s, 2.66 m/s, 2.44 m/s Pulmonic Valve Peak Velocity: 1.17 m/s Peak Gradient: 5.39 mm[Hg], 5.48 mm[Hg] Right Atrium Right Atrium Systolic Pressure: 87.22 ml, 87.22 ml Dictated by: Arturo Yu M.D. on 06/25/2025 at 18:12 Approved by: Arturo Yu M.D. on 06/25/2025 at 18:16
--- OUTSIDE RECORDS SUMMARY | 2025-06-25 16:36 | XMS_ITS | CCD ---
Author Organization [facility] Care Team Providers Care Machine Silk Screen Printer Name Role Phone Dimple Milligan Unavailable YolandaDyanEmma Unavailable Yasmine Joaquin Unavailable SAMSA, MARYRUI Consulting Unavailable HOY ., DR VERDIN Primary [...] DR VERDIN Attending Unavailable HOY ., DR EVRDIN Admhelen Unavailable BOZRAH, DR PADMINI Ravi Consulting Unavailable HOY ., [...] Care Unavailable ELTAHAWY, DR CHACON Consulting Unavailable MARTINA ., DR VERDIN Primary Care Unavailable ELTAHAWY, DR CHACON Attending Unavailable ELTAHAWY, DR CHACON Admitting Unavailable SAMSA, MARYURI Consulting Unavailable MARTINA ., DR VERDIN Primary Care Unavailable SAMSA, MARYURI Attending Unavailable SAMSA, MARYURI Admitting Unavailable MARTINA ., DR VERDIN Consulting Unavailable MARTINA ., DR VERDIN Primary Care Unavailable MARTINA ., DR VERDIN Attending Unavailable OSNY ., DR VERDIN Admitting Unavailable MORENO, WINCHA Consulting Unavailable ELTAHAWY, DR CHACON Consulting Unavailable MARTINA ., DR VERDIN Primary Care Unavailable ELTAHAWY, DR CHACON Attending Unavailable ELTAHAWY, DR CHACON Admitting Unavailable Lambert Jose MD Primary Care Provider [phone] Lambert Jose MD Primary Care Provider [phone] GIOVANNY TATUM Referring Unavailable JR. DOSHI GEORGE C Attending UnavailDEBORA Santos Attending Unavailable LAMBERT JOSE Referring Unavailable DEBORA DUNHAM Attending Unavailable ANGEL ALCARAZ Attending Unavailable GIOVANNY TATUM Attending Unavailable GIOVANNY TATUM Referring Unavailable HERACLIO RIVAS Admitting Unavailable HERACLIO RIVAS Attending Unavailable HERACLIO RIVAS Referring Unavailable JUSTINO SERNA Attending Unavailable SRIDHAR, JUSTINO Attending Unavailable ISAAC TANG Attending Unavailable DAMIAN XAVIER Attending Unavailable Lee HALE Attending Unavailable Lambert Jose Referring Unavailable Allergies Allergy Classification Reported Allergen(s) Allergy Type Date of Onset Reaction(s) Facility (1 source) No Known Medication Allergies; Translations: [No Known Medication Allergies] Propensity to adverse reactions (disorder) [facility] Repository Medications Current Medications Medication Drug Class(es) Dates Sig (Normalized) Sig (Original) amoxicillin 875 mg oral tablet (1 source) Penicillin-class Antibacterial Start: 02-15-2022 take 1 tablet by mouth every eight hours Amoxicillin 875 MG 1 tablet Orally every 8 hrs for 10 day(s) Feb, Active aspirin 81 mg chewable tablet (18 sources) Platelet Aggregation Inhibitor, Nonsteroidal Anti-inflammatory Drug Start: 08-03-2022 aspirin 81 MG chewable tablet CHEW AND SWALLOW 1 TABLET IN THE MORNING 08/03/2022 Active atorvastatin 80 mg oral tablet (18 sources) HMG-CoA Reductase Inhibitor Start: 08-03-2022 take 1 tablet by mouth at bedtime atorvastatin (Lipitor) 80 MG tablet Take 80 mg by mouth at bedtime 08/03/2022 Active Breztri Aerosphere (1 source) Breztri Aerosphe re Active carvedilol 25 mg oral tablet (19 sources) alpha-Adrenergic Kali, beta-Adrenergic Kali take 1 [...] Feb, Active clopidogrel 75 mg oral tablet (18 sources) P2Y12 Platelet Inhibitor Start: 09-06-2023 take 1 tablet by mouth in the morning clopidogrel (Plavix) 75 MG tablet Take 75 mg by mouth in the morning. 09/06/2023 Active Clopidogrel Bisu lfate 75 MG Oral for 90 Days Active diclofenac sodium 75 mg delayed release oral tablet (17 sources) Nonsteroidal Anti-inflammatory Drug take 1 tablet [...] (Therapy completed) doxazosin 4 mg oral tablet (18 sources) alpha-Adrenergic Kali take 1 tablet by mouth once daily doxazosin (Cardura) 4 MG tablet Take 1 tablet by mouth Daily Active 2 ml dupilumab 150 mg/ml auto-injector (17 sources) Interleukin-4 Receptor alpha Antagonist Start: 07-15-20 dupilumab (Dupixent) 300 MG/2ML injection Indications: Severe persistent asthma with (acute) exacerbation (HCC) Inject [...] 02/18/2023 Active fenofibrate 145 mg oral tablet (18 sources) Peroxisome Proliferator Receptor alpha Agonist take 1 tablet by mouth in the morning fenofibrate (Tricor) 145 MG tablet Take 145 mg by mouth in the morning. Active ferrous sulfate 325 mg oral tablet (14 sources) take 1 tablet by mouth at mealtime ferrous sulfate 325 (65 Fe) MG tablet Take 325 mg by mouth in the morning. Take with meals. Active furosemide 40 mg oral tablet (20 sources) Loop Diuretic Start: 11-05-2024 furosemide (Lasix) [...] Active hydrOXYzine hydrochloride 50 mg oral tablet (15 sources) Antihistamine hydrOXYzine HCl (Atarax) 50 MG tablet Take by mouth. Active lisinopril 20 mg oral tablet (18 sources) Angiotensin Converting Enzyme Inhibitor lisinopril 20 [...] Translations: [Idiopathic urticaria] Onset: 02-25-2023 Episodic Asthma (20 sources) Moderate persistent asthma, uncomplicated; Translations: [Exacerbation of severe persistent asthma] Onset: 07-01-2022 07-15-2024 Chronic Chronic obstructive pulmonary disease and bronchiectasis (9 sources) Chronic obstructive lung disease; Translations: [Chronic obstructive pulmonary disease, unspecified] Onset: 08-04-2022 12-04-2024 Chronic Coronary atherosclerosis and other heart disease (16 sources) Atherosclerotic heart disease of [place] coronary artery without angina pectoris; Translations: [Coronary atherosclerosis due to lipid rich plaque] Onset: 08-03-2022 Chronic Disorders of lipid metabolism (2 sources) Mixed hyperlipidemia; Translations: [Mixed hyperlipidemia] Onset: 04-18-2025 Chronic Essential hypertension (15 sources) Essential (primary) hypertension; Translations: [Essential hypertension] [...] injury, left knee, initial encounter] 12-05-2024 Episodic Mycoses (2 sources) Onychomycosis; Translations: [Tinea unguium] 04-30-2025 Episodic Nonspecific chest pain (3 sources) Chest pain, unspecified; Translations: [CHEST PAIN UNSPECIFIED] Onset: 04-20-2022 Episodic Other aftercare (4 sources) Encounter for therapeutic drug level monitoring; Translations: [ENC THERAPEUTC DRUG LEVL MONITORING] Onset: 03-15-2023 Episodic Other aftercare (1 source) Other [place] (current) drug therapy; Translations: [OTH PRISON CURRENT DRUG THERAPY] Onset: 03-18-2023 Episodic Other aftercare (1 source) pen[facility] (current) use of aspirin; Translations: [PRISON CURRENT USE OF ASPIRIN] Onset: 02-27-2023 Episodic Other lower respiratory disease (6 sources) Shortness of breath; Translations: [SHORTNESS OF BREATH] Onset: 04-18-2022 Episodic Other lower respiratory disease (2 sources) Other forms of dyspnea; Translations: [Other forms of dyspnea] Onset: 06-06-2025 Episodic Other non-traumatic joint disorders (4 sources) Pain in left knee; Translations: [Pain in joint, lower leg] 11-19-2024 Episodic Other screening for suspected conditions (not mental disorders or infectious disease) (1 source) Encounter for screening for malignant neoplasm of prostate; Translations: [ENC SCREEN MALIG NEOPLASM PROSTATE] Onset: 01-28-2023 Episodic Other skin disorders (2 sources) Dystrophia unguium; Translations: [Nail dystrophy] 04-30-2025 Episodic Residual codes; unclassified (4 sources) Obstructive [...] without sinus Onset: 02-15-2022 Resolved: 02-15-2022 Episodic Other lower respiratory disease (4 sources) Dyspnea, unspecified; Translations: [DYSPNEA UNSPECIFIED] Onset: 05-30-2022 Episodic Unclassified (2 sources) Acute cough R05.1 Results Test Name Value Interpretation Reference Range Facility [facility] 06-12-2025 H&P reviewed. The patient was examined and there are no changes to the H&P. Will proceed with coronary angiography and right heart catheterization for further evaluation of his symptoms. Consent for blood products obtained. Risks, benefits, and alternatives to procedure discussed with patient in detail who expressed understanding and agreed to proceed. [facility] NURSNOTEon 06-12-2025 NURSNOTE RN educated pt on d/ c instructions. This included: site care, limited physical [...] off of unit with all of belongings. [facility] Orders Onlyon 06-06-2025 Orders Only [id number] Jada Grigsby bon Juan 1965 M Date Provider Department Center 06/06/2025 ATUL DIETZ [facility] Family History Problem Relation Age of Onset Heart failure Father Coronary artery disease Father Family Status - Relation Status Age at Mother Father [facility] 06-05-[address] [facility] SUBJECTIVE Chief Complaint Patient presents with Chest Pain Coronary Artery Disease Paras Grigsby is a 59 y.o. male here for [...] no further cardiac interventions needed at this time. BP at home running 140/70 Denies orthopnea, PND, LE edema, palpations, syncope. 06/05/2025 Patient here c/o SOB. He was seen last month by Damian Xavier CNP last month for routine [address] Jose just decreased his carvedilol to 12.5mg bid due to low BP's and lightheadedness. C/o chest pain also. Hasn't had echo or stress test since summer 2023. He notes for the past few weeks has not felt well. He has noticed increase SOB and chest pain with exertion. 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 Chest pain is left sided, non radiating, 5-6/10. Resting improves the pain and dyspnea. Denies any palpitations. He has some dizziness. He was experiencing some low BP's, dr. Jose reduced his coreg to 12.5mg BID. BP at home runing 100-120/60s Patient Active Problem List Diagnosis Chest pain CAD in [place] artery Essential hypertension COPD (chronic obstructive pulmonary disease) ([facility]) S/P drug eluting coronary stent placement Hyperplastic polyp of intestine Dyspnea Shortness of breath Severe persistent asthma with acute exacerbation ([facility]) Degeneration of intervertebral disc of cervical region Other cervical disc displacement at C6-C7 level Radiculopathy, cervical region Spinal stenosis, cervical region Hypertensive retinopathy Umbilical hernia VILLAVICENCIO (dyspnea on exertion) Past Medical History: Diagnosis Date COPD (chronic obstructive pulmonary disease) ([facility]) Coronary artery disease Hyperlipidemia Hypertension [...] kg (247 lb) SpO2 96% BMI 38.69 kg/m??? Smoking Status Former BSA 2.3 m??? Medications: Current Outpatient Medications: aspirin 81 [...] leg: No edema. Skin: General: Skin is w (more content not included)... Normal [facility] Office Visiton 06-05-2025 Follow-up visit [id number] Jada Grigsby 1965 M [facility] Provider Department Center 06/05/2025 ISAAC TELLEZ Family History Problem Relation Age of Onset Heart failure Father Coronary artery disease Father Family Status - Relation Status Age at Mother Father Level of Service:13137 MT OFFICE/OUTPATIENT ESTABLISHED MOD [facility] 30 MIN Reason for Visit and Comments: Chest Pain [233154] Coronary Artery Disease [187] Normal [facility] Orders Onlyon 04-25-2025 Orders Only [id number] Jada Grigsby 1965 [facility] Provider Department Center 04/25/2025 DAMIAN VARGAS Family History Problem Relation Age of Onset Heart failure Father Coronary artery disease Father Family Status - Relation Status Age at Mother Father Normal [facility] Office Visiton 04-18-2025 Follow-up visit [id number] Jada Grigsby 1965 M Date Provider Department Center 04/18/2025 DAMIAN VARGAS Family History Problem Relation Age of Onset Heart failure Father Coronary artery disease Father Family Status - Relation Status Age at Mother Father Level of Service:52030 MT OFFICE/OUTPATIENT ESTABLISHED MOD [facility] 30 MIN Normal [facility] MR KNEE LEFT WO IV CONTRASTo n [...] knee with age indeterminate metallic foreign body. [facility] Radiology Study observation (narrative) [facility] Office Visiton 10-07-2024 Follow-up visit [id number] Jada Grigsby 1965 M Date Provider Department Center 10/07/2024 [facility]-JUSTINO SERNA Family History Problem Relation Age of Onset Heart failure Father Coronary artery disease Father Family Status - Relation Status Age at Father Level of Service:36824 MT OFFICE/OUTPATIENT ESTABLISHED LOW MDM 20 MIN Normal [facility] MR CERVICAL SPINE WO CONTRAS Ton 07-30-2024 [...] Available 36on 07-10-2024 36 In regarding to C Spine x ray from yesterday From: Justino Serna MD Sent: 07/10/2024 3:03 PM EDT To: Karon Silvestre MA Subject: RE: Scan Please let pt know there is evidence of cervical disc space narrowing; I would recommend he speak to his PCP about an MRI and/or referral to a patient access specialist Pt was informed about the message Normal [facility] Office Visiton 07-09-2024 Follow-up visit [id number] Jada Grigsby 1965 M Date Provider Department Center 07/09/2024 [facility]-JUSTINO SERNA CARD [facility] Family History Problem Relation Age of Onset Heart failure Father Coronary artery disease Father Family Status - Relation Status Age at Father Level of Service:33270 MT OFFICE/OUTPATIENT ESTABLISHED MOD MDM 30 MIN Normal [facility] THEOPHYLLINEon 03-15-2023 THEOPHYLLINE 5.9 ug/mL Critically low 10.0-20.0 [facility] Comment on above: Performed By: #### T ALAN #### [facility] [address] [address] [address] Navneet Godwin CHUCKIE by IFAon 01-23-2023 Antinuclear Antibodies, IFA Positive Abnormal [facility] Comment on above: Result Comment: Nega tive <1:80 Borderline 1:80 Positive >1:80 Performed By: #### C BC #### [facility] [address] [address] [address] Navneet Godwin Centriole Pattern Normal [facility] Comment on above: Performed By: #### C BC #### [facility] [address] [address] [address] Navneet Godwin Centromere Pattern Normal [facility] Comment on above: Performed By: #### C BC #### [facility] [address] [address] [address] Navneet Godwin Homogeneous Pattern 1:80 Normal [facility] Comment on above: Result Comment: ICAP nomenclature: AC-1 Performed By: #### C BC #### [facility] [address] [address] [address] Navneet Godwin Midbody Pattern Normal [facility] Comment on above: Performed By: #### C BC #### [facility] [address] [address] [address] Navneet Godwin Note: Comment Normal [facility] Comment on above: Result Comment: For [...] titers Nucleosomes, Histones Drug-induced SLE Speckled Sm, ENTRY LEVEL ACCOUNT REPRESENTATIVE, SCL-70, SLE,MCTD,PSS (diffuse form), SS-A/SS-B Sjogrens Nucleolar SCL-70, PM-1/SCL High titers Scleroderma, PM/DM Centromere Centromere PSS (limited form) w/Crest syndrome variable Nuclear Dot [id number] Primary Biliary Cirrhosis Nuclear GP210, Primary Biliary Cirrhosis Membrane ofelia A,B,C Performed By: #### C BC #### [facility] [address] [place] [address] Dr. Navneet Godwin Nuclear Dot Pattern Normal [facility] Comment on above: Performed By: #### C BC #### [facility] [address] [place] [address] Dr. Navneet Godwin Nuclear Membrane Pattern Normal [facility] Comment on above: Performed By: #### C BC #### [facility] [address] [place] [address] Dr. Navneet Godwin Nucleolar Pattern Normal [facility] Comment on above: Performed By: #### C BC #### [facility] [address] [place] [address] Dr. Navneet Godwin PCNA Pattern Normal [facility] Comment on above: Performed By: #### C BC #### [facility] [address] [place] [address] Dr. Navneet Godwin Speckled Pattern Normal [facility] Comment on above: Performed By: #### C BC #### [facility] [address] [place] [address] Dr. Navneet Godwin Spindle Apparatus Pattern Normal [facility] Comment on above: Performed By: #### C BC #### [facility] [address] [place] [address] Dr. Navneet Godwin INSULINon 01-23-2023 Insulin 50.9 uIU/mL Critically high 2.6-24.9 [facility] Comment on above: Performed By: #### I NSULIN #### [facility] [address] [place] [address] Dr. Navneet Godwin ANTISTREPTOLYSIN O AB (ASO)o n 01-22-2023 Antistreptolysin O Ab 55.6 IU/mL Normal 0.0-200.0 [facility] Comment on above: Performed By: #### H GB #### [facility] [address] [place], [place] [id number] Dr. Navneet Godwin RHEUMATOID FACTORon 01-23-20 RA Latex Turbid. <10.0 Normal <14.0 [facility] Comment on above: Performed By: #### H GB #### [facility] [address] [place] [address] Dr. Navneet Godwin CBC AUTO DIFFon 01-21-2023 BASO # 0.0 103/ul Normal 0.0-0.1 [facility] Comment on above: Performed By: #### C BC #### [facility] [address] [place] [address] Dr. Navneet Godwin Basophils/100 WBC (Bld) 0.8 % Normal 0.2-2.0 [facility] Comment on above: Performed By: #### C BC #### [facility] [address] [place] [address] Dr. Navneet Godwin EO # 0.1 103/ul Normal 0.0-0.7 [facility] Comment on above: Performed By: #### C BC #### [facility] [address] [place] [address] Dr. Navneet Godwin Eosinophils/100 WBC (Bld) 2.1 % Normal 0.9-7.0 [facility] Comment on above: Performed By: #### C BC #### [facility] [address] [place] [address] Dr. Navneet Godwin Erythrocyte distribution width (RBC) [Ratio] 13.7 % Normal 11.0-15.0 [facility] Comment on above: Performed By: #### C BC #### [facility] [address] [place] [address] Dr. Navneet Godwin Hematocrit (Bld) [Volume fraction] 37.6 % Critically low 42.0-54.0 [facility] Comment on above: Performed By: #### C BC #### [facility] [address] [place] [address] Dr. Navneet Godwin Hemoglobin (Bld) [Mass/Vol] 12.7 g/dL Critically low 14.0-18.0 [facility] Comment on above: Performed By: #### C BC #### [facility] [address] [place] [address] Dr. Navneet Godwin IG # 0.01 10e3/ul Normal 0.00-0.03 [facility] Comment on above: Performed By: #### C BC #### [facility] [address] [place] [address] Dr. Navneet Godwin IG % 0.2 % Normal 0.0-0.5 [facility] Comment on above: Performed By: #### C BC #### [facility] [address] [place] [address] Dr. Navneet Godwin LYMPH # 1.8 103/ul Normal 1.2-3.8 [facility] Comment on above: Performed By: #### C BC #### [facility] [address] [place] [address] Dr. Navneet Godwin Lymphocytes/100 WBC (Bld) 33.1 % Normal 20.5-60.0 [facility] Comment on above: Performed By: #### C BC #### [facility] [address] [place] [address] Dr. Navneet Godwin MANUAL DIFF REQ NO Normal [facility] Comment on above: Performed By: #### C BC #### [facility] [address] [place] [address] Dr. Navneet Godwin MCH (RBC) [Entitic mass] 29.4 pg Normal 25.9-34.0 [facility] Comment on above: Performed By: #### C BC #### [facility] [address] [place] [address] Dr. Navneet Godwin MCHC (RBC) [Mass/Vol] 33.8 g/dL Normal 29.9-35.2 [facility] Comment on above: Performed By: #### C BC #### [facility] [address] [place] [address] Dr. Navneet Godwin MCV (RBC) [Entitic vol] 87.0 fL Normal 80.0-94.0 [facility] Comment on above: Performed By: #### C BC #### [facility] [address] [address] [address] Navneet Godwin MONO # 0.4 103/ul Normal 0.3-0.8 [facility] Comment on above: Performed By: #### C BC #### [facility] [address] [place] [address] Dr. Navneet Godwin Monocytes/100 WBC (Bld) 8.1 % Normal 1.7-12.0 [facility] Comment on above: Performed By: #### C BC #### [facility] [address] [place] [address] Dr. Navneet Godwin NEUT # 2.9 103/ul Normal 1.4-6.5 [facility] Comment on above: Performed By: #### C BC #### [facility] [address] [place] [address] Dr. Navneet Godwin Neutrophils/100 WBC (Bld) 55.7 % Normal 43.0-75.0 [facility] Comment on above: Performed By: #### C BC #### [facility] [address] [place] [address] Dr. Navneet Godwin Platelet mean volume (Bld) [Entitic vol] 10.6 fL Normal 9.5-13.5 [facility] Comment on above: Performed By: #### C BC #### [facility] [address] [place] [address] Dr. Navneet Godwin PLT 236 103/ul Normal 150-450 [facility] Comment on above: Performed By: #### C BC #### [facility] [address] [place] [address] Dr. Navneet Godwin RBC 4.32 106/ul Critically low 4.70-6.10 [facility] Comment on above: Performed By: #### C BC #### [facility] [address] [place] [address] Dr. Navneet Godwin WBC 5.3 103/ul Normal 4.0-11.0 [facility] Comment on above: Performed By: #### C BC #### [facility] [address] [place] [address] Dr. Navneet Godwin CRPon 01-21-2023 CRP [Mass/Vol] mg/L Normal <=1.0 [facility] Comment on above: Performed By: #### H GB #### [facility] [address] [address] [address] Navneet Godwin FREE THYROXINE INDEX T7on FTI 2.59 Normal 1.30-4.50 [facility] Comment on above: Performed By: #### C BC #### [facility] [address] [address] [address] Navneet Godwin T3U 32.0 % Critically low 33.0-40.0 [facility] Comment on above: Performed By: #### C BC #### [facility] [address] [place] [address] Dr. Navneet Godwin T4 [Mass/Vol] 8.10 ug/dL Normal 4.50-12.10 [facility] Comment on above: Performed By: #### C BC #### [facility] [address] [address] [address] Navneet Godwin GLYCOHEMOGLOBIN A1Con 2022 ADA RECOMMENDATION SEE BELOW Normal [facility] Comment on above: Result Comment: ADA RECOMMENDED LIMIT 4.0 - 6.0 ADA THERAPEUTIC TARGET < 7.0 ACTION SUGGESTED > 7.0 Performed By: #### H GB #### [facility] [address] [place] [address] Dr. Navneet Godwin Glucose [Mass/Vol] 126 mg/dL Normal [facility] Comment on above: Performed By: #### H GB #### [facility] [address] [place] [address] Dr. Navneet Godwin HbA1c (Bld) [Mass fraction] 6.0 % Normal 4.5-6.2 [facility] Comment on above: Performed By: #### H GB #### [facility] [address] [place] [address] Dr. Navneet Godwin LIPID PROFILEon 01-21-2023 CHOL-HDL RATIO NORM SEE BELOW Normal [facility] Comment on above: Result Comment: 3.3 - 4.4 LOW RISK 4.4 - 7.1 AVERAGE RISK 7.1 - 11.0 MODERATE RISK >11.0 HIGH RISK Performed By: #### C BC #### [facility] [address] [address] [address] Navneet Godwin Cholesterol [Mass/Vol] 96 mg/dL Normal <=200 [facility] Comment on above: Performed By: #### C BC #### [facility] [address] [address] [address] Navneet Godwin Cholesterol in HDL [Mass/Vol] 45 mg/dL Normal 40-60 [facility] Comment on above: Performed By: #### C BC #### [facility] [address] [address] [address] Navneet Godwin Cholesterol in LDL [Mass/Vol] 37.2 mg/dL Normal [facility] Comment on above: Performed By: #### C BC #### [facility] [address] [place] [address] Dr. Navneet Godwin Cholesterol.total/Cho lesterol in HDL [Mass ratio] 2.1 {ratio} Normal [facility] Comment on above: Performed By: #### C BC #### [facility] [address] [address] [address] Navneet Godwin HDL NORMAL > or = 60 mg/dl - LO W CARDIOVASCULAR RISK <40 mg/dl - HIGH CARDIOVASCULAR RISK Normal [facility] Comment on above: Performed By: #### C BC #### [facility] [address] [place] [address] Dr. Navneet Godwin LDL CALC NORMAL SEE BELOW Normal [facility] Comment on above: Result Comment: <100 mg/dl OPTIMAL 100 - 129 mg/dl NEAR OR ABOVE OPTIMAL 130 - 159 mg/dl BORDERLINE HIGH 160 - 189 mg/dl HIGH >190 mg/dl VERY HIGH Performed By: #### C BC #### [facility] [address] [address] [address] Navneet Godwin Triglyceride [Mass/Vol] 69 mg/dL Normal <=150 [facility] Comment on above: Performed By: #### C BC #### [facility] [address] [address] [address] Navneet Godwin VLDL CALC 13.8 mg/dL Normal [facility] Comment on above: Performed By: #### C BC #### [facility] [address] [place] [address] Dr. Navneet Godwin OCC BLD IMMUNO SCREENon 01-04 OCCULT BLOOD Negative Normal NEGATIVE [facility] Comment on above: Performed By: #### O BSCRN #### [facility] [address] [place] [address] Dr. Navneet Godwin PROF 14(COMP METB)on 023 Albumin [Mass/Vol] 4.1 g/dL Normal 3.4-5.0 [facility] Comment on above: Performed By: #### C BC #### [facility] [address] [place] [address] Dr. Navneet Godwin Albumin/Globulin [Mass ratio] 1.4 {ratio} Normal [facility] Comment on above: Performed By: #### C BC #### [facility] [address] [place] [address] Dr. Navneet Godwin ALP [Catalytic activity/Vol] 40 U/L Critically low 46-116 [facility] Comment on above: Performed By: #### C BC #### [facility] [address] [place] [address] Dr. Navneet Godwin ALT [Catalytic activity/Vol] 33 U/L Normal 16-63 [facility] Comment on above: Performed By: #### C BC #### [facility] [address] [place] [address] Dr. Navneet Godwin Anion gap [Moles/Vol] 14.6 mmol/L Normal [facility] Comment on above: Performed By: #### C BC #### [facility] [address] [place] [address] Dr. Navneet Godwin AST [Catalytic activity/Vol] 33 U/L Normal 15-37 [facility] Comment on above: Performed By: #### C BC #### [facility] [address] [place] [address] Dr. Navneet Godwin Bilirubin [Mass/Vol] 0.4 mg/dL Normal 0.2-1.0 [facility] Comment on above: Performed By: #### C BC #### [facility] [address] [place] [address] Dr. Navneet Godwin Calcium [Mass/Vol] 9.2 mg/dL Normal 8.5-10.1 [facility] Comment on above: Performed By: #### C BC #### [facility] [address] [place] [address] Dr. Navneet Godwin Chloride [Moles/Vol] 109 mmol/L Critically high 98-107 [facility] Comment on above: Performed By: #### C BC #### [facility] [address] [place] [address] Dr. Navneet Godwin CO2 [Moles/Vol] 23.1 mmol/L Normal 21.0-32.0 [facility] Comment on above: Performed By: #### C BC #### [facility] [address] [place] [address] Dr. Navneet Godwin Creatinine [Mass/Vol] 1.12 mg/dL Normal 0.70-1.30 [facility] Comment on above: Performed By: #### C BC #### [facility] [address] [place] [address] Dr. Navneet Godwin EGFR-AF P[place] >60 Normal >=60 [facility] Comment on above: Performed By: #### C BC #### [facility] [address] [place] [address] Dr. Navneet Godwin EGFR-NON AF P[place] >60 Normal >=60 [facility] Comment on above: Performed By: #### C BC #### [facility] [address] [place] [address] Dr. Navneet Godwin Globulin (S) [Mass/Vol] 2.9 g/dL Normal [facility] Comment on above: Performed By: #### C BC #### [facility] [address] [place] [address] Dr. Navneet Godwin Glucose [Mass/Vol] 109 mg/dL Critically high 74-106 [facility] Comment on above: Performed By: #### C BC #### [facility] [address] [address] [address] Navneet Godwin Potassium [Moles/Vol] 3.7 mmol/L Normal 3.5-5.1 [facility] Comment on above: Performed By: #### C BC #### [facility] [address] [address] [address] Navneet Godwin Protein [Mass/Vol] 7.0 g/dL Normal 6.4-8.2 [facility] Comment on above: Performed By: #### C BC #### [facility] [address] [address] [address] Navneet Godwin Sodium [Moles/Vol] 143 mmol/L Normal 136-145 [facility] Comment on above: Performed By: #### C BC #### [facility] [address] [place] [address] Dr. Navneet Godwin Urea nitrogen [Mass/Vol] 18.0 mg/dL Normal 7.0-18.0 [facility] Comment on above: Performed By: #### C BC #### [facility] [address] [address] [address] Navneet Godwin Urea nitrogen/Creatinine [Mass ratio] 16.1 mg/mg Normal [facility] Comment on above: Performed By: #### C BC #### [facility] [address] [place] [address] Dr. Navneet Godwin TSHon 01-21-2023 TSH 1.912 uIU/mL Normal 0.358-3.740 [facility] Comment on above: Performed By: #### H GB #### [facility] [address] [place] [address] Dr. Navneet Godwin URIC ACID SERUMon 01-21-2023 Urate [Mass/Vol] 6.9 mg/dL Normal 3.5-7.2 [facility] Comment on above: Performed By: #### H GB #### [facility] [address] [place] [address] Dr. Navneet Godwin THEOPHYLLINEon 12-26-2022 THEOPHYLLINE 5.3 ug/mL Critically low 10.0-20.0 [facility] Comment on above: Performed By: #### C BC #### [facility] [address] [address] [address] Navneet Godwin LIPID PROFILEon 10-01-2022 CHOL-HDL RATIO NORM SEE BELOW Normal [facility] Comment on above: Result Comment: 3.3 - 4.4 LOW RISK 4.4 - 7.1 AVERAGE RISK 7.1 - 11.0 MODERATE RISK >11.0 HIGH RISK Performed By: #### L IPID, CMP #### [facility] [address] [address] [address] Navneet Godwin Cholesterol [Mass/Vol] 92 mg/dL Normal <=200 [facility] Comment on above: Performed By: #### L IPID, CMP #### [facility] [address] [address] [address] Navneet Godwin Cholesterol in HDL [Mass/Vol] 40 mg/dL Normal 40-60 [facility] Comment on above: Performed By: #### L IPID, CMP #### [facility] [address] [address] [address] Navneet Godwin Cholesterol in LDL [Mass/Vol] 33.2 mg/dL Normal [facility] Comment on above: Performed By: #### L IPID, CMP #### [facility] [address] [address] [address] Navneet Godwin Cholesterol.total/Cho lesterol in HDL [Mass ratio] 2.3 {ratio} Normal [facility] Comment on above: Performed By: #### L IPID, CMP #### [facility] [id number] Navneet Godwin HDL NORMAL > or = 60 mg/dl - LO W CARDIOVASCULAR RISK <40 mg/dl - HIGH CARDIOVASCULAR RISK Normal [facility] Comment on above: Performed By: #### L IPID, CMP #### [facility] [address] [address] [address] Navneet Godwin LDL CALC NORMAL SEE BELOW Normal [facility] Comment on above: Result Comment: <100 mg/dl OPTIMAL 100 - 129 mg/dl NEAR OR ABOVE OPTIMAL 130 - 159 mg/dl BORDERLINE HIGH 160 - 189 mg/dl HIGH >190 mg/dl VERY HIGH Performed By: #### L IPID, CMP #### [facility] [address] [place] [address] Dr. Navneet Godwin Triglyceride [Mass/Vol] 94 mg/dL Normal <=150 [facility] Comment on above: Performed By: #### L IPID, CMP #### [facility] [address] [place] [address] Dr. Navneet Godwin VLDL CALC 18.8 mg/dL Normal [facility] Comment on above: Performed By: #### L IPID, CMP #### [facility] [address] [place] [address] Dr. Navneet Godwin PROF 14(COMP METB)on 022 Albumin [Mass/Vol] 3.6 g/dL Normal 3.4-5.0 [facility] Comment on above: Performed By: #### L IPID, CMP #### [facility] [address] [place] [address] Dr. Navneet Godwin Albumin/Globulin [Mass ratio] 1.2 {ratio} Normal [facility] Comment on above: Performed By: #### L IPID, CMP #### [facility] [address] [place] [address] Dr. Navneet Godwin ALP [Catalytic activity/Vol] 45 U/L Critically low 46-116 [facility] Comment on above: Performed By: #### L IPID, CMP #### [facility] [address] [place] [address] Dr. Navneet Godwin ALT [Catalytic activity/Vol] 25 U/L Normal 16-63 [facility] Comment on above: Performed By: #### L IPID, CMP #### [facility] [address] [place] [address] Dr. Navneet Godwin Anion gap [Moles/Vol] 13.5 mmol/L Normal [facility] Comment on above: Performed By: #### L IPID, CMP #### [facility] [address] [place] [address] Dr. Navneet Godwin AST [Catalytic activity/Vol] 37 U/L Normal 15-37 [facility] Comment on above: Performed By: #### L IPID, CMP #### [facility] [address] [place] [address] Dr. Navneet Godwin Bilirubin [Mass/Vol] 0.4 mg/dL Normal 0.2-1.0 [facility] Comment on above: Performed By: #### L IPID, CMP #### [facility] [address] [place] [address] Dr. Navneet Godwin Calcium [Mass/Vol] 8.9 mg/dL Normal 8.5-10.1 [facility] Comment on above: Performed By: #### L IPID, CMP #### [facility] [address] [place] [address] Dr. Navneet Godwin Chloride [Moles/Vol] 109 mmol/L Critically high 98-107 [facility] Comment on above: Performed By: #### L IPID, CMP #### [facility] [address] [place] [address] Dr. Navneet Godwin CO2 [Moles/Vol] 25.3 mmol/L Normal 21.0-32.0 [facility] Comment on above: Performed By: #### L IPID, CMP #### [facility] [address] [place] [address] Dr. Navneet Godwin Creatinine [Mass/Vol] 1.07 mg/dL Normal 0.70-1.30 [facility] Comment on above: Performed By: #### L IPID, CMP #### [facility] [address] [place] [address] Dr. Navneet Godwin EGFR-AF PAPUA [place]INE[place] >60 Normal >=60 [facility] Comment on above: Performed By: #### L IPID, CMP #### [facility] [address] [place] [address] Dr. Navneet Godwin EGFR-NON AF P[place] >60 Normal >=60 [facility] Comment on above: Performed By: #### L IPID, CMP #### [facility] [address] [place] [address] Dr. Navneet Godwin Globulin (S) [Mass/Vol] 3.1 g/dL Normal [facility] Comment on above: Performed By: #### L IPID, CMP #### [facility] [address] [address] [address] Navneet Godwin Glucose [Mass/Vol] 115 mg/dL Critically high 74-106 [facility] Comment on above: Performed By: #### L IPID, CMP #### [facility] [address] [address] [address] Navneet Gdowin Potassium [Moles/Vol] 3.8 mmol/L Normal 3.5-5.1 [facility] Comment on above: Performed By: #### L IPID, CMP #### [facility] [address] [place] [address] Dr. Navneet Godwin Protein [Mass/Vol] 6.7 g/dL Normal 6.4-8.2 [facility] Comment on above: Performed By: #### L IPID, CMP #### [facility] [address] [place] [address] Dr. Navneet Godwin Sodium [Moles/Vol] 144 mmol/L Normal 136-145 [facility] Comment on above: Performed By: #### L IPID, CMP #### [facility] [address] [place] [address] Dr. Navneet Godwin Urea nitrogen [Mass/Vol] 21.0 mg/dL Critically high 7.0-18.0 [facility] Comment on above: Performed By: #### L IPID, CMP #### [facility] [address] [place] [address] Dr. Navneet Godwin Urea nitrogen/Creatinine [Mass ratio] 19.6 mg/mg Normal [facility] Comment on above: Performed By: #### L IPID, CMP #### [facility] [address] [place] [address] Dr. Navneet Godwin ASPERGILLUS AB, QUANTITATIVE DIDon 07-08-2022 Aspergillus flavus Negative Normal Neg:<1:1 [facility] Comment on above: Performed By: #### C BC #### [facility] [address] [place] [address] Dr. Navneet Godwin Aspergillus fumigatus Negative Normal Neg:<1:1 [facility] Comment on above: Performed By: #### C BC #### [facility] [address] [place] [address] Dr. Navneet Godwin Aspergillus niger Negative Normal Neg:<1:1 [facility] Comment on above: Performed By: #### C BC #### [facility] [address] [place] [address] Dr. Navneet Godwin IMMUNOGLOBULIN E, TOTALon Immunoglobulin E, Total 102 IU/mL Normal 6-495 [facility] Comment on above: Performed By: #### C BC #### [facility] [address] [place] [address] Dr. Navneet Godwin ANTI NEUTROPHIL CYTOPLASMIC AB (ANCA) PRon 07-05-2022 Anti-MPO Antibodies <0.2 Normal 0.0-0.9 [facility] Comment on above: Result Comment: Perf ormed at: BN Performed By: #### H GB #### [facility] [address] [place] [address] Dr. Navneet Godwin Anti-PR3 Antibodies <0.2 Normal 0.0-0.9 [facility] Comment on above: Result Comment: Perf ormed at: BN Performed By: #### H GB #### [facility] [address] [place] [address] Dr. Navneet Godwin Atypical pANCA <1:20 Normal Neg:<1:20 [facility] Comment on above: Result Comment: The atypical pANCA pattern has been observed in a significant percentage of patients with ulcerative colitis, primary sclerosing cholangitis and autoimmune hepatitis. Performed at: CB Performed By: #### H GB #### [facility] [address] [place] [address] Dr. Navneet Godwin Cytoplasmic (C-ANCA) <1:20 Normal Neg:<1:20 [facility] Comment on above: Result Comment: Perf ormed at: CB Performed By: #### H GB #### [facility] [address] [place] [address] Dr. Navneet Godwin Perinuclear (P-ANCA) <1:20 Normal Neg:<1:20 [facility] Comment on above: Result Comment: [...] CB Performed By: #### H GB #### [facility] [address] [place] [address] Dr. Navneet Godwin CBC AUTO DIFFon 06-30-2022 BASO # 0.0 103/ul Normal 0.0-0.1 [facility] Comment on above: Performed By: #### C BC #### [facility] [address] [place] [address] Dr. Navneet Godwin Basophils/100 WBC (Bld) 0.7 % Normal 0.2-2.0 [facility] Comment on above: Performed By: #### C BC #### [facility] [address] [place] [address] Dr. Navneet Godwin EO # 0.1 103/ul Normal 0.0-0.7 [facility] Comment on above: Performed By: #### C BC #### [facility] [address] [place] [address] Dr. Navneet Godwin Eosinophils/100 WBC (Bld) 1.9 % Normal 0.9-7.0 [facility] Comment on above: Performed By: #### C BC #### [facility] [address] [place] [address] Dr. Navneet Godwin Erythrocyte distribution width (RBC) [Ratio] 12.5 % Normal 11.0-15.0 [facility] Comment on above: Performed By: #### C BC #### [facility] [address] [place] [address] Dr. Navneet Godwin Hematocrit (Bld) [Volume fraction] 38.6 % Critically low 42.0-54.0 [facility] Comment on above: Performed By: #### C BC #### [facility] [address] [place] [address] Dr. Navneet Godwin Hemoglobin (Bld) [Mass/Vol] 12.9 g/dL Critically low 14.0-18.0 [facility] Comment on above: Performed By: #### C BC #### [facility] [address] [place] [address] Dr. Navneet Godwin IG # 0.01 10e3/ul Normal 0.00-0.03 [facility] Comment on above: Performed By: #### C BC #### [facility] [address] [place] [address] Dr. Navneet Godwin IG % 0.2 % Normal 0.0-0.5 [facility] Comment on above: Performed By: #### C BC #### [facility] [address] [place] [address] Dr. Navneet Godwin LYMPH # 2.4 103/ul Normal 1.2-3.8 [facility] Comment on above: Performed By: #### C BC #### [facility] [address] [place] [address] Dr. Navneet Godwin Lymphocytes/100 WBC (Bld) 41.7 % Normal 20.5-60.0 [facility] Comment on above: Performed By: #### C BC #### [facility] [address] [place] [address] Dr. Navneet Godwin MANUAL DIFF REQ NO Normal [facility] Comment on above: Performed By: #### C BC #### [facility] [address] [place] [address] Dr. Navneet Godwin MCH (RBC) [Entitic mass] 29.8 pg Normal 25.9-34.0 [facility] Comment on above: Performed By: #### C BC #### [facility] [address] [place] [address] Dr. Navneet Godwin MCHC (RBC) [Mass/Vol] 33.4 g/dL Normal 29.9-35.2 [facility] Comment on above: Performed By: #### C BC #### [facility] [address] [place] [address] Dr. Navneet Godwin MCV (RBC) [Entitic vol] 89.1 fL Normal 80.0-94.0 [facility] Comment on above: Performed By: #### C BC #### [facility] [address] [place] [address] Dr. Navneet Godwin MONO # 0.6 103/ul Normal 0.3-0.8 [facility] Comment on above: Performed By: #### C BC #### [facility] [address] [place] [address] Dr. Navneet Godwin Monocytes/100 WBC (Bld) 10.5 % Normal 1.7-12.0 [facility] Comment on above: Performed By: #### C BC #### [facility] [address] [place] [address] Dr. Navneet Godwin NEUT # 2.6 103/ul Normal 1.4-6.5 [facility] Comment on above: Performed By: #### C BC #### [facility] [address] [place] [address] Dr. Navneet Godwin Neutrophils/100 WBC (Bld) 45.0 % Normal 43.0-75.0 [facility] Comment on above: Performed By: #### C BC #### [facility] [address] [place] [address] Dr. Navneet Godwin Platelet mean volume (Bld) [Entitic vol] 10.1 fL Normal 9.5-13.5 [facility] Comment on above: Performed By: #### C BC #### [facility] [address] [place] [address] Dr. Navneet Godwin PLT 296 103/ul Normal 150-450 [facility] Comment on above: Performed By: #### C BC #### [facility] [address] [place] [address] Dr. Navneet Godwin RBC 4.33 106/ul Critically low 4.70-6.10 [facility] Comment on above: Performed By: #### C BC #### [facility] [address] [address] [address] Navneet Godwin WBC 5.8 103/ul Normal 4.0-11.0 [facility] Comment on above: Performed By: #### C BC #### [facility] [address] [address] [address] Navneet Godwin PROF CHEM 8 (BAS METB)on Anion gap [Moles/Vol] 13.2 mmol/L Normal [facility] Comment on above: Performed By: #### B MP #### [facility] [address] [place] [address] Dr. Navneet Godwin Calcium [Mass/Vol] 9.1 mg/dL Normal 8.5-10.1 [facility] Comment on above: Performed By: #### B MP #### [facility] [address] [place] [address] Dr. Navneet Godwin Chloride [Moles/Vol] 106 mmol/L Normal 98-107 [facility] Comment on above: Performed By: #### B MP #### [facility] [address] [address] [address] Navneet Godwin CO2 [Moles/Vol] 23.7 mmol/L Normal 21.0-32.0 [facility] Comment on above: Performed By: #### B MP #### [facility] [address] [address] [address] Navneet Godwin Creatinine [Mass/Vol] 1.06 mg/dL Normal 0.70-1.30 [facility] Comment on above: Performed By: #### B MP #### [facility] [address] [place] [address] Dr. Navneet Godwin EGFR-AF PAPUA [place]INE[place] >60 Normal >=60 [facility] Comment on above: Performed By: #### B MP #### [facility] [address] [place] [address] Dr. Navneet Godwin EGFR-NON AF P[place] >60 Normal >=60 [facility] Comment on above: Performed By: #### B MP #### [facility] [address] [address] [address] Navneet Godwin Glucose [Mass/Vol] 94 mg/dL Normal 74-106 [facility] Comment on above: Performed By: #### B MP #### [facility] [address] [address] [address] Navneet Godwin Potassium [Moles/Vol] 3.9 mmol/L Normal 3.5-5.1 [facility] Comment on above: Performed By: #### B MP #### [facility] [address] [address] [address] Navneet Godwin Sodium [Moles/Vol] 139 mmol/L Normal 136-145 [facility] Comment on above: Performed By: #### B MP #### [facility] [address] [address] [address] Navneet Godwin Urea nitrogen [Mass/Vol] 17.0 mg/dL Normal 7.0-18.0 [facility] Comment on above: Performed By: #### B MP #### [facility] [address] [address] [address] Navneet Godwin Urea nitrogen/Creatinine [Mass ratio] 16.0 mg/mg Normal [facility] Comment on above: Performed By: #### B MP #### [facility] [address] [address] [address] Navneet Godwin XR CHEST 2 Von [...] by: MICKY MORENO Date: 2022-05-30 10:52 Normal [facility] ECHOCARDIO M/2D COMPLETEon 0 04-18-2022 ECHOCARDIO M/2D COMPLETE Patient: PARAS GRIGSBY Exam Date: 04/18/2022 : 1965 Gender:M Ordering : DR LAMBERT JOSE . Admission #: [id number] Family : Order #: [id number] CLICK HERE TO VIEW EXAM ECHOCARDIOGRAM REPORT [...] Area(A4C): 16.30 cm2 Left Atrium Systolic Volume(A2C): 59811 mm3 Left Atrium Systolic Volume(A4C): 14034 mm3 Mitral Valve MV E to A [...] 4 mm[Hg] Right Atrium Dictated by: Heraclio Rivas M.D. on 04/19/2022 at 18:10 Approved by: Heraclio Rivas M.D. on 04/19/2022 at 18:16 Normal [facility] CTA CHEST WO W CONon 06-06-2 022 CTA CHEST WO W CON EXAMINATION: CTA CHEST WO W CON HISTORY: Dyspnea COMPARISON: 01/21/2022 [...] by: PADMINI WHITE Date: 2022-04-11 07:16 Normal [facility] HEMOGLOBINon 03-24-2022 Hemoglobin (Bld) [Mass/Vol] 13.2 g/dL Critically low 14.0-18.0 [facility] Comment on above: Performed By: #### H GB #### [facility] [address] [place] [address] Dr. Navneet Godwin Vital Signs Date Time Vital Sign Value Performing Clinician Facility 04-30-2025 16:14-0400 Body height 170.2 cm Angel Alcaraz DPM Work Phone: [facility] 04-30-2025 16:14-0400 Body mass index (BMI) [Ratio] 40.41 kg/m2 Angel Alcaraz DPM Work Phone: [facility] 04-30-2025 16:14-0400 Body weight 117.03 kg Angel Alcaraz DPM Work Phone: [facility] 01-30-2025 15:57-0400 Body mass index (BMI) [Ratio] 40.41 kg/m2 Debora Dunham MD Work Phone: [facility] 01-30-2025 15:57-0400 Body weight 117.03 kg Debora Dunham MD Work Phone: [facility] 11-20-2024 13:32-0500 Body height 170.2 cm Giovanny SALDIVAR Work Phone: [facility] 11-20-2024 13:32-0500 Body mass index (BMI) [Ratio] 37.59 kg/m2 Giovanny SALDIVAR Work Phone: [facility] 11-20-2024 13:32-0500 Body weight 108.86 kg Giovanny SALDIVAR Work Phone: [facility] 07-15-2024 15:18-0400 Body mass index (BMI) [Ratio] 40.25 kg/m2 Debora Dunham MD Work Phone: [facility] 07-15-2024 15:18-0400 Body weight 116.57 kg Debora Dunham MD Work Phone: [facility] 02-23-2023 16:25-0400 Body height 170.18 cm Yasmine Joaquin Other [facility] Other 02-23-2023 16:25-0400 Body mass index (BMI) [Ratio] 40.72 kg/m2 Yasmine Joaquin Other [facility] Other 02-23-2023 16:25-0400 Body temperature 98.8 [degF] Yasmine Joaquin Other [facility] Other 02-23-2023 16:25-0400 Body weight 117.94 kg Yasmine Joaquin Other [facility] Other 02-23-2023 16:25-0400 Diastolic blood pressure 70 mm[Hg] Yasmine Joaquin Other [facility] Other 02-23-2023 16:25-0400 Respiratory rate 18 /min Yasmine Joaquin Other [facility] Other 02-23-2023 16:25-0400 SaO2% (BldA) [Mass fraction] 97 % Yasmine Joaquin Other [facility] Other 02-23-2023 16:25-0400 Systolic blood pressure 131 mm[Hg] Yasmine Joaquin Other [facility] Other 02-17-2023 10:10-0400 Body height 170.18 cm Emma Guerrero Other [facility] Other 02-17-2023 10:10-0400 Body mass index (BMI) [Ratio] 40.72 kg/m2 Emma Guerrero Other [facility] Other 02-17-2023 10:10-0400 Body temperature 97.7 [degF] Emma Guerrero Other [facility] Other 02-17-2023 10:10-0400 Body weight 117.94 kg Emma Guerrero Other [facility] Other 02-17-2023 10:10-0400 Respiratory rate 18 /min Emma Guerrero Other [facility] Other 02-17-2023 10:10-0400 SaO2% (BldA) [Mass fraction] 94 % Emma Guerrero Other [facility] Other 02-15-2022 18:45-0400 Body height 170.18 cm Dimple Arguetaault Other [facility] Other 02-15-2022 18:45-0400 Body mass index (BMI) [Ratio] 39.46 kg/m2 Dimple Srini Other [facility] Other 02-15-2022 18:45-0400 Body temperature 98.2 [degF] Dimple Srini Other [facility] Other 02-15-2022 18:45-0400 Body weight 114.31 kg Dimple Srini Other [facility] Other 02-15-2022 18:45-0400 Diastolic blood pressure 93 mm[Hg] Dimple Milligan Other [facility] Other 02-15-2022 18:45-0400 Respiratory rate 18 /min Dimple Milligan Other [facility] Other 02-15-2022 18:45-0400 SaO2% (BldA) [Mass fraction] 96 % Dimple Milligan Other [facility] Other 02-15-2022 18:45-0400 Systolic blood pressure 158 mm[Hg] Dimple Milligan Other [facility] Other Encounters Encounter Date Encounter Type Care Provider Facility Start: 07-16-2025 ambulatory Lee Bernard HALE Facility :[facility] Start: 06-12-2025 End: 06-12-2025 ambulatory [facility] Start: 06-05-2025 End: 06-06-2025 ambulatory [facility] Start: 04-30-2025 End: 04-30-2025 Office outpatient visit 15 minutes Angel Alcaraz DPM Work Phone: [facility] Comment on above: Onychodystrophy (Carolyn veronica Dx); Onychomycosis Start: 04-30-2025 End: 04-30-2025 ambulatory ANGEL ALCARAZ Not Available Start: 04-30-2025 End: 04-30-2025 Bamboo flowsheet Angel Alcaraz DPM Work Phone: [facility] Start: 04-30-2025 End: 04-30-2025 Bamboo flowsheet Angel Alcaraz DPM Work Phone: [facility] Start: 04-18-2025 End: 04-18-2025 ambulatory DAMIAN XAVIER [facility] Start: 01-30-2025 End: 01-30-2025 Office outpatient visit 15 minutes Debora Dunham MD Work Phone: [facility] Comment on above: 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) Start: 01-30-2025 End: 01-30-2025 ambulatory DEBORA DUNHAM Not Available Start: 01-30-2025 End: 01-30-2025 Bamboo flowsheet Debora Dunham MD Work Phone: [facility] Start: 01-30-2025 End: 01-30-2025 Bamboo flowsheet Deboar Dunham MD Work Phone: [facility] Start: 12-06-2024 End: 12-06-2024 Bamboo flowsheet Heraclio Yong Stepmarshall DO Work Phone: [facility] Start: 12-06-2024 End: 12-06-2024 Bamboo flowsheet JrEllie Heraclio Yong Stepanic DO Work Phone: [facility] Start: 12-06-2024 End: 12-06-2024 Office outpatient visit 15 minutes Heraclio Yong Stepmarshall DO Work Phone: [facility] Comment [...] 11-20-2024 Office outpatient new 30 minutes Giovanny SALDIVAR Work Phone: [facility] Comment on above: Acute pain of left k nee (Primary Dx); Internal derangement of left knee Start: 11-20-2024 End: 11-20-2024 ambulatory GIOVANNY TATUM Not Available Start: 10-07-2024 End: 10-07-2024 ambulatory [facility] Start: 07-30-2024 End: 07-30-2024 ambulatory LAMBERT JOSE Not Available Start: 07-15-2024 End: 07-15-2024 Office outpatient visit 15 minutes Debora Dunham MD Work Phone: [facility] Comment on above: Severe persistent as thma with (acute) exacerbation (CMS/HCC) (Primary Dx) Start: 07-15-2024 End: 07-15-2024 ambulatory DEBORA DUNHAM Not Available Start: 07-15-2024 End: 07-15-2024 Siria Dunham MD Work Phone: [facility] Start: 07-15-2024 End: 07-15-2024 Siria Dunham MD Work Phone: [facility] Start: 07-09-2024 End: 07-09-2024 ambulatory [facility] Start: 03-15-2023 End: 03-16-2023 ambulatory MARYURI JESSICA Facility:[facility] Start: 02-25-2023 End: 02-25-2023 ambulatory ANABELLE AGGARWAL . Facility:[facility] Start: 02-23-2023 End: 02-23-2023 ambulatory Yasmine Joaquin Other [facility] Other Start: 02-23-2023 Office outpatient vi sit 15 minutes Yasmine Joaquin [facility] Start: 02-17-2023 End: 02-17-2023 ambulatory Emma Guerrero Other [facility] Other Start: 02-17-2023 Office outpatient vi sit 15 minutes Emma Guerrero [facility] Start: 01-28-2023 Encounter for genera l adult medical examination without abnormal findings DR LAMBERT JOSE . [facility] Start: 01-21-2023 End: 01-22-[address] LAMBERT JOSE . Facility:[facility] Start: 01-21-2023 End: 01-22-2023 Encounter for general adult medical examination without abnormal findings DR LAMBERT JOSE . Facility:[facility] Start: 12-26-2022 End: 12-27-2022 ambulatory MARYURI JESSICA Facility:[facility] Start: 10-01-2022 End: 10-02-[address] JUSTINO SERNA Facility:[facility] Start: 09-02-2022 End: 10-12-[address] JUSTINO SERNA Facility:[facility] Start: 07-27-2022 End: 07-28-2022 ambulatory MARYURI [facility] Facility:[facility] Start: 06-30-2022 End: 07-01-2022 ambulatory MARYURI [facility] Facility:[facility] Start: 06-30-2022 End: 07-01-2022 ambulatory BRANDAN HOWARD Facility:[facility] Start: 05-30-2022 End: 05-31-[address] LAMBERT JOSE . Facility:[facility] Start: 04-18-2022 End: 04-19-[address] LAMBERT JOSE . Facility:[facility] Start: 04-09-2022 End: 04-10-[address] LAMBERT JOSE . Facility:[facility] Start: 03-24-2022 End: 03-25-[address] LAMBERT JOSE . Facility:[facility] Start: 02-15-2022 End: 02-15-2022 ambulatory Dimple Milligan Other [facility] Other Start: 02-15-2022 Office outpatient vi sit 15 minutes Dimple Milligan [facility] Procedures Date Procedure Procedure Detail Performing Clinician Start: 11-20-2024 Radiologic examinati on knee 1/2 views Giovanny SALDIVAR Work Phone: Start: 01-21-2023 PSA screening MARYURI [facility] Comment on above: Performed By: #### P [facility] #### [facility] [address] [place] [address] Dr. Navneet Godwin Start: 08-03-2022 History of placement of stent for coronary artery disease History of coronary artery stent placement Jr. Glenda RICHARDSON Work Phone: Plan of Treatment Date Care Activity Detail Author Start: 08-04-2025 End: 08-04-2025 Patient encounter procedure 08/04/2025 4:00 PM EDT Office Visit [facility] [address] [facility] [address] [place] [phone] Debora Dunham MD [address] [facility] [address] [place] [address] [facility] Start: 07-07-2025 Influenza vaccination Influenz a Vaccine (Season Ended) [facility] Start: 04-30-2025 End: 04-30-2025 Patient encounter procedure 04/30/2025 4:15 PM EDT Office Visit [facility] [address] [place] [phone] Angel Alcaraz, DPM [address] [place] [address] Arrived [facility] Comment on above: Arrived Start: 01-30-2025 End: 01-30-2025 Patient encounter procedure [facility] Comment on above: Arrived Start: 12-31-2024 End: 12-31-2024 Patient encounter procedure 12/31/2024 11:30 AM EST Office Visit [facility] [address] [place] [phone] Jr. Heraclio Doshi, [address] [address] [facility] Start: 12-06-2024 End: 12-06-2024 Patient [facility] Comment on above: Acute pain of left k nee (Primary Dx); Acute medial meniscus tear of left knee, initial encounter Start: 11-20-2024 End: 11-20-2025 MR Knee - left WO contrast MR knee left wo IV contrast Imaging Routine Internal derangement of left knee Expected: 11/20/2024 (Approximate), Expires: 11/20/2025 [facility] Work Phone: Comment on above: Expected: 11/20/2024 (Approximate), Expires: 11/20/2025 Start: 11-20-2024 End: 11-20-2024 Patient encounter procedure 11/20/2024 1:30 PM EST Office Visit [facility] [address] [facility] [place] [phone] Giovanny Tatum, JANNA [address] [facility] [address] [place] [address] Acute pain of left knee (Primary Dx) [facility] Comment on above: Acute pain of left k nee (Primary Dx) Start: 07-15-2024 End: 07-15-2024 Patient encounter procedure 07/15/2024 3:20 PM EDT Office Visit [facility] [address] [facility] [address] [place] [address] Debora Dunham MD [address] [facility] [address] [place] [address] Arrived [facility] Comment on above: Arrived Start: 07-07-2024 Influenza vaccination Influenza Vacc ine (#1) [facility] Start: 1965 Screening for malignant neoplasm of colon [facility] Payers Date Payer Category Payer Private Health Insurance [employer] [id number] 2022 Unknown [employer] [id number] 2022-Present [address] [place] [address] [id number] 1965 Unknown [id number] 2.16.840.1.227819.3.579.2. 593 1963 Unknown [id number] 2.16.840.1.686722.3.579.2. 593 1963 Unknown [id number] 2.16.840.1.587527.3.579.2. 593 1963 Unknown [id number] 2.16.840.1.434544.3.579.2. 593 1963 Unknown [id number] 2.16.840.1.604569.3.579.2. 593 1963 Unknown [id number] 2.16.840.1.110821.3.579.2. 593 1963 Unknown [id number] 2.16.840.1.253646.3.579.2. 593 1963 Unknown [id number] 2.16.840.1.254127.3.579.2. 593 1963 Unknown [id number] 2.16.840.1.717187.3.579.2. 593 1963 Unknown [id number] 2.16.840.1.305210.3.579.2. 593 1963 Unknown [id number] 2.16.840.1.915317.3.579.2. 593 1963 Unknown [id number] 2.16.840.1.685053.3.579.2. 593 1963 Unknown [id number] 2.16.840.1.529613.3.579.2. 593 1963 Unknown [id number] 2.16.840.1.642614.3.579.2. 1259 1963 Unknown [id number] 2.16.840.1.855545.3.579.2. 1258 1963 Unknown [id number] 2.16.840.1.649371.3.579.2. 1258 1963 Unknown [id number] 2.16.840.1.547390.3.579.2. 1258 1963 Unknown [id number] 2.16.840.1.403300.3.579.2. 1258 1963 Unknown [id number] 2.16.840.1.439031.3.579.2. 1258 1963 Unknown [id number] 2.16.840.1.802232.3.579.2. 1258 1963 Unknown [id number] 2.16.840.1.971526.3.579.2. 1258 1963 Unknown [id number] 2.16.840.1.727616.3.579.2. 727 1959 Unknown [id number] 2.16.840.1.232617.19 Social History Date Type Detail Facility Start: 03-28-2024 End: 01-30-2025 Sex Assigned At [facility] Other Start: 02-14-2024 End: 04-30-2025 Tobacco smoking status [facility] Ex-smoker [facility] Start: 12-11-1986 End: 10-27-2011 History of tobacco use Current smoker [facility] Start: 12-11-1986 End: 10-27-2011 History of tobacco use Cigarette Smoker [facility] Start: 02-14-2024 End: 04-30-2025 Tobacco use and exposure Former smokeless tobacco user [facility] End: 12-11-1994 History of tobacco use Snuff User [facility] Start: 07-15-2024 End: 04-30-2025 Alcoholic beverage intake Ex-drinker (finding) [facility] Start: 03-28-2024 End: 01-30-2025 History of Social function [facility] Start: 06-12-2023 Alcohol Comment Caffeine intak e: >4 cups per day [facility] Start: 1965 Sex assigned at Male [facility] Start: 06-05-2023 Gender identity Identifies as male gender (finding) [facility] Clinical Notes 02-15-2022 to 06-12-2025 Angel Alcaraz DPM - 04/30/2025 4:15 PM Uziel Dunham MD - 01/30/2025 4:00 PM EDTJiker Doshi, DO - 12/06/2024 8:15 AM JANNA Cohen - 11/20/2024 1:30 PM EST Note Date & Type Note Facility 06-12-2025 Note Patient: Paras rees Pre-sedation Evaluation: Moderate sedation History of Present [...] with acute exacerbation ([facility]) 11/23/2023 Essential hypertension 08/04/2022 COPD (chronic obstructive pulmonary disease) ([facility]) 08/04/2022 S/P drug eluting coronary stent placement 08/04/2022 CAD in [place] artery 08/03/2022 Dyspnea 06/07/2022 Shortness of breath 11/22/2018 Hyperplastic polyp of intestine 05/03/2017 VILLAVICENCIO (dyspnea on exertion) 06/06/2025 Chest pain 07/14/2022 Allergies: Allergies[2] 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 Barbara Abrams PGY-4 Prefabricator [facility] [1] Past Medical History: Diagnosis Date COPD [...] No current facility-administered medications for this encounter. [facility] 06-05-2025 Note Cardiovascular Medic [facility] SUBJECTIVE Chief Complaint Patient presents with Chest Pain Coronary Artery Disease Paras Grigsby is a 59 y.o. male here for [...] no further cardiac interventions needed at this time. BP at home running 140/70 Denies orthopnea, PND, LE edema, palpations, syncope. 06/05/2025 Patient here c/o SOB. He was seen last month by Damian Xavier CNP last month for routine [address] Says Dr. Jose just decreased his carvedilol to 12.5mg bid due to low BP's and lightheadedness. C/o chest pain also. Hasn't had echo or stress test since summer 2023. He notes for the past few weeks has not felt well. He has noticed increase SOB and chest pain with exertion. 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 Chest pain is left sided, non radiating, 5-6/10. Resting improves the pain and dyspnea. Denies any palpitations. He has some dizziness. He was experiencing some low BP's, dr. Jose reduced his coreg to 12.5mg BID. BP at home runing 100-120/60s Patient Active Problem List Diagnosis Chest pain CAD in [place] artery Essential hypertension COPD (chronic obstructive pulmonary disease) ([facility]) S/P drug eluting coronary stent placement Hyperplastic polyp of intestine Dyspnea Shortness of breath Severe persistent asthma with acute exacerbation ([facility]) Degeneration of intervertebral disc of cervical region [...] kg (247 lb) SpO2 96% BMI 38.69 kg/m??? Smoking Status Former BSA 2.3 m??? Medications: Current Outpatient Medications: aspirin 81 [...] leg: No edema. Skin: General: Skin is w (more content not included)... [facility] 06-05-2025 Note Patient here c/o SOB . He was seen last month by Damian Xavier CNP last month for routine 6 mo [...] All other systems reviewed and are negative. [facility] 04-30-2025 History of Present illness Narrative Images from the original note were not included. Subjective Patient ID: Paras Grigsby is a 59 y.o. male who presents for nail fungus FUV (Paras Grigsby is a 58yo patient presents with toenail fungus FUV. SS 9.5). HPI This is a new patient who presents to clinic with possible nail fungus of the left hallux. Patient was recently treated with Lamisil and noted minimal improvement. Patient denies any pain or issues with the toenail. He tries trimming it regularly but he states it does not grow very much. Review of Systems Constitutional: Negative for activity change and appetite change. Respiratory: Negative for chest tightness and shortness of breath. Cardiovascular: Positive for leg swelling. Negative for chest pain. Musculoskeletal: Positive for arthralgias. Skin: Negative for color change and wound. Neurological: Negative for weakness and numbness. Psychiatric/Behavioral: Negative for agitation and behavioral problems. Hematological: Does not bruise/bleed easily. Endocrine: Negative for cold intolerance and heat intolerance. Allergic/Immunologic: Negative for immunocompromised state. Past medical History Past Medical History: Diagnosis Date Asthma ([facility]) 2021 COPD (chronic obstructive pulmonary disease) ([facility]) 2021 History of medical problems 2012 precancerous throat polyps Hyperlipidemia Hypertension Medications Current Outpatient Medications: aspirin 81 MG chewable tablet, CHEW AND SWALLOW 1 TABLET IN THE MORNING, Disp: , Rfl: atorvastatin (Lipitor) 80 MG tablet, Take 80 mg by mouth at bedtime, Disp: , Rfl: carvedilol (Coreg) 25 MG tablet, Take 1 tablet by mouth in the morning and 1 tablet before bedtime., Disp: , Rfl: clopidogrel (Plavix) 75 MG tablet, Take 75 mg by mouth in the morning., Disp: , Rfl: diclofenac (Voltaren) 75 MG EC tablet, Take 75 mg by mouth in the morning and 75 mg before bedtime. Do not crush, chew, or split.., Disp: , Rfl: doxazosin (Cardura) 4 MG tablet, Take 1 tablet by mouth Daily, Disp: , Rfl: dupilumab (Dupixent) 300 MG/2ML injection, Inject 2 mL (300 mg) under the skin every 14 (fourteen) days, Disp: 4 mL, Rfl: 6 fenofibrate (Tricor) 145 MG tablet, Take 145 mg by mouth in the morning., Disp: , Rfl: ferrous sulfate 325 (65 Fe) MG tablet, Take 325 mg by mouth in the morning. Take with meals., Disp: , Rfl: furosemide (Lasix) 40 MG tablet, , Disp: , Rfl: hydrOXYzine HCl (Atarax) 50 MG tablet, Take by mouth., Disp: , Rfl: lisinopril 20 MG tablet, Take by mouth Daily., Disp: , Rfl: Allergies Patient has no known allergies. Past Surgical History Past Surgical History: Procedure Laterality Date CARDIAC SURGERY 07/2022 Heart stent placed KNEE SURGERY OTHER SURGICAL HISTORY 07/16/2013 DL with Excision of Left Pharyngeal Epiglottic mucosa ROTATOR CUFF REPAIR repair of bilat. torn rotator cuffs TONSILLECTOMY Family History Family History Problem Relation Name Age of Onset Diabetes Mother Mae Heart disease Father Floresita Diabetes Maternal Grandmother Mae Hypertension Maternal Grandmother Mae Heart disease Maternal Grandfather No Known Problems Paternal Grandmother No Known Problems Paternal Grandfather Objective Physical Exam Constitutional: General: He is not in acute distress. Appearance: He is obese. HENT: Head: Atraumatic. Cardiovascular: Pulses: Normal pulses. Musculoskeletal: Cervical back: No tenderness. Skin: Capillary Refill: Capillary refill takes less than 2 seconds. Comments: Left foot: Dystrophic hallux nail with thickening, subungual debris. No dermatophytic spikes. Slight yellow discoloration. No tenderness with manipulation of the nail. Neurological: General: No focal deficit present. Mental Status: He is alert. Psychiatric: Mood and Affect: Mood normal. Behavior: Behavior normal. Assessment/Plan ICD-10-CM 1. Onychodystrophy L60.3 2. Onychomycosis B35.1 Patient examined and evaluated. My opinion is that the nail changes of the left hallux are due to repeated microtrauma and onychodystrophy. Discussed small possibility of onychomycosis. Discussed treatment options. At this point he does not have any interest in doing oral Lamisil. Discussed phenol matricectomy but at this time he has very minimal symptomatology associated with the nail. For now I was able to debride the nail in length and thickness to reduce risk of trauma to the toenail. I would like to see him back on an as-needed basis. If he would experience worsening symptomatology we could consider phenol matricectomy. This note was created with the assistance of a speech recognition program. While intending to generate a timely document that accurately reflects the content of the visit, no guarantee can be provided that every grammatical or spelling mistake has been or will be identified or corrected. Thank you for your understanding. Angel Alcaraz DPM documented in this encounter [facility] 04-18-2025 Note Patient here today f or a 6 month. Patient states he been sick with the URI x1 week. Patient taking ATB. Patient state he still has VILLAVICENCIO, lightheaded. Review of Systems Cardiovascular: Positive for dyspnea on exertion. Neurological: Positive for light-headedness. [facility] 04-18-2025 Note SUBJECTIVE Reason for Visit: Paras [...] Rate 08/03/2022 53 Atrial Rate 08/03/2022 53 MT Interval 08/03/2022 164 QRS DURATION 08/03/2022 100 QT Interval 08/03/2022 424 QTC CALCULATION(BAZETT) 08/03/2022 397 P [place] 08/03/2022 39 R-[place] 08/03/2022 -7 T Wave [place] 08/03/2022 51 Auto WBC 08/03/2022 4.48 RBC [...] Rate 08/03/2022 50 Atrial Rate 08/03/2022 50 MT Interval 08/03/2022 170 QRS DURATION 08/03/2022 104 QT Interval 08/03/2022 436 QTC CALCULATION(BAZETT) 08/03/2022 397 P [place] 08/03/2022 50 R-[place] 08/03/2022 4 T (more content not included)... [facility] 01-30-2025 History of Present illness Narrative Paras [...] should problems arise. documented in this encounter [facility] 12-06-2024 History of Present illness Narrative Images from the original note were not included. HISTORY OF PRESENT ILLNESS: EST PT Paras Grigsby is an 59 y.o. @ male. (EST PT-PREVIOUSLY SAW ROSENDO TATUM ON 11/20/24) RECHECK LT KNEE PAIN ~2 MONTHS. PT FELT A POP IN KNEE- PT STATES PAIN IS IMPROVING. HERE FOR MRI RESULTS, DONE ON 11/27/24 AT [facility]. PT IS ON PLAVIX XRAY LT KNEE 11/20/24 EPIC MRI LT KNEE 11/27/24 EPIC ([facility]) NO CORTISONE INJ NO MDP/PREDNISONE HX LT [...] of said treatment. documented in this encounter [facility] 11-20-2024 History of Present illness Narrative Images [...] HISTORY: Past Medical History: Diagnosis Date Asthma ([facility]) 2021 COPD (chronic obstructive pulmonary disease) ([facility]) 2021 History of medical problems 2012 precancerous throat polyps Hyperlipidemia ([facility]) Hypertension ([facility]) PAST SURGICAL HISTORY: Past Surgical [...] requiring urgent evaluation. documented in this encounter [facility] 10-07-2024 Note [facility] Clinic Note Chief Complaint: Patient [...] history of COPD (chronic obstructive pulmonary disease) ([facility]), Coronary artery disease, Hyperlipidemia, Hypertension, [...] 109, BUN 1 (more content not included)... [facility] 07-15-2024 History of Present illness Narrative Paras [...] should problems arise. documented in this encounter [facility] 07-09-2024 Note [facility] Clinic Note Chief Complaint: Patient [...] history of COPD (chronic obstructive pulmonary disease) ([facility]), Coronary artery disease, Hyperlipidemia, Hypertension, [...] Labs from 12/08 (more content not included)... [facility] 02-23-2023 Evaluation note Encounter Date Diagnosis Assessment Notes Feb, Urticaria (ICD-10 - L50.9) Discussed diagnosis with patient. We will send in Rx of prednisone taper to use as directed. Continue [id number] Benadryl/Zyrtec or Claritin. Advised patient to avoid hot showers/baths encouraged use of cool compresses. Patient needs to follow-up with PCP if this rash does not improve with treatment. Immediate evaluation in ER for signs and symptoms as discussed. Patient verbalizes understanding and is agreeable to treatment plan. [facility] 04-14-2023 Evaluation note* Encounter Date Diagnosis [...] concerns Feb, Acute cough (ICD-10 - R05.1) [facility] 04-12-2022 Evaluation note* Encounter Date Diagnosis Assessment Notes Treatment Notes Treatment Clinical Notes Feb, Infected tooth (ICD-10 - K04.7) Take medications as directed.Highly encourage patient to contact dentist TIARA for further treatment of infection. Do not take OTC medications like ibuprofen with prescriptions [facility] Other Evaluation note* Diagnosis Severe persistent asthma with (acute) exacerbation (CMS/HCC)- Primary documented in this encounter [facility] HealthcareEvaluation note* Diagnosis Acute pain of left knee- Primary Internal derangement of left knee documented in this encounter [facility] HealthcareEvaluation note* Diagnosis Acute pain of left knee- Primary Acute medial meniscus tear of left knee, initial encounter documented in this encounter [facility] note* Diagnosis Severe persistent asthma without complication (CMS/HCC)- Primary documented in this encounter [facility] HealthcareEvaluation note* Diagnosis Onychodystrophy- Primary Other specified disease of nail Onychomycosis Dermatophytosis of nail documented in this encounter [facility] HealthcareHistory general Narrative - Reported* Type Description Date Medical History Benign essential HTN Surgical History knee surgery Surgical History shoulder surgery Surgical History tonsillectomy and adenoidectomy Surgical History wisdom teeth Surgical History vasectomy Hospitalization History see above [facility] Other History general Narrative - Reported* Type Description Date Medical History Benign essential HTN Medical History High cholesterol Surgical History knee surgery Surgical History shoulder surgery Surgical History tonsillectomy and adenoidectomy Surgical History wisdom teeth Surgical History vasectomy Surgical History stent 2021 Hospitalization History see above [facility] Other Summary Purpose Family History No Family History Records FoundNo Family History Records FoundNo Family History Records FoundNo Family History Records Found Advance Directives No Advanced Directives Records FoundNo Advanced Directives Records FoundNo Advanced Directives Records FoundNo Advanced Directives Records Found Additional Source Comments REASON FOR VISIT (unrecogniz ed section and content) Reason Comments Follow-up No surgeries; no hos pital stays. Reason Comments Pain Reason Comments Follow-up Reason Comments nail fungus FUV Paras Grigsby is a 58yo patient presents with toenail fungus FUV. SS 9.5 (unrecognized sect ion and content) No Status Records FoundNo Status Records FoundNo Status Records FoundNo Status Records Found INFORMATION SOURCE (unrecogn ized section and content) DATE CREATED AUTHOR 03/19/2023 [facility] DATE CREATED AUTHOR AUTHOR'S ORGANIZ ATION 05/02/[address] [facility] EPIC DATE CREATED AUTHOR AUTHOR'S ORGANIZ ATION 06/16/2025 [facility] DATE CREATED AUTHOR AUTHOR'S ORGANIZ ATION 06/17/2025 [facility] Teams (unrecognized sec tion and content) [employer] Relationship Specialty Start Date End Date Lambert Jose MD [address] [place] [address] PCP - General 06/05/23 [employer] Relationship Specialty Start Date End Date Lambert Jose MD [address] [place] [address] PCP - General 06/05/23 [employer] Relationship Specialty Start Date End Date Lambert Jose MD [address] [place] [address] PCP - General 06/05/23 [employer] Relationship Specialty Start Date End Date Lambert Jose MD [address] [place] [address] PCP - General 06/05/23 [employer] Relationship Specialty Start Date End Date Lambert Jose MD [address] [place] [address] PCP - General 06/05/23 [employer] Relationship Specialty Start Date End Date Lambert Jose MD [address] [place] [address] PCP - General 06/05/23 [employer] Relationship Specialty Start Date End Date Lambert Jose MD [address] [place] [address] PCP - General 06/05/23 [employer] Relationship Specialty Start Date End Date Lambert Jose MD [address] [place] [address] PCP General 06/05/23 FOR RECORDS PERTAINING TO PATIENTS [...] BE BASED ON THE PRIMARY CLINICAL RECORDS. [facility]. provides no warranty or guarantee of the accuracy or completeness of information in this document.
== END 2025-06-25 15:43 | disposition home or self-care (01) ==
PROVIDERS: PCP Family Medicine; Visit Provider Nurse Practitioner Family
DX: R06.02 Shortness of breath (principal); I25.10 Atherosclerotic heart disease of native coronary artery without angina pectoris
CPT/HCPCS: 93306

== ENCOUNTER 2025-07-10 14:28 | Outpatient (OUT) | payer OTHER, SELFPAY ==
--- OUTSIDE RECORDS SUMMARY | 2025-07-10 14:42 | XMS_ITS | CCD ---
Author Organization [facility] Care Team Providers Care Acquisitions Librarian Name Role Phone Dimple Milligan Unavailable YolandaDyanEmma [...] Unavailable HOY ., DR VERDIN Admitting Unavailable MELVIN, DR PADMINI Ravi Consulting Unavailable HOY ., [...] Unavailable MARTINA ., DR VERDIN Attending Unavailable SONY ., DR VERDIN Admitting Unavailable MORENO, WINCHA Consulting Unavailable ELTAHAWY, DR CHACON Consulting Unavailable MARTINA ., DR VERDIN Primary Care Unavailable ELTAHAWY, DR CHACON Attending Unavailable ELTAHAWY, DR CHACON Admitting Unavailable Lambert Jose MD Primary Care Provider [phone] Lambert Jose MD Primary Care Provider [phone] GIOVANNY TATUM Referring Unavailable JR. DOSHI GEORGE C Attending UnavailDEBORA Santos Attending Unavailable LAMBERT JOSE Referring Unavailable DEBORA DUNHAM Attending Unavailable ANGEL ALCARAZ Attending Unavailable GIOVANNY TATUM Attending Unavailable GIOVANNY TATUM Referring Unavailable HERACLIO RIVAS Admitting Unavailable HERACLIO RIVAS Attending Unavailable HERACLIO RIVAS Referring Unavailable JUSTINO SERNA Attending Unavailable ELTAPARVEZ, JUSTINO Attending Unavailable DAMIAN XAVIER Attending Unavailable ISAAC TANG Attending Unavailable Lee HALE Attending Unavailable Lambert Jose Referring Unavailable Allergies Allergy Classification Reported Allergen(s) Allergy Type Date of Onset Reaction(s) Facility (1 source) No Known Medication Allergies; Translations: [No Known Medication Allergies] Propensity to adverse reactions (disorder) [facility] Medications Current Medications Medication Drug [...] oral tablet (19 sources) alpha-Adrenergic Kali, beta-Adrenergic Akli take 1 tablet by mouth in the [...] disease (16 sources) Atherosclerotic heart disease of [place] coronary artery without angina pectoris; Translations: [Coronary [...] 03-15-2023 Episodic Other aftercare (1 source) Other termite treater (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) drug therapy; Translations: [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 CURRENT DRUG THERAPY] Onset: 03-18-2023 Episodic Other aftercare (1 source) half-way (current) use of aspirin; Translations: [PUMPING 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 CURRENT USE OF ASPIRIN] Onset: 02-27-2023 Episodic [...] Test Name Value Interpretation Reference Range Facility Orders Onlyon 06-26-2025 Orders Only [id number] Jada Grigsby 1965 M Date Provider Department Center 06/26/2025 [id number] SALDANA Family History Problem Relation Age of Onset Heart failure Father Coronary artery disease Father Family Status - Relation Status [facility] Mother [facility] reviewed. The patient was examined and there are no changes to the H&P. Will proceed with coronary angiography and right heart catheterization for further evaluation of his symptoms. Consent for blood products obtained. Risks, benefits, and alternatives to procedure discussed with patient in detail who expressed understanding and agreed to proceed. [facility] NURSNOTEon 06-12-2025 NURSNOTE RN educated pt on [...] off of unit with all of belongings. [facility] Orders Onlyon 06-06-2025 Orders Only [id number] Jada Grigsby 1965 M Date Provider Department Center 06/06/2025 [id number] BAIRES Family History Problem Relation Age of Onset Heart failure Father Coronary artery disease Father Family Status - Relation Status Age at Mother Father [facility] HPon 06-05-2025 Cardiovascular Medicine [facility] SUBJECTIVE Chief Complaint Patient presents with [...] and chest pain with exertion. 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 grandchildren or get up into [...] Problem List Diagnosis Chest pain CAD in [place] artery Essential hypertension COPD (chronic obstructive pulmonary disease) (CMS/HCC) S/P drug eluting coronary stent placement Hyperplastic polyp of intestine Dyspnea Shortness of breath Severe persistent asthma with acute exacerbation (CMS/HCC) Degeneration of intervertebral disc of cervical region Other cervical disc displacement at C6-C7 level Radiculopathy, cervical region Spinal stenosis, cervical region Hypertensive retinopathy Umbilical hernia VILLAVICENCIO (dyspnea on exertion) Past Medical History: Diagnosis Date COPD (chronic obstructive pulmonary disease) ([facility]) Coronary artery disease Hyperlipidemia Hypertension Sleep [...] is w (more content not included)... Normal [facility] Office Visiton 06-05-2025 Follow-up visit [id number] Jada Grigsby 1965 M Date Provider Department Center 06/05/2025 ISAAC TELLEZ Family History Problem Relation Age of Onset Heart failure Father Coronary artery disease Father Family Status - Relation Status Age at Mother Father Level of Service:12227 CT OFFICE/OUTPATIENT ESTABLISHED MOD MDM 30 MIN Reason for Visit and Comments: Chest Pain [235771] Coronary Artery Disease [187] Normal [facility] Orders Onlyon 04-25-2025 Orders Only [id number] Jada Grigsby 1965 M Date Provider Department Center 04/25/2025 DAMIAN VARGAS Family History Problem Relation Age of Onset Heart failure Father Coronary artery disease Father Family Status - Relation Status Age at Mother Father Normal [facility] Office Visiton 04-18-2025 Follow-up visit [id number] Jada Grigsby 1965 M Date Provider Department Center 04/18/2025 DAMIAN VARGAS Family History Problem Relation Age of Onset Heart failure Father Coronary artery disease Father Family Status - Relation Status Age at Mother Father Level of Service:12045 CT OFFICE/OUTPATIENT ESTABLISHED MOD MDM 30 MIN Normal [facility] MR KNEE LEFT WO IV CONTRASTo n [...] tibial plateau. ELECTRONICALLY SIGNED BY: Varun Ceballos, Normal Not Available XR Knee - left [...] knee with age indeterminate metallic foreign body. [facility] Radiology Study observation (narrative) [facility] Office Visiton 10-07-2024 Follow-up visit [id number] Jada Grigsby 1965 M Date Provider Department Center 10/07/2024 Delaney-JUSTINO SERNA [facility] Nathalie Buck Family History Problem Relation Age of Onset Heart failure Father Coronary artery disease Father Family Status - Relation Status Age at Father Level of Service:46269 CT OFFICE/OUTPATIENT ESTABLISHED LOW MDM 20 MIN Normal [facility] MR CERVICAL SPINE WO CONTRAS Ton 07-30-2024 [...] about an MRI and/or referral to a equipment application specialist Pt was informed about the message Normal [facility] Office Visiton 07-09-2024 Follow-up visit [id number] Jada Grigsby Yessica 1965 M Date Provider Department Center 07/09/2024 Delaney-JUSTINO SERNA [facility] Family History Problem Relation Age of Onset Heart failure Father Coronary artery disease Father Family Status - Relation Status Age at Father Level of Service:24178 CT OFFICE/OUTPATIENT ESTABLISHED MOD MDM 30 MIN Normal [facility] THEOPHYLLINEon 03-15-2023 THEOPHYLLINE 5.9 ug/mL Critically low 10.0-20.0 [facility] Comment on above: Performed By: #### T ALAN #### [facility] [address] [place] [address] Dr. Navneet Aguilar CHUCKIE by IFAon 01-23-2023 Antinuclear Antibodies, IFA Positive Abnormal [facility] Comment on above: Result Comment: Nega tive <1:80 Borderline 1:80 Positive >1:80 Performed By: #### C BC #### [facility] [address] [address] [address] Navneet Aguilar Centriole Pattern Normal [facility] Comment on above: Performed By: #### C BC #### [facility] [address] [address] [address] Navneet Aguilar Centromere Pattern Normal [facility] Comment on above: Performed By: #### C BC #### [facility] [address] [address] [address] Navneet Aguilar Homogeneous Pattern 1:80 Normal [facility] Comment on above: Result Comment: ICAP nomenclature: AC-1 Performed By: #### C BC #### [facility] [address] [address] [address] Navneet Aguilar Midbody Pattern Normal [facility] Comment on above: Performed By: #### C BC #### [facility] [address] [address] [address] Navneet Aguilar Note: Comment Normal [facility] Comment on above: Result Comment: For [...] titers Nucleosomes, Histones Drug-induced SLE Speckled Sm, HAND EDGE BANDER, SCL-70, SLE,MCTD,PSS (diffuse form), SS-A/SS-B Sjogrens Nucleolar SCL-70, PM-1/SCL High titers Scleroderma, PM/DM Centromere Centromere PSS (limited form) w/Crest syndrome variable Nuclear Dot Sp100,[id number]-[id number] Primary Biliary Cirrhosis Nuclear GP210, Primary Biliary Cirrhosis Membrane ofelia A,B,C Performed By: #### C BC #### [facility] [address] [place] [address] Dr. Navneet Aguilar Nuclear Dot Pattern Normal [facility] Comment on above: Performed By: #### C BC #### [facility] [address] [place] [address] Dr. Navneet Aguilar Nuclear Membrane Pattern Normal [facility] Comment on above: Performed By: #### C BC #### [facility] [address] [place] [address] Dr. Navneet Aguilar Nucleolar Pattern Normal [facility] Comment on above: Performed By: #### C BC #### [facility] [address] [place] [address] Dr. Navneet Aguilar PCNA Pattern Normal [facility] Comment on above: Performed By: #### C BC #### [facility] [address] [place] [address] Dr. Navneet Aguilar Speckled Pattern Normal [facility] Comment on above: Performed By: #### C BC #### [facility] [address] [place] [address] Dr. Navneet Aguilar Spindle Apparatus Pattern Normal [facility] Comment on above: Performed By: #### C BC #### [facility] [address] [place] [address] Dr. Navneet Aguilar INSULINon 01-23-2023 Insulin 50.9 uIU/mL Critically high 2.6-24.9 [facility] Comment on above: Performed By: #### I NSULIN #### [facility] [address] [place] [address] Dr. Navneet Aguilar ANTISTREPTOLYSIN O AB (ASO)o n 01-22-2023 Antistreptolysin O Ab 55.6 IU/mL Normal 0.0-200.0 [facility] Comment on above: Performed By: #### H GB #### [facility] [address] [place] [address] Dr. Navneet Aguilar RHEUMATOID FACTORon 01-23-20 RA Latex Turbid. <10.0 Normal <14.0 [facility] Comment on above: Performed By: #### H GB #### [facility] [address] [place] [address] Dr. Navneet Aguilar CBC AUTO DIFFon 01-21-2023 BASO # 0.0 103/ul Normal 0.0-0.1 [facility] Comment on above: Performed By: #### C BC #### [facility] [address] [place] [address] Dr. Navneet Aguilar Basophils/100 WBC (Bld) 0.8 % Normal 0.2-2.0 [facility] Comment on above: Performed By: #### C BC #### [facility] [address] [place] [address] Dr. Navneet Aguilar EO # 0.1 103/ul Normal 0.0-0.7 [facility] Comment on above: Performed By: #### C BC #### [facility] [address] [place] [address] Dr. Navneet Aguilar Eosinophils/100 WBC (Bld) 2.1 % Normal 0.9-7.0 [facility] Comment on above: Performed By: #### C BC #### [facility] [address] [place] [address] Dr. Navneet Aguilar Erythrocyte distribution width (RBC) [Ratio] 13.7 % Normal 11.0-15.0 [facility] Comment on above: Performed By: #### C BC #### [facility] [address] [place] [address] Dr. Navneet Aguilar Hematocrit (Bld) [Volume fraction] 37.6 % Critically low 42.0-54.0 [facility] Comment on above: Performed By: #### C BC #### [facility] [address] [place] [address] Dr. Navneet Aguilar Hemoglobin (Bld) [Mass/Vol] 12.7 g/dL Critically low 14.0-18.0 [facility] Comment on above: Performed By: #### C BC #### [facility] [address] [place] [address] Dr. Navneet Aguilar IG # 0.01 10e3/ul Normal 0.00-0.03 [facility] Comment on above: Performed By: #### C BC #### [facility] [address] [place] [address] Dr. Navneet Aguilar IG % 0.2 % Normal 0.0-0.5 [facility] Comment on above: Performed By: #### C BC #### [facility] [address] [place] [address] Dr. Navneet Aguilar LYMPH # 1.8 103/ul Normal 1.2-3.8 [facility] Comment on above: Performed By: #### C BC #### [facility] [address] [place] [address] Dr. Navneet Aguilar Lymphocytes/100 WBC (Bld) 33.1 % Normal 20.5-60.0 [facility] Comment on above: Performed By: #### C BC #### [facility] [address] [place] [address] Dr. Navneet Aguilar MANUAL DIFF REQ NO Normal [facility] Comment on above: Performed By: #### C BC #### [facility] [address] [place] [address] Dr. Navneet Aguilar MCH (RBC) [Entitic mass] 29.4 pg Normal 25.9-34.0 [facility] Comment on above: Performed By: #### C BC #### [facility] [address] [place] [address] Dr. Navneet Aguilar MCHC (RBC) [Mass/Vol] 33.8 g/dL Normal 29.9-35.2 [facility] Comment on above: Performed By: #### C BC #### [facility] [address] [address] [address] Navneet Aguilar MCV (RBC) [Entitic vol] 87.0 fL Normal 80.0-94.0 [facility] Comment on above: Performed By: #### C BC #### [facility] [address] [address] [address] Navneet Aguilar MONO # 0.4 103/ul Normal 0.3-0.8 [facility] Comment on above: Performed By: #### C BC #### [facility] [address] [address] [address] Navneet Aguilar Monocytes/100 WBC (Bld) 8.1 % Normal 1.7-12.0 [facility] Comment on above: Performed By: #### C BC #### [facility] [address] [place] [address] Dr. Navneet Aguilar NEUT # 2.9 103/ul Normal 1.4-6.5 [facility] Comment on above: Performed By: #### C BC #### [facility] [address] [place] [address] Dr. Navneet Aguilar Neutrophils/100 WBC (Bld) 55.7 % Normal 43.0-75.0 [facility] Comment on above: Performed By: #### C BC #### [facility] [address] [place] [address] Dr. Navneet Aguilar Platelet mean volume (Bld) [Entitic vol] 10.6 fL Normal 9.5-13.5 [facility] Comment on above: Performed By: #### C BC #### [facility] [address] [place] [address] Dr. Navneet Aguilar PLT 236 103/ul Normal 150-450 [facility] Comment on above: Performed By: #### C BC #### [facility] [address] [place] [address] Dr. Navneet Aguilar RBC 4.32 106/ul Critically low 4.70-6.10 [facility] Comment on above: Performed By: #### C BC #### [facility] [address] [address] [address] Navneet Aguilar WBC 5.3 103/ul Normal 4.0-11.0 [facility] Comment on above: Performed By: #### C BC #### [facility] [address] [address] [address] Navneet Aguilar CRPon 01-21-2023 CRP [Mass/Vol] mg/L Normal <=1.0 [facility] Comment on above: Performed By: #### H GB #### [facility] [address] [place] [address] Dr. Navneet Aguilar FREE THYROXINE INDEX T7on FTI 2.59 Normal 1.30-4.50 [facility] Comment on above: Performed By: #### C BC #### [facility] [address] [place] [address] Dr. Navneet Aguilar T3U 32.0 % Critically low 33.0-40.0 [facility] Comment on above: Performed By: #### C BC #### [facility] [address] [place] [address] Dr. Navneet Aguilar T4 [Mass/Vol] 8.10 ug/dL Normal 4.50-12.10 [facility] Comment on above: Performed By: #### C BC #### [facility] [address] [place] [address] Dr. Navneet Aguilar GLYCOHEMOGLOBIN A1Con 2022 ADA RECOMMENDATION SEE BELOW Normal [facility] Comment on above: Result Comment: ADA RECOMMENDED LIMIT 4.0 - 6.0 ADA THERAPEUTIC TARGET < 7.0 ACTION SUGGESTED > 7.0 Performed By: #### H GB #### [facility] [address] [address] [address] Navneet Aguilar Glucose [Mass/Vol] 126 mg/dL Normal [facility] Comment on above: Performed By: #### H GB #### [facility] [address] [place] [address] Dr. Navneet Aguilar HbA1c (Bld) [Mass fraction] 6.0 % Normal 4.5-6.2 [facility] Comment on above: Performed By: #### H GB #### [facility] [address] [address] [address] Navneet Aguilar LIPID PROFILEon 01-21-2023 CHOL-HDL RATIO NORM SEE BELOW Normal [facility] Comment on above: Result Comment: 3.3 - 4.4 LOW RISK 4.4 - 7.1 AVERAGE RISK 7.1 - 11.0 MODERATE RISK >11.0 HIGH RISK Performed By: #### C BC #### [facility] [address] [address] [address] Navneet Aguilar Cholesterol [Mass/Vol] 96 mg/dL Normal <=200 [facility] Comment on above: Performed By: #### C BC #### [facility] [address] [address] [address] Navneet Aguilar Cholesterol in HDL [Mass/Vol] 45 mg/dL Normal 40-60 [facility] Comment on above: Performed By: #### C BC #### [facility] [address] [address] [address] Navneet Aguilar Cholesterol in LDL [Mass/Vol] 37.2 mg/dL Normal [facility] Comment on above: Performed By: #### C BC #### [facility] [address] [address] [address] Navneet Aguilar Cholesterol.total/Cho lesterol in HDL [Mass ratio] 2.1 {ratio} Normal [facility] Comment on above: Performed By: #### C BC #### [facility] [address] [address] [address] Navneet Aguilar HDL NORMAL > or = 60 mg/dl - LO W CARDIOVASCULAR RISK <40 mg/dl - HIGH CARDIOVASCULAR RISK Normal [facility] Comment on above: Performed By: #### C BC #### [facility] [address] [address] [address] Navneet Aguilar LDL CALC NORMAL SEE BELOW Normal [facility] Comment on above: Result Comment: <100 mg/dl OPTIMAL 100 - 129 mg/dl NEAR OR ABOVE OPTIMAL 130 - 159 mg/dl BORDERLINE HIGH 160 - 189 mg/dl HIGH >190 mg/dl VERY HIGH Performed By: #### C BC #### [facility] [address] [place] [address] Dr. Navneet Aguilar Triglyceride [Mass/Vol] 69 mg/dL Normal <=150 [facility] Comment on above: Performed By: #### C BC #### [facility] [address] [address] [address] Navneet Aguilar VLDL CALC 13.8 mg/dL Normal [facility] Comment on above: Performed By: #### C BC #### [facility] [address] [place] [address] Dr. Navneet Aguilar OCC BLD IMMUNO SCREENon 01-04 OCCULT BLOOD Negative Normal NEGATIVE [facility] Comment on above: Performed By: #### O BSCRN #### [facility] [address] [place] [address] Dr. Navneet Aguilar PROF 14(COMP METB)on 023 Albumin [Mass/Vol] 4.1 g/dL Normal 3.4-5.0 [facility] Comment on above: Performed By: #### C BC #### [facility] [address] [place] [address] Dr. Navneet Aguilar Albumin/Globulin [Mass ratio] 1.4 {ratio} Normal [facility] Comment on above: Performed By: #### C BC #### [facility] [address] [place] [address] Dr. Navneet Aguilar ALP [Catalytic activity/Vol] 40 U/L Critically low 46-116 [facility] Comment on above: Performed By: #### C BC #### [facility] [address] [place] [address] Dr. Navneet Aguilar ALT [Catalytic activity/Vol] 33 U/L Normal 16-63 [facility] Comment on above: Performed By: #### C BC #### [facility] [address] [place] [address] Dr. Navneet Aguilar Anion gap [Moles/Vol] 14.6 mmol/L Normal [facility] Comment on above: Performed By: #### C BC #### [facility] [address] [place] [address] Dr. Navneet Aguilar AST [Catalytic activity/Vol] 33 U/L Normal 15-37 [facility] Comment on above: Performed By: #### C BC #### [facility] [address] [place] [address] Dr. Navneet Aguilar Bilirubin [Mass/Vol] 0.4 mg/dL Normal 0.2-1.0 [facility] Comment on above: Performed By: #### C BC #### [facility] [address] [place] [address] Dr. Navneet Aguilar Calcium [Mass/Vol] 9.2 mg/dL Normal 8.5-10.1 [facility] Comment on above: Performed By: #### C BC #### [facility] [address] [place] [address] Dr. Navneet Aguilar Chloride [Moles/Vol] 109 mmol/L Critically high 98-107 [facility] Comment on above: Performed By: #### C BC #### [facility] [address] [place] [address] Dr. Navneet Aguilar CO2 [Moles/Vol] 23.1 mmol/L Normal 21.0-32.0 [facility] Comment on above: Performed By: #### C BC #### [facility] [address] [place] [address] Dr. Navneet Aguilar Creatinine [Mass/Vol] 1.12 mg/dL Normal 0.70-1.30 [facility] Comment on above: Performed By: #### C BC #### [facility] [address] [place] [address] Dr. Navneet Aguilar EGFR-AF KITT[place]IAN >60 Normal >=60 [facility] Comment on above: Performed By: #### C BC #### [facility] [address] [place] [address] Dr. Navneet Aguilar EGFR-NON AF [place]IAN >60 Normal >=60 [facility] Comment on above: Performed By: #### C BC #### [facility] [address] [place] [address] Dr. Navneet Aguilar Globulin (S) [Mass/Vol] 2.9 g/dL Normal [facility] Comment on above: Performed By: #### C BC #### [facility] [address] [place] [address] Dr. Navneet Aguilar Glucose [Mass/Vol] 109 mg/dL Critically high 74-106 [facility] Comment on above: Performed By: #### C BC #### [facility] [address] [address] [address] Navneet Aguilar Potassium [Moles/Vol] 3.7 mmol/L Normal 3.5-5.1 [facility] Comment on above: Performed By: #### C BC #### [facility] [address] [place] [address] Dr. Navneet Aguilar Protein [Mass/Vol] 7.0 g/dL Normal 6.4-8.2 [facility] Comment on above: Performed By: #### C BC #### [facility] [address] [place] [address] Dr. Navneet Aguilar Sodium [Moles/Vol] 143 mmol/L Normal 136-145 [facility] Comment on above: Performed By: #### C BC #### [facility] [address] [place] [address] Dr. Navneet Aguilar Urea nitrogen [Mass/Vol] 18.0 mg/dL Normal 7.0-18.0 [facility] Comment on above: Performed By: #### C BC #### [facility] [address] [place] [address] Dr. Navneet Aguilar Urea nitrogen/Creatinine [Mass ratio] 16.1 mg/mg Normal [facility] Comment on above: Performed By: #### C BC #### [facility] [address] [place] [address] Dr. Navneet Aguilar TSHon 01-21-2023 TSH 1.912 uIU/mL Normal 0.358-3.740 [facility] Comment on above: Performed By: #### H GB #### [facility] [address] [place] [address] Dr. Navneet Aguilar URIC ACID SERUMon 01-21-2023 Urate [Mass/Vol] 6.9 mg/dL Normal 3.5-7.2 [facility] Comment on above: Performed By: #### H GB #### [facility] [address] [address] [address] Navneet Aguilar THEOPHYLLINEon 12-26-2022 THEOPHYLLINE 5.3 ug/mL Critically low 10.0-20.0 [facility] Comment on above: Performed By: #### C BC #### [facility] [address] [address] [address] Navneet Aguilar LIPID PROFILEon 10-01-2022 CHOL-HDL RATIO NORM SEE BELOW Normal [facility] Comment on above: Result Comment: 3.3 - 4.4 LOW RISK 4.4 - 7.1 AVERAGE RISK 7.1 - 11.0 MODERATE RISK >11.0 HIGH RISK Performed By: #### L IPID, CMP #### [facility] [address] [address] [address] Navneet Aguilar Cholesterol [Mass/Vol] 92 mg/dL Normal <=200 [facility] Comment on above: Performed By: #### L IPID, CMP #### [facility] [address] [address] [address] Navneet Aguilar Cholesterol in HDL [Mass/Vol] 40 mg/dL Normal 40-60 [facility] Comment on above: Performed By: #### L IPID, CMP #### [facility] [address] [address] [address] Navneet Aguilar Cholesterol in LDL [Mass/Vol] 33.2 mg/dL Normal [facility] Comment on above: Performed By: #### L IPID, CMP #### [facility] [address] [address] [address] Navneet Aguilar Cholesterol.total/Cho lesterol in HDL [Mass ratio] 2.3 {ratio} Normal [facility] Comment on above: Performed By: #### L IPID, CMP #### [facility] [address] [address] [address] Navneet Aguilar HDL NORMAL > or = 60 mg/dl - LO W CARDIOVASCULAR RISK <40 mg/dl - HIGH CARDIOVASCULAR RISK Normal [facility] Comment on above: Performed By: #### L IPID, CMP #### [facility] [address] [address] [address] Navneet Aguilar LDL CALC NORMAL SEE BELOW Normal [facility] Comment on above: Result Comment: <100 mg/dl OPTIMAL 100 - 129 mg/dl NEAR OR ABOVE OPTIMAL 130 - 159 mg/dl BORDERLINE HIGH 160 - 189 mg/dl HIGH >190 mg/dl VERY HIGH Performed By: #### L IPID, CMP #### [facility] [address] [address] [address] Navneet Aguilar Triglyceride [Mass/Vol] 94 mg/dL Normal <=150 [facility] Comment on above: Performed By: #### L IPID, CMP #### [facility] [address] [address] [address] Navneet Aguilar VLDL CALC 18.8 mg/dL Normal [facility] Comment on above: Performed By: #### L IPID, CMP #### [facility] [address] [address] [address] Navneet Aguilar PROF 14(COMP METB)on 022 Albumin [Mass/Vol] 3.6 g/dL Normal 3.4-5.0 [facility] Comment on above: Performed By: #### L IPID, CMP #### [facility] [address] [place] [address] Dr. Navneet Aguilar Albumin/Globulin [Mass ratio] 1.2 {ratio} Normal [facility] Comment on above: Performed By: #### L IPID, CMP #### [facility] [address] [address] [address] Navneet Aguilar ALP [Catalytic activity/Vol] 45 U/L Critically low 46-116 [facility] Comment on above: Performed By: #### L IPID, CMP #### [facility] [address] [address] [address] Navneet Aguilar ALT [Catalytic activity/Vol] 25 U/L Normal 16-63 [facility] Comment on above: Performed By: #### L IPID, CMP #### [facility] [address] [address] [address] Navneet Aguilar Anion gap [Moles/Vol] 13.5 mmol/L Normal [facility] Comment on above: Performed By: #### L IPID, CMP #### [facility] [address] [address] [address] Navneet Aguilar AST [Catalytic activity/Vol] 37 U/L Normal 15-37 [facility] Comment on above: Performed By: #### L IPID, CMP #### [facility] [address] [address] [address] Navneet Aguilar Bilirubin [Mass/Vol] 0.4 mg/dL Normal 0.2-1.0 [facility] Comment on above: Performed By: #### L IPID, CMP #### [facility] [address] [place] [address] Dr. Navneet Aguilar Calcium [Mass/Vol] 8.9 mg/dL Normal 8.5-10.1 [facility] Comment on above: Performed By: #### L IPID, CMP #### [facility] [address] [place] [address] Dr. Navneet Aguilar Chloride [Moles/Vol] 109 mmol/L Critically high 98-107 [facility] Comment on above: Performed By: #### L IPID, CMP #### [facility] [address] [place] [address] Dr. Navneet Aguilar CO2 [Moles/Vol] 25.3 mmol/L Normal 21.0-32.0 [facility] Comment on above: Performed By: #### L IPID, CMP #### [facility] [address] [place] [address] Dr. Navneet Aguilar Creatinine [Mass/Vol] 1.07 mg/dL Normal 0.70-1.30 [facility] Comment on above: Performed By: #### L IPID, CMP #### [facility] [address] [place] [address] Dr. Navneet Aguilar EGFR-AF KITTITIAN >60 Normal >=60 [facility] Comment on above: Performed By: #### L IPID, CMP #### [facility] [address] [address] [address] Navneet Aguilar EGFR-NON AF KITTITIAN >60 Normal >=60 [facility] Comment on above: Performed By: #### L IPID, CMP #### [facility] [address] [address] [address] Navneet Aguilar Globulin (S) [Mass/Vol] 3.1 g/dL Normal [facility] Comment on above: Performed By: #### L IPID, CMP #### [facility] [address] [address] [address] Navneet Aguilar Glucose [Mass/Vol] 115 mg/dL Critically high 74-106 [facility] Comment on above: Performed By: #### L IPID, CMP #### [facility] [address] [place] [address] Dr. Navneet Aguilar Potassium [Moles/Vol] 3.8 mmol/L Normal 3.5-5.1 [facility] Comment on above: Performed By: #### L IPID, CMP #### [facility] [address] [place] [address] Dr. Navneet Aguilar Protein [Mass/Vol] 6.7 g/dL Normal 6.4-8.2 [facility] Comment on above: Performed By: #### L IPID, CMP #### [facility] [address] [place] [address] Dr. Navneet Aguilar Sodium [Moles/Vol] 144 mmol/L Normal 136-145 [facility] Comment on above: Performed By: #### L IPID, CMP #### [facility] [address] [place] [address] Dr. Navneet Aguilar Urea nitrogen [Mass/Vol] 21.0 mg/dL Critically high 7.0-18.0 [facility] Comment on above: Performed By: #### L IPID, CMP #### [facility] [address] [place] [address] Dr. Navneet Aguilar Urea nitrogen/Creatinine [Mass ratio] 19.6 mg/mg Normal [facility] Comment on above: Performed By: #### L IPID, CMP #### [facility] [address] [address] [address] Navneet Aguilar ASPERGILLUS AB, QUANTITATIVE DIDon 07-08-2022 Aspergillus flavus Negative Normal Neg:<1:1 [facility] Comment on above: Performed By: #### C BC #### [facility] [address] [address] [address] Navneet Aguilar Aspergillus fumigatus Negative Normal Neg:<1:1 [facility] Comment on above: Performed By: #### C BC #### [facility] [address] [address] [address] Navneet Aguilar Aspergillus niger Negative Normal Neg:<1:1 [facility] Comment on above: Performed By: #### C BC #### [facility] [address] [place] [address] Dr. Navneet Aguilar IMMUNOGLOBULIN E, TOTALon Immunoglobulin E, Total 102 IU/mL Normal 6-495 [facility] Comment on above: Performed By: #### C BC #### [facility] [address] [place] [address] Dr. Navneet Aguilar ANTI NEUTROPHIL CYTOPLASMIC AB (ANCA) PRon 07-05-2022 Anti-MPO Antibodies <0.2 Normal 0.0-0.9 [facility] Comment on above: Result Comment: Perf ormed at: BN Performed By: #### H GB #### [facility] [address] [place] [address] Dr. Navneet Aguilar Anti-PR3 Antibodies <0.2 Normal 0.0-0.9 [facility] Comment on above: Result Comment: Perf ormed at: BN Performed By: #### H GB #### [facility] [address] [place] [address] Dr. Navneet Aguilar Atypical pANCA <1:20 Normal Neg:<1:20 [facility] Comment on above: Result Comment: The atypical pANCA pattern has been observed in a significant percentage of patients with ulcerative colitis, primary sclerosing cholangitis and autoimmune hepatitis. Performed at: CB Performed By: #### H GB #### [facility] [address] [address] [address] Navneet Aguilar Cytoplasmic (C-ANCA) <1:20 Normal Neg:<1:20 [facility] Comment on above: Result Comment: Perf ormed at: CB Performed By: #### H GB #### [facility] [address] [address] [address] Navneet Aguilar Perinuclear (P-ANCA) <1:20 Normal Neg:<1:20 [facility] Comment on above: Result Comment: The [...] CB Performed By: #### H GB #### [facility] [address] [place] [address] Dr. Navneet Aguilar CBC AUTO DIFFon 06-30-2022 BASO # 0.0 103/ul Normal 0.0-0.1 [facility] Comment on above: Performed By: #### C BC #### [facility] [address] [place] [address] Dr. Navneet Aguilar Basophils/100 WBC (Bld) 0.7 % Normal 0.2-2.0 [facility] Comment on above: Performed By: #### C BC #### [facility] [address] [place] [address] Dr. Navneet Aguilar EO # 0.1 103/ul Normal 0.0-0.7 [facility] Comment on above: Performed By: #### C BC #### [facility] [address] [place] [address] Dr. Navneet Aguilar Eosinophils/100 WBC (Bld) 1.9 % Normal 0.9-7.0 [facility] Comment on above: Performed By: #### C BC #### [facility] [address] [place] [address] Dr. Navneet Aguilar Erythrocyte distribution width (RBC) [Ratio] 12.5 % Normal 11.0-15.0 [facility] Comment on above: Performed By: #### C BC #### [facility] [address] [place] [address] Dr. Navneet Aguilar Hematocrit (Bld) [Volume fraction] 38.6 % Critically low 42.0-54.0 [facility] Comment on above: Performed By: #### C BC #### [facility] [address] [place] [address] Dr. Navneet Aguilar Hemoglobin (Bld) [Mass/Vol] 12.9 g/dL Critically low 14.0-18.0 [facility] Comment on above: Performed By: #### C BC #### [facility] [address] [place] [address] Dr. Navneet Aguilar IG # 0.01 10e3/ul Normal 0.00-0.03 [facility] Comment on above: Performed By: #### C BC #### [facility] [address] [place] [address] Dr. Navneet Aguilar IG % 0.2 % Normal 0.0-0.5 [facility] Comment on above: Performed By: #### C BC #### [facility] [address] [place] [address] Dr. Navneet Aguilar LYMPH # 2.4 103/ul Normal 1.2-3.8 [facility] Comment on above: Performed By: #### C BC #### [facility] [address] [place] [address] Dr. Navneet Aguilar Lymphocytes/100 WBC (Bld) 41.7 % Normal 20.5-60.0 [facility] Comment on above: Performed By: #### C BC #### [facility] [address] [place] [address] Dr. Navneet Aguilar MANUAL DIFF REQ NO Normal [facility] Comment on above: Performed By: #### C BC #### [facility] [address] [place] [address] Dr. Navneet Aguilar MCH (RBC) [Entitic mass] 29.8 pg Normal 25.9-34.0 [facility] Comment on above: Performed By: #### C BC #### [facility] [address] [place] [address] Dr. Navneet Aguilar MCHC (RBC) [Mass/Vol] 33.4 g/dL Normal 29.9-35.2 [facility] Comment on above: Performed By: #### C BC #### [facility] [address] [place] [address] Dr. Navneet Aguilar MCV (RBC) [Entitic vol] 89.1 fL Normal 80.0-94.0 [facility] Comment on above: Performed By: #### C BC #### [facility] [address] [place] [address] Dr. Navneet Aguilar MONO # 0.6 103/ul Normal 0.3-0.8 [facility] Comment on above: Performed By: #### C BC #### [facility] [address] [place] [address] Dr. Navneet Aguilar Monocytes/100 WBC (Bld) 10.5 % Normal 1.7-12.0 [facility] Comment on above: Performed By: #### C BC #### [facility] [address] [place] [address] Dr. Navneet Aguilar NEUT # 2.6 103/ul Normal 1.4-6.5 [facility] Comment on above: Performed By: #### C BC #### [facility] [address] [place] [address] Dr. Navneet Aguilar Neutrophils/100 WBC (Bld) 45.0 % Normal 43.0-75.0 [facility] Comment on above: Performed By: #### C BC #### [facility] [address] [place] [address] Dr. Navneet Aguilar Platelet mean volume (Bld) [Entitic vol] 10.1 fL Normal 9.5-13.5 [facility] Comment on above: Performed By: #### C BC #### [facility] [address] [address] [address] Navneet Aguilar PLT 296 103/ul Normal 150-450 [facility] Comment on above: Performed By: #### C BC #### [facility] [address] [place] [address] Dr. Navneet Aguilar RBC 4.33 106/ul Critically low 4.70-6.10 [facility] Comment on above: Performed By: #### C BC #### [facility] [address] [place] [address] Dr. Navneet Aguilar WBC 5.8 103/ul Normal 4.0-11.0 [facility] Comment on above: Performed By: #### C BC #### [facility] [address] [place] [address] Dr. Navneet Aguilar PROF CHEM 8 (BAS METB)on Anion gap [Moles/Vol] 13.2 mmol/L Normal [facility] Comment on above: Performed By: #### B MP #### [facility] [address] [place] [address] Dr. Navneet Aguilar Calcium [Mass/Vol] 9.1 mg/dL Normal 8.5-10.1 [facility] Comment on above: Performed By: #### B MP #### [facility] [address] [place] [address] Dr. Navneet Aguilar Chloride [Moles/Vol] 106 mmol/L Normal 98-107 [facility] Comment on above: Performed By: #### B MP #### [facility] [address] [place] [address] Dr. Navneet Aguilar CO2 [Moles/Vol] 23.7 mmol/L Normal 21.0-32.0 [facility] Comment on above: Performed By: #### B MP #### [facility] [address] [place] [address] Dr. Navneet Aguilar Creatinine [Mass/Vol] 1.06 mg/dL Normal 0.70-1.30 [facility] Comment on above: Performed By: #### B MP #### [facility] [address] [place] [address] Dr. Navneet Aguilar EGFR-AF KITTITIAN >60 Normal >=60 [facility] Comment on above: Performed By: #### B MP #### [facility] [address] [address] [address] Navneet Aguilar EGFR-NON AF KITTITIAN >60 Normal >=60 [facility] Comment on above: Performed By: #### B MP #### [facility] [address] [address] [address] Navneet Aguilar Glucose [Mass/Vol] 94 mg/dL Normal 74-106 [facility] Comment on above: Performed By: #### B MP #### [facility] [address] [address] [address] Navneet Aguilar Potassium [Moles/Vol] 3.9 mmol/L Normal 3.5-5.1 [facility] Comment on above: Performed By: #### B MP #### [facility] [address] [address] [address] Navneet Aguilar Sodium [Moles/Vol] 139 mmol/L Normal 136-145 [facility] Comment on above: Performed By: #### B MP #### [facility] [address] [address] [address] Navneet Aguilar Urea nitrogen [Mass/Vol] 17.0 mg/dL Normal 7.0-18.0 [facility] Comment on above: Performed By: #### B MP #### [facility] [address] [address] [address] Navneet Aguilar Urea nitrogen/Creatinine [Mass ratio] 16.0 mg/mg Normal [facility] Comment on above: Performed By: #### B MP #### [facility] [address] [address] [address] Navneet Aguilar XR CHEST 2 Von 05-30-2022 XR CHEST [...] by: MICKY MORENO Date: 2022-05-30 10:52 Normal [facility] ECHOCARDIO M/2D COMPLETEon 0 04-18-2022 ECHOCARDIO M/2D COMPLETE Patient: PARAS GRIGSBY Exam Date: 04/18/2022 : 1965 Gender:M Ordering : DR LAMBERT JOSE . Admission #: [id number] Family : Order #: [id number] CLICK HERE TO VIEW EXAM ECHOCARDIOGRAM REPORT [...] Area(A4C): 16.30 cm2 Left Atrium Systolic Volume(A2C): 83043 mm3 Left Atrium Systolic Volume(A4C): 42346 mm3 Mitral Valve MV E to A [...] Rivas M.D. on 04/19/2022 at 18:16 Normal [facility] CTA CHEST WO W CONon 06-06-2 [...] by: PADMINI WHITE Date: 2022-04-11 07:16 Normal [facility] HEMOGLOBINon 03-24-2022 Hemoglobin (Bld) [Mass/Vol] 13.2 g/dL Critically low 14.0-18.0 [facility] Comment on above: Performed By: #### H GB #### [facility] [address] [place] [address] Dr. Navneet Aguilar Vital Signs Date Time Vital Sign Value Performing Clinician Facility 04-30-2025 16:14-0400 Body height 170.2 cm Angel Alcaraz DPM Work Phone: [facility] 04-30-2025 16:14-0400 Body mass index (BMI) [Ratio] 40.41 kg/m2 Angel Alcaraz DPM Work Phone: [facility] 04-30-2025 16:14-0400 Body weight 117.03 kg Angel Alcaraz DPM Work Phone: [facility] 01-30-2025 15:57-0400 Body mass index (BMI) [Ratio] 40.41 kg/m2 Debora Dunham MD Work Phone: [facility] 01-30-2025 15:57-0400 Body weight 117.03 kg Debora Dunham MD Work Phone: [facility] 11-20-2024 13:32-0500 Body height 170.2 cm Giovanny SALDIVAR Work Phone: [facility] 01-15-2025 13:32-0500 Body mass index (BMI) [Ratio] 37.59 kg/m2 Giovanny SALDIVAR Work Phone: [facility] 11-20-2024 13:32-0500 Body weight 108.86 kg Giovanny SALDIVAR Work Phone: [facility] 07-15-2024 15:18-0400 Body mass index (BMI) [Ratio] 40.25 kg/m2 Debora Dunham MD Work Phone: [facility] 07-15-2024 15:18-0400 Body weight 116.57 kg Debora Dunham MD Work Phone: [facility] 02-23-2023 16:25-0400 Body height 170.18 cm Yasmine Joaquin Other [employer] Other 02-23-2023 16:25-0400 Body mass index (BMI) [Ratio] 40.72 kg/m2 Yasmine Joaquin Other [employer] Other 02-23-2023 16:25-0400 Body temperature 98.8 [degF] Yasmine Joaquin Other [employer] Other 02-23-2023 16:25-0400 Body weight 117.94 kg Yasmine Joaquin Other [employer] Other 02-23-2023 16:25-0400 Diastolic blood pressure 70 mm[Hg] Yasmine Joaquin Other [employer] Other 02-23-2023 16:25-0400 Respiratory rate 18 /min Yasmine Joaquin Other [employer] Other 02-23-2023 16:25-0400 SaO2% (BldA) [Mass fraction] 97 % Yasmine Joaquin Other [employer] Other 02-23-2023 16:25-0400 Systolic blood pressure 131 mm[Hg] Yasmine Joaquin Other [employer] Other 02-17-2023 10:10-0400 Body height 170.18 cm Emma Guerrero Other [employer] Other 02-17-2023 10:10-0400 Body mass index (BMI) [Ratio] 40.72 kg/m2 Emma Guerrero Other [employer] Other 02-17-2023 10:10-0400 Body temperature 97.7 [degF] Emma Guerrero Other [employer] Other 02-17-2023 10:10-0400 Body weight 117.94 kg Emma Guerrero Other [employer] Other 02-17-2023 10:10-0400 Respiratory rate 18 /min Emma Guerrero Other [employer] Other 02-17-2023 10:10-0400 SaO2% (BldA) [Mass fraction] 94 % Emma Guerrero Other [employer] Other 02-15-2022 18:45-0400 Body height 170.18 cm Dimple Srini Other [employer] Other 02-15-2022 18:45-0400 Body mass index (BMI) [Ratio] 39.46 kg/m2 Dimple Milligan Other [employer] Other 02-15-2022 18:45-0400 Body temperature 98.2 [degF] Dimple Milligan Other [employer] Other 02-15-2022 18:45-0400 Body weight 114.31 kg Dimple Milligan Other [employer] Other 02-15-2022 18:45-0400 Diastolic blood pressure 93 mm[Hg] Dimple Milligan Other [employer] Other 02-15-2022 18:45-0400 Respiratory rate 18 /min Dimple Milligan Other [employer] Other 02-15-2022 18:45-0400 SaO2% (BldA) [Mass fraction] 96 % Dimple Milligan Other [employer] Other 02-15-2022 18:45-0400 Systolic blood pressure 158 mm[Hg] Dimple Milligan Other [employer] Other Encounters Encounter Date Encounter Type Care Provider Facility Start: 07-16-2025 ambulatory Lee HALE Facility :[facility] Start: 06-12-2025 End: 06-12-2025 ambulatory [facility] Start: 06-05-2025 End: 06-06-2025 ambulatory [facility] Start: 04-30-2025 End: 04-30-2025 Office outpatient visit 15 minutes nAgel Alcaraz DPM Work Phone: [facility] Comment on above: Onychodystrophy (Carolyn veronica Dx); Onychomycosis Start: 04-30-2025 End: 04-30-2025 ambulatory ANGEL ALCARAZ Not Available Start: 04-30-2025 End: 04-30-2025 Bamboo flowsheet Angel Alcaraz DPM Work Phone: [facility] Start: 04-30-2025 End: 04-30-2025 Bamboo flowsheet Angel Juan Marciano DPM Work Phone: [facility] Start: 04-18-2025 End: 04-18-2025 ambulatory DAMIAN [facility] Start: 01-30-2025 End: 01-30-2025 Office outpatient [...] ALL Start: 12-06-2024 End: 12-06-2024 Bamboo flowsheet Jr. Heraclio Doshi DO Work Phone: [facility] Start: 12-06-2024 End: 12-06-2024 Bamboo flowsheet Jr. Heraclio Beach Stepanic DO Work Phone: [facility] [...] 11-20-2024 Bamboo flowsheet Giovanny SALDIVAR Work Phone: [facility] Start: 11-20-2024 End: 11-20-2024 Office outpatient new 30 minutes Giovanny SALDIVAR Work Phone: [facility] Comment on above: Acute pain of left k nee (Primary Dx); Internal derangement of left knee Start: 11-20-2024 End: 11-20-2024 ambulatory GIOVANNY TATUM Not Available Start: 10-07-2024 End: 10-07-2024 ambulatory [facility] Start: 07-30-2024 End: 07-30-2024 ambulatory LAMBERT [...] [facility] Start: 07-15-2024 End: 07-15-2024 Carmeno flowsemily Dunham MD Work Phone: [facility] Start: 07-09-2024 End: 07-09-2024 ambulatory [facility] Start: 03-15-2023 End: 03-16-2023 ambulatory MARYURI HADDAD Facility:H1 Start: 02-25-2023 End: 02-25-2023 ambulatory ANABELLE AGGARWAL . Facility:H1 Start: 02-23-2023 End: 02-23-2023 ambulatory Yasmine Joaquin Other [employer] Other Start: 02-23-2023 Office outpatient vi sit 15 minutes Yasmine Joaquin [facility] Start: 02-17-2023 End: 02-17-2023 ambulatory Emma Guerrero Other [employer] Other Start: 02-17-2023 Office outpatient vi sit 15 minutes Emma Guerrero [facility] Start: 01-28-2023 Encounter for genera l adult medical examination without abnormal findings DR LAMBERT JOSE . [facility] Start: 01-21-2023 End: 01-22-[address] [...] Facility:H1 Start: 06-30-2022 End: 07-01-2022 ambulatory BRANDAN PORTERS Facility:H1 Start: 05-30-2022 End: 05-31-[address] LAMBERT JOSE . Facility:H1 Start: 04-18-2022 End: 04-19-[address] LAMBERT JOSE . Facility:H1 Start: 04-09-2022 End: 04-10-[address] LAMBERT JOSE . Facility:H1 Start: 03-24-2022 End: 03-25-[address] LAMBERT JOSE . Facility:H1 Start: 02-15-2022 End: 02-15-2022 ambulatory Dimple Milligan Other [employer] Other Start: 02-15-2022 Office outpatient vi sit 15 minutes Dimple Milligan [facility] Procedures Date Procedure Procedure Detail Performing Clinician Start: 11-20-2024 Radiologic examinati on knee 1/2 views Giovanny SALDIVAR Work Phone: Start: 01-21-2023 PSA screening MARYURI CHAMPION [facility]SA Comment on above: Performed By: #### [facility] #### [facility] [address] [place] [address] Dr. Navneet Aguilar Start: 08-03-2022 History of placement of stent for coronary artery disease History of coronary artery stent placement Jr. Glenda RICHARDSON Work Phone: Plan of Treatment Date Care Activity Detail Author Start: 08-04-2025 End: 08-04-2025 Patient encounter procedure 08/04/2025 4:00 PM EDT Office Visit [facility] [address] [place] [address] Debora Dunham MD [address] [facility] [address] [place] [address] [facility] Start: 07-07-2025 Influenza vaccination Influenz a Vaccine (Season Ended) [facility] Start: 04-30-2025 End: 04-30-2025 Patient encounter procedure 04/30/2025 4:15 PM EDT Office Visit [facility] [address] [place] [phone] Angel Alcaraz, DPM [address] [place] [address] Arrived [facility] Comment on above: Arrived Start: 01-30-2025 End: 01-30-2025 Patient encounter procedure [facility] Comment on above: Arrived Start: 12-31-2024 End: 12-31-2024 Patient encounter procedure 12/31/2024 11:30 AM EST Office Visit [facility] [address] [place] [phone] Jr. Heraclio Doshi, DO [address] [facility] [address] [place] [address] [facility] Start: 12-06-2024 End: 12-06-2024 Patient encounter procedure [facility] Comment on above: Acute pain of left k nee (Primary Dx); Acute medial meniscus tear of left knee, initial encounter Start: 11-20-2024 End: 11-20-2025 MR Knee - left WO contrast MR knee left wo IV contrast Imaging Routine Internal derangement of left knee Expected: 11/20/2024 (Approximate), Expires: 11/20/2025 [facility] Work Phone: Comment on above: Expected: 11/20/2024 (Approximate), Expires: 11/20/2025 Start: 11-20-2024 End: 11-20-2024 Patient encounter procedure 11/20/2024 1:30 PM EST Office Visit [facility] [address] [place] [phone] Giovanny Tatum PA [address] [facility] [address] [place] [address] Acute pain of left knee (Primary Dx) [facility] Comment on above: Acute pain of left k nee (Primary Dx) Start: 07-15-2024 End: 07-15-2024 Patient encounter procedure 07/15/2024 3:20 PM EDT Office Visit [facility] [address] [facility] [address] [place] [address] Debora Dunham MD [address] [facility] [address] [place], [place] [phone] Arrived [facility] Comment on above: Arrived Start: 07-07-2024 Influenza vaccination Influenza Vacc ine (#1) [facility] Start: 1965 Screening for malignant neoplasm of colon [facility] Payers Date Payer Category Payer Private Health Insurance [employer] [id number] 2022 Unknown [employer] [id number] 2022-Present [address] [place] [address] [id number] 1963 Unknown [id number] 2.16.840.1.435459.3.579.2. 593 1963 Unknown [id number] 2.16.840.1.958594.3.579.2. 593 1963 Unknown [id number] 2.16.840.1.726651.3.579.2. 593 1963 Unknown [id number] 2.16.840.1.843594.3.579.2. 593 1963 Unknown [id number] 2.16.840.1.164828.3.579.2. 593 1963 Unknown [id number] 2.16.840.1.544848.3.579.2. 593 1963 Unknown [id number] 2.16.840.1.200493.3.579.2. 593 1963 Unknown [id number] 2.16.840.1.050767.3.579.2. 593 1963 Unknown [id number] 2.16.840.1.787503.3.579.2. 593 1963 Unknown [id number] 2.16.840.1.740431.3.579.2. 593 1963 Unknown [id number] 2.16.840.1.850172.3.579.2. 593 1963 Unknown [id number] 2.16.840.1.289194.3.579.2. 593 1963 Unknown [id number] 2.16.840.1.998970.3.579.2. 593 1963 Unknown [id number] 2.16.840.1.601892.3.579.2. 9 1963 Unknown [id number] 2.16.840.1.005823.3.579.2. 1258 1963 Unknown [id number] 2.16.840.1.745140.3.579.2. 9 1963 Unknown [id number] 2.16.840.1.442397.3.579.2. 1258 1963 Unknown [id number] 2.16.840.1.746408.3.579.2. 9 1963 Unknown [id number] 2.16.840.1.853139.3.579.2. 1258 1963 Unknown [id number] 2.16.840.1.642462.3.579.2. 1258 1963 Unknown [id number] 2.16.840.1.737518.3.579.2. 1258 1963 Unknown [id number] 2.16.840.1.913428.3.579.2. 727 1959 Unknown [id number] 2.16.840.1.954451.19 Social History Date Type Detail Facility Start: 03-28-2024 End: 01-30-2025 Sex Assigned At [facility] [employer] Other Start: 02-14-2024 End: 04-30-2025 Tobacco smoking status IDIS Ex-smoker [facility] Start: 12-11-1986 End: 10-27-2011 History of tobacco use Current smoker [facility] Start: 12-11-1986 End: 10-27-2011 History of tobacco use Cigarette Smoker [facility] Start: 02-14-2024 End: 04-30-2025 Tobacco use and exposure Former smokeless tobacco user [facility] End: 12-11-1994 History of tobacco use Snuff User [facility] Start: 07-15-2024 End: 04-30-2025 Alcoholic beverage intake Ex-drinker (finding) [facility] Start: 03-28-2024 End: 01-30-2025 History of Social function [facility] Start: 06-12-2023 Alcohol Comment Caffeine intak e: >4 cups per day [facility] Start: 1965 Sex assigned at Male [facility] Start: 06-05-2023 Gender identity Identifies as male gender (finding) [facility] Clinical Notes 02-15-2022 to 06-26-2025 Angel Alcaraz DPM - 04/30/2025 4:15 PM Uziel Dunham MD - 01/30/2025 4:00 PM EDTJr. Heraclio Doshi, - 12/06/2024 8:15 AM JANNA Cohen - 11/20/2024 1:30 PM EST Note Date & Type Note Facility 06-26-2025 Note No significant aguilar es on his ECHO to explain his dyspnea. Recommend he see pulmonary. Will he see someone in [place]? 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 Barbara Abrams PGY-4 Mat Linker [facility] [1] Past Medical History: Diagnosis Date COPD (chronic obstructive pulmonary disease) ([facility]) Coronary artery disease Hyperlipidemia Hypertension Sleep [...] No current facility-administered medications for this encounter. [facility] 06-05-2025 Note Cardiovascular Medic [facility] SUBJECTIVE Chief Complaint Patient presents [...] and chest pain with exertion. 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 grandchildren or get up into [...] Problem List Diagnosis Chest pain CAD in [place] artery Essential hypertension COPD (chronic obstructive pulmonary disease) (CMS/HCC) S/P drug eluting coronary stent placement Hyperplastic polyp of intestine Dyspnea Shortness of breath Severe persistent asthma with acute exacerbation (CMS/HCC) Degeneration of intervertebral disc of cervical region Other cervical disc displacement at C6-C7 level Radiculopathy, cervical region Spinal stenosis, cervical region Hypertensive retinopathy Umbilical hernia VILLAVICENCIO (dyspnea on exertion) Past Medical History: Diagnosis Date COPD (chronic obstructive pulmonary disease) ([facility]) Coronary artery disease Hyperlipidemia Hypertension Sleep [...] Skin is w (more content not included)... [facility] 06-05-2025 Note Patient here c/o SOB . [...] All other systems reviewed and are negative. [facility] 04-30-2025 History of Present illness Narrative Images [...] History Past Medical History: Diagnosis Date Asthma ([facility]) 2021 COPD (chronic obstructive pulmonary disease) ([facility]) 2021 History of medical problems 2012 precancerous [...] Angel Alcaraz DPM documented in this encounter [facility] 04-18-2025 Note Patient here today f or a 6 month. Patient states he been sick with the URI x1 week. Patient taking ATB. Patient state he still has VILLAVICENCIO, lightheaded. Review of Systems Cardiovascular: Positive for dyspnea on exertion. Neurological: Positive for light-headedness. [facility] 04-18-2025 Note SUBJECTIVE Reason for Visit: Paras [...] Rate 08/03/2022 53 Atrial Rate 08/03/[address] Interval 08/03/2022 164 QRS DURATION 08/03/2022 100 QT Interval 08/03/2022 424 QTC CALCULATION(BAZETT) 08/03/2022 397 P Addison 08/03/2022 39 R-Addison 08/03/2022 -7 T Wave Addison 08/03/2022 51 Auto WBC 08/03/2022 4.48 RBC [...] Rate 08/03/2022 50 Atrial Rate 08/03/[address] Interval 08/03/2022 170 QRS DURATION 08/03/2022 104 QT Interval 08/03/2022 436 QTC CALCULATION(BAZETT) 08/03/2022 397 P Addison 08/03/2022 50 R-Addison 08/03/2022 4 T (more content not included)... [facility] 01-30-2025 History of Present illness Narrative Paras [...] should problems arise. documented in this encounter [facility] 12-06-2024 History of Present illness Narrative Images from the original note were not included. HISTORY OF PRESENT ILLNESS: EST PT Paras Grigsby is an 59 y.o. @ male. (EST PT-PREVIOUSLY SAW ROSENDO TATUM ON 11/20/24) RECHECK LT KNEE PAIN ~2 MONTHS. PT FELT A POP IN KNEE- PT STATES PAIN IS IMPROVING. HERE FOR MRI RESULTS, [place] [facility] PT IS ON PLAVIX XRAY LT KNEE 11/20/24 [facility] MRI LT KNEE 11/27/24 [place] NO CORTISONE INJ NO MDP/PREDNISONE HX LT [...] of said treatment. documented in this encounter [facility] 11-20-2024 History of Present illness Narrative Images [...] HISTORY: Past Medical History: Diagnosis Date Asthma ([facility]) 2021 COPD (chronic obstructive pulmonary disease) ([facility]) 2021 History of medical problems 2012 precancerous throat polyps Hyperlipidemia ([facility]) Hypertension ([facility]) PAST SURGICAL HISTORY: Past Surgical History: Procedure [...] requiring urgent evaluation. documented in this encounter [facility] 10-07-2024 Note [facility] Cardiology Clinic Note Chief Complaint: [...] history of COPD (chronic obstructive pulmonary disease) ([facility]), Coronary artery disease, Hyperlipidemia, Hypertension, and Sleep [...] 109, BUN 1 (more content not included)... [facility] 07-15-2024 History of Present illness Narrative Paras [...] should problems arise. documented in this encounter [facility] 07-09-2024 Note [facility] Cardiology Clinic Note Chief Complaint: [...] history of COPD (chronic obstructive pulmonary disease) ([facility]), Coronary artery disease, Hyperlipidemia, Hypertension, and Sleep [...] Labs from 12/08 (more content not included)... [facility] 02-23-2023 Evaluation note Encounter Date Diagnosis Assessment Notes Feb, Urticaria (ICD-10 - L50.9) Discussed diagnosis with patient. We will send in Rx of prednisone taper to use as directed. Continue [id number] Benadryl/Zyrtec or Claritin. Advised patient to avoid hot showers/baths encouraged use of cool compresses. Patient needs to follow-up with PCP if this rash does not improve with treatment. Immediate evaluation in ER for signs and symptoms as discussed. Patient verbalizes understanding and is agreeable to treatment plan. [employer] Other 04-14-2023 Evaluation note* Encounter Date Diagnosis [...] concerns Feb, Acute cough (ICD-10 - R05.1) [employer] Other 04-12-2022 Evaluation note* Encounter Date Diagnosis Assessment Notes Treatment Notes Treatment Clinical Notes Feb, Infected tooth (ICD-10 - K04.7) Take medications as directed.Highly encourage patient to contact dentist TIARA for further treatment of infection. Do not take OTC medications like ibuprofen with prescriptions [employer] Other Evaluation note* Diagnosis Severe persistent asthma with (acute) exacerbation (CMS/HCC)- Primary documented in this encounter [facility] Healthcare[facility] note* Diagnosis Acute pain of left knee- Primary Internal derangement of left knee documented in this encounter [facility]* Diagnosis Acute pain of left knee- Primary Acute medial meniscus tear of left knee, initial encounter documented in this encounter [facility]* Diagnosis Severe persistent asthma without complication (CMS/HCC)- Primary documented in this encounter [facility]* Diagnosis Onychodystrophy- Primary Other specified disease of nail Onychomycosis Dermatophytosis of nail documented in this encounter [facility] HealthcareHistory general Narrative - Reported* Type Description Date Medical History Benign essential HTN Surgical History knee surgery Surgical History shoulder surgery Surgical History tonsillectomy and adenoidectomy Surgical History wisdom teeth Surgical History vasectomy Hospitalization History see above [employer] Other History general Narrative - Reported* Type Description Date Medical History Benign essential HTN Medical History High cholesterol Surgical History knee surgery Surgical History shoulder surgery Surgical History tonsillectomy and adenoidectomy Surgical History wisdom teeth Surgical History vasectomy Surgical History stent 2021 Hospitalization History see above [employer] Other Summary Purpose Family History No Family [...] and content) DATE CREATED AUTHOR 03/19/2023 [facility] DATE CREATED AUTHOR AUTHOR'S ORGANIZ ATION 05/02/2025 [facility] EPIC DATE CREATED AUTHOR AUTHOR'S ORGANIZ ATION 06/30/2025 [facility] DATE CREATED AUTHOR AUTHOR'S ORGANIZ ATION 07/09/2025 [facility] Care Teams (unrecognized sec tion and content) Acquisitions Librarian Relationship Specialty Start Date End Date Lambert Jose MD [address] [place] [address] PCP - General 06/05/23 Acquis[employer] Librarian Relationship Specialty Start Date End Date Lambert Jose MD [address] [place] [address] PCP - General 06/05/23 Acquis[employer] Librarian Relationship Specialty Start Date End Date Lambert Jose MD [address] [place] [address] PCP - General 06/05/23 Acquisitions Librarian Relationship Specialty Start Date End Date Lambert Jose MD [address] [place] [facility] [place] [address] PCP - General 06/05/23 Acquisitions Librarian Relationship Specialty Start Date End Date Lambert Jose MD [address] [place] [facility] [place] [address] [facility] General 06/05/23 Acquisitions Librarian Relationship Specialty Start Date End Date Lambert Jose MD [address] [place] [facility] [place] [address] [facility] 06/05/23 Acquisitions Librarian Relationship Specialty Start Date End Date Lambert Jose MD [address] [place] [facility] [place] [address] [facility] 06/05/23 Acquisitions Librarian Relationship Specialty Start Date End Date Lambert Jose MD [address] [place] [facility] [place] [address] [facility] 06/05/23 FOR RECORDS PERTAINING TO PATIENTS WHO [...] BE BASED ON THE PRIMARY CLINICAL RECORDS. [facility] [employer] [facility]. provides no warranty or guarantee of the accuracy or completeness of information in this document.
[2025-07-10 15:25] LABS: Free T3 1.89 pg/mL (2.18-3.98); Thyroid Stimulating Hormone 0.731 uIU/mL (0.358-3.740)
== END 2025-07-10 14:29 | disposition home or self-care (01) ==
LOC: LAB 14:30
PROVIDERS: PCP Family Medicine; Visit Provider Family Medicine
DX: E03.9 Hypothyroidism, unspecified (principal)
CPT/HCPCS: 36415; 84436; 84443; 84481

== ENCOUNTER 2025-08-12 10:06 | Outpatient (OUT) | payer OTHER, SELFPAY ==
--- OUTSIDE RECORDS SUMMARY | 2025-08-04 16:00 | XMS_ITS | Encounter Summary ---
Author Organization [facility] Address [address] [place] [address] Care Team Providers Care Radiation Control Technician Name Role Phone Ben Jose MD Primary Care Provider [phone] Reason for Visit * Reason Comments Follow-up SIX MONTH FOLLOW UP ON ASTHMA pt states he still has SOB but did just have a heart cath in June Encounter Details Date Type Department Care Team (Late st Contact Info) Description 08/04/2025 4:00 PM EDT Office Visit [facility] [address] [facility] [address] [place] [address] Cesar Dunham MD [address] [facility] [address] [place] [address] Chronic bronchitis, unspecified chronic bronchitis type (HCC) [...] rhinitis documented in this encounter Care Teams Radiation Control Technician Relationship Specialty Start Date End Date Ben Jose MD [address] [place] [phone] PCP - General 06/05/23 documented as of this encounter
--- OUTSIDE RECORDS SUMMARY | 2025-08-12 10:09 | XMS_ITS | Clinical Summary ---
Author Organization [employer] tem Address [id number] [address] [place] [address] Care Team Providers Care Milk Inspector Name Role Phone Ben Jose MD Primary Care Provider [phone] Allergies No known active allergies Medications olmesartan [...] on file Insurance [employer] Care Teams Milk Inspector Relationship Specialty Start Date End Date Ben Jose MD PCP - General 03/28/17
--- OUTSIDE RECORDS SUMMARY | 2025-08-12 10:09 | XMS_ITS | Encounter Summary ---
Author Organization [facility] Address [address] [place] [address] Care Team Providers Care Signs Sales Representative Name Role Phone Ben Jose MD Primary Care Provider [phone] Encounter Details Date Type Department Care Team ([facility] Contact Info) Description 06/12/2023 Abstract [facility] [id number] [facility] [address] [place] [phone] Cesar Dunham MD [address] [facility] [address] [place] [address] Social History Tobacco Use Types Packs/Day Years [...] as of this encounter Plan of Treatment Not on file documented as of this encounter Visit Diagnoses Not on filedocumented in this encounter Care Teams Signs Sales Representative Relationship Specialty Start Date End Date Ben Jose MD [address] [place] [address] PCP - General 06/05/23 documented as of this encounter
--- OUTSIDE RECORDS SUMMARY | 2025-08-12 10:09 | XMS_ITS | Encounter Summary ---
Author Organization [facility] Address [address] [place] [address] Care Team Providers Care Buffing Wheel Former Automatic Name Role Phone Ben Jose MD Primary Care Provider [phone] Encounter Details Date Type Department Care Team (Latest Contact Info) Description 08/04/2025 Travel Social History Tobacco Use Types Packs/Day [...] on filedocumented in this encounter Care Teams Buffing Wheel Former Automatic Relationship Specialty Start Date End Date Ben Jose MD [address] [place] [address] PCP - General 06/05/23 documented as of this encounter
--- OUTSIDE RECORDS SUMMARY | 2025-08-12 10:09 | XMS_ITS | Encounter Summary ---
Author Organization [facility] Address [address] [place] [address] Care Team Providers Care Buffing And Polishing Wheel Repairer Name Role Phone Ben Jose MD Primary Care Provider [phone] Encounter Details Date Type Department Care Team (Late st Contact Info) Description 08/04/2025 Bamboo flowsheet [facility] [address] [facility] [address] [place] [id number] Cesar Dunham MD [address] [facility] [address] [place] [address] Social History Tobacco Use Types Packs/Day Years [...] filedocumented in this encounter Care Teams Buffing And Polishing Wheel Repairer Relationship Specialty Start Date End Date Ben Jose MD [address] [facility] [place] [address] PCP - General 06/05/23 documented as of this encounter
--- OUTSIDE RECORDS SUMMARY | 2025-08-12 10:09 | XMS_ITS | Encounter Summary ---
Author Organization [facility] Address [address] [place] [address] Care Team Providers Care Daycare Provider Name Role Phone Chris Martinez MD Primary Care Provider [phone] Ben Jose MD Primary Care Provider [phone] Reason for Visit * Reason Comments Med Refill Encounter Details Date Type Department Care Team (Late st Contact Info) Description 09/29/2022 Refill [facility] Cardiology [address] [place] [phone] Alexus Mcarthur, PLAYGROUND MONITOR [address] [address] Social History Tobacco Use Types [...] on filedocumented in this encounter Care Teams Daycare Provider Relationship Specialty Start Date End Date Chris Martinez MD [address] [address] PCP - General 07/28/22 11/14/22 Bne Jose MD [address] [facility] [place] [id number] PCP - General 11/15/22 documented as of this encounter
--- OUTSIDE RECORDS SUMMARY | 2025-08-12 10:09 | XMS_ITS | Encounter Summary ---
Author Organization [facility] Address [address] [place] [address] Care Team Providers Care Flight Service Agent Name Role Phone Ben Jose MD Primary Care Provider [phone] Reason for Visit * Reason Comments Med Refill Encounter Details Date Type Department Care Team (Late st Contact Info) Description 03/18/2023 Refill [facility] Cardiology [address] [place] [phone] Alexus Mcarthur, MORTGAGE LOAN COORDINATOR [address] [place] [phone] Social History Tobacco Use Types Packs/Day Years [...] on filedocumented in this encounter Care Teams Flight Service Agent Relationship Specialty Start Date End Date Ben Jose MD [address] [place] [address] PCP - General 11/15/22 documented as of this encounter
--- OUTSIDE RECORDS SUMMARY | 2025-08-12 10:09 | XMS_ITS | Clinical Summary ---
Author Organization [facility] Address [address] [place] [address] Care Team Providers Care Product Management Specialist Name Role Phone Ben Jose MD Primary Care Provider [phone] Allergies No known active allergies Medications carvedilol (Coreg) 12.5 mg tablet Take 12.5 mg by mouth with breakfast and with evening meal. Active doxazosin (Cardura) 4 mg tablet Take 4 mg by mouth at bedtime. Active fenofibrate (Tricor) 145 mg tablet Take 145 mg by mouth in the morning. Active aspirin 81 mg chewable tabletIndications :CAD in shinnecock artery CHEW AND SWALLOW 1 TABLET IN THE MORNING 90 tablet 3 3 Active diclofenac (Voltaren) 50 mg EC tablet Take 50 mg by mouth twice a day. Active FeroSuL 325 mg (65 mg iron) tablet Take 1 tablet by mouth in the morning and at bedtime. 4 Active atorvastatin (Lipitor) 80 mg tabletIndications :CAD in sh[place]necock artery TAKE 1 TABLET AT BEDTIME 90 tablet 3 4 Active clopidogrel (Plavix) 75 mg tabletIndications :CAD in shinnecock artery TAKE 1 TABLET IN THE MORNING 90 tablet 3 4 Active lisinopril 20 mg tabletIndications :Essential hypertension Take 1 tablet (20 mg) by mouth in the morning. 90 tablet 3 5 Active furosemide (Lasix) 40 mg tabletIndications :Edema, unspecified type TAKE 1 TABLET IN THE MORNING 90 tablet 3 5 Active liothyronine (Cytomel) 5 mcg tablet Take 15 mcg by mouth in the morning. Active sildenafil (Viagra) 100 mg tablet Take 1 tablet by mouth in the morning. Active Active Problems Problem Noted Date Diagnosed [...] eluting coronary stent placement 2021 CAD in shinnecock artery 08/03/2022 Chest pain 07/14/2022 Overview (07/14/2022): Added automatically from request for surgery [id number] Dyspnea 06/07/2022 05/29/2023 Shortness of breath 11/22/2018 05/29/2023 Hyperplastic polyp of intestine 05/03/2017 05/29/2023 Encounters Date Type Department Care Team Description 07/10/2025 1:40 PM EDT Follow-Up [address] [address] Ivet Jane CNP CAD in shinnecock artery (Primary Dx); VILLAVICENCIO (dyspnea on exertion); Non-cardiac chest pain; History of coronary artery stent placement; Benign hypertensive heart disease without congestive heart failure; Mixed hyperlipidemia; Pulmonary emphysema, unspecified emphysema type (CMS/HCC) 06/26/2025 Results Follow-Up [facility] [address] [place] [address] Ivet Jane CNP Complete Echo (TTE) w/wo Imaging Agent, Strain, 3D, Bubble Study 06/26/2025 Orders Only [facility] [address] [place] [address] Provider, MD Citlali 06/12/2025 12:30 PM EDT - 06/12/2025 1:45 PM EDT Surgery [facility] [address] [place] [address] Arturo Yu MD Coronary angiography 06/12/2025 10:51 AM EDT - 06/12/2025 3:50 PM EDT Hospital Encounter [facility] [address] [place] [address] Arturo Yu MD CAD in shinnecock artery (Primary Dx); Chest pain, unspecified type; VILLAVICENCIO (dyspnea on exertion) Discharge Disposition: Home or Self Care (01) 06/12/2025 Travel 06/09/2025 Travel 06/06/2025 Orders Only [place] [address] [place] [address] Karime De Souza MA Encounter for pre-operative examination (Primary Dx); VILLAVICENCIO (dyspnea on exertion) 06/06/2025 Orders Only [place] [address] [place] [address] Karime De Souza MA Chest pain, unspecified type (Primary Dx); VILLAVICENCIO (dyspnea on exertion) 06/05/2025 3:20 PM EDT Office Visit [place] [address] [place] [address] Ivet Jane CNP Coronary artery disease of shinnecock artery of shinnecock heart with stable angina pectoris (Primary Dx); Shortness of breath; History of coronary artery stent placement; VILLAVICENCIO (dyspnea on exertion); Mixed hyperlipidemia; Benign hypertensive heart disease without congestive heart failure; Pulmonary emphysema, unspecified emphysema type (CMS/HCC) 06/05/2025 Refill [facility] [address] [place] [address] Karon Silvestre MA from Last 3 Months Family History Medical History Relation Name Comments Coronary artery disease Father Heart failure Father Relation Name Status Comments Father Mother Social History Tobacco Use Types Packs/Day Years Used Date Smoking Tobacco: Former Cigarettes 30 1 982 - 2011 Passive Smoke Exposure: Past Smokeless Tobacco: Former Quit: 2002 Tobacco Cessation:Counseling Given: Not Answered Alcohol Use [...] Sign Reading Time Taken Comments Blood Pressure 131/73 07/10/2025 1:55 PM EDT Pulse 64 07/10/2025 1:55 PM EDT Temperature 36.8 C (98.2 F) 08/04/2022 8:00 AM EDT Respiratory Rate 20 06/12/2025 3:45 PM EDT Oxygen Saturation 96% 07/10/2025 1:55 PM EDT Inhaled Oxygen Concentration - - Weight 112 kg (246 lb) 07/10/2025 1:55 PM EDT Height 170.2 cm (5' 7 ) 07/10/2025 1:55 PM EDT Body Mass Index 38.53 07/10/2025 1:55 PM EDT Plan of Treatment Health Maintenance Due Date Last Done Comments CT Colonography 1963 Colonoscopy 1963 Colorectal Cancer Screening 1963 FIT-DNA 1963 FIT 1963 FOBT 1963 Sigmoidoscopy 1963 Depression Screening 1975 Pneumococcal Vaccine: Pediatrics (0 to 5 Years) and At-Risk Patients (6 to 64 Years) (1 of 2 - PCV) 1982 Zoster Vaccines (1 of 2) 2013 COVID-19 Vaccine ( season) 2025 10/25/2021, 02/16/2021, 01/19/2021 Influenza Vaccine (#1) 2025 [...] this topic Medical Devices Implanted Type Area Stationary Equipment Mechanic Device Identifier Shelf Expiration Date Model / Serial / Lot Stent,Synergy Mr 3.50 X 38 - [id number] Implanted:Qty: 1 on 08/03/2022 by Justino Serna MD at [facility] Drug Eluting Stent [employer] [id number] 04/12/2024 [id number] / / [id number] Procedures Procedure Name Priority Date/Time Associated Diagnosis Comments COMPLETE TRANSTHORACIC ECHO (TTE) W/WO IMAGING AGENT, STRAIN, 3D, BUBBLE STUDY Routine 06/25/2025 8:45 AM EDT RIGHT HEART CATH Routine 06/12/2025 1:38 PM EDT Chest pain, unspecified type VILLAVICENCIO (dyspnea on exertion) CORONARY ANGIOGRAPHY Routine 06/12/2025 1:38 PM EDT Chest pain, unspecified type VILLAVICENCIO (dyspnea on exertion) POCT HBO2% Routine 06/12/2025 1:26 PM EDT ECG 12-LEAD Routine 06/12/2025 11:33 AM EDT ECG 12 LEAD UNIT PERFORMED Routine 06/05/2025 3:32 PM EDT Shortness of breath from Last 3 Months Results * Complete Echo (TTE) w/wo Imaging Agent, Strain, 3D, Bubble Study (06/25/2025 8:45 AM EDT) Anatomical Region Laterality Modality Ultrasound us Historical Provider CV ECHO PROCEDURES Final Result * CORONARY ANGIOGRAPHY, RIGHT HEART CATH (06/12/2025 [...] informed consent. he was brought to the cathode washer in a fasting state. The right neck area was prepped and draped in usual fashion. Micropuncture technique was used for access under ultrasound guidance into the right internal jugular vein. A 6-Irish x 11 cm sheath was placed. A 6-Irish Lovett catheter was used for right heart catheterization and measurement of pressures and calculation of cardiac output using the estimated Sydnie method. Lovett catheter was removed. The left wrist area was prepped and draped in usual fashion. Micropuncture technique was used for access in the radial artery. A 6-Irish x 11 cm sheath was placed. Verapamil was given through the sheath, and heparin was administered intravenously. Bilateral selective coronary angiography was then performed using 6-Irish JL4 diagnostic catheter for engagement of the left coronary artery and 6-Irish JR4 diagnostic catheter for engagement of the [...] on exertion) [R06.09], Coronary artery disease involving shinnecock coronary artery of shinnecock heart with other form of angina pectoris [I25.118] Ivet Jane [facility] CV CARDIAC CATH PROCEDURES Fi nal Result * (ABNORMAL) POC Hb02% (06/12/2025 1:26 PM EDT) PRZXNU64% 64.1(A) 90 - 95 % QC Pass/Fail Passed QC LOT # [id number] QC Expiration Date 73,126 SAMPLESITE nl Blood Venous blood specimen / Unknown 06/12/2025 1:26 PM EDT Narrative Wilfred Aguiar MT - 06/13/2025 6:42 AM EDT Oper [id number] Arturo Yu MD POINT OF CARE TEST ENTER/ALCON T ORDERABLES Final Result * Electrocardiogram, 12-lead (06/12/2025 11:33 AM EDT) Ventricular Rate 53 BPM GE MUSE Atrial Rate 53 BPM GE MUSE SD Interval 156 ms GE MUSE QRS DURATION 100 ms GE MUSE QT Interval 436 ms GE MUSE QTC CALCULATION(BAZE TT) 409 ms GE MUSE P [place] 78 degrees GE MUSE R-[place] 1 degrees GE MUSE T Wave [place] 57 degrees GE MUSE 06/12/2025 11:2 4 [...] performed (06/05/2025 3:32 PM EDT) Ivet Jane CNP ECG ORDERABLES Final Result from Last 3 Months Insurance [employer] Advance Directives * Full Code (Latest Code Status on File) Date Activated Date Inactivated Comments 08/03/2022 12:28 PM 08/04/2022 1:04 PM Care Teams Product Management Specialist Relationship Specialty Start Date End Date Ben Jose MD [address] [facility] [address] [address] PCP - General 11/15/22
--- OUTSIDE RECORDS SUMMARY | 2025-08-12 10:09 | XMS_ITS | Patient Health Record ---
Author Organization [facility] Address [address] [place] [address] Care Team Providers Care Child Protection Specialist Name Role Phone Ben Jose Primary Care Provider Unavailabl e Allergies No Known Allergies Reason For Referral [...] Problem Status W/U Status Risk Notes Problem 18719738 Radiculopathy, cervical region (M54.12) Active confirmed Problem 29985094 Spinal stenosis, cervical region (M48.02) Active confirmed Problem 415052595 Other cervical disc displacement at C6-C7 level (M50.223) Active confirmed Problem 41253241 Other cervical disc degeneration at C6-C7 level (M50.323) Active confirmed Problem 26254442 Other cervical disc degeneration, high cervical region (M50.31) Active confirmed Plan Of Treatment Pending Test Test Name Order Date SFS - Cervical Spine PT Orde r, Isometrics & Strenghening w/Modalities as needed. 2-3 x Week for 4-6 Weeks 08/09/2024 Insurance Providers Payer Name Payer Address Payer Phone Subscriber Number Group Number Insured Name Patient Relationship to Insured Coverage Start Date Coverage End Date [employer] [address] [place] [address] [id number] PARAS GRIGSBY Self - patient is the insured Medical (General) History Medical History History ICD Code High Blood Pressure Asthma Kidney stones Sleep apnea Do you have a CPAP machine? Yes Do you use the CPAP machine? Yes Surgical History Surgery Date(Month/Year) Knees Hernia Shoulder
--- OUTSIDE RECORDS SUMMARY | 2025-08-12 10:09 | XMS_ITS | Patient Health Record ---
Author Organization The [facility] [place] Address [address] [place] [address] Care Team Providers Care Product Assembler Name Role Phone Joe Mack Primary Care Provider Allergies No Known Allergies Results Component Value Reference Range Notes LIPID PROFILE Reviewed date:04/24/2025 07:09:42 PM Interpretation: Performing Lab: Notes/Report: [facility] , Triglycerides 206 <=150 mg/dL Cholesterol [...] Performing Lab: see note ML - [facility] LB PROF 14(COMP METB) Reviewed date:04/24/2025 07:09:42 PM Interpretation: Performing Lab: Notes/Report: [facility] , Sodium 141 136-145 mmol/L Potassium 4.3 [...] 1.0 Performing Lab: see note ML - [facility] LB C. Difficile PCR Reviewed date:05/18/2025 04:45:05 PM Interpretation: Performing Lab: Notes/Report: [facility] , C. Difficile PCR POSITIVE RESULTS ERICH LED TO DR. MACK Performing Lab: see note - [facility] LB Salmonella/Shigella Screen Reviewed date:05/24/2025 03:45:05 PM Interpretation: Performing Lab: Notes/Report: [facility] , Salmonella/Shigella Screen See Below For Report Salmonella/Shigella Screen Salmonella/Shigella Screen No Salmonella or Shigella recovered. Salmonella/Shigella Screen Performing Lab: see note [facility] LB Campylobacter Culture Reviewed date:05/24/2025 03:45:05 PM Interpretation: Performing Lab: Notes/Report: [facility] , Campylobacter Culture See Below For Report No Campylobacter species isolated. Campylobacter Culture Performing Lab: see note [facility] LB E coli Shiga Toxin EIA Reviewed date:05/24/2025 03:45:05 PM Interpretation: Performing Lab: Notes/Report: [facility] , E coli Shiga Toxin EIA See Below For Report E coli Shiga Toxin EIA E coli Shiga Toxin EIA Negative E coli Shiga Toxin EIA E coli Shiga Toxin EIA Performed at: [facility] E coli Shiga Toxin EIA E coli Shiga Toxin EIA [address] [place], [place] [id number] E coli Shiga Toxin EIA E coli Shiga Toxin EIA Metal Bending Machine Operator: Marv Cartagena PhD, Phone: [phone] E coli Shiga Toxin EIA Performing Lab: see note SEE REPORT - Plumbing Assembler Installer Id information not found for OBX-specific supervisory training specialist legend LC - [facility] LB PROF CHEM 8 (BAS METB) Reviewed date:06/11/2025 12:51:27 PM Interpretation: Performing Lab: Notes/Report: [facility] , Sodium 141 136-145 mmol/L Potassium 3.8 [...] mg/dL Performing Lab: see note ML - [facility] CA echo doppler complete Reviewed date:06/25/2025 07:16:01 PM Interpretation: Performing Lab: Notes/Report: Source Facility: [place] [address] Cardiology Report Signed Patient: SAJAN GRIGSBY MR#: [id number] : 1965 Acct:[id number] Age/Sex: 59 / M ADM Date: 06/25/25 Loc: CARD Attending Dr: ISAAC TANG APRN Ordering Physician: ISAAC TANG APRN Date of Service: 06/25/25 Procedure(s): CA echo doppler complete Accession Number(s): [id number] cc: Ben Mack M.D.; ISAAC TANG APRN Patient Name: SAJAN GRIGSBY MR#: [id number] : 1965 Exam Date: 06/25/2025 Ordering Doctor: ISAAC TANG CNP ECHOCARDIOGRAM REPORT PROCEDURE: CA ECHO DOPPLER COMPLETE INDICATIONS: Shortness of breath COMPARISON: None. DESCRIPTION: COMPLETE ECHOCARDIOGRAM Real-time transthoracic echocardiography with 2D, M-mode, spectral and color flow Doppler performed. QUALITY: Technical quality was good. LEFT VENTRICLE: Normal chamber size. Borderline left ventricular hypertrophy. Global left ventricular systolic function is normal. LV EF: Estimated left ventricular ejection fraction is 60%. DIASTOLIC: Diastolic function is indeterminate. ATRIAL SEPTUM: LEFT ATRIUM: Mild dilatation. RIGHT ATRIUM: Moderate dilatation. RIGHT VENTRICLE: Mild dilatation. Normal right ventricular systolic function. TRICUSPID VALVE: Normal mobility and thickness. No stenosis with trivial regurgitation. Mild pulmonary hypertension. RVSP 36 mmHg. MITRAL VALVE: Normal mobility and thickness. No evidence of mitral valve stenosis. There is no mitral annular calcification. Trivial mitral regurgitation. AORTIC VALVE: Normal trileaflet appearance. Thickened aortic valve. Normal leaflet mobility. No evidence of aortic valve stenosis. Mild aortic regurgitation. AORTIC ROOT: Mildly dilated, measuring 4.3 cm which is mildly increased from previous exam of 4.1cm. The ascending aorta measures 3.6 cm. PULMONIC VALVE: Normal thickness and mobility. No stenosis. No regurgitation. PERICARDIUM: No evidence of pericardial effusion. IVC: Collapses with inspiration. Mild dilatation measuring 2.4 cm. PLEURA: CONCLUSION: 1. Borderline left ventricular hypertrophy with normal systolic function. LVEF is estimated at 60%. 2. Mildly dilated right ventricle with normal systolic function. 3. Mild to moderate biatrial dilatation. 4. Mild aortic regurgitation. 5. Mildly elevated right-sided pressures. 6. Mildly dilated aortic root measuring 4.3 cm. The ascending aorta is normal in size measuring 3.6 cm. Adult Echocardiography Procedure Report Left Ventricle LVEDD (3.7 - 5.6 cm): 6.10 cm LVESD (2.2 - 4.0 cm): 4.00 cm LVIVS thickness (0.6 - 1.2 cm): 0.96 cm LVPW thickness (0.5 - 1.0 cm): 1.03 cm e': 0.12 m/s E - e': 6.04 LVOT Max Gradient: 5.51 mm[Hg] LVOT Area (cm2): 1.17 m/s Peak Velocity (LVOT): 1.17 m/s Mean Velocity (LVOT): 0.73 m/s LVOT Diameter 2.19 cm Left Ventricular Ejection Fraction: 60 % Left Atrium LA Volume Index (2D A2C): 32.64 ml/m2 Left Atrium Systolic Dimension: 4.33 cm Mitral Valve MV E to A Ratio: 0.78 Mitral Valve A-Wave Peak Velocity: 0.92 m/s Mitral Valve E-Wave Peak Velocity: 0.71 m/s Right Ventricle RV Internal Diastolic Dimension: 4.59 cm Aorta AO Root Diam: 4.27 cm Ascending Ao Diam: 3.59 cm Aortic Valve AoV Area (Peak Chandler): 3.03 cm2, 3.03 cm2 AoV Area (VTI): 3.21 cm2, 3.21 cm2 Deceleration Sumner: 1.06 m/s2 Pressure Half-Time: 907.43 ms Peak Velocity(Antegrade Flow): 1.46 m/s Peak Gradient(Antegrade Flow): 8.48 mm[Hg] Mean Velocity(Antegrade Flow): 0.85 m/s Mean Gradient(Antegrade Flow): 3.54 mm[Hg] Velocity Time Integral: 29.61 cm Tricuspid Valve Peak Velocity (Regurgitant Flow): 2.23 m/s, 2.19 m/s, 2.66 m/s, 2.44 m/s Pulmonic Valve Peak Velocity: 1.17 m/s Peak Gradient: 5.39 mm[Hg], 5.48 mm[Hg] Right Atrium Right Atrium Systolic Pressure: 87.22 ml, 87.22 ml Dictated by: Heraclio Yu M.D. on 06/25/2025 at 18:12 Approved by: Heraclio Yu M.D. on 06/25/2025 at 18:16 Dictated By: HERACLIO YU Signed By: 06/25/251816 DD/ 15 TD/TT: Stockroom Keeper: MITCHELL T3 Reviewed date:07/10/2025 04:51:39 PM Interpretation: Performing Lab: Notes/Report: [facility] Free T3 1.89 2.18-3.98 pg/mL Performing Lab: see note - [facility] LB T4 Reviewed date:07/10/2025 04:51:39 PM Interpretation: Performing Lab: Notes/Report: [facility] , T4 Thyroxine 4.90 4.50-12.10 ug/dL Performing Lab: see note - [facility] LB TSH Reviewed date:07/10/2025 04:51:39 PM Interpretation: Performing Lab: Notes/Report: [facility] , Thyroid Stimulating Hormone 0.731 0.358-3.740 uIU/mL Performing Lab: see note ML - [facility] LB TSH Reviewed date:06/11/2025 12:51:28 PM Interpretation: Performing Lab: Notes/Report: [facility] , Thyroid Stimulating Hormone 1.644 0.358-3.740 uIU/mL Performing Lab: see note ML - [facility] LB T4 Reviewed date:06/11/2025 12:51:27 PM Interpretation: Performing Lab: Notes/Report: [facility] , T4 Thyroxine 6.10 4.50-12.10 ug/dL Performing Lab: see note ML - [facility] LB FREE T3 Reviewed date:06/11/2025 12:51:27 PM Interpretation: Performing Lab: Notes/Report: [facility] , Free T3 2.12 2.18-3.98 pg/mL Performing Lab: see note ML - [facility] LB CBC AUTO DIFF Reviewed date:06/11/2025 12:51:27 PM Interpretation: Performing Lab: Notes/Report: [facility] , White Blood Count 5.8 4.0-11.0 10 [...] 0.00-0.03 10 3/uL Performing Lab: see note - [facility] LB E coli Shiga Toxin EIA Reviewed date:05/21/2025 08:24:52 PM Interpretation: Performing Lab: Notes/Report: [facility] , E coli Shiga Toxin EIA See Below For Report E coli Shiga Toxin EIA E coli Shiga Toxin EIA Negative E col i Shiga Toxin EIA E coli Shiga Toxin EIA [facility] E coli Shiga Toxin EIA E coli Shiga Toxin EIA [address] [place] [phone] E coli Shiga Toxin EIA E coli Shiga Toxin EIA Metal Bending Machine Operator: Marv Cartagena PhD, Phone: [phone] E coli Shiga Toxin EIA Performing Lab: see note - [facility] LB SEE REPORT - Plumbing Assembler Installer Id information not found for OBX-specific supervisory training specialist legend TSH Reviewed date:05/15/2025 07:12:38 PM Interpretation: Performing Lab: Notes/Report: [facility] , Thyroid Stimulating Hormone 1.654 0.358-3.740 uIU/mL Performing Lab: see note - [facility] LB T4 Reviewed date:05/15/2025 07:12:38 PM Interpretation: Performing Lab: Notes/Report: [facility] , T4 Thyroxine 6.10 4.50-12.10 ug/dL Performing Lab: see note - [facility] LB PSA Reviewed date:05/15/2025 07:12:38 PM Interpretation: Performing Lab: Notes/Report: [facility] , Prostate Specific Antigen Dx 1.21 <=4.00 ng/mL Performing Lab: see note [facility] FREE T3 Reviewed date:05/15/2025 07:12:38 PM Interpretation: Performing Lab: Notes/Report: [facility] , Free T3 1.31 2.18-3.98 pg/mL Performing Lab: see note ML - [facility] LB CBC AUTO DIFF Reviewed date:04/24/2025 07:09:42 PM Interpretation: Performing Lab: Notes/Report: [facility] , White Blood Count 7.1 4.0-11.0 10 [...] 3/uL Performing Lab: see note ML - [facility] LB Reason For Referral Diagnosis 1 Anemia (D64.9) Referral Organization [facility] Referring Provider First Name Joe Referring Provider Last Name Rebeca Referring Provider Speciality [facility] Referred Provider Lee Hampton Referred Provider [...] tablet as need ed Orally Twice a day; Duration: 90 days Active Chlorthalidone 25 MG 1 tablet orally onc e daily Active Ozempic (0.25 or 0.5 MG/DOSE) 2 MG/3ML 0.25 mg Subcutaneous weekly; Duration: 28 days 07/18/2024 Active Vancomycin HCl 125 MG 1 capsule Orally q id; Duration: 10 days 05/18/2025 Active Fenofibrate 145 mg TAKE 1 TABLET DAILY Active Dupixent 300 MG/2ML as directed Subcutan eous every other week Active Carvedilol 25 mg TAKE 1/2 TABLET TWIC E A DAY Active CPAP Supplies -- Use mask and tubing via CPAP machine every evening; Duration: 90 days 12/07/2023 Active Atorvastatin Calcium 80 MG 1 tablet Oral ly Once a day Active Furosemide 20 MG 1/2 tab Orally Once a day Active Hyoscyamine Sulfate 0.125 MG 1-2 tabs SL SL every 4 hrs PRN abd pain 05/14/2025 Active Cardura 4 MG 1 tablet Orally Once a day; Duration: 90 days Active Hyoscyamine Sulfate 0.125 MG 1-2 tabs SL SL every 4 hrs PRN abd pain 04/16/2025 Active Liothyronine Sodium 25 MCG 1 tablet on a n empty stomach Orally Once a day; Duration: 30 days 05/16/2025 Active Aspirin Adult Low Dose 81 MG 1 tablet Orally Once a day Active FeroSul 325 (65 Fe) MG TAKE 1 TABLET TWICE A DAY Active Viagra 100 MG 1 tablet as needed O rally Once a day; Duration: 30 day(s) 05/14/2025 Active Vancomycin HCl 125 MG 1 capsule Orally q id; Duration: 10 days 05/19/2025 Active Immunizations Vaccine Route [...] Problem Status W/U Status Risk Notes Problem Morbid obesity (disorder) (415750564) Morbid (severe) obesity due to excess calories (E66.01) Active confirmed Problem Hypermetropia (01986672) Hypermetropia, bilateral (H52.03) Active confirmed Problem Presbyopia (78748158) Presbyopia (H52.4) Active confirmed Problem Sudden visual loss (19164452) Sudden visual loss, right eye (H53.131) Active confirmed Problem Centrilobular emphysema (69101865) Centrilobular emphysema (J43.2) Active confirmed Problem Uncomplicated moderate persistent asthma (611562969) Moderate persistent asthma, uncomplicated (J45.40) Active confirmed Problem Inflammatory dermatosis (971332562) Other specified dermatitis (L30.8) Active confirmed Problem Joint pain (49068285) Pain in un specified joint (M25.50) Active confirmed Problem Localized swelli ng, mass and lump, right lower limb (R22.41) Active confirmed Problem Angioneurotic edema (50697001) Angioneurotic edema, initial encounter (T78.3XXA) Active confirmed Problem Long-term current us e of inhaled steroid (419955190) MCFP (current) use of inhaled steroids (Z79.51) Active confirmed Problem Chest pain (68228819) Chest pain (R07.9) Active confirmed Problem Hypertension (72924170) Hypertension (I10) Active confirmed Problem Male hypogonadism (78687553) Hypogonadism male (E29.1) Active confirmed Problem Cervical radiculopathy (39961303) Cervical radiculopathy (M54.12) Active confirmed Problem Hypothyroidism (20967559) Hypothyroidism (E03.9) Active confirmed Problem Coronary artery disease (35864550) Coronary artery disease (I25.10) Active confirmed Problem Anemia (690879001) Anemia (D64.9) Active confir med Problem Dyspnea (002550646) Dyspnea (R06.00) Active con firmed Problem Sleep apnea (78553250) Sleep apnea (G47.30) Active confirmed Problem Obstructive sleep apnea (09357732) Obstructive sleep apnea (G47.33) Active confirmed Problem Malaise (888545474) Malaise (R53.81) Active con firmed Problem 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 Problem Hypertriglyceridemia (231598086) Hypertriglyceridemi a (E78.1) Active confirmed Problem Arthralgia (63445398) Arthralgia (M25.50) Active confirmed Problem Well adult (308447561) Well adult (Z00.00) Active confirmed Problem Irritable bowel syndrome (91525480) Irritable bowel syndrome (K58.9) Active confirmed Problem Cervical disc diseas e (917163371) Cervical disc disease (M50.90) Active confirmed Problem Near syncope (574961836) Near syncope (R55) Active confirmed Problem Overweight (364935659) Over weight (E66.3) Active confirmed Problem Essential tremor (907198513) Benign essential tremor (G25.0) Active confirmed Problem Increased immunoglobulin (692866189) Elevated IgE level (R76.8) Active confirmed Problem Ex-tobacco user (finding) (797317881) History of tobacco abuse (Z87.891) Active confirmed 27 pack-yea r history Problem Mass of neck (609736018) Mass in neck (R22.1) Active confirmed Problem Umbilical hernia (079974454) Hernia, umbilical (K42.9) Active confirmed Problem Chronic obstructive pulmonary disease (58395552) COPD, moderate (J44.9) Active confirmed Problem Acute exacerbation o f chronic obstructive airways disease (606739123) Acute exacerbation of chronic obstructive airways disease (J44.1) Active confirmed Problem Otitis media (36861731) Unspecified otitis media (H66.90) Active confirmed Problem Hypertensive retinopathy (3634564) Hypertensive retinopathy (H35.039) Active confirmed Problem Essential hypertension (30194261) Essential Hypertension (I10) Active confirmed Problem Carpal tunnel syndrome (02767690) Carpal tunnel syndrome, bilateral upper limbs (G56.03) Active confirmed Problem History of headache (738410911) H/O headache (Z87.898) Active confirmed Problem Secondary pulmonary hypertension (29232214) Other secondary pulmonary hypertension (I27.29) Active confirmed Problem Disorder of pharynx (38477388) Disorder of pharynx (J39.2) Active confirmed Problem Oropharyngeal lesion (63908390887142) Oropharyngeal lesion (J39.2) Active confirmed Problem History of COVID-19 (225842899075283549) History of COVID-19 (Z86.16) Active confirmed 06/11/2022 Problem Low back pain (741518212) Low back pain, unspecified (M54.50) Active confirmed Vital Signs Temperature 99.0 degrees Fahrenheit 04/10/2025 Blood pressure diastolic 62 mm Hg 05/22/2025 Height 67 in 05/22/2025 Blood pressure systolic 118 mm Hg 05/22/2025 Weight 253 lbs 05/14/2025 BMI 39.62 kg/m2 05/14/2025 Encounters Encounter Location Date Provider Diagnosis [facility] [address] [facility] [place] [address] 04/10/2025 Joe Hoy Acute bronchitis, unspecified organism J20.9 [facility] [address] [facility] [place] [address] 05/14/2025 Joe Hoy Gastroenteritis K52. 9 [facility] [address] [facility] [place] [address] 05/22/2025 Joe Hoy Hypertension I10 [facility] [address] [facility] [place] [address] 04/16/2025 Joe Hoy [facility] [address] [facility] [place] [address] 04/16/2025 Joe Hoy [facility] [address] [facility] [place] [address] 04/24/2025 Joe Hoy [facility] [address] [facility] [place] [address] 05/15/2025 Joe Hoy Hypothyroidism E03.9 [facility] [address] [facility] [place] [address] 05/18/2025 Joe Hoy [facility] [address] [facility] [place] [address] 05/18/2025 Joe herman [facility] [address] [facility] [place] [address] 05/18/2025 Joe herman [facility] [address] [facility] [place] [address] 05/21/2025 Joe Mack [facility] [address] [place] [address] 05/22/2025 Joe herman [facility] [address] [facility] [place] [address] 05/24/2025 Joe herman [facility] [address] [facility] [place] [address] 06/11/2025 Joe Hoy Hypothyroidism E03.9 and Anemia D64.9 [facility] [address] [place] [address] 06/18/2025 Joe herman [facility] [address] [facility] [place] [address] 07/10/2025 Joe Hoy Hypothyroidism E03.9 Assessments Encounter Date Diagnosis (ICD Code) Assessment Notes Treatment Notes Treatment Clinical Notes Section Notes 04/10/2025 Acute bronchitis, unspecified organism (ICD-10 - J20.9) Rest and drink more liquids, especially water. You may use a humidifier or vaporizer to help keep the drainage moist. Wlkx-rhc-awepdkm Nasal Saline may help the stuffy and runny nose. Use Ibuprofen and or Tylenol as needed for fever, chills, body aches or pain. Children 5 years old should not be given raqz-cpo-nefigqv cough and cold medications such as guaifenesin and dextromethorphan. If you're over age 5, you may try sdxo-qig-qvvpcvw cold medications such as guaifenesin and dextromethorphan, [...] East back into eating by eating bland, rhjd-pt-gtqhkc foods like crackers, toast, gelatin, bananas, rice and chicken. Try to avoid foods/substances including dairy products, caffeine, alcohol, nicotine and fatty or highly seasoned foods. Medications such as ibuprofen or tylenol can make your stomach more upset, so use sparingly if at all. Also avoid zwkx-eoa-iwmsrou anti-diarrheal medications because it can make it harder for your body to eliminate the virus. 05/22/2025 Hypertension (ICD-10 - I10) 05/15/2025 Hypothyroidism (ICD-10 - E03.9) 06/11/2025 Hypothyroidism (ICD-10 - E03.9) 06/11/2025 Anemia (ICD-10 - D64.9) 07/10/2025 Hypothyroidism (ICD-10 - E03.9) Plan Of Treatment Pending Test Test Name [...] Date MMO [employer] [address] [place] [address] [phone] Kayla Grigsby Spouse - patient is the spouse of the insured Medications Administered Medication Instructions Date of Administration Dosage Notes Kenalog-40 03/08/2023 120 mg 120 Medical (General) History [...] G47.33 Other secondary pulmonary hypertension I 27.29 termite technician (current) use of inhaled stero ids Z79.51 Surgical History Surgery Date(Month/Year) hernia repair bilat rotator cuff repair torn meniscus repair bilat
--- OUTSIDE RECORDS SUMMARY | 2025-08-12 10:09 | XMS_ITS | Encounter Summary ---
Author Organization The [facility] Address [address] [place] [address] Care Team Providers Care Stud Setter Name Role Phone Ben Jose MD Primary Care Provider [phone] Reason for Visit * Reason Comments Med Refill Encounter Details Date Type Department Care Team ([facility] st Contact Info) Description 09/06/2023 Refill [facility] [address] [place] [address] Justino Serna MD [address] [facility] [address] [facility] [place] [address] CAD in [place] artery Social History Tobacco Use Types Packs/Day [...] this encounter Visit Diagnoses Diagnosis CAD in [place] artery documented in this encounter Care Teams Stud Setter Relationship Specialty Start Date End Date Ben Jose MD [address] [facility] [address] [place], [place] [phone] PCP - General 11/15/22 documented as of this encounter
--- OUTSIDE RECORDS SUMMARY | 2025-08-12 10:09 | XMS_ITS | Encounter Summary ---
Author Organization The [facility] Address [address] [place] [address] Care Team Providers Care Metal Bed Assembler Name Role Phone Ben Jose MD Primary Care Provider [phone] Encounter Details Date Type Department Care Team (Late st Contact Info) Description 06/26/2025 Results Follow-Up [facility] [address] [place] [address] Ivet Jane, MIXER HELPER [address] [place] [address] Complete Echo (TTE) w/wo Imaging Agent, Strain, 3D, Bubble Study Social History Tobacco Use Types Packs/Day Years Used Date Smoking Tobacco: Former Cigarettes 12 05 1 982 - 2011 Passive Smoke Exposure: Past Smokeless Tobacco: Former Quit: 2001 Alcohol Use Standard Drinks/Week Comments Not Currently 0 (1 standard drink = 0.6 oz pur e alcohol) [place] Safety & Environment Answer Date Rec orded [...] PM EDT documented as of this encounter Miscellaneous Notes * Result Encounter Note - Ivet Jane CNP - 06/26/2025 4:37 PM EDT No significant changes on his ECHO to explain his dyspnea. Recommend he see pulmonary. Will he see someone in [place]? documented in this encounter Plan of Treatment Not on file documented as of this encounter Visit Diagnoses Not on filedocumented in this encounter Care Teams Metal Bed Assembler Relationship Specialty Start Date End Date Ben Jose MD [address] [facility] [place] [phone] PCP - General 11/15/22 documented as of this encounter
--- OUTSIDE RECORDS SUMMARY | 2025-08-12 10:09 | XMS_ITS | Encounter Summary ---
Author Organization [facility] Address [address] [place] [address] Care Team Providers Care Ios Programmer Name Role Phone Ben Jose MD Primary Care Provider [phone] Reason for Visit * Reason Comments Med Refill Encounter Details Date Type Department Care Team ([facility] st Contact Info) Description 02/10/2025 Refill [facility] [address] [facility] [address] [place] [phone] Cesar Dunham MD [address] [facility] [address] [place] [address] Severe persistent asthma with (acute) exacerbation (HCC) [...] (HCC) documented in this encounter Care Teams Ios Programmer Relationship Specialty Start Date End Date Ben Jose MD [address] [place] [address] PCP - General 06/05/23 documented as of this encounter
--- OUTSIDE RECORDS SUMMARY | 2025-08-12 10:09 | XMS_ITS | Clinical Summary ---
Author Organization [facility] Healthcare Address [address] [place] [address] Care Team Providers Care Dye Padder Operator Name Role Phone Ben Jose MD Primary [...] in the morning. Take with meals. Active diclofenac (Voltaren) 75 MG EC tablet Take 75 mg by mouth in the morning and 75 mg before bedtime. Do not crush, chew, or split.. Active furosemide (Lasix) 40 MG tablet 4 Active dupilumab (Dupixent) 300 MG/2ML injectionIndicati ons:Severe persistent asthma with (acute) exacerbation (HCC) Inject 2 mL (300 mg) under the skin every 14 (fourteen) days 4 mL 6 4 08/04/20 25 Discontinu ed(Ineffec tive) Active Problems Problem Noted Date Diagnosed Date Severe persistent asthma with acute exacerbation 11/23/2023 COPD (chronic obstructive pulmonary disease) Essential hypertension 08/04/2022 CAD in [place] artery 08/03/2022 History of coronary artery stent placement 08/03 Encounters Date Type Department Care Team Description 08/04/2025 4:00 PM EDT Office Visit [facility] [address] [place] [address] Cesar Dunham MD Chronic bronchitis, unspecified chronic bronchitis type (HCC) (Primary Dx); Chronic rhinitis 08/04/2025 Bamboo flowsheet [facility] [address] [place] [address] Cesar Dunham MD 08/04/2025 Travel from Last 3 Months Family History [...] 04/30/2025 4:14 PM EDT Plan of Treatment Health Maintenance Due Date Last Done Comments CT Colonography 1963 Colonoscopy 1963 Colorectal Cancer Screening 1963 FIT-DNA 1963 FIT 1963 FOBT 1963 Sigmoidoscopy 1963 Influenza Vaccine (#1) 2025 Insurance [employer] Care Teams Dye Padder Operator Relationship Specialty Start Date End Date Ben Jose MD [address] [place] [address] PCP - General 06/05/23
--- OUTSIDE RECORDS SUMMARY | 2025-08-12 10:18 | XMS_ITS | CCD ---
Author Organization [facility] Team Providers Care Learning Engineer Name Role Phone Dimple Milligan Unavailable YolandaEmma Unavailable Yasmine Joaquin Unavailable SAMSA, MARYURI Consulting [...] Unavailable HOY ., DR VERDIN Admitting Unavailable WESTLAKE, DR PADMINI Ravi Consulting Unavailable HOY ., [...] HOY ., DR VERDIN Primary Care Unavailable SRIDHAR, DR CHACON Consulting Unavailable HOY ., DR VERDIN Primary Care Unavailable ELTAHAWSharmaine, DR CHACON Attending Unavailable SRIDHAR, DR CHACON Admitting Unavailable MARYURI HADDAD Consulting Unavailable MARTINA ., DR VERDIN Primary Care Unavailable MARYURI HADDAD Attending Unavailable SAMSA, MARYURI Admitting Unavailable MARTINA ., DR VERDIN Consulting Unavailable MARTINA ., DR VERDIN Primary Care Unavailable MARTINA ., DR VERDIN Attending Unavailable MARTINA ., DR VERDIN Admitting Unavailable MICKY MORENO Consulting Unavailable ELTAHAWY, DR CHACON Consulting Unavailable MARTINA ., DR VERDIN Primary Care Unavailable ELTAHAWSharmaine, DR CHACON Attending Unavailable SRIDHAR, DR CHACON Admitting Unavailable Lambert Jose MD Primary Care Provider [phone] Lambert Jose MD Primary Care Provider Lambert Jose Primary Care Physician HERACLIO RIVAS Admitting Unavailable HERACLIO RIVAS Attending Unavailable HERACLIO RIVAS Referring Unavailable DAMIAN XAVIER Attending Unavailable INES SERNA Attending Unavailable ISAAC TANG Attending Unavailable ISAAC TANG Attending Unavailable Lee HALE Attending Unavailable Lambert Jose Referring Unavailable GIOVANNY TATUM Referring Unavailable JR. DOSHI GEORGE C Attending Unavailrachel ble GIOVANNY TATUM Attending Unavailable DEBORA DUNHAM Attending Unavailable ANGEL ALCARAZ Attending Unavailable DEBORA DUNHAM Attending Unavailable GIOVANNY TATUM Referring Unavailable Allergies Allergy Classification Reported Allergen(s) Allergy Type Date of Onset Reaction(s) Facility (1 source) No Known Medication Allergies; Translations: [No Known Medication Allergies] Propensity to adverse reactions (disorder) [facility] Repository Medications Current Medications Medication Drug Class(es) Dates Sig (Normalized) Sig (Original) amoxicillin 875 mg oral tablet (1 source) Penicillin-class Antibacterial Start: 02-15-2022 take 1 tablet by mouth every eight hours Amoxicillin 875 MG 1 tablet Orally every 8 hrs for 10 day(s) Feb, Active aspirin 81 mg delayed release oral tablet (20 sources) Platelet Aggregation Inhibitor, Nonsteroidal Anti-inflammatory Drug Start: 07-02-2025 take 1 tablet by mouth once daily aspirin 81 mg Oral EC Tab 81 mg = 1 tab(s), Oral, Daily, Refills(s) 0 Start Date: 07/02/25 Status: Ordered Repeat number: 1 Start: 08-03-2022 aspirin 81 MG chewable tablet CHEW AND SWALLOW 1 TABLET IN THE MORNING 08/03/2022 Active atorvastatin 80 mg oral tablet (20 sources) HMG-CoA Reductase Inhibitor Start: 08-03-2022 take 1 tablet by mouth at bedtime atorvastatin (Lipitor) 80 MG tablet Take 80 mg by mouth at bedtime 08/03/2022 Active Breztri Aerosphere (1 source) Breztri Aerosphe re Active carvedilol 12.5 mg oral tablet (20 sources) alpha-Adrenergic Kali, beta-Adrenergic Kali Start: 09-18-2019 take 1 tablet by mouth twice daily carvedilol 12.5 mg Tab 12.5 mg = 1 tab(s), Oral, BID, High blood pressure Start Date: 09/18/19 Status: Ordered Repeat number: 1 take 1 tablet by mouth in the mo rning carvedilol (Coreg) 25 MG tablet Take 1 tablet by mouth in the morning and 1 tablet before bedtime. Active Coreg Active chlorhexidine gluconate 1.2 mg/ml mouthwash (1 source) Start: 02-15-2022 take 10 mL by mouth twice daily Peridex 0.12 % gargle 10 ml Mouth/Throat twice daily Feb, Active clopidogrel 75 mg oral tablet (20 sources) P2Y12 Platelet Inhibitor Start: 09-06-2023 take 1 tablet by mouth in the morning clopidogrel (Plavix) 75 MG tablet Take 75 mg by mouth in the morning. 09/06/2023 Active Clopidogrel Bisu lfate 75 MG Oral for 90 Days Active diclofenac sodium 75 mg delayed release oral tablet (20 sources) Nonsteroidal Anti-inflammatory Drug Start: 07-02-2025 take 1 tablet by mouth twice daily diclofenac sodium 75 mg Oral EC Tab 75 mg = 1 tab(s), Oral, BID, Refills(s) 0 Start Date: 07/02/25 Status: Ordered Repeat number: 1 End: 07-15-2024 take 1 tablet by mouth in the morning diclofenac (Voltaren) 50 MG EC tablet Take 50 mg by mouth in the morning and 50 mg before bedtime. Do not crush, chew, or split. . 07/15/2024 Discontinued (Therapy completed) doxazosin 4 mg oral tablet (20 sources) alpha-Adrenergic Kali Start: 07-02-2025 take 1 tablet by mouth once daily Cardura 4 mg Tab 4 mg = 1 tab(s), Oral, Daily, Refills(s) 0 Start Date: 07/02/25 Status: Ordered Repeat number: 1 famotidine 40 mg oral tablet (4 sources) Histamine-2 Receptor Antagonist Start: 02-17-2023 End: 07-15-2024 take 1 tablet by mouth at bedtime famotidine (Pepcid) 40 MG tablet Take 40 mg by mouth at bedtime 02/18/2023 Active fenofibrate 145 mg oral tablet (20 sources) Peroxisome Proliferator Receptor alpha Agonist Start: 09-18-2019 take 1 tablet by mouth once daily fenofibrate 145 mg Tab 145 mg = 1 tab(s), Oral, Daily, Other (see comment) Start Date: 09/18/19 Status: Ordered Repeat number: 1 ferrous sulfate 325 mg oral tablet (18 sources) Start: 07-02-2025 take 1 tablet by mouth twice daily ferrous sulfate 325 mg Tab 325 mg = 1 tab(s), Oral, BID, Refills(s) 0 Start Date: 07/02/25 Status: Ordered Repeat number: 1 furosemide 20 mg oral tablet (20 sources) Loop Diuretic Start: 07-02-2025 take 10 mg by mouth once daily Lasix 20 mg Tab 10 mg = 0.5 tab(s), Oral, Daily, Refills(s) 0 Start Date: 07/02/25 Status: Ordered Repeat number: 1 Start: 11-05-2024 furosemide (La six) 40 MG tablet 11/05/2024 Active Start: 08-03-2022 End: 12-04-2024 take 2 tablets by mouth once daily furosemide (Lasix) 20 MG tablet Take 40 mg by mouth Daily 08/03/2022 12/04/2024 Discontinued Start: 08-03-2022 furosemide (La six) 20 MG tablet TAKE ONE-HALF (1/2) TABLET DAILY 08/03/2022 Active Furosemide 20 MG Oral for 90 Days Active hydrOXYzine hydrochloride 50 mg oral tablet (18 sources) Antihistamine hydrOXYzine HCl (Atarax) 50 MG tablet Take by mouth. Active liothyronine sodium 0.025 mg oral tablet (1 source) l-Triiodothyronine Start: 07-16-20 take 1 tablet by mouth once daily Cytomel 25 mcg Tab 25 mcg = 1 tab(s), Oral, Daily, Refills(s) 0 Start Date: 07/16/25 Status: Ordered Repeat number: 1 lisinopril 20 mg oral tablet (20 sources) Angiotensin Converting Enzyme Inhibitor Start: 07-02-20 take 1 tablet by mouth once daily lisinopril 20 mg Tab 20 mg = 1 tab(s), Oral, Daily, Refills(s) 0 Start Date: 07/02/25 Status: Ordered Repeat number: 1 Lisinopril 10 MG Oral for 90 Days [...] Orally bid for 5 day(s) Feb, Active sildenafil 100 mg oral tablet (1 source) Phosphodiesterase 5 Inhibitor Start: 07-02-2025 take 1 tablet by mouth once daily as needed Viagra 100 mg Tab 100 mg = 1 tab(s), Oral, Daily, PRN erectile dysfunction, Refills(s) 0 Start Date: 07/02/25 Status: Ordered Repeat number: 1 theophylline 400 mg extended release oral tablet [...] MG tablet Chlorthalidone 07/15/2024 Discontinued (Therapy completed) 2 ml dupilumab 150 mg/ml auto-injector (20 sources) Interleukin-4 Receptor alpha Antagonist Start: 07-15-2024 End: 08-04-2025 dupilumab (Dupixent) 300 MG/2ML injection Indications: Severe persistent asthma with (acute) exacerbation (HCC) Inject 2 mL (300 mg) under the skin every 14 (fourteen) days 4 mL 6 07/15/2024 08/04/2025 Discontinued (Ineffective) Start: 01-24-2024 End: 07-15-2024 Dupixent 300 MG/2ML injectio n 01/24/2024 07/15/2024 Discontinued (Reorder) olmesartan (4 sources) Angiotensin 2 Receptor Kali Benicar Not-Taking triamcinolone acetonide 40 mg/ml injectable suspension (3 sources) Corticosteroid Start: 02-17-2023 Kenalog-40 14 Feb, 2023 40 mg Problems Active Problems Problem Classification Problem Date Documented Date Episodic/Chronic Abdominal hernia (1 source) Umbilical hernia 07-02-2025 Episodic Allergic reactions (7 sources) Urticaria, unspecified; Translations: [Idiopathic urticaria] Onset: 02-25-2023 Episodic Asthma (20 sources) Moderate persistent asthma, uncomplicated; Translations: [Exacerbation of severe persistent asthma] Onset: 07-01-2022 07-15-2024 Chronic Calculus of urinary tract (1 source) Kidney stone 09-18-2019 Episodic Chronic obstructive pulmonary disease and bronchiectasis (15 sources) Chronic obstructive lung disease; Translations: [Chronic obstructive pulmonary disease, unspecified] Onset: 08-04-2022 12-04-2024 Chronic Coronary atherosclerosis and other heart disease (20 sources) Atherosclerotic heart disease of [place] coronary artery without angina pectoris; Translations: [Coronary atherosclerosis due to lipid rich plaque] Onset: 08-03-2022 Chronic Deficiency and other anemia (2 sources) Anemia; Translations: [Anemia, unspecified] Onset: 07-16-2025 Episodic Diabetes mellitus without complication (1 source) Diabetes mellitus 09-30-2019 Chronic Comment on above: new diagnosis on no meds yet Disorders of lipid metabolism (3 sources) Hypertriglyceridemia; Translations: [Mixed hyperlipidemia] Onset: 04-18-2025 07-02-2025 Chronic Esophageal disorders (4 sources) Walker's esophagus; Translations: [Walker's esophagus without dysplasia] Onset: 07-16-2025 Chronic Essential hypertension (20 sources) Essential (primary) hypertension; Translations: [Essential hypertension] [...] care facility (current) drug therapy; Translations: [OTH LONGTERM CURRENT DRUG THERAPY] Onset: 03-18-2023 Episodic Other aftercare (1 source) [facility] (current) use of aspirin; Translations: [LONGTERM CURRENT USE OF ASPIRIN] Onset: 02-27-2023 Episodic Other endocrine disorders (1 source) Male hypogonadism 07-02-2025 Chronic Other hereditary and degenerative nervous system conditions (1 source) Essential tremor 07-02-2025 Chronic Other lower respiratory disease (6 sources) Shortness of breath; Translations: [SHORTNESS OF BREATH] Onset: 04-18-2022 Episodic Other lower respiratory disease (2 sources) Shortness of breath; Translations: [Shortness of Breath] Onset: 07-10-2025 Episodic Other lower respiratory disease (2 sources) Other forms of dyspnea; Translations: [Other forms of dyspnea] Onset: 06-06-2025 Episodic Other non-traumatic joint disorders (4 sources) Pain in left knee; Translations: [Pain in joint, lower leg] 11-19-2024 Episodic Other nutritional; endocrine; and metabolic disorders (1 source) Body mass index 30+ - obesity 07-16-2025 Chronic Other nutritional; endocrine; and metabolic disorders (1 source) Obese class III 07-02-2025 Chronic Other screening for suspected conditions (not mental disorders or infectious disease) (1 source) Encounter for screening for malignant neoplasm of prostate; Translations: [ENC SCREEN MALIG NEOPLASM PROSTATE] Onset: 01-28-2023 Episodic Other skin disorders (2 sources) Dystrophia unguium; Translations: [Nail dystrophy] 04-30-2025 Episodic Other upper respiratory disease (2 sources) Chronic rhinitis; Translations: [Chronic rhinitis] 08-04-2025 Chronic Pulmonary heart disease (1 source) Pulmonary hypertension 07-02-2025 Chronic Residual codes; unclassified (4 sources) Obstructive sleep apnea (adult) (pediatric); Translations: [OBSTRUCTIVE SLEEP APNEA] Onset: 07-27-2022 Chronic Residual codes; unclassified (1 source) Obstructive sleep apnea syndrome 07-02-2025 Chronic Retinal detachments; defects; vascular occlusion; and retinopathy (1 source) Hypertensive retinopathy 09-18-2019 Chronic Substance-related disorders (1 source) Nicotine dependence, cigarettes, uncomplicated; Translations: [NICOTINE DEPEND CIGARETTES UNCOMP] Onset: 02-27-2023 Chronic Thyroid disorders (1 source) Hypothyroidism 07-02-2025 Chronic Unclassified (2 sources) 1 month follow up Onset: 07-10-2025 Past or Other Problems Problem Classification Problem [...] Test Name Value Interpretation Reference Range Facility Ambulatory Visit Summaryon 0 07-16-2025 Ambulatory Visit Summary Ambulatory Visit Summary PARAS GRIGSBY :1965 Visit Date:07/16/2025 Ambulatory Visit Instructions Your Diagnosis Chronic GERD Barretts esophagus Anemia Your Care Team Attending Physician - ALEXIA LEWIS, Lee Wagner Primary Care Physician - Lambert Jose MD Referring Physician - Lambert Jose MD This Is Your Medications List Contact prescribing physician if questions or concerns aspirin (aspirin 81 mg Oral EC Tab) atorvastatin (atorvastatin 80 mg Tab) carvedilol (carvedilol 12.5 mg Tab) clopidogrel (Plavix 75 mg Tab) diclofenac (diclofenac sodium 75 mg Oral EC Tab) doxazosin (Cardura 4 mg Tab) fenofibrate (fenofibrate 145 mg Tab) ferrous sulfate (ferrous sulfate 325 mg Tab) furosemide (Lasix 20 mg Tab) liothyronine (Cytomel 25 mcg Tab) lisinopril (lisinopril 20 mg Tab) sildenafil (Viagra 100 mg Tab) Procedures Performed Colonoscopy (04/26/2017), EGD - esophagogastroduodenoscopy (04/26/2017), ESWL of kidney, Repair of meniscus, Repair of umbilical hernia, Rotator cuff repair, Tonsillectomy. Discharge Vitals Heart Rate (Peripheral) 76 Respiratory Rate 16 Blood Pressure 138/80 Height 170 cm Height 67 in Weight 113.2 kg Weight 249.563 lb BMI 39.17 Medications What How Much When Instructions Unchanged aspirin (aspirin 81 mg Oral EC Tab) 1 Tablets By Mouth Every day Contact prescribing physician if questions or concerns Unchanged atorvastatin (atorvastatin 80 mg Tab) 1 Tablets By Mouth Every day Contact prescribing physician if questions or concerns Unchanged carvedilol (carvedilol 12.5 mg Tab) 1 Tablets By Mouth 2 times a day Contact prescribing physician if questions or concerns Unchanged clopidogrel (Plavix 75 mg Tab) 1 Tablets By Mouth Every day Contact prescribing physician if questions or concerns Unchanged diclofenac (diclofenac sodium 75 mg Oral EC Tab) 1 Tablets By Mouth 2 times a day Contact prescribing physician if questions or concerns Unchanged doxazosin (Cardura 4 mg Tab) 1 Tablets By Mouth Every day Contact prescribing physician if questions or concerns Unchanged fenofibrate (fenofibrate 145 mg Tab) 1 Tablets By Mouth Every day Contact prescribing physician if questions or concerns Unchanged ferrous sulfate (ferrous sulfate 325 mg Tab) 1 Tablets By Mouth 2 times a day Contact prescribing physician if questions or concerns Unchanged furosemide (Lasix 20 mg Tab) 0.5 Tablets By Mouth Every day Contact prescribing physician if questions or concerns Unchanged liothyronine (Cytomel 25 mcg Tab) 1 Tablets By Mouth Every day Contact prescribing physician if questions or concerns Unchanged lisinopril (lisinopril 20 mg Tab) 1 Tablets By Mouth Every day Contact prescribing physician if questions or concerns Unchanged sildenafil (Viagra 100 mg Tab) 1 Tablets By Mouth Every day as needed for erectile dysfunction Contact prescribing physician if questions or concerns Allergies No Known Allergies No Known Medication Allergies Problems Ongoing - Any problem that you are currently receiving treatment for. Anemia Asthma Barretts esophagus BMI 39.0-39.9,adult CAD (coronary artery disease) Chronic GERD Chronic obstructive pulmonary disease Class 3 obesity Essential tremor Hypertension Hypertensive retinopathy Hypertriglyceridemia Hypogonadism male Hypothyroidism KAMERON (obstructive sleep apnea) Pulmonary hypertension Historical - Any problem that you are no longer receiving treatment for. Kidney stone Umbilical hernia Patient Survey You may receive a survey via text or e-mail asking about your office visit. Please share your experience with us by completing your survey. We appreciate your feedback and thank you for choosing us for your care. Patient Portal You may access all of your results and other medical record information on our secure patient portal. If you are not signed up for this yet, please contact [employer] at [phone] to get signed up today. Language Information Language assistance services are available as needed. Normal [facility] Follow-Upon 07-10-2025 Follow-Up [id number] Jada Grigsby 1965 M Date Provider Department Center 07/10/2025 [id number] TANG GENNARO Buck Family History Problem Relation Age of Onset Heart failure Father Coronary artery disease Father Family Status - Relation Status Age at Mother Father Level of Service:82792 MD OFFICE/OUTPATIENT ESTABLISHED MOD MDM 30 MIN Reason for Visit and Comments: Coronary Artery Disease [187] Hypertension [274677] 1 month follow up [Other] - S/P right/left heart cath Echo done 3 weeks ago at [facility] [Other] Stent placement 2021 [Other] - Stent placement 2021 Shortness of Breath [520275] - SOB and VILLAVICENCIO [facility] Orders Onlyon 06-26-2025 Orders Only [id number] Jada Grigsby 1965 M Date Provider Department Center 06/26/2025 [id number], HISTORICAL GENNARO Buck Family History Problem Relation Age of Onset Heart failure Father Coronary artery disease Father Family Status - Relation Status [facility] Mother [facility] H&P reviewed. The janna garcia was examined and there are no changes to the H&P. Will proceed with coronary angiography and right heart catheterization for further evaluation of his symptoms. Consent for blood products obtained. Risks, benefits, and alternatives to procedure discussed with patient in detail who expressed understanding and agreed to proceed. [facility] NURSNOTEon 06-12-2025 NURSNOTE RN educated pt on [...] off of unit with all of belongings. [facility] Orders Onlyon 06-06-2025 Orders Only [id number] PetrJada Juan 1965 M Date Provider Department Center 06/06/2025 ATUL DIETZ [facility] Family History Problem Relation Age of Onset Heart failure Father Coronary artery disease Father Family Status - Relation Status Age at Mother [facility] Medic [facility] SUBJECTIVE Chief Complaint Patient presents with Chest Pain Coronary Artery Disease Paras S Tanikaantonio is a 59 y.o. male here for [...] and chest pain with exertion. 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 or get up into his [...] Problem List Diagnosis Chest pain CAD in [place] artery Essential hypertension COPD (chronic obstructive pulmonary disease) (CMS/[facility]) S/P drug eluting coronary stent placement Hyperplastic polyp of intestine Dyspnea Shortness of breath Severe persistent asthma with acute exacerbation ([facility]/HCC) Degeneration of intervertebral disc of cervical region Other cervical disc displacement at C6-C7 level Radiculopathy, cervical region Spinal stenosis, cervical region Hypertensive retinopathy Umbilical hernia VILLAVICENCIO (dyspnea on exertion) Past Medical History: Diagnosis Date COPD (chronic obstructive pulmonary disease) (CMS/[facility]) Coronary artery disease Hyperlipidemia Hypertension Sleep apnea [...] is w (more content not included)... [facility] Office Visiton 06-05-2025 Follow-up visit [id number] Jada Grigsby S 1965 M Date Provider Department Center 06/05/2025 ISAAC TELLEZ Family History Problem Relation Age of Onset Heart failure Father Coronary artery disease Father Family Status - Relation Status Age at Mother Father Level of Service:82216 MD OFFICE/OUTPATIENT ESTABLISHED MOD MDM 30 MIN Reason for Visit and Comments: Chest Pain [328261] Coronary Artery Disease [187] [facility] Orders Onlyon 04-25-2025 Orders Only [id number] Jada Grigsby S 1965 M Date Provider Department Center 04/25/2025 DAMIAN VARGAS Family History Problem Relation Age of Onset Heart failure Father Coronary artery disease Father Family Status - Relation Status Age at Mother Father [facility] Office Visiton 04-18-2025 Follow-up visit [id number] Mando Grigsbyanjel Juan 1965 M Date Provider Department Center 04/18/2025 DAMIAN VARGAS Family History Problem Relation Age of Onset Heart failure Father Coronary artery disease Father Family Status - Relation Status Age at Mother Father Level of Service:10409 MD OFFICE/OUTPATIENT ESTABLISHED MOD [facility] 30 MIN [facility] MR KNEE LEFT WO IV CONTRASTo n [...] knee with age indeterminate metallic foreign body. [facility] Radiology Study observation (narrative) [facility] Healthcare Office Visiton 10-07-2024 Follow-up visit [id number] Jada Grigsby 1965 M Date Provider Department Center 10/07/2024 [id number], EHAB CARD [facility] Family History Problem Relation Age of Onset Heart failure Father Coronary artery disease Father Family Status - Relation Status Age at Father Level of Service:86574 MD OFFICE/OUTPATIENT ESTABLISHED LOW MDM 20 MIN [facility] THEOPHYLLINEon 03-15-2023 THEOPHYLLINE 5.9 ug/mL Critically low 10.0-20.0 [facility] Comment on above: Performed By: #### T ALAN #### [facility] [address] [place] [address] Dr. Navneet Aguilar CHUCKIE by IFAon 01-23-2023 Antinuclear Antibodies, IFA Positive Abnormal [facility] Comment on above: Result Comment: Nega tive <1:80 Borderline 1:80 Positive >1:80 Performed By: #### C BC #### [facility] [address] [address] [address] Navneet Aguilar Centriole Pattern Normal [facility] Comment on above: Performed By: #### C BC #### [facility] [address] [address] [address] Navneet Aguilar Centromere Pattern Normal [facility] Comment on above: Performed By: #### C BC #### [facility] [address] [address] [address] Navneet Aguilar Homogeneous Pattern 1:80 Normal [facility] Comment on above: Result Comment: ICAP nomenclature: AC-1 Performed By: #### C BC #### [facility] [address] [place], [place] [address] Dr. Navneet Aguilar Midbody Pattern Normal [facility] Comment on above: Performed By: #### C BC #### [facility] [address] [place], [place] [address] Dr. Navneet Aguilar Note: Comment Normal [facility] Comment on above: Result Comment: For more [...] titers Nucleosomes, Histones Drug-induced SLE Speckled Sm, URBAN PLANNING PROFESSOR, SCL-70, SLE,MCTD,PSS (diffuse form), SS-A/SS-B Sjogrens Nucleolar SCL-70, PM-1/SCL High titers Scleroderma, PM/DM Centromere Centromere PSS (limited form) w/Crest syndrome variable Nuclear Dot [id number] Primary Biliary Cirrhosis Nuclear GP210, Primary Biliary Cirrhosis Membrane ofelia A,B,C Performed By: #### C BC #### [facility] [address] [place] [address] Dr. Navneet Aguilar Nuclear Dot Pattern Normal [facility] Comment on above: Performed By: #### C BC #### [facility] [address] [place] [address] Dr. Navneet Aguilar Nuclear Membrane Pattern Normal [facility] Comment on above: Performed By: #### C BC #### [facility] [address] [place] [address] Dr. Navneet Aguilar Nucleolar Pattern Normal [facility] Comment on above: Performed By: #### C BC #### [facility] [address] [place] [address] Dr. Navneet Aguilar PCNA Pattern Normal [facility] Comment on above: Performed By: #### C BC #### [facility] [address] [place] [address] Dr. Navneet Aguilar Speckled Pattern Normal [facility] Comment on above: Performed By: #### C BC #### [facility] [address] [place] [address] Dr. Navneet Aguilar Spindle Apparatus Pattern Normal [facility] Comment on above: Performed By: #### C BC #### [facility] [facility] [address] [place] [address] Dr. Navneet Aguilar INSULINon 01-23-2023 Insulin 50.9 uIU/mL Critically high 2.6-24.9 [facility] Comment on above: Performed By: #### I NSULIN #### [facility] [address] [place] [address] Dr. Navneet Aguilar ANTISTREPTOLYSIN O AB (ASO)o n 01-22-2023 Antistreptolysin O Ab 55.6 IU/mL Normal 0.0-200.0 [facility] Comment on above: Performed By: #### H GB #### [facility] [address] [place] [address] Dr. Navneet Aguilar RHEUMATOID FACTORon 01-23-20 RA Latex Turbid. <10.0 Normal <14.0 [facility] Comment on above: Performed By: #### H GB #### [facility] [address] [place] [address] Dr. Navneet Aguilar CBC AUTO DIFFon 01-21-2023 BASO # 0.0 103/ul Normal 0.0-0.1 [facility] Comment on above: Performed By: #### C BC #### [facility] [address] [place] [address] Dr. Navneet Aguilar Basophils/100 WBC (Bld) 0.8 % Normal 0.2-2.0 [facility] Comment on above: Performed By: #### C BC #### [facility] [address] [place] [address] Dr. Navneet Aguilar EO # 0.1 103/ul Normal 0.0-0.7 [facility] Comment on above: Performed By: #### C BC #### [facility] [address] [place] [address] Dr. Navneet Aguilar Eosinophils/100 WBC (Bld) 2.1 % Normal 0.9-7.0 [facility] Comment on above: Performed By: #### C BC #### [facility] [address] [place] [address] Dr. Navneet Aguilar Erythrocyte distribution width (RBC) [Ratio] 13.7 % Normal 11.0-15.0 [facility] Comment on above: Performed By: #### C BC #### [facility] [address] [place] [address] Dr. Navneet Aguilar Hematocrit (Bld) [Volume fraction] 37.6 % Critically low 42.0-54.0 [facility] Comment on above: Performed By: #### C BC #### [facility] [address] [place] [address] Dr. Navneet Aguilar Hemoglobin (Bld) [Mass/Vol] 12.7 g/dL Critically low 14.0-18.0 [facility] Comment on above: Performed By: #### C BC #### [facility] [address] [place] [address] Dr. Navneet Aguilar IG # 0.01 10e3/ul Normal 0.00-0.03 [facility] Comment on above: Performed By: #### C BC #### [facility] [address] [place] [address] Dr. Navneet Aguilar IG % 0.2 % Normal 0.0-0.5 [facility] Comment on above: Performed By: #### C BC #### [facility] [address] [place] [address] Dr. Navneet Aguilar LYMPH # 1.8 103/ul Normal 1.2-3.8 [facility] Comment on above: Performed By: #### C BC #### [facility] [address] [place] [address] Dr. Navneet Aguilar Lymphocytes/100 WBC (Bld) 33.1 % Normal 20.5-60.0 [facility] Comment on above: Performed By: #### C BC #### [facility] [address] [place] [address] Dr. Navneet Aguilar MANUAL DIFF REQ NO Normal [facility] Comment on above: Performed By: #### C BC #### [facility] [address] [place] [address] Dr. Navneet Aguilar MCH (RBC) [Entitic mass] 29.4 pg Normal 25.9-34.0 [facility] Comment on above: Performed By: #### C BC #### [facility] [address] [place] [address] Dr. Navneet Aguilar MCHC (RBC) [Mass/Vol] 33.8 g/dL Normal 29.9-35.2 [facility] Comment on above: Performed By: #### C BC #### [facility] [address] [place] [address] Dr. Navneet Aguilar MCV (RBC) [Entitic vol] 87.0 fL Normal 80.0-94.0 [facility] Comment on above: Performed By: #### C BC #### [facility] [address] [place] [address] Dr. Navneet Aguilar MONO # 0.4 103/ul Normal 0.3-0.8 [facility] Comment on above: Performed By: #### C BC #### [facility] [address] [place] [address] Dr. Navneet Aguilar Monocytes/100 WBC (Bld) 8.1 % Normal 1.7-12.0 [facility] Comment on above: Performed By: #### C BC #### [facility] [address] [place] [address] Dr. Navneet Aguilar NEUT # 2.9 103/ul Normal 1.4-6.5 [facility] Comment on above: Performed By: #### C BC #### [facility] [address] [place] [address] Dr. Navneet Aguilar Neutrophils/100 WBC (Bld) 55.7 % Normal 43.0-75.0 [facility] Comment on above: Performed By: #### C BC #### [facility] [address] [place] [address] Dr. Navneet Aguilar Platelet mean volume (Bld) [Entitic vol] 10.6 fL Normal 9.5-13.5 [facility] Comment on above: Performed By: #### C BC #### [facility] [address] [address] [address] Navneet Aguilar PLT 236 103/ul Normal 150-450 [facility] Comment on above: Performed By: #### C BC #### [facility] [address] [address] [address] Navneet Aguilar RBC 4.32 106/ul Critically low 4.70-6.10 [facility] Comment on above: Performed By: #### C BC #### [facility] [address] [address] [address] Navneet Aguilar WBC 5.3 103/ul Normal 4.0-11.0 [facility] Comment on above: Performed By: #### C BC #### [facility] [address] [place] [address] Dr. Navneet Aguilar CRPon 01-21-2023 CRP [Mass/Vol] mg/L Normal <=1.0 [facility] Comment on above: Performed By: #### H GB #### [facility] [address] [place] [address] Dr. Navneet Aguilar FREE THYROXINE INDEX T7on FTI 2.59 Normal 1.30-4.50 [facility] Comment on above: Performed By: #### C BC #### [facility] [address] [place] [address] Dr. Navneet Aguilar T3U 32.0 % Critically low 33.0-40.0 [facility] Comment on above: Performed By: #### C BC #### [facility] [address] [address] [address] Navneet Aguilar T4 [Mass/Vol] 8.10 ug/dL Normal 4.50-12.10 [facility] Comment on above: Performed By: #### C BC #### [facility] [address] [place] [address] Dr. Navneet Aguilra GLYCOHEMOGLOBIN A1Con 2022 ADA RECOMMENDATION SEE BELOW Normal [facility] Comment on above: Result Comment: ADA RECOMMENDED LIMIT 4.0 - 6.0 ADA THERAPEUTIC TARGET < 7.0 ACTION SUGGESTED > 7.0 Performed By: #### H GB #### [facility] [address] [address] [address] Navneet Aguilar Glucose [Mass/Vol] 126 mg/dL Normal [facility] Comment on above: Performed By: #### H GB #### [facility] [address] [place] [address] Dr. Navneet Aguilar HbA1c (Bld) [Mass fraction] 6.0 % Normal 4.5-6.2 [facility] Comment on above: Performed By: #### H GB #### [facility] [address] [place] [address] Dr. Navneet Aguilar LIPID PROFILEon 01-21-2023 CHOL-HDL RATIO NORM SEE BELOW Normal [facility] Comment on above: Result Comment: 3.3 - 4.4 LOW RISK 4.4 - 7.1 AVERAGE RISK 7.1 - 11.0 MODERATE RISK >11.0 HIGH RISK Performed By: #### C BC #### [facility] [address] [place] [address] Dr. Navneet Aguilar Cholesterol [Mass/Vol] 96 mg/dL Normal <=200 [facility] Comment on above: Performed By: #### C BC #### [facility] [address] [place] [address] Dr. Navneet Aguilar Cholesterol in HDL [Mass/Vol] 45 mg/dL Normal 40-60 [facility] Comment on above: Performed By: #### C BC #### [facility] [address] [place] [address] Dr. Navneet Aguilar Cholesterol in LDL [Mass/Vol] 37.2 mg/dL Normal [facility] Comment on above: Performed By: #### C BC #### [facility] [address] [place] [address] Dr. Navneet Aguilar Cholesterol.total/ Cholesterol in HDL [Mass ratio] 2.1 {ratio} Normal [facility] Comment on above: Performed By: #### C BC #### [facility] [address] [place] [address] Dr. Navneet Aguilar HDL NORMAL > or = 60 mg/dl - LO W CARDIOVASCULAR RISK <40 mg/dl - HIGH CARDIOVASCULAR RISK Normal [facility] Comment on above: Performed By: #### C BC #### [facility] [address] [address] [address] Navneet Aguilar LDL CALC NORMAL SEE BELOW Normal [facility] Comment on above: Result Comment: <100 mg/dl OPTIMAL 100 - 129 mg/dl NEAR OR ABOVE OPTIMAL 130 - 159 mg/dl BORDERLINE HIGH 160 - 189 mg/dl HIGH >190 mg/dl VERY HIGH Performed By: #### C BC #### [facility] [address] [address] [address] Navneet Aguilar Triglyceride [Mass/Vol] 69 mg/dL Normal <=150 [facility] Comment on above: Performed By: #### C BC #### [facility] [address] [address] [address] Navneet Aguilar VLDL CALC 13.8 mg/dL Normal [facility] Comment on above: Performed By: #### C BC #### [facility] [address] [address] [address] Navneet Aguilar OCC BLD IMMUNO SCREENon 01-04 OCCULT BLOOD Negative Normal NEGATIVE [facility] Comment on above: Performed By: #### O BSCRN #### [facility] [address] [address] [address] Navneet Aguilar PROF 14(COMP METB)on 023 Albumin [Mass/Vol] 4.1 g/dL Normal 3.4-5.0 [facility] Comment on above: Performed By: #### C BC #### [facility] [address] [address] [address] Navneet Aguilar Albumin/Globulin [Mass ratio] 1.4 {ratio} Normal [facility] Comment on above: Performed By: #### C BC #### [facility] [address] [address] [address] Navneet Aguilar ALP [Catalytic activity/Vol] 40 U/L Critically low 46-116 [facility] Comment on above: Performed By: #### C BC #### [facility] [address] [address] [address] Navneet Aguilar ALT [Catalytic activity/Vol] 33 U/L Normal 16-63 [facility] Comment on above: Performed By: #### C BC #### [facility] [address] [place] [address] Dr. Navneet Aguilar Anion gap [Moles/Vol] 14.6 mmol/L Normal [facility] Comment on above: Performed By: #### C BC #### [facility] [address] [place] [address] Dr. Navneet Aguilar AST [Catalytic activity/Vol] 33 U/L Normal 15-37 [facility] Comment on above: Performed By: #### C BC #### [facility] [address] [place] [address] Dr. Navneet Aguilar Bilirubin [Mass/Vol] 0.4 mg/dL Normal 0.2-1.0 [facility] Comment on above: Performed By: #### C BC #### [facility] [address] [place] [address] Dr. Navneet Aguilar Calcium [Mass/Vol] 9.2 mg/dL Normal 8.5-10.1 [facility] Comment on above: Performed By: #### C BC #### [facility] [address] [place] [address] Dr. Navneet Aguilar Chloride [Moles/Vol] 109 mmol/L Critically high 98-107 [facility] Comment on above: Performed By: #### C BC #### [facility] [address] [place] [address] Dr. Navneet Aguilar CO2 [Moles/Vol] 23.1 mmol/L Normal 21.0-32.0 [facility] Comment on above: Performed By: #### C BC #### [facility] [address] [place] [address] Dr. Navneet Aguilar Creatinine [Mass/Vol] 1.12 mg/dL Normal 0.70-1.30 [facility] Comment on above: Performed By: #### C BC #### [facility] [address] [place] [address] Dr. Navneet Aguilar EGFR-AF SIERRA LEONEAN >60 Normal >=60 [facility] Comment on above: Performed By: #### C BC #### [facility] [address] [place] [address] Dr. Navneet Aguilar EGFR-NON AF SIERRA LEONEAN >60 Normal >=60 [facility] Comment on above: Performed By: #### C BC #### [facility] [address] [place] [address] Dr. Navneet Aguilar Globulin (S) [Mass/Vol] 2.9 g/dL Normal [facility] Comment on above: Performed By: #### C BC #### [facility] [address] [place] [address] Dr. Navneet Aguilar Glucose [Mass/Vol] 109 mg/dL Critically high 74-106 [facility] Comment on above: Performed By: #### C BC #### [facility] [address] [place] [address] Dr. Navneet Aguilar Potassium [Moles/Vol] 3.7 mmol/L Normal 3.5-5.1 [facility] Comment on above: Performed By: #### C BC #### [facility] [address] [place] [address] Dr. Navneet Aguilar Protein [Mass/Vol] 7.0 g/dL Normal 6.4-8.2 [facility] Comment on above: Performed By: #### C BC #### [facility] [address] [place] [address] Dr. Navneet Aguilar Sodium [Moles/Vol] 143 mmol/L Normal 136-145 [facility] Comment on above: Performed By: #### C BC #### [facility] [address] [place] [address] Dr. Navneet Aguilar Urea nitrogen [Mass/Vol] 18.0 mg/dL Normal 7.0-18.0 [facility] Comment on above: Performed By: #### C BC #### [facility] [address] [place] [address] Dr. Navneet Aguilar Urea nitrogen/Creatinin e [Mass ratio] 16.1 mg/mg Normal [facility] Comment on above: Performed By: #### C BC #### [facility] [address] [address] [address] Navneet Aguilar TSHon 01-21-2023 TSH 1.912 uIU/mL Normal 0.358-3.740 [facility] Comment on above: Performed By: #### H GB #### [facility] [address] [place] [address] Dr. Navneet Aguilar URIC ACID SERUMon 01-21-2023 Urate [Mass/Vol] 6.9 mg/dL Normal 3.5-7.2 [facility] Comment on above: Performed By: #### H GB #### [facility] [address] [place] [address] Dr. Navneet Aguilar THEOPHYLLINEon 12-26-2022 THEOPHYLLINE 5.3 ug/mL Critically low 10.0-20.0 [facility] Comment on above: Performed By: #### C BC #### [facility] [address] [place] [address] Dr. Navneet Aguilar LIPID PROFILEon 10-01-2022 CHOL-HDL RATIO NORM SEE BELOW Normal [facility] Comment on above: Result Comment: 3.3 - 4.4 LOW RISK 4.4 - 7.1 AVERAGE RISK 7.1 - 11.0 MODERATE RISK >11.0 HIGH RISK Performed By: #### L IPID, CMP #### [facility] [address] [place] [address] Dr. Navneet Aguilar Cholesterol [Mass/Vol] 92 mg/dL Normal <=200 [facility] Comment on above: Performed By: #### L IPID, CMP #### [facility] [address] [place] [address] Dr. Navneet Aguilar Cholesterol in HDL [Mass/Vol] 40 mg/dL Normal 40-60 [facility] Comment on above: Performed By: #### L IPID, CMP #### [facility] [address] [place] [address] Dr. Navneet Aguilar Cholesterol in LDL [Mass/Vol] 33.2 mg/dL Normal [facility] Comment on above: Performed By: #### L IPID, CMP #### [facility] [address] [address] [address] Navneet Aguilar Cholesterol.total/ Cholesterol in HDL [Mass ratio] 2.3 {ratio} Normal [facility] Comment on above: Performed By: #### L IPID, CMP #### [facility] [address] [address] [address] Navneet Aguilar HDL NORMAL > or = 60 mg/dl - LO W CARDIOVASCULAR RISK <40 mg/dl - HIGH CARDIOVASCULAR RISK Normal [facility] Comment on above: Performed By: #### L IPID, CMP #### [facility] [address] [address] [address] Navneet Aguilar LDL CALC NORMAL SEE BELOW Normal [facility] Comment on above: Result Comment: <100 mg/dl OPTIMAL 100 - 129 mg/dl NEAR OR ABOVE OPTIMAL 130 - 159 mg/dl BORDERLINE HIGH 160 - 189 mg/dl HIGH >190 mg/dl VERY HIGH Performed By: #### L IPID, CMP #### [facility] [address] [address] [address] Navneet Aguilar Triglyceride [Mass/Vol] 94 mg/dL Normal <=150 [facility] Comment on above: Performed By: #### L IPID, CMP #### [facility] [address] [address] [address] Navneet Aguilar VLDL CALC 18.8 mg/dL Normal [facility] Comment on above: Performed By: #### L IPID, CMP #### [facility] [address] [address] [address] Navneet Aguilar PROF 14(COMP METB)on 022 Albumin [Mass/Vol] 3.6 g/dL Normal 3.4-5.0 [facility] Comment on above: Performed By: #### L IPID, CMP #### [facility] [address] [address] [address] Navneet Aguilar Albumin/Globulin [Mass ratio] 1.2 {ratio} Normal [facility] Comment on above: Performed By: #### L IPID, CMP #### [facility] [address] [address] [address] Navneet Aguilar ALP [Catalytic activity/Vol] 45 U/L Critically low 46-116 [facility] Comment on above: Performed By: #### L IPID, CMP #### [facility] [address] [address] [address] Navneet Aguilar ALT [Catalytic activity/Vol] 25 U/L Normal 16-63 [facility] Comment on above: Performed By: #### L IPID, CMP #### [facility] [address] [address] [address] Navneet Aguilar Anion gap [Moles/Vol] 13.5 mmol/L Normal [facility] Comment on above: Performed By: #### L IPID, CMP #### [facility] [address] [address] [address] Navneet Aguilar AST [Catalytic activity/Vol] 37 U/L Normal 15-37 [facility] Comment on above: Performed By: #### L IPID, CMP #### [facility] [address] [address] [address] Navneet Aguilar Bilirubin [Mass/Vol] 0.4 mg/dL Normal 0.2-1.0 [facility] Comment on above: Performed By: #### L IPID, CMP #### [facility] [address] [address] [address] Navneet Aguilar Calcium [Mass/Vol] 8.9 mg/dL Normal 8.5-10.1 [facility] Comment on above: Performed By: #### L IPID, CMP #### [facility] [address] [address] [address] Navneet Aguilar Chloride [Moles/Vol] 109 mmol/L Critically high 98-107 [facility] Comment on above: Performed By: #### L IPID, CMP #### [facility] [address] [address] [address] Navneet Aguilar CO2 [Moles/Vol] 25.3 mmol/L Normal 21.0-32.0 [facility] Comment on above: Performed By: #### L IPID, CMP #### [facility] [address] [address] [address] Navneet Aguilar Creatinine [Mass/Vol] 1.07 mg/dL Normal 0.70-1.30 [facility] Comment on above: Performed By: #### L IPID, CMP #### [facility] [address] [address] [address] Navneet Aguilar EGFR-AF SIERRA LEONEAN >60 Normal >=60 [facility] Comment on above: Performed By: #### L IPID, CMP #### [facility] [address] [address] [address] Navneet Aguilar EGFR-NON AF SIERRA LEONEAN >60 Normal >=60 [facility] Comment on above: Performed By: #### L IPID, CMP #### [facility] [address] [address] [address] Navneet Aguilar Globulin (S) [Mass/Vol] 3.1 g/dL Normal [facility] Comment on above: Performed By: #### L IPID, CMP #### [facility] [address] [address] [address] Navneet Aguilar Glucose [Mass/Vol] 115 mg/dL Critically high 74-106 [facility] Comment on above: Performed By: #### L IPID, CMP #### [facility] [address] [address] [address] Navneet Aguilar Potassium [Moles/Vol] 3.8 mmol/L Normal 3.5-5.1 [facility] Comment on above: Performed By: #### L IPID, CMP #### [facility] [address] [address] [address] Navneet Aguilar Protein [Mass/Vol] 6.7 g/dL Normal 6.4-8.2 [facility] Comment on above: Performed By: #### L IPID, CMP #### [facility] [address] [address] [address] Navneet Aguilar Sodium [Moles/Vol] 144 mmol/L Normal 136-145 [facility] Comment on above: Performed By: #### L IPID, CMP #### [facility] [address] [address] [address] Navneet Aguilar Urea nitrogen [Mass/Vol] 21.0 mg/dL Critically high 7.0-18.0 [facility] Comment on above: Performed By: #### L IPID, CMP #### [facility] [address] [address] [address] Navneet Aguilar Urea nitrogen/Creatinin e [Mass ratio] 19.6 mg/mg Normal [facility] Comment on above: Performed By: #### L IPID, CMP #### [facility] [address] [address] [address] Navneet Aguilar ASPERGILLUS AB, QUANTITATIVE DIDon 07-08-2022 Aspergillus flavus Negative Normal Neg:<1:1 [facility] Comment on above: Performed By: #### C BC #### [facility] [address] [place] [address] Dr. Navneet Aguilar Aspergillus fumigatus Negative Normal Neg:<1:1 [facility] Comment on above: Performed By: #### C BC #### [facility] [address] [place] [address] Dr. Navneet Aguilar Aspergillus niger Negative Normal Neg:<1:1 [facility] Comment on above: Performed By: #### C BC #### [facility] [address] [place] [address] Dr. Navneet Aguilar IMMUNOGLOBULIN E, TOTALon Immunoglobulin E, Total 102 IU/mL Normal 6-495 [facility] Comment on above: Performed By: #### C BC #### [facility] [address] [place] [address] Dr. Navneet Aguilar ANTI NEUTROPHIL CYTOPLASMIC AB (ANCA) PRon 07-05-2022 Anti-MPO Antibodies <0.2 Normal 0.0-0.9 [facility] Comment on above: Result Comment: Perf ormed at: BN Performed By: #### H GB #### [facility] [address] [place] [address] Dr. Navneet Aguilar Anti-PR3 Antibodies <0.2 Normal 0.0-0.9 [facility] Comment on above: Result Comment: Perf ormed at: BN Performed By: #### H GB #### [facility] [address] [place] [address] Dr. Navneet Aguilar Atypical pANCA <1:20 Normal Neg:<1:20 [facility] Comment on above: Result Comment: The atypical pANCA pattern has been observed in a significant percentage of patients with ulcerative colitis, primary sclerosing cholangitis and autoimmune hepatitis. Performed at: CB Performed By: #### H GB #### [facility] [address] [place] [address] Dr. Navneet Aguilar Cytoplasmic (C-ANCA) <1:20 Normal Neg:<1:20 [facility] Comment on above: Result Comment: Perf ormed at: CB Performed By: #### H GB #### [facility] [address] [place] [address] Dr. Navneet Aguilar Perinuclear (P-ANCA) <1:20 Normal Neg:<1:20 [facility] Comment on above: Result Comment: The presence of positive fluorescence exhibiting P-ANCA or C-ANCA patterns alone is not specific for the diagnosis of [place]'s Granulomatosis (WG) or microscopic polyangiitis. Decisions about treatment should not be based solely on ANCA IFA results. The [employer] ANCA [employer] Consensus recommends follow up testing of positive sera with both MD-3 and MPO-ANCA enzyme immunoassays. As many as 5% serum samples are positive only by EIA. Ref. AM J Clin Pathol 1999;111:507-513. Performed at: CB Performed By: #### H GB #### [facility] [address] [place] [address] Dr. Navneet Aguilar CBC AUTO DIFFon 06-30-2022 BASO # 0.0 103/ul Normal 0.0-0.1 [facility] Comment on above: Performed By: #### C BC #### [facility] [address] [place] [address] Dr. Navneet Aguilar Basophils/100 WBC (Bld) 0.7 % Normal 0.2-2.0 [facility] Comment on above: Performed By: #### C BC #### [facility] [address] [place] [address] Dr. Navneet Aguilar EO # 0.1 103/ul Normal 0.0-0.7 [facility] Comment on above: Performed By: #### C BC #### [facility] [address] [place] [address] Dr. Navneet Aguilar Eosinophils/100 WBC (Bld) 1.9 % Normal 0.9-7.0 [facility] Comment on above: Performed By: #### C BC #### [facility] [address] [place] [address] Dr. Navneet Aguilar Erythrocyte distribution width (RBC) [Ratio] 12.5 % Normal 11.0-15.0 [facility] Comment on above: Performed By: #### C BC #### [facility] [address] [place] [address] Dr. Navneet Aguilar Hematocrit (Bld) [Volume fraction] 38.6 % Critically low 42.0-54.0 [facility] Comment on above: Performed By: #### C BC #### [facility] [address] [place] [address] Dr. Navneet Aguilar Hemoglobin (Bld) [Mass/Vol] 12.9 g/dL Critically low 14.0-18.0 [facility] Comment on above: Performed By: #### C BC #### [facility] [address] [place] [address] Dr. Navneet Aguilar IG # 0.01 10e3/ul Normal 0.00-0.03 [facility] Comment on above: Performed By: #### C BC #### [facility] [address] [place] [address] Dr. Navneet Aguilar IG % 0.2 % Normal 0.0-0.5 [facility] Comment on above: Performed By: #### C BC #### [facility] [address] [place] [address] Dr. Navneet Aguilar LYMPH # 2.4 103/ul Normal 1.2-3.8 [facility] Comment on above: Performed By: #### C BC #### [facility] [address] [place] [address] Dr. Navneet Aguilar Lymphocytes/100 WBC (Bld) 41.7 % Normal 20.5-60.0 [facility] Comment on above: Performed By: #### C BC #### [facility] [address] [place] [address] Dr. Navneet Aguilar MANUAL DIFF REQ NO Normal [facility] Comment on above: Performed By: #### C BC #### [facility] [address] [place] [address] Dr. Navneet Aguilar MCH (RBC) [Entitic mass] 29.8 pg Normal 25.9-34.0 [facility] Comment on above: Performed By: #### C BC #### [facility] [address] [place] [address] Dr. Navneet Aguilar MCHC (RBC) [Mass/Vol] 33.4 g/dL Normal 29.9-35.2 [facility] Comment on above: Performed By: #### C BC #### [facility] [address] [place] [address] Dr. Navneet Aguilar MCV (RBC) [Entitic vol] 89.1 fL Normal 80.0-94.0 [facility] Comment on above: Performed By: #### C BC #### [facility] [address] [place] [address] Dr. Navneet Aguilar MONO # 0.6 103/ul Normal 0.3-0.8 [facility] Comment on above: Performed By: #### C BC #### [facility] [address] [place] [address] Dr. Navneet Aguilar Monocytes/100 WBC (Bld) 10.5 % Normal 1.7-12.0 [facility] Comment on above: Performed By: #### C BC #### [facility] [address] [place] [address] Dr. Navneet Aguilar NEUT # 2.6 103/ul Normal 1.4-6.5 [facility] Comment on above: Performed By: #### C BC #### [facility] [address] [place] [address] Dr. Navneet Aguilar Neutrophils/100 WBC (Bld) 45.0 % Normal 43.0-75.0 [facility] Comment on above: Performed By: #### C BC #### [facility] [address] [place] [address] Dr. Navneet Aguilar Platelet mean volume (Bld) [Entitic vol] 10.1 fL Normal 9.5-13.5 [facility] Comment on above: Performed By: #### C BC #### [facility] [address] [place] [address] Dr. Navneet Aguilar PLT 296 103/ul Normal 150-450 [facility] Comment on above: Performed By: #### C BC #### [facility] [address] [place] [address] Dr. Navneet Aguilar RBC 4.33 106/ul Critically low 4.70-6.10 [facility] Comment on above: Performed By: #### C BC #### [facility] [address] [place] [address] Dr. Navneet Aguilar WBC 5.8 103/ul Normal 4.0-11.0 [facility] Comment on above: Performed By: #### C BC #### [facility] [address] [place] [address] Dr. Navneet Aguilar PROF CHEM 8 (BAS METB)on Anion gap [Moles/Vol] 13.2 mmol/L Normal [facility] Comment on above: Performed By: #### B MP #### [facility] [address] [place] [address] Dr. Navneet Aguilar Calcium [Mass/Vol] 9.1 mg/dL Normal 8.5-10.1 [facility] Comment on above: Performed By: #### B MP #### [facility] [address] [place] [address] Dr. Navneet Aguilar Chloride [Moles/Vol] 106 mmol/L Normal 98-107 [facility] Comment on above: Performed By: #### B MP #### [facility] [address] [place] [address] Dr. Navneet Aguilar CO2 [Moles/Vol] 23.7 mmol/L Normal 21.0-32.0 [facility] Comment on above: Performed By: #### B MP #### [facility] [address] [address] [address] Navneet Aguilar Creatinine [Mass/Vol] 1.06 mg/dL Normal 0.70-1.30 [facility] Comment on above: Performed By: #### B MP #### [facility] [address] [address] [address] Navneet Aguilar EGFR-AF SIERRA LEONEAN >60 Normal >=60 [facility] Comment on above: Performed By: #### B MP #### [facility] [address] [address] [address] Navneet Aguilar EGFR-NON AF SIERRA LEONEAN >60 Normal >=60 [facility] Comment on above: Performed By: #### B MP #### [facility] [address] [address] [address] Navneet Aguilar Glucose [Mass/Vol] 94 mg/dL Normal 74-106 [facility] Comment on above: Performed By: #### B MP #### [facility] [address] [address] [address] Navneet Aguilar Potassium [Moles/Vol] 3.9 mmol/L Normal 3.5-5.1 [facility] Comment on above: Performed By: #### B MP #### [facility] [address] [address] [address] Navneet Aguilar Sodium [Moles/Vol] 139 mmol/L Normal 136-145 [facility] Comment on above: Performed By: #### B MP #### [facility] [address] [address] [address] Navneet Aguilar Urea nitrogen [Mass/Vol] 17.0 mg/dL Normal 7.0-18.0 [facility] Comment on above: Performed By: #### B MP #### [facility] [address] [address] [address] Navneet Aguilar Urea nitrogen/Creatinin e [Mass ratio] 16.0 mg/mg Normal [facility] Comment on above: Performed By: #### B #### [facility] [address] [address] [address] Navneet Aguilar XR CHEST 2 Von [...] by: MICKY MORENO Date: 2022-05-30 10:52 Normal [facility] ECHOCARDIO M/2D COMPLETEon 0 04-18-2022 ECHOCARDIO M/2D COMPLETE Patient: PARAS GRIGSBY Exam Date: 04/18/2022 : 1965 Gender:M Ordering : DR LAMBERT JOSE . Admission #: [id number] Family : Order #: [id number] CLICK HERE TO VIEW EXAM ECHOCARDIOGRAM REPORT [...] Area(A4C): 16.30 cm2 Left Atrium Systolic Volume(A2C): 57561 mm3 Left Atrium Systolic Volume(A4C): 66664 mm3 Mitral Valve MV E to A [...] Rivas M.D. on 04/19/2022 at 18:16 Normal [facility] CTA CHEST WO W CONon 022 [...] by: PADMINI WHITE Date: 2022-04-11 07:16 Normal [facility] HEMOGLOBINon 03-24-2022 Hemoglobin (Bld) [Mass/Vol] 13.2 g/dL Critically low 14.0-18.0 [facility] Comment on above: Performed By: #### H GB #### [facility] [address] [place] [address] Dr. Navneet Aguilar Vital Signs Date Time Vital Sign Value Performing Clinician Facility 04-30-2025 16:14-0400 Body height 170.2 cm Angel Alcaraz DPM Work Phone: [facility] 04-30-2025 16:14-0400 Body mass index (BMI) [Ratio] 40.41 kg/m2 Angel Alcaraz DPM Work Phone: [facility] 04-30-2025 16:14-0400 Body weight 117.03 kg Angel LUCIANOM Work Phone: [facility] 01-30-2025 15:57-0400 Body mass index (BMI) [Ratio] 40.41 kg/m2 Debora Dunham MD Work Phone: [facility] 01-30-2025 15:57-0400 Body weight 117.03 kg Debora Dunham MD Work Phone: [facility] 11-20-2024 13:32-0500 Body height 170.2 cm Giovanny Tatum PA Work Phone: [facility] 11-20-2024 13:32-0500 Body mass index (BMI) [Ratio] 37.59 kg/m2 Giovanny Tatum PA Work Phone: [facility] 11-20-2024 13:32-0500 Body weight 108.86 kg Giovanny Tatum PA Work Phone: [facility] 07-15-2024 15:18-0400 Body mass index (BMI) [Ratio] 40.25 kg/m2 Debora Dunham MD Work Phone: [facility] 07-15-2024 15:18-0400 Body weight 116.57 kg Debora Dunham MD Work Phone: [facility] 02-23-2023 16:25-0400 Body height 170.18 cm Yasmine Joaquin Other [facility] Other 02-23-2023 16:25-0400 Body mass index (BMI) [Ratio] 40.72 kg/m2 Yasmine Joaquin Other [facility] Other 02-23-2023 16:25-0400 Body temperature 98.8 [degF] Yasmine Joaquin Other [facility] Other 02-23-2023 16:25-0400 Body weight 117.94 kg Yasmine Joaquin Other [facility] Other 02-23-2023 16:25-0400 Diastolic blood pressure 70 mm[Hg] Yasmine Joaquin Other [facility] Other 02-23-2023 16:25-0400 Respiratory rate 18 /min Yasmine Joaquin Other [facility] Other 02-23-2023 16:25-0400 SaO2% (BldA) [Mass fraction] 97 % Yasmine Joaquin Other [facility] Other 02-23-2023 16:25-0400 Systolic blood pressure 131 mm[Hg] Yasmine Joaquin Other [facility] Other 02-17-2023 10:10-0400 Body height 170.18 cm Emma Oropezamond Other [facility] Other 02-17-2023 10:10-0400 Body mass index (BMI) [Ratio] 40.72 kg/m2 Emma Oropezamond Other [facility] Other 02-17-2023 10:10-0400 Body temperature 97.7 [degF] Emma Oropezamond Other [facility] Other 02-17-2023 10:10-0400 Body weight 117.94 kg Emma Oropezamond Other [facility] Other 02-17-2023 10:10-0400 Respiratory rate 18 /min Emma Oropezamond Other [facility] Other 02-17-2023 10:10-0400 SaO2% (BldA) [Mass fraction] 94 % Emma Oropezamond Other [facility] Other 02-15-2022 18:45-0400 Body height 170.18 cm Dimple Milligan Other [facility] Other 02-15-2022 18:45-0400 Body mass index (BMI) [Ratio] 39.46 kg/m2 Dimple Milligan Other [facility] Other 02-15-2022 18:45-0400 Body temperature 98.2 [degF] Dimple Milligan Other [facility] Other 02-15-2022 18:45-0400 Body weight 114.31 kg Dimple Milligan Other [facility] Other 02-15-2022 18:45-0400 Diastolic blood pressure 93 mm[Hg] Dimple Milligan Other [facility] Other 02-15-2022 18:45-0400 Respiratory rate 18 /min Dimple Milligan Other [facility] Other 02-15-2022 18:45-0400 SaO2% (BldA) [Mass fraction] 96 % Dimple Milligan Other [facility] Other 02-15-2022 18:45-0400 Systolic blood pressure 158 mm[Hg] Dimple Milligan Other [facility] Other Encounters Encounter Date Encounter Type Care Provider Facility Start: 08-04-2025 End: 08-04-2025 Office outpatient visit 25 minutes [facility] Comment on above: Chronic bronchitis, unspecified chronic bronchitis type (HCC) (Primary Dx); Chronic rhinitis Start: 08-04-2025 End: 08-04-2025 ambulatory DEBORA DUNHAM Not Available Start: 08-04-2025 End: 08-04-2025 Bamboo flowsheet Debora Dunham MD Work Phone: [facility] Start: 08-04-2025 End: 08-04-2025 Bamboo flowsemily Dunham MD Work Phone: [facility] Start: 07-16-2025 End: 07-16-2025 ambulatory Lee HALE Facility:[facility] Start: 07-16-2025 End: 07-16-2025 Patient encounter procedure Lee HALE [facility] Start: 07-10-2025 End: 07-10-2025 ambulatory [facility] Start: 06-12-2025 End: 06-12-2025 ambulatory [facility] Start: 06-05-2025 End: 06-06-2025 ambulatory [facility] Start: 04-30-2025 End: 04-30-2025 Office outpatient visit 15 minutes Angel Alcaraz DPM Work Phone: [facility] Comment on above: Onychodystrophy (Carolyn veronica Dx); Onychomycosis Start: 04-30-2025 End: 04-30-2025 ambulatory ANGEL ALCARAZ Not Available Start: 04-30-2025 End: 04-30-2025 Bamboo flowsheet Angel Alcaraz DPM Work Phone: [facility] Start: 04-30-2025 End: 04-30-2025 Bamboo flowsheet Angel Alcaraz DPM Work Phone: [facility] Start: 04-18-2025 End: 04-18-2025 ambulatory DAM[facility] Start: 01-30-2025 End: 01-30-2025 Office outpatient visit [...] End: 12-06-2024 Bamboo flowsheet Jr. Heraclio Beach Stepmarshall DO Work Phone: [facility] [...] Not Available Start: 10-07-2024 End: 10-07-2024 ambulatory AB [facility] Start: 07-15-2024 End: 07-15-2024 Office outpatient visit 15 minutes Debora Dunham MD Work Phone: [facility] Comment on above: Severe persistent as thma with (acute) exacerbation (CMS/HCC) (Primary Dx) Start: 07-15-2024 End: 07-15-2024 Bamboo flowsheet Debora Dunham MD Work Phone: [facility] Start: 07-15-2024 End: 07-15-2024 Bamboo flowsheet Debora Dunham MD Work Phone: [facility] Start: 03-15-2023 End: 03-16-2023 ambulatory [facility] Facility:[facility] Start: 02-25-2023 End: 02-25-2023 ambulatory ANABELLE AGGARWAL . Facility:[facility] Start: 02-23-2023 End: 02-23-2023 ambulatory Yasmine Joaquin Other [facility] Other Start: 02-23-2023 Office outpatient vi sit 15 minutes Yasmine Joaquin [facility] Start: 02-17-2023 End: 02-17-2023 ambulatory Emma Guerrero Other [facility] Other Start: 02-17-2023 Office outpatient vi sit 15 minutes Emma Guerrero [facility] Start: 01-28-2023 Encounter for genera l adult medical examination without abnormal findings DR LAMBERT JOSE . [facility] Start: 01-21-2023 End: 01-22-[address] LAMBERT JOSE . Facility:[facility] Start: 01-21-2023 End: 01-22-2023 Encounter for general adult medical examination without abnormal findings DR LAMBERT JOSE . Facility:[facility] Start: 12-26-2022 End: 12-27-2022 ambulatory [facility] Facility:[facility] Start: 10-01-2022 End: 10-02-[address] [...] 02-15-2022 End: 02-15-2022 ambulatory Dimple Milligan Other [facility] Other Start: 02-15-2022 Office outpatient vi sit 15 minutes Dimple Milligan [facility] Procedures Date Procedure Procedure Detail Performing Clinician Start: 11-20-2024 Radiologic examination knee 1/2 views Giovanny SALDIVAR Work Phone: Start: 01-21-2023 PSA screening MARYURI HADDAD Comment on above: Performed By: #### PSASC #### [facility] [address] [place] [address] Dr. Navneet Aguilar Start: 08-03-2022 History of placement of stent for coronary artery disease History of coronary artery stent placement Jr. Stepanic DO Work Phone: Start: 04-26-2017 Colonoscopy Lee HALE Start: 04-26-2017 Esophagogastroduodenoscopy Lee HALE Extracorporeal shock wave lithotripsy of calculus of kidney Lee HALE Repair of meniscus Lee PATEL Repair of musculoten dinous cuff of shoulder Lee HALE Repair of umbilical hernia Isaías HALE Tonsillectomy Lee HALE Plan of Treatment Date Care Activity Detail Author Start: 08-04-2025 End: 08-04-2025 Patient encounter procedure [facility] Comment on above: Arrived Start: 07-07-2025 Influenza vaccination [facility] Start: 04-30-2025 End: 04-30-2025 Patient encounter procedure 04/30/2025 4:15 PM EDT Office Visit [facility] [address] [place] [phone] Angel Alcaraz, DPM [address] [place], [place] [id number] Arrived [facility] Comment on above: Arrived Start: 01-30-2025 End: 01-30-2025 Patient encounter procedure [facility] Comment on above: Arrived Start: 12-31-2024 End: 12-31-2024 Patient encounter procedure 12/31/2024 11:30 AM EST Office Visit [facility] [address] [place] [phone] Jr. Heraclio Doshi, DO [address] [facility] [address] [place] [address] [facility] Start: 12-06-2024 End: 12-06-2024 Patient encounter procedure [facility] Comment on above: Acute pain of left k nee (Primary Dx); Acute medial meniscus tear of left knee, initial encounter Start: 11-20-2024 End: 11-20-2025 MR Knee - left WO contrast MR knee left wo IV contrast Imaging Routine Internal derangement of left knee Expected: 11/20/2024 (Approximate), Expires: 11/20/2025 [facility] Work Phone: Comment on above: Expected: 11/20/2024 (Approximate), Expires: 11/20/2025 Start: 11-20-2024 End: 11-20-2024 Patient encounter procedure 11/20/2024 1:30 PM EST Office Visit [facility] [address] [place] [phone] Giovanny Tatum PA [address] [facility] [address] [place] [address] Acute pain of left knee (Primary Dx) [facility] Comment on above: Acute pain of left k nee (Primary Dx) Start: 07-15-2024 End: 07-15-2024 Patient encounter procedure 07/15/2024 3:20 PM EDT Office Visit [facility] [address] [facility] [address] [place] [address] Debora Dunham MD [address] [facility] [address] [place] [address] Arrived [facility] Comment on above: Arrived Start: 07-07-2024 Influenza vaccination Influenza Vacc ine (#1) [facility] Start: 1965 Screening for malignant neoplasm of colon [facility] Immunizations Immunization Date Immunization Notes Care Provider Fa cility 10-25-2021 SARS-CoV-2 (COVID-19 ) mRNA-1273 vaccine Lee HALE [facility] 02-16-2021 SARS-CoV-2 (COVID-19 ) mRNA-1273 vaccine Lee NILL [facility] Comment on above: Result Comment: 2024: 48 01-19-2021 SARS-CoV-2 (COVID-19 ) mRNA-1273 vaccine Lee NILL [facility] NEGATED: Highlighted row has not occurred!09-18-2019 influenza virus vaccine, unspecified formulation Lee HALE [facility] Payers Date Payer Category Payer Private Health Insurance [id number] 2022 Unknown [employer] [id number] 2022-Present [address] [place] [address] [id number] 1965 Unknown [id number] 2.16.840.1.307765.3.579.2.5 93 1965 Unknown [id number] 2.16.840.1.125737.3.579.2.5 93 1965 Unknown [id number] 2.16.840.1.316534.3.579.2.5 1965 Unknown [id number] 2.16.840.1.974485.3.579.2.5 93 1965 Unknown [id number] 2.16.840.1.230748.3.579.2.5 93 1965 Unknown [id number] 2.16.840.1.216096.3.579.2.5 93 1965 Unknown [id number] 2.16.840.1.880897.3.579.2.5 1965 Unknown [id number] 2.16.840.1.572159.3.579.2.5 93 1965 Unknown [id number] 2.16.840.1.313469.3.579.2.5 1965 Unknown [id number] 2.16.840.1.832730.3.579.2.5 1965 Unknown [id number] 2.16.840.1.170494.3.579.2.5 1965 Unknown [id number] 2.16.840.1.031948.3.579.2.5 93 1965 Unknown [id number] 2.16.840.1.135583.3.579.2.5 93 1965 Unknown [id number] 2.16.840.1.383368.3.579.2.7 27 1965 Unknown [id number] 2.16.840.1.316572.3.579.2.1 259 1965 Unknown [id number] 2.16.840.1.901311.3.579.2.1 259 1965 Unknown [id number] 2.16.840.1.517688.3.579.2.1 259 1965 Unknown [id number] 2.16.840.1.906452.3.579.2.1 259 1963 Unknown [id number] 2.16.840.1.777636.3.579.2.1 259 1965 Unknown [id number] 2.16.840.1.282455.3.579.2.1 259 1965 Unknown [id number] 1961 Unknown [id number] Social History Date Type Detail Facility Start: 03-28-2024 End: 08-04-2025 Sex Assigned At [facility] Start: 02-14-2024 End: 04-30-2025 Tobacco smoking status [facility] Ex-smoker [facility] Start: 12-11-1986 End: 10-27-2011 History of tobacco use Current smoker [facility] Start: 12-11-1986 End: 10-27-2011 History of tobacco use Cigarette Smoker [facility] Start: 02-14-2024 End: 04-30-2025 Tobacco use and exposure Former smokeless tobacco user [facility] End: 12-11-1994 History of tobacco use Snuff User [facility] Start: 07-15-2024 End: 08-04-2025 Alcoholic beverage intake Ex-drinker (finding) [facility] Start: 03-28-2024 End: 08-04-2025 History of Social function [facility] Start: 06-12-2023 Alcohol Comment Caffeine intak e: >4 cups per day [facility] Start: 1965 Sex assigned at Male [facility] Start: 06-05-2023 Gender identity Identifies as male gender (finding) [facility] Tobacco smoking status Never [facility] Sexual Orientation [facility] Start: 11-15-2017 Sex Male (finding) [facility] Medical Equipment Procedure Code Equipment Code Equipment Origin al Text Equipment Identifier Dates HERNIA REPAIR, R OBOT DERICK HALE MD, Lee Wagner 10/07/19 Non Biological Abdomen [id number] FDA Start: 10-07-2019 Clinical Notes 02-15-2022 to 08-04-2025 Debora Dunham MD - 08/04/2025 4:00 PM Lien Alcaraz DPM - 04/30/2025 4:15 PM Uziel Dunham MD - 01/30/2025 4:00 PM EDTJr. Heraclio Doshi, - 12/06/2024 8:15 AM EST Note Date & Type Note Facility 08-04-2025 History of Present illness Narrative Paras Grigsby returns to the office today. Urticaria control test today is 14. He had a heart cath that was normal in June. He is off all of his medications at the current time and feels that all of his medications were not helpful for SOB at all. He feels his sinus symptoms are notable for nasal airway obstruction at night and in the AM. He had ear tubes in the past but has never had pneumonia. Dupixent lisinopril Atarax Skin testing negative EXAM [...] options at length in the office but he would prefer to defer on this at the current time. Follow-up was arranged in the allergy clinic on an as needed basis. I did suggest he try and walk on a regular basis. Follow-up with Dr. Haddad in 2-3 months. documented in this encounter [facility] 07-16-2025 Note General Surgery Offi ce/Clinic Note Chief Complaint consultation for anemia HPI Staff 59 year old male presents on consultation from Dr. Jose for anemia. Labs completed 06/10 with H/H 11.4 and 34.2. Reports occasional SOB, dizziness, lightheadedness and fatigue. Denies abdominal or rectal pain. No rectal bleeding or change in bowel habits. Denies nausea, vomiting or weight loss. Patient has been on Ferrous Sulfate 325mg BID for 6-12 months. Taking Plavix. Last colonoscopy completed 04/2017- hyperplastic polyp. EGD completed 04/2017 with Walker's esophagus. No known family history of colon cancer. History of Present Illness 59 yo male with h/o htn, CAD, COPD, asthma, hypertriglyceridemia, hypothyroidism, KAMERON, pulmonary htn, Walker's esophagus, essential tremor, referred for anemia; found to have anemia 06/10/25, h/h 11.4/34.2; has been on oral iron since that time; denies change in bms or blood in stools, no melena; no abd complaints; no dysphagia or early satiety; on baby asa, Plavix and Diclofenac daily; abd operations significant for robotic-assisted umbilical hernia repair with mesh; last EGD/colonoscopy in 2016, with removal of hyperplastic polyp and evidence of Walker's esophagus; former smoker; no fmhx of GI malignancy or IBD. Review of Systems PHQ Score Initial Depression Screen Score: 0 SCORE ROS - Provider Constitutional: no fever, no sweats, no weight loss. Eyes: no glasses, no blurred vision, no visual loss. ENMT: no dentures, no hoarseness, no swallowing difficulties, no hearing loss, no ear infection(s), no nose bleeds. Cardiovascular: normal blood pressure, no chest pain, regular heartbeat, no heart murmur. Respiratory: no shortness of breath, no cough, no asthma, no wheezing. Gastrointestinal: no nausea, no vomiting, no diarrhea, no constipation, no blood in stool, no change in bowel habits, no abdominal pain, no hepatitis. Genitourinary: no kidney stones, no urine infection, no dysuria. Musculoskeletal: no pain, no weakness. Skin: no changing moles, no rash, no skin lumps. Neurologic: no seizures, no epilepsy, no headache. Psychiatric: no emotional or psychiatric problem. Heme/Lymph: no bleeding problems, no anemia, no blood clots, no transfusions. Allergy/Immunologic: no swollen lymph nodes/glands, no IV drug abuse. Other: Additional ROS info: Except as noted in the above Review of Systems and in the History of Present Illness, all other systems have been reviewed and are negative or noncontributory. Physical Exam Vitals & Measurements HR: 76(Peripheral) RR: 16 BP: 138/80 HT: 170 cm HT: 67 in WT: 113.2 kg WT: 249.563 lb BMI: 39.17 Respiratory: lungs CTA, respirations non labored. Cardiovascular: regular rate and rhythm, no murmur, no pedal edema or varicosities. Gastrointestinal: obese, soft, non distended, no tenderness, no masses, no palpable hernias, diastasis recti yes, no hepatosplenomegaly; normal bs Musculoskeletal: normal gait, digits and nails without infection, nodes, cyanosis, clubbing. Skin: no rashes, no lesions, no ulcers, no subcutaneous nodules, induration. Psychiatric/Neuro: oriented to time, place, person, judgement normal, affect appropriate for age, insight intact, no focal deficits. Tests: labs reviewed, review of old records completed , Discussed surgical options, risks, and possible complications with patient. Assessment/Plan 1. Chronic GERD (K21.9: Gastro-esophageal reflux disease without esophagitis) plan EGD and colonoscopy under anesthesia for further evaluation; informed consent obtained. 2. Barretts esophagus (K22.70: Walker's esophagus without dysplasia) see # 1 3. Anemia (D64.9: Anemia, unspecified) see # 1 Follow-up No qualifying data available Problem List/Past Medical History Ongoing Anemia Asthma Barretts esophagus BMI 39.0-39.9,adult CAD (coronary artery disease) Chronic GERD Chronic obstructive pulmonary disease Class 3 obesity Essential tremor Hypertension Hypertensive retinopathy Hypertriglyceridemia Hypogonadism male Hypothyroidism KAMERON (obstructive sleep apnea) Pulmonary hypertension Historical Kidney stone Umbilical hernia Procedure/Surgical History Colonoscopy (04/26/2017), EGD - esophagogastroduodenoscopy (04/26/2017), ESWL of kidney, Repair of meniscus, Repair of umbilical hernia, Rotator cuff repair, Tonsillectomy. Medications aspirin 81 mg Oral EC Tab, 81 mg= 1 tab(s), Oral, Daily atorvastatin 80 mg Tab, 80 mg= 1 tab(s), Oral, Daily Cardura 4 mg Tab, 4 mg= 1 tab(s), Oral, Daily carvedilol 12.5 mg Tab, 12.5 mg= 1 tab(s), Oral, BID Cytomel 25 mcg Tab, 25 mcg= 1 tab(s), Oral, Daily diclofenac sodium 75 mg Oral EC Tab, 75 mg= 1 tab(s), Oral, BID fenofibrate 145 mg Tab, 145 mg= 1 tab(s), Oral, Daily ferrous sulfate 325 mg Tab, 325 mg= 1 tab(s), Oral, BID Lasix 20 mg Tab, 10 mg= 0.5 tab(s), Oral, Daily lisinopril 20 mg Tab, 20 mg= 1 tab(s), Oral, Daily Plavix 75 mg Tab, 75 mg= 1 tab(s), O (more content not included)... [facility] Comment on above: Result Comment: Elec tronically Signed By: ALEXIA LEWIS, Lee Wagner\ankur\Date and Time Signed: 07/16/25 16:22 EDT 07-10-2025 Note Cardiovascular Medic [facility] SUBJECTIVE Chief Complaint Patient presents with Coronary Artery Disease Hypertension 1 month follow up S/P right/left heart cath Echo done 3 weeks ago at [facility] Stent placement 2021 Stent placement 2021 Shortness of Breath SOB and VILLAVICENCIO Paras Grigsby is a 59 y.o. male here for follow-up. Coronary Artery Disease Symptoms include shortness of breath. Hypertension Associated symptoms include shortness of breath. Shortness of Breath His past medical history is significant for CAD. PMHx: hypertension, CAD s/p PCI Lcx 2021, and hyperlipidemia COPD, asthma 04/30/2024 He is having continued SOB. He [...] and chest pain with exertion. 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 Chest pain is left sided, non radiating, 5-6/10. Resting improves the pain and dyspnea. Denies any palpitations. He has some dizziness. He was experiencing some low BP's, dr. Jose reduced his coreg to 12.5mg BID. BP at home runing 100-120/60s 07/10/2025 Since last seen he underwent a heart cath which found stable CAD. We reviewed findings. He has also had an ECHO. We reviewed findings. His VILLAVICENCIO is unchanged. Chest pain is less often. He is seeing pulmonary and project manager finance soon. Denies c/o orthopnea, PND, LE edema, dizziness/LH, palpitations, syncope. Patient Active Problem List Diagnosis Chest pain CAD in [place] artery Essential hypertension COPD (chronic obstructive pulmonary disease) ([facility]) S/P drug eluting coronary stent placement Hyperplastic [...] date: 1981 Quit date: 2011 Years since quittin.7 Passive exposure: Past Smokeless tobacco: Former Quit date: 2001 Substance Use Topics Alcohol use: Not Currently Drug use: Never No Known Allergies OBJECTIVE Visit Vitals BP 131/73 (BP Location: Left arm, Patient Position: Sitting) Pulse 64 Ht 1.702 m (5' 7 ) Wt 112 kg (246 lb) SpO2 96% BMI 38.53 kg/m??? Smoking Status Former BSA 2.3 m??? [...] THE MORNING, Disp: 90 tablet, Rfl: 3 liothyronine (Cytomel) 5 mcg tablet, Take 15 mcg by mouth in the morning., Disp: , Rfl: lisinopril 20 mg tablet, Take 1 tablet (20 mg) by mouth in the morning., Disp: 90 tablet, Rfl: 3 sildenafil (Viagra) 100 mg tablet, T (more content not included)... [facility] 06-26-2025 Note No significant aguilar es on his ECHO to explain his dyspnea. Recommend he see pulmonary. Will he see someone in [place]? [facility] 06-12-2025 Note Patient: Paras rees Pre-sedation Evaluation: [...] 10/07/2024 Severe persistent asthma with acute exacerbation ([facility]) 11/23/2023 Essential hypertension 08/04/2022 COPD (chronic obstructive pulmonary disease) ([facility]) 08/04/2022 S/P drug eluting coronary stent placement 08/04/2022 CAD in [place] artery 08/03/2022 Dyspnea 06/07/2022 Shortness of breath 11/22/2018 Hyperplastic polyp of intestine 05/03/2017 VILLAVICENCIO (dyspnea on exertion) 06/06/2025 Chest pain 07/14/2022 Allergies: Allergies[2] GEOMORPHOLOGIST/Current Medications: Prescriptions Prior to Admission[3] Current Medications[4] [...] and agreed to proceed. Barbara Abrams PGY-4 Clinical Analyst [facility] [1] Past Medical History: Diagnosis Date [...] No current facility-administered medications for this encounter. [facility] 06-05-2025 Note Patient here c/o SOB . [...] All other systems reviewed and are negative. [facility] 06-05-2025 Note Cardiovascular Medic [facility] SUBJECTIVE Chief Complaint Patient [...] and chest pain with exertion. 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 [facility] 04-30-2025 History of Present illness Narrative Images [...] History Past Medical History: Diagnosis Date Asthma ([facility]) 2021 COPD (chronic obstructive pulmonary disease) ([facility]) 2021 History of medical problems 2012 precancerous [...] Angel Alcaraz DPM documented in this encounter [facility] 04-18-2025 Note Patient here today f or a 6 month. Patient states he been sick with the URI x1 week. Patient taking ATB. Patient state he still has VILLAVICENCIO, lightheaded. Review of Systems Cardiovascular: Positive for dyspnea on exertion. Neurological: Positive for light-headedness. [facility] 04-18-2025 Note SUBJECTIVE Reason for Visit: Paras [...] Rate 08/03/2022 53 Atrial Rate 08/03/2022 53 MD Interval 08/03/2022 164 QRS DURATION 08/03/2022 100 QT Interval 08/03/2022 424 QTC CALCULATION(BAZETT) 08/03/2022 397 P [place] 08/03/2022 39 R-[place] 08/03/2022 -7 T Wave [place] 08/03/2022 51 Auto WBC 08/03/2022 4.48 RBC [...] Rate 08/03/2022 50 Atrial Rate 08/03/2022 50 MD Interval 08/03/2022 170 QRS DURATION 08/03/2022 104 QT Interval 08/03/2022 436 QTC CALCULATION(BAZETT) 08/03/2022 397 P [place] 08/03/2022 50 R-[place] 08/03/2022 4 T (more content not included)... [facility] 01-30-2025 History of Present illness Narrative Paras [...] should problems arise. documented in this encounter [facility] 12-06-2024 History of Present illness Narrative Images from the original note were not included. HISTORY OF PRESENT ILLNESS: EST PT Paras Grigsby is an 59 y.o. @ male. (EST PT-PREVIOUSLY SAW ROSENDO TATUM ON 11/20/24) RECHECK LT KNEE PAIN ~2 MONTHS. PT FELT A POP IN KNEE- PT STATES PAIN IS IMPROVING. HERE FOR MRI RESULTS, DONE ON 11/27/24 AT [facility]. PT IS ON PLAVIX XRAY LT KNEE 11/20/24 EPIC MRI LT KNEE 11/27/24 EPIC ([facility]) NO CORTISONE INJ NO MDP/PREDNISONE [...] of said treatment. documented in this encounter [facility] 11-20-2024 History of Present illness [...] HISTORY: Past Medical History: Diagnosis Date Asthma ([facility]) 2021 COPD (chronic obstructive pulmonary disease) ([facility]) 2021 History of medical problems 2012 precancerous throat polyps Hyperlipidemia ([facility]) Hypertension ([facility]) PAST SURGICAL HISTORY: Past Surgical History: Procedure [...] requiring urgent evaluation. documented in this encounter [facility] 10-07-2024 Note [facility]iology Clinic Note Chief Complaint: Patient [...] history of COPD (chronic obstructive pulmonary disease) ([facility]), Coronary artery disease, Hyperlipidemia, Hypertension, and Sleep [...] 109, BUN 1 (more content not included)... [facility] 07-15-2024 History of Present illness Narrative Paras [...] should problems arise. documented in this encounter [facility] 02-23-2023 Evaluation note Encounter Date Diagnosis Assessment Notes Feb, Urticaria (ICD-10 - L50.9) Discussed diagnosis with patient. We will send in Rx of prednisone taper to use as directed. Continue [id number] Benadryl/Zyrtec or Claritin. Advised patient to avoid hot showers/baths encouraged use of cool compresses. Patient needs to follow-up with PCP if this rash does not improve with treatment. Immediate evaluation in ER for signs and symptoms as discussed. Patient verbalizes understanding and is agreeable to treatment plan. [facility] 04-14-2023 Evaluation note* Encounter Date Diagnosis [...] concerns Feb, Acute cough (ICD-10 - R05.1) [facility] Other 04-12-2022 Evaluation note* Encounter Date Diagnosis Assessment Notes Treatment Notes Treatment Clinical Notes Feb, Infected tooth (ICD-10 - K04.7) Take medications as directed.Highly encourage patient to contact dentist TIARA for further treatment of infection. Do not take OTC medications like ibuprofen with prescriptions [facility] Other Evaluation + Plan note No data available for this section [facility] General Surgery [facility] Evaluation note* Diagnosis Severe persistent asthma with (acute) exacerbation (CMS/HCC)- Primary documented in this encounter [facility]* Diagnosis Acute pain of left knee- Primary Internal derangement of left knee documented in this encounter [facility]* Diagnosis Acute pain of left knee- Primary Acute medial meniscus tear of left knee, initial encounter documented in this encounter [facility]* Diagnosis Severe persistent asthma without complication (CMS/HCC)- Primary documented in this encounter [facility]* Diagnosis Onychodystrophy- Primary Other specified disease of nail Onychomycosis Dermatophytosis of nail documented in this encounter [facility]* Diagnosis Chronic bronchitis, unspecified chronic bronchitis type (HCC)- Primary Chronic rhinitis [facility] - [facility]orted* Type Description Date Medical History Benign essential HTN Surgical History knee surgery Surgical History shoulder surgery Surgical History tonsillectomy and adenoidectomy Surgical History wisdom teeth Surgical History vasectomy Hospitalization History see above [facility] Other History general Narrative - Reported* Type Description Date Medical History Benign essential HTN Medical History High cholesterol Surgical History knee surgery Surgical History shoulder surgery Surgical History tonsillectomy and adenoidectomy Surgical History wisdom teeth Surgical History vasectomy Surgical History stent 2021 Hospitalization History see above [facility] Other Hospital Discharge instructions No data available for this section [facility] General Surgery [facility] Progress note No data available for this section [facility] General Surgery [facility] Summary Purpose Family History No Family History Records Found No data available for this section No Family History Records FoundNo Family History [...] presents with toenail fungus FUV. SS 9.5 Reason Comments Follow-up SIX MONTH FOLLOW UP ON ASTHMA pt states he still has SOB but did just have a heart cath in June (unrecognized sect ion and content) No Status Records FoundNo Status Records FoundNo Status Records FoundNo Status Records Found INFORMATION SOURCE (unrecogn ized section and content) DATE CREATED AUTHOR 03/19/2023 [facility] DATE CREATED AUTHOR AUTHOR'S ORGANIZ ATION 07/18/2025 [facility] DATE CREATED AUTHOR AUTHOR'S ORGANIZ ATION 07/19/2025 [facility] DATE CREATED AUTHOR AUTHOR'S ORGANIZ ATION 08/10/2025 [facility] EPIC Care Teams (unrecognized sec tion and content) Learning Engineer Relationship Specialty Start Date End Date Lambert Jose MD [address] [place] [address] PCP - General 06/05/23 Learning Engineer Relationship Specialty Start Date End Date Lambert Jose MD [address] [place] [address] PCP - General 06/05/23 Learning Engineer Relationship Specialty Start Date End Date Lambert Jose MD [address] [place] [address] PCP - General 06/05/23 Learning Engineer Relationship Specialty Start Date End Date Lambert Jose MD [address] [place] [address] PCP - General 06/05/23 Learning Engineer Relationship Specialty Start Date End Date Lambert Jose MD [address] [place] [address] PCP - General 06/05/23 Learning Engineer Relationship Specialty Start Date End Date Lambert Jose MD [address] [place] [address] PCP - General 06/05/23 Learning Engineer Relationship Specialty Start Date End Date Lambert Jose MD [address] [place] [address] PCP - General 06/05/23 Learning Engineer Relationship Specialty Start Date End Date Lambert Jose MD [address] [place] [address] PCP General 06/05/23 FOR RECORDS PERTAINING TO [...] BE BASED ON THE PRIMARY CLINICAL RECORDS. [facility] [employer], [facility]. provides no warranty or guarantee of the accuracy or completeness of information in this document.
== END 2025-08-12 10:07 | disposition home or self-care (01) ==
LOC: PST 10:07
PROVIDERS: PCP Family Medicine; Visit Provider Surgery
DX: Z01.818 Encounter for other preprocedural examination (principal); D64.9 Anemia, unspecified; K22.70 Barrett's esophagus without dysplasia; K63.5 Polyp of colon

== ENCOUNTER 2025-08-12 15:45 | Outpatient (OUT) | payer OTHER, SELFPAY ==
--- OUTSIDE RECORDS SUMMARY | 2025-08-04 16:00 | XMS_ITS | Encounter Summary ---
Author Organization [facility] Address [address] [place] [address] Care Team Providers Care Brick Chimney Supervisor Name Role Phone Ben Jose MD Primary Care Provider [phone] Reason for Visit * Reason Comments Follow-up SIX MONTH FOLLOW UP ON ASTHMA pt states he still has SOB but did just have a heart cath in June Encounter Details Date Type Department Care Team (Late st Contact Info) Description 08/04/2025 4:00 PM EDT Office Visit [facility] [address] [facility] [address] [place] [address] Cesar Dunham MD [address] [facility] [address] [place] [address] Chronic bronchitis, unspecified chronic bronchitis type (HCC) (Primary Dx); Chronic rhinitis Social History Tobacco Use Types Packs/Day Years [...] on file documented as of this encounter Progress Notes * Cesar Dunham MD - 08/04/2025 4:00 PM EDT Sajan Humphreys returns to the office today. Urticaria control test today is 14. He had a heart caththat was normal in June. He is off all of his medications at the current time and feels that all of his medications were not helpful for SOB at all. He feels his sinus symptoms are notable for nasal airway obstruction at night and in the AM. He had ear tubes in the past but has never had pneumonia . Dupixent lisinopril Atarax Skin testing negative EXAM The patient appears comfortable in the [...] of any lesions, excoriations, or erythema. IMPRESSION: Chronic rhinitis - we discussed the risks and benefits of therapy with Flonase and azelastine for his nasal congestion and agreed to defer on this at the current time. COPD - stay off Dupixent and defer cardiopulmonary testing and other bronchodilators such as Ohtuvarye. We did discuss the risks and benefits of these treatment options at length in the office but hewould prefer to defer on this at the current time. Follow-up was arranged in the allergy clinic on an as needed basis. I did suggest he try and walk on a regular basis. Follow-up with Dr. Patterson in 2-3 months. documented in this encounter Plan of Treatment Not on file documented as of this encounter Visit Diagnoses Diagnosis Chronic bronchitis, unspecified chronic bronchitis type (HCC)- Primary Chronic rhinitis documented in this encounter Care Teams Brick Chimney Supervisor Relationship Specialty Start Date End Date Ben Jose MD [address] [place] [phone] PCP - General 06/05/23 documented as of this encounter
--- OUTSIDE RECORDS SUMMARY | 2025-08-12 15:52 | XMS_ITS | CCD ---
Author Organization [facility] Providers Care Slot Machine Department Floorperson Name Role Phone Dimple Milligan Unavailable YolandaEmma [...] Unavailable HOY ., DR VERDIN Admitting Unavailable P[place], DR PADMINI Ravi Consulting Unavailable HOY ., DR VEDRIN Consulting Unavailable HOY ., DR VERDIN Referring [...] Unavailable Lambert Jose MD Primary Care Provider [phone] Lambert Jose MD Primary Care Provider [phone] Lambert Jose Primary Care Physician HERACLIO RIVAS [...] Medication Allergies] Propensity to adverse reactions (disorder) [facility] Repository Medications Current Medications Medication Drug [...] disease (20 sources) Atherosclerotic heart disease of [place] coronary artery without angina pectoris; Translations: [Coronary [...] 03-15-2023 Episodic Other aftercare (1 source) Other mcfp (current) drug therapy; Translations: [OTH DETENTION CURRENT DRUG THERAPY] Onset: 03-18-2023 Episodic Other aftercare (1 source) FDC (current) use of aspirin; Translations: [DETENTION CURRENT [...] signed up for this yet, please contact [employer] at [phone] to get signed up today. Language Information Language assistance services are available as needed. Normal [facility] Follow-Upon 07-10-2025 Follow-Up [id number] Jada Grigsby 1965 M Date Provider Department Center 07/10/2025 [id number] TANG GENNARO Buck Family History Problem Relation Age of Onset Heart failure Father Coronary artery disease Father Family Status - Relation Status Age at Mother Father Level of Service:59423 [place] OFFICE/OUTPATIENT ESTABLISHED MOD MDM 30 MIN Reason for Visit and Comments: Coronary Artery Disease [187] Hypertension [664667] 1 month follow up [Other] - S/P right/left heart cath Echo done 3 weeks ago at [facility] [Other] Stent placement 2021 [Other] - Stent placement 2021 Shortness of Breath [740611] - SOB and VILLAVICENCIO Normal [facility] Orders Onlyon 06-26-2025 Orders Only [id number] Jada Grigsby 1965 M Date Provider Department Center 06/26/2025 [id number], HISTORICAL GENNARO Buck Family History Problem Relation Age of Onset Heart failure Father Coronary artery disease Father Family Status - Relation Status Age at Mother [facility] H&P reviewed. The janna garcia was examined and there are no changes to the H&P. Will proceed with coronary angiography and right heart catheterization for further evaluation of his symptoms. Consent for blood products obtained. Risks, benefits, and alternatives to procedure discussed with patient in detail who expressed understanding and agreed to proceed. [facility] NURSNOTEon 06-12-2025 NURSNOTE RN educated pt [...] off of unit with all of belongings. [facility] Orders Onlyon 06-06-2025 Orders Only [id number] PetrJada Juan 1965 M Date Provider Department Center 06/06/2025 ATUL DIETZ [facility] Family History Problem Relation Age of Onset Heart failure Father Coronary artery disease Father Family Status - Relation Status Age at Mother [facility] SUBJECTIVE Chief Complaint Patient presents with Chest [...] and chest pain with exertion. 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 get up into his [...] Problem List Diagnosis Chest pain CAD in [place] artery Essential hypertension COPD (chronic obstructive pulmonary disease) (CMS/[facility]) S/P drug eluting coronary stent placement Hyperplastic polyp of intestine Dyspnea Shortness of breath Severe persistent asthma with acute exacerbation ([facility]CC) Degeneration of intervertebral disc of cervical region Other cervical disc displacement at C6-C7 level Radiculopathy, cervical region Spinal stenosis, cervical region Hypertensive retinopathy Umbilical hernia VILLAVICENCIO (dyspnea on exertion) Past Medical History: Diagnosis Date COPD (chronic obstructive pulmonary disease) (CMS/[facility]) Coronary artery disease Hyperlipidemia Hypertension [...] is w (more content not included)... Normal [facility] Office Visiton 06-05-2025 Follow-up visit [id number] Jada Grigsby S 1965 M Date Provider Department Center 06/05/2025 ISAAC TELLEZ Family History Problem Relation Age of Onset Heart failure Father Coronary artery disease Father Family Status - Relation Status Age at Mother Father Level of Service:69562 [place] OFFICE/OUTPATIENT ESTABLISHED MOD MDM 30 MIN Reason for Visit and Comments: Chest Pain [082039] Coronary Artery Disease [187] Normal [facility] Orders Onlyon 04-25-2025 Orders Only [id number] Jada Grigsby S 1965 M Date Provider Department Center 04/25/2025 DAMIAN VARGAS Family History Problem Relation Age of Onset Heart failure Father Coronary artery disease Father Family Status - Relation Status Age at Mother Father Normal [facility] Office Visiton 04-18-2025 Follow-up visit [id number] Mando Grigsbyanjel Juan 1965 M Date Provider Department Center 04/18/2025 DAMIAN VARGAS Family History Problem Relation Age of Onset Heart failure Father Coronary artery disease Father Family Status - Relation Status Age at Mother Father Level of Service:20199 [place] OFFICE/OUTPATIENT ESTABLISHED MOD [facility] 30 MIN Normal [facility] MR KNEE LEFT WO IV CONTRASTo [...] knee with age indeterminate metallic foreign body. [facility] Radiology Study observation (narrative) [facility] Office Visiton 10-07-2024 Follow-up visit [id number] Jada Grigsby 1965 M Date Provider Department Center 10/07/2024 [id number], EHAB CARD [facility] Family History Problem Relation Age of Onset Heart failure Father Coronary artery disease Father Family Status - Relation Status Age at Father Level of Service:22149 [place] OFFICE/OUTPATIENT ESTABLISHED LOW MDM 20 MIN Normal [facility] THEOPHYLLINEon 03-15-2023 THEOPHYLLINE 5.9 ug/mL Critically low 10.0-20.0 [facility] Comment on above: Performed By: #### T ALAN #### [facility] [address] [place] [address] Dr. Navneet Aguilar CHUCKIE by IFAon 01-23-2023 Antinuclear Antibodies, IFA Positive Abnormal [facility] Comment on above: Result Comment: Nega tive <1:80 Borderline 1:80 Positive >1:80 Performed By: #### C BC #### [facility] [address] [address] [address] Navneet Aguilar Centriole Pattern Normal [facility] Comment on above: Performed By: #### C BC #### [facility] [address] [address] [address] Navneet Aguilar Centromere Pattern Normal [facility] Comment on above: Performed By: #### C BC #### [facility] [address] [address] [address] Navneet Aguilar Homogeneous Pattern 1:80 Normal [facility] Comment on above: Result Comment: ICAP nomenclature: AC-1 Performed By: #### C BC #### [facility] [address] [place], [place] [address] Dr. Navneet Aguilar Midbody Pattern Normal [facility] Comment on above: Performed By: #### C BC #### [facility] [address] [place], [place] [address] Dr. Navneet Aguilar Note: Comment Normal [facility] Comment on above: Result Comment: For [...] titers Nucleosomes, Histones Drug-induced SLE Speckled Sm, [employer], SCL-70, SLE,MCTD,PSS (diffuse form), SS-A/SS-B Sjogrens Nucleolar SCL-70, PM-1/SCL High titers Scleroderma, PM/DM Centromere Centromere PSS (limited form) w/Crest syndrome variable Nuclear Dot [id number] Primary Biliary Cirrhosis Nuclear GP210, Primary Biliary Cirrhosis Membrane ofelia A,B,C Performed By: #### C BC #### [facility] [address] [place] [address] Dr. Navneet Aguilar Nuclear Dot Pattern Normal [facility] Comment on above: Performed By: #### C BC #### [facility] [address] [place] [address] Dr. Navneet Aguilar Nuclear Membrane Pattern Normal [facility] Comment on above: Performed By: #### C BC #### [facility] [address] [place] [address] Dr. Navneet Aguilar Nucleolar Pattern Normal [facility] Comment on above: Performed By: #### C BC #### [facility] [address] [place] [address] Dr. Navneet Aguilar PCNA Pattern Normal [facility] Comment on above: Performed By: #### C BC #### [facility] [address] [place] [address] Dr. Navneet Aguilar Speckled Pattern Normal [facility] Comment on above: Performed By: #### C BC #### [facility] [address] [place] [address] Dr. Navneet Aguilar Spindle Apparatus Pattern Normal [facility] Comment on above: Performed By: #### C BC #### [facility] [address] [place] [address] Dr. Navneet Aguilar INSULINon 01-23-2023 Insulin 50.9 uIU/mL Critically high 2.6-24.9 [facility] Comment on above: Performed By: #### I NSULIN #### [facility] [address] [place] [address] Dr. Navneet Aguilar ANTISTREPTOLYSIN O AB (ASO)o n 01-22-2023 Antistreptolysin O Ab 55.6 IU/mL Normal 0.0-200.0 [facility] Comment on above: Performed By: #### H GB #### [facility] [address] [place] [address] Dr. Navneet Aguilar RHEUMATOID FACTORon 01-23-20 RA Latex Turbid. <10.0 Normal <14.0 [facility] Comment on above: Performed By: #### H GB #### [facility] [address] [place] [address] Dr. Navneet Aguilar CBC AUTO DIFFon 01-21-2023 BASO # 0.0 103/ul Normal 0.0-0.1 [facility] Comment on above: Performed By: #### C BC #### [facility] [address] [place] [address] Dr. Navneet Aguilar Basophils/100 WBC (Bld) 0.8 % Normal 0.2-2.0 [facility] Comment on above: Performed By: #### C BC #### [facility] [address] [place] [address] Dr. Navneet Aguilar EO # 0.1 103/ul Normal 0.0-0.7 [facility] Comment on above: Performed By: #### C BC #### [facility] [address] [place] [address] Dr. Navneet Aguilar Eosinophils/100 WBC (Bld) 2.1 % Normal 0.9-7.0 [facility] Comment on above: Performed By: #### C BC #### [facility] [address] [place] [address] Dr. Navneet Aguilar Erythrocyte distribution width (RBC) [Ratio] 13.7 % Normal 11.0-15.0 [facility] Comment on above: Performed By: #### C BC #### [facility] [address] [place] [address] Dr. Navneet Aguilar Hematocrit (Bld) [Volume fraction] 37.6 % Critically low 42.0-54.0 [facility] Comment on above: Performed By: #### C BC #### [facility] [address] [place] [address] Dr. Navneet Aguilar Hemoglobin (Bld) [Mass/Vol] 12.7 g/dL Critically low 14.0-18.0 [facility] Comment on above: Performed By: #### C BC #### [facility] [address] [place] [address] Dr. Navneet Aguilar IG # 0.01 10e3/ul Normal 0.00-0.03 [facility] Comment on above: Performed By: #### C BC #### [facility] [address] [place] [address] Dr. Navneet Aguilar IG % 0.2 % Normal 0.0-0.5 [facility] Comment on above: Performed By: #### C BC #### [facility] [address] [place] [address] Dr. Navneet Aguilar LYMPH # 1.8 103/ul Normal 1.2-3.8 [facility] Comment on above: Performed By: #### C BC #### [facility] [address] [place] [address] Dr. Navneet Aguilar Lymphocytes/100 WBC (Bld) 33.1 % Normal 20.5-60.0 [facility] Comment on above: Performed By: #### C BC #### [facility] [address] [place] [address] Dr. Navneet Aguilar MANUAL DIFF REQ NO Normal [facility] Comment on above: Performed By: #### C BC #### [facility] [address] [place] [address] Dr. Navneet Aguilar MCH (RBC) [Entitic mass] 29.4 pg Normal 25.9-34.0 [facility] Comment on above: Performed By: #### C BC #### [facility] [address] [place] [address] Dr. Navneet Aguilar MCHC (RBC) [Mass/Vol] 33.8 g/dL Normal 29.9-35.2 [facility] Comment on above: Performed By: #### C BC #### [facility] [address] [place] [address] Dr. Navneet Aguilar MCV (RBC) [Entitic vol] 87.0 fL Normal 80.0-94.0 [facility] Comment on above: Performed By: #### C BC #### [facility] [address] [place] [address] Dr. Navneet Aguilar MONO # 0.4 103/ul Normal 0.3-0.8 [facility] Comment on above: Performed By: #### C BC #### [facility] [address] [place] [address] Dr. Navneet Aguilar Monocytes/100 WBC (Bld) 8.1 % Normal 1.7-12.0 [facility] Comment on above: Performed By: #### C BC #### [facility] [address] [place] [address] Dr. Navneet Aguilar NEUT # 2.9 103/ul Normal 1.4-6.5 [facility] Comment on above: Performed By: #### C BC #### [facility] [address] [place] [address] Dr. Navneet Aguilar Neutrophils/100 WBC (Bld) 55.7 % Normal 43.0-75.0 [facility] Comment on above: Performed By: #### C BC #### [facility] [address] [place] [address] Dr. Navneet Aguilar Platelet mean volume (Bld) [Entitic vol] 10.6 fL Normal 9.5-13.5 [facility] Comment on above: Performed By: #### C BC #### [facility] [address] [address] [address] Navneet Aguilar PLT 236 103/ul Normal 150-450 [facility] Comment on above: Performed By: #### C BC #### [facility] [address] [address] [address] Navneet Aguilar RBC 4.32 106/ul Critically low 4.70-6.10 [facility] Comment on above: Performed By: #### C BC #### [facility] [address] [address] [address] Navneet Aguilar WBC 5.3 103/ul Normal 4.0-11.0 [facility] Comment on above: Performed By: #### C BC #### [facility] [address] [place] [address] Dr. Navneet Aguilar CRPon 01-21-2023 CRP [Mass/Vol] mg/L Normal <=1.[address] [facility] Comment on above: Performed By: #### H GB #### [facility] [address] [place] [address] Dr. Navneet Aguilar FREE THYROXINE INDEX T7on FTI 2.59 Normal 1.30-4.50 [facility] Comment on above: Performed By: #### C BC #### [facility] [address] [place] [address] Dr. Navneet Aguilar T3U 32.0 % Critically low 33.0-40.[address] [facility] Comment on above: Performed By: #### C BC #### [facility] [address] [address] [address] Navneet Aguilar T4 [Mass/Vol] 8.10 ug/dL Normal 4.50-12.10 [facility] Comment on above: Performed By: #### C BC #### [facility] [address] [place] [address] Dr. Navneet Aguilar GLYCOHEMOGLOBIN A1Con 2022 ADA RECOMMENDATION SEE BELOW Normal [facility] Comment on above: Result Comment: ADA RECOMMENDED LIMIT 4.0 - 6.0 ADA THERAPEUTIC TARGET < 7.0 ACTION SUGGESTED > 7.0 Performed By: #### H GB #### [facility] [address] [address] [address] Navneet Aguilar Glucose [Mass/Vol] 126 mg/dL Normal [facility] Comment on above: Performed By: #### H GB #### [facility] [address] [place] [address] Dr. Navneet Aguilar HbA1c (Bld) [Mass fraction] 6.0 % Normal 4.5-6.2 [facility] Comment on above: Performed By: #### H GB #### [facility] [address] [place] [address] Dr. Navneet Aguilar LIPID PROFILEon 01-21-2023 CHOL-HDL RATIO NORM SEE BELOW Normal [facility] Comment on above: Result Comment: 3.3 - 4.4 LOW RISK 4.4 - 7.1 AVERAGE RISK 7.1 - 11.0 MODERATE RISK >11.0 HIGH RISK Performed By: #### C BC #### [facility] [address] [place] [address] Dr. Navneet Aguilar Cholesterol [Mass/Vol] 96 mg/dL Normal <=200 [facility] Comment on above: Performed By: #### C BC #### [facility] [address] [place] [address] Dr. Navneet Aguilar Cholesterol in HDL [Mass/Vol] 45 mg/dL Normal 40-60 [facility] Comment on above: Performed By: #### C BC #### [facility] [address] [place] [address] Dr. Navneet Aguilar Cholesterol in LDL [Mass/Vol] 37.2 mg/dL Normal [facility] Comment on above: Performed By: #### C BC #### [facility] [address] [place] [address] Dr. Navneet Aguilar Cholesterol.total/ Cholesterol in HDL [Mass ratio] 2.1 {ratio} Normal [facility] Comment on above: Performed By: #### C BC #### [facility] [address] [place] [address] Dr. Navneet Aguilar HDL NORMAL > or = 60 mg/dl - LO W CARDIOVASCULAR RISK <40 mg/dl - HIGH CARDIOVASCULAR RISK Normal [facility] Comment on above: Performed By: #### C BC #### [facility] [address] [address] [address] Navneet Aguilar LDL CALC NORMAL SEE BELOW Normal [facility] Comment on above: Result Comment: <100 mg/dl OPTIMAL 100 - 129 mg/dl NEAR OR ABOVE OPTIMAL 130 - 159 mg/dl BORDERLINE HIGH 160 - 189 mg/dl HIGH >190 mg/dl VERY HIGH Performed By: #### C BC #### [facility] [address] [address] [address] Navneet Aguilar Triglyceride [Mass/Vol] 69 mg/dL Normal <=150 [facility] Comment on above: Performed By: #### C BC #### [facility] [address] [address] [address] Navneet Aguilar VLDL CALC 13.8 mg/dL Normal [facility] Comment on above: Performed By: #### C BC #### [facility] [address] [address] [address] Navneet Aguilar OCC BLD IMMUNO SCREENon 01-04 OCCULT BLOOD Negative Normal NEGATIVE [facility] Comment on above: Performed By: #### O BSCRN #### [facility] [address] [address] [address] Navneet Aguilar PROF 14(COMP METB)on 023 Albumin [Mass/Vol] 4.1 g/dL Normal 3.4-5.0 [facility] Comment on above: Performed By: #### C BC #### [facility] [address] [address] [address] Navneet Aguilar Albumin/Globulin [Mass ratio] 1.4 {ratio} Normal [facility] Comment on above: Performed By: #### C BC #### [facility] [address] [address] [address] Navneet Aguilar ALP [Catalytic activity/Vol] 40 U/L Critically low 46-116 [facility] Comment on above: Performed By: #### C BC #### [facility] [address] [address] [address] Navneet Aguilar ALT [Catalytic activity/Vol] 33 U/L Normal 16-63 [facility] Comment on above: Performed By: #### C BC #### [facility] [address] [place] [address] Dr. Navneet Aguilar Anion gap [Moles/Vol] 14.6 mmol/L Normal [facility] Comment on above: Performed By: #### C BC #### [facility] [address] [place] [address] Dr. Navneet Aguilar AST [Catalytic activity/Vol] 33 U/L Normal 15-37 [facility] Comment on above: Performed By: #### C BC #### [facility] [address] [place] [address] Dr. Navneet Aguilar Bilirubin [Mass/Vol] 0.4 mg/dL Normal 0.2-1.0 [facility] Comment on above: Performed By: #### C BC #### [facility] [address] [place] [address] Dr. Navneet Aguilar Calcium [Mass/Vol] 9.2 mg/dL Normal 8.5-10.1 [facility] Comment on above: Performed By: #### C BC #### [facility] [address] [place] [address] Dr. Navneet Aguilar Chloride [Moles/Vol] 109 mmol/L Critically high 98-107 [facility] Comment on above: Performed By: #### C BC #### [facility] [address] [place] [address] Dr. Navneet Aguilar CO2 [Moles/Vol] 23.1 mmol/L Normal 21.0-32.0 [facility] Comment on above: Performed By: #### C BC #### [facility] [address] [place] [address] Dr. Navneet Aguilar Creatinine [Mass/Vol] 1.12 mg/dL Normal 0.70-1.30 [facility] Comment on above: Performed By: #### C BC #### [facility] [address] [place] [address] Dr. Navneet Aguilar EGFR-AF CITIZEN [place] >60 Normal >=60 [facility] Comment on above: Performed By: #### C BC #### [facility] [address] [place] [address] Dr. Navneet Aguilar EGFR-NON AF CITIZEN OF [place] >60 Normal >=60 [facility] Comment on above: Performed By: #### C BC #### [facility] [address] [place] [address] Dr. Navneet Aguilar Globulin (S) [Mass/Vol] 2.9 g/dL Normal [facility] Comment on above: Performed By: #### C BC #### [facility] [address] [place] [address] Dr. Navneet Aguilar Glucose [Mass/Vol] 109 mg/dL Critically high 74-106 [facility] Comment on above: Performed By: #### C BC #### [facility] [address] [place] [address] Dr. Navneet Aguilar Potassium [Moles/Vol] 3.7 mmol/L Normal 3.5-5.1 [facility] Comment on above: Performed By: #### C BC #### [facility] [address] [place] [address] Dr. Navneet Aguialr Protein [Mass/Vol] 7.0 g/dL Normal 6.4-8.2 [facility] Comment on above: Performed By: #### C BC #### [facility] [address] [place] [address] Dr. Navneet Aguilar Sodium [Moles/Vol] 143 mmol/L Normal 136-145 [facility] Comment on above: Performed By: #### C BC #### [facility] [address] [place] [address] Dr. Navneet Aguilar Urea nitrogen [Mass/Vol] 18.0 mg/dL Normal 7.0-18.0 [facility] Comment on above: Performed By: #### C BC #### [facility] [address] [place] [address] Dr. Navneet Aguilar Urea nitrogen/Creatinin e [Mass ratio] 16.1 mg/mg Normal [facility] Comment on above: Performed By: #### C BC #### [facility] [address] [address] [address] Navneet Aguilar TSHon 01-21-2023 TSH 1.912 uIU/mL Normal 0.358-3.740 [facility] Comment on above: Performed By: #### H GB #### [facility] [address] [place] [address] Dr. Navneet Aguilar URIC ACID SERUMon 01-21-2023 Urate [Mass/Vol] 6.9 mg/dL Normal 3.5-7.2 [facility] Comment on above: Performed By: #### H GB #### [facility] [address] [place] [address] Dr. Navneet Aguilar THEOPHYLLINEon 12-26-2022 THEOPHYLLINE 5.3 ug/mL Critically low 10.0-20.0 [facility] Comment on above: Performed By: #### C BC #### [facility] [address] [place] [address] Dr. Navneet Aguilar LIPID PROFILEon 10-01-2022 CHOL-HDL RATIO NORM SEE BELOW Normal [facility] Comment on above: Result Comment: 3.3 - 4.4 LOW RISK 4.4 - 7.1 AVERAGE RISK 7.1 - 11.0 MODERATE RISK >11.0 HIGH RISK Performed By: #### L IPID, CMP #### [facility] [address] [place] [address] Dr. Navneet Aguilar Cholesterol [Mass/Vol] 92 mg/dL Normal <=200 [facility] Comment on above: Performed By: #### L IPID, CMP #### [facility] [address] [place] [address] Dr. Navneet Aguilar Cholesterol in HDL [Mass/Vol] 40 mg/dL Normal 40-60 [facility] Comment on above: Performed By: #### L IPID, CMP #### [facility] [address] [place] [address] Dr. Navneet Aguilar Cholesterol in LDL [Mass/Vol] 33.2 mg/dL Normal [facility] Comment on above: Performed By: #### L IPID, CMP #### [facility] [address] [address] [address] Navneet Aguilar Cholesterol.total/ Cholesterol in HDL [Mass ratio] 2.3 {ratio} Normal [facility] Comment on above: Performed By: #### L IPID, CMP #### [facility] [address] [address] [address] Navneet Aguilar HDL NORMAL > or = 60 mg/dl - LO W CARDIOVASCULAR RISK <40 mg/dl - HIGH CARDIOVASCULAR RISK Normal [facility] Comment on above: Performed By: #### L IPID, CMP #### [facility] [address] [address] [address] Navneet Aguilar LDL CALC NORMAL SEE BELOW Normal [facility] Comment on above: Result Comment: <100 mg/dl OPTIMAL 100 - 129 mg/dl NEAR OR ABOVE OPTIMAL 130 - 159 mg/dl BORDERLINE HIGH 160 - 189 mg/dl HIGH >190 mg/dl VERY HIGH Performed By: #### L IPID, CMP #### [facility] [address] [address] [address] Navneet Aguilar Triglyceride [Mass/Vol] 94 mg/dL Normal <=150 [facility] Comment on above: Performed By: #### L IPID, CMP #### [facility] [address] [address] [address] Navneet Aguilar VLDL CALC 18.8 mg/dL Normal [facility] Comment on above: Performed By: #### L IPID, CMP #### [facility] [address] [address] [address] Navneet Aguilar PROF 14(COMP METB)on 022 Albumin [Mass/Vol] 3.6 g/dL Normal 3.4-5.0 [facility] Comment on above: Performed By: #### L IPID, CMP #### [facility] [address] [address] [address] Navneet Aguilar Albumin/Globulin [Mass ratio] 1.2 {ratio} Normal [facility] Comment on above: Performed By: #### L IPID, CMP #### [facility] [address] [address] [address] Navneet Aguilar ALP [Catalytic activity/Vol] 45 U/L Critically low 46-116 [facility] Comment on above: Performed By: #### L IPID, CMP #### [facility] [address] [address] [address] Navneet Aguilar ALT [Catalytic activity/Vol] 25 U/L Normal 16-63 [facility] Comment on above: Performed By: #### L IPID, CMP #### [facility] [address] [address] [address] Navneet Aguilar Anion gap [Moles/Vol] 13.5 mmol/L Normal [facility] Comment on above: Performed By: #### L IPID, CMP #### [facility] [address] [address] [address] Navneet Aguilar AST [Catalytic activity/Vol] 37 U/L Normal 15-37 [facility] Comment on above: Performed By: #### L IPID, CMP #### [facility] [address] [address] [address] Navneet Aguilar Bilirubin [Mass/Vol] 0.4 mg/dL Normal 0.2-1.0 [facility] Comment on above: Performed By: #### L IPID, CMP #### [facility] [address] [address] [address] Navneet Aguilar Calcium [Mass/Vol] 8.9 mg/dL Normal 8.5-10.1 [facility] Comment on above: Performed By: #### L IPID, CMP #### [facility] [address] [address] [address] Navneet Aguilar Chloride [Moles/Vol] 109 mmol/L Critically high 98-107 [facility] Comment on above: Performed By: #### L IPID, CMP #### [facility] [address] [address] [address] Navneet Aguilar CO2 [Moles/Vol] 25.3 mmol/L Normal 21.0-32.0 [facility] Comment on above: Performed By: #### L IPID, CMP #### [facility] [address] [address] [address] Navneet Aguilar Creatinine [Mass/Vol] 1.07 mg/dL Normal 0.70-1.30 [facility] Comment on above: Performed By: #### L IPID, CMP #### [facility] [address] [address] [address] Navneet Aguilar EGFR-AF CITIZEN [place] >60 Normal >=60 [facility] Comment on above: Performed By: #### L IPID, CMP #### [facility] [address] [address] [address] Navneet Aguilar EGFR-NON AF CITIZEN OF [place] >60 Normal >=60 [facility] Comment on above: Performed By: #### L IPID, CMP #### [facility] [address] [address] [address] Navneet Aguilar Globulin (S) [Mass/Vol] 3.1 g/dL Normal [facility] Comment on above: Performed By: #### L IPID, CMP #### [facility] [address] [address] [address] Navneet Aguilar Glucose [Mass/Vol] 115 mg/dL Critically high 74-106 [facility] Comment on above: Performed By: #### L IPID, CMP #### [facility] [address] [address] [address] Navneet Aguilar Potassium [Moles/Vol] 3.8 mmol/L Normal 3.5-5.1 [facility] Comment on above: Performed By: #### L IPID, CMP #### [facility] [address] [address] [address] Navneet Aguilar Protein [Mass/Vol] 6.7 g/dL Normal 6.4-8.2 [facility] Comment on above: Performed By: #### L IPID, CMP #### [facility] [address] [address] [address] Navneet Aguilar Sodium [Moles/Vol] 144 mmol/L Normal 136-145 [facility] Comment on above: Performed By: #### L IPID, CMP #### [facility] [address] [address] [address] Navneet Aguilar Urea nitrogen [Mass/Vol] 21.0 mg/dL Critically high 7.0-18.0 [facility] Comment on above: Performed By: #### L IPID, CMP #### [facility] [address] [address] [address] Navneet Aguilar Urea nitrogen/Creatinin e [Mass ratio] 19.6 mg/mg Normal [facility] Comment on above: Performed By: #### L IPID, CMP #### [facility] [address] [address] [address] Navneet Aguilar ASPERGILLUS AB, QUANTITATIVE DIDon 07-08-2022 Aspergillus flavus Negative Normal Neg:<1:1 [facility] Comment on above: Performed By: #### C BC #### [facility] [address] [place] [address] Dr. Navneet Aguilar Aspergillus fumigatus Negative Normal Neg:<1:1 [facility] Comment on above: Performed By: #### C BC #### [facility] [address] [place] [address] Dr. Navneet Aguilar Aspergillus niger Negative Normal Neg:<1:1 [facility] Comment on above: Performed By: #### C BC #### [facility] [address] [place] [address] Dr. Navneet Aguilar IMMUNOGLOBULIN E, TOTALon Immunoglobulin E, Total 102 IU/mL Normal 6-495 [facility] Comment on above: Performed By: #### C BC #### [facility] [address] [place] [address] Dr. Navneet Aguilar ANTI NEUTROPHIL CYTOPLASMIC AB (ANCA) PRon 07-05-2022 Anti-MPO Antibodies <0.2 Normal 0.0-0.9 [facility] Comment on above: Result Comment: Perf ormed at: BN Performed By: #### H GB #### [facility] [address] [place] [address] Dr. Navneet Aguilar Anti-PR3 Antibodies <0.2 Normal 0.0-0.9 [facility] Comment on above: Result Comment: Perf ormed at: BN Performed By: #### H GB #### [facility] [address] [place] [address] Dr. Navneet Aguilar Atypical pANCA <1:20 Normal Neg:<1:[address] [facility] Comment on above: Result Comment: The atypical pANCA pattern has been observed in a significant percentage of patients with ulcerative colitis, primary sclerosing cholangitis and autoimmune hepatitis. Performed at: CB Performed By: #### H GB #### [facility] [address] [place] [address] Dr. Navneet Aguilar Cytoplasmic (C-ANCA) <1:20 Normal Neg:<1:20 [facility] Comment on above: Result Comment: Perf ormed at: CB Performed By: #### H GB #### [facility] [address] [place] [address] Dr. Navneet Aguilar Perinuclear (P-ANCA) <1:20 Normal Neg:<1:20 [facility] Comment on above: Result Comment: The presence of positive fluorescence exhibiting P-ANCA or C-ANCA patterns alone is not specific for the diagnosis of [place]'s Granulomatosis (WG) or microscopic polyangiitis. Decisions about treatment should not be based solely on ANCA IFA results. The [employer] ANCA [employer] Consensus recommends follow up testing of positive sera with both WA-3 and MPO-ANCA enzyme immunoassays. As many as 5% serum samples are positive only by EIA. Ref. AM J Clin Pathol 1999;111:507-513. Performed at: CB Performed By: #### H GB #### [facility] [address] [place] [address] Dr. Navneet Aguilar CBC AUTO DIFFon 06-30-2022 BASO # 0.0 103/ul Normal 0.0-0.1 [facility] Comment on above: Performed By: #### C BC #### [facility] [address] [place] [address] Dr. Navneet Aguilar Basophils/100 WBC (Bld) 0.7 % Normal 0.2-2.0 [facility] Comment on above: Performed By: #### C BC #### [facility] [address] [place] [address] Dr. Navnete Aguilar EO # 0.1 103/ul Normal 0.0-0.7 [facility] Comment on above: Performed By: #### C BC #### [facility] [address] [place] [address] Dr. Navneet Aguilar Eosinophils/100 WBC (Bld) 1.9 % Normal 0.9-7.0 [facility] Comment on above: Performed By: #### C BC #### [facility] [address] [place] [address] Dr. Navneet Aguilar Erythrocyte distribution width (RBC) [Ratio] 12.5 % Normal 11.0-15.0 [facility] Comment on above: Performed By: #### C BC #### [facility] [address] [place] [address] Dr. Navneet Aguilar Hematocrit (Bld) [Volume fraction] 38.6 % Critically low 42.0-54.0 [facility] Comment on above: Performed By: #### C BC #### [facility] [address] [place] [address] Dr. Navneet Aguilar Hemoglobin (Bld) [Mass/Vol] 12.9 g/dL Critically low 14.0-18.0 [facility] Comment on above: Performed By: #### C BC #### [facility] [address] [place] [address] Dr. Navneet Aguilar IG # 0.01 10e3/ul Normal 0.00-0.03 [facility] Comment on above: Performed By: #### C BC #### [facility] [address] [place] [address] Dr. Navneet Aguilar IG % 0.2 % Normal 0.0-0.5 [facility] Comment on above: Performed By: #### C BC #### [facility] [address] [place] [address] Dr. Navneet Aguilar LYMPH # 2.4 103/ul Normal 1.2-3.8 [facility] Comment on above: Performed By: #### C BC #### [facility] [address] [place] [address] Dr. Navneet Aguilar Lymphocytes/100 WBC (Bld) 41.7 % Normal 20.5-60.0 [facility] Comment on above: Performed By: #### C BC #### [facility] [address] [place] [address] Dr. Navneet Aguilar MANUAL DIFF REQ NO Normal [facility] Comment on above: Performed By: #### C BC #### [facility] [address] [place] [address] Dr. Navneet Aguilar MCH (RBC) [Entitic mass] 29.8 pg Normal 25.9-34.0 [facility] Comment on above: Performed By: #### C BC #### [facility] [address] [place] [address] Dr. Navneet Aguilar MCHC (RBC) [Mass/Vol] 33.4 g/dL Normal 29.9-35.2 [facility] Comment on above: Performed By: #### C BC #### [facility] [address] [place] [address] Dr. Navneet Aguilar MCV (RBC) [Entitic vol] 89.1 fL Normal 80.0-94.0 [facility] Comment on above: Performed By: #### C BC #### [facility] [address] [place] [address] Dr. Navneet Aguilar MONO # 0.6 103/ul Normal 0.3-0.8 [facility] Comment on above: Performed By: #### C BC #### [facility] [address] [place] [address] Dr. Navneet Aguilar Monocytes/100 WBC (Bld) 10.5 % Normal 1.7-12.0 [facility] Comment on above: Performed By: #### C BC #### [facility] [address] [place] [address] Dr. Navneet Aguilar NEUT # 2.6 103/ul Normal 1.4-6.5 [facility] Comment on above: Performed By: #### C BC #### [facility] [address] [place] [address] Dr. Navneet Aguilar Neutrophils/100 WBC (Bld) 45.0 % Normal 43.0-75.0 [facility] Comment on above: Performed By: #### C BC #### [facility] [address] [place] [address] Dr. Navneet Aguilar Platelet mean volume (Bld) [Entitic vol] 10.1 fL Normal 9.5-13.5 [facility] Comment on above: Performed By: #### C BC #### [facility] [address] [place] [address] Dr. Navneet Aguilar PLT 296 103/ul Normal 150-450 [facility] Comment on above: Performed By: #### C BC #### [facility] [address] [place] [address] Dr. Navneet Aguilar RBC 4.33 106/ul Critically low 4.70-6.10 [facility] Comment on above: Performed By: #### C BC #### [facility] [address] [place] [address] Dr. Navneet Aguilar WBC 5.8 103/ul Normal 4.0-11.0 [facility] Comment on above: Performed By: #### C BC #### [facility] [address] [place] [address] Dr. Navneet Aguilar PROF CHEM 8 (BAS METB)on Anion gap [Moles/Vol] 13.2 mmol/L Normal [facility] Comment on above: Performed By: #### B MP #### [facility] [address] [place] [address] Dr. Navneet Aguilar Calcium [Mass/Vol] 9.1 mg/dL Normal 8.5-10.1 [facility] Comment on above: Performed By: #### B MP #### [facility] [address] [place] [address] Dr. Navneet Aguilar Chloride [Moles/Vol] 106 mmol/L Normal 98-107 [facility] Comment on above: Performed By: #### B MP #### [facility] [address] [place] [address] Dr. Navneet Aguilar CO2 [Moles/Vol] 23.7 mmol/L Normal 21.0-32.0 [facility] Comment on above: Performed By: #### B MP #### [facility] [address] [address] [address] Navneet Aguilar Creatinine [Mass/Vol] 1.06 mg/dL Normal 0.70-1.30 [facility] Comment on above: Performed By: #### B MP #### [facility] [address] [address] [address] Navneet Aguilar EGFR-AF CITIZ[place] >60 Normal >=60 [facility] Comment on above: Performed By: #### B MP #### [facility] [address] [address] [address] Navneet Aguilar EGFR-NON AF CITIZ[place] >60 Normal >=60 [facility] Comment on above: Performed By: #### B MP #### [facility] [address] [address] [address] Navneet Aguilar Glucose [Mass/Vol] 94 mg/dL Normal 74-106 [facility] Comment on above: Performed By: #### B MP #### [facility] [address] [address] [address] Navneet Aguilar Potassium [Moles/Vol] 3.9 mmol/L Normal 3.5-5.1 [facility] Comment on above: Performed By: #### B MP #### [facility] [address] [address] [address] Navneet Aguilar Sodium [Moles/Vol] 139 mmol/L Normal 136-145 [facility] Comment on above: Performed By: #### B MP #### [facility] [address] [address] [address] Navneet Aguilar Urea nitrogen [Mass/Vol] 17.0 mg/dL Normal 7.0-18.0 [facility] Comment on above: Performed By: #### B MP #### [facility] [address] [address] [address] Navneet Aguilar Urea nitrogen/Creatinin e [Mass ratio] 16.0 mg/mg Normal [facility] Comment on above: Performed By: #### B #### [facility] [address] [address] [address] Navneet Aguilar XR CHEST 2 Von [...] by: MICKY MORENO Date: 2022-05-30 10:52 Normal [facility] ECHOCARDIO M/2D COMPLETEon 0 04-18-2022 ECHOCARDIO M/2D COMPLETE Patient: PARAS GRIGSBY Exam Date: 04/18/2022 : 1965 Gender:M Ordering : DR LAMBERT JOSE . Admission #: [id number] Family : Order #: [id number] CLICK HERE TO VIEW EXAM ECHOCARDIOGRAM REPORT [...] Area(A4C): 16.30 cm2 Left Atrium Systolic Volume(A2C): 10971 mm3 Left Atrium Systolic Volume(A4C): 06292 mm3 Mitral Valve MV E to A [...] Rivas M.D. on 04/19/2022 at 18:16 Normal [facility] CTA CHEST WO W CONon 022 [...] by: PADMINI WHITE Date: 2022-04-11 07:16 Normal [facility] HEMOGLOBINon 03-24-2022 Hemoglobin (Bld) [Mass/Vol] 13.2 g/dL Critically low 14.0-18.0 [facility] Comment on above: Performed By: #### H GB #### [facility] [address] [place] [address] Dr. Navneet Aguilar Vital Signs Date Time Vital Sign Value Performing Clinician Facility 04-30-2025 16:14-0400 Body height 170.2 cm Angel Alcaraz DPM Work Phone: [facility] 04-30-2025 16:14-0400 Body mass index (BMI) [Ratio] 40.41 kg/m2 Angel Alcaraz DPM Work Phone: [facility] 04-30-2025 16:14-0400 Body weight 117.03 kg Angel LUCIANOM Work Phone: [facility] 01-30-2025 15:57-0400 Body mass index (BMI) [Ratio] 40.41 kg/m2 Debora Dunham MD Work Phone: [facility] 01-30-2025 15:57-0400 Body weight 117.03 kg Debora Dunham MD Work Phone: [facility] 11-20-2024 13:32-0500 Body height 170.2 cm Giovanny Tatum PA Work Phone: [facility] 11-20-2024 13:32-0500 Body mass index (BMI) [Ratio] 37.59 kg/m2 Giovanny Tatum PA Work Phone: [facility] 11-20-2024 13:32-0500 Body weight 108.86 kg Giovanny Tatum PA Work Phone: [facility] 07-15-2024 15:18-0400 Body mass index (BMI) [Ratio] 40.25 kg/m2 Debora Dunham MD Work Phone: [facility] 07-15-2024 15:18-0400 Body weight 116.57 kg Debora Dunham MD Work Phone: [facility] 02-23-2023 16:25-0400 Body height 170.18 cm Yasmine Joaquin Other [facility] Other 02-23-2023 16:25-0400 Body mass index (BMI) [Ratio] 40.72 kg/m2 Yasmine Joaquin Other [facility] Other 02-23-2023 16:25-0400 Body temperature 98.8 [degF] Yasmine Joaquin Other [facility] Other 02-23-2023 16:25-0400 Body weight 117.94 kg Yasmine Joaquin Other [facility] Other 02-23-2023 16:25-0400 Diastolic blood pressure 70 mm[Hg] Yasmine Joaquin Other [facility] Other 02-23-2023 16:25-0400 Respiratory rate 18 /min Yasmine Joaquin Other [facility] Other 02-23-2023 16:25-0400 SaO2% (BldA) [Mass fraction] 97 % Yasmine Joaquin Other [facility] Other 02-23-2023 16:25-0400 Systolic blood pressure 131 mm[Hg] Yasmine Joaquin Other [facility] Other 02-17-2023 10:10-0400 Body height 170.18 cm Emma Oropezamond Other [facility] Other 02-17-2023 10:10-0400 Body mass index (BMI) [Ratio] 40.72 kg/m2 Emma Oropezamond Other [facility] Other 02-17-2023 10:10-0400 Body temperature 97.7 [degF] Emma Oropezamond Other [facility] Other 02-17-2023 10:10-0400 Body weight 117.94 kg Emma Oropezamond Other [facility] Other 02-17-2023 10:10-0400 Respiratory rate 18 /min Emma Oropezamond Other [facility] Other 02-17-2023 10:10-0400 SaO2% (BldA) [Mass fraction] 94 % Emma Oropezamond Other [facility] Other 02-15-2022 18:45-0400 Body height 170.18 cm Dimple Milligan Other [facility] Other 02-15-2022 18:45-0400 Body mass index (BMI) [Ratio] 39.46 kg/m2 Dimple Milligan Other [facility] Other 02-15-2022 18:45-0400 Body temperature 98.2 [degF] Dimple Milligan Other [facility] Other 02-15-2022 18:45-0400 Body weight 114.31 kg Dimple Milligan Other [facility] Other 02-15-2022 18:45-0400 Diastolic blood pressure 93 mm[Hg] Dimple Milligan Other [facility] Other 02-15-2022 18:45-0400 Respiratory rate 18 /min Dimple Milligan Other [facility] Other 02-15-2022 18:45-0400 SaO2% (BldA) [Mass fraction] 96 % Dimple Milligan Other [facility] Other 02-15-2022 18:45-0400 Systolic blood pressure 158 mm[Hg] Dimple Milligan Other [facility] Other Encounters Encounter Date Encounter Type Care Provider Facility Start: 08-04-2025 End: 08-04-2025 Office outpatient visit 25 minutes [facility] Comment on above: Chronic bronchitis, unspecified chronic bronchitis type (HCC) (Primary Dx); Chronic rhinitis Start: 08-04-2025 End: 08-04-2025 ambulatory DEBORA DUNHAM Not Available Start: 08-04-2025 End: 08-04-2025 Bamboo flowsheet Debora Dunham MD Work Phone: [facility] Start: 08-04-2025 End: 08-04-2025 Bamboo flowsemily Dunham MD Work Phone: [facility] Start: 07-16-2025 End: 07-16-2025 ambulatory Lee HALE Facility:[facility] Start: 07-16-2025 End: 07-16-2025 Patient encounter procedure Lee HALE [facility] [place] Start: 07-10-2025 End: 07-10-2025 ambulatory [facility] Start: 06-12-2025 End: 06-12-2025 ambulatory [facility] Start: 06-05-2025 End: 06-06-2025 ambulatory [facility] Start: 04-30-2025 End: 04-30-2025 Office outpatient visit 15 minutes Angel Alcaraz DPM Work Phone: [facility] Comment on above: Onychodystrophy (Carolyn veronica Dx); Onychomycosis Start: 04-30-2025 End: 04-30-2025 ambulatory ANGEL ALCARAZ Not Available Start: 04-30-2025 End: 04-30-2025 Bamboo flowsheet Angel Alcaraz DPM Work Phone: [facility] Start: 04-30-2025 End: 04-30-2025 Bamboo flowsheet Angel Alcaraz DPM Work Phone: [facility] Start: 04-18-2025 End: 04-18-2025 ambulatory DAMIAN [facility] Start: 01-30-2025 End: 01-30-2025 Office outpatient [...] Available Start: 10-07-2024 End: 10-07-2024 ambulatory [facility] Start: 07-15-2024 End: 07-15-2024 Office outpatient visit 15 minutes Debora Dunham MD Work Phone: [facility] Comment on above: Severe persistent as thma with (acute) exacerbation (CMS/HCC) (Primary Dx) Start: 07-15-2024 End: 07-15-2024 Bamboo flowsheet Debora Dunham MD Work Phone: [facility] Start: 07-15-2024 End: 07-15-2024 Bamboo flowsheet Debora Dunham MD Work Phone: [facility] Start: 03-15-2023 End: 03-16-2023 ambulatory [facility] Facility:[facility] Start: 02-25-2023 End: 02-25-2023 ambulatory ANABELLE AGGARWAL . Facility:[facility] Start: 02-23-2023 End: 02-23-2023 ambulatory Yasmine Joaquin Other [facility] Other Start: 02-23-2023 Office outpatient vi sit 15 minutes Yasmine Joaquin [facility] Start: 02-17-2023 End: 02-17-2023 ambulatory Emma Guerrero Other [facility] Other Start: 02-17-2023 Office outpatient vi sit 15 minutes Emma Guerrero [facility] Start: 01-28-2023 Encounter for genera l adult medical examination without abnormal findings DR LAMBERT JOSE . [facility] Start: 01-21-2023 End: 01-22-[address] LAMBERT JOSE . Facility:H1 Start: 01-21-2023 End: 01-22-2023 Encounter for general adult medical examination without abnormal findings DR LAMBERT JOSE . Facility:[facility]1 Start: 12-26-2022 End: 12-27-2022 ambulatory [facility] Facility:[facility]1 Start: 10-01-2022 End: 10-02-[address] [...] 02-15-2022 End: 02-15-2022 ambulatory Dimple Milligan Other [facility] Other Start: 02-15-2022 Office outpatient vi sit 15 minutes Dimple Milligan [facility] Procedures Date Procedure Procedure Detail Performing Clinician Start: 11-20-2024 Radiologic examination knee 1/2 views Giovanny SALDIVAR Work Phone: Start: 01-21-2023 PSA screening MARYURI HADDAD Comment on above: Performed By: #### PSASC #### [facility] [address] [place] [address] Dr. Navneet Aguilar Start: 08-03-2022 History of [...] Start: 08-04-2025 End: 08-04-2025 Patient encounter procedure [facility] Comment on above: Arrived Start: 07-07-2025 Influenza vaccination [facility] Start: 04-30-2025 End: 04-30-2025 Patient encounter procedure 04/30/2025 4:15 PM EDT Office Visit [facility] [address] [place] [phone] Angel Alcaraz, DPM [address] [place], [place] [phone] Arrived [facility] Comment on above: Arrived Start: 01-30-2025 End: 01-30-2025 Patient encounter procedure [facility] Comment on above: Arrived Start: 12-31-2024 End: 12-31-2024 Patient encounter procedure 12/31/2024 11:30 AM EST Office Visit [facility] [address] [place] [phone] Jr. Heraclio Doshi, DO [address] [facility] [address] [place] [address] [facility] Start: 12-06-2024 End: 12-06-2024 Patient encounter procedure [facility] Comment on above: Acute pain of left k nee (Primary Dx); Acute medial meniscus tear of left knee, initial encounter Start: 11-20-2024 End: 11-20-2025 MR Knee - left WO contrast MR knee left wo IV contrast Imaging Routine Internal derangement of left knee Expected: 11/20/2024 (Approximate), Expires: 11/20/2025 [facility] Work Phone: Comment on above: Expected: 11/20/2024 (Approximate), Expires: 11/20/2025 Start: 11-20-2024 End: 11-20-2024 Patient encounter procedure 11/20/2024 1:30 PM EST Office Visit [facility] [address] [place] [phone] Giovanny Tatum PA [address] [facility] [address] [place] [address] Acute pain of left knee (Primary Dx) [facility] Comment on above: Acute pain of left k nee (Primary Dx) Start: 07-15-2024 End: 07-15-2024 Patient encounter procedure 07/15/2024 3:20 PM EDT Office Visit [facility] [address] [facility] [address] [place] [address] Debora Dunham MD [address] [facility] [address] [place] [address] Arrived [facility] Comment on above: Arrived Start: 07-07-2024 Influenza vaccination Influenza Vacc ine (#1) [facility] Start: 1965 Screening for malignant neoplasm of colon [facility] Immunizations Immunization Date Immunization Notes Care Provider Fa cility 10-25-2021 SARS-CoV-2 (COVID-19 ) mRNA-1273 vaccine Lee HALE [facility] [place] 02-16-2021 SARS-CoV-2 (COVID-19 ) mRNA-1273 vaccine Lee NILL [facility] Comment on above: Result Comment: 2024: 48 01-19-2021 SARS-CoV-2 (COVID-19 ) mRNA-1273 vaccine Lee NILL [facility] NEGATED: Highlighted row has not occurred!09-18-2019 influenza virus vaccine, unspecified formulation Lee HALE [facility] [place] Payers Date Payer Category Payer Private Health Insurance [id number] 2022 Unknown [employer] [id number] 2022-Present [address] [place] [address] [id number] 1965 Unknown [id number] 2.16.840.1.500654.3.579.2.5 93 1963 Unknown [id number] 2.16.840.1.907835.3.579.2.5 93 1963 Unknown [id number] 2.16.840.1.849930.3.579.2.5 1963 Unknown [id number] 2.16.840.1.943150.3.579.2.5 93 1963 Unknown [id number] 2.16.840.1.699755.3.579.2.5 93 1963 Unknown [id number] 2.16.840.1.837073.3.579.2.5 93 1963 Unknown [id number] 2.16.840.1.039288.3.579.2.5 1963 Unknown [id number] 2.16.840.1.443673.3.579.2.5 93 1963 Unknown [id number] 2.16.840.1.323651.3.579.2.5 1963 Unknown [id number] 2.16.840.1.478984.3.579.2.5 1963 Unknown [id number] 2.16.840.1.292425.3.579.2.5 1963 Unknown [id number] 2.16.840.1.174125.3.579.2.5 93 1963 Unknown [id number] 2.16.840.1.734998.3.579.2.5 93 1963 Unknown [id number] 2.16.840.1.134978.3.579.2.7 27 1963 Unknown [id number] 2.16.840.1.368825.3.579.2.1 259 1963 Unknown [id number] 2.16.840.1.936910.3.579.2.1 259 1963 Unknown [id number] 2.16.840.1.613453.3.579.2.1 259 1963 Unknown [id number] 2.16.840.1.584140.3.579.2.1 259 1963 Unknown [id number] 2.16.840.1.089573.3.579.2.1 259 1963 Unknown [id number] 2.16.840.1.907955.3.579.2.1 259 1963 Unknown [id number] 2.16.840.1.245809.3.579.2.1 259 1959 Unknown [id number] 2.16.840.1.297112.19 Social History Date Type Detail Facility Start: 03-28-2024 End: 08-04-2025 [facility] Start: 02-14-2024 End: 04-30-2025 Tobacco smoking status [facility] Ex-smoker [facility] Start: 12-11-1986 End: 10-27-2011 History of tobacco use Current smoker [facility] Start: 12-11-1986 End: 10-27-2011 History of tobacco use Cigarette Smoker [facility] Start: 02-14-2024 End: 04-30-2025 Tobacco use and exposure Former smokeless tobacco user [facility] End: 12-11-1994 History of tobacco use Snuff User [facility] Start: 07-15-2024 End: 08-04-2025 Alcoholic beverage intake Ex-drinker (finding) [facility] Start: 03-28-2024 End: 08-04-2025 History of Social function [facility] Start: 06-12-2023 Alcohol Comment Caffeine intak e: >4 cups per day [facility] Start: 1965 Sex assigned at Male [facility] Start: 06-05-2023 Gender identity Identifies as male gender (finding) [facility] Tobacco smoking status Never [facility] Sexual Orientation [facility] [place] Start: 11-15-2017 Sex Male (finding) [facility] Medical Equipment Procedure Code Equipment Code Equipment Origin al Text Equipment Identifier Dates HERNIA REPAIR, R OBOT DERICK HALE MD, Lee Wagner 10/07/19 Non Biological Abdomen [id number] FDA Start: 10-07-2019 Clinical Notes 02-15-2022 to [...] in 2-3 months. documented in this encounter [facility] 07-16-2025 Note General Surgery Offi ce/Clinic [...] 1 tab(s), O (more content not included)... [facility] Comment on above: Result Comment: Elec tronically Signed By: ALEXIA LEWIS, Lee Wagner\ankur\Date and Time Signed: 07/16/25 16:22 EDT 07-10-2025 Note Cardiovascular Medic [facility] SUBJECTIVE Chief Complaint Patient presents with Coronary Artery Disease Hypertension 1 month follow up S/P right/left heart cath Echo done 3 weeks ago at [facility] Stent placement 2021 Stent placement 2021 [...] and chest pain with exertion. 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 Denies c/o orthopnea, PND, LE edema, dizziness/LH, palpitations, syncope. Patient Active Problem List Diagnosis Chest pain CAD in [place] artery Essential hypertension COPD (chronic obstructive pulmonary disease) ([facility]) S/P drug eluting coronary stent [...] mg tablet, T (more content not included)... [facility] 06-26-2025 Note No significant aguilar es on his ECHO to explain his dyspnea. Recommend he see pulmonary. Will he see someone in [place]? [facility] 06-12-2025 Note Patient: Paras rees Pre-sedation [...] 10/07/2024 Severe persistent asthma with acute exacerbation ([facility]) 11/23/2023 Essential hypertension 08/04/2022 COPD (chronic obstructive pulmonary disease) ([facility]) 08/04/2022 S/P drug eluting coronary stent placement 08/04/2022 CAD in [place] artery 08/03/2022 Dyspnea 06/07/2022 Shortness of breath 11/22/2018 Hyperplastic polyp of intestine 05/03/2017 VILLAVICENCIO (dyspnea on exertion) 06/06/2025 Chest pain 07/14/2022 Allergies: Allergies[2] 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 Barbara Abrams PGY-4 Cold Mill Supervisor [facility] [1] Past Medical History: Diagnosis [...] No current facility-administered medications for this encounter. [facility] 06-05-2025 Note Patient here c/o SOB [...] All other systems reviewed and are negative. [facility] 06-05-2025 Note Cardiovascular Medic [facility] SUBJECTIVE Chief Complaint Patient presents [...] and chest pain with exertion. 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 [facility] 04-30-2025 History of Present illness Narrative [...] History Past Medical History: Diagnosis Date Asthma ([facility]) 2021 COPD (chronic obstructive pulmonary disease) ([facility]) 2021 History of medical problems [...] Angel Alcaraz DPM documented in this encounter [facility] 04-18-2025 Note Patient here today f or a 6 month. Patient states he been sick with the URI x1 week. Patient taking ATB. Patient state he still has VILLAVICENCIO, lightheaded. Review of Systems Cardiovascular: Positive for dyspnea on exertion. Neurological: Positive for light-headedness. [facility] 04-18-2025 Note SUBJECTIVE Reason for Visit: [...] Rate 08/03/2022 53 Atrial Rate 08/03/2022 53 WA Interval 08/03/2022 164 QRS DURATION 08/03/2022 100 QT Interval 08/03/2022 424 QTC CALCULATION(BAZETT) 08/03/2022 397 P [place] 08/03/2022 39 R-[place] 08/03/2022 -7 T Wave [place] 08/03/2022 51 Auto WBC 08/03/2022 4.48 RBC [...] Rate 08/03/2022 50 Atrial Rate 08/03/2022 50 WA Interval 08/03/2022 170 QRS DURATION 08/03/2022 104 QT Interval 08/03/2022 436 QTC CALCULATION(BAZETT) 08/03/2022 397 P [place] 08/03/2022 50 R-[place] 08/03/2022 4 T (more content not included)... [facility] 01-30-2025 History of Present illness Narrative [...] should problems arise. documented in this encounter [facility] 12-06-2024 History of Present illness Narrative Images from the original note were not included. HISTORY OF PRESENT ILLNESS: EST PT Paras Grigsby is an 59 y.o. @ male. (EST PT-PREVIOUSLY SAW ROSENDO TATUM ON 11/20/24) RECHECK LT KNEE PAIN ~2 MONTHS. PT FELT A POP IN KNEE- PT STATES PAIN IS IMPROVING. HERE FOR MRI RESULTS, DONE ON 11/27/24 AT [facility] PT IS ON PLAVIX XRAY LT KNEE 11/20/24 EPIC MRI LT KNEE 11/27/24 EPIC ([facility]) NO CORTISONE INJ NO MDP/PREDNISONE HX [...] of said treatment. documented in this encounter [facility] 11-20-2024 History of Present illness Narrative [...] HISTORY: Past Medical History: Diagnosis Date Asthma ([facility]) 2021 COPD (chronic obstructive pulmonary disease) ([facility]) 2021 History of medical problems 2012 precancerous throat polyps Hyperlipidemia ([facility]) Hypertension ([facility]) PAST SURGICAL HISTORY: Past Surgical [...] requiring urgent evaluation. documented in this encounter [facility] 10-07-2024 Note [facility] Cardiology Clinic Note Chief Complaint: Patient [...] history of COPD (chronic obstructive pulmonary disease) ([facility]), Coronary artery disease, Hyperlipidemia, Hypertension, [...] 109, BUN 1 (more content not included)... [facility] 07-15-2024 History of Present illness Narrative [...] should problems arise. documented in this encounter [facility] 02-23-2023 Evaluation note Encounter Date Diagnosis Assessment Notes Feb, Urticaria (ICD-10 - L50.9) Discussed diagnosis with patient. We will send in Rx of prednisone taper to use as directed. Continue [id number] Benadryl/Zyrtec or Claritin. Advised patient to avoid hot showers/baths encouraged use of cool compresses. Patient needs to follow-up with PCP if this rash does not improve with treatment. Immediate evaluation in ER for signs and symptoms as discussed. Patient verbalizes understanding and is agreeable to treatment plan. [facility] 04-14-2023 Evaluation note* Encounter Date Diagnosis [...] concerns Feb, Acute cough (ICD-10 - R05.1) [facility] Other 04-12-2022 Evaluation note* Encounter Date Diagnosis Assessment Notes Treatment Notes Treatment Clinical Notes Feb, Infected tooth (ICD-10 - K04.7) Take medications as directed.Highly encourage patient to contact dentist TIARA for further treatment of infection. Do not take OTC medications like ibuprofen with prescriptions [facility] Other Evaluation + Plan note No data available for this section [facility] [place] Evaluation note* Diagnosis Severe persistent asthma with (acute) exacerbation (CMS/HCC)- Primary documented in this encounter [facility]* Diagnosis Acute pain of left knee- Primary Internal derangement of left knee documented in this encounter [facility]* Diagnosis Acute pain of left knee- Primary Acute medial meniscus tear of left knee, initial encounter documented in this encounter [facility] Healthcare[facility] note* Diagnosis Severe persistent asthma without complication (CMS/HCC)- Primary documented in this encounter [facility] note* Diagnosis Onychodystrophy- Primary Other specified disease of nail Onychomycosis Dermatophytosis of nail documented in this encounter [facility] note* Diagnosis Chronic bronchitis, unspecified chronic bronchitis type (HCC)- Primary Chronic rhinitis [facility] - Reported* Type Description Date Medical History Benign essential HTN Surgical History knee surgery Surgical History shoulder surgery Surgical History tonsillectomy and adenoidectomy Surgical History wisdom teeth Surgical History vasectomy Hospitalization History see above [facility] Other History general Narrative - Reported* Type Description Date Medical History Benign essential HTN Medical History High cholesterol Surgical History knee surgery Surgical History shoulder surgery Surgical History tonsillectomy and adenoidectomy Surgical History wisdom teeth Surgical History vasectomy Surgical History stent 2021 Hospitalization History see above [facility] Other Hospital Discharge instructions No data available for this section [facility] [place] Progress note No data available for this section [facility] [place] Summary Purpose Family History No Family History [...] CREATED AUTHOR AUTHOR'S ORGANIZ ATION 07/18/2025 [facility] DATE CREATED AUTHOR AUTHOR'S ORGANIZ ATION 07/19/2025 [facility] DATE CREATED AUTHOR AUTHOR'S ORGANIZ ATION 08/10/2025 [facility] dical Specialists EPIC Care Teams (unrecognized sec tion and content) Slot Machine Department Floorperson Relationship Specialty Start Date End Date Lambert Jose MD [address] [place] [address] PCP - General 06/05/23 Slot Machine Department Floorperson Relationship Specialty Start Date End Date Lambert Jose MD [address] [place] [address] PCP - General 06/05/23 Slot Machine Department Floorperson Relationship Specialty Start Date End Date Lambert Jose MD [address] [place] [address] PCP - General 06/05/23 Slot Machine Department Floorperson Relationship Specialty Start Date End Date Lambert Jose MD [address] [place] [address] PCP - General 06/05/23 Slot Machine Department Floorperson Relationship Specialty Start Date End Date Lambert Jose MD [address] [place] [address] PCP - General 06/05/23 Slot Machine Department Floorperson Relationship Specialty Start Date End Date Lambert Jose MD [address] [place] [address] PCP - General 06/05/23 Slot Machine Department Floorperson Relationship Specialty Start Date End Date Lambert Jose MD [address] [place] [address] PCP - General 06/05/23 Slot Machine Department Floorperson Relationship Specialty Start Date End Date Lambert Jose MD [address] [place] [address] PCP General 06/05/23 FOR RECORDS PERTAINING TO [...] BE BASED ON THE PRIMARY CLINICAL RECORDS. [facility], [facility]. provides no warranty or guarantee of the accuracy or completeness of information in this document.
--- OUTSIDE RECORDS SUMMARY | 2025-08-12 15:57 | XMS_ITS | Encounter Summary ---
Author Organization [facility] Address [address] [place] [address] Care Team Providers Care Behaviorist Name Role Phone Ben Jose MD Primary Care Provider [phone] Encounter Details Date Type Department Care Team (Late st Contact Info) Description 08/04/2025 Bamboo flowsheet [facility] [address] [facility] [address] [place] [phone] Cesar Dunham MD [address] [facility] [address] [place] [address] Social History Tobacco Use Types Packs/Day Years [...] on filedocumented in this encounter Care Teams Behaviorist Relationship Specialty Start Date End Date Ben Jose MD [address] [facility] [place] [address] PCP - General 06/05/23 documented as of this encounter
--- OUTSIDE RECORDS SUMMARY | 2025-08-12 15:57 | XMS_ITS | Encounter Summary ---
Author Organization [facility] Address [address] [place] [address] Care Team Providers Care Brass Pickler Name Role Phone Ben Jose MD Primary Care Provider [phone] Reason for Visit * Reason Comments Med Refill Encounter Details Date Type Department Care Team ([facility] st Contact Info) Description 02/10/2025 Refill [facility] [address] [facility] [address] [place] [phone] Cesar Dunham MD [address] [facility] [address] [place] [address] Severe persistent asthma with (acute) exacerbation (HCC) [...] (HCC) documented in this encounter Care Teams Brass Pickler Relationship Specialty Start Date End Date Ben Jose MD [address] [place] [address] PCP - General 06/05/23 documented as of this encounter
--- OUTSIDE RECORDS SUMMARY | 2025-08-12 15:57 | XMS_ITS | Encounter Summary ---
Author Organization [facility] Address [address] [place] [address] Care Team Providers Care Tennis Instructor Name Role Phone Ben Jose MD Primary Care Provider [phone] Reason for Visit * Reason Comments Med Refill Encounter Details Date Type Department Care Team (Late st Contact Info) Description 03/18/2023 Refill [facility] Cardiology [address] [place] [phone] Alexus Mcarthur, TALENT SCOUT [address] [place] [phone] Social History Tobacco Use Types Packs/Day Years [...] on filedocumented in this encounter Care Teams Tennis Instructor Relationship Specialty Start Date End Date Ben Jose MD [address] [place] [address] PCP - General 11/15/22 documented as of this encounter
--- OUTSIDE RECORDS SUMMARY | 2025-08-12 15:57 | XMS_ITS | Clinical Summary ---
Author Organization [facility] Address [address] [place] [address] Care Team Providers Care Books Binder Name Role Phone Ben Jose MD Primary [...] pulmonary disease) Essential hypertension 08/04/2022 CAD in eek artery 08/03/2022 History of coronary artery stent placement 08/03 Encounters Date Type Department Care Team Description 08/04/2025 4:00 PM EDT Office Visit [facility] [address] [place] [place] [address] Cesar Dunham MD Chronic bronchitis, unspecified chronic bronchitis type (HCC) (Primary Dx); Chronic rhinitis 08/04/2025 Bamboo flowsheet [facility] [address] [place] [address] Cesar Dunham MD 08/04/2025 Travel from Last [...] (#1) 2025 Insurance [employer] Care Teams Books Binder Relationship Specialty Start Date End Date Ben Jose MD [address] [place] [address] PCP - General 06/05/23
--- OUTSIDE RECORDS SUMMARY | 2025-08-12 15:57 | XMS_ITS | Encounter Summary ---
Author Organization [facility] Address [address] [place] [address] Care Team Providers Care Medical Certification Specialist Name Role Phone Chris Martinez MD Primary Care Provider [phone] Ben Jose MD Primary Care Provider [phone] Reason for Visit * Reason Comments Med Refill Encounter Details Date Type Department Care Team (Late st Contact Info) Description 09/29/2022 Refill [facility] Cardiology [address] [place] [address] Alexus Mcarthur, ASSISTANT MAINTENANCE MANAGER [address] [place] [address] Social History Tobacco Use Types [...] on filedocumented in this encounter Care Teams Medical Certification Specialist Relationship Specialty Start Date End Date Chris Martinez MD [address] [address] PCP - General 07/28/22 11/14/22 Ben Jose MD [address] [facility] [place] [id number] PCP - General 11/15/22 documented as of this encounter
--- OUTSIDE RECORDS SUMMARY | 2025-08-12 15:57 | XMS_ITS | Clinical Summary ---
Author Organization [employer] Address [id number] [address] [place] [address] Care Team Providers Care School Cleaner Name Role Phone Ben Jose MD Primary Care Provider [phone] Allergies No known active allergies Medications olmesartan [...] on file Insurance [employer] Care Teams School Cleaner Relationship Specialty Start Date End Date Ben Jose MD PCP - General 03/28/17
--- OUTSIDE RECORDS SUMMARY | 2025-08-12 15:57 | XMS_ITS | Encounter Summary ---
Author Organization [facility] Address [address] [place] [address] Care Team Providers Care Cooler Supervisor Name Role Phone Ben Jose MD Primary Care Provider [phone] Encounter Details Date Type Department Care Team ([facility] Contact Info) Description 06/12/2023 Abstract [facility] [address] [address] [facility] [address] [place] [phone] Cesar Dunham MD [address] [facility] [address] [place] [address] Social History Tobacco Use Types Packs/Day Years [...] on filedocumented in this encounter Care Teams Cooler Supervisor Relationship Specialty Start Date End Date Ben Jose MD [address] [place] [address] PCP - General 06/05/23 documented as of this encounter
--- OUTSIDE RECORDS SUMMARY | 2025-08-12 15:57 | XMS_ITS | Encounter Summary ---
Author Organization [facility] Address [address] [place] [address] Care Team Providers Care Destination Imagination Coordinator Name Role Phone Ben Jose MD Primary [...] on filedocumented in this encounter Care Teams Destination Imagination Coordinator Relationship Specialty Start Date End Date Ben Jose MD [address] [place] [address] PCP - General 06/05/23 documented as of this encounter
--- OUTSIDE RECORDS SUMMARY | 2025-08-12 15:57 | XMS_ITS | Encounter Summary ---
Author Organization [facility] Address [address] [place] [address] Care Team Providers Care Radio Television Technical Director Name Role Phone Ben Jose MD Primary Care Provider [phone] Reason for Visit * Reason Comments Med Refill Encounter Details Date Type Department Care Team ([facility] st Contact Info) Description 09/06/2023 Refill [facility] Heart at [facility] [address] [place] [address] Justino Serna MD [address] [facility] [address] [facility] [place] [address] CAD in [place] artery Social History Tobacco Use Types Packs/Day [...] this encounter Visit Diagnoses Diagnosis CAD in [place] artery documented in this encounter Care Teams Radio Television Technical Director Relationship Specialty Start Date End Date Ben Jose MD [address] [facility] [address] [place], [place] [id number] [phone] PCP - General 11/15/22 documented as of this encounter
[2025-08-12 17:24] LABS: Free T3 1.95 pg/mL (2.18-3.98); Thyroid Stimulating Hormone 0.651 uIU/mL (0.358-3.740)
== END 2025-08-12 15:46 | disposition home or self-care (01) ==
PROVIDERS: PCP Family Medicine; Visit Provider Family Medicine
DX: E03.9 Hypothyroidism, unspecified (principal)
CPT/HCPCS: 36415; 84436; 84443; 84481

== ENCOUNTER 2025-08-20 07:47 | Day surgery (SDC) | payer OTHER, SELFPAY ==
--- OUTSIDE RECORDS SUMMARY | 2025-08-12 14:58 | XMS_ITS ---
Author Organization [facility] [place] Address [address] [place] [address] Care Team Providers Care Hay Chopper Name Role Phone Joe Jose Primary Care Provider REASON FOR VISIT Thyroid labs Medications Medication SIG (Take, Route, Frequency, Duration) Notes Start Date End Date Status Levothyroxine Sodium 50 MCG 1 tablet in the morning on an empty stomach Orally Once a day; Duration: 30 days 08/13/2025 Active Encounters Encounter Location Date Provider Diagnosis [address] [place] [address] 08/12/2025 Joe Jose Hypothyroidism E03.9 Assessments Encounter Date Diagnosis (ICD Code) Assessment Notes Treatment Notes Treatment Clinical Notes Section Notes 08/12/2025 Hypothyroidism (ICD-10 - E03.9) Plan Of Treatment Medication Medication Name Sig Start Date Stop Date Notes Levothyroxine Sodium 50 MCG 1 tablet in the morning on an empty stomach Orally Once a day; Duration: 30 days 08/13/2025 Pending Test Test Name Order Date THYROID PANEL (T4/TSH/FREE T3) Progress Notes * Sajan GRIGSBY SDOB: [birth year] (59 yo M)Acc No.[id number]:08/12/2025 Patient: Sajan MARTIN :1965 A ge:59 Y S ex:Male Address:[address] [place] [address] * Refills Start Levothyroxine Sodium Tablet, 50 MCG, Orally, 30 Tablet, 1 tablet in the morning on an empty stomach, Once a day, 30 days, Refills=11 Subjective: * Chief Complaints: * T hyroid labs * Medical History: * Surgical History: * Hospitalization/Major Diagno stic Procedure: * Medications: Objective: * Vitals: * Physical Examination: Assessment: * Assessment: 1. H ypothyroidism - E03.9 (Primary) Plan: * Treatment: 2. O thers Start Levothyroxine Sodium Tablet, 50 MCG, 1 tablet in the morning on an empty stomach, Orally, Once a day, 30 days, 30 Tablet, Refills 11. * Procedure Codes: * true * Date: Generated for Jose Eduardo camacho/Juan/Chaya on: 07:49 AM EDT
--- NOTE | 2025-08-20 | OP_ITS ---
OPERATION DATE: 08/20/2025 PREOPERATIVE DIAGNOSIS: Anemia, chronic gastroesophageal reflux disease, history of Walker?s esophagus. POSTOPERATIVE DIAGNOSIS: Normal EGD and colonoscopy. PROCEDURE: EGD and colonoscopy to cecum. SURGEON: Lee Hampton M.D. ANESTHESIA: Monitored anesthesia care. ESTIMATED BLOOD LOSS: Zero. INDICATIONS AND CONSENT: Patient is a 59-year-old male recently found to have anemia, iron deficiency. He has chronic GERD as well as a history of Walker?s esophagus. Last EGD and colonoscopy was in 2017. He had a hyperplastic polyp on the colon and evidence of a small segment of Walker?s esophagus. Indications, risks, benefits, alternatives of proceeding with EGD and colonoscopy were explained extensively to the patient, including the risks of bleeding, aspiration, esophageal/gastric/duodenal or colonic perforation or anesthetic complications. All of his questions were answered. Informed consent was obtained. PROCEDURE: Patient brought to the operating room, placed in the left lateral decubitus position. Monitored anesthesia care was provided. Bite block was placed in the patient?s mouth. Scope was inserted into the oropharynx. Under direct visualization, it was advanced. It was advanced into the esophagus, past the cricopharyngeus, down to the stomach. The stomach was insufflated with air. The pylorus was traversed down to the descending portion of the duodenum. There was no evidence of duodenitis or ulceration. There was no scarring within the pyloric channel. There was no evidence of old or new blood. In the antrum, there was no evidence of gastritis or erosions. The scope was retroflexed. There was no significant hiatal hernia. The GE junction was noted at about 40 cm. There was a slight irregularity of the Z-line, but no evidence of Walker?s esophagus or ulceration. The remainder of the esophagus was unremarkable. The scope was then withdrawn. Patient was then positioned for colonoscopy. Rectal exam was performed, which showed no masses or blood. The scope was inserted into the anal canal. Under direct visualization, it was advanced. With the aid of abdominal compression, it was advanced to the cecum where cecal markings were clearly identified. There was noted to be a good prep. There was noted to be redundant colon that was tortuous. Upon withdrawal of the scope, mucosal surfaces were carefully examined. There were no mass lesions or polyps. No inflammatory changes or ulcerations. No significant diverticulosis. The scope was retroflexed in the anal canal. There were some prominent rectal veins, no significant hemorrhoidal disease. The scope was then withdrawn. The patient tolerated procedure well, was sent to recovery room in good condition. Follow up screening colonoscopy should be in 10 years. CC: Alex Ferris
--- OUTSIDE RECORDS SUMMARY | 2025-08-20 07:50 | XMS_ITS | Encounter Summary ---
Author Organization [facility] Address [address] [place] [address] Care Team Providers Care Tax Appraiser Name Role Phone Chris Martinez MD Primary Care Provider [phone] Ben Jose MD Primary Care Provider [phone] Reason for Visit * Reason Comments Med Refill Encounter Details Date Type Department Care Team (Late st Contact Info) Description 09/29/2022 Refill [facility] Cardiology [address] [place] [phone] Alexus Mcarthur, [place] SHERIFF [address] [place] [address] Social History Tobacco Use Types [...] on filedocumented in this encounter Care Teams Tax Appraiser Relationship Specialty Start Date End Date Chris Martinez MD [address] [address] PCP - General 07/28/22 11/14/22 Ben Jose MD [address] [facility] [place] [phone] PCP - General 11/15/22 documented as of this encounter
--- OUTSIDE RECORDS SUMMARY | 2025-08-20 07:50 | XMS_ITS | Encounter Summary ---
Author Organization [facility] Address [address] [place] [address] Care Team Providers Care Flash Designer Name Role Phone Ben Jose MD Primary Care Provider [phone] Reason for Visit * Reason Comments Med Refill Encounter Details Date Type Department Care Team (Late st Contact Info) Description 03/18/2023 Refill [facility] Cardiology [address] [place] [phone] Alexus Mcarthur, INTERNAL SALESPERSON [address] [place] [address] Social History Tobacco Use Types Packs/Day Years Used Date Smoking Tobacco: Former Cigarettes 2 - 2011 Smokeless Tobacco: Former Quit: 2002 [...] on filedocumented in this encounter Care Teams Flash Designer Relationship Specialty Start Date End Date Ben Jose MD [address] [place] [address] PCP - General 11/15/22 documented as of this encounter
--- OUTSIDE RECORDS SUMMARY | 2025-08-20 07:50 | XMS_ITS | Clinical Summary ---
Author Organization [facility] Address [address] [place] [address] Care Team Providers Care Inspector Timers Name Role Phone Ben Jose MD Primary Care Provider [phone] Allergies No known active allergies Medications carvedilol (Coreg) 12.5 mg tablet Take 12.5 mg by mouth with breakfast and with evening meal. Active doxazosin (Cardura) 4 mg tablet Take 4 mg by mouth at bedtime. Active fenofibrate (Tricor) 145 mg tablet Take 145 mg by mouth in the morning. Active aspirin 81 mg chewable tabletIndications :CAD in [place] artery CHEW AND SWALLOW 1 TABLET IN THE MORNING 90 tablet 3 3 Active diclofenac (Voltaren) 50 mg EC tablet Take 50 mg by mouth twice a day. Active FeroSuL 325 mg (65 mg iron) tablet Take 1 tablet by mouth in the morning and at bedtime. 4 Active atorvastatin (Lipitor) 80 mg tabletIndications :CAD in [place] artery TAKE 1 TABLET AT BEDTIME 90 tablet 3 4 Active clopidogrel (Plavix) 75 mg tabletIndications :CAD in [place] artery TAKE 1 TABLET IN THE MORNING [...] eluting coronary stent placement 2021 CAD in [place] artery 08/03/2022 Chest pain 07/14/2022 Overview (07/14/2022): Added automatically from request for surgery [id number] Dyspnea 06/07/2022 05/29/2023 Shortness of breath 11/22/2018 05/29/2023 Hyperplastic polyp of intestine 05/03/2017 05/29/2023 Encounters Date Type Department Care Team Description 07/10/2025 1:40 PM EDT Follow-Up [address] [address] Ivet Jane CNP CAD in [place] artery (Primary Dx); VILLAVICENCIO (dyspnea on exertion); Non-cardiac chest pain; History of coronary artery stent placement; Benign hypertensive heart disease without congestive heart failure; Mixed hyperlipidemia; Pulmonary emphysema, unspecified emphysema type (CMS/HCC) 06/26/2025 Results Follow-Up [facility] [address] [place] [address] Ivet Jane CNP Complete Echo (TTE) w/wo Imaging Agent, Strain, 3D, Bubble Study 06/26/2025 Orders Only [facility] [address] [place] [address] Provider, MD Citlali 06/12/2025 12:30 PM EDT - 06/12/2025 1:45 PM EDT Surgery [facility] [address] [place] [address] Arturo Yu MD Coronary angiography 06/12/2025 10:51 AM EDT - 06/12/2025 3:50 PM EDT Hospital Encounter [facility] [address] [place] [address] Arturo Yu MD CAD in [place] artery (Primary Dx); Chest pain, unspecified type; VILLAVICENCIO (dyspnea on exertion) Discharge Disposition: Home or Self Care (01) 06/12/2025 Travel 06/09/2025 Travel 06/06/2025 Orders Only [place] [address] [place] [address] Karime De Souza MA Encounter for pre-operative examination (Primary Dx); VILLAVICENCIO (dyspnea on exertion) 06/06/2025 Orders Only [place] [address] [place] [address] Karime De Souza MA Chest pain, unspecified type (Primary Dx); VILLAVICENCIO (dyspnea on exertion) 06/05/2025 3:20 PM EDT Office Visit [place] [address] [place] [address] Ivet Jane CNP Coronary artery disease of [place] artery of [place] heart with stable angina pectoris (Primary Dx); Shortness of breath; History of coronary artery stent placement; VILLAVICENCIO (dyspnea on exertion); Mixed hyperlipidemia; Benign hypertensive heart disease without congestive heart failure; Pulmonary emphysema, unspecified emphysema type (CMS/HCC) 06/05/2025 Refill [facility] [address] [place] [address] Karon Silvestre MA from Last 3 Months [...] Date Last Done Comments CT Colonography 1963 Diabetes: Hemoglobin A1C 1963 FIT-DNA 1963 FIT 1963 FOBT 1963 Sigmoidoscopy 1963 Diabetes: Retinopathy Screening 1973 Depression Screening 1975 Diabetes: Urine Protein Screening 1982 Pneumococcal Vaccine: Pediatrics (0 to 5 Years) and At-Risk Patients (6 to 64 Years) (1 of 2 - PCV) 1982 Zoster Vaccines (1 of 2) 2013 COVID-19 Vaccine (4 - season) 2025 10/25/2021, 02/16/2021, 01/19/2021 Influenza Vaccine (#1) 2025 Colonoscopy 04/26/2027 04/26/2017 Colorectal Cancer Screening 04/26/2027 Adult Tetanus 04/30/2029 04/30/2019, 04/06, 05/15/2013, Additional [...] this topic Medical Devices Implanted Type Area Ordained Minister Device Identifier Shelf Expiration Date Model / Serial / Lot Stent,Synergy Mr 3.50 X 38 - [id number] Implanted:Qty: 1 on 08/03/2022 by Justino Serna MD at [facility] Drug Eluting Stent qLearning [id number] 04/12/2024 [id number] / / [id number] Procedures Procedure Name Priority Date/Time Associated Diagnosis [...] AM EDT) Anatomical Region Laterality Modality Ultrasound Historical Provider CV ECHO PROCEDURES Final Result [...] informed consent. 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 The right neck area was prepped and draped in usual fashion. Micropuncture technique was used for access under ultrasound guidance into the right internal jugular vein. A 6-Tongan x 11 cm sheath was placed. A 6-Tongan Lovett catheter was used for right heart catheterization and measurement of pressures and calculation of cardiac output using the estimated Sydnie method. Lovett catheter was removed. The left wrist area was prepped and draped in usual fashion. Micropuncture technique was used for access in the radial artery. A 6-Tongan x 11 cm sheath was placed. Verapamil was given through the sheath, and heparin was administered intravenously. Bilateral selective coronary angiography was then performed using 6-Tongan JL4 diagnostic catheter for engagement of the left coronary artery and 6-Tongan JR4 diagnostic catheter for engagement of the [...] on exertion) [R06.09], Coronary artery disease involving [place] coronary artery of [place] heart with other form of angina pectoris [I25.118] Ivet Jane [facility] CV CARDIAC CATH PROCEDURES Fi nal Result * (ABNORMAL) POC Hb02% (06/12/2025 1:26 PM EDT) OQBROC35% 64.1(A) 90 - 95 % QC Pass/Fail Passed QC LOT # [id number] QC Expiration Date 73,126 SAMPLESITE nl Blood Venous blood specimen / Unknown 06/12/2025 1:26 PM EDT Narrative Wilfred Aguiar, [place] - 06/13/2025 6:42 AM EDT Oper [id number] Arturo Yu MD POINT OF CARE TEST ENTER/ALCON T ORDERABLES Final Result * Electrocardiogram, 12-lead (06/12/2025 11:33 AM EDT) Ventricular Rate 53 BPM GE MUSE Atrial Rate 53 BPM GE MUSE TX Interval 156 ms GE MUSE QRS DURATION 100 ms GE MUSE QT Interval 436 ms GE MUSE QTC CALCULATION(BAZE TT) 409 ms GE MUSE P [place] 78 degrees GE MUSE R-[place] 1 degrees GE MUSE T Wave [place] 57 degrees GE MUSE 06/12/2025 11:2 4 [...] lead unit performed (06/05/2025 3:32 PM EDT) vIet Jane CNP ECG ORDERABLES Final Result from Last 3 Months Insurance [employer] Advance Directives * Full Code (Latest Code Status on File) Date Activated Date Inactivated Comments 08/03/2022 12:28 PM 08/04/2022 1:04 PM Care Teams Inspector Timers Relationship Specialty Start Date End Date Ben Jose MD [address] [facility] [place] [address] PCP - General 11/15/22
--- OUTSIDE RECORDS SUMMARY | 2025-08-20 07:50 | XMS_ITS | Clinical Summary ---
Author Organization [facility] Address [address] [place] [address] Care Team Providers Care Leader Assembler Name Role Phone Ben Jose MD [...] pulmonary disease) Essential hypertension 08/04/2022 CAD in [place] artery 08/03/2022 History of coronary artery stent placement 08/03 Encounters Date Type Department Care Team Description 08/04/2025 4:00 PM EDT [facility] [address] [place] [address] [place] [address] Cesar Dunham MD Chronic bronchitis, unspecified chronic bronchitis type (HCC) (Primary Dx); Chronic rhinitis 08/04/2025 Bamboo flowsheet [facility] [address] [place] [address] [place] [address] Cesar Dunham MD 08/04/2025 Travel from Last [...] (#1) 2025 Insurance [employer] Care Teams Leader Assembler Relationship Specialty Start Date End Date Ben Jose MD [address] [place] [address] PCP - General 06/05/23
--- OUTSIDE RECORDS SUMMARY | 2025-08-20 07:50 | XMS_ITS | Encounter Summary ---
Author Organization [facility] Address [address] [place] [address] Care Team Providers Care Roll Plugger Name Role Phone Ben Jose MD Primary Care Provider [phone] Encounter Details Date Type Department Care Team (Late st Contact Info) Description 06/26/2025 Results [facility] at [facility] [address] [place] [address] Ivet Jane, PORTABLE SAWYER [address] [place] [address] Complete Echo (TTE) w/wo Imaging Agent, Strain, 3D, Bubble Study Social History Tobacco Use Types Packs/Day Years Used Date Smoking Tobacco: Former Cigarettes 12 05 1 982 - 2011 Passive Smoke Exposure: Past Smokeless Tobacco: Former Quit: 2001 Alcohol Use Standard Drinks/Week Comments Not Currently 0 (1 standard drink = 0.6 oz pur e alcohol) [place] Safety & Environment Answer Date Rec orded [...] see pulmonary. Will he see someone in [place]? documented in this encounter Plan of Treatment Not on file documented as of this encounter Visit Diagnoses Not on filedocumented in this encounter Care Teams Roll Plugger Relationship Specialty Start Date End Date Ben Jose MD [address] [facility] [place] [phone] PCP - General 11/15/22 documented as of this encounter
--- OUTSIDE RECORDS SUMMARY | 2025-08-20 07:50 | XMS_ITS | Encounter Summary ---
Author Organization [facility] Address [address] [place] [address] Care Team Providers Care Lpn Medical Assistant Name Role Phone Ben Jose MD Primary Care Provider [phone] Reason for Visit * Reason Comments Med Refill Encounter Details Date Type Department Care Team ([facility] st Contact Info) Description 09/06/2023 Refill [facility] Heart at [facility] [address] [place] [address] Justino Serna MD [address] [facility] [address] [facility] [place] [address] CAD in [place] artery Social History Tobacco Use Types Packs/Day [...] this encounter Visit Diagnoses Diagnosis CAD in [place] artery documented in this encounter Care Teams Lpn Medical Assistant Relationship Specialty Start Date End Date Ben Jose MD [address] [facility] [address] [place], [place] [address] [phone] PCP - General 11/15/22 documented as of this encounter
--- OUTSIDE RECORDS SUMMARY | 2025-08-20 07:50 | XMS_ITS | Encounter Summary ---
Author Organization [facility] Address [address] [place] [address] Care Team Providers Care Block Inspector Name Role Phone Bne Jose MD Primary Care Provider [phone] Reason for Visit * Reason Comments Med Refill Encounter Details Date Type Department Care Team ([facility] st Contact Info) Description 02/10/2025 Refill [facility] [address] [facility] [address] [place] [address] Cesar Dunham MD [address] [facility] [address] [place] [address] Severe persistent asthma with (acute) exacerbation (HCC) [...] (HCC) documented in this encounter Care Teams Block Inspector Relationship Specialty Start Date End Date Ben Jose MD [address] [facility] [place] [address] PCP - General 06/05/23 documented as of this encounter
--- OUTSIDE RECORDS SUMMARY | 2025-08-20 07:50 | XMS_ITS | Encounter Summary ---
Author Organization [facility] Address [address] [place] [address] Care Team Providers Care Event Mgr Name Role Phone Ben Jose MD Primary Care Provider [phone] Encounter Details Date Type Department Care Team ([facility] Contact Info) Description 06/12/2023 Abstract [facility] [address] [facility] [address] [place] [address] Cesar Dunham MD [address] [facility] [address] [place] [address] Social History Tobacco Use Types Packs/Day Years [...] on filedocumented in this encounter Care Teams Event Mgr Relationship Specialty Start Date End Date Ben Jose MD [address] [place] [address] PCP - General 06/05/23 documented as of this encounter
--- OUTSIDE RECORDS SUMMARY | 2025-08-20 07:50 | XMS_ITS | Patient Health Record ---
Author Organization [facility] in [place] Address [address] [place] [address] Care Team Providers Care Ignition Mechanic Name Role Phone Joe Mack Primary Care Provider Allergies No Known Allergies Results Component Value Reference Range Notes Salmonella/Shigella Screen Reviewed date:05/24/2025 03:45:05 PM Interpretation: Performing Lab: Notes/Report: [facility] , Salmonella/Shigella Screen See Below For Report Salmonella/Shigella Screen Salmonella/Shigella Screen No Salmonella or Shigella recovered. Salmonella/Shigella Screen Performing Lab: see note - [facility] LB E coli Shiga Toxin EIA Reviewed date:05/24/2025 03:45:05 PM Interpretation: Performing Lab: Notes/Report: [facility] , E coli Shiga Toxin EIA See Below For Report E coli Shiga Toxin EIA E coli Shiga Toxin EIA Negative E coli Shiga Toxin EIA E coli Shiga Toxin EIA Performed at: [facility] E coli Shiga Toxin EIA E coli Shiga Toxin EIA [address] [place], [place] [id number] E coli Shiga Toxin EIA E coli Shiga Toxin EIA Highway Painter Helper: Marv Cartagena PhD, Phone: [phone] E coli Shiga Toxin EIA Performing Lab: see note LC - [facility] LB SEE REPORT - Pipe Assembly Worker Id information not found for OBX-specific international editorial producer legend FREE T3 Reviewed date:06/11/2025 12:51:27 PM Interpretation: Performing Lab: Notes/Report: [facility] , Free T3 2.12 2.18-3.98 pg/mL Performing Lab: see note ML - [facility] LB PROF CHEM 8 (BAS METB) Reviewed date:06/11/2025 12:51:27 PM Interpretation: Performing Lab: Notes/Report: [facility] , Sodium 141 136-145 mmol/L Potassium 3.8 [...] mg/dL Performing Lab: see note ML - [facility] T4 Reviewed date:06/11/2025 12:51:27 PM Interpretation: Performing Lab: Notes/Report: [facility] , T4 Thyroxine 6.10 4.50-12.10 ug/dL Performing Lab: see note ML - [facility] LB TSH Reviewed date:06/11/2025 12:51:28 PM Interpretation: Performing Lab: Notes/Report: [facility] , Thyroid Stimulating Hormone 1.644 0.358-3.740 uIU/mL Performing Lab: see note ML - [facility] CA echo doppler complete Reviewed date:06/25/2025 07:16:01 PM Interpretation: Performing Lab: Notes/Report: Source Facility: [facility]-[address] [place] [address] [place] [address] Cardiology Report Signed Patient: SAJAN GRIGSBY MR#: [id number] : 1965 Acct:[id number] Age/Sex: 59 / M ADM Date: 06/25/25 Loc: CARD Attending Dr: ISAAC TANG APRN Ordering Physician: ISAAC TANG APRN Date of Service: 06/25/25 Procedure(s): CA echo doppler complete Accession Number(s): [id number] cc: Ben Mack M.D.; ISAAC TANG APRN Patient Name: SAJAN GRIGSBY MR#: [id number] : 1965 Exam Date: 06/25/2025 Ordering Doctor: [...] Area (VTI): 3.21 cm2, 3.21 cm2 Deceleration [place]: 1.06 m/s2 Pressure Half-Time: 907.43 ms Peak [...] YU Signed By: 06/25/251816 DD/ 15 TD/TT: Psych Social Worker: MITCHELL Mueller Reviewed date:07/10/2025 04:51:39 PM Interpretation: Performing Lab: Notes/Report: [facility] , Free T3 1.89 2.18-3.98 pg/mL Performing Lab: see note ML - [facility] LB T4 Reviewed date:07/10/2025 04:51:39 PM Interpretation: Performing Lab: Notes/Report: [facility] , T4 Thyroxine 4.90 4.50-12.10 ug/dL Performing Lab: see note ML - [facility] LB TSH Reviewed date:07/10/2025 04:51:39 PM Interpretation: Performing Lab: Notes/Report: [facility] , Thyroid Stimulating Hormone 0.731 0.358-3.740 uIU/mL Performing Lab: see note ML - [facility] LB FREE T3 Reviewed date:08/12/2025 07:00:06 PM Interpretation: Performing Lab: Notes/Report: [facility] , Free T3 1.95 2.18-3.98 pg/mL Performing Lab: see note ML - [facility] LB T4 Reviewed date:08/12/2025 07:00:06 PM Interpretation: Performing Lab: Notes/Report: [facility] , T4 Thyroxine 4.20 4.50-12.10 ug/dL Performing Lab: see note ML - [facility] LB TSH Reviewed date:08/12/2025 07:00:06 PM Interpretation: Performing Lab: Notes/Report: [facility] , Thyroid Stimulating Hormone 0.651 0.358-3.740 uIU/mL Performing Lab: see note ML - [facility] LB CBC AUTO DIFF Reviewed date:06/11/2025 12:51:27 PM Interpretation: Performing Lab: Notes/Report: [facility] , White Blood Count 5.8 4.0-11.0 10 [...] 10 3/uL Performing Lab: see note - [facility] LB Campylobacter Culture Reviewed date:05/24/2025 03:45:05 PM Interpretation: Performing Lab: Notes/Report: [facility] , Campylobacter Culture See Below For Report Campylobacter Culture No Campylobacter species isolated. Performing Lab: see note - [facility] LB E coli Shiga Toxin EIA Reviewed date:05/21/2025 08:24:52 PM Interpretation: Performing Lab: Notes/Report: [facility] , E coli Shiga Toxin EIA See Below For Report E coli Shiga Toxin EIA E coli Shiga Toxin EIA Negative E coli Shiga Toxin EIA E coli Shiga Toxin EIA Performed at: [facility] E coli Shiga Toxin EIA E coli Shiga Toxin EIA [address] [place], [place] [id number] E coli Shiga Toxin EIA E coli Shiga Toxin EIA Highway Painter Helper: Marv Cartagena PhD, Phone: [phone] E coli Shiga Toxin EIA Performing Lab: see note - [facility] LB SEE REPORT - Pipe Assembly Worker Id information not found for OBX-specific international editorial producer legend C. Difficile PCR Reviewed date:05/18/2025 04:45:05 PM Interpretation: Performing Lab: Notes/Report: [facility] , C. Difficile PCR POSITIVE RESULTS ERICH LED TO DR. MACK Performing Lab: see note - [facility] LB TSH Reviewed date:05/15/2025 07:12:38 PM Interpretation: Performing Lab: Notes/Report: [facility] , Thyroid Stimulating Hormone 1.654 0.358-3.740 uIU/mL Performing Lab: see note ML - [facility] LB T4 Reviewed date:05/15/2025 07:12:38 PM Interpretation: Performing Lab: Notes/Report: [facility] , T4 Thyroxine 6.10 4.50-12.10 ug/dL Performing Lab: see note ML - [facility] LB PSA Reviewed date:05/15/2025 07:12:38 PM Interpretation: Performing Lab: Notes/Report: [facility] , Prostate Specific Antigen Dx 1.21 <=4.00 ng/mL Performing Lab: see note ML - [facility] LB FREE T3 Reviewed date:05/15/2025 07:12:38 PM Interpretation: Performing Lab: Notes/Report: [facility] , Free T3 1.31 2.18-3.98 pg/mL Performing Lab: see note ML - [facility] LB PROF 14(COMP METB) Reviewed date:04/24/2025 07:09:42 PM Interpretation: Performing Lab: Notes/Report: [facility] , Sodium 141 136-145 mmol/L Potassium 4.3 [...] Performing Lab: see note ML - [facility] LB LIPID PROFILE Reviewed date:04/24/2025 07:09:42 PM Interpretation: Performing Lab: Notes/Report: [facility] , Triglycerides 206 <=150 mg/dL Cholesterol 84 [...] RISK Performing Lab: see note ML - [facility] LB CBC AUTO DIFF Reviewed date:04/24/2025 07:09:42 PM Interpretation: Performing Lab: Notes/Report: [facility] , White Blood Count 7.1 4.0-11.0 10 [...] Performing Lab: see note ML - [facility] LB Reason For Referral Diagnosis 1 Anemia (D64.9) Referral Organization [facility] Referring Provider First Name Joe Referring Provider Last Name Connerherman Referring Provider Speciality Family Med [place] Referred [...] TAKE 1 TABLET TWICE A DAY Active Levothyroxine Sodium 50 MCG 1 tablet in the morning on an empty stomach Orally Once a day; Duration: 30 days 08/13/2025 Active Viagra 100 MG 1 tablet as [...] Status Risk Notes Problem Morbid obesity (disorder) (209176664) Morbid (severe) obesity due to excess calories (E66.01) Active confirmed Problem Hypermetropia (68815151) Hypermetropia, bilateral (H52.03) Active confirmed Problem Presbyopia (96326763) Presbyopia (H52.4) Active confirmed Problem Sudden visual loss (32827406) Sudden visual loss, right eye (H53.131) Active confirmed Problem Centrilobular emphysema (48071759) Centrilobular emphysema (J43.2) Active confirmed Problem Uncomplicated moderate persistent asthma (718164821) Moderate persistent asthma, uncomplicated (J45.40) Active confirmed Problem Inflammatory dermatosis (159836627) Other specified dermatitis (L30.8) Active confirmed Problem Joint pain (12857294) Pain in un specified joint (M25.50) Active confirmed Problem Localized swelli ng, mass and lump, right lower limb (R22.41) Active confirmed Problem Angioneurotic edema (72735064) Angioneurotic edema, initial encounter (T78.3XXA) Active confirmed Problem Long-term current us e of inhaled steroid (103526531) terminal supervisor (current) use of inhaled steroids (Z79.51) Active confirmed Problem Chest pain (97458675) Chest pain (R07.9) Active confirmed Problem Hypertension (42045371) Hypertension (I10) Active confirmed Problem Male hypogonadism (51815347) Hypogonadism male (E29.1) Active confirmed Problem Cervical radiculopathy (55155029) Cervical radiculopathy (M54.12) Active confirmed Problem Hypothyroidism (27249023) Hypothyroidism (E03.9) Active confirmed Problem Coronary artery disease (72449012) Coronary artery disease (I25.10) Active confirmed Problem Anemia (313605730) Anemia (D64.9) Active confir med Problem Dyspnea (475291146) Dyspnea (R06.00) Active con firmed Problem Sleep apnea (74038218) Sleep apnea (G47.30) Active confirmed Problem Obstructive sleep apnea (52042363) Obstructive sleep apnea (G47.33) Active confirmed Problem Malaise (100134949) Malaise (R53.81) Active con firmed Problem 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 Problem Hypertriglyceridemia (928239942) Hypertriglyceridemi a (E78.1) Active confirmed Problem Arthralgia (95457873) Arthralgia (M25.50) Active confirmed Problem Well adult (981021244) Well adult (Z00.00) Active confirmed Problem Irritable bowel syndrome (78703108) Irritable bowel syndrome (K58.9) Active confirmed Problem Cervical disc diseas e (040699581) Cervical disc disease (M50.90) Active confirmed Problem Near syncope (220566643) Near syncope (R55) Active confirmed Problem Overweight (432957284) Over weight (E66.3) Active confirmed Problem Essential tremor (904462079) Benign essential tremor (G25.0) Active confirmed Problem Increased immunoglobulin (390850014) Elevated IgE level (R76.8) Active confirmed Problem Ex-tobacco user (finding) (169918833) History of tobacco abuse (Z87.891) Active confirmed 27 pack-yea r history Problem Mass of neck (346446599) Mass in neck (R22.1) Active confirmed Problem Umbilical hernia (367181966) Hernia, umbilical (K42.9) Active confirmed Problem Chronic obstructive pulmonary disease (12758781) COPD, moderate (J44.9) Active confirmed Problem Acute exacerbation o f chronic obstructive airways disease (155107080) Acute exacerbation of chronic obstructive airways disease (J44.1) Active confirmed Problem Otitis media (88102831) Unspecified otitis media (H66.90) Active confirmed Problem Hypertensive retinopathy (6187204) Hypertensive retinopathy (H35.039) Active confirmed Problem Essential hypertension (05387168) Essential Hypertension (I10) Active confirmed Problem Carpal tunnel syndrome (57830781) Carpal tunnel syndrome, bilateral upper limbs (G56.03) Active confirmed Problem History of headache (883788686) H/O headache (Z87.898) Active confirmed Problem Secondary pulmonary hypertension (66259353) Other secondary pulmonary hypertension (I27.29) Active confirmed Problem Disorder of pharynx (54153178) Disorder of pharynx (J39.2) Active confirmed Problem Oropharyngeal lesion (70573204315424) Oropharyngeal lesion (J39.2) Active confirmed Problem History of COVID-19 (119746224768461780) History of COVID-19 (Z86.16) Active confirmed 06/11/2022 Problem Low back pain (536395929) Low back pain, unspecified (M54.50) Active confirmed Vital Signs Temperature 99.0 degrees Fahrenheit 04/10/2025 Blood pressure diastolic 62 mm Hg 05/22/2025 Height 67 in 05/22/2025 Blood pressure systolic 118 mm Hg 05/22/2025 Weight 253 lbs 05/14/2025 BMI 39.62 kg/m2 05/14/2025 Encounters Encounter Location Date Provider Diagnosis [facility] [address] [place] [address] 04/10/2025 Joe Hoy Acute bronchitis, unspecified organism J20.9 [facility] [address] [place] [address] 05/14/2025 Joe Hoy Gastroenteritis K52. 9 [facility] [address] [facility] [place] [address] 04/16/2025 Joe herman [facility] [address] [facility] [place] [address] 04/16/2025 Joe Prietoy [facility] [address] [place] [address] 04/24/2025 Joe Mack [facility] [address] [facility] [place] [address] 05/15/2025 Oje Hoy Hypothyroidism E03.9 [facility] [address] [facility] [place] [address] 05/18/2025 Joe herman [facility] [address] [facility] [place] [address] 05/18/2025 Joe [facility] [address] [facility] [place] [address] 05/18/2025 Joe Mack [facility] [address] [facility] [place] [address] 05/21/2025 Joe Prietoy [facility] [address] [facility] [place] [address] 05/22/2025 Joe herman [facility] [address] [facility] [place] [address] 05/24/2025 Joe Mack [facility] [address] [facility] [place] [address] 06/11/2025 Joe Hoy Hypothyroidism E03.9 and Anemia D64.9 [facility] [address] [place] [address] 06/18/2025 Joe [facility] [address] [facility] [place] [address] 07/10/2025 Joe Hoy Hypothyroidism E03.9 [facility] [address] [facility] [place] [address] 08/12/2025 Joe Hoy Hypothyroidism E03.9 [facility] [address] [facility] [place] [address] 05/22/2025 Joe Mack Hypertension I10 Assessments Encounter Date Diagnosis (ICD Code) Assessment Notes Treatment Notes Treatment Clinical Notes Section Notes 04/10/2025 Acute bronchitis, unspecified organism (ICD-10 - J20.9) Rest and drink more liquids, especially water. You may use a humidifier or vaporizer to help keep the drainage moist. Cfdb-zfq-ikhidui Nasal Saline may help the stuffy and runny nose. Use Ibuprofen and or Tylenol as needed for fever, chills, body aches or pain. Children 5 years old should not be given llna-ifw-eetijft cough and cold medications such as guaifenesin and dextromethorphan. If you're over age 5, you may try rbzo-gii-byxnirq cold medications such as guaifenesin and dextromethorphan, [...] East back into eating by eating bland, wmcd-kn-vjnkgg foods like crackers, toast, gelatin, bananas, rice and chicken. Try to avoid foods/substances including dairy products, caffeine, alcohol, nicotine and fatty or highly seasoned foods. Medications such as ibuprofen or tylenol can make your stomach more upset, so use sparingly if at all. Also avoid yzxa-jjn-zxdfwri anti-diarrheal medications because it can make it harder for your body to eliminate the virus. 05/22/2025 Hypertension (ICD-10 - I10) 05/15/2025 Hypothyroidism (ICD-10 - E03.9) 06/11/2025 Hypothyroidism (ICD-10 - E03.9) 06/11/2025 Anemia (ICD-10 - D64.9) 07/10/2025 Hypothyroidism (ICD-10 - E03.9) 08/12/2025 Hypothyroidism (ICD-10 - E03.9) Plan Of [...] Date MMO [employer] [address] [place] [address] [id number] Kayla Grigsby Spouse - patient is the [...] tremor G25.0 Arthralgia M25.50 Oropharyngeal lesion J39.2 Walkre esophagus K22.70 Near syncope R55 Disorder of pharynx J39.2 Mass in neck R22.1 Hypertensive retinopathy H35.039 Hypermetropia, bilateral H52.03 Presbyopia H52.4 Hernia, umbilical K42.9 Essential Hypertension I10 Centrilobular emphysema J43.2 Coronary artery disease I25.10 Elevated IgE level R76.8 History of COVID-19 Z86.16 History of tobacco abuse Z87.891 Moderate persistent asthma, uncomplicate d J45.40 Obstructive sleep apnea G47.33 Other secondary pulmonary hypertension I 27.29 terminal supervisor (current) use of inhaled stero ids Z79.51 Surgical History Surgery Date(Month/Year) hernia repair bilat rotator cuff repair torn meniscus repair bilat
--- OUTSIDE RECORDS SUMMARY | 2025-08-20 07:50 | XMS_ITS | Clinical Summary ---
Author Organization [employer] Address [id number] [address] [place] [address] Care Team Providers Care Water Tester Name Role Phone Ben Jose MD Primary Care Provider [phone] Allergies No known active allergies Medications olmesartan [...] on file Insurance [employer] Care Teams Water Tester Relationship Specialty Start Date End Date Ben Jose MD PCP - General 03/28/17
--- OUTSIDE RECORDS SUMMARY | 2025-08-20 07:51 | XMS_ITS | CCD ---
Author Organization [facility] Care Team Providers Care Quill Worker Name Role Phone Dimple Milligan Unavailable YolandaEmma [...] Unavailable HOY ., DR VERDIN Admitting Unavailable [place], DR PADMINI [employer] Unavailable HOY ., [...] Unavailable Lambert Jose MD Primary Care Provider [phone] Lambert Jose MD Primary Care Provider [phone] Lambert Jose Primary Care Physician HERACLIO [...] Medication Allergies] Propensity to adverse reactions (disorder) [facility] Repository Medications Current Medications Medication Drug Class(es) [...] disease (20 sources) Atherosclerotic heart disease of [place] coronary artery without angina pectoris; Translations: [Coronary [...] Episodic Other aftercare (1 source) Other terminal operator (current) drug therapy; Translations: [OTH CALTRANS EQUIPMENT OPERATOR CURRENT DRUG THERAPY] Onset: 03-18-2023 Episodic Other aftercare (1 source) terminal operator (current) use of aspirin; Translations: [CALTRANS EQUIPMENT OPERATOR CURRENT USE OF ASPIRIN] Onset: 02-27-2023 [...] signed up for this yet, please contact [employer] at [phone] to get signed up today. Language Information Language assistance services are available as needed. Normal [facility] Follow-Upon 07-10-2025 Follow-Up [id number] Jada Grigsby 1965 M Date Provider Department Center 07/10/2025 [id number] TANG GENNARO Buck Family History Problem Relation Age of Onset Heart failure Father Coronary artery disease Father Family Status - Relation Status Age at Mother Father Level of Service:47520 [place] OFFICE/OUTPATIENT ESTABLISHED MOD MDM 30 MIN Reason for Visit and Comments: Coronary Artery Disease [187] Hypertension [586287] 1 month follow up [Other] - S/P right/left heart cath Echo done 3 weeks ago at [facility] [Other] Stent placement 2021 [Other] - Stent placement 2021 Shortness of Breath [889113] - SOB and VILLAVICENCIO Normal [facility] Orders Onlyon 06-26-2025 Orders Only [id number] Jada Grigsby 1965 M Date Provider Department Center 06/26/2025 [id number], HISTORICAL GENNARO Buck Family History Problem Relation Age of Onset Heart failure Father Coronary artery disease Father Family Status - Relation Status Age at Mother [facility] reviewed. The janna garcia was examined and there are no changes to the H&P. Will proceed with coronary angiography and right heart catheterization for further evaluation of his symptoms. Consent for blood products obtained. Risks, benefits, and alternatives to procedure discussed with patient in detail who expressed understanding and agreed to proceed. [facility] NURSNOTEon 06-12-2025 NURSNOTE RN educated pt [...] off of unit with all of belongings. [facility] Orders Onlyon 06-06-2025 Orders Only [id number] PetrJada Juan 1965 M Date Provider Department Center 06/06/2025 ATUL DIETZ [facility] Family History Problem Relation Age of Onset Heart failure Father Coronary artery disease Father Family Status - Relation Status Age at Mother [facility] SUBJECTIVE Chief Complaint Patient presents with [...] and chest pain with exertion. 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 or get up into his [...] Problem List Diagnosis Chest pain CAD in [place] artery Essential hypertension COPD (chronic obstructive pulmonary disease) (CMS/[facility]) S/P drug eluting coronary stent placement Hyperplastic polyp of intestine Dyspnea Shortness of breath Severe persistent asthma with acute exacerbation ([facility]/HCC) Degeneration of intervertebral disc of cervical region Other cervical disc displacement at C6-C7 level Radiculopathy, cervical region Spinal stenosis, cervical region Hypertensive retinopathy Umbilical hernia VILLAVICENCIO (dyspnea on exertion) Past Medical History: Diagnosis Date COPD (chronic obstructive pulmonary disease) (CMS/[facility]) Coronary artery disease Hyperlipidemia Hypertension Sleep [...] is w (more content not included)... Normal [facility] Office Visiton 06-05-2025 Follow-up visit [id number] Jada Grigsby S 1965 M Date Provider Department Center 06/05/2025 ISAAC TELLEZ Family History Problem Relation Age of Onset Heart failure Father Coronary artery disease Father Family Status - Relation Status Age at Mother Father Level of Service:18485 [place] OFFICE/OUTPATIENT ESTABLISHED MOD MDM 30 MIN Reason for Visit and Comments: Chest Pain [074119] Coronary Artery Disease [187] Normal [facility] Orders Onlyon 04-25-2025 Orders Only [id number] Jada Grigsby S 1965 M Date Provider Department Center 04/25/2025 DAMIAN VARGAS Family History Problem Relation Age of Onset Heart failure Father Coronary artery disease Father Family Status - Relation Status Age at Mother Father Normal [facility] Office Visiton 04-18-2025 Follow-up visit [id number] Mando Grigsbyanjel Juan 1965 M Date Provider Department Center 04/18/2025 DAMIAN VARGAS Family History Problem Relation Age of Onset Heart failure Father Coronary artery disease Father Family Status - Relation Status Age at Mother Father Level of Service:11005 [place] OFFICE/OUTPATIENT ESTABLISHED MOD [facility] 30 MIN Normal [facility] MR KNEE LEFT WO IV CONTRASTo [...] knee with age indeterminate metallic foreign body. [facility] Study observation (narrative) [facility] Office Visiton 10-07-2024 Follow-up visit [id number] Jada Grigsby 1965 M Date Provider Department Center 10/07/2024 [id number], EHAB CARD [facility] Family History Problem Relation Age of Onset Heart failure Father Coronary artery disease Father Family Status - Relation Status Age at Father Level of Service:15201 [place] OFFICE/OUTPATIENT ESTABLISHED LOW MDM 20 MIN Normal [facility] THEOPHYLLINEon 03-15-2023 THEOPHYLLINE 5.9 ug/mL Critically low 10.0-20.0 [facility] Comment on above: Performed By: #### T ALAN #### [facility] [address] [place] [address] Dr. Navneet Aguilar CHUCKIE by IFAon 01-23-2023 Antinuclear Antibodies, IFA Positive Abnormal [facility] Comment on above: Result Comment: Nega tive <1:80 Borderline 1:80 Positive >1:80 Performed By: #### C BC #### [facility] [address] [address] [address] Navneet Aguilar Centriole Pattern Normal [facility] Comment on above: Performed By: #### C BC #### [facility] [address] [address] [address] Navneet Aguilar Centromere Pattern Normal [facility] Comment on above: Performed By: #### C BC #### [facility] [address] [address] [address] Navneet Aguilar Homogeneous Pattern 1:80 Normal [facility] Comment on above: Result Comment: ICAP nomenclature: AC-1 Performed By: #### C BC #### [facility] [address] [place], [place] [address] Dr. Navneet Aguilar Midbody Pattern Normal [facility] Comment on above: Performed By: #### C BC #### [facility] [address] [place], [place] [address] Dr. Navneet Aguilar Note: Comment Normal [facility] Comment on above: Result Comment: For more [...] titers Nucleosomes, Histones Drug-induced SLE Speckled Sm, PROGRAM MANAGER ENVIRONMENTAL PLANNING, SCL-70, SLE,MCTD,PSS (diffuse form), SS-A/SS-B Sjogrens Nucleolar SCL-70, PM-1/SCL High titers Scleroderma, PM/DM Centromere Centromere PSS (limited form) w/Crest syndrome variable Nuclear Dot Sp100,[id number] Primary Biliary Cirrhosis Nuclear GP210, Primary Biliary Cirrhosis Membrane ofelia A,B,C Performed By: #### C BC #### [facility] [address] [place] [address] Dr. Navneet Aguilar Nuclear Dot Pattern Normal [facility] Comment on above: Performed By: #### C BC #### [facility] [address] [place] [address] Dr. Navneet Aguilar Nuclear Membrane Pattern Normal [facility] Comment on above: Performed By: #### C BC #### [facility] [address] [place] [address] Dr. Navneet Aguilar Nucleolar Pattern Normal [facility] Comment on above: Performed By: #### C BC #### [facility] [address] [place] [address] Dr. Navneet Aguilar PCNA Pattern Normal [facility] Comment on above: Performed By: #### C BC #### [facility] [address] [place] [address] Dr. Navneet Aguilar Speckled Pattern Normal [facility] Comment on above: Performed By: #### C BC #### [facility] [address] [place] [address] Dr. Navneet Aguilar Spindle Apparatus Pattern Normal [facility] Comment on above: Performed By: #### C BC #### [facility] [address] [place] [address] Dr. Navneet Aguilar INSULINon 01-23-2023 Insulin 50.9 uIU/mL Critically high 2.6-24.9 [facility] Comment on above: Performed By: #### I NSULIN #### [facility] [address] [place] [address] Dr. Navneet Aguilar ANTISTREPTOLYSIN O AB (ASO)o n 01-22-2023 Antistreptolysin O Ab 55.6 IU/mL Normal 0.0-200.0 [facility] Comment on above: Performed By: #### H GB #### [facility] [address] [place] [address] Dr. Navneet Aguilar RHEUMATOID FACTORon 01-23-20 RA Latex Turbid. <10.0 Normal <14.0 [facility] Comment on above: Performed By: #### H GB #### [facility] [address] [place] [address] Dr. Navneet Aguilar CBC AUTO DIFFon 01-21-2023 BASO # 0.0 103/ul Normal 0.0-0.1 [facility] Comment on above: Performed By: #### C BC #### [facility] [address] [place] [address] Dr. Navneet Aguilar Basophils/100 WBC (Bld) 0.8 % Normal 0.2-2.0 [facility] Comment on above: Performed By: #### C BC #### [facility] [address] [place] [address] Dr. Navneet Aguilar EO # 0.1 103/ul Normal 0.0-0.7 [facility] Comment on above: Performed By: #### C BC #### [facility] [address] [place] [address] Dr. Navneet Aguilar Eosinophils/100 WBC (Bld) 2.1 % Normal 0.9-7.0 [facility] Comment on above: Performed By: #### C BC #### [facility] [address] [place] [address] Dr. Navneet Aguilar Erythrocyte distribution width (RBC) [Ratio] 13.7 % Normal 11.0-15.0 [facility] Comment on above: Performed By: #### C BC #### [facility] [address] [place] [address] Dr. Navneet Aguilar Hematocrit (Bld) [Volume fraction] 37.6 % Critically low 42.0-54.0 [facility] Comment on above: Performed By: #### C BC #### [facility] [address] [place] [address] Dr. Navneet Aguilar Hemoglobin (Bld) [Mass/Vol] 12.7 g/dL Critically low 14.0-18.0 [facility] Comment on above: Performed By: #### C BC #### [facility] [address] [place] [address] Dr. Navneet Aguilar IG # 0.01 10e3/ul Normal 0.00-0.03 [facility] Comment on above: Performed By: #### C BC #### [facility] [address] [place] [address] Dr. Navneet Aguilar IG % 0.2 % Normal 0.0-0.5 [facility] Comment on above: Performed By: #### C BC #### [facility] [address] [place] [address] Dr. Navneet Aguilar LYMPH # 1.8 103/ul Normal 1.2-3.8 [facility] Comment on above: Performed By: #### C BC #### [facility] [address] [place] [address] Dr. Navneet Aguilar Lymphocytes/100 WBC (Bld) 33.1 % Normal 20.5-60.0 [facility] Comment on above: Performed By: #### C BC #### [facility] [address] [place] [address] Dr. Navneet Aguilar MANUAL DIFF REQ NO Normal [facility] Comment on above: Performed By: #### C BC #### [facility] [address] [place] [address] Dr. Navneet Aguilar MCH (RBC) [Entitic mass] 29.4 pg Normal 25.9-34.0 [facility] Comment on above: Performed By: #### C BC #### [facility] [address] [place] [address] Dr. Navneet Aguilar MCHC (RBC) [Mass/Vol] 33.8 g/dL Normal 29.9-35.2 [facility] Comment on above: Performed By: #### C BC #### [facility] [address] [place] [address] Dr. Navneet Aguilar MCV (RBC) [Entitic vol] 87.0 fL Normal 80.0-94.0 [facility] Comment on above: Performed By: #### C BC #### [facility] [address] [place] [address] Dr. Navneet Aguilar MONO # 0.4 103/ul Normal 0.3-0.8 [facility] Comment on above: Performed By: #### C BC #### [facility] [address] [place] [address] Dr. Navneet Aguilar Monocytes/100 WBC (Bld) 8.1 % Normal 1.7-12.0 [facility] Comment on above: Performed By: #### C BC #### [facility] [address] [place] [address] Dr. Navneet Aguilar NEUT # 2.9 103/ul Normal 1.4-6.5 [facility] Comment on above: Performed By: #### C BC #### [facility] [address] [place] [address] Dr. Navneet Aguilar Neutrophils/100 WBC (Bld) 55.7 % Normal 43.0-75.0 [facility] Comment on above: Performed By: #### C BC #### [facility] [address] [place] [address] Dr. Navneet Aguilar Platelet mean volume (Bld) [Entitic vol] 10.6 fL Normal 9.5-13.5 [facility] Comment on above: Performed By: #### C BC #### [facility] [address] [address] [address] Navneet Aguilar PLT 236 103/ul Normal 150-450 [facility] Comment on above: Performed By: #### C BC #### [facility] [address] [address] [address] Navneet Aguilar RBC 4.32 106/ul Critically low 4.70-6.10 [facility] Comment on above: Performed By: #### C BC #### [facility] [address] [address] [address] Navneet Aguilar WBC 5.3 103/ul Normal 4.0-11.0 [facility] Comment on above: Performed By: #### C BC #### [facility] [address] [place] [address] Dr. Navneet Aguilar CRPon 01-21-2023 CRP [Mass/Vol] mg/L Normal <=1.0 [facility] Comment on above: Performed By: #### H GB #### [facility] [address] [place] [address] Dr. Navneet Aguilar FREE THYROXINE INDEX T7on FTI 2.59 Normal 1.30-4.50 [facility] Comment on above: Performed By: #### C BC #### [facility] [address] [place] [address] Dr. Navneet Aguilar T3U 32.0 % Critically low 33.0-40.0 [facility] Comment on above: Performed By: #### C BC #### [facility] [address] [address] [address] Navneet Aguilar T4 [Mass/Vol] 8.10 ug/dL Normal 4.50-12.10 [facility] Comment on above: Performed By: #### C BC #### [facility] [address] [place] [address] Dr. Navneet Aguilar GLYCOHEMOGLOBIN A1Con 2022 ADA RECOMMENDATION SEE BELOW Normal [facility] Comment on above: Result Comment: ADA RECOMMENDED LIMIT 4.0 - 6.0 ADA THERAPEUTIC TARGET < 7.0 ACTION SUGGESTED > 7.0 Performed By: #### H GB #### [facility] [address] [address] [address] Navneet Aguilar Glucose [Mass/Vol] 126 mg/dL Normal [facility] Comment on above: Performed By: #### H GB #### [facility] [address] [place] [address] Dr. Navneet Aguilar HbA1c (Bld) [Mass fraction] 6.0 % Normal 4.5-6.2 [facility] Comment on above: Performed By: #### H GB #### [facility] [address] [place] [address] Dr. Navneet Aguilar LIPID PROFILEon 01-21-2023 CHOL-HDL RATIO NORM SEE BELOW Normal [facility] Comment on above: Result Comment: 3.3 - 4.4 LOW RISK 4.4 - 7.1 AVERAGE RISK 7.1 - 11.0 MODERATE RISK >11.0 HIGH RISK Performed By: #### C BC #### [facility] [address] [place] [address] Dr. Navneet Aguilar Cholesterol [Mass/Vol] 96 mg/dL Normal <=200 [facility] Comment on above: Performed By: #### C BC #### [facility] [address] [place] [address] Dr. Navneet Aguilar Cholesterol in HDL [Mass/Vol] 45 mg/dL Normal 40-60 [facility] Comment on above: Performed By: #### C BC #### [facility] [address] [place] [address] Dr. Navneet Aguilar Cholesterol in LDL [Mass/Vol] 37.2 mg/dL Normal [facility] Comment on above: Performed By: #### C BC #### [facility] [address] [place] [address] Dr. Navneet Aguilar Cholesterol.total/ Cholesterol in HDL [Mass ratio] 2.1 {ratio} Normal [facility] Comment on above: Performed By: #### C BC #### [facility] [address] [place] [address] Dr. Navneet Aguilar HDL NORMAL > or = 60 mg/dl - LO W CARDIOVASCULAR RISK <40 mg/dl - HIGH CARDIOVASCULAR RISK Normal [facility] Comment on above: Performed By: #### C BC #### [facility] [address] [address] [address] Navneet Aguilar LDL CALC NORMAL SEE BELOW Normal [facility] Comment on above: Result Comment: <100 mg/dl OPTIMAL 100 - 129 mg/dl NEAR OR ABOVE OPTIMAL 130 - 159 mg/dl BORDERLINE HIGH 160 - 189 mg/dl HIGH >190 mg/dl VERY HIGH Performed By: #### C BC #### [facility] [address] [address] [address] Navneet Aguilar Triglyceride [Mass/Vol] 69 mg/dL Normal <=150 [facility] Comment on above: Performed By: #### C BC #### [facility] [address] [address] [address] Navneet Aguilar VLDL CALC 13.8 mg/dL Normal [facility] Comment on above: Performed By: #### C BC #### [facility] [address] [address] [address] Navneet Aguilar OCC BLD IMMUNO SCREENon 01-04 OCCULT BLOOD Negative Normal NEGATIVE [facility] Comment on above: Performed By: #### O BSCRN #### [facility] [address] [address] [address] Navneet Aguilar PROF 14(COMP METB)on 023 Albumin [Mass/Vol] 4.1 g/dL Normal 3.4-5.0 [facility] Comment on above: Performed By: #### C BC #### [facility] [address] [address] [address] Navneet Aguilar Albumin/Globulin [Mass ratio] 1.4 {ratio} Normal [facility] Comment on above: Performed By: #### C BC #### [facility] [address] [address] [address] Navneet Aguilar ALP [Catalytic activity/Vol] 40 U/L Critically low 46-116 [facility] Comment on above: Performed By: #### C BC #### [facility] [address] [address] [address] Navneet Aguilar ALT [Catalytic activity/Vol] 33 U/L Normal 16-63 [facility] Comment on above: Performed By: #### C BC #### [facility] [address] [place] [address] Dr. Navneet Aguilar Anion gap [Moles/Vol] 14.6 mmol/L Normal [facility] Comment on above: Performed By: #### C BC #### [facility] [address] [place] [address] Dr. Navneet Aguilar AST [Catalytic activity/Vol] 33 U/L Normal 15-37 [facility] Comment on above: Performed By: #### C BC #### [facility] [address] [place] [address] Dr. Navneet Aguilar Bilirubin [Mass/Vol] 0.4 mg/dL Normal 0.2-1.0 [facility] Comment on above: Performed By: #### C BC #### [facility] [address] [place] [address] Dr. Navneet Aguilar Calcium [Mass/Vol] 9.2 mg/dL Normal 8.5-10.1 [facility] Comment on above: Performed By: #### C BC #### [facility] [address] [place] [address] Dr. Navneet Aguilar Chloride [Moles/Vol] 109 mmol/L Critically high 98-107 [facility] Comment on above: Performed By: #### C BC #### [facility] [address] [place] [address] Dr. Navneet Aguilar CO2 [Moles/Vol] 23.1 mmol/L Normal 21.0-32.0 [facility] Comment on above: Performed By: #### C BC #### [facility] [address] [place] [address] Dr. Navneet Aguilar Creatinine [Mass/Vol] 1.12 mg/dL Normal 0.70-1.30 [facility] Comment on above: Performed By: #### C BC #### [facility] [address] [place] [address] Dr. Navneet Aguilar EGFR-AF [place]THER[place] >60 Normal >=60 [facility] Comment on above: Performed By: #### C BC #### [facility] [address] [place] [address] Dr. Navneet Aguilar EGFR-NON AF [place] >60 Normal >=60 [facility] Comment on above: Performed By: #### C BC #### [facility] [address] [place] [address] Dr. Navneet Aguilar Globulin (S) [Mass/Vol] 2.9 g/dL Normal [facility] Comment on above: Performed By: #### C BC #### [facility] [address] [place] [address] Dr. Navneet Aguilar Glucose [Mass/Vol] 109 mg/dL Critically high 74-106 [facility] Comment on above: Performed By: #### C BC #### [facility] [address] [place] [address] Dr. Navneet Aguilar Potassium [Moles/Vol] 3.7 mmol/L Normal 3.5-5.1 [facility] Comment on above: Performed By: #### C BC #### [facility] [address] [place] [address] Dr. Navneet Aguilar Protein [Mass/Vol] 7.0 g/dL Normal 6.4-8.2 [facility] Comment on above: Performed By: #### C BC #### [facility] [address] [place] [address] Dr. Navneet Aguilar Sodium [Moles/Vol] 143 mmol/L Normal 136-145 [facility] Comment on above: Performed By: #### C BC #### [facility] [address] [place] [address] Dr. Navneet Aguilar Urea nitrogen [Mass/Vol] 18.0 mg/dL Normal 7.0-18.0 [facility] Comment on above: Performed By: #### C BC #### [facility] [address] [place] [address] Dr. Navneet Aguilar Urea nitrogen/Creatinin e [Mass ratio] 16.1 mg/mg Normal [facility] Comment on above: Performed By: #### C BC #### [facility] [address] [address] [address] Navneet Aguilar TSHon 01-21-2023 TSH 1.912 uIU/mL Normal 0.358-3.740 [facility] Comment on above: Performed By: #### H GB #### [facility] [address] [place] [address] Dr. Navneet Aguilar URIC ACID SERUMon 01-21-2023 Urate [Mass/Vol] 6.9 mg/dL Normal 3.5-7.2 [facility] Comment on above: Performed By: #### H GB #### [facility] [address] [place] [address] Dr. Navneet Aguilar THEOPHYLLINEon 12-26-2022 THEOPHYLLINE 5.3 ug/mL Critically low 10.0-20.0 [facility] Comment on above: Performed By: #### C BC #### [facility] [address] [place] [address] Dr. Navneet Aguilar LIPID PROFILEon 10-01-2022 CHOL-HDL RATIO NORM SEE BELOW Normal [facility] Comment on above: Result Comment: 3.3 - 4.4 LOW RISK 4.4 - 7.1 AVERAGE RISK 7.1 - 11.0 MODERATE RISK >11.0 HIGH RISK Performed By: #### L IPID, CMP #### [facility] [address] [place] [address] Dr. Navneet Aguilar Cholesterol [Mass/Vol] 92 mg/dL Normal <=200 [facility] Comment on above: Performed By: #### L IPID, CMP #### [facility] [address] [place] [address] Dr. Navneet Aguilar Cholesterol in HDL [Mass/Vol] 40 mg/dL Normal 40-60 [facility] Comment on above: Performed By: #### L IPID, CMP #### [facility] [address] [place] [address] Dr. Navneet Aguilar Cholesterol in LDL [Mass/Vol] 33.2 mg/dL Normal [facility] Comment on above: Performed By: #### L IPID, CMP #### [facility] [address] [address] [address] Navneet Aguilar Cholesterol.total/ Cholesterol in HDL [Mass ratio] 2.3 {ratio} Normal [facility] Comment on above: Performed By: #### L IPID, CMP #### [facility] [address] [address] [address] Navneet Aguilar HDL NORMAL > or = 60 mg/dl - LO W CARDIOVASCULAR RISK <40 mg/dl - HIGH CARDIOVASCULAR RISK Normal [facility] Comment on above: Performed By: #### L IPID, CMP #### [facility] [address] [address] [address] Navneet Aguilar LDL CALC NORMAL SEE BELOW Normal [facility] Comment on above: Result Comment: <100 mg/dl OPTIMAL 100 - 129 mg/dl NEAR OR ABOVE OPTIMAL 130 - 159 mg/dl BORDERLINE HIGH 160 - 189 mg/dl HIGH >190 mg/dl VERY HIGH Performed By: #### L IPID, CMP #### [facility] [address] [address] [address] Navneet Aguilar Triglyceride [Mass/Vol] 94 mg/dL Normal <=150 [facility] Comment on above: Performed By: #### L IPID, CMP #### [facility] [address] [address] [address] Navneet Aguilar VLDL CALC 18.8 mg/dL Normal [facility] Comment on above: Performed By: #### L IPID, CMP #### [facility] [address] [address] [address] Navneet Aguilar PROF 14(COMP METB)on 022 Albumin [Mass/Vol] 3.6 g/dL Normal 3.4-5.0 [facility] Comment on above: Performed By: #### L IPID, CMP #### [facility] [address] [address] [address] Navneet Aguilar Albumin/Globulin [Mass ratio] 1.2 {ratio} Normal [facility] Comment on above: Performed By: #### L IPID, CMP #### [facility] [address] [address] [address] Navneet Aguilar ALP [Catalytic activity/Vol] 45 U/L Critically low 46-116 [facility] Comment on above: Performed By: #### L IPID, CMP #### [facility] [address] [address] [address] Navneet Aguilar ALT [Catalytic activity/Vol] 25 U/L Normal 16-63 [facility] Comment on above: Performed By: #### L IPID, CMP #### [facility] [address] [address] [address] Navneet Aguilar Anion gap [Moles/Vol] 13.5 mmol/L Normal [facility] Comment on above: Performed By: #### L IPID, CMP #### [facility] [address] [address] [address] Navneet Aguilar AST [Catalytic activity/Vol] 37 U/L Normal 15-37 [facility] Comment on above: Performed By: #### L IPID, CMP #### [facility] [address] [address] [address] Navneet Aguilar Bilirubin [Mass/Vol] 0.4 mg/dL Normal 0.2-1.0 [facility] Comment on above: Performed By: #### L IPID, CMP #### [facility] [address] [address] [address] Navneet Aguilar Calcium [Mass/Vol] 8.9 mg/dL Normal 8.5-10.1 [facility] Comment on above: Performed By: #### L IPID, CMP #### [facility] [address] [address] [address] Navneet Aguilar Chloride [Moles/Vol] 109 mmol/L Critically high 98-107 [facility] Comment on above: Performed By: #### L IPID, CMP #### [facility] [address] [address] [address] Navneet Aguilar CO2 [Moles/Vol] 25.3 mmol/L Normal 21.0-32.0 [facility] Comment on above: Performed By: #### L IPID, CMP #### [facility] [address] [address] [address] Navneet Aguilar Creatinine [Mass/Vol] 1.07 mg/dL Normal 0.70-1.30 [facility] Comment on above: Performed By: #### L IPID, CMP #### [facility] [address] [address] [address] Navneet Aguilar EGFR-AF [place] >60 Normal >=60 [facility] Comment on above: Performed By: #### L IPID, CMP #### [facility] [address] [address] [address] Navneet Aguilar EGFR-NON AF [place] >60 Normal >=60 [facility] Comment on above: Performed By: #### L IPID, CMP #### [facility] [address] [address] [address] Navneet Aguilar Globulin (S) [Mass/Vol] 3.1 g/dL Normal [facility] Comment on above: Performed By: #### L IPID, CMP #### [facility] [address] [address] [address] Navneet Aguilar Glucose [Mass/Vol] 115 mg/dL Critically high 74-106 [facility] Comment on above: Performed By: #### L IPID, CMP #### [facility] [address] [address] [address] Navneet Aguilar Potassium [Moles/Vol] 3.8 mmol/L Normal 3.5-5.1 [facility] Comment on above: Performed By: #### L IPID, CMP #### [facility] [address] [address] [address] Navneet Aguilar Protein [Mass/Vol] 6.7 g/dL Normal 6.4-8.2 [facility] Comment on above: Performed By: #### L IPID, CMP #### [facility] [address] [address] [address] Navneet Aguilar Sodium [Moles/Vol] 144 mmol/L Normal 136-145 [facility] Comment on above: Performed By: #### L IPID, CMP #### [facility] [address] [address] [address] Navneet Aguilar Urea nitrogen [Mass/Vol] 21.0 mg/dL Critically high 7.0-18.0 [facility] Comment on above: Performed By: #### L IPID, CMP #### [facility] [address] [address] [address] Navneet Aguilar Urea nitrogen/Creatinin e [Mass ratio] 19.6 mg/mg Normal [facility] Comment on above: Performed By: #### L IPID, CMP #### [facility] [address] [address] [address] Navneet Aguilar ASPERGILLUS AB, QUANTITATIVE DIDon 07-08-2022 Aspergillus flavus Negative Normal Neg:<1:1 [facility] Comment on above: Performed By: #### C BC #### [facility] [address] [place] [address] Dr. Navneet Aguilar Aspergillus fumigatus Negative Normal Neg:<1:1 [facility] Comment on above: Performed By: #### C BC #### [facility] [address] [place] [address] Dr. Navneet Aguilar Aspergillus niger Negative Normal Neg:<1:1 [facility] Comment on above: Performed By: #### C BC #### [facility] [address] [place] [address] Dr. Navneet Aguilar IMMUNOGLOBULIN E, TOTALon Immunoglobulin E, Total 102 IU/mL Normal 6-495 [facility] Comment on above: Performed By: #### C BC #### [facility] [address] [place] [address] Dr. Navneet Aguilar ANTI NEUTROPHIL CYTOPLASMIC AB (ANCA) PRon 07-05-2022 Anti-MPO Antibodies <0.2 Normal 0.0-0.9 [facility] Comment on above: Result Comment: Perf ormed at: BN Performed By: #### H GB #### [facility] [address] [place] [address] Dr. Navneet Aguilar Anti-PR3 Antibodies <0.2 Normal 0.0-0.9 [facility] Comment on above: Result Comment: Perf ormed at: BN Performed By: #### H GB #### [facility] [address] [place] [address] Dr. Navneet Aguilar Atypical pANCA <1:20 Normal Neg:<1:20 [facility] Comment on above: Result Comment: The atypical pANCA pattern has been observed in a significant percentage of patients with ulcerative colitis, primary sclerosing cholangitis and autoimmune hepatitis. Performed at: CB Performed By: #### H GB #### [facility] [address] [place] [address] Dr. Navneet Aguilar Cytoplasmic (C-ANCA) <1:20 Normal Neg:<1:20 [facility] Comment on above: Result Comment: Perf ormed at: CB Performed By: #### H GB #### [facility] [address] [place] [address] Dr. Navneet Aguilar Perinuclear (P-ANCA) <1:20 Normal Neg:<1:20 [facility] Comment on above: Result Comment: The presence of positive fluorescence exhibiting P-ANCA or C-ANCA patterns alone is not specific for the diagnosis of [place]'s Granulomatosis (WG) or microscopic polyangiitis. Decisions about treatment should not be based solely on ANCA IFA results. The [employer] ANCA Group Consensus recommends follow up testing of positive sera with both WI-3 and MPO-ANCA enzyme immunoassays. As many as 5% serum samples are positive only by EIA. Ref. AM J Clin Pathol 1999;111:507-513. Performed at: CB Performed By: #### H GB #### [facility] [address] [place] [address] Dr. Navneet Aguilar CBC AUTO DIFFon 06-30-2022 BASO # 0.0 103/ul Normal 0.0-0.1 [facility] Comment on above: Performed By: #### C BC #### [facility] [address] [place] [address] Dr. Navneet Aguilar Basophils/100 WBC (Bld) 0.7 % Normal 0.2-2.0 [facility] Comment on above: Performed By: #### C BC #### [facility] [address] [place] [address] Dr. Navneet Aguilar EO # 0.1 103/ul Normal 0.0-0.7 [facility] Comment on above: Performed By: #### C BC #### [facility] [address] [place] [address] Dr. Navneet Aguilar Eosinophils/100 WBC (Bld) 1.9 % Normal 0.9-7.0 [facility] Comment on above: Performed By: #### C BC #### [facility] [address] [place] [address] Dr. Navneet Aguilar Erythrocyte distribution width (RBC) [Ratio] 12.5 % Normal 11.0-15.0 [facility] Comment on above: Performed By: #### C BC #### [facility] [address] [place] [address] Dr. Navneet Aguilar Hematocrit (Bld) [Volume fraction] 38.6 % Critically low 42.0-54.0 [facility] Comment on above: Performed By: #### C BC #### [facility] [address] [place] [address] Dr. Navneet Aguilar Hemoglobin (Bld) [Mass/Vol] 12.9 g/dL Critically low 14.0-18.0 [facility] Comment on above: Performed By: #### C BC #### [facility] [address] [place] [address] Dr. Navneet Aguilar IG # 0.01 10e3/ul Normal 0.00-0.03 [facility] Comment on above: Performed By: #### C BC #### [facility] [address] [place] [address] Dr. Navneet Aguilar IG % 0.2 % Normal 0.0-0.5 [facility] Comment on above: Performed By: #### C BC #### [facility] [address] [place] [address] Dr. Navneet Aguilar LYMPH # 2.4 103/ul Normal 1.2-3.8 [facility] Comment on above: Performed By: #### C BC #### [facility] [address] [place] [address] Dr. Navneet Aguilar Lymphocytes/100 WBC (Bld) 41.7 % Normal 20.5-60.0 [facility] Comment on above: Performed By: #### C BC #### [facility] [address] [place] [address] Dr. Navneet Aguilar MANUAL DIFF REQ NO Normal [facility] Comment on above: Performed By: #### C BC #### [facility] [address] [place] [address] Dr. Navneet Aguilar MCH (RBC) [Entitic mass] 29.8 pg Normal 25.9-34.0 [facility] Comment on above: Performed By: #### C BC #### [facility] [address] [place] [address] Dr. Navneet Aguilar MCHC (RBC) [Mass/Vol] 33.4 g/dL Normal 29.9-35.2 [facility] Comment on above: Performed By: #### C BC #### [facility] [address] [place] [address] Dr. Navneet Aguilar MCV (RBC) [Entitic vol] 89.1 fL Normal 80.0-94.0 [facility] Comment on above: Performed By: #### C BC #### [facility] [address] [place] [address] Dr. Navneet Aguilar MONO # 0.6 103/ul Normal 0.3-0.8 [facility] Comment on above: Performed By: #### C BC #### [facility] [address] [place] [address] Dr. Navneet Aguilar Monocytes/100 WBC (Bld) 10.5 % Normal 1.7-12.0 [facility] Comment on above: Performed By: #### C BC #### [facility] [address] [place] [address] Dr. Navneet Aguilar NEUT # 2.6 103/ul Normal 1.4-6.5 [facility] Comment on above: Performed By: #### C BC #### [facility] [address] [place] [address] Dr. Navneet Aguilar Neutrophils/100 WBC (Bld) 45.0 % Normal 43.0-75.0 [facility] Comment on above: Performed By: #### C BC #### [facility] [address] [place] [address] Dr. Navneet Aguilar Platelet mean volume (Bld) [Entitic vol] 10.1 fL Normal 9.5-13.5 [facility] Comment on above: Performed By: #### C BC #### [facility] [address] [place] [address] Dr. Navneet Aguilar PLT 296 103/ul Normal 150-450 [facility] Comment on above: Performed By: #### C BC #### [facility] [address] [place] [address] Dr. Navneet Aguilar RBC 4.33 106/ul Critically low 4.70-6.10 [facility] Comment on above: Performed By: #### C BC #### [facility] [address] [place] [address] Dr. Navneet Aguilar WBC 5.8 103/ul Normal 4.0-11.0 [facility] Comment on above: Performed By: #### C BC #### [facility] [address] [place] [address] Dr. Navneet Aguilar PROF CHEM 8 (BAS METB)on Anion gap [Moles/Vol] 13.2 mmol/L Normal [facility] Comment on above: Performed By: #### B MP #### [facility] [address] [place] [address] Dr. Navneet Aguilar Calcium [Mass/Vol] 9.1 mg/dL Normal 8.5-10.1 [facility] Comment on above: Performed By: #### B MP #### [facility] [address] [place] [address] Dr. Navneet Aguilar Chloride [Moles/Vol] 106 mmol/L Normal 98-107 [facility] Comment on above: Performed By: #### B MP #### [facility] [address] [place] [address] Dr. Navneet Aguilar CO2 [Moles/Vol] 23.7 mmol/L Normal 21.0-32.0 [facility] Comment on above: Performed By: #### B MP #### [facility] [address] [address] [address] Navneet Aguilar Creatinine [Mass/Vol] 1.06 mg/dL Normal 0.70-1.30 [facility] Comment on above: Performed By: #### B MP #### [facility] [address] [address] [address] Navneet Aguilar EGFR-AF [place] >60 Normal >=60 [facility] Comment on above: Performed By: #### B MP #### [facility] [address] [address] [address] Navneet Aguilar EGFR-NON AF [place] >60 Normal >=60 [facility] Comment on above: Performed By: #### B MP #### [facility] [address] [address] [address] Navneet Aguilar Glucose [Mass/Vol] 94 mg/dL Normal 74-106 [facility] Comment on above: Performed By: #### B MP #### [facility] [address] [address] [address] Navneet Aguilar Potassium [Moles/Vol] 3.9 mmol/L Normal 3.5-5.1 [facility] Comment on above: Performed By: #### B MP #### [facility] [address] [address] [address] Navneet Aguilar Sodium [Moles/Vol] 139 mmol/L Normal 136-145 [facility] Comment on above: Performed By: #### B MP #### [facility] [address] [address] [address] Navneet Aguilar Urea nitrogen [Mass/Vol] 17.0 mg/dL Normal 7.0-18.0 [facility] Comment on above: Performed By: #### B MP #### [facility] [address] [address] [address] Navneet Aguialr Urea nitrogen/Creatinin e [Mass ratio] 16.0 mg/mg Normal [facility] Comment on above: Performed By: #### B #### [facility] [address] [address] [address] Navneet Aguilar XR CHEST 2 Von [...] by: MICKY MORENO Date: 2022-05-30 10:52 Normal [facility] ECHOCARDIO M/2D COMPLETEon 0 04-18-2022 ECHOCARDIO M/2D COMPLETE Patient: PARAS GRIGSBY Exam Date: 04/18/2022 : 1965 Gender:M Ordering : DR LAMBERT JOSE . Admission #: [id number] Family : Order #: [id number] CLICK HERE TO VIEW EXAM ECHOCARDIOGRAM REPORT [...] Area(A4C): 16.30 cm2 Left Atrium Systolic Volume(A2C): 62889 mm3 Left Atrium Systolic Volume(A4C): 44373 mm3 Mitral Valve MV E to A [...] Rivas M.D. on 04/19/2022 at 18:16 Normal [facility] CTA CHEST WO W CONon 022 [...] by: PADMINI WHITE Date: 2022-04-11 07:16 Normal [facility] HEMOGLOBINon 03-24-2022 Hemoglobin (Bld) [Mass/Vol] 13.2 g/dL Critically low 14.0-18.0 [facility] Comment on above: Performed By: #### H GB #### [facility] [address] [place] [address] Dr. Navneet Aguilar Vital Signs Date Time Vital Sign Value Performing Clinician Facility 04-30-2025 16:14-0400 Body height 170.2 cm Angel Alcaraz DPM Work Phone: [facility] 04-30-2025 16:14-0400 Body mass index (BMI) [Ratio] 40.41 kg/m2 Angel Alcaraz DPM Work Phone: [facility] 04-30-2025 16:14-0400 Body weight 117.03 kg Angel LUCIANOM Work Phone: [facility] 01-30-2025 15:57-0400 Body mass index (BMI) [Ratio] 40.41 kg/m2 Debora Dunham MD Work Phone: [facility] 01-30-2025 15:57-0400 Body weight 117.03 kg Debora Duhnam MD Work Phone: [facility] 11-20-2024 13:32-0500 Body height 170.2 cm Giovanny Tatum PA Work Phone: [facility] 11-20-2024 13:32-0500 Body mass index (BMI) [Ratio] 37.59 kg/m2 Giovanny Tatum PA Work Phone: [facility] 11-20-2024 13:32-0500 Body weight 108.86 kg Giovanny Tatum PA Work Phone: [facility] 07-15-2024 15:18-0400 Body mass index (BMI) [Ratio] 40.25 kg/m2 Debora Dunham MD Work Phone: [facility] 07-15-2024 15:18-0400 Body weight 116.57 kg Debora Dunham MD Work Phone: [facility] 02-23-2023 16:25-0400 Body height 170.18 cm Yasmine Joaquin Other [facility] Other 02-23-2023 16:25-0400 Body mass index (BMI) [Ratio] 40.72 kg/m2 Yasmine Joaquin Other [facility] Other 02-23-2023 16:25-0400 Body temperature 98.8 [degF] Yasmine Joaquin Other [facility] Other 02-23-2023 16:25-0400 Body weight 117.94 kg Yasmine Joaquin Other [facility] Other 02-23-2023 16:25-0400 Diastolic blood pressure 70 mm[Hg] Yasmine Joaquin Other [facility] Other 02-23-2023 16:25-0400 Respiratory rate 18 /min Yasmine Joaquin Other [facility] Other 02-23-2023 16:25-0400 SaO2% (BldA) [Mass fraction] 97 % Yasmine Joaquin Other [facility] Other 02-23-2023 16:25-0400 Systolic blood pressure 131 mm[Hg] Yasmine Joaquin Other [facility] Other 02-17-2023 10:10-0400 Body height 170.18 cm Emma Oropezamond Other [facility] Other 02-17-2023 10:10-0400 Body mass index (BMI) [Ratio] 40.72 kg/m2 Emma Oropezamond Other [facility] Other 02-17-2023 10:10-0400 Body temperature 97.7 [degF] Emma Oropezamond Other [facility] Other 02-17-2023 10:10-0400 Body weight 117.94 kg Emma Oropezamond Other [facility] Other 02-17-2023 10:10-0400 Respiratory rate 18 /min Emma Oropezamond Other [facility] Other 02-17-2023 10:10-0400 SaO2% (BldA) [Mass fraction] 94 % Emma Oropezamond Other [facility] Other 02-15-2022 18:45-0400 Body height 170.18 cm Dimple Milligan Other [facility] Other 02-15-2022 18:45-0400 Body mass index (BMI) [Ratio] 39.46 kg/m2 Dimple Milligan Other [facility] Other 02-15-2022 18:45-0400 Body temperature 98.2 [degF] Dimple Milligan Other [facility] Other 02-15-2022 18:45-0400 Body weight 114.31 kg Dimple Milligan Other [facility] Other 02-15-2022 18:45-0400 Diastolic blood pressure 93 mm[Hg] Dimple Milligan Other [facility] Other 02-15-2022 18:45-0400 Respiratory rate 18 /min Dimple Milligan Other [facility] Other 02-15-2022 18:45-0400 SaO2% (BldA) [Mass fraction] 96 % Dimple Milligan Other [facility] Other 02-15-2022 18:45-0400 Systolic blood pressure 158 mm[Hg] Dimple Milligan Other [facility] Other Encounters Encounter Date Encounter Type Care Provider Facility Start: 08-04-2025 End: 08-04-2025 Office outpatient visit 25 minutes [facility] Comment on above: Chronic bronchitis, unspecified chronic bronchitis type (HCC) (Primary Dx); Chronic rhinitis Start: 08-04-2025 End: 08-04-2025 ambulatory DEBORA DUNHAM Not Available Start: 08-04-2025 End: 08-04-2025 Bamboo flowsheet Debora Dunham MD Work Phone: [facility] Start: 08-04-2025 End: 08-04-2025 Bamboo flowsemily Dunham MD Work Phone: [facility] Start: 07-16-2025 End: 07-16-2025 ambulatory Lee HALE Facility:[facility] Start: 07-16-2025 End: 07-16-2025 Patient encounter procedure Lee HALE [facility] [place] Start: 07-10-2025 End: 07-10-2025 ambulatory [facility] Start: 06-12-2025 End: 06-12-2025 ambulatory [facility] Start: 06-05-2025 End: 06-06-2025 ambulatory [facility] Start: 04-30-2025 End: 04-30-2025 Office outpatient visit 15 minutes Angel Alcaraz DPM Work Phone: [facility] Comment on above: Onychodystrophy (Carolyn veronica Dx); Onychomycosis Start: 04-30-2025 End: 04-30-2025 ambulatory ANGEL ALCARAZ Not Available Start: 04-30-2025 End: 04-30-2025 Bamboo flowsheet Angel Alcaraz DPM Work Phone: [facility] Start: 04-30-2025 End: 04-30-2025 Bamboo flowsheet Angel Alcaraz DPM Work Phone: [facility] Start: 04-18-2025 End: 04-18-2025 ambulatory DAMIAN [facility] Start: 01-30-2025 End: 01-30-2025 Office outpatient visit [...] Available Start: 10-07-2024 End: 10-07-2024 ambulatory AB [facility] Start: 07-15-2024 End: 07-15-2024 Office outpatient visit 15 minutes Debora Dunham MD Work Phone: [facility] Comment on above: Severe persistent as thma with (acute) exacerbation (CMS/HCC) (Primary Dx) Start: 07-15-2024 End: 07-15-2024 Bamboo flowsheet Debora Dunham MD Work Phone: [facility] Start: 07-15-2024 End: 07-15-2024 Bamboo flowsheet Debora Dunham MD Work Phone: [facility] Start: 03-15-2023 End: 03-16-2023 ambulatory [facility] Facility:[facility] Start: 02-25-2023 End: 02-25-2023 ambulatory ANABELLE AGGARWAL . Facility:[facility] Start: 02-23-2023 End: 02-23-2023 ambulatory Yasmine Joaquin Other [facility] Other Start: 02-23-2023 Office outpatient vi sit 15 minutes Yasmine Joaquin [facility] Start: 02-17-2023 End: 02-17-2023 ambulatory Emma Guerrero Other [facility] Other Start: 02-17-2023 Office outpatient vi sit 15 minutes Emma Guerrero [facility] Start: 01-28-2023 Encounter for genera l adult medical examination without abnormal findings DR LAMBERT JOSE . [facility] Start: 01-21-2023 End: 01-22-[address] LAMBERT JOSE . Facility:[facility] Start: 01-21-2023 End: 01-22-2023 Encounter for general adult medical examination without abnormal findings DR LAMBERT JOSE . Facility:[facility] Start: 12-26-2022 End: 12-27-2022 ambulatory [facility] Facility:[facility] Start: 10-01-2022 End: 10-02-[address] INES SERNA Facility:[facility] Start: 09-02-2022 End: 10-12-[address] INES SERNA Facility:[facility] Start: 07-27-2022 End: 07-28-2022 ambulatory MARYURI HADDAD Facility:[facility] Start: 06-30-2022 End: 07-01-2022 ambulatory AMRYURI HADDAD Facility:[facility] Start: 06-30-2022 End: 07-01-2022 ambulatory BRANDAN HOWARD Facility:[facility] Start: 05-30-2022 End: 05-31-[address] LAMBERT JOSE . Facility:[facility] Start: 04-18-2022 End: 04-19-[address] LAMBERT JOSE . Facility:[facility] Start: 04-09-2022 End: 04-10-[address] LAMBERT JOSE . Facility:[facility] Start: 03-24-2022 End: 03-25-[address] LAMBERT JOSE . Facility:[facility] Start: 02-15-2022 End: 02-15-2022 ambulatory Dimple Milligan Other [facility] Other Start: 02-15-2022 Office outpatient vi sit 15 minutes Dimple Milligan [facility] Procedures Date Procedure Procedure Detail Performing Clinician Start: 11-20-2024 Radiologic examination knee 1/2 views Giovanny SALDIVAR Work Phone: Start: 01-21-2023 PSA screening MARYURI HADDAD Comment on above: Performed By: #### PSASC #### [facility] [address] [place] [address] Dr. Navneet Aguilar Start: 08-03-2022 History of [...] Start: 08-04-2025 End: 08-04-2025 Patient encounter procedure [facility] Comment on above: Arrived Start: 07-07-2025 Influenza vaccination [facility] Start: 04-30-2025 End: 04-30-2025 Patient encounter procedure 04/30/2025 4:15 PM EDT Office Visit [facility] [address] [place] [phone] Angel Alcaraz, DPM [address] [place], [place] [phone] Arrived [facility] Comment on above: Arrived Start: 01-30-2025 End: 01-30-2025 Patient encounter procedure [facility] Comment on above: Arrived Start: 12-31-2024 End: 12-31-2024 Patient encounter procedure 12/31/2024 11:30 AM EST Office Visit [facility] [address] [place] [phone] Jr. Heraclio Doshi, DO [address] [facility] [address] [place] [address] [facility] Start: 12-06-2024 End: 12-06-2024 Patient encounter procedure [facility] Comment on above: Acute pain of left k nee (Primary Dx); Acute medial meniscus tear of left knee, initial encounter Start: 11-20-2024 End: 11-20-2025 MR Knee - left WO contrast MR knee left wo IV contrast Imaging Routine Internal derangement of left knee Expected: 11/20/2024 (Approximate), Expires: 11/20/2025 [facility] Work Phone: Comment on above: Expected: 11/20/2024 (Approximate), Expires: 11/20/2025 Start: 11-20-2024 End: 11-20-2024 Patient encounter procedure 11/20/2024 1:30 PM EST Office Visit [facility] [address] [place] [phone] Giovanny Tatum PA [address] [facility] [address] [place] [address] Acute pain of left knee (Primary Dx) [facility] Comment on above: Acute pain of left k nee (Primary Dx) Start: 07-15-2024 End: 07-15-2024 Patient encounter procedure 07/15/2024 3:20 PM EDT Office Visit [facility] [address] [facility] [address] [place] [address] Debora Dunham MD [address] [facility] [address] [place] [address] Arrived [facility] Comment on above: Arrived Start: 07-07-2024 Influenza vaccination Influenza Vacc ine (#1) [facility] Start: 1965 Screening for malignant neoplasm of colon [facility] Immunizations Immunization Date Immunization Notes Care Provider Fa cility 10-25-2021 SARS-CoV-2 (COVID-19 ) mRNA-1273 vaccine Lee HALE [facility] [place] 02-16-2021 SARS-CoV-2 (COVID-19 ) mRNA-1273 vaccine Lee NILL [facility] Comment on above: Result Comment: 2024: 48 01-19-2021 SARS-CoV-2 (COVID-19 ) mRNA-1273 vaccine Lee NILL [facility] NEGATED: Highlighted row has not occurred!09-18-2019 influenza virus vaccine, unspecified formulation Lee HALE [facility] [place] Payers Date Payer Category Payer Private Health Insurance [id number] 2022 Unknown [employer] [id number] 2022-Present [address] [place] [address] [id number] 1963 Unknown [id number] 2.16.840.1.803767.3.579.2.5 93 1963 Unknown [id number] 2.16.840.1.919850.3.579.2.5 93 1963 Unknown [id number] 2.16.840.1.366904.3.579.2.5 1963 Unknown [id number] 2.16.840.1.822675.3.579.2.5 93 1963 Unknown [id number] 2.16.840.1.344839.3.579.2.5 93 1963 Unknown [id number] 2.16.840.1.418120.3.579.2.5 93 1963 Unknown [id number] 2.16.840.1.583337.3.579.2.5 1963 Unknown [id number] 2.16.840.1.534501.3.579.2.5 93 1963 Unknown [id number] 2.16.840.1.756969.3.579.2.5 1963 Unknown [id number] 2.16.840.1.118331.3.579.2.5 1963 Unknown [id number] 2.16.840.1.420369.3.579.2.5 1963 Unknown [id number] 2.16.840.1.408013.3.579.2.5 93 1963 Unknown [id number] 2.16.840.1.669658.3.579.2.5 93 1963 Unknown [id number] 2.16.840.1.403948.3.579.2.7 27 1963 Unknown [id number] 2.16.840.1.907829.3.579.2.1 259 1963 Unknown [id number] 2.16.840.1.407679.3.579.2.1 259 1963 Unknown [id number] 2.16.840.1.069949.3.579.2.1 259 1963 Unknown [id number] 2.16.840.1.975374.3.579.2.1 259 1963 Unknown [id number] 2.16.840.1.886788.3.579.2.1 259 1963 Unknown [id number] 2.16.840.1.289538.3.579.2.1 259 1963 Unknown [id number] 2.16.840.1.170915.3.579.2.1 259 1959 Unknown [id number] 2.16.840.1.356443.19 Social History Date Type Detail Facility Start: 03-28-2024 End: 08-04-2025 Sex Assigned At [facility] Start: 02-14-2024 End: 04-30-2025 Tobacco smoking status [facility] Ex-smoker [facility] Start: 12-11-1986 End: 10-27-2011 History of tobacco use Current smoker [facility] Start: 12-11-1986 End: 10-27-2011 History of tobacco use Cigarette Smoker [facility] Start: 02-14-2024 End: 04-30-2025 Tobacco use and exposure Former smokeless tobacco user [facility] End: 12-11-1994 History of tobacco use Snuff User [facility] Start: 07-15-2024 End: 08-04-2025 Alcoholic beverage intake Ex-drinker (finding) [facility] Start: 03-28-2024 End: 08-04-2025 History of Social function [facility] Start: 06-12-2023 Alcohol Comment Caffeine intak e: >4 cups per day [facility] Start: 1965 Sex assigned at Male [facility] Start: 06-05-2023 Gender identity Identifies as male gender (finding) [facility] Tobacco smoking status Never Rile[facility] Sexual Orientation [facility] [place] Start: 11-15-2017 Sex Male (finding) [facility] Medical Equipment Procedure Code Equipment Code Equipment Origin al Text Equipment Identifier Dates HERNIA REPAIR, R OBOT DERICK HALE MD, Lee Wagner 10/07/19 Non Biological Abdomen {[id number] FDA Start: 10-07-2019 Clinical Notes 02-15-2022 to [...] in 2-3 months. documented in this encounter [facility] 07-16-2025 Note General Surgery Offi [...] COPD, asthma, hypertriglyceridemia, hypothyroidism, KAMERON, pulmonary htn, Awlker's esophagus, essential tremor, referred for anemia; found [...] 1 tab(s), O (more content not included)... [facility] Comment on above: Result Comment: Elec tronically Signed By: ALEXIA LEWIS, Lee Wagner\ankur\Date and Time Signed: 07/16/25 16:22 EDT 07-10-2025 Note Cardiovascular Medic [facility] SUBJECTIVE Chief Complaint Patient presents with Coronary Artery Disease Hypertension 1 month follow up S/P right/left heart cath Echo done 3 weeks ago at [facility] Stent placement 2021 Stent placement 2021 Shortness [...] and chest pain with exertion. 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 He is seeing pulmonary and business solutions architect soon. Denies c/o orthopnea, PND, LE edema, dizziness/LH, palpitations, syncope. Patient Active Problem List Diagnosis Chest pain CAD in [place] artery Essential hypertension COPD (chronic obstructive pulmonary disease) ([facility]) S/P drug eluting coronary stent placement [...] mg tablet, T (more content not included)... [facility] 06-26-2025 Note No significant aguilar es on his ECHO to explain his dyspnea. Recommend he see pulmonary. Will he see someone in [place]? [facility] 06-12-2025 Note Patient: Paras rees Pre-sedation [...] 10/07/2024 Severe persistent asthma with acute exacerbation ([facility]) 11/23/2023 Essential hypertension 08/04/2022 COPD (chronic obstructive pulmonary disease) ([facility]) 08/04/2022 S/P drug eluting coronary stent placement 08/04/2022 CAD in [place] artery 08/03/2022 Dyspnea 06/07/2022 Shortness of breath 11/22/2018 Hyperplastic polyp of intestine 05/03/2017 VILLAVICENCIO (dyspnea on exertion) 06/06/2025 Chest pain 07/14/2022 Allergies: Allergies[2] BEAM DYER/Current Medications: Prescriptions Prior to Admission[3] Current Medications[4] [...] and agreed to proceed. Barbara Abrams PGY-4 Customer Strategy Manager [facility] [1] Past Medical History: Diagnosis Date [...] No current facility-administered medications for this encounter. [facility] 06-05-2025 Note Patient here c/o SOB [...] All other systems reviewed and are negative. [facility] 06-05-2025 Note Cardiovascular Medic [facility] SUBJECTIVE Chief Complaint Patient presents [...] and chest pain with exertion. 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 [facility] 04-30-2025 History of Present illness Narrative [...] History Past Medical History: Diagnosis Date Asthma ([facility]) 2021 COPD (chronic obstructive pulmonary disease) ([facility]) 2021 History of medical problems 2012 [...] Angel Alcaraz DPM documented in this encounter [facility] 04-18-2025 Note Patient here today f or a 6 month. Patient states he been sick with the URI x1 week. Patient taking ATB. Patient state he still has VILLAVICENCIO, lightheaded. Review of Systems Cardiovascular: Positive for dyspnea on exertion. Neurological: Positive for light-headedness. [facility] 04-18-2025 Note SUBJECTIVE Reason for Visit: [...] Rate 08/03/2022 53 Atrial Rate 08/03/2022 53 WI Interval 08/03/2022 164 QRS DURATION 08/03/2022 100 QT Interval 08/03/2022 424 QTC CALCULATION(BAZETT) 08/03/2022 397 P [place] 08/03/2022 39 R-[place] 08/03/2022 -7 T Wave [place] 08/03/2022 51 Auto WBC 08/03/2022 4.48 RBC [...] Rate 08/03/2022 50 Atrial Rate 08/03/2022 50 WI Interval 08/03/2022 170 QRS DURATION 08/03/2022 104 QT Interval 08/03/2022 436 QTC CALCULATION(BAZETT) 08/03/2022 397 P [place] 08/03/2022 50 R-[place] 08/03/2022 4 T (more content not included)... [facility] 01-30-2025 History of Present illness Narrative [...] should problems arise. documented in this encounter [facility] 12-06-2024 History of Present illness Narrative Images from the original note were not included. HISTORY OF PRESENT ILLNESS: EST PT Paras Grigsby is an 59 y.o. @ male. (EST PT-PREVIOUSLY SAW ROSENDO TATUM ON 11/20/24) RECHECK LT KNEE PAIN ~2 MONTHS. PT FELT A POP IN KNEE- PT STATES PAIN IS IMPROVING. HERE FOR MRI RESULTS, DONE ON 11/27/24 AT [facility]. PT IS ON PLAVIX XRAY LT KNEE 11/20/24 EPIC MRI LT KNEE 11/27/24 EPIC ([facility]) NO CORTISONE INJ NO MDP/PREDNISONE HX [...] of said treatment. documented in this encounter [facility] 11-20-2024 History of Present illness [...] HISTORY: Past Medical History: Diagnosis Date Asthma ([facility]) 2021 COPD (chronic obstructive pulmonary disease) ([facility]) 2021 History of medical problems 2012 precancerous throat polyps Hyperlipidemia ([facility]) Hypertension ([facility]) PAST SURGICAL HISTORY: Past Surgical History: [...] requiring urgent evaluation. documented in this encounter [facility] 10-07-2024 Note [facility] Clinic Note Chief Complaint: Patient here [...] history of COPD (chronic obstructive pulmonary disease) ([facility]), Coronary artery disease, Hyperlipidemia, Hypertension, and [...] 109, BUN 1 (more content not included)... [facility] 07-15-2024 History of Present illness Narrative [...] should problems arise. documented in this encounter [facility] 02-23-2023 Evaluation note Encounter Date Diagnosis Assessment Notes Feb, Urticaria (ICD-10 - L50.9) Discussed diagnosis with patient. We will send in Rx of prednisone taper to use as directed. Continue leqg-xhi-iqogjar Benadryl/Zyrtec or Claritin. Advised patient to avoid hot showers/baths encouraged use of cool compresses. Patient needs to follow-up with PCP if this rash does not improve with treatment. Immediate evaluation in ER for signs and symptoms as discussed. Patient verbalizes understanding and is agreeable to treatment plan. [facility] 04-14-2023 Evaluation note* Encounter Date Diagnosis [...] concerns Feb, Acute cough (ICD-10 - R05.1) [facility] 04-12-2022 Evaluation note* Encounter Date Diagnosis Assessment Notes Treatment Notes Treatment Clinical Notes Feb, Infected tooth (ICD-10 - K04.7) Take medications as directed.Highly encourage patient to contact dentist TIARA for further treatment of infection. Do not take OTC medications like ibuprofen with prescriptions [facility] Other Evaluation + Plan note No data available for this section [facility] [place] Evaluation note* Diagnosis Severe persistent asthma with (acute) exacerbation (CMS/HCC)- Primary documented in this encounter [facility]* Diagnosis Acute pain [...] encounter [facility]* Diagnosis Onychodystrophy- Primary Other specified disease of nail Onychomycosis Dermatophytosis of nail documented in this encounter [facility]* Diagnosis Chronic bronchitis, unspecified chronic bronchitis type (HCC)- Primary Chronic rhinitis [facility] - Reported* Type Description Date Medical History Benign essential HTN Surgical History knee surgery Surgical History shoulder surgery Surgical History tonsillectomy and adenoidectomy Surgical History wisdom teeth Surgical History vasectomy Hospitalization History see above [facility] Other History general Narrative - Reported* Type Description Date Medical History Benign essential HTN Medical History High cholesterol Surgical History knee surgery Surgical History shoulder surgery Surgical History tonsillectomy and adenoidectomy Surgical History wisdom teeth Surgical History vasectomy Surgical History stent 2021 Hospitalization History see above [facility] Other Hospital Discharge instructions No data available for this section [facility] [place] Progress note No data available for this section [facility] [place] Summary Purpose Family History No Family History [...] DATE CREATED AUTHOR AUTHOR'S ORGANIZ ATION 07/18/2025 [facility] DATE CREATED AUTHOR AUTHOR'S ORGANIZ ATION 07/19/2025 [facility] DATE CREATED AUTHOR AUTHOR'S ORGANIZ ATION 08/10/2025 [facility] EPIC Care Teams (unrecognized sec tion and content) Quill Worker Relationship Specialty Start Date End Date Lambert Jose MD [address] [place] [address] PCP - General 06/05/23 Quill Worker Relationship Specialty Start Date End Date Lambert Jose MD [address] [place] [address] PCP - General 06/05/23 Quill Worker Relationship Specialty Start Date End Date Lambert Jose MD [address] [place] [address] PCP - General 06/05/23 Quill Worker Relationship Specialty Start Date End Date Lambert Jose MD [address] [place] [address] PCP - General 06/05/23 Quill Worker Relationship Specialty Start Date End Date Lambert Jose MD [address] [place] [address] PCP - General 06/05/23 Quill Worker Relationship Specialty Start Date End Date Lambert Jose MD [address] [place] [address] PCP - General 06/05/23 Quill Worker Relationship Specialty Start Date End Date Lambert Jose MD [address] [place] [address] PCP - General 06/05/23 Quill Worker Relationship Specialty Start Date End Date Lambert Jose MD [address] [place] [address] PCP General 06/05/23 FOR RECORDS PERTAINING TO [...] BE BASED ON THE PRIMARY CLINICAL RECORDS. [facility], [facility]. provides no warranty or guarantee of the accuracy or completeness of information in this document.
[2025-08-20 07:55] VITALS: BP 130/96; PULSE 68; TEMP 36.4; O2SAT 96; BMI 37.6
[2025-08-20 09:52] VITALS: BP 125/71; PULSE 68; TEMP 36.1; O2SAT 96
[2025-08-20 10:07] VITALS: BP 132/93; PULSE 65; O2SAT 95
[2025-08-20 10:22] VITALS: BP 136/86; PULSE 60; O2SAT 95
== END 2025-08-20 10:22 | disposition home or self-care (01) ==
LOC: SURGOUT 07:48
PROVIDERS: PCP Family Medicine; Visit Provider Surgery
PROC: (CPT 813; principal; 2025-08-20 08:55)
DX: K21.9 Gastro-esophageal reflux disease without esophagitis (principal); D50.9 Iron deficiency anemia, unspecified; Z86.0102 Personal history of hyperplastic colon polyps; Q43.8 Other specified congenital malformations of intestine; I10 Essential (primary) hypertension; I25.10 Atherosclerotic heart disease of native coronary artery without angina pectoris; J44.9 Chronic obstructive pulmonary disease, unspecified; G47.33 Obstructive sleep apnea (adult) (pediatric); Z87.891 Personal history of nicotine dependence; E78.5 Hyperlipidemia, unspecified; Z95.5 Presence of coronary angioplasty implant and graft; Z87.442 Personal history of urinary calculi; E66.01 Morbid (severe) obesity due to excess calories; Z68.37 Body mass index [BMI] 37.0-37.9, adult; M19.90 Unspecified osteoarthritis, unspecified site
CPT/HCPCS: 43235; 45378; J2704

== ENCOUNTER 2025-09-11 15:45 | Outpatient (OUT) | payer OTHER, SELFPAY ==
--- OUTSIDE RECORDS SUMMARY | 2025-09-11 15:49 | XMS_ITS | Clinical Summary ---
Author Organization [employer] tem Address [id number] [address] [place] [address] Care Team Providers Care Machine Tester Name Role Phone Ben Jose MD Primary Care Provider [phone] Allergies No known active allergies Medications MedicationSigDispense QuantityRefillsLast FilledStart DateEnd DateStatus olmesartan (BENICAR) 40 mg tablet Take 40 mg by mouth daily.Active WELCHOL 625 mg tablet Take 4 tablets by mouth daily.05/30/2018Active albuterol (PROVENTIL HFA;VENTOLIN HFA) 90 mcg/actuation inhaler Inhale 2 puffs every 4 (four) hours as needed for wheezing. 18 g 111Active carvedilol (COREG) 12.5 mg tablet Take 1 tablet (12.5 mg total) by mouth 2 (two) times a day. 180 tablet Active Additional Information Patient taking differently: 25 mgoralDaily, Reported on 04/26/2019 glycopyrrolate-formoterol (BEVESPI AEROSPHERE) 9-4.8 mcg HFA aerosol inhaler Inhale 2 puffs 2 (two) times a day. 4 Inhaler 12/13/2018Active nabumetone (RELAFEN) 500 mg tablet Take 1,000 mg by mouth 2 (two) times a day.Active Active Problems ProblemNoted DateDiagnosed DateShortness of oyzyuj5411/22/2018Hyperplastic polyp of gcgpvybhe28/28/2017Hypertension Immunizations ImmunizationAdministration DatesNext JwmTvpt5704/30/2019 Family History Medical HistoryRelationNameCommentsHeart diseaseFatherLeukemiaMotherRelationName StatusCommentsFatherDeceasedMotherDeceased Social History Tobacco UseTypesPacks/DayYears UsedDateSmoking Tobacco: FormerCigarettes1.525 10/07/1992 - 10/07/2017Smokeless Tobacco: Never Tobacco Cessation:Ready to Q uit: Yes Alcohol UseStandard Drinks/WeekCommentsNo0 (1 standard drink = 0.6 oz pure alcohol)ChildcareAnswerDate CeyyairvJzocvmwzmHcadibt62/06/2019EmploymentAnswer Date JsnqzkciIfctnjaoqdYaknzww77/06/2019Purpose - LifeAnswerDate RecordedPurpose and direction in pgpwOndzyrw28/11/2021ex and Gender InformationValueDate RecordedSex Assigned at BirthNot on fileLegal KnuBulf9006/11/2015 11:43 AM EDT Gender IdentityNot on fileSexual OrientationNot on file Last Filed Vital Signs Vital SignReadingTime TakenCommentsBlood Mdpsepbu165/0267404/30/2019 8:42 PM EDT Qcxgw783304/30/2019 8:42 PM VZNImyvfydznnq31.7 ??C (98.1 ??F)04/30/2019 8:42 PM EDTRespiratory Hijv365404/30/2019 8:42 PM EDTOxygen Wnmivjughq30%04/30/2019 8:42 PM EDTInhaled Oxygen Concentration--Dlpcfi075.9 kg (240 lb)04/30/2019 8:42 PM BPXUzylpj471.2 cm (5' 7 )04/30/2019 8:42 PM EDTBody Mass Index37.59004/30/2019 8:42 PM EDT Plan of Treatment Health MaintenanceDue DateLast DoneCommentsDepression Nkwtfhhgm82/02/1976Tobacco Tehxvweuq93/02/1976Adult BMI Gpvgktckl65/02/1982Zoster (Shingles) Vaccine (1 of 2)2013Influenza Wtdwdxo7607/07/2025DTaP,Tdap and Td Vaccines (2 - Td or Tdap)RSV ( or age 60+ yrs) (1 - 1-dose 75+ series) 2038 [employer] Not on file Insurance MemberSubscriberPlan / Payer (Effective 2018-Present)Name:Sajan Humphreys Relation to Subscriber:SelfName:Sajan Humphreys Payer ID:Not on file Type:Not on file Address: [place] [id number] Care Teams Team MemberRelationshipSpecialtyStart DateEnd Date Ben Jose MD [facility]03/28/17
--- OUTSIDE RECORDS SUMMARY | 2025-09-11 15:49 | XMS_ITS | Patient Health Record ---
Author Organization [facility] Address [address] [place] [address] Care Team Providers Care Special Education Paraeducator Name Role Phone Ben Jose Primary Care Provider Unavailabl e Allergies No Known Allergies Reason For Referral No Information Medications Medication SIG (Take, Route, Frequency, Duration) Notes Start Date End Date Status Baby Aspirin prn ActiveatorvastatinActivedoxazosinActiveclopidogrelActivelisinoprilActive furosemideActiveferrous sulfateActiveDICLOFENAC SODIUMActivecarvedilolActive fenofibrateActive Social History Tobacco Use: Social History Observation Description Date Details (start date - stop date) Former Smoker NA - NA AUDIT-C (Standard) Question Answer Notes Did you have a drink containing alcohol in the p ast year? No Pxeuwq0CpfosqsnbiyrwgHrydztguNjifltk Control (Standard) Question Answer Notes Tobacco use: Former smoker Problems Problem Type SNOMED Code ICD Code Onset Dates Problem Status W/U Status Risk Notes Problem 29779891 Radiculopathy, cervical shira on (M54.12) QkyerjpymeavihtPtsthoj11201630Jfoimb stenosis, cervical region (M48.02)Active yuwlhwuvsPtwhxph397731294Msgji cervical disc displacement at C6-C7 level (M50.223)OacvxkjcwbofcmmYlfznaa79943841Ganer cervical disc degeneration at C6-C7 level (M50.323)VjghpiyqqxddkpyAzfkyls38706614Afmsk cervical disc degeneration, high cervical region (M50.31)Activeconfirmed Plan Of Treatment Pending Test Test Name Order Date SFS - Cervical Spine PT Orde r, Isometrics & Strenghening w/Modalities as needed. 2-3 x Week for 4-6 Weeks 08/09/2024 Insurance Providers Payer Name Payer Address Payer Phone Subscriber Number Group Number Insured Name Patient Relationship to Insured Coverage Start Date Coverage End Date [employer] [address] [place] [address] [id number] PARAS GRIGSBY Self - patient is the insured Medical (General) History Medical History History ICD Code High Blood Pressure AsthmaKidney stonesSleep apneaDo you have a CPAP machine? YesDo you use the CPAP machine? YesSurgical History Surgery Date(Month/Year) Knees HerniaShoulder
--- OUTSIDE RECORDS SUMMARY | 2025-09-11 15:50 | XMS_ITS | Patient Health Record ---
Author Organization [facility] in [place] Address [address] [place] [address] Care Team Providers Care Histology Assistant Name Role Phone Joe Jose Primary Care Provider Allergies No Known Allergies Results Component Value Reference Range Notes CBC AUTO DIFF Reviewed date:04/24/2025 07:09:42 PM Interpretation: Performing Lab: Notes/Report: [facility] , White Blood Count 7.1 4.0-11.0 10 3/uL Red Blood Count3.864.70-6.10 10 6/yKQgcethngbq76.914.0-18.0 g/eKRezqiagnsl11.0 42.0-54.0 %Mean Corpuscular Qaujzr14.780.0-94.0 fLMean Corpuscular Hemoglobin 30.825.9-34.0 pgMean Corpuscular HGB Conc34.029.9-35.2 g/dLRed Cell Distribution Width13.211.0-15.0 %Platelet Jixbv065259-970 10 3/uLMean Platelet Haelqo67.19.5- 13.5 fLNeutrophils Percent Auto51.543.0-75.0 %Lymphocytes Percent Auto34.620.5- 60.0 %Monocytes Percent Auto8.31.7-12.0 %Eosinophils Percent Auto2.80.9-7.0 % Basophils Percent Auto1.00.2-2.0 %Immature Granulocytes Pct Auto1.80.0-0.5 % Neutrophils Absolute Auto3.71.4-6.5 10 3/uLLymphocytes Absolute Auto2.51.2-3.8 10 3/uLMonocytes Absolute Auto0.60.3-0.8 10 3/uLEosinophils Absolute Auto0.20.0- 0.7 10 3/uLBasophils Absolute Auto0.10.0-0.1 10 3/uLImmature Granulocytes Abs Auto0.130.00-0.03 10 3/uLPerforming Lab:see noteML - [facility] LB LIPID PROFILE Reviewed date:04/24/2025 07:09:42 PM Interpretation: Performing Lab: Notes/Report: [facility] ,Dvcldjqqfuonj214<=150 mg/oUPqwszwsyrvm93<=200 mg/dLHDL Bfvflpyrhpy7305-39 mg/dL > or =60 mg/dl - LOW CARDIOVASCULAR RISK <40 mg/dl - HIGH CARDIOVASCULAR RISK LDL Cholesterol Calculated7.0 <100 mg/dl OPTIMAL 100-129 mg/dl NEAR OR ABOVE OPTIMAL 130-159 mg/dl BORDERLINE HIGH 160-189 mg/dl HIGH >190 mg/dl VERY HIGH VLDL VHOZXYMFIZE21.2Chol HDL Ratio2.3 3.3 - 4.4 LOW RISK 4.4 - 7.1 AVERAGE RISK 7.1 - 11.0 MODERATE RISK >11.0 HIGH RISK Performing Lab:see noteML - [facility] LBPROF 14(COMP METB) Reviewed date:04/24/2025 07:09:42 PM Interpretation: Performing Lab: Notes/Report: [facility] ,Mmhwig420683-671 mmol/LPotassium4.33.5-5.1 mmol/CNzluhrmj06934-588 mmol/LCarbon Osidzne32.821.0-32.0 mmol/LAnion Gap13.3Hzxastq06848-538 mg/dLBlood Urea Tqsbewvq38.07.0-18.0 mg/dLCreatinine0.990.70-1.30 mg/dLEstimated GFR ( Rosemary>60>=60 mL/min/1.73m 2Estimated GFR (Non- Nicole>60>=60 mL/min/1.73m 2BUN Creatinine Ratio20.5Islqwrx3.78.5-10.1 mg/dLBilirubin Total0.30.2-1.0 mg/dL Aspartate Amino Blhrltlocrc0558-52 U/LAlanine Jaonimkiancpafze6174-42 U/L Alkaline Zrmgpfshtkz8207-229 U/LTotal Protein6.66.4-8.2 g/dLAlbumin Level3.33.4- 5.0 g/dLGlobulin3.3Albumin Globulin Ratio1.0Performing Lab:see noteML - [facility] LBFREE T3 Reviewed date:05/15/2025 07:12:38 PM Interpretation: Performing Lab: Notes/Report: [facility] ,Free T31.312.18-3.98 pg/mLPerforming Lab:see noteML - [facility] LB PSA Reviewed date:05/15/2025 07:12:38 PM Interpretation: Performing Lab: Notes/Report: [facility] ,Prostate Specific Antigen Dx1.21<=4.00 ng/mLPerforming Lab:see noteML - [facility] LBT4 Reviewed date:05/15/2025 07:12:38 PM Interpretation: Performing Lab: Notes/Report: [facility] ,T4 Thyroxine6.104.50-12.10 ug/dLPerforming Lab:see noteML - [facility] LBTSH Reviewed date:05/15/2025 07:12:38 PM Interpretation: Performing Lab: Notes/Report: [facility] ,Thyroid Stimulating Hormone1.6540.358-3.740 uIU/mLPerforming Lab:see noteML - [facility] LBC. Difficile PCR Reviewed date:05/18/2025 04:45:05 PM Interpretation: Performing Lab: Notes/Report: [facility] ,C. Difficile PCRPOSITIVERESULTS CALLED TO DR. Hooverforming Lab:see noteML - [facility] LBE coli Shiga Toxin EIA Reviewed date:05/21/2025 08:24:52 PM Interpretation: Performing Lab: Notes/Report: [facility] ,E coli Shiga Toxin EIASee Below For Report E coli Shiga Toxin EIA E coli Shiga Toxin EIANegative E coli Shiga Toxin EIA E coli Shiga Toxin EIAPerformed at: - [facility] E coli Shiga Toxin EIA E coli Shiga Toxin [id number] [place], [place] [id number] E coli Shiga Toxin EIA E coli Shiga Toxin EIALab Director: Marv Cartagena PhD, Phone: [phone] E coli Shiga Toxin EIA Performing Lab:see note LC - [facility] LB SEE REPORT - Relay Adjuster Id information not found for OBX-specific dramatic director legend Salmonella/Shigella Screen Reviewed date:05/24/2025 03:45:05 PM Interpretation: Performing Lab: Notes/Report: [facility] ,Salmonella/Shigella ScreenSee Below For Report Salmonella/Shigella Screen Salmonella/Shigella ScreenNo Salmonella or Shigella recovered. Salmonella/Shigella Screen Performing Lab:see noteLC - [facility] LBE coli Shiga Toxin EIA Reviewed date:05/24/2025 03:45:05 PM Interpretation: Performing Lab: Notes/Report: [facility] ,E coli Shiga Toxin EIASee Below For Report E coli Shiga Toxin EIA E coli Shiga Toxin EIANegative E coli Shiga Toxin EIA E coli Shiga Toxin EIAPerformed at: [facility] E coli Shiga Toxin EIA E coli Shiga Toxin [id number] [place], [place] [id number] E coli Shiga Toxin EIA E coli Shiga Toxin EIALab Director: aMrv Cartagena PhD, Phone: [phone] E coli Shiga Toxin EIA Performing Lab:see note LC - [facility] LB SEE REPORT - Relay Adjuster Id information not found for OBX-specific dramatic director legend CBC AUTO DIFF Reviewed date:06/11/2025 12:51:27 PM Interpretation: Performing Lab: Notes/Report: [facility] ,White Blood Count5.84.0-11.0 10 3/uLRed Blood Count3.794.70-6.10 10 6/uL Wlydjdfsnu66.414.0-18.0 g/xPHbijjfebdx43.242.0-54.0 %Mean Corpuscular Nuaxca01.2 80.0-94.0 fLMean Corpuscular Whuhlclobc28.125.9-34.0 pgMean Corpuscular HGB Conc 33.329.9-35.2 g/dLRed Cell Distribution Width13.911.0-15.0 %Platelet Ngcrs794 150-450 10 3/uLMean Platelet Dhfbha44.79.5-13.5 fLNeutrophils Percent Auto46.5 43.0-75.0 %Lymphocytes Percent Auto37.820.5-60.0 %Monocytes Percent Auto9.01.7- 12.0 %Eosinophils Percent Auto5.50.9-7.0 %Basophils Percent Auto1.00.2-2.0 % Immature Granulocytes Pct Auto0.20.0-0.5 %Neutrophils Absolute Auto2.71.4-6.5 10 3/uLLymphocytes Absolute Auto2.21.2-3.8 10 3/uLMonocytes Absolute Auto0.50.3-0.8 10 3/uLEosinophils Absolute Auto0.30.0-0.7 10 3/uLBasophils Absolute Auto0.10.0- 0.1 10 3/uLImmature Granulocytes Abs Auto0.010.00-0.03 10 3/uLPerforming Lab:see noteML - [facility] LBFREE T3 Reviewed date:06/11/2025 12:51:27 PM Interpretation: Performing Lab: Notes/Report: [facility] ,Free T32.122.18-3.98 pg/mLPerforming Lab:see noteML - [facility] PROF CHEM 8 (BAS METB) Reviewed date:06/11/2025 12:51:27 PM Interpretation: Performing Lab: Notes/Report: [facility] ,Ixzusa160872-534 mmol/LPotassium3.83.5-5.1 mmol/MIoulyxdk91951-227 mmol/LCarbon Xkdnfuk79.921.0-32.0 mmol/LAnion Gap10.3Qfaayfu63766-990 mg/dLBlood Urea Rdmpaaio72.07.0-18.0 mg/dLCreatinine1.210.70-1.30 mg/dLEstimated GFR ( Rosemary>60>=60 mL/min/1.73m 2Estimated GFR (Non- Nicole>60>=60 mL/min/1.73m 2BUN Creatinine Ratio18.4Swybqmc6.08.5-10.1 mg/dLPerforming Lab:see noteML - [facility] LBT4 Reviewed date:06/11/2025 12:51:27 PM Interpretation: Performing Lab: Notes/Report: [facility] ,T4 Thyroxine6.104.50-12.10 ug/dLPerforming Lab:see noteML - [facility] LBTSH Reviewed date:06/11/2025 12:51:28 PM Interpretation: Performing Lab: Notes/Report: [facility] ,Thyroid Stimulating Hormone1.6440.358-3.740 uIU/mLPerforming Lab:see noteML - [facility] LBCA echo doppler complete Reviewed date:06/25/2025 07:16:01 PM Interpretation: Performing Lab: Notes/Report: Source Facility: [facility]-[address] [place] [address] Cardiology Report Signed Patient: SAJAN GRIGSBY MR#: [id number] : 1965 Acct:[id number] Age/Sex: 59 / M ADM Date: 06/25/25 Loc: CARD Attending Dr: ISAAC TANG APRN Ordering Physician: ISAAC TANG APRN Date of Service: 06/25/25 Procedure(s): CA echo doppler complete Accession Number(s): [id number] cc: Ben Jose M.D.; ISAAC TANG APRN Patient Name: SAJAN GRIGSBY MR#: [id number] : 1965 Exam Date: 06/25/2025 Ordering Doctor: ISAAC TANG CROWD CONTROLLER ECHOCARDIOGRAM REPORT PROCEDURE: CA ECHO DOPPLER COMPLETE [...] Area (VTI): 3.21 cm2, 3.21 cm2 Deceleration Manatee: 1.06 m/s2 Pressure Half-Time: 907.43 ms Peak [...] YU Signed By: 06/25/251816 DD/ 15 TD/TT: Records Management Analyst:MITCHELL T3 Reviewed date:07/10/2025 04:51:39 PM Interpretation: Performing Lab: Notes/Report: [facility] ,Free T31.892.18-3.98 pg/mLPerforming Lab:see noteML - [facility] LB T4 Reviewed date:07/10/2025 04:51:39 PM Interpretation: Performing Lab: Notes/Report: [facility] ,T4 Thyroxine4.904.50-12.10 ug/dLPerforming Lab:see noteML - [facility] LBTSH Reviewed date:07/10/2025 04:51:39 PM Interpretation: Performing Lab: Notes/Report: [facility] ,Thyroid Stimulating Hormone0.7310.358-3.740 uIU/mLPerforming Lab:see noteML - [facility] LBFREE T3 Reviewed date:08/12/2025 07:00:06 PM Interpretation: Performing Lab: Notes/Report: [facility] ,Free T31.952.18-3.98 pg/mLPerforming Lab:see noteML - [facility] LB T4 Reviewed date:08/12/2025 07:00:06 PM Interpretation: Performing Lab: Notes/Report: [facility] ,T4 Thyroxine4.204.50-12.10 ug/dLPerforming Lab:see noteML - [facility] LBTSH Reviewed date:08/12/2025 07:00:06 PM Interpretation: Performing Lab: Notes/Report: [facility] ,Thyroid Stimulating Hormone0.6510.358-3.740 uIU/mLPerforming Lab:see noteML - [facility] LBcolonoscopy Reviewed date:08/22/2025 10:07:27 AM Interpretation:Normal Performing Lab: Notes/Report: NormalCampylobacter Culture Reviewed date:05/24/2025 03:45:05 PM Interpretation: Performing Lab: Notes/Report: [facility] ,Campylobacter CultureSee Below For Report Campylobacter Culture No Campylobacter species isolated. Performing Lab:see noteLC - [facility] LB Reason For Referral Diagnosis 1 Anemia (D64.9) Referral Organization [facility] Referring Provider First Name Joe Referring Provider Last Name Rebeca Referring Provider Speciality Family Med [place] Referred Provider Lee Hampton Referred Provider Specialty General Surg [place] Referral Priority Routine Medications Medication SIG (Take, Route, Frequency, Duration) Notes Start Date End Date Status Clopidogrel Bisulfate 75 MG 1 tablet Orally Once a day ActiveCPAP Supplies --Mask and TubingActiveLisinopril 20 MG1 tablet Orally Once a dayActiveChlorthalidone 25 MG1 tablet orally once dailyActiveOzempic (0.25 or 0.5 MG/DOSE) 2 MG/3ML0.25 mg Subcutaneous weekly; Duration: 28 07/18/2024 ActiveVancomycin HCl 125 MG1 capsule Orally qid; Duration: 10 05/18/2025 ActiveFenofibrate 145 mgTAKE 1 TABLET DAILYActiveDupixent 300 MG/2MLas directed Subcutaneous every other weekActiveCarvedilol 25 mgTAKE 1/2 TABLET TWICE A DAY ActiveCPAP Supplies --Use mask and tubing via CPAP machine every evening; Duration: 90 12/07/2023ctiveAtorvastatin Calcium 80 MG1 tablet Orally Once a dayActiveFurosemide 20 MG1/2 tab Orally Once a dayActiveHyoscyamine Sulfate 0.125 MG1-2 tabs SL SL every 4 hrs PRN abd pain5ActiveCardura 4 MG1 tablet Orally Once a day; Duration: 90 daysActiveHyoscyamine Sulfate 0.125 MG1-2 tabs SL SL every 4 hrs PRN abd pain5ActiveLiothyronine Sodium 25 MCG1 tablet on an empty stomach Orally Once a day; Duration: 30 days5Active Aspirin Adult Low Dose 81 MG1 tablet Orally Once a dayActiveFeroSul 325 (65 Fe) MGTAKE 1 TABLET TWICE A DAYActiveLevothyroxine Sodium 50 MCG1 tablet in the morning on an empty stomach Orally Once a day; Duration: 30 days5Active Diclofenac Sodium 75 mgTAKE 1 TABLET TWICE A DAY NEEDEDActiveViagra 100 MG1 tablet as needed Orally Once a day; Duration: 30 day(s)5Active Vancomycin HCl 125 MG1 capsule Orally qid; Duration: 10 days5Active Immunizations Vaccine Route Administration Date Status Comme nts SARS-COV-2 (COVID 19 Moderna - Booster 0.25mL) Unknown 10/25/2021 Administered Tdap (Boostrix)Exqbzvw8204/30/2019Administered Social History Tobacco Use: Social History Observation Description Date Details (start date - stop date) Former Smoker NA - NA Tobacco Use/Smoking Question Answer Notes Patient is a former smoker How long has it been since you last smoked?5-10 yearsAdditional Findings: Tobacco Jdz-QposAd-koxsh cigarette smoker (20-30/day)Alcohol Screen (Audit-C) Question Answer Notes Did you have a drink containing alcohol in the p ast year? No Pcgxcm2KulbcrbuklarugHxrddtlsLZTEW-R (Standard) Question Answer Notes Did you have a drink containing alcohol in the p ast year? No Opsviq4XckjsdmxlmkfqjMfueupan Problems Problem Type SNOMED Code ICD Code Onset Dates Problem Status W/U Status Risk Notes Problem Morbid obesity (disorder) (12915 5797) Morbid (severe) obesity due to excess calories (E66.01) ActiveconfirmedProblemHypermetropia (86334504)Hypermetropia, bilateral (H52.03) ActiveconfirmedProblemPresbyopia (02264076)Presbyopia (H52.4)Activeconfirmed ProblemSudden visual loss (64232920)Sudden visual loss, right eye (H53.131) ActiveconfirmedProblemCentrilobular emphysema (30478709)Centrilobular emphysema (J43.2)ActiveconfirmedProblemUncomplicated moderate persistent asthma (664481410)Moderate persistent asthma, uncomplicated (J45.40)Activeconfirmed ProblemInflammatory dermatosis (195408288)Other specified dermatitis (L30.8) ActiveconfirmedProblemJoint pain (88437567)Pain in unspecified joint (M25.50) ActiveconfirmedProblemLocalized swelling, mass and lump, right lower limb (R22.41)ActiveconfirmedProblemAngioneurotic edema (06928205)Angioneurotic edema, initial encounter (T78.3XXA)ActiveconfirmedProblemLong-term current use of inhaled steroid (938417388)residential (current) use of inhaled steroids (Z79.51) ActiveconfirmedProblemChest pain (42190731)Chest pain (R07.9)Activeconfirmed ProblemHypertension (48595461)Hypertension (I10)ActiveconfirmedProblemMale hypogonadism (36912954)Hypogonadism male (E29.1)ActiveconfirmedProblemCervical radiculopathy (14317362)Cervical radiculopathy (M54.12)ActiveconfirmedProblem Hypothyroidism (46315877)Hypothyroidism (E03.9)ActiveconfirmedProblemCoronary artery disease (64149853)Coronary artery disease (I25.10)ActiveconfirmedProblem Anemia (971443400)Anemia (D64.9)ActiveconfirmedProblemDyspnea (968331632)Dyspnea (R06.00)ActiveconfirmedProblemSleep apnea (79403967)Sleep apnea (G47.30)Active confirmedProblemObstructive sleep apnea (90199243)Obstructive sleep apnea (G47.33)ActiveconfirmedProblemMalaise (242804997)Malaise (R53.81)Activeconfirmed ProblemBarrett esophagus (186909322)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)Activeconfirmed ProblemHypertriglyceridemia (113236135)Hypertriglyceridemia (E78.1)Active confirmedProblemArthralgia (45939025)Arthralgia (M25.50)ActiveconfirmedProblem Well adult (760390366)Well adult (Z00.00)ActiveconfirmedProblemIrritable bowel syndrome (63543088)Irritable bowel syndrome (K58.9)ActiveconfirmedProblem Cervical disc disease (850366846)Cervical disc disease (M50.90)Activeconfirmed ProblemNear syncope (459496321)Near syncope (R55)ActiveconfirmedProblem Overweight (593080218)Over weight (E66.3)ActiveconfirmedProblemEssential tremor (239000174)Benign essential tremor (G25.0)ActiveconfirmedProblemIncreased immunoglobulin (700924878)Elevated IgE level (R76.8)ActiveconfirmedProblemEx- tobacco user (finding) (478338960)History of tobacco abuse (Z87.891)Active rmszcpxoe02 pack-year historyProblemMass of neck (384273886)Mass in neck (R22.1) ActiveconfirmedProblemUmbilical hernia (234904335)Hernia, umbilical (K42.9) ActiveconfirmedProblemChronic obstructive pulmonary disease (28909873)COPD, moderate (J44.9)ActiveconfirmedProblemAcute exacerbation of chronic obstructive airways disease (973149121)Acute exacerbation of chronic obstructive airways disease (J44.1)ActiveconfirmedProblemOtitis media (74629281)Unspecified otitis media (H66.90)ActiveconfirmedProblemHypertensive retinopathy (9297007) Hypertensive retinopathy (H35.039)ActiveconfirmedProblemEssential hypertension (12722926)Essential Hypertension (I10)ActiveconfirmedProblemCarpal tunnel syndrome (03426733)Carpal tunnel syndrome, bilateral upper limbs (G56.03)Active confirmedProblemHistory of headache (650748579)H/O headache (Z87.898)Active confirmedProblemSecondary pulmonary hypertension (78344308)Other secondary pulmonary hypertension (I27.29)ActiveconfirmedProblemDisorder of pharynx (90396759)Disorder of pharynx (J39.2)ActiveconfirmedProblemOropharyngeal lesion (38631806665874)Oropharyngeal lesion (J39.2)ActiveconfirmedProblemHistory of COVID-19 (887331333922193394)History of COVID-19 (Z86.16)Activeconfirmed06/11/2022 ProblemLow back pain (290926254)Low back pain, unspecified (M54.50)Active confirmed Vital Signs Temperature 99.0 degrees Fahrenheit 04/10/2025 Blood pressure mm Hg05/22/20255368Edyxtk93 in05/22/2025lood pressure zeszqsmy869 mm Hg05/22/20254747Yqtyom491 lbs05/14/2025BMI39.62 kg/m205/14/2025 Encounters Encounter Location Date Provider Diagnosis [facility] [address] [facility] [place] [address] 04/16/2025 [facility] [facility] [place] [address] 04/16/2025Doug [facility] [facility] [place] [address]/Doug [facility] [facility] [place] [address]/08/2025Doug HoyHypothyroidism E03.9BPresbyterian[facility] [facility] [place] [address]/Doug [facility] [facility] [place] [address] 05/18/2025Doug [facility] [facility] [place] [address]/Doug [facility] [facility] [place] [address]/Doug [facility] [facility] [place] [address]/Doug [place] [id number] [facility] [place] [address]/Doug [place] [id number] [facility] [place] [address]/04/2025 Joe HoyHypothyroidism E03.9 and Anemia D64.9[facility] [address] [place] [address]/Doug [place] [address] [facility] [place] [address]/02/2025Doug Hoy Hypothyroidism E03.9BJason [place] [address] [facility] [place] [address]/05/2025Doug HoyHypothyroidism E03.9B[address] [place] [address]/07/2025Doug Hoy Gastroenteritis K52.9BJason [place] [address] [facility] [place] [address]/03/2025Doug HoyAcute bronchitis, unspecified organism J20.9B[address] [place] [address] 05/22/2025Doug HoyHypertension I10 Assessments Encounter Date Diagnosis (ICD Code) Assessment Notes Treatment Notes Treatment Clinical Notes Section Notes 04/10/2025 Acute bronchitis, unspecified or ganism (ICD-10 - J20.9) Rest and drink more liquids, especially water. You may use a humidifier or vaporizer to help keep the drainage moist. Edmm-uxl-mjbplqu Nasal Saline may help the stuffy and runny nose. Use Ibuprofen and or Tylenol as needed for fever, chills, body aches or pain. Children 5 years old should not be given hbks-gqu-hxitjhn cough and cold medications such as guaifenesin and dextromethorphan. If you're over age 5, you may try oetw-vxy-ivkzhdv cold medications such as guaifenesin and dextromethorphan, or multi-symptom cold reliever such as Dayquil to help reduce the symptoms. Antibiotics have been pre scribed. You should take these until completed and follow the directions. Antibiotics can sometimescause upset stomach, and in rare cases, serious allergic reactions or serious gastrointestinal problems. If you start having severe abdominal pain, severe vomiting, or bloody diarrhea, you should be r eevaluated by your physician or urgent care immediately. Follow up with your Primary Care Provider or return to clinic if symptoms do not improve within 3-5 days. If you develop severe symptoms such as shortness of breath, repeated vomiting, coughing up blood, or chest pain you should go to the emergency room or call [id number] (ICD-10 - K52.9)Get plenty of rest. Stay hydrated by sucking on ice chips or taking small sips of water. You can also try drinking clear soda, clear broths or noncaffeinated sports drinks. Stop eating solid foods for a few hours to let your stomach settle. East back into eating by eating bland, pxht-kk-amkjvj foods like crackers, toast, gelatin, bananas, rice and chicken. Try to avoid foods/substances including dairy products, caffeine, alcohol, nicotine and fatty or highly seasoned foods. Medications such as i buprofen or tylenol can make your stomach more upset, so use sparingly if at all. Also avoid geps-bbu-xpozzgx anti-diarrheal medications because it can make it harder for your body to eliminate the virus.05/22/2025Hypertension (ICD-10 - I10)05/15/2025Hypothyroidism (ICD-10 - E03.9)06/11/2025Hypothyroidism (ICD-10 - E03.9)06/11/2025nemia (ICD-10 - D64.9)07/10/2025Hypothyroidism (ICD-10 - E03.9) 08/12/2025Hypothyroidism (ICD-10 - E03.9) Plan Of Treatment Pending [...] Coverage Start Date Coverage End Date MMO [employer] [address] [place] [address] [id number] Yaya Grigsby - patient is the spouse of the insured Medications Administered Medication Instructions Date of Administration Dosage Notes Kenalog-40 3120 mg120 Medical (General) History Medical History History ICD [...] G47.33 Other secondary pulmonary hypertension I 27.29 intermediate accountant (current) use of inhaled stero ids Z79.51 Surgical History Surgery Date(Month/Year) EGD/Colonoscopy, Dr. Hampton 08/20/25 hernia repair torn meniscus repair bilatbilat rotator cuff repair
--- OUTSIDE RECORDS SUMMARY | 2025-09-11 15:50 | XMS_ITS | Clinical Summary ---
Author Organization [facility] Healthcare Address [address] [place] [address] Care Team Providers Care Mds Coordinator Name Role Phone Ben Jose MD Primary Care Provider [phone] Allergies No known active allergies Medications MedicationSigDispense QuantityRefillsLast FilledStart DateEnd DateStatus hydrOXYzine HCl (Atarax) 50 MG tablet Take by mouth.Active aspirin 81 MG chewable tablet CHEW AND SWALLOW 1 TABLET IN THE YXTIKGY1108/03/2022ctive lisinopril 20 MG tablet Take by mouth Daily.Active atorvastatin (Lipitor) 80 MG tablet Take 80 mg by mouth at tkfbcpn5408/03/2022ctive carvedilol (Coreg) 25 MG tablet Take 1 tablet by mouth in the morning and 1 tablet before bedtime.Active clopidogrel (Plavix) 75 MG tablet Take 75 mg by mouth in the morning.09/06/2023ctive doxazosin (Cardura) 4 MG tablet Take 1 tablet by mouth DailyActive fenofibrate (Tricor) 145 MG tablet Take 145 mg by mouth in the morning.Active ferrous sulfate 325 (65 Fe) MG tablet Take 325 mg by mouth in the morning. Take with meals.Active diclofenac (Voltaren) 75 MG EC tablet Take 75 mg by mouth in the morning and 75 mg before bedtime. Do not crush, chew, or split..Active furosemide (Lasix) 40 MG tablet 11/05/2024ctive Active Problems ProblemNoted DateDiagnosed DateSevere persistent asthma with acute exacerbation 4COPD (chronic obstructive pulmonary disease)08/04/2022Essential /29/2022AD in [place] iadoao0408/03/2022History of coronary artery stent tgntpolwa66/28/2022 Encounters DateTypeDepartmentCare UfldAxqibgixfbg22/29/2025 4:00 PM EDTOffice Visit [facility] [address] [place] [phone] Cesar Dunham MD Chronic bronchitis, unspecified chronic bronchitis type (HCC) (Primary Dx); Chronic prwhgyuy10/29/2025amboo flowsheet [facility] [address] [place] [phone] Cesar Dunham MD 08/04/2025Travelfrom Last 3 Months Family History Medical HistoryRelationNameCommentsHeart diseaseFatherPoonHeart diseaseMaternal GrandfatherDiabetesMaternal GrandmotherEdnaHypertensionMaternal GrandmotherEdna DiabetesMotherEdnaNo Known ProblemsPaternal GrandfatherNo Known ProblemsPaternal GrandmotherRelationNameStatusCommentsFatherPoonDeceasedMaternal Grandfather DeceasedMaternal GrandmotherEdnaDeceasedMotherEdnaAlivePaternal Grandfather DeceasedPaternal GrandmotherDeceased Social History Tobacco UseTypesPacks/DayYears UsedDateSmoking Tobacco: FormerCigarettes 12/11/1986 - 10/27/2011Smokeless Tobacco: FormerSnuffQuit: 12/11/1994 Tobacco Cessation:Counseling Given: Not Answered Alcohol UseStandard Drinks/WeekCommentsNot Currently0 (1 standard drink = 0.6 oz pure alcohol)Caffeine intake: >4 cups per daySex and Gender InformationValueDate RecordedSex Assigned at CrrheYemr76/31/2023 3:46 PM EDTLegal BlrVtlt3701/18/2023 7:06 PM EDTGender YzdcbryrMyjr85/31/2023 3:46 PM EDTSexual OrientationNot on file Last Filed Vital Signs Vital SignReadingTime TakenCommentsBlood Qrsbdwqg316/7606 12:00 PM EDT Pulse--Temperature--Respiratory Rate--Oxygen Saturation--Inhaled Oxygen Concentration--Eohdgb043 kg (258 lb)04/30/2025 4:14 PM HPGGvnyip819.2 cm (5' 7 ) 04/30/2025 4:14 PM EDTBody Mass Index40.41004/30/2025 4:14 PM EDT Plan of Treatment Health MaintenanceDue DateLast DoneCommentsCT Cpbxzsqijvcj00/02/1964Colonoscopy 1963Colorectal Cancer Korbmeywa50/02/1964FIT-DNA1963FIT1963 FOBT1963 3444Unxvxyaibwbqf47/02/1964COVID-19 Vaccine (2024- season) , 02/16/2021, 01/19/2021Influenza Vaccine (#1)2025 Pneumococcal Vaccine: Pediatrics (0 to 5 Years) and At-Risk Patients (6 to 64 Years)Aged OutNo longer eligible based on patient's age to complete this topic Insurance Care Teams Team MemberRelationshipSpecialtyStart DateEnd Date Ben Jose MD [address] [place] [id number] [facility]06/05/23
--- OUTSIDE RECORDS SUMMARY | 2025-09-11 15:50 | XMS_ITS | Clinical Summary ---
Author Organization [facility] Address [address] [place] [address] Care Team Providers Care Feather Maker Name Role Phone Ben Jose MD Primary Care Provider [phone] Allergies No known active allergies Medications MedicationSigDispense QuantityRefillsLast FilledStart DateEnd DateStatus carvedilol (Coreg) 12.5 mg tablet Take 12.5 mg by mouth with breakfast and with evening meal.Active doxazosin (Cardura) 4 mg tablet Take 4 mg by mouth at bedtime.Active fenofibrate (Tricor) 145 mg tablet Take 145 mg by mouth in the morning.Active aspirin 81 mg chewable tablet Indications:CAD in [place] arteryCHEW AND SWALLOW 1 TABLET IN THE MORNING 90 tablet 3Active diclofenac (Voltaren) 50 mg EC tablet Take 50 mg by mouth twice a day.Active FeroSuL 325 mg (65 mg iron) tablet Take 1 tablet by mouth in the morning and at bedtime.4Active lisinopril 20 mg tablet Indications:Essential hypertensionTake 1 tablet (20 mg) by mouth in the morning. 90 tablet 5Active furosemide (Lasix) 40 mg tablet Indications:Edema, unspecified typeTAKE 1 TABLET IN THE MORNING 90 tablet 5Active liothyronine (Cytomel) 5 mcg tablet Take 15 mcg by mouth in the morning.5Active sildenafil (Viagra) 100 mg tablet Take 1 tablet by mouth in the morning.5Active clopidogrel (Plavix) 75 mg tablet Indications:CAD in [place] arteryTake 1 tablet (75 mg) by mouth once daily as directed. 90 tablet 5Active atorvastatin (Lipitor) 80 mg tablet Indications:CAD in [place] arteryTAKE 1 TABLET AT BEDTIME 90 tablet 5Active atorvastatin (Lipitor) 80 mg tablet Indications:CAD in [place] arteryTAKE 1 TABLET AT BEDTIME 90 tablet //Discontinued clopidogrel (Plavix) 75 mg tablet Indications:CAD in [place] arteryTAKE 1 TABLET IN THE MORNING 90 tablet Discontinued Active Problems ProblemNoted DateDiagnosed DateDOE (dyspnea on exertion)06/06/2025Hypertensive rpndvljshih63/13/2025Umbilical pfqsgg8004/18/2025Degeneration of intervertebral disc of cervical rjgdtl2510/07/2024Other cervical disc displacement at C6-C7 level 10/07/2024adiculopathy, cervical bkvfqb5410/07/2024Spinal stenosis, cervical xcyirc7410/07/2024Severe persistent asthma with acute xcupmdeipemu60/18/2024 11/27/2023Essential mgcsbthmihhh51/29/2022OPD (chronic obstructive pulmonary disease)08/04/2022/P drug eluting coronary stent hagimonoo75/29/2022AD in [place] sucefj7808/03/2022hest pain07/14/2022 Overview (07/14/2022): Added automatically from request for surgery 1216 Zatmjhe85Shortness of usdfjg48/17/Hyperplastic polyp of znystibzu31 Encounters DateTypeDepartmentCare CqrfJxuizbperni87/21/2025[facility] [address] [facility] [place] [address] Justino Serna MD CAD in [place] zwonwx8207/10/2025 1:[address] [facility] [address] [place] [facility] [place] [address] Ivet Jane CNP CAD in [place] artery (Primary Dx); VILLAVICENCIO (dyspnea on exertion); Non-cardiac chest pain; History of coronary artery stent placement; Benign hypertensive heart disease without congestive heart failure; Mixed hyperlipidemia; Pulmonary emphysema, unspecified emphysema type (CMS/HCC)06/26/2025Results Follow-Up [facility] [address] [place] [address] Ivet Jane CNP Complete Echo (TTE) w/wo Imaging Agent, Strain, 3D, Bubble Study06/26/2025Orders Only [facility] [address] [place] [address] ProviderCitlali MD 06/12/2025 12:30 PM EDT - 06/12/2025 1:45 PM EDTSurgery [facility] [address] [place] [address] Arturo Yu MD Coronary uepxvynedxa50/07/2025 10:51 AM EDT - 06/12/2025 3:50 PM EDTHospital Encounter [facility] [address] [place] [address] Arturo Yu MD CAD in [place] artery (Primary Dx); Chest pain, unspecified type; VILLAVICENCIO (dyspnea on exertion) Discharge Disposition: Home or Self Care ()06/12/2025Travelfrom Last 3 Months Family History Medical HistoryRelationNameCommentsCoronary artery diseaseFatherHeart failure FatherRelationNameStatusCommentsFatherDeceasedMotherDeceased Social History Tobacco UseTypesPacks/DayYears UsedDateSmoking Tobacco: QsqrzjGbhjoluive2088176 - 2011Passive Smoke Exposure: PastSmokeless Tobacco: FormerQuit: 2002 Tobacco Cessation:Counseling Given: Not Answered Alcohol UseStandard Drinks/WeekCommentsNot Currently0 (1 standard drink = 0.6 oz pure alcohol)[place] Safety & EnvironmentAnswerDate RecordedFear of Current or Ex-PartnerNot on file12/28/2023Emotionally AbusedNot on file12/28/2023hysically AbusedNot on file12/28/2023Sexually AbusedNot on file12/28/2023hysically or Sexually AbusedNot on file12/28/2023Sex and Gender InformationValueDate Recorded Sex Assigned at QebglRagg19/30/2025 3:27 PM EDTLegal WdpHtsr2005/04/2022 10:39 PM EDTGender HpmtbdxlInqw74/30/2025 3:27 PM EDTSexual OrientationHeterosexual or Ogcwnnps15/30/2025 3:27 PM EDT Last Filed Vital Signs Vital SignReadingTime TakenCommentsBlood Zkpbykdv820/7309 1:55 PM EDT Suhnu872207/10/2025 1:55 PM RCTIwiyurrsjvb25.8 ??C (98.2 ??F)08/04/2022 8:00 AM EDTRespiratory Pveo3825 3:45 PM EDTOxygen Fncbmrzohr76%07/10/2025 1:55 PM EDTInhaled Oxygen Concentration--Eiebyf061 kg (246 lb)07/10/2025 1:55 PM EDT Hdqekp646.2 cm (5' 7 )07/10/2025 1:55 PM EDTBody Mass Index38.5309 1:55 PM EDT Plan of Treatment Health MaintenanceDue DateLast DoneCommentsCT Ccvuzbndilsl50/02/1964Diabetes: Hemoglobin A1C1963FIT-DNA1963FIT1963FOBT1963 Pliqmnvywfrwm32/02/1964Diabetes: Retinopathy Rkzhkbgbg61/02/1974Depression Yzlgmxrcj02/02/1976Diabetes: Urine Protein Mvjwoedxh54/02/1983Pneumococcal Vaccine: Pediatrics (0 to 5 Years) and At-Risk Patients (6 to 64 Years) (1 of 2 - PCV)1982Zoster Vaccines (1 of 2)2013COVID-19 Vaccine ( - 2024- season)512/, 02/16/2021, 01/19/2021Influenza Vaccine (#1) 07/07/20250918Hlcjjpemxtz35/21/202706/Colorectal Cancer Sylxxdytn51/ Adult Jfckoqg89/, 04/19/2016, 05/15/2013, Additional history existsHIB VaccinesAged OutNo longer eligible based on patient's age to complete this topicHPV VaccinesAged OutNo longer eligible based on patient's age to complete this topicIPV VaccinesAged OutNo longer eligible based on patient's age to complete this topicMeningococcal B VaccineAged OutNo longer eligible based on patient's age to complete this topicMeningococcal VaccineAged OutNo longer eligible based on patient's age to complete this topicRotavirus VaccinesAged Out No longer eligible based on patient's age to complete this topic Medical Devices ImplantedTypeAreaManufacturerDevice IdentifierShelf Expiration DateModel / Serial / Jose R Jacques 3.50 X 38 - [id number] Implanted:Qty: 1 on 08/03/2022 by [facility]Boston [id number]/05/2024 [id number] / / [id number] Procedures Procedure NamePriorityDate/TimeAssociated DiagnosisCommentsCOMPLETE TRANSTHORACIC ECHO (TTE) W/WO IMAGING AGENT, STRAIN, 3D, BUBBLE STUDYRoutine 06/25/2025 8:45 AM EDT RIGHT HEART NMEVJtvvbrz43/07/2025 1:38 PM EDT Chest pain, unspecified type VILLAVICENCIO (dyspnea on exertion) CORONARY OOPLYFWUHNMEfxxkyc93/07/2025 1:38 PM EDT Chest pain, unspecified type VILLAVICENCIO (dyspnea on exertion) POCT HBO2%Dhtsolg2806/12/2025 1:26 PM EDT ECG 12-RGWUAjpyvox29/07/2025 11:33 AM EDT from Last 3 Months Results * Complete Echo (TTE) w/wo Imaging Agent, Strain, 3D, Bubble Study (06/25/2025 8:45 AM EDT)Anatomical RegionLateralityModalityUltrasound Narrative Authorizing ProviderResult TypeResult StatusHistorical Provider [facility] ECHO PROCEDURESFinal Result * CORONARY ANGIOGRAPHY, RIGHT HEART CATH (06/12/2025 1:38 PM EDT)Anatomical RegionLateralityModalityOtherSpecimen (Source)Anatomical Location / Laterality Collection Method / VolumeCollection TimeReceived Time Narrative 06/12/2025 1:49 PM EDT PROCEDURE PHYSICIAN: Arturo Yu MD . Indications: Sajan Humphreys is a 59 y.o. male who has a history of coronary disease status post stenting of the circumflex in the past. ??He was evaluated in cardiology clinic because of worsening in symptoms of shortness of breath on exertion. ??Because of worsening symptoms he was referred for cardiac catheterization. ??In the past his stress test was negative at the time of requiring stenting of the circumflex. Assistants: Cardiovascular Fellow Dr Barbara Abrams. Procedure Performed: Bilateral selective coronary angiogram. Right heart catheterization. Access into the right internal jugular vein under ultrasound guidance. Access into the left radial artery under ultrasound guidance. Methods: ??Procedure was explained to the patient with risks and benefits; he signed informed consent. ??he was brought to the quality assurance qa lab technician in a fasting state. The right neck area was prepped and draped in usual fashion. Micropuncture technique was used for access under ultrasound guidance into the right internal jugular vein. ??A 6-Cymro x 11 cm sheath was placed. ?? A 6-Cymro Lovett catheter was used for right heart catheterization and measurement of pressures and calculation of cardiac output using the estimated Sydnie method. ??Lovett catheter was removed. The left wrist area was prepped and draped in usual fashion. Micropuncture technique was used for access in the radial artery. ??A 6-Cymro x 11 cm sheath was placed. ??Verapamil was given through the sheath, and heparin was administered intravenously. ?? Bilateral selective coronary angiography was then performed using 6-Cymro JL4 diagnostic catheter for engagement of the left coronary artery and 6-Cymro JR4 diagnostic catheter for engagement of the right coronary artery. Catheters were removed. Hemostasis was achieved by TR band in the radial artery manual compression in the internal jugular vein. ??he tolerated the procedure well and was transferred back to the cardiovascular recovery area. Hemodynamic Data: ?? RA: 9 RV: 27/3, 10 PA: 30/18 (23) PCWP: 12 CO: 5.75 CI: 2.6 O2 Sat: PA sat: 64%, AO sat: 95% AO: 101/59 (78) Coronary angiography: This is a right-dominant circulation. Left Main: This arises from the left coronary cusp. ??It bifurcates into left anterior descending and circumflex vessels. ??This is angiographically normal. Left anterior descending: ?This is a large vessel that tapers distally. ?? Proximally it has mild disease. ??In the mid to distal segment there is mild diffuse disease up to 20%. ??No obstructive lesions noted in the LAD and diagonal branches. Circumflex: ?? This is a non-dominant vessel. ?It gives rise to 2 large obtuse marginal branches. ?The first obtuse marginal branch is a large vessel with mild luminal irregularities. ??The mid segment of the circumflex has a previously placed stent extending into the second obtuse marginal branch. ??The stent is. ??The stent there is a stepdown in. ??The rest of the obtuse is free of disease. ??The main circumflex in the AV groove is a small caliber vessel and has mild luminal irregularities. Right coronary artery: ?? This arises from the right coronary cusp. ??It is a dominant vessel. This has mild [...] on exertion) [R06.09], Coronary artery disease involving [place] coronary artery of [place] heart with other form of angina pectoris [I25.118] Authorizing ProviderResult TypeResult StatusIvet Jane CNPCV CARDIAC CATH PROCEDURESFinal Result * (ABNORMAL) POC Hb02% (06/12/2025 1:26 PM EDT)ComponentValueRef RangeTest MethodAnalysis TimePerformed AtPathologist DzmizgumvTVCKUQ69%64.1(A)90 - 95 % QC Pass/FailPassedQC LOT #[id number] Expiration Date73,126SAMPLESITEnlSpecimen (Source)Anatomical Location / LateralityCollection Method / VolumeCollection TimeReceived TimeBloodVenous blood specimen / Wmxobxb8706/12/2025 1:26 PM EDT Narrative Wilfred Aguiar MT - 06/13/2025 6:42 AM EDT Oper 9701 Authorizing ProviderResult TypeResult StatusGeorge Aimee MDPOINT OF CARE TEST ENTER/EDIT ORDERABLESFinal Result * Electrocardiogram, 12-lead (06/12/2025 11:33 AM EDT)ComponentValueRef Range Test MethodAnalysis TimePerformed AtPathologist SignatureVentricular Sklh49MUR GE MUSEAtrial Pnoq75ROGKL MUSEPR Cvjeyzoj582btGD MUSEQRS IGAELIJH969vpHN MUSE QT Uxcahgmu946zeFJ MUSEQTC CALCULATION(BAZETT)409msGE MUSEP Xngf88jjffgwfGQ MUSER-Gtye3rbbmdauKC MUSET Wave Puuf56yclcabtPS MUSESpecimen (Source) Anatomical Location / LateralityCollection Method / VolumeCollection Time Received Time06/12/2025 11:24 AM EDT06/12/2025 12:50 PM EDT Impressions GE MUSE - [...] Tomi Scruggs (78) on 06/12/2025 12:50:28 PM Authorizing ProviderResult TypeResult StatusGenoa uY MDECG ORDERABLES Final ResultPerforming OrganizationAddressCity/State/ZIP CodePhone Number GE MUSE from Last 3 Months Insurance Advance Directives * Full Code (Latest Code Status on File) Date ActivatedDate InactivatedComments08/03/2022 12:28 PM08/04/2022 1:04 PM Care Teams Team MemberRelationshipSpecialtyStart DateEnd Date Ben Jose MD [address] [facility] [place] [address] PCP - General11/15/22
[2025-09-11 16:30] LABS: Free T3 1.98 pg/mL (2.18-3.98); Thyroid Stimulating Hormone 0.577 uIU/mL (0.358-3.740)
== END 2025-09-11 15:46 | disposition home or self-care (01) ==
LOC: LAB 15:46
PROVIDERS: PCP Family Medicine; Visit Provider Family Medicine
DX: E03.9 Hypothyroidism, unspecified (principal)
CPT/HCPCS: 36415; 84436; 84443; 84481

== ENCOUNTER 2025-10-14 15:37 | Outpatient (OUT) | payer OTHER, SELFPAY ==
--- OUTSIDE RECORDS SUMMARY | 2025-10-14 15:44 | XMS_ITS | CCD ---
Author Organization [facility] Care Team Providers Care Society Reporter Name Role Phone Dimple Milligan Unavailable YolandaDyanEmma [...] Unavailable HOY ., DR VERDIN Admitting Unavailable COLFAX, DR PADMINI Ravi Consulting Unavailable HOY ., [...] Attending Unavailable ELTAHAWY, DR CHACON Admitting Unavailable Ben Mack MD Primary Care Provider [phone] Ben Mack MD Primary Care Provider Ben Mack Primary Care Physician GIOVANNY TATUM Referring Unavailable JR. DOSHI GEORGE C Attending Unavaila ble GIOVANNY TATUM Attending Unavailable DEBORA DUNHAM Attending Unavailable ANGEL ALCARAZ Attending Unavailable DEBORA DUNHAM Attending Unavailable GIOVANNY TATUM Referring Unavailable HERACLIO YU Referring Unavailable HERACLIO YU Admitting Unavailable HERACLIO YU Attending Unavailable ISAAC TANG Attending Unavailable DAMIAN XAVIER Attending Unavailable INES SERNA Attending Unavailable ISAAC TANG Attending Unavailable Ben Mack Referring Unavailable Lee HALE Attending Unavailable Lee HALE Attending Unavailable Allergies Allergy ClassificationReported Allergen(s)Allergy TypeDate of OnsetReaction(s) Facility (1 source)No Known Medication Allergies; Translations: [No Known Medication Allergies]Propensity to adverse reactions (disorder)[facility] Repository Medications Current Medications MedicationDrug Class(es)DatesSig (Normalized)Sig (Original)amoxicillin 875 mg oral tablet (1 source)Penicillin-class AntibacterialStart: 77-74-2426diwh 1 tablet by mouth every eight hoursAmoxicillin 875 MG 1 tablet Orally every 8 hrs for 10 day(s) Feb, Activeaspirin 81 mg delayed release oral tablet (20 sources)Platelet Aggregation Inhibitor, Nonsteroidal Anti-inflammatory Drug Start: 91-31-0452aejw 1 tablet by mouth once dailyaspirin 81 mg Oral EC Tab 81 mg = 1 tab(s), Oral, Daily, Refills(s) 0 Start Date: 07/02/25 Status: Ordered Repeat number: 1Start: 61-13-0290iwdjzlk 81 MG chewable tablet CHEW AND SWALLOW 1 TABLET IN THE MORNING 08/03/2022 Activeatorvastatin 80 mg oral tablet (20 sources)HMG-CoA Reductase InhibitorStart: 56-70-8955rsir 1 tablet by mouth at bedtimeatorvastatin (Lipitor) 80 MG tablet Take 80 mg by mouth at bedtime 08/03/2022 ActiveBreztri Aerosphere (1 source)Breztri Aerosphere Activecarvedilol 12.5 mg oral tablet (20 sources)alpha-Adrenergic Kali, beta-Adrenergic BlockerStart: 09-18-2019 take 1 tablet by mouth twice dailycarvedilol 12.5 mg Tab 12.5 mg = 1 tab(s), Oral, BID, High blood pressure Start Date: 09/18/19 Status: Ordered Repeat number: 1take 1 tablet by mouth in the morningcarvedilol (Coreg) 25 MG tablet Take 1 tablet by mouth in the morning and 1 tablet before bedtime. ActiveCoreg Activechlorhexidine gluconate 1.2 mg/ml mouthwash (1 source)Start: 24-84-0579rvzp 10 mL by mouth twice dailyPeridex 0.12 % gargle 10 ml Mouth/Throat twice daily Feb, Activeclopidogrel 75 mg oral tablet (20 sources)P2Y12 Platelet InhibitorStart: 61-14-1506mpip 1 tablet by mouth in the morningclopidogrel (Plavix) 75 MG tablet Take 75 mg by mouth in the morning. 09/06/2023 ActiveClopidogrel Bisulfate 75 MG Oral for 90 Days Activediclofenac sodium 75 mg delayed release oral tablet (20 sources)Nonsteroidal Anti-inflammatory DrugStart: 02-40-3305hphk 1 tablet by mouth twice dailydiclofenac sodium 75 mg Oral EC Tab 75 mg = 1 tab(s), Oral, BID, Refills(s) 0 Start Date: 07/02/25 Status: Ordered Repeat number: 1 End: 79-57-9333dgyf 1 tablet by mouth in the morningdiclofenac (Voltaren) 50 MG EC tablet Take 50 mg by mouth in the morning and 50 mg before bedtime. Do not crush, chew, or split. . 07/15/2024 Discontinued (Therapy completed)doxazosin 4 mg oral tablet (20 sources)alpha-Adrenergic BlockerStart: 72-01-6763pose 1 tablet by mouth once dailyCardura 4 mg Tab 4 mg = 1 tab(s), Oral, Daily, Refills(s) 0 Start Date: 07/02/25 Status: Ordered Repeat number: 1famotidine 40 mg oral tablet (4 sources)Histamine-2 Receptor AntagonistStart: 02-17-2023 End: 98-04-9836aicg 1 tablet by mouth at bedtimefamotidine (Pepcid) 40 MG tablet Take 40 mg by mouth at bedtime 02/18/2023 Activefenofibrate 145 mg oral tablet (20 sources)Peroxisome Proliferator Receptor alpha AgonistStart: 01-57-1330blsv 1 tablet by mouth once dailyfenofibrate 145 mg Tab 145 mg = 1 tab(s), Oral, Daily, Other (see comment) Start Date: 09/18/19 Status: Ordered Repeat number: 1 ferrous sulfate 325 mg oral tablet (18 sources)Start: 31-93-0443rane 1 tablet by mouth twice dailyferrous sulfate 325 mg Tab 325 mg = 1 tab(s), Oral, BID, Refills(s) 0 Start Date: 07/02/25 Status: Ordered Repeat number: 1furosemide 20 mg oral tablet (20 sources)Loop DiureticStart: 56-87-1072oain 10 mg by mouth once dailyLasix 20 mg Tab 10 mg = 0.5 tab(s), Oral, Daily, Refills(s) 0 Start Date: 07/02/25 Status: Ordered Repeat number: 1Start: 99-65-3308wyavdivhmp (Lasix) 40 MG tablet 11/05/2024 ActiveStart: 08-03-2022 End: 00-39-5362bzrr 2 tablets by mouth once dailyfurosemide (Lasix) 20 MG tablet Take 40 mg by mouth Daily 08/03/2022 12/04/2024 DiscontinuedStart: 08-03-2022 furosemide (Lasix) 20 MG tablet TAKE ONE-HALF (1/2) TABLET DAILY 08/03/2022 ActiveFurosemide 20 MG Oral for 90 Days ActivehydrOXYzine hydrochloride 50 mg oral tablet (18 sources)AntihistaminehydrOXYzine HCl (Atarax) 50 MG tablet Take by mouth. Activeliothyronine sodium 0.025 mg oral tablet (1 source)l-TriiodothyronineStart: 25-05-2935jtmd 1 tablet by mouth once daily Cytomel 25 mcg Tab 25 mcg = 1 tab(s), Oral, Daily, Refills(s) 0 Start Date: 07/16/25 Status: OrderedRepeat number: 1lisinopril 20 mg oral tablet (20 sources)Angiotensin Converting Enzyme InhibitorStart: 60-33-6060sdas 1 tablet by mouth once dailylisinopril 20 mg Tab 20 mg = 1 tab(s), Oral, Daily, Refills(s) 0 Start Date: 07/02/25 Status: Ordered Repeat number: 1Lisinopril 10 MG Oral for 90 Days Activemontelukast (1 source)Leukotriene Receptor AntagonistMontelukast Sodium Activeoxaprozin (1 source)Nonsteroidal Anti-inflammatory DrugOxaprozin ActivepredniSONE 10 mg oral tablet (3 sources)Start: 63-54-3961agwsobpejy 10 MG as directed with food Orally 5 tablet x 2 days, 4 tablet x2 days, 3 tablet x2 days, 2 tablet x 2 days, 1 tablet x 2 days for 10 days Feb, ActiveStart: 75-80-5966gaku 1 tablet by mouth every twelve hourspredniSONE 20 MG 1 tablet Orally bid for 5 day(s) Feb, Activesildenafil 100 mg oral tablet (1 source)Phosphodiesterase 5 InhibitorStart: 78-49-6055xrbk 1 tablet by mouth once daily as neededViagra 100 mg Tab 100 mg = 1 tab(s), Oral, Daily, PRN erectile dysfunction, Refills(s) 0 Start Date: 07/02/25 Status: Ordered Repeat number: 1theophylline 400 mg extended release oral tablet (3 sources)MethylxanthineTheophylline ER 400 MG Oral for 30 Days Active Completed/Discontinued Medications MedicationDrug Class(es)DatesSig (Normalized)Sig (Original)chlorthalidone 25 mg oral tablet (6 sources)Thiazide-like DiureticStart: 12-07-2023 End: 61-45-3992uikh 1 tablet by mouth in the morningchlorthalidone (Hygroton) 25 MG tablet Take 25 mg by mouth in the morning. 12/07/2023 07/15/2024 Discontinued (Therapy completed) End: 98-79-7029xvdsmtjglynfdy (HYGROTEN) 15 MG tablet Chlorthalidone 07/15/2024 Discontinued (Therapy completed)2 ml dupilumab 150 mg/ml auto-injector (20 sources)Interleukin-4 Receptor alpha AntagonistStart: 07-15-2024 End: 50-32-2077iofeeepei (Dupixent) 300 MG/2ML injection Indications: Severe persistent asthma with (acute) exacerbation (HCC) Inject 2 mL (300 mg) under the skin every 14 (fourteen) days 4 mL 6 07/15/2024 08/04/2025 Discontinued (Ineffective)Start: 01-24-2024 End: 03-86-2044Skylxseq 300 MG/2ML injection 01/24/2024 07/15/2024 Discontinued (Reorder)olmesartan (4 sources)Angiotensin 2 Receptor BlockerBenicar Not-Takingtriamcinolone acetonide 40 mg/ml injectable suspension (3 sources)CorticosteroidStart: 65-61-0801Vkacedq-40 Feb, 40 mg Problems Active Problems Problem ClassificationProblemDateDocumented DateEpisodic/ChronicAbdominal hernia (1 source)Umbilical -77-7381QzymcvpiAodjgvlf reactions (7 sources)Urticaria, unspecified; Translations: [Idiopathic urticaria]Onset: 19-42-8997VrznrcfjKofbgq (20 sources)Moderate persistent asthma, uncomplicated; Translations: [Exacerbation of severe persistent asthma]Onset: 806693-47-6326Kxumapb Calculus of urinary tract (1 source)Kidney juzjr86-05-3995VsisqnisYdtluoa obstructive pulmonary disease and bronchiectasis (15 sources)Chronic obstructive lung disease; Translations: [Chronic obstructive pulmonary disease, unspecified]Onset: 223323-98-9617UhnlolsDarilotj atherosclerosis and other heart disease (20 sources)Atherosclerotic heart disease of [place] coronary artery without angina pectoris; Translations: [Coronary atherosclerosis due to lipid rich plaque]Onset: 09-36-4141AkudfpyHdhftiocqx and other anemia (2 sources)Anemia; Translations: [Anemia, unspecified]Onset: 31-20-9250Wrsshuqv Diabetes mellitus without complication (1 source)Diabetes lsiudylh76-77-0924KnxlrtiGrijldm on above:new diagnosis on no meds yetDisorders of lipid metabolism (3 sources)Hypertriglyceridemia; Translations: [Mixed hyperlipidemia]Onset: 273975-44-5089HvukvswJdtzwdkodz disorders (4 sources)Walker's esophagus; Translations: [Walker's esophagus without dysplasia]Onset: 20-02-0591ZvguwvbDdtkpaplo hypertension (20 sources)Essential (primary) hypertension; Translations: [Essential hypertension]Onset: 80-49-8610RrjpszgZurwc valve disorders (1 source)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; Translations: [RHEUMATIC D/O AORTIC TRICUSPID VALV]Onset: 89-35-4351MonxbafMhcac disorders and dislocations; trauma-related (4 sources)Derangement of left knee; Translations: [Unspecified internal derangement of left knee]18-76-4516RqruxjzThfuf disorders and dislocations; trauma-related (2 sources)Acute tear of medial meniscus of left knee; Translations: [Other tear of medial meniscus, current injury, left knee, initial encounter]12-05-2024 EpisodicMycoses (2 sources)Onychomycosis; Translations: [Tinea unguium]15-80-5012Bdemtpkl Nonspecific chest pain (3 sources)Chest pain, unspecified; Translations: [CHEST PAIN UNSPECIFIED]Onset: 21-25-9068SkpwawquMhshf aftercare (4 sources)Encounter for therapeutic drug level monitoring; Translations: [ENC THERAPEUTC DRUG LEVL MONITORING]Onset: 38-63-5287PrzkiyqmKkvxr aftercare (1 source)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; Translations: [OTH DETENTION CURRENT DRUG THERAPY]Onset: 57-23-2578PhxrihbtFwnqy aftercare (1 source)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; Translations: [WELDING MANAGER CURRENT USE OF ASPIRIN]Onset: 84-04-7421XjaruopaKaajv endocrine disorders (1 source)Male ixbxqofsmoye54-21-8937JdgijeaQnuye hereditary and degenerative nervous system conditions (1 source)Essential xbyffx06-23-6373YfyducnWxwma lower respiratory disease (6 sources)Shortness of breath; Translations: [SHORTNESS OF BREATH]Onset: 73-83-2882IknvmhtzAhscj lower respiratory disease (2 sources)Shortness of breath; Translations: [Shortness of Breath]Onset: 92-03-4828RpsnnxszSurcf lower respiratory disease (2 sources)Other forms of dyspnea; Translations: [Other forms of dyspnea]Onset: 21-24-3592ItzkgwhiHuajm non-traumatic joint disorders (4 sources)Pain in left knee; Translations: [Pain in joint, lower leg]11-19-2024 EpisodicOther nutritional; endocrine; and metabolic disorders (1 source)Body mass index 30+ - -57-1979HncfzkiHbdzs nutritional; endocrine; and metabolic disorders (1 source)Obese class ORC52-54-2573YjwilkoDyyvc screening for suspected conditions (not mental disorders or infectious disease) (1 source)Encounter for screening for malignant neoplasm of prostate; Translations: [ENC SCREEN MALIG NEOPLASM PROSTATE]Onset: 54-40-1050YyoxczamRksyy skin disorders (2 sources)Dystrophia unguium; Translations: [Nail dystrophy]85-90-4626Fhqzbugv Other upper respiratory disease (2 sources)Chronic rhinitis; Translations: [Chronic rhinitis]00-24-2710Gvsmbat Pulmonary heart disease (1 source)Pulmonary wlivcqmdxsdl14-72-3811WvqelxpHcssaopc codes; unclassified (4 sources)Obstructive sleep apnea (adult) (pediatric); Translations: [OBSTRUCTIVE SLEEP APNEA]Onset: 69-58-2899DgwodcdFatzpnnx codes; unclassified (1 source)Obstructive sleep apnea vfroukci23-55-5063HanwaynQlovzoc detachments; defects; vascular occlusion; and retinopathy (1 source)Hypertensive samcbqpttji85-99-9966PwdxjtsEeiskvqeq-iocmvfc disorders (1 source)Nicotine dependence, cigarettes, uncomplicated; Translations: [NICOTINE DEPEND CIGARETTES UNCOMP]Onset: 07-92-8880VmnkbkcVrvgrie disorders (1 source)Lnyqyvgvsqsoev54-13-3876BziczypJdutogkqnngz (2 sources)1 month follow upOnset: 07-10-2025 Past or Other Problems Problem ClassificationProblemDateDocumented DateEpisodic/ChronicCoronary atherosclerosis and other heart disease (4 sources)Presence of coronary angioplasty implant and graft; Translations: [PRESENCE COR ANGPLSTY IMPLANT AND GRAFT]Onset: 59-21-0409GupgxrwuEsaanehbg of teeth and jaw (1 source)Periapical abscess without sinusOnset: 02-15-2022 Resolved: 75-41-1331EmruhiyvIyssd lower respiratory disease (4 sources)Dyspnea, unspecified; Translations: [DYSPNEA UNSPECIFIED]Onset: 72-07-0759UxmnfvvdKlgvzeneeljj (2 sources)Acute cough R05.1 Results Test NameValueInterpretationReference RangeFacilityAmbulatory Visit Summaryon 81-62-9313Dsstixkrfx Visit SummaryAmbulatory Visit Summary PARAS GRIGSBY :1965 Visit Date:07/16/2025 Ambulatory Visit Instructions Your Diagnosis Chronic GERD Barretts esophagus Anemia Your Care Team Attending Physician - Lee HALE MD Primary Care Physician - Ben Mack MD Referring Physician - Ben Mack MD This Is Your Medications List Contact [...] Tablets By Mouth Every day Contact prescribing physicianif questions or concerns Unchanged diclofenac (diclofenac sodium 75 mg Oral EC Tab) 1 Tablets By Mouth 2 times a day Contactprescribing physician if questions or concerns Unchanged doxazosin [...] Tablets By Mouth Every day Contact prescribing physicianif questions or concerns Unchanged liothyronine (Cytomel 25 [...] signed up for this yet, please contact [employer] at [phone] to get signed up today. Language Information Language assistance services are available as needed. Regional Medical CenterFollow-Upon 22-46-2940Jqyndv-Up [id number] Mando Grigsbyrissa Juan 1965 M Date Provider Department Center 07/10/2025 ISAAC TELLEZ Family History Problem Relation Age of Onset Heart failure Father Coronary artery disease Father Family Status - Relation Status Age at Mother Father Level of Service:41197 [place] OFFICE/OUTPATIENT ESTABLISHED MOD MDM 30 MIN Reason for Visit and Comments: Coronary Artery Disease [187] Hypertension [991033] 1 month follow up [Other] - S/P right/left heart cath Echo done 3 weeks ago at [facility] [Other] Stent placement 2021 [Other] - Stent placement 2021 Shortness of Breath [321520] - SOB and DOENormalUniversSycamore Medical CenterOrders Onlyon 09-83-6676Omzqju [id number] Mando Grigsbyrissa Juan 1965 M Date Provider Department Center 06/26/2025 [id number], HISTORICAL YURIY Buck Family History Problem Relation Age of Onset Heart failure Father Coronary artery disease Father Family Status - Relation Status Age at Mother Father DeceasedNoBarberton Citizens HospitalResults Follow-Upon 89-70-1458Tafmdig Follow-[id number] PetrMandoParas S 1965 M Date Provider Department Center 06/26/2025 ISAAC TELLEZ Family History Problem Relation Age of Onset Heart failure Father Coronary artery disease Father Family Status - Relation Status Age at Mother Father DeceasedWexner Medical CenterHPon 89-20-5174RPO&P reviewed. The patient was examined and there are no changes to the H&P. Will proceed with coronary angiography and right heart catheterization for further evaluation of his symptoms. Consent for blood products obtained. Risks, benefits, and alternatives to procedure discussed with patient in detail who expressed understanding and agreed to proceed.Wexner Medical CenterNURSNOTEon 38-92-4589TIHLOZQDXB educated pt on d/c instructions. This included: [...] wheeled off of unit with all of belongings.[facility]exner Medical CenterOrders Onlyon 80-98-1509Qgdyqy [id number] Paras Grigsby 1965 M Date Provider Department Center 06/06/2025 ATUL DIETZ GENNARO Nathalie [facility] Family History Problem Relation Age of Onset Heart failure Father Coronary artery disease Father Family Status - Relation Status Age at Mother Father DeceasedNormalUniTuscarawas HospitalHPon 98-57-0983GU Cardiovascular [facility] SUBJECTIVE Chief Complaint Patient presents with [...] routine 6 mo follow up. Says Dr. Mack just decreased his carvedilol to 12.5mg bid due to low BP's and lightheadedness. C/o chest pain also. Hasn't had echo or stress test since summer 2023. He notes for the past few weeks has not felt well. He has noticed increase SOB and chest pain with exertion. 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 Chest pain is left sided, non radiating, 5-6/10. Resting improves the pain and dyspnea. Denies any palpitations. He has some dizziness. He was experiencing some low BP's, dr. Mack reduced his coreg to 12.5mg BID. BP at home runing 100-120/60s Patient Active Problem List Diagnosis Chest pain CAD in [place] artery Essential hypertension COPD (chronic obstructive pulmonary disease) ([facility]) S/P drug eluting coronary stent placement Hyperplastic polyp of intestine Dyspnea Shortness of breath Severe persistent asthma with acute exacerbation ([facility]) Degeneration of intervertebral disc of cervical region Other cervical disc displacement at C6-C7 level Radiculopathy, cervical region Spinal stenosis, cervical region Hypertensive retinopathy Umbilical hernia VILLAVICENCIO (dyspnea on exertion) Past Medical History: Diagnosis Date COPD (chronic obstructive pulmonary disease) ([facility]) Coronary artery disease Hyperlipidemia Hypertension [...] General: Skin is w (more content not included)...NormalUnPremier Health Upper Valley Medical CenterOffice Visiton 59-29-6142Puwxpj-up [id number] Paras Grigsby 1965 M Date Provider Department Center 06/05/2025 ISAAC TELLEZ GENNARO Zelaya [facility] Family History Problem Relation Age of Onset Heart failure Father Coronary artery disease Father Family Status - Relation Status Age at Mother Father Level of Service:11659 [place] OFFICE/OUTPATIENT ESTABLISHED MOD MDM 30 MIN Reason for Visit and Comments: Chest Pain [622264] Coronary Artery Disease [187]NormalUnPremier Health Upper Valley Medical CenterOrders Onlyon 82-81-9858Lvogep [id number] Paras Grigsby 1965 M Date Provider Department Center 04/25/2025 [id number], ADAM GENNARO Buck Family History Problem Relation Age of Onset Heart failure Father Coronary artery disease Father Family Status - Relation Status Age at Mother Father DeceasedNormalUniTuscarawas HospitalOffice Visiton 88-63-8674Xnunzu-up [id number] Paras Grigsby 1965 M Date Provider Department Center 04/18/2025 [id number], ADAM BH CARD Nathalie [facility] Family History Problem Relation Age of Onset Heart failure Father Coronary artery disease Father Family Status - Relation Status Age at Mother Father Level of Service:59922 [place] OFFICE/OUTPATIENT ESTABLISHED MOD MDM 30 [facility]MR K[facility] LEFT WO IV CONTRASTon 53-59-9349AW KNEE LEFT WO IV CONTRASTExam: MR KNEE LEFT WO IV CONTRAST History: Medial knee pain. Technique: Multiplanar multisequence MRI of the knee was performed without contrast. Comparison: Radiographs November 20, 2024 Findings: Quadriceps and patellar tendons are intact. Metallic susceptibility artifact in the region of the superior patella secondary to metallic foreign body within the subcutaneous soft tissues. Small jointeffusion. Anterior and posterior cruciate ligaments are intact. [...] the medial tibial plateau. ELECTRONICALLY SIGNED BY: Essie BolanosmalNot AvailableXR Knee - left 1 or 2 Viewson 90-70-0534Tulmscx Result: AP and Lateral left knee: No acute fracture or dislocation Small metalic foreign body in prepatellar soft tissues best seen on lateral view Joint space preservation to medial and lateral weight bearing surface. Mild patella femoral changes for arthritis Impression: no acute bony process left knee with age indeterminate metallic foreign body.[facility] HealthcareRadiology Study observation (narrative)[facility] HealthcareOffice Visiton 47-44-8230Ydnauf-up [id number] Paras Grigsby 1965 M Date Provider Department Center 10/07/2024 Delaney-INES SERNA [facility]3] Hos Family History Problem Relation Age of Onset Heart failure Father Coronary artery disease Father Family Status - Relation Status Age at Father Level of Service:67420 [place] OFFICE/OUTPATIENT ESTABLISHED LOW MDM 20 [facility] SystemTHEOPHYLLINEon 39-72-5851JHUDYDSQUDJW7.9 ug/mLCritically low10.0-20.0The [facility] HospitalComment on above:Performed By: #### RADHA #### [facility] [address] [address] [address] Navneet Rivas by IFAon 31-13-3405Cdirhkdetrh Antibodies, IFAPositive AbnormalThe [facility] HospitalComhealthsource [place] on above:Result Comment: Negative <1:80 Borderline 1:80 Positive >1:80Performed By: #### CBC #### [facility] [address] [address] [address] Navneet Bedolla [facility] CenterComhealthsource [place] on above: Performed By: #### CBC #### [facility] [address] [address] [address] Navneet Marte [facility] CenterComhealthsource [place] on above: Performed By: #### CBC #### [facility] [address] [address] [address] Navneet GodwinHomogeneous Pattern1:80[facility]HealthComhealthsource [place] on above:Result Comment: ICAP nomenclature: AC-1Performed By: #### CBC #### [facility] [address] [address] [address] Navneet GodwinMidbody [facility] CenterComment on above: Performed By: #### CBC #### [facility] [address] [address] [address] Navneet GodwinNote:CommentOhioHealthComhealthsource [place] on above:Result Comment: For more information about Hep-2 cell [...] titers Nucleosomes, Histones Drug-induced SLE Speckled Sm, CUT PRESSMAN, SCL-70, SLE,MCTD,PSS (diffuse form), SS-A/SS-B Sjogrens Nucleolar SCL-70, PM- 1/SCL High titers Scleroderma, PM/DM Centromere Centromere PSS (limited form)w/Crest syndrome variable Nuclear Dot Sp100,z52-pfbbfr Primary Biliary Cirrhosis Nuclear GP210, Primary Biliary Cirrhosis Membrane ofelia A,B,C Performed By: #### CBC #### [facility] [address] [place] [address] Dr. Navneet Ma Dot [facility] CenterComment on above: Performed By: #### CBC #### [facility] [address] [place] [address] Dr. Navneet Ma Membrane [facility] CenterComment on above:Performed By: #### CBC #### [facility] [address] [place] [address] Dr. Navneet Mastersolar [facility] CenterComhealthsource [place] on above: Performed By: #### CBC #### [facility] [address] [place] [address] Dr. Navneet Arreaga [facility] on above:Performed By: #### CBC #### [facility] [address] [place] [address] Dr. Navneet GodwinSpeckled [facility] on above: Performed By: #### CBC #### [facility] [address] [place] [address] Dr. Navneet GodwinSpduglasle Apparatus [facility] CenterComment on above:Performed By: #### CBC #### [facility] [address] [place] [address] Dr. Navneet GodwinINSULINon 88-21-3032Kjvnyfq84.9 uIU/mLCritically high2.6-24.9[facility] Southment on above:Performed By: #### INSULIN #### [facility] [address] [place] [address] Dr. Navneet YoungSTREPTOLYSIN O AB (ASO)on 02-26-2610Rddrlezozzvwposb O Ab55.6 IU/mLNormal0.0-200.0The [facility] HospitalComment on above:Performed By: #### HGB #### [facility] [address] [place] [address] Dr. Navneet GodwinRHEUMATOID FACTORon 00-15-0452SW Latex Turbid.<10.0Normal<14.0The [facility] HospitalComment on above:Performed By: #### HGB #### [facility] [address] [place] [address] Dr. Navneet GodwinCBC AUTO DIFFon [id number] #0.0 103/ulNormal0.0-0.1The [facility] HospitalComment on above:Performed By: #### CBC #### [facility] [address] [place] [address] Dr. Navneet GodwinBasophils/100 WBC (Bld)0.8 %Normal0.2-2.0The [facility] Comment on above:Performed By: #### CBC #### [facility] [address] [place] [address] Dr. Navneet Lopez #0.1 103/ulNormal0.0-0.7The [facility] HospitalComment on above: Performed By: #### CBC #### [facility] [address] [place] [address] Dr. Navneet Carcamoosinophils/100 WBC (Bld)2.1 %Normal0.9-7.0The [facility] Comment on above:Performed By: #### CBC #### [facility] [address] [place] [address] Dr. Navneet Carcamorythrocyte distribution width (RBC) [Ratio]13.7 %Aakail49.0-15.0 The [facility] HospitalComment on above:Performed By: #### CBC #### [facility] [address] [place] [address] Dr. Navneet GodwinHematocrit (Bld) [Volume fraction]37.6 %Critically low42.0-54.0 The [facility] HospitalComment on above:Performed By: #### CBC #### [facility] [address] [place] [address] Dr. Navneet GodwinHemoglobin (Bld) [Mass/Vol]12.7 g/dLCritically low14.0-18.0The [facility] HospitalComment on above:Performed By: #### CBC #### [facility] [address] [place] [address] Dr. Navneet GodwinIG #0.01 10e3/ulNormal0.00-0.03The [facility] HospitalComment on above:Performed By: #### CBC #### [facility] [address] [place] [address] Dr. Navneet oGdwinIG %0.2 %Normal0.0-0.5The [facility] HospitalComment on above: Performed By: #### CBC #### [facility] [address] [place] [address] Dr. Navneet Lazcano #1.8 103/ulNormal1.2-3.8The [facility] HospitalComment on above:Performed By: #### CBC #### [facility] [address] [place] [address] Dr. Navneet Washingtonmphocytes/100 WBC (Bld)33.1 %Qvvkoo74.5-60.0The [facility] HospitalComment on above:Performed By: #### CBC #### [facility] [address] [place] [address] Dr. Navneet GodwinMANUAL DIFF REQNONormalThe [facility] HospitalComment on above: Performed By: #### CBC #### [facility] [address] [place] [address] Dr. Navneet Delaney (RBC) [Entitic mass]29.4 ypVledun26.9-34.0The [facility] HospitalComment on above:Performed By: #### CBC #### [facility] [address] [place], [place] [id number] Dr. Navneet LayHC (RBC) [Mass/Vol]33.8 g/cEDbdsap74.9-35.2The [facility] HospitalComment on above:Performed By: #### CBC #### [facility] [address] [place] [address] Dr. Navneet LayV (RBC) [Entitic vol]87.0 bPCvuwnc77.0-94.0The [facility] HospitalComment on above:Performed By: #### CBC #### [facility] [address] [place] [address] Dr. Navneet Camilo #0.4 103/ulNormal0.3-0.8The [facility] HospitalComment on above:Performed By: #### CBC #### [facility] [address] [place] [address] Dr. Navneet Warnerocytes/100 WBC (Bld)8.1 %Normal1.7-12.0The [facility] Comment on above:Performed By: #### CBC #### [facility] [address] [place] [address] Dr. Navneet Raza #2.9 103/ulNormal1.4-6.5The [facility] HospitalComment on above:Performed By: #### CBC #### [facility] [address] [place] [address] Dr. Navneet Rashidutrophils/100 WBC (Bld)55.7 %Hgnewh43.0-75.0The [facility] HospitalComment on above:Performed By: #### CBC #### [facility] [address] [place] [address] Dr. Navneet Marialet mean volume (Bld) [Entitic vol]10.6 fLNormal9.5-13.5The [facility] HospitalComment on above:Performed By: #### CBC #### [facility] [address] [place] [address] Dr. Navneet DanielT236 103/qyMqhqgd100-626Emz [facility] HospitalComment on above: Performed By: #### CBC #### [facility] [address] [address] [address] Navneet GodwinRBC4.32 106/ulCritically low4.70-6.10ThRegency Hospital Cleveland WestComment on above:Performed By: #### CBC #### [facility] [address] [address] [address] Navneet GodwinWBC5.3 103/ulNormal4.0-11.0The [facility] HospitalComment on above: Performed By: #### CBC #### [facility] [address] [place] [address] Dr. Navneet GodwinCRPon 03-25-4077POQ [Mass/Vol]mg/LNormal<=1.0The [facility] HospitalComment on above:Performed By: #### HGB #### [facility] [address] [place] [address] Dr. Navneet GodwinFRMARILIA THYROXINE INDEX T7on 07-45-8560XCI5.56Mdskys4.30-4.50The [facility] HospitalComment on above:Performed By: #### CBC #### [facility] [address] [place] [address] Dr. Navneet GodwinT3U32.0 %Critically low33.0-40.0The [facility] HospitalComhealthsource [place] on above:Performed By: #### CBC #### [facility] [address] [place] [address] Dr. Navneet GodwinT4 [Mass/Vol]8.10 ug/dLNormal4.50-12.10ThRegency Hospital [facility] West Comment on above:Performed By: #### CBC #### [facility] [address] [place] [address] Dr. Navneet GodiwnGLYCOHEMOGLOBIN A1Con 74-32-3120HHP RECOMMENDATIONSEE BELOWNormal [facility] ClinicComhealthsource [place] on above:Result Comment: ADA RECOMMENDED LIMIT 4.0 - 6.0 ADA THERAPEUTIC TARGET < 7.0 ACTION SUGGESTED > 7.0Performed By: #### HGB #### [facility] [address] [place] [address] Dr. Navneet GodwinGlucose [Mass/Vol]126 mg/dLOhioHealthComment on above:Performed By: #### HGB #### [facility] [address] [address] [address] Navneet GodwinHbA1c (Bld) [Mass fraction]6.0 %Normal4.5-6.2[facility] ClinicComment on above:Performed By: #### HGB #### [facility] [address] [place] [address] Dr. Navneet GodwinLIPID PROFILEon 03-70-8627MIVH-HDL RATIO NORMSEE [facility] CenterComment on above:Result Comment: 3.3 - 4.4 LOW RISK 4.4 - 7.1 AVERAGE RISK 7.1 - 11.0 MODERATE RISK >11.0 HIGH RISKPerformed By: #### CBC #### [facility] [address] [place] [address] Dr. Navneet GodwinCholesterol [Mass/Vol]96 mg/dLNormal<=200The [facility] Comment on above:Performed By: #### CBC #### [facility] [address] [place] [address] Dr. Navneet GodwinCholesterol in HDL [Mass/Vol]45 mg/kEKfpjcr24-96Nqj [facility] HospitalComment on above:Performed By: #### CBC #### [facility] [address] [place] [address] Dr. Navneet Bowmanesterol in LDL [Mass/Vol]37.2 mg/dLOhioHealthComment on above:Performed By: #### CBC #### [facility] [address] [place] [address] Dr. Navneet Bowmanesterol.total/Cholesterol in HDL [Mass ratio]2.1 {ratio} NormalThe [facility] HospitalComment on above:Performed By: #### CBC #### [facility] [address] [place] [address] Dr. Navneet GodwinHDL NORMAL> or = 60 mg/dl - LOW CARDIOVASCULAR RISK <40 mg/dl - HIGH CARDIOVASCULAR RISKOhioHealthComment on above:Performed By: #### CBC #### [facility] [address] [address] [address] Navneet Shaikh CALC NORMALSEE BELOWNoSamaritan North Health CenterComment on above:Result Comment: <100 mg/dl OPTIMAL 100 - 129 mg/dl NEAR OR ABOVE OPTIMAL 130 - 159 mg/dl BORDERLINE HIGH 160 - 189 mg/dl HIGH >190 mg/dl VERY HIGH Performed By: #### CBC #### [facility] [address] [address] [address] Navneet GodwinTriglyceride [Mass/Vol]69 mg/dLNormal<=150The [facility] Comment on above:Performed By: #### CBC #### [facility] [address] [place] [address] Dr. Navneet GodwinVLDL CALC13.8 mg/dLNoSamaritan North Health CenterComment on above: Performed By: #### CBC #### [facility] [address] [place] [address] Dr. Navneet GodwinOCC BLD IMMUNO SCREENon 64-28-4716FCKMFZ BLOODNegativeNormal NEGATIVEThe [facility] HospitalComhealthsource [place] on above:Performed By: #### OBSCRN #### [facility] [address] [place] [address] Dr. Navneet GodwinPROF 14(COMP METB)on 65-31-4268Qdmiezj [Mass/Vol]4.1 g/dLNormal 3.4-5.0The [facility] HospitalComment on above:Performed By: #### CBC #### [facility] [address] [place] [address] Dr. Navneet GodwinAlbumin/Globulin [Mass ratio]1.4 {ratio}NormalThe [facility] HospitalComhealthsource [place] on above:Performed By: #### CBC #### [facility] [address] [place] [address] Dr. Navneet MatsonP [Catalytic activity/Vol]40 U/LCritically ejd47-771Gtl [facility] HospitalComment on above:Performed By: #### CBC #### [facility] [address] [place] [address] Dr. Navneet Fleming [Catalytic activity/Vol]33 U/EEvrrdb07-95Ali [facility] HospitalComment on above:Performed By: #### CBC #### [facility] [address] [address] [address] Navneet Antunezon gap [Moles/Vol]14.6 mmol/LNormalCleveland Clinic Comment on above:Performed By: #### CBC #### [facility] [address] [address] [address] Navneet GodwinAST [Catalytic activity/Vol]33 U/UPpscjr12-34Mmn [facility] HospitalComment on above:Performed By: #### CBC #### [facility] [address] [place] [address] Dr. Navneet GodwinBilirubin [Mass/Vol]0.4 mg/dLNormal0.2-1.0[facility] Comment on above:Performed By: #### CBC #### [facility] [address] [place] [address] Dr. Navneet GodwinCalcium [Mass/Vol]9.2 mg/dLNormal8.5-10.1[facility] Comment on above:Performed By: #### CBC #### [facility] [address] [place] [address] Dr. Navneet GodwinChloride [Moles/Vol]109 mmol/LCritically zrwn03-676Mrc [facility] HospitalComment on above:Performed By: #### CBC #### [facility] [address] [place] [address] Dr. Navneet GodwinCO2 [Moles/Vol]23.1 mmol/LAjytoe10.0-32.0The [facility] Comment on above:Performed By: #### CBC #### [facility] [address] [place] [address] Dr. Navneet GodwinCreatinine [Mass/Vol]1.12 mg/dLNormal0.70-1.30The [facility] HospitalComment on above:Performed By: #### CBC #### [facility] [address] [place] [address] Dr. Navneet CarcamoGFR-AF GHANAIAN>60Normal>=60The [facility] HospitalComment on above:Performed By: #### CBC #### [facility] [address] [place] [address] Dr. Navneet CarcamoGFR-NON AF GHANAIAN>60Normal>=60The [facility] HospitalComment on above:Performed By: #### CBC #### [facility] [address] [address] [address] Navneet GodwinGlobulin (S) [Mass/Vol]2.9 g/dLNormalThe [facility] HospitalComment on above:Performed By: #### CBC #### [facility] [address] [place] [address] Dr. Navneet GodwinGlucose [Mass/Vol]109 mg/dLCritically jiom18-215Qny [facility] HospitalComment on above:Performed By: #### CBC #### [facility] [address] [place] [address] Dr. Navneet GodwinPotassium [Moles/Vol]3.7 mmol/LNormal3.5-5.1The [facility] Comment on above:Performed By: #### CBC #### [facility] [address] [place] [address] Dr. Navneet GodwinProtein [Mass/Vol]7.0 g/dLNormal6.4-8.2The [facility] Comment on above:Performed By: #### CBC #### [facility] [address] [place] [address] Dr. Navneet GodwinSodium [Moles/Vol]143 mmol/FFcxwhz591-771Lcz [facility] Comment on above:Performed By: #### CBC #### [facility] [address] [address] [address] Navneet GodwinUrea nitrogen [Mass/Vol]18.0 mg/dLNormal7.0-18.0The [facility] HospitalComment on above:Performed By: #### CBC #### [facility] [address] [place] [address] Dr. Navneet GodwinUrea nitrogen/Creatinine [Mass ratio]16.1 mg/mgNoSamaritan North Health CenterComhealthsource [place] on above:Performed By: #### CBC #### [facility] [address] [place] [address] Dr. Navneet Beltre 69-77-7972ZXS1.912 uIU/mLNormal0.358-3.740The [facility] HospitalComment on above:Performed By: #### HGB #### [facility] [address] [place] [address] Dr. Navneet GodwinURIC ACID SERUMon 87-76-1322Bnliy [Mass/Vol]6.9 mg/dLNormal 3.5-7.2The [facility] HospitalComment on above:Performed By: #### HGB #### [facility] [address] [place] [address] Dr. Navneet GodwinTHEOPHYLLINEon 26-49-9883FMULDOCZKWRF4.3 ug/mLCritically low 10.0-20.0The [facility] HospitalComment on above:Performed By: #### CBC #### [facility] [address] [place] [address] Dr. Navneet GodwinLIPID PROFILEon 16-55-2809HWNF-HDL RATIO NORMSFulton County Health CenterComment on above:Result Comment: 3.3 - 4.4 LOW RISK 4.4 - 7.1 AVERAGE RISK 7.1 - 11.0 MODERATE RISK >11.0 HIGH RISKPerformed By: #### LIPID, CMP #### [facility] [address] [place] [address] Dr. Navneet GodwinCholesterol [Mass/Vol]92 mg/dLNormal<=200The [facility] Comment on above:Performed By: #### LIPID, CMP #### [facility] [address] [place] [address] Dr. Navneet GodwinCholesterol in HDL [Mass/Vol]40 mg/nXHawymb40-65Gmq [facility] HospitalComment on above:Performed By: #### LIPID, CMP #### [facility] [address] [place] [address] Dr. Navneet GodwinCholesterol in LDL [Mass/Vol]33.2 mg/dLNoSamaritan North Health CenterComment on above:Performed By: #### LIPID, CMP #### [facility] [address] [place] [address] Dr. Navneet Bowmanesterol.total/Cholesterol in HDL [Mass ratio]2.3 {ratio} NormalThe [facility] HospitalComment on above:Performed By: #### LIPID, CMP #### [facility] [address] [place] [address] Dr. Navneet Starr NORMAL> or = 60 mg/dl - LOW CARDIOVASCULAR RISK <40 mg/dl - HIGH CARDIOVASCULAR RISKOhioHealthComment on above:Performed By: #### LIPID, CMP #### [facility] [address] [place] [address] Dr. Navneet Shaikh CALC NORMALSEE BELOWOhioHealthComment on above:Result Comment: <100 mg/dl OPTIMAL 100 - 129 mg/dl NEAR OR ABOVE OPTIMAL 130 - 159 mg/dl BORDERLINE HIGH 160 - 189 mg/dl HIGH >190 mg/dl VERY HIGH Performed By: #### LIPID, CMP #### [facility] [address] [place] [address] Dr. Navneet GodwinTriglyceride [Mass/Vol]94 mg/dLNormal<=150The [facility] Comment on above:Performed By: #### LIPID, CMP #### [facility] [address] [place] [address] Dr. Navneet GodwinVLDL CALC18.8 mg/dLNoSamaritan North Health CenterComment on above: Performed By: #### LIPID, CMP #### [facility] [address] [place] [address] Dr. Navneet GodwinPROF 14(COMP METB)on 05-48-3391Hcvyuct [Mass/Vol]3.6 g/dLNormal 3.4-5.0[facility] ClinicComment on above:Performed By: #### LIPID, CMP #### [facility] [address] [place] [address] Dr. Navneet GodwinAlbumin/Globulin [Mass ratio]1.2 {ratio}NormalCleveland ClinicComment on above:Performed By: #### LIPID, CMP #### [facility] [address] [address] [address] Navneet Duron [Catalytic activity/Vol]45 U/LCritically csx22-403Tbl [facility] HospitalComment on above:Performed By: #### LIPID, CMP #### [facility] [address] [address] [address] Navneet Fleming [Catalytic activity/Vol]25 U/HWwephw74-75Eae [facility] HospitalComment on above:Performed By: #### LIPID, CMP #### [facility] [address] [address] [address] Navneet Bill gap [Moles/Vol]13.5 mmol/LNormalThe [facility] Comment on above:Performed By: #### LIPID, CMP #### [facility] [address] [address] [address] Navneet GodwinAST [Catalytic activity/Vol]37 U/NFddufz60-45Qwb [facility] Hospitalment on above:Performed By: #### LIPID, CMP #### [facility] [address] [address] [address] Navneet GodwinBilirubin [Mass/Vol]0.4 mg/dLNormal0.2-1.0The [facility] Comment on above:Performed By: #### LIPID, CMP #### [facility] [address] [address] [address] Navneet GodwinCalcium [Mass/Vol]8.9 mg/dLNormal8.5-10.1[facility] Comment on above:Performed By: #### LIPID, CMP #### [facility] [address] [place] [address] Dr. Navneet GodwinChloride [Moles/Vol]109 mmol/LCritically muyz28-240Iwb [facility] HospitalComment on above:Performed By: #### LIPID, CMP #### [facility] [address] [address] [address] Navneet GodwinCO2 [Moles/Vol]25.3 mmol/PQfbcrv50.0-32.0The [facility] Comment on above:Performed By: #### LIPID, CMP #### [facility] [address] [place] [address] Dr. Navneet GodwinCreatinine [Mass/Vol]1.07 mg/dLNormal0.70-1.30The [facility] HospitalComment on above:Performed By: #### LIPID, CMP #### [facility] [address] [address] [address] Navneet CarcamoGFR-AF GHANAIAN>60Normal>=60The [facility] HospitalComment on above:Performed By: #### LIPID, CMP #### [facility] [address] [place] [address] Dr. Navneet Benoit-NON AF GHANAIAN>60Normal>=60The [facility] HospitalComment on above:Performed By: #### LIPID, CMP #### [facility] [address] [place] [address] Dr. Navneet GodwinGlobulin (S) [Mass/Vol]3.1 g/dLNormalThe [facility] HospitalComment on above:Performed By: #### LIPID, CMP #### [facility] [address] [place] [address] Dr. Navneet GodwinGlucose [Mass/Vol]115 mg/dLCritically ozor85-312Ckx [facility] HospitalComment on above:Performed By: #### LIPID, CMP #### [facility] [address] [place] [address] Dr. Navneet GodwinPotassium [Moles/Vol]3.8 mmol/LNormal3.5-5.1The [facility] Comment on above:Performed By: #### LIPID, CMP #### [facility] [address] [place] [address] Dr. Navneet GodwinProtein [Mass/Vol]6.7 g/dLNormal6.4-8.2The [facility] Comment on above:Performed By: #### LIPID, CMP #### [facility] [address] [place] [address] Dr. Navneet GodwinSodium [Moles/Vol]144 mmol/BJvuyfp339-700FwdCleveland Clinic Comment on above:Performed By: #### LIPID, CMP #### [facility] [address] [address] [address] Navneet Wood nitrogen [Mass/Vol]21.0 mg/dLCritically high7.0-18.0The [facility] HospitalComment on above:Performed By: #### LIPID, CMP #### [facility] [address] [address] [address] Navneet Wood nitrogen/Creatinine [Mass ratio]19.6 mg/mgNormalThe [facility] HospitalComment on above:Performed By: #### LIPID, CMP #### [facility] [address] [place] [address] Dr. Navneet Pollard AB, QUANTITATIVE DIDon 86-01-3040Egiriylkxha flavus NegativeNormalNeg:<1:1The [facility] HospitalComment on above:Performed By: #### CBC #### [facility] [address] [place] [address] Dr. Navneet Pollard fumigatusNegativeNormalNeg:<1:1The [facility] Comment on above:Performed By: #### CBC #### [facility] [address] [place] [address] Dr. Navneet Pollard nigerNegativeNormalNeg:<1:1[facility] Comment on above:Performed By: #### CBC #### [facility] [address] [place] [address] Dr. Navneet GodwinIMMUNOGLOBULIN E, TOTALon 93-38-3157Jacvzzxzssifdu E, Tbwig904 IU/mLNormal6-495The [facility] HospitalComment on above:Performed By: #### CBC #### [facility] [address] [place] [address] Dr. Navneet Young NEUTROPHIL CYTOPLASMIC AB (ANCA) PRon 43-47-5846Wrkb-MPO Antibodies<0.2Xtpwov7.0-0.9[facility] ClinicComment on above:Result Comment: Performed at: BNPerformed By: #### HGB #### [facility] [address] [place] [address] Dr. Navneet GodwinAnti-PR3 Antibodies<0.4Thqwsy0.0-0.9The [facility] on above:Result Comment: Performed at: BNPerformed By: #### HGB #### [facility] [address] [place] [address] Dr. Navneet GodwinAtypical pANCA<1:20NormalNeg:<1:20ThRegency Hospital Cleveland WestComment on above:Result Comment: The atypical pANCA pattern has been observed in a significant percentage of patients with ulcerative colitis, primary sclerosing cholangitis and autoimmune hepatitis. Performed at: CBPerformed By: #### HGB #### [facility] [address] [place] [address] Dr. Navneet GodwinCytoplasmic (C-ANCA)<1:20NormalNeg:<1:20ThRegency Hospital [facility] West Comment on above:Result Comment: Performed at: CBPerformed By: #### HGB #### [facility] [address] [place] [address] Dr. Navneet GodwinPerinuclear (P-ANCA)<1:20NormalNeg:<1:20ThRegency Hospital [facility] West Comment on above:Result Comment: The presence of positive fluorescence exhibiting P-ANCA or C-ANCA patterns alone is not specific for the diagnosis of Phoenix's Granulomatosis (WG) or microscopic polyangiitis. Decisions about treatment should not be based solely on ANCA IFA results. The [employer] ANCA [employer] Consensus recommends follow up testing of positive sera with both NV-3 and MPO-ANCA enzyme immunoassays. As many as 5% serum samples are positive only by EIA. Ref. AM J Clin Pathol 1999;111:507-513. Performed at: CBPerformed By: #### HGB #### [facility] [address] [place] [address] Dr. Navneet GodwinCBC AUTO DIFFon 80-95-5358FJRT #0.0 103/ulNormal0.0-0.1The [facility] HospitalComment on above:Performed By: #### CBC #### [facility] [address] [address] [address] Navneet GodwinBasophils/100 WBC (Bld)0.7 %Normal0.2-2.0The [facility] Comment on above:Performed By: #### CBC #### [facility] [address] [place] [address] Dr. Navneet Lopez #0.1 103/ulNormal0.0-0.7The [facility] HospitalComment on above: Performed By: #### CBC #### [facility] [address] [place] [address] Dr. Navneet Carcamoosinophils/100 WBC (Bld)1.9 %Normal0.9-7.0The [facility] Comment on above:Performed By: #### CBC #### [facility] [address] [place] [address] Dr. Navneet Carcamorythrocyte distribution width (RBC) [Ratio]12.5 %Aeimgd10.0-15.0 The [facility] HospitalComment on above:Performed By: #### CBC #### [facility] [address] [place] [address] Dr. Navneet GodwinHematocrit (Bld) [Volume fraction]38.6 %Critically low42.0-54.0 The [facility] HospitalComment on above:Performed By: #### CBC #### [facility] [address] [place] [address] Dr. Navneet GodwinHemoglobin (Bld) [Mass/Vol]12.9 g/dLCritically low14.0-18.0The [facility] HospitalComment on above:Performed By: #### CBC #### [facility] [address] [place] [address] Dr. Navneet Bowens #0.01 10e3/ulNormal0.00-0.03The [facility] HospitalComment on above:Performed By: #### CBC #### [facility] [address] [place] [address] Dr. Navneet Bowens %0.2 %Normal0.0-0.5The [facility] HospitalComment on above: Performed By: #### CBC #### [facility] [address] [address] [address] Navneet Lazcano #2.4 103/ulNormal1.2-3.8The [facility] HospitalComment on above:Performed By: #### CBC #### [facility] [address] [address] [address] Navneet Mckinnonhocytes/100 WBC (Bld)41.7 %Dhvlea70.5-60.0The [facility] HospitalComment on above:Performed By: #### CBC #### [facility] [address] [place] [address] Dr. Navneet Jain DIFF REQNONormalThe [facility] HospitalComment on above: Performed By: #### CBC #### [facility] [address] [place] [address] Dr. Navneet Lay (RBC) [Entitic mass]29.8 fjDllwsk14.9-34.0The [facility] HospitalComment on above:Performed By: #### CBC #### [facility] [address] [place] [address] Dr. Navneet Lay (RBC) [Mass/Vol]33.4 g/pTJygsmv50.9-35.2The [facility] HospitalComment on above:Performed By: #### CBC #### [facility] [address] [place] [address] Dr. Navneet Lay (RBC) [Entitic vol]89.1 qHXgqgqb90.0-94.0The [facility] HospitalComment on above:Performed By: #### CBC #### [facility] [address] [place] [address] Dr. Navneet Camilo #0.6 103/ulNormal0.3-0.8The [facility] HospitalComment on above:Performed By: #### CBC #### [facility] [address] [place] [address] Dr. Navneet Warnerocytes/100 WBC (Bld)10.5 %Normal1.7-12.0The [facility] Comment on above:Performed By: #### CBC #### [facility] [address] [address] [address] Navneet Raza #2.6 103/ulNormal1.4-6.5The [facility] HospitalComment on above:Performed By: #### CBC #### [facility] [address] [address] [address] Navneet Rashidutrophils/100 WBC (Bld)45.0 %Uwitma69.0-75.0The [facility] HospitalComment on above:Performed By: #### CBC #### [facility] [address] [place] [address] Dr. Navneet GodwinPlatelet mean volume (Bld) [Entitic vol]10.1 fLNormal9.5-13.5The [facility] HospitalComment on above:Performed By: #### CBC #### [facility] [address] [place] [address] Dr. Navneet GodwinPLT296 103/csUcoxmg034-339Wxf [facility] HospitalComment on above: Performed By: #### CBC #### [facility] [address] [place] [address] Dr. Navneet GodwinRBC4.33 106/ulCritically low4.70-6.10The [facility] HospitalComment on above:Performed By: #### CBC #### [facility] [address] [place] [address] Dr. Navneet GodwinWBC5.8 103/ulNormal4.0-11.0The [facility] HospitalComment on above: Performed By: #### CBC #### [facility] [address] [place] [address] Dr. Navneet GodwinPROF CHEM 8 (BAS METB)on 03-06-0522Kxqpi gap [Moles/Vol]13.2 mmol/LNormalThe [facility] HospitalComment on above:Performed By: #### BMP #### [facility] [address] [place] [address] Dr. Navneet GodwinCalcium [Mass/Vol]9.1 mg/dLNormal8.5-10.1[facility] Comment on above:Performed By: #### BMP #### [facility] [address] [address] [address] Navneet GodwinChloride [Moles/Vol]106 mmol/FPmjdsz62-375JczCleveland Clinic Comment on above:Performed By: #### BMP #### [facility] [address] [address] [address] Navneet GodwinCO2 [Moles/Vol]23.7 mmol/HJpduwp34.0-32.0[facility] Comment on above:Performed By: #### BMP #### [facility] [address] [place] [address] Dr. Navneet GodwinCreatinine [Mass/Vol]1.06 mg/dLNormal0.70-1.30The [facility] HospitalComment on above:Performed By: #### BMP #### [facility] [address] [place] [address] Dr. Navneet CarcamoGFR-AF GHANAIAN>60Normal>=60[facility] ClinicComment on above:Performed By: #### BMP #### [facility] [address] [place] [address] Dr. Navneet CarcamoGFR-NON AF GHANAIAN>60Normal>=60[facility] ClinicComment on above:Performed By: #### BMP #### [facility] [address] [place] [address] Dr. Navneet GodwinGlucose [Mass/Vol]94 mg/aGPtyfzb66-828ZkbCleveland Clinic Comment on above:Performed By: #### BMP #### [facility] [address] [place] [address] Dr. Navneet GodwinPotassium [Moles/Vol]3.9 mmol/LNormal3.5-5.1[facility] Comment on above:Performed By: #### BMP #### [facility] [address] [place] [address] Dr. Navneet GodwinSodium [Moles/Vol]139 mmol/ADnvrwa557-242KowCleveland Clinic Comment on above:Performed By: #### BMP #### [facility] [address] [address] [address] Navneet GodwinUrea nitrogen [Mass/Vol]17.0 mg/dLNormal7.0-18.0The [facility] HospitalComhealthsource [place] on above:Performed By: #### BMP #### [facility] [address] [address] [address] Navneet GodwinUrea nitrogen/Creatinine [Mass ratio]16.0 mg/mgNormTriHealth Good Samaritan Hospitale [facility] HospitalComment on above:Performed By: #### BMP #### [facility] [address] [address] [address] Navneet GodwinXR CHEST 2 Von 00-46-7316SZ CHEST 2 VEXAM: CHEST 2 VIEWS HISTORY: Screening mammography prior [...] Electronically authenticated by: MICKY MORENO Date: 2022-05-30 10:52[facility]HealthECHOCARDIO M/2D COMPLETEon 94-56-3410RGALFODHDY M/2D COMPLETE Patient: PARAS GIRGSBY Exam Date: 04/18/2022 : 1965 Gender:M Ordering : DR BEN MACK . Admission #: [id number] Family : Order #: [id number] CLICK HERE TO VIEW EXAM ECHOCARDIOGRAM REPORT [...] Area(A4C): 16.30 cm2 Left Atrium Systolic Volume(A2C): 11767 mm3 Left Atrium Systolic Volume(A4C): 80553 mm3 Mitral Valve MV E to A [...] by: Heraclio Yu M.D. on 04/19/2022 at 18:16[facility]HealthCTA CHEST WO W CONon 10-39-9021GPW CHEST WO W CONEXAMINATION: CTA CHEST WO W CON HISTORY: Dyspnea [...] Electronically authenticated by: PADMINI WHITE Date: 2022-04-11 07:[address] [place], [place] [address]HEMOGLOBINon 97-33-6589Ntbewxpndu (Bld) [Mass/Vol]13.2 g/dL Critically low14.0-18.0[facility] ClinicComment on above:Performed By: #### HGB #### [facility] [address] [place] [address] Dr. Navneet Godwin Vital Signs Date TimeVital SignValuePerforming UyqpmekuuIpfsvovc01-87-5180 16:14-0400Body ulirkn944.2 cmAtamica Alcaraz DPM Work Phone: [facility] HospitalDbrfdmfedc30-68-8632 16:14-0400Body mass index (BMI) [Ratio]40.41 kg/v6Whjxwjhsiobhan Alcaraz DPM Work Phone: [facility] HospitalIphroxekkl53-94-3134 16:14-0400Body .03 kgAnthsiobhan Alcaraz DPM Work Phone: [facility] HospitalNmhqywmxjj01-86-8135 15:57-0400Body mass index (BMI) [Ratio]40.41 kg/m2Tocarito Dunham MD Work Phone: noMiss[facility] CenterSlzqkkqmuo24-65-2040 15:57-0400Body ahkopm952.03 kgTocarito Dunham MD Work Phone: noMiss[facility] CenterMatiacbcfq80-09-2417 13:32-0500Body lowvgw686.2 cmMaana Tatum PA Work Phone: [facility] HospitalUltwjsiwuk13-74-3734 13:32-0500Body mass index (BMI) [Ratio]37.59 kg/j1Taivnqiana Tatum PA Work Phone: [facility] HospitalZfmogfyzxx98-15-8678 13:32-0500Body dxidjl642.86 kgMaana Tatum PA Work Phone: NOMissouri [facility] Medical CenterDowzsvbfpb33-12-2968 15:18-0400Body mass index (BMI) [Ratio]40.25 kg/m2Tocarito Dunham MD Work Phone: noMiss[facility] CenterGneeobnhnd65-07-2536 15:18-0400Body ufmihn518.57 kgDebora Dunham MD Work Phone: noMiss[facility] CenterUwiyrmiorp07-47-9472 16:25-0400Body .18 Cheli Joaquin Other [place] [employer] Other 04-20-2023 16:25-0400Body mass index (BMI) [Ratio] 40.72 kg/q6Ghppppedro Joaquin Other [employer] Other 04-20-2023 16:25-0400Body .8 [degF]Yasmine Joaquin Other [employer] Other 04-20-2023 16:25-0400Body .94 kgYasmine Joaquin Other [employer] Other 04-20-2023 16:25-0400Diastolic blood ubtkyfyh08 mm[Hg] Yasmine Joaquin Other [employer] Other 04-20-2023 16:25-0400Respiratory rate18 /minAmbpedro Joaquin Other [employer] Other 04-20-2023 16:25-9777UfJ5% (BldA) [Mass fraction]97 % Yasmine Joaquin Other [employer] Other 04-20-2023 16:25-0400Systolic blood mm[Hg] Yasmine Joaquin Other [employer] Other 04-14-2023 10:10-0400Body gbeics363.18 Daliaamelrachel Guerrero Other [employer] Other 04-14-2023 10:10-0400Body mass index (BMI) [Ratio] 40.72 kg/u5JwkqvwEmma Guerrero Other [employer] Other 04-14-2023 10:10-0400Body oxfdgoppqdp39.7 [degF]Emma Guerrero Other [employer] Other 04-14-2023 10:10-0400Body oidqxb861.94 kgEmma Guerrero Other [employer] Other 04-14-2023 10:10-0400Respiratory rate18 /minEmma Guerrero Other [employer] Other 04-14-2023 10:10-5093FtU2% (BldA) [Mass fraction]94 % Emma Guerrero Other [employer] Other 04-12-2022 18:45-0400Body vroguo804.18 cmSemily Milligan Other [employer] Other 04-12-2022 18:45-0400Body mass index (BMI) [Ratio] 39.46 kg/v6Dxkrdldbsmarcellus Milligan Other [employer] Other 04-12-2022 18:45-0400Body trmdbrgjegq42.2 [degF] Dimple Milligan Other [employer] Other 04-12-2022 18:45-0400Body wzalhu421.31 kgStmarcellus Milligan Other [employer] Other 04-12-2022 18:45-0400Diastolic blood kwrmftap78 mm[Hg] Dimple Milligan Other [employer] Other 04-12-2022 18:45-0400Respiratory rate18 /minSemily Milligan Other [employer] Other 04-12-2022 18:45-1977AoN0% (BldA) [Mass fraction]96 % Dimple Milligan [facility] [employer] Other 04-12-2022 18:45-0400Systolic blood ozoyldnn877 mm[Hg] Dimple Milligan Other [facility] [employer] Other Encounters Encounter DateEncounter TypeCare ProviderFacilityStart: 08-20-2025 End: 93-30-7280ubbwjmdhsaFapbfol R NILLFacility:CD:[id number]: 08-04-2025 End: 08-94-2075Tbiqpb outpatient visit 25 minutesTocarito E Charla LEWIS Work Phone: [facility] [place] AllergyComment on above:Chronic bronchitis, unspecified chronic bronchitis type (HCC) (Primary Dx); Chronic rhinitisStart: 08-04-2025 End: 80-35-7432hdpqummrnzWBID E JOSUEKNot AvailableStart: 08-04-2025 End: 42-91-9357Okbzpq flowsheetDebora Dunham MD Work Phone: [facility]harat AllergyStart: 08-04-2025 End: 62-96-7277Lpnxoa flowsheetDebora Dunham MD Work Phone: [facility] [place] AllergyStart: 07-16-2025 End: 40-60-4279kyhgrulifvUapnozd HoyFacility:GS BellevueStart: 07-16-2025 End: 83-83-8062Wyfaogi encounter procedureMichael R NILL [phone]-MkcmqBer[facility] Hospital [facility] Nathalie Start: 07-10-2025 End: 66-06-7911vwtqqfuaxyRREUFAN [facility] Hospitaltart: 06-12-2025 End: 18-36-0567hsymmqmyjlDTGTMT [facility]ADel[facility] Start: 06-05-2025 End: 21-71-9787iaualmeazrOIWZNKC [facility] Hospitaltart: 04-30-2025 End: 03-14-8641Fzcakb outpatient visit 15 minutesAnthony S Rusher DPM Work Phone: NOAZ PODIATRYComment on above:Onychodystrophy (Primary Dx); OnychomycosisStart: 04-30-2025 End: 66-46-7193rcwojhdgfcJQPKYKM S RUSHERNot AvailableStart: 04-30-2025 End: 38-65-9799Lshgjp flowsheetAnthony S Rusher DPM Work Phone: [facility] FH PODIATRYStart: 04-30-2025 End: 68-63-8792Perkwv flowsheetAnthony S Rusher DPM Work Phone: noms PODIATRYStart: 04-18-2025 End: 91-08-4101ielzwydcyzOYPICleveland Clinic Medina Hospitaltart: 01-30-2025 End: 30-84-2392Ycpvlo outpatient visit 15 minutesTocarito Dunham MD Work Phone: [facility] SWS ALLComment on above:Severe persistent asthma without complication (CMS/HCC) (Primary Dx)Start: 01-30-2025 End: 78-94-2407clknxohsnkPZYM E RAMBASEKNot AvailableStart: 01-30-2025 End: 03-63-8882Uubypz flowsheetDebora Dunham MD Work Phone: [facility] SWS ALLStart: 01-30-2025 End: 46-23-0490Hmfwgt flowsheetDebora Dunham MD Work Phone: [facility] SWS ALLStart: 12-06-2024 End: 41-58-1671Ufjwap flowsheetJangelica. Heraclio Doshi DO Work Phone: [facility] ORTHOStart: 12-06-2024 End: 05-52-6119Bccnoj flowsheetJiker Doshi DO Work Phone: noms ORTHOStart: 12-06-2024 End: 52-40-4813Qwvdoz outpatient visit 15 minutesJrEllie Heraclio Yong Doshi DO Work Phone: noms PCF ORTHOComment on above:Acute pain of left knee (Primary Dx); Acute medial meniscus tear of left knee, initial encounterStart: 12-06-2024 End: 86-79-8570ceibizdlnpIPHERACLIO AMAYA AvailableStart: 11-27-2024 End: 14-30-9120gppwatrodwLBXENFL J MEYERNot AvailableStart: 11-20-2024 End: 23-56-8885Puksws flowsErich SALDIVAR Work Phone: n[facility] FB ORTHOPAEDICSStart: 11-20-2024 End: 57-11-7211Dbzqur Paolo SALDIVAR Work Phone: n[facility] FB ORTHOPAEDICSStart: 11-20-2024 End: 50-21-0197Vgfmnz outpatient new 30 minutesMattjyotsna SALDIVAR Work Phone: noms FB ORTHOPAEDICSComment on above:Acute pain of left knee (Primary Dx); Internal derangement of left kneeStart: 11-20-2024 End: 94-88-7040vspbkcrlncELTDLLO J MEYERNot AvailableStart: 10-07-2024 End: 00-46-7587kbyvxlnylwZMKBLakeHealth Beachwood Medical Centertart: 07-15-2024 End: 57-23-7616Hwewdu outpatient visit 15 minutesTodd Syed Dunham MD Work Phone: noms SWS ALLComment on above:Severe persistent asthma with (acute) exacerbation (CMS/HCC) (Primary Dx)Start: 07-15-2024 End: 72-86-1591Huivps flowsMatthew Dunham MD Work Phone: [facility] SWS ALLStart: 07-15-2024 End: 88-67-0848Jqnwep flowsMatthew Dunham MD Work Phone: noms SWS ALLStart: 03-15-2023 End: 70-37-2165fsfuxfrhsxFNMRQX SAMSAFacility:R6Bkils: 02-25-2023 End: 06-19-5759ivzgtpxbeqQZSHU LEWIS .Facility:U1Szcpz: 02-23-2023 End: 81-25-3522exccfctzcqFrlmr Keller Other [facility] [employer] Other Start: 87-56-9070Ejvflc outpatient visit 15 minutes Yasmine JoaquinFPG Urgent Care ClydeStart: 02-17-2023 End: 57-07-8380oxfoklpcllBxrgdc Dymond Other [facility] [employer] Other Start: 40-39-3786Ylktuw outpatient visit 15 minutes Emma GuerreroFPG Urgent Care ClydeStart: 85-55-1596Vhikxorvo for general adult medical examination without abnormal findingsDR BEN HOY .[facility] Campustart: 01-21-2023 End: 73-72-6158peqywwuorlIG BEN HOY .Facility:Y0Ppyfm: 01-21-2023 End: 72-28-4641Cvgwvuvoa for general adult medical examination without abnormal findingsDR BEN HOY .Facility:V1Hdqmt: 12-26-2022 End: 47-31-9098zhquchgdyvYBAFOV SAMSAFacility:N1Vwvsy: 10-01-2022 End: 08-56-2683gbquabjdxdMA EHAB ELTAHAWYFacility:T0Ofnxh: 09-02-2022 End: 14-74-9097aatyxpiylyZH EHAB ELTAHAWYFacility:M9Rjkhv: 07-27-2022 End: 79-21-6008wselqzzxcsURKZJW SAMSAFacility:G8Bboeq: 06-30-2022 End: 61-71-6671sgcnivlijjFYAMGW SAMSAFacility:U6Pnmtl: 06-30-2022 End: 98-06-3962jmonipanrvUZIHCFC BOESFacility:M4Lbupa: 05-30-2022 End: 52-65-3264knawacqbtpPT BEN HOY .Facility:B7Bjqpd: 04-18-2022 End: 61-67-2528exyvjaddiwBQ BEN HOY .Facility:F2Weium: 04-09-2022 End: 72-00-9561wffhavbnlxHB BEN HOY .Facility:V0Xppai: 03-24-2022 End: 32-37-1290jdbdvksbydEI BEN HOY .Facility:V9Jbnml: 02-15-2022 End: 82-68-5582nnjjkspjxrZgmmxfwqd Breault Other [facility] [employer] Other Start: 05-56-7061Omymps outpatient visit 15 minutes Dimple Rodrigez [facility] Procedures DateProcedureProcedure DetailPerforming ClinicianStart: 10-15-2339Surlxreprh examination knee 1/2 viewsMattjyotsna SALDIVAR Work Phone: Start: 91-54-6947CPE screeningNATHERRICK CAMPUSSAComment on above:Performed By: #### PSASC #### [facility] [address] [place] [address] Dr. Navneet GodwinStart: 13-03-2109Reehiwe of placement of stent for coronary artery diseaseHistory of coronary artery stent placementJr. Stepanic DO Work Phone: Start: 92-77-9663BgekicijdsrOfqgpva NILL Start: 01-26-9993ScgbqttrljjvhwikuaylgfociqAzvbruw NILL Extracorporeal shockwave lithotripsy of calculus of kidneyMichael NILL Repair of meniscusMichael NILL Repair of musculotendinous cuff of shoulderMichael NILL Repair of umbilical herniaMichael NILL TonsillectomyMichael NILL Plan of Treatment DateCare ActivityDetailAuthorStart: 08-04-2025 End: 60-51-8343Qujbqnn encounter procedureNOHI SWS ALLComment on above:Arrived Start: 88-20-5569Wcojfkihr vaccinationPARK CITY HOSPITAL HealthcareStart: 04-30-2025 End: 16-27-2536Ybjkkdk encounter glfnyntza59/25/2025 4:15 PM EDT Office Visit [facility] [address] [place] [phone] Angel Alcaraz, DPM [address] [place], [place] [id number] ArrivedSKAGIT VALLEY HOSPITAL PODIATRYComment on above:ArrivedStart: 01-30-2025 End: 57-94-6646Bylnghg encounter procedureNOHI SWS ALLComment on above:Arrived Start: 12-31-2024 End: 50-57-3431Vhspmmx encounter kidewlnae57/25/2025 11:30 AM EST Office Visit [facility] [address] [place] [phone] Jr. Heraclio Doshi C, DO [address] [address] N[facility] ORTHOPAEDICSStart: 12-06-2024 End: 18-19-6400Lbcruav encounter procedureNOHI PCF ORTHOComment on above:Acute pain of left knee (Primary Dx); Acute medial meniscus tear of left knee, initial encounterStart: 11-20-2024 End: 51-03-8943VH Knee - left WO contrastMR knee left wo IV contrast Imaging Routine Internal derangement of left knee Expected: 11/20/2024 (Approximate), Expires: 11/20/2025[facility] Work Phone: Comment on above:Expected: 11/20/2024 (Approximate), Expires: 11/20/2025Start: 11-20-2024 End: 93-56-9571Vpydgas encounter vyntopzce24/15/2025 1:30 PM EST Office Visit [facility] [address] [place] [phone] Giovanny Tatum, JANNA [address] [facility] [address] [place] [address] Acute pain of left knee (Primary Dx)[facility] Comment on above:Acute pain of left knee (Primary Dx)Start: 07-15-2024 End: 44-74-5069Wpyxygk encounter uglkzriqo83/09/2024 3:20 PM EDT Office Visit [facility] [address] [place] [phone] Debora Dunham MD [address] [place] [address] ArrivedNOADVENTIST [facility] ALLComment on above:ArrivedStart: 62-73-7996Iqfxvlcpz vaccinationInfluenza Vaccine (#1)NOM HealthcareStart: 02-41-3843Ztearhlsy for malignant neoplasm of colonNOHI Healthcare Immunizations Immunization DateImmunizationNotesCare SoerugmqIpqsbjxe88-18-6014QXJJ-VbM-0 (COVID-19) mRNA-1273 vaccineMichael NILL [phone]-HfyknBerger Hospital [facility] [place] 45-29-1507AXXB-CoV-2 (COVID-19) mRNA-1273 vaccineMichael NILL [phone]-YjxlhBerger Hospital [facility] [place] Comment on above:Result Comment: 2025-07-02: 4028-77-4889CTVN-CoV-2 (COVID-19) mRNA-1273 vaccineMichael NILL [phone]-BuuyoBerger Hospital [facility] [place] NEGATED: Highlighted row has not occurred!76-68-6736xhlbjgqng virus vaccine, unspecified formulationMichael NILL [phone]-PiulmBerger Hospital [facility] [place] Payers DatePayer CategoryPayerPolicy [id number] [employer] Insurance [id number] [employer] [id number] 2022-Present [address] [place] [id number] 2.16840.1.913754.3.57[id number] 2.840.1.246170.3.57[id number] 2.840.1.573815.3.57[id number] 2.840.1.082878.3.57[id number] 2.840.1.238534.3.57[id number] 2.840.1.901026.3.57[id number] 2.840.1.638812.3.57[id number] 2.840.1.823239.3.57[id number] 2.840.1.781268.3.57[id number] 2.840.1.828506.3.57[id number] 2.16840.1.970917.3.57[id number] 2.840.1.679475.3.57[id number] 2.16.840.1.056636.3.579.[id number] 2.16.840.1.021431.3.57[id number] 2.16.840.1.859220.3.57[id number] 2.16.840.1.172582.3.579.[id number] 2.16.840.1.343094.3.57[id number] 2.16.840.1.934530.3.579.2.[id number] 2.16.840.1.540323.3.579.2.956825-83-7725Eboishf1966306 2.16.840.1.158305.3.57[id number] 2.16.840.1.270642.3.579.[id number] 2.16.840.1.085181.3.57[id number] 2.840.1.686281.19 Social History DateTypeDetailFacilityStart: 03-28-2024 End: 79-24-2861[facility]tart[facility] 02-14-2024 End: 56-68-2111Pmzypsl smoking status NHISEx-smokerNOMS HealthcareStart: 12-11-1986 End: 04-33-9040Cccikul of tobacco useCurrent smokerNOMS HealthcareStart: 12-11-1986 End: 26-81-5828Fbyxdor of tobacco useCigarette SmokerNOMS HealthcareStart: 02-14-2024 End: 61-08-6939Wupknfp use and exposureFormer smokeless tobacco userPARK CITY [facility] End: 80-51-8212Yzxdnrg of tobacco useSnuff UserPARK CITY HOSPITAL HealthcareStart: 07-15-2024 End: 62-04-7737Mbmcbizcr beverage intakeEx-drinker (finding)[facility] Start: 03-28-2024 End: 57-34-9248Tqxfejy of Social functionNOHI HealthcareStart: 10-88-4975Ylcutan CommentCaffeine intake: >4 cups per dayPARK CITY HOSPITAL HealthcareStart: 82-96-2678Geg assigned at birthSouth[facility] HealthcareStart: 09-81-8223Vycejm identityIdentifies as male gender (finding)[facility] HospitalTobacco smoking statusNeverPaulding County Hospital Surgery [facility] Systemexual OrientationPaulding County Hospital Surgery [place] Start: 00-97-0687SmrQvlq (finding)[facility] Medical Equipment Procedure CodeEquipment CodeEquipment Original TextEquipment IdentifierDates HERNIA REPAIR, ROBOT ASSISTED ALEXIA LEWIS, Lee Wagner 10/07/19 Non Biological Abdomen {01}[id number]{[id number] FDAStart: 10-07-2019 Clinical Notes 02-15-2022 to 08-04-2025 Note Date & [id number] History of Present illness Narrative* Debora Dunham MD - 08/04/2025 4:00 PM EDT Paras Grigsby returns to the office today. [...] Patterson in 2-3 months. documented in this encounterReynolds County General Memorial [id number] NoteGeneral Surgery Office/Clinic Note Chief Complaint consultation for anemia HPI Staff 59 year old male presents on consultation from Dr. Mack for anemia. Labs completed 06/10 with H/H 11.4and 34.2. Reports occasional SOB, dizziness, lightheadedness and [...] bms or blood in stools, no melena; noabd complaints; no dysphagia or early satiety; on baby asa, Plavix and Diclofenac daily; abd operations significant for robotic-assisted umbilical hernia repair with mesh; last EGD/colonoscopy in 2016, with removal of hyperplastic polyp and evidence of Walker's esophagus; former smoker; no fmhx ofGI malignancy or IBD. Review of Systems PHQ Score Initial Depression Screen Score: 0 SCORE ROS - Provider Constitutional: no fever, no sweats, no weight loss. Eyes: no glasses, no blurred vision, no visual loss. ENMT: no dentures, no hoarseness, no swallowing difficulties, no hearing loss, no ear infection(s),no nose bleeds. Cardiovascular: normal blood pressure, no [...] mg= 1 tab(s), O (more content not included)...[facility] HospitalComment on above:Result Comment: Electronically Signed By: ALEXIA LEWIS, Lee Becker\Date and Time Signed: 07/16/25 16:22 [id number] Note Cardiovascular Medicine [facility] SUBJECTIVE Chief Complaint Patient presents with Coronary Artery Disease Hypertension 1 month follow up S/P right/left heart cath Echo done 3 weeks ago at [facility] Stent placement 2021 Stent placement 2021 [...] routine 6 mo follow up. Says Dr. Mack just decreased his carvedilol to 12.5mg bid due to low BP's and lightheadedness. C/o chest pain also. Hasn't had echo or stress test since summer 2023. He notes for the past few weeks has not felt well. He has noticed increase SOB and chest pain with exertion. 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 Chest pain is left sided, non radiating, 5-6/10. Resting improves the pain and dyspnea. Denies any palpitations. He has some dizziness. He was experiencing some low BP's, dr. Mack reduced his coreg to 12.5mg BID. BP at home runing 100-120/60s 07/10/2025 Since last seen he underwent a heart cath which found stable CAD. We reviewed findings. He has also had an ECHO. We reviewed findings. His VILLAVICENCIO is unchanged. Chest pain is less often. 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 Denies c/o orthopnea, PND, LE edema, dizziness/LH, palpitations, syncope. Patient Active Problem List Diagnosis Chest pain CAD in [place] artery Essential hypertension COPD (chronic obstructive pulmonary disease) ([facility]) S/P drug eluting coronary stent placement Hyperplastic polyp of intestine Dyspnea Shortness of breath Severe persistent asthma with acute exacerbation ([facility]) Degeneration of intervertebral disc of cervical region Other cervical disc displacement at C6-C7 level Radiculopathy, cervical region Spinal stenosis, cervical region Hypertensive retinopathy Umbilical hernia VILLAVICENCIO (dyspnea on exertion) Past Medical History: Diagnosis Date COPD (chronic obstructive pulmonary disease) ([facility]) Coronary artery disease Hyperlipidemia Hypertension [...] 100 mg tablet, T (more content not included)...[facility]08-21-2025 NoteNo significant changes on his ECHO to explain his dyspnea. Recommend he see pulmonary. Will he see someone in [place]?[facility] 06-12-2025 NotePatient: Paras Grigsby Pre-sedation Evaluation: Moderate sedation History of Present [...] 10/07/2024 Severe persistent asthma with acute exacerbation ([facility]) 11/23/2023 Essential hypertension 08/04/2022 COPD (chronic obstructive pulmonary disease) ([facility]) 08/04/2022 S/P drug eluting coronary stent placement 08/04/2022 CAD in [place] artery 08/03/2022 Dyspnea 06/07/2022 Shortness of breath 11/22/2018 Hyperplastic polyp of intestine 05/03/2017 VILLAVICENCIO (dyspnea on exertion) 06/06/2025 Chest pain 07/14/2022 Allergies: Allergies[2] 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 Barbara Abrams PGY-4 Manager Training [facility] [1] Past Medical History: Diagnosis Date COPD (chronic obstructive pulmonary disease) ([facility]) Coronary artery disease Hyperlipidemia Hypertension Sleep apnea [...] [4] No current facility-administered medications for this encounter.[facility]07-31-2025 NotePatient here c/o SOB. He was seen last month by Damian Xavier CNP last month for routine 6 mo follow up. Says Dr. Mack just decreased his carvedilol to 12.5mg bid [...] light-headedness. All other systems reviewed and are negative.[facility] 06-05-2025 NoteCardiovascular Medicine [facility] SUBJECTIVE Chief Complaint Patient presents with [...] routine 6 mo follow up. Says Dr. Mack just decreased his carvedilol to 12.5mg bid due to low BP's and lightheadedness. C/o chest pain also. Hasn't had echo or stress test since summer 2023. He notes for the past few weeks has not felt well. He has noticed increase SOB and chest pain with exertion. 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 Chest pain is left sided, non radiating, 5-6/10. Resting improves the pain and dyspnea. Denies any palpitations. He has some dizziness. He was experiencing some low BP's, dr. Mack reduced his coreg to 12.5mg BID. BP at home runing 100-120/60s Patient Active Problem List Diagnosis Chest pain CAD in [place] artery Essential hypertension COPD (chronic obstructive pulmonary disease) ([facility]) S/P drug eluting coronary stent placement Hyperplastic polyp of intestine Dyspnea Shortness of breath Severe persistent asthma with acute exacerbation ([facility]) Degeneration of intervertebral disc of cervical region Other cervical disc displacement at C6-C7 level Radiculopathy, cervical region Spinal stenosis, cervical region Hypertensive retinopathy Umbilical hernia VILLAVICENCIO (dyspnea on exertion) Past Medical History: Diagnosis Date COPD (chronic obstructive pulmonary disease) ([facility]) Coronary artery disease Hyperlipidemia Hypertension [...] General: Skin is w (more content not included)...[facility]06-25-2025 History of Present illness Narrative* Angel Alcaraz, DPM - 04/30/2025 4:15 PM EDT Images from the original note [...] History Past Medical History: Diagnosis Date Asthma ([facility]) 2021 COPD (chronic obstructive pulmonary disease) ([facility]) 2021 History of medical problems [...] in the morning and 75 mg before bedtime.Do not crush, chew, or split.., Disp: , [...] mouth in the morning. Take with meals., Disp:, Rfl: furosemide (Lasix) 40 MG tablet, , [...] symptomatology associated with the nail. For now Iwas able to debride the nail in length [...] understanding. Angel Alcaraz DPM documented in this encounterReynolds County General Memorial [id number] NotePatient here today for a 6 month. Patient states he been sick with the URI x1 week. Patient taking ATB. Patient state he still has VILLAVICENCIO, lightheaded. Review of Systems Cardiovascular: Positive for dyspnea on exertion. Neurological: Positive for light-headedness.[facility] 04-18-2025 NoteSUBJECTIVE Reason for Visit: Paras Grigsby is a [...] Rate 08/03/2022 53 Atrial Rate 08/03/2022 53 NV Interval 08/03/2022 164 QRS DURATION 08/03/2022 100 QT Interval 08/03/2022 424 QTC CALCULATION(BAZETT) 08/03/2022 397 P [place] 08/03/2022 39 R-[place] 08/03/2022 -7 T Wave [place] 08/03/2022 51 Auto WBC 08/03/2022 4.48 RBC [...] Rate 08/03/2022 50 Atrial Rate 08/03/2022 50 NV Interval 08/03/2022 170 QRS DURATION 08/03/2022 104 QT Interval 08/03/2022 436 QTC CALCULATION(BAZETT) 08/03/2022 397 P [place] 08/03/2022 50 R-[place] 08/03/2022 4 T (more content not included)...[facility]03-27-2025 History of Present illness Narrative* Debora Dunham MD - 01/30/2025 4:00 PM EDT Paras Grigsby returns to the office today [...] Ohtuvarye per patient preference. Stop Dupixent per patientpreference. I cautioned the patient about the potential for severe exacerbation while off medication but he would like to stop all his medications and see how he does and he is aware of this risk. Follow-up in 6 months or sooner should problems arise. documented in this encounterReynolds County General Memorial [id number] History of Present illness Narrative* Jr. Heraclio Doshi, DO - 12/06/2024 8:15 AM EST Images from the original note were not included. HISTORY OF PRESENT ILLNESS: EST PT Paras Grigsby is an 59 y.o. @ male. (EST PT-PREVIOUSLY SAW ROSENDO TATUM ON 11/20/24) RECHECK LT KNEE PAIN ~2 MONTHS. PT FELT A POP IN KNEE- PT STATES PAIN IS IMPROVING. HERE FOR MRI RESULTS, DONE ON 11/27/24 AT [facility]. PT IS ON PLAVIX XRAY LT KNEE 11/20/24 [facility] MRI LT KNEE 11/27/24 [facility] ([facility]) NO CORTISONE INJ NO MDP/PREDNISONE [...] including symptoms, physical exam, MRI, and x-rays. MRIis consistent with a bone bruise and medial meniscus tear. Patient is nearly completely asymptomatic today on exam and symptoms. We have discussed his restrictions in his home exercise program. We'llsee him back in 1 month. If his symptoms persist or worsen, we'll recommend a diagnostic and operative arthroscopy for medial meniscus tear, but right now he is refusing surgical intervention becausehe's progressing very well. He understands the risks and benefits of said treatment. documented in this encounterReynolds County General Memorial [id number] History of Present illness Narrative* JANNA Odom - 11/20/2024 1:30 PM EST Images from the original note were not [...] past 2 months, which he attributes to anincident where he felt a sharp pain while operating his tractor. The pain is described as sharp andis particularly pronounced on the medial side of the knee. He also reports occasional catching sensations in the same area. The pain is a daily occurrence and intensifies with weight-bearing activities. PAST MEDICAL HISTORY: Past Medical History: Diagnosis Date Asthma ([facility]) 2021 COPD (chronic obstructive pulmonary disease) ([facility]) 2021 History of medical problems 2012 precancerous throat polyps Hyperlipidemia ([facility]) Hypertension ([facility]) PAST SURGICAL HISTORY: Past Surgical [...] lateral weight bearing surface. Mild patella femoral changesfor arthritis Impression: no acute bony process left [...] a sharp pain in his knee while onhis tractor. Symptoms are present daily, worse with [...] for requiring urgent evaluation. documented in this encounterReynolds County General Memorial [id number] [facility] Chief Complaint: Patient [...] history of COPD (chronic obstructive pulmonary disease) ([facility]), Coronary artery disease, Hyperlipidemia, Hypertension, [...] 109, BUN 1 (more content not included)... [facility]09-09-2024 History of Present illness Narrative* Debora Dunham MD - 07/15/2024 3:20 PM EDT Paras Grigsby returns to the office today [...] from this medication. He has not been usingany inhaled corticosteroid. EXAM The patient appears comfortable [...] exercise more with regular walking and follow-up isarranged in 6 months sooner should problems arise. documented in this encounterReynolds County General Memorial [id number] Evaluation note* Encounter Date Diagnosis Assessment Notes Treatment Notes Treatment Clinical Notes Feb, Urticaria (ICD-10 - L50.9) Discussed diagnosis with patient. We will send in Rx of prednisone taper to use as directed. Continue iyih-zir-rsaffbk Benadryl/Zyrtec or Claritin. Advised patient to avoid hot showers/baths encouraged use of cool compresses. Patient needs to follow-up with PCP if this rash does not improve with treatment. Immediate evaluation in ER for signs and symptoms as discussed. Patient verbalizes understanding and is agreeable to treatment plan. [employer] Other 04-14-2023 Evaluation note* Encounter Date Diagnosis Assessment Notes Treatment Notes Treatment Clinical Notes Feb, Urticaria (ICD-10 - L50.9) Hives home care material was printed Drink plenty fluids, get plenty of rest. Take the prednisone and Pepcid as prescribed, you may stopthe Pepcid after 7 days. Take Zyrtec every morning and Benadryl every night until the symptoms are gone. Follow-up with your family physician if no improvement in the rash or no improvement in your cough in 2 to 3 days. Go to the ER for worsening symptoms or concerns Feb,cute cough (ICD-10 - R05.1) [employer] Other 04-12-2022 Evaluation note* Encounter Date Diagnosis Assessment Notes Treatment Notes Treatment Clinical Notes Feb, Infected tooth (ICD-10 - K04.7) Take medications as directed.Highly encourage patient to contact dentist TIARA for further treatmentof infection. Do not take OTC medications like ibuprofen with prescriptions [employer] Other Evaluation + Plan note No data available for this section [facility] [place] Evaluation note* Diagnosis Severe persistent asthma with (acute) exacerbation (CMS/HCC)- Primary documented in this encounter [facility] [...] Dermatophytosis of nail documented in this encounter [facility]* Diagnosis Chronic bronchitis, unspecified chronic bronchitis type (HCC)- Primary Chronic rhinitis documented in this encounter [facility] HealthcareHistory general Narrative - Reported* Type Description Date Medical History Benign essential HTN Surgical Historyknee surgerySurgical Historyshoulder surgerySurgical History tonsillectomy and adenoidectomySurgical Historywisdom teethSurgical History vasectomyHospitalization Historysee above [employer] Other History general Narrative - Reported* Type Description Date Medical History Benign essential HTN Medical HistoryHigh cholesterolSurgical Historyknee surgerySurgical History shoulder surgerySurgical Historytonsillectomy and adenoidectomySurgical History wisdom teethSurgical HistoryvasectomySurgical [id number] Historysee above [employer] Other Hospital Discharge instructions No data available for this section [facility] [place] Progress note No data available for this section [facility] [place] Summary Purpose Family History No Family History Records Found No data available for this section No Family History Records FoundNo Family History Records FoundNo Family History Records Found Advance Directives No Advanced Directives Records FoundNo Advanced Directives Records FoundNo Advanced Directives Records FoundNo Advanced Directives Records Found Additional Source Comments REASON FOR VISIT (unrecogniz ed section and content) ReasonCommentsFollow-upNo surgeries; no hospital stays.ReasonCommentsPainReason CommentsFollow-upReasonCommentsnail fungus Glen Grigsby is a 58yo patient presents with toenail fungus FUV. SS 9.5ReasonCommentsFollow-upSIX MONTH FOLLOW UP ON ASTHMA pt states he still has SOB but did just have a heart cath in June (unrecognized sect ion and content) No Status Records FoundNo Status Records FoundNo Status Records FoundNo Status Records Found INFORMATION SOURCE (unrecogn ized section and content) DATE CREATED AUTHOR 03/19/2023 [facility] DATE CREATED AUTHOR AUTHOR'S ORGANIZ ATION 08/10/2025 [facility] EPIC DATE CREATED AUTHOR AUTHOR'S ORGANIZ ATION 08/28/2025 [facility] DATE CREATED AUTHOR AUTHOR'S ORGANIZ ATION 08/28/2025 [facility] Care Teams (unrecognized sec tion and content) Team MemberRelationshipSpecialtyStart DateEnd Date Ben Mack MD [address] [place] [address] PCP - General06/05/23Team MemberRelationshipSpecialtyStart DateEnd Date Ben Mack MD [address] [place] [address] PCP - [facility]06/05/23Te MemberRelationshipSpecialtyStart DateEnd Date Ben Mack MD [address] [facility], [place] [address] [facility] - [facility]06/05/23Te MemberRelationshipSpecialtyStart DateEnd Date Ben Mack MD [address] [facility], [place] [address] [facility] - [facility]06/05/23Te MemberRelationshipSpecialtyStart DateEnd Date Ben Mack MD [address] [facility], [place] [address] [facility] - [facility]06/05/23Te MemberRelationshipSpecialtyStart DateEnd Date Ben Mack MD [address] [facility], [place] [address] [facility] - [facility]06/05/23Te MemberRelationshipSpecialtyStart DateEnd Date Ben Mack MD [address] [facility], [place] [address] [facility]06/05/23Te MemberRelationshipSpecialtyStart DateEnd Date Ben Mack MD [address] [facility], [place] [address] [facility]06/05/23 FOR RECORDS PERTAINING TO PATIENTS WHO ARE [...] BE BASED ON THE PRIMARY CLINICAL RECORDS. [employer] [facility]. provides no warranty or guarantee of the accuracy or completeness of information in this document.
[2025-10-14 16:27] LABS: Free T3 3.77 pg/mL (2.18-3.98); Thyroid Stimulating Hormone 0.070 uIU/mL (0.358-3.740)
== END 2025-10-14 15:38 | disposition home or self-care (01) ==
PROVIDERS: PCP Family Medicine; Visit Provider Family Medicine
DX: E03.9 Hypothyroidism, unspecified (principal)
CPT/HCPCS: 36415; 84436; 84443; 84481